=== PATIENT | female | born 1940 | race Caucasian/White ===

== ENCOUNTER 2017-12-14 14:03 | Inpatient (IN) | payer MEDICARE, BC ==
[2017-12-14] MEDS ORDERED: IPRATROPIUM-ALBUTEROL 3 ML NEB INHALATION STA (14:05)
[2017-12-14] MEDS ORDERED: SODIUM CHLORIDE 0.9% 500 ML IV STA (14:05)
[2017-12-14] MEDS ORDERED: SODIUM CHLORIDE 0.9% 1,000 ML IV STA (14:05)
[2017-12-14] MEDS ORDERED: MAGNESIUM SULFATE-D5W PMX 1 GM in DEXTROSE/WATER 1 100ML.BAG IVPB STA (14:05)
[2017-12-14] MEDS ORDERED: methylPREDNISolone SOD SUCCI 125 MG/2 ML VIAL IV STA (14:05)
[2017-12-14 14:56] LABS: Basophils % (A) 0 %; Eosinophils % (A) 0 %; HCT 44.4 % (34.0-46.0); HGB 14.6 gm/dL (11.4-16.0); Lymphocytes # (A) 1.3 k/uL (1.0-4.8); Lymphocytes % (A) 11 %; MCHC 32.9 g/dL (31.0-37.0); Mean Platelet Volume 6.9; Monocytes # (A) 0.7 k/uL (0-1.0); Monocytes % (A) 6 %; Neutrophils # (A) 9.8 k/uL (1.3-7.7); Neutrophils % (A) 82 %; Platelet Count 204 k/uL (150-450); RBC 4.88 m/uL (3.80-5.40); RDW 13.7 % (11.5-15.5)
[2017-12-14 14:57] LABS: Partial Thromboplastin Time 22.7 sec (22.0-30.0); Prothrombin Time 9.9 sec (9.0-12.0)
--- NOTE | 2017-12-14 15:02 | XR ---
EXAMINATION TYPE: XR chest 2V DATE OF EXAM: 12/14/2017 COMPARISON: 12/14/2017 HISTORY: Shortness of breath and productive cough TECHNIQUE: Frontal and lateral views of the chest are obtained. FINDINGS: Increased anterior posterior diameter chest, pulmonary hyperinflation and biapical lucency are seen representing above underlying COPD appearing radiographically severe. Mild multilevel degen erative changes of the thoracic spine are also noted. Cardiomediastinal silhouette is nonenlarged and elongated. No focal consolidation, pleural effusion or pneumothorax is seen. IMPRESSION: No acute cardiopulmonary process. Findings suggestive of severe COPD.
[2017-12-14 15:34] LABS: Creatine Kinase 43 U/L (30-135)
[2017-12-14 15:40] LABS: ALT 20 U/L (9-52); AST 25 U/L (14-36); Albumin 3.8 g/dL (3.5-5.0); Alkaline Phosphatase 59 U/L (38-126); Anion Gap 11 mmol/L; Blood Urea Nitrogen 21 mg/dL (7-17); Calcium 9.4 mg/dL (8.4-10.2); Carbon Dioxide 27 mmol/L (22-30); Chloride 105 mmol/L (98-107); Glucose 106 mg/dL (74-99); Magnesium 1.7 mg/dL (1.6-2.3); Potassium 3.9 mmol/L (3.5-5.1); Sodium 143 mmol/L (137-145); Total Bilirubin 0.9 mg/dL (0.2-1.3)
[2017-12-14 15:46] LABS: Creatine Kinase MB 1.1 ng/mL (0.0-2.4); Troponin I <0.012 ng/mL (0.000-0.034)
--- NOTE | 2017-12-14 16:27 | ED ---
SOB HPI - General Chief Complaint: Shortness of Breath Stated Complaint: Diff Breathing Time Seen by Provider: 12/14/17 14:05 Source: patient, RN notes reviewed Mode of arrival: EMS Limitations: no limitations - History of Present Illness Initial Comments: This is a 77-year-old female with a long history of smoking 1 pack cigarettes per day but no diagnosis of COPD or asthma states she had the onset 5 days ago shortness of breath is got progressively worse throughout the week. No fevers chills nausea vomiting sweats or chest pain she did take her 's antibiotics earlier and awake without relief she says a doctor many years. No other modifying factors at this time. She did start getting relief after EMS arrived and she was given updraft and oxygen. MD Complaint: shortness of breath - Related Data Home Medications Medication Instructions Recorded Confirmed Amoxic-Pot Clav 875-125Mg 1 tab PO Q12HR 12/14/17 12/14/17 [Augmentin 875-125] Budesonide/Formoterol Fumarate 1 puff PO RT-DAILY 12/14/17 12/14/17 [Symbicort 160-4.5 Mcg Inhaler] Dayquill 5 ml PO DAILY 12/14/17 12/14/17 Allergies Allergy/AdvReac Type Severity Reaction Status Date / Time No Known Allergies Allergy Verified 12/14/17 15:16 Review of Systems ROS Statement: Those systems with pertinent positive or pertinent negative responses have been documented in the HPI. ROS Other: All systems not noted in ROS Statement are negative. Past Medical History Past Medical History: No Reported History Past Surgical History: Appendectomy, Tonsillectomy Past Psychological History: No Psychological Hx Reported Smoking Status: Current every day smoker Past Alcohol Use History: Rare Past Drug Use History: None Reported General Exam - General Exam Comments Initial Comments: This a well-developed well-nourished awake alert oriented 3 female who is dyspneic Limitations: no limitations General appearance: alert, anxious, in distress Head exam: Present: atraumatic, normocephalic, normal inspection Eye exam: Present: normal appearance, PERRL, EOMI. Absent: scleral icterus, conjunctival injection, periorbital swelling ENT exam: Present: mucous membranes dry Neck exam: Present: normal inspection. Absent: tenderness, meningismus, lymphadenopathy Respiratory exam: Present: wheezes, accessory muscle use, decreased breath sounds. Absent: respiratory distress, rales, rhonchi, stridor Cardiovascular Exam: Present: regular rate, normal rhythm, normal heart sounds. Absent: systolic murmur, diastolic murmur, rubs, gallop, clicks GI/Abdominal exam: Present: soft, normal bowel sounds. Absent: distended, tenderness, guarding, rebound, rigid Extremities exam: Present: normal inspection, full ROM, normal capillary refill. Absent: tenderness, pedal edema, joint swelling, calf tenderness Back exam: Present: normal inspection Neurological exam: Present: alert, oriented X3, CN II-XII intact Psychiatric exam: Present: normal affect, normal mood Skin exam: Present: warm, dry, intact, normal color. Absent: rash Course Vital Signs 12/14/17 12/14/17 12/14/17 14:09 14:24 14:30 Temperature 97.7 F Pulse Rate 100 93 Respiratory 16 30 H Rate Blood Pressure 201/111 O2 Sat by Pulse 95 Oximetry 12/14/17 12/14/17 14:33 15:24 Temperature Pulse Rate 85 89 Respiratory 16 Rate Blood Pressure 156/98 O2 Sat by Pulse 95 Oximetry - Reevaluation(s) Reevaluation #1: 12/14/17 16:26 Reevaluation reveals some improvement in her oxygenation is improved still wheezing still dyspneic and working to breathe but much improved Reevaluation #2: 12/14/17 16:28 We did discuss smoking and cessation and the benefits thereof. The time lasted 3.1 minutes Medical Decision Making - Medical Decision Making Patient will require inpatient treatment I did discuss case with patient family also with Dr. Ritchie who did come the emergency department see the patient. - Lab Data Result diagrams: 12/14/17 14:20 12/14/17 14:20 Lab Results 12/14/17 12/14/17 12/14/17 Range/Units 14:20 14:20 14:20 WBC 12.0 H (3.8-10.6) k/uL RBC 4.88 (3.80-5.40) m/uL Hgb 14.6 (11.4-16.0) gm/dL Hct 44.4 (34.0-46.0) % MCV 91.0 (80.0-100.0) fL MCH 30.0 (25.0-35.0) pg MCHC 32.9 (31.0-37.0) g/dL RDW 13.7 (11.5-15.5) % Plt Count 204 (150-450) k/uL Neutrophils % 82 % Lymphocytes % 11 % Monocytes % 6 % Eosinophils % 0 % Basophils % 0 % Neutrophils # 9.8 H (1.3-7.7) k/uL Lymphocytes # 1.3 (1.0-4.8) k/uL Monocytes # 0.7 (0-1.0) k/uL Eosinophils # 0.0 (0-0.7) k/uL Basophils # 0.0 (0-0.2) k/uL PT (9.0-12.0) sec INR (<1.2) APTT (22.0-30.0) sec Sodium 143 (137-145) mmol/L Potassium 3.9 (3.5-5.1) mmol/L Chloride 105 (98-107) mmol/L Carbon Dioxide 27 (22-30) mmol/L Anion Gap 11 mmol/L BUN 21 H (7-17) mg/dL Creatinine 0.57 (0.52-1.04) mg/dL Est GFR (CKD-EPI)AfAm >90 (>60 ml/min/1.73 sqM) Est GFR (CKD-EPI)NonAf >90 (>60 ml/min/1.73 sqM) Glucose 106 H (74-99) mg/dL Calcium 9.4 (8.4-10.2) mg/dL Magnesium 1.7 (1.6-2.3) mg/dL Total Bilirubin 0.9 (0.2-1.3) mg/dL AST 25 (14-36) U/L ALT 20 (9-52) U/L Alkaline Phosphatase 59 (38-126) U/L Total Creatine Kinase 43 (30-135) U/L CK-MB (CK-2) 1.1 (0.0-2.4) ng/mL CK-MB (CK-2) Rel Index 2.6 Troponin I <0.012 (0.000-0.034) ng/mL NT-Pro-B Natriuret Pep pg/mL Total Protein 7.0 (6.3-8.2) g/dL Albumin 3.8 (3.5-5.0) g/dL 10/05/18 10/05/18 Range/Units 14:20 14:20 WBC (3.8-10.6) k/uL RBC (3.80-5.40) m/uL Hgb (11.4-16.0) gm/dL Hct (34.0-46.0) % MCV (80.0-100.0) fL MCH (25.0-35.0) pg MCHC (31.0-37.0) g/dL RDW (11.5-15.5) % Plt Count (150-450) k/uL Neutrophils % % Lymphocytes % % Monocytes % % Eosinophils % % Basophils % % Neutrophils # (1.3-7.7) k/uL Lymphocytes # (1.0-4.8) k/uL Monocytes # (0-1.0) k/uL Eosinophils # (0-0.7) k/uL Basophils # (0-0.2) k/uL PT 9.9 (9.0-12.0) sec INR 1.0 (<1.2) APTT 22.7 (22.0-30.0) sec Sodium (137-145) mmol/L Potassium (3.5-5.1) mmol/L Chloride (98-107) mmol/L Carbon Dioxide (22-30) mmol/L Anion Gap mmol/L BUN (7-17) mg/dL Creatinine (0.52-1.04) mg/dL Est GFR (CKD-EPI)AfAm (>60 ml/min/1.73 sqM) Est GFR (CKD-EPI)NonAf (>60 ml/min/1.73 sqM) Glucose (74-99) mg/dL Calcium (8.4-10.2) mg/dL Magnesium (1.6-2.3) mg/dL Total Bilirubin (0.2-1.3) mg/dL AST (14-36) U/L ALT (9-52) U/L Alkaline Phosphatase (38-126) U/L Total Creatine Kinase (30-135) U/L CK-MB (CK-2) (0.0-2.4) ng/mL CK-MB (CK-2) Rel Index Troponin I (0.000-0.034) ng/mL NT-Pro-B Natriuret Pep 260 pg/mL Total Protein (6.3-8.2) g/dL Albumin (3.5-5.0) g/dL - EKG Data -: EKG Interpreted by Me (Sinus rhythm rate of 86. Interval 126 respirations 92 QT since QTC 376/449) - Radiology Data Radiology results: image reviewed (I did review the imaging no definite infiltrates consistent with COPD) Critical Care Time Critical Care Time: Yes Critical Care Time: 39 minutes of critical care time which includes monitoring EMS run and discussed with paramedics, his tree physical labs x-rays of the patient multiple reevaluation patient responsive therapy discuss with the patient family regarding findings discussion with the beta physician admission orders and documentation of the above Disposition Clinical Impression: Acute exacerbation of chronic obstructive airways disease, Adult respiratory distress syndrome, Hypoxemia, Smoking Disposition: ADMITTED IP TO THIS HOSP Condition: Stable Referrals: None,Stated [Primary Care Provider] - 1-2 days
[2017-12-14] MEDS ORDERED: ONDANSETRON 4 MG/2 ML VIAL IVP PRN (18:20)
[2017-12-14] MEDS ORDERED: MELATONIN 3 MG TABLET PO PRN (18:20)
[2017-12-14] MEDS ORDERED: NALOXONE 0.4 MG/ML 1 ML VIAL IV PRN (18:20)
[2017-12-14] MEDS ORDERED: HYDROcodone/APAP 5-325MG 1 EACH TAB PO PRN (18:20)
[2017-12-14] MEDS ORDERED: ACETAMINOPHEN TAB 325 MG TAB PO PRN (18:20)
[2017-12-14] MEDS ORDERED: ALBUTEROL NEBULIZED 2.5 MG/3 ML INHALATION PRN (18:23)
--- NOTE | 2017-12-14 18:38 | P.HPIM ---
History of Present Illness H&P Date: 12/14/17 Chief Complaint: shortness of breath Patient is a 77-year-old female with no known past medical history who presented to the emergency department. EMS for shortness of breath. In the ER she underwent an extensive evaluation. On her initial vital signs she was tachycardic and had an elevated blood pressure of 201/111. She was having shortness of breath and tachypneic with accessory muscle use. Initial laboratory analysis demonstrated an elevated white blood cell count and elevated BUN. She was given a dose of bronchodilators, steroids, and magnesium. She continued to be dyspneic and their request was made for admission. Patient seen and examined at bedside in the ER. She states that she started getting sick approximately 6 days ago. She initial bleed thought she had a cold due to a nonproductive cough, runny nose, and congestion. She then started developing shortness of breath which has progressively worsened. She reports that she often wheezes but this is worse than her baseline. Her cough has become productive of white sputum. Her breathing is worse with exertion or with lying flat. She's been unable to lie flat for 1 year secondary to difficulty breathing. She is feeling overall weak and fatigued. She did try taking several amoxicillin which they had at home which did not help. She denies any fevers or chills. She had decreased appetite for over a year and has lost approximately 20 pounds. She has not seen a PCP in years. She has smoked one pack per day since age 16. She denies any chest pain, lightheadedness, dizziness, nausea, vomiting, diarrhea, constipation, and dysuria. Review of Systems Pertinent positives and negatives as discussed in HPI, a complete review of systems was performed and all other systems are negative. Past Medical History Past Medical History: No Reported History Past Surgical History: Appendectomy, Tonsillectomy Additional Past Surgical History / Comment(s): Bilateral cataracts Past Psychological History: No Psychological Hx Reported Smoking Status: Current every day smoker Past Alcohol Use History: Rare Past Drug Use History: None Reported Additional History: Lives with her , no assistive devices - Past Family History Mother Additional Family Medical History / Comment(s): Mother from a ruptured brain aneurysm, history of a heart attack Father Additional Family Medical History / Comment(s): Father from bladder cancer Medications and Allergies Home Medications Medication Instructions Recorded Confirmed Type Amoxic-Pot Clav 875-125Mg 1 tab PO Q12HR 12/14/17 12/14/17 History [Augmentin 875-125] Budesonide/Formoterol Fumarate 1 puff PO RT-DAILY 12/14/17 12/14/17 History [Symbicort 160-4.5 Mcg Inhaler] Dayquill 5 ml PO DAILY 12/14/17 12/14/17 History Allergies Allergy/AdvReac Type Severity Reaction Status Date / Time No Known Allergies Allergy Verified 12/14/17 15:16 Physical Exam Osteopathic Statement: *. No significant issues noted on an osteopathic structural exam other than those noted in the History and Physical/Consult. Vitals: Vital Signs Temp Pulse Resp BP Pulse Ox 12/14/17 15:24 89 16 156/98 95 12/14/17 14:33 85 12/14/17 14:30 30 H 12/14/17 14:24 93 12/14/17 14:09 97.7 F 100 16 201/111 95 Intake and Output 12/14/17 12/14/17 12/14/17 06:59 14:59 22:59 Other: Weight 40.823 kg General: Ill appearing, moderate distress, appears older than stated age, cachectic with temporal wasting Derm: no unusual rashes/lesions no unusual ecchymoses, warm, dry Head: atraumatic, normocephalic, symmetric Eyes: EOMI, no lid lag, anicteric sclera, pupils equal round reactive to light ENT: Nose and ears atraumatic, no thrush, no pharyngeal erythema Neck: No thyromegaly, no cervical lymphadenopathy, trachea midline, supple Mouth: no lip lesion, mucus membranes moist Cardiovascular: S1S2 reg, no murmur, positive posterior tibial pulse bilateral, no edema, capillary refill less than 2 seconds Lungs: Wheezes bilaterally, and accessory muscle use, +3 word conversational dyspnea Abdominal: soft, nontender to palpation, no guarding, no appreciable organomegaly, normal bowel sounds Ext: no gross muscle atrophy, muscle strength 5 out of 5 in all 4 extremities grossly, no contractures, Neuro: CN II-XI grossly intact, light touch intact all 4 extremities, finger to nose within normal limits, Psych: Alert, oriented, appropriate affect Results CBC & Chem 7: 12/14/17 14:20 12/14/17 14:20 Labs: Abnormal Lab Results - Last 24 Hours (Table) 12/14/17 12/14/17 Range/Units 14:20 14:20 WBC 12.0 H (3.8-10.6) k/uL Neutrophils # 9.8 H (1.3-7.7) k/uL BUN 21 H (7-17) mg/dL Glucose 106 H (74-99) mg/dL Comments: EKG reviewed and reveals normal sinus rhythm at a rate of 86, no significant ST- T wave changes Chest x-ray: report reviewed Thrombosis Risk Factor Assmnt - DVT/VTE Prophylaxis DVT/VTE Prophylaxis: Pharmacologic Prophylaxis ordered Assessment and Plan Assessment: Acute exacerbation of newly discovered COPD -Steroid burst and taper -DuoNeb scheduled with when necessary albuterol -Pulmonary hygiene -Mucinex -Zithromax -Patient does not have rapid improvement in her breathing by tomorrow morning she may need to be inpatient. -We will need outpatient referral to pulmonary. May also need pulmonary consultation if she does not respond to aggressive therapy overnight. Acute bronchitis -Zithromax -Pulmonary hygiene -Sputum culture Tobacco abuse -Cessation -Nicotine replacement Severe cachexia -Consult dietitian -Nutritional supplementation The patient is placed in observation with an anticipated less than 2 per night stay for evaluation of acute exacerbation of COPD. Surrogate decision-maker: -Cory CODE STATUS: Full code but would not want to be on a long-term vent DVT prophylaxis: Heparin subcutaneous Discussed with: Patient, Family, ED physician Anticipated discharge date: [address]: home, will need nebulizer A total of 35 minutes was spent on the care of this complex patient more than 50 % of the time was spent in counseling and care coordination.
[2017-12-14] MEDS: SODIUM CHLORIDE 0.9% 1,000 ML IV SCH (18:48)
[2017-12-14] MEDS: methylPREDNISolone SOD SUCCI 125 MG/2 ML VIAL IV SCH ×2 (18:57→23:47)
[2017-12-14] MEDS: FAMOTIDINE 20 MG TAB PO SCH (20:18)
[2017-12-14] MEDS: guaiFENesin 600 MG TABLET.ER PO SCH (20:19)
[2017-12-14] MEDS: HEPARIN SODIUM,PORCINE 5,000 UNIT/ML 1 ML VIAL SQ SCH (20:19)
[2017-12-14] MEDS: AZITHROMYCIN 250 MG TAB PO SCH (20:19)
[2017-12-14 20:52] LABS: Glucose,Whole Blood 187 mg/dL (75-99)
[2017-12-14] MEDS: IPRATROPIUM-ALBUTEROL 3 ML NEB INHALATION SCH (20:54)
[2017-12-15] MEDS: IPRATROPIUM-ALBUTEROL 3 ML NEB INHALATION SCH ×6 (00:59→20:35)
[2017-12-15] MEDS: SODIUM CHLORIDE 0.9% 1,000 ML IV SCH ×3 (03:58→21:56)
[2017-12-15] MEDS: methylPREDNISolone SOD SUCCI 125 MG/2 ML VIAL IV SCH ×4 (06:14→23:38)
[2017-12-15 07:39] LABS: Glucose,Whole Blood 159 mg/dL (75-99)
[2017-12-15] MEDS: NICOTINE 21MG/24HR PATCH TRANSDERM SCH (08:09)
[2017-12-15] MEDS: HEPARIN SODIUM,PORCINE 5,000 UNIT/ML 1 ML VIAL SQ SCH ×2 (08:09→20:09)
[2017-12-15] MEDS: guaiFENesin 600 MG TABLET.ER PO SCH ×2 (08:09→20:09)
[2017-12-15] MEDS: AZITHROMYCIN 250 MG TAB PO SCH (08:10)
[2017-12-15] MEDS: FAMOTIDINE 20 MG TAB PO SCH ×2 (08:10→20:09)
[2017-12-15 09:07] LABS: HCT 38.9 % (34.0-46.0); HGB 13.3 gm/dL (11.4-16.0); MCH 30.3 pg (25.0-35.0); MCHC 34.1 g/dL (31.0-37.0); MCV 88.6 fL (80.0-100.0); Mean Platelet Volume 6.7; Platelet Count 189 k/uL (150-450); RBC 4.39 m/uL (3.80-5.40); RDW 13.7 % (11.5-15.5); WBC 10.1 k/uL (3.8-10.6)
[2017-12-15 09:25] LABS: Anion Gap 11 mmol/L; Blood Urea Nitrogen 20 mg/dL (7-17); Calcium 9.3 mg/dL (8.4-10.2); Carbon Dioxide 23 mmol/L (22-30); Chloride 108 mmol/L (98-107); Glucose 187 mg/dL (74-99); Potassium 3.7 mmol/L (3.5-5.1); Sodium 142 mmol/L (137-145)
--- NOTE | 2017-12-15 09:30 | P.PN ---
Subjective Progress Note Date: 12/15/17 Principal diagnosis: nathalia is seen in follow up for acute copd exacerbation patient seen and examiend today , she reports that she was feeling some improvement until she started moving when she got SOB, and wheezing she continues to have some coughing but denies any fever, or chest pain. SHe just still feels congested Objective - Vital Signs Vital signs: Vital Signs Temp 97.8 F 12/15/17 07:00 Pulse 76 12/15/17 08:47 Resp 18 12/15/17 07:00 BP 126/76 12/15/17 07:00 Pulse Ox 95 12/15/17 07:00 Intake & Output 12/14/17 12/15/17 12/15/17 18:59 06:59 18:59 Intake Total 900 Balance 900 Weight 40.823 kg 40.823 kg Intake: Oral 900 Other: # Voids 2 # Bowel Movements 1 - Exam Constitutional: vital signs stable, Not in acute distress, pleasant, conversant Lungs: decrease breath sounds throughout, end expiratory wheezing, patient using accessory muscles of respiration Cardiovascular: Regular rate and rhythm, no murmurs, no gallops, no rubs, no peripheral edema Gastrointestinal: Soft, no tenderness to palpation, no palpable hepatosplenomegally, bowel sounds positive, no abdominal wall hernias Extremities: No digital cyanosis or clubbing, peripheral pulses palpable and equal over bilateral radial arteries and dorsalis pedis artery, no calf muscle tenderness Psych: Alert, oriented to place, person and time, appropriate affect, intact judgment Neuro: Cranial nerves II-XII grossly intact, no focal sensory deficits to touch - Labs CBC & Chem 7: 12/15/17 08:34 12/15/17 08:34 Labs: Abnormal Lab Results - Last 24 Hours (Table) 12/14/17 12/14/17 12/14/17 Range/Units 14:20 14:20 20:50 WBC 12.0 H (3.8-10.6) k/uL Neutrophils # 9.8 H (1.3-7.7) k/uL Chloride (98-107) mmol/L BUN 21 H (7-17) mg/dL Creatinine (0.52-1.04) mg/dL Glucose 106 H (74-99) mg/dL POC Glucose (mg/dL) 187 H (75-99) mg/dL 12/15/17 12/15/17 Range/Units 07:36 08:34 WBC (3.8-10.6) k/uL Neutrophils # (1.3-7.7) k/uL Chloride 108 H (98-107) mmol/L BUN 20 H (7-17) mg/dL Creatinine 0.51 L (0.52-1.04) mg/dL Glucose 187 H (74-99) mg/dL POC Glucose (mg/dL) 159 H (75-99) mg/dL Assessment and Plan Assessment: Patient is a 77-year-old female with no known past medical history who presented to the emergency department. EMS for shortness of breath. In the ER she underwent an extensive evaluation. On her initial vital signs she was tachycardic and had an elevated blood pressure of 201/111. She was having shortness of breath and tachypneic with accessory muscle use. Initial laboratory analysis demonstrated an elevated white blood cell count and elevated BUN. She was given a dose of bronchodilators, steroids, and magnesium. She continued to be dyspneic and their request was made for admission. Plan: Acute hypoxic respiratory failure 2/2 Acute exacerbation of newly discovered COPD Acute bronchitis -Steroid IV, switch to PO in AM -DuoNeb scheduled with when necessary albuterol -Pulmonary hygiene -Mucinex -Zithromax -OP follow up with pulmonary -Sputum culture Tobacco abuse -Cessation -Nicotine replacement Severe cachexia significant weight loss -Consult dietitian -Nutritional supplementation counseled regarding OP follow up with PCP and performing age appropriate cancer screening Elevated blood sugar, could be secondary to Steroids no histroy of DM check A1C insulin sliding scale DVT prophylaxis: Heparin subcutaneous Anticipated discharge place: home, will need nebulizer
[2017-12-15 12:15] LABS: Glucose,Whole Blood 136 mg/dL (75-99)
[2017-12-15] MEDS: INSULIN ASPART 100 UNIT/ML 1 ML 10 ML VIAL SQ SCH ×3 (12:16→21:56)
[2017-12-15 14:44] VITALS: BMI 14.5
--- NOTE | 2017-12-15 15:11 | ECHOF ---
Referral Reason:pulmonary HTN MEASUREMENTS -------- HEIGHT: 165.1 cm WEIGHT: 40.8 kg BP: IVSd: 1.0 cm (0.6 - 1.1) LVIDd: 4.3 cm (3.9 - 5.3) LVPWd: 0.8 cm (0.6 - 1.1) IVSs: 1.1 cm LVIDs: 3.3 cm LVPWs: 1.0 cm LA Diam: 2.3 cm (2.7 - 3.8) Ao Diam: 3.3 cm (2.0 - 3.7) AV Cusp: 1.6 cm (1.5 - 2.6) LA Diam: 3.2 cm (2.7 - 3.8) MV EXCURSION: 22.169 mm (> 18.000) MV EF SLOPE: 124 mm/s (70 - 150) EPSS: 1.3 cm MV E Go: 0.52 m/s MV DecT: 182 ms MV A Go: 0.80 m/s MV E/A Ratio: 0.64 RAP: 5.00 mmHg RVSP: 9.86 mmHg FINDINGS -------- Sinus rhythm. This was a technically adequate study. LV size, wall thickness and systolic function are normal, with an EF greater than 55%. The left griselda tricular size is normal. The right ventricle is normal in size. The left atrial size is normal. The right atrial size is normal. The aortic valve is trileaflet, and appears structurally normal. No aortic stenosis or regurgitation. Mild mitral regurgitation is present. Mild tricuspid regurgitation present. There is no evidence of pulmonary hypertension. The right v entricular systolic pressure, as measured by Doppler, is 9.86mmHg. Trace/mild (physiologic) pulmonic regurgitation. The aortic root size is normal. There is no pericardial effusion. CONCLUSIONS -------- 1. LV size, wall thickness and systolic function are normal, with an EF greater than 55%. 2. The left ventricular size is normal. 3. The right ventricle is normal in size. 4. The left atrial size is normal. 5. The right atrial size is normal. 6. The aortic valve is trileaflet, and appears structurally normal. No aortic stenosis or regurgitati on. 7. Mild mitral regurgitation is present. 8. Mild tricuspid regurgitation present. 9. There is no evidence of pulmonary hypertension. 10. The right ventricular systolic pressure, as measured by Doppler, is 9.86mmHg. 11. Trace/mild (physiologic) pulmonic regurgitation. 12. The aortic root size is normal. 13. There is no pericardial effusion. LOGISTICS SUPPLY OFFICER: Negrita Fernández RDCS
[2017-12-15 17:19] LABS: Glucose,Whole Blood 151 mg/dL (75-99)
[2017-12-15 17:49] LABS: Hemoglobin A1C 5.2 % (4.0-6.0)
[2017-12-15 21:41] LABS: Glucose,Whole Blood 153 mg/dL (75-99)
[2017-12-16] MEDS: IPRATROPIUM-ALBUTEROL 3 ML NEB INHALATION SCH ×6 (00:28→20:17)
[2017-12-16] MEDS: methylPREDNISolone SOD SUCCI 125 MG/2 ML VIAL IV SCH (05:39)
[2017-12-16 07:34] LABS: Glucose,Whole Blood 139 mg/dL (75-99)
[2017-12-16] MEDS: INSULIN ASPART 100 UNIT/ML 1 ML 10 ML VIAL SQ SCH ×4 (07:49→21:05)
[2017-12-16] MEDS: predniSONE 50 MG TAB PO SCH (07:50)
[2017-12-16] MEDS: NICOTINE 21MG/24HR PATCH TRANSDERM SCH (07:50)
[2017-12-16] MEDS: AZITHROMYCIN 250 MG TAB PO SCH (07:50)
[2017-12-16] MEDS: FAMOTIDINE 20 MG TAB PO SCH ×2 (07:50→20:33)
[2017-12-16] MEDS: guaiFENesin 600 MG TABLET.ER PO SCH ×2 (07:50→20:33)
[2017-12-16] MEDS: HEPARIN SODIUM,PORCINE 5,000 UNIT/ML 1 ML VIAL SQ SCH ×2 (07:50→20:33)
[2017-12-16] MEDS: SODIUM CHLORIDE 0.9% 1,000 ML IV SCH (07:51)
[2017-12-16 09:30] LABS: Basophils % (A) 0 %; Eosinophils # (A) 0.1 k/uL (0-0.7); Eosinophils % (A) 1 %; HCT 38.2 % (34.0-46.0); HGB 12.7 gm/dL (11.4-16.0); Lymphocytes # (A) 0.6 k/uL (1.0-4.8); Lymphocytes % (A) 3 %; MCH 29.9 pg (25.0-35.0); MCHC 33.3 g/dL (31.0-37.0); MCV 89.9 fL (80.0-100.0); Mean Platelet Volume 7.4; Monocytes # (A) 0.4 k/uL (0-1.0); Monocytes % (A) 2 %; Neutrophils # (A) 18.8 k/uL (1.3-7.7); Neutrophils % (A) 94 %; Platelet Count 218 k/uL (150-450); RBC 4.26 m/uL (3.80-5.40); RDW 13.9 % (11.5-15.5); WBC 19.9 k/uL (3.8-10.6)
[2017-12-16 09:41] LABS: Anion Gap 10 mmol/L; Blood Urea Nitrogen 23 mg/dL (7-17); Calcium 9.6 mg/dL (8.4-10.2); Carbon Dioxide 22 mmol/L (22-30); Chloride 109 mmol/L (98-107); Glucose 128 mg/dL (74-99); Potassium 3.9 mmol/L (3.5-5.1); Sodium 141 mmol/L (137-145)
[2017-12-16 11:51] LABS: Glucose,Whole Blood 130 mg/dL (75-99)
--- NOTE | 2017-12-16 12:31 | P.PN ---
Subjective Progress Note Date: 12/16/17 Principal diagnosis: nathalia is seen in follow up for acute copd exacerbation patient seen and examiend today , patient continues to feel more improvement, however she reported that without oxygen she got short of breath while getting dressed. Her nurse helped her get an oxygen tank and she was able to walk the hallways. She denies any chest pain fevers or chills. Tolerating diet denies any nausea vomiting Objective - Vital Signs Vital signs: Vital Signs Temp 98.1 F 12/16/17 07:00 Pulse 92 12/16/17 12:13 Resp 20 12/16/17 07:00 BP 170/99 12/16/17 07:00 Pulse Ox 95 12/16/17 07:00 Intake & Output 12/15/17 12/16/17 12/16/17 18:59 06:59 18:59 Intake Total 700 450 Balance 700 450 Weight 40.823 kg 40.823 kg Intake: Oral 700 450 Other: # Voids 2 1 2 # Bowel Movements 1 - Exam Constitutional: vital signs stable, Not in acute distress, pleasant, conversant Lungs: decrease breath sounds throughout, but slight improvement compared to yesterday, no wheezing today, no use of accessory muscles of respiration Cardiovascular: Regular rate and rhythm, no murmurs, no gallops, no rubs, no peripheral edema Gastrointestinal: Soft, no tenderness to palpation, no palpable hepatosplenomegally, bowel sounds positive Extremities: No digital cyanosis or clubbing, peripheral pulses palpable and equal over bilateral radial arteries and dorsalis pedis artery, no calf muscle tenderness Psych: Alert, oriented to place, person and time, appropriate affect, intact judgment Neuro: Cranial nerves II-XII grossly intact, no focal sensory deficits to touch - Labs CBC & Chem 7: 12/16/17 09:09 12/16/17 09:09 Labs: Abnormal Lab Results - Last 24 Hours (Table) 12/15/17 12/15/17 12/16/17 Range/Units 17:17 21:27 07:33 WBC (3.8-10.6) k/uL Neutrophils # (1.3-7.7) k/uL Lymphocytes # (1.0-4.8) k/uL Chloride (98-107) mmol/L BUN (7-17) mg/dL Creatinine (0.52-1.04) mg/dL Glucose (74-99) mg/dL POC Glucose (mg/dL) 151 H 153 H 139 H (75-99) mg/dL 12/16/17 12/16/17 12/16/17 Range/Units 09:09 09:09 11:43 WBC 19.9 H (3.8-10.6) k/uL Neutrophils # 18.8 H (1.3-7.7) k/uL Lymphocytes # 0.6 L (1.0-4.8) k/uL Chloride 109 H (98-107) mmol/L BUN 23 H (7-17) mg/dL Creatinine 0.51 L (0.52-1.04) mg/dL Glucose 128 H (74-99) mg/dL POC Glucose (mg/dL) 130 H (75-99) mg/dL Assessment and Plan Assessment: Patient is a 77-year-old female with no known past medical history who presented to the emergency department. EMS for shortness of breath. In the ER she underwent an extensive evaluation. On her initial vital signs she was tachycardic and had an elevated blood pressure of 201/111. She was having shortness of breath and tachypneic with accessory muscle use. Initial laboratory analysis demonstrated an elevated white blood cell count and elevated BUN. She was given a dose of bronchodilators, steroids, and magnesium. She continued to be dyspneic and their request was made for admission. 12/16 Patient continues to be on systemic steroids however switched to by mouth, continue with when necessary DuoNeb's and inhalers. 2-D echocardiogram showed left ventricle ejection fraction of 55%. Patient blood pressure is stable today Patient will need evaluation for home oxygen prior to discharge Plan: Acute hypoxic respiratory failure 2/2 Acute exacerbation of newly discovered COPD Acute bronchitis -By mouth steroids -DuoNeb scheduled with when necessary albuterol -Pulmonary hygiene -Mucinex -Zithromax -OP follow up with pulmonary -Sputum culture Assessment for home oxygen needs prior to discharge Tobacco abuse -Cessation -Nicotine replacement Severe cachexia significant weight loss -Consult dietitian -Nutritional supplementation counseled regarding OP follow up with PCP and performing age appropriate cancer screening Elevated blood sugar, could be secondary to Steroids no histroy of DM Follow-up A1C insulin sliding scale DVT prophylaxis: Heparin subcutaneous Possible discharge in a.m. Anticipated discharge place: home, will need nebulizer , need assessment for home oxygen requirement
[2017-12-16 17:41] LABS: Glucose,Whole Blood 146 mg/dL (75-99)
[2017-12-16 21:05] LABS: Glucose,Whole Blood 116 mg/dL (75-99)
[2017-12-17] MEDS: IPRATROPIUM-ALBUTEROL 3 ML NEB INHALATION SCH ×6 (00:18→20:53)
[2017-12-17 07:22] LABS: Glucose,Whole Blood 86 mg/dL (75-99)
[2017-12-17] MEDS: INSULIN ASPART 100 UNIT/ML 1 ML 10 ML VIAL SQ SCH ×4 (07:22→20:57)
[2017-12-17] MEDS: FAMOTIDINE 20 MG TAB PO SCH ×2 (07:43→20:56)
[2017-12-17] MEDS: AZITHROMYCIN 250 MG TAB PO SCH (07:43)
[2017-12-17] MEDS: NICOTINE 21MG/24HR PATCH TRANSDERM SCH (07:44)
[2017-12-17] MEDS: HEPARIN SODIUM,PORCINE 5,000 UNIT/ML 1 ML VIAL SQ SCH ×2 (07:44→20:57)
[2017-12-17] MEDS: predniSONE 50 MG TAB PO SCH (07:44)
[2017-12-17] MEDS: guaiFENesin 600 MG TABLET.ER PO SCH ×2 (07:44→20:56)
[2017-12-17 12:06] LABS: Glucose,Whole Blood 122 mg/dL (75-99)
--- NOTE | 2017-12-17 14:14 | P.PN ---
Subjective Progress Note Date: 12/17/17 Principal diagnosis: shortness of breath Patient is a 77-year-old female with no known past medical history who presented to the emergency department. EMS for shortness of breath. In the ER she underwent an extensive evaluation. On her initial vital signs she was tachycardic and had an elevated blood pressure of 201/111. She was having shortness of breath and tachypneic with accessory muscle use. Initial laboratory analysis demonstrated an elevated white blood cell count and elevated BUN. She was given a dose of bronchodilators, steroids, and magnesium. She continued to be dyspneic and their request was made for admission. She was continued on bronchodilators, steroids, antibiotics. She has slow continued improvement. Patient seen and examined at bedside. She is still feeling very dyspneic. She is having shortness of breath with 2-3 words. She still has some chest tightness. No chest congestion. Her cough is improved significantly. Still feeling very very weak. He has been working with physical therapy. Has not been able to get the hallways. She would like to see the physician baking assistant Cilnt out of Dr. Perez's office. She would like home health if we are able to arrange it but she is not established with a PCP yet. Objective - Vital Signs Vital signs: Vital Signs Temp 98.0 F 12/17/17 07:00 Pulse 88 12/17/17 11:37 Resp 18 12/17/17 07:00 BP 160/85 12/17/17 07:00 Pulse Ox 93 L 12/17/17 09:22 Intake & Output 12/16/17 12/17/17 12/17/17 18:59 06:59 18:59 Intake Total 300 Balance 300 Weight 40.823 kg Intake: Oral 300 Other: Voiding Method Toilet # Voids 2 2 - Exam General: Chronically ill appearing, no distress, appears at stated age Derm: warm, dry Head: atraumatic, normocephalic, symmetric Eyes: EOMI, no lid lag, anicteric sclera Mouth: no lip lesion, mucus membranes moist Cardiovascular: S1S2 reg, no murmur, positive posterior tibial pulse bilateral, Lungs: decreased bs b/l bases, no rhonchi, no rales, no accessory muscle use Abdominal: soft, nontender to palpation, no guarding, no appreciable organomegaly Ext: no gross muscle atrophy, no edema, no contractures Neuro: CN II-XI grossly intact, no focal neuro deficits Psych: Alert, oriented, appropriate affect - Labs CBC & Chem 7: 12/16/17 09:09 12/16/17 09:09 Labs: Abnormal Lab Results - Last 24 Hours (Table) 12/16/17 12/16/17 12/17/17 Range/Units 17:28 21:03 12:05 POC Glucose (mg/dL) 146 H 116 H 122 H (75-99) mg/dL Assessment and Plan Assessment: Acute exacerbation of newly discovered COPD, Acute hypoxic respiratory failure -Steroid burst and taper, now on PO -DuoNeb scheduled with when necessary albuterol -Pulmonary hygiene -Mucinex -Zithromax -plan on discharge home on Anoro elipta or equilivant plus albuterol rescue, and nebulizer -We will need outpatient referral to pulmonary. Dr. Granados Acute bronchitis -Zithromax -Pulmonary hygiene, hasn't been able to produce sputum Tobacco abuse -Cessation -Nicotine replacement elevated blood sugar, improved - due to steroids - A1C 5.2 Severe cachexia -Dietitian recs -Nutritional supplementation Elevated BP, improving - outpatient follow-up DVT prophylaxis: Heparin subcutaneous Discussed with: Patient, Family, Anticipated discharge date: [address]: home with home health, will need nebulizer A total of 35 minutes was spent on the care of this complex patient more than 50 % of the time was spent in counseling and care coordination.
[2017-12-17 17:11] LABS: Glucose,Whole Blood 124 mg/dL (75-99)
[2017-12-17 20:44] LABS: Glucose,Whole Blood 96 mg/dL (75-99)
[2017-12-18] MEDS: IPRATROPIUM-ALBUTEROL 3 ML NEB INHALATION SCH ×3 (00:04→11:57)
[2017-12-18] MEDS ORDERED: IPRATROPIUM-ALBUTEROL 3 ML NEB INHALATION PRN (00:05)
[2017-12-18 06:15] VITALS: BP 169/92; TEMP 97.9
[2017-12-18 07:04] LABS: Glucose,Whole Blood 88 mg/dL (75-99)
[2017-12-18] MEDS: HEPARIN SODIUM,PORCINE 5,000 UNIT/ML 1 ML VIAL SQ SCH (08:15)
[2017-12-18] MEDS: NICOTINE 21MG/24HR PATCH TRANSDERM SCH (08:15)
[2017-12-18] MEDS: FAMOTIDINE 20 MG TAB PO SCH (08:15)
[2017-12-18] MEDS: predniSONE 50 MG TAB PO SCH (08:15)
[2017-12-18] MEDS: AZITHROMYCIN 250 MG TAB PO SCH (08:15)
[2017-12-18] MEDS: INSULIN ASPART 100 UNIT/ML 1 ML 10 ML VIAL SQ SCH ×2 (08:15→13:42)
[2017-12-18] MEDS: guaiFENesin 600 MG TABLET.ER PO SCH (08:15)
[2017-12-18 11:28] LABS: Glucose,Whole Blood 99 mg/dL (75-99)
--- NOTE | 2017-12-18 11:49 | P.DS ---
Providers Date of admission: 12/17/17 18:15 Expected date of discharge: 12/18/17 Attending physician: Vesta Resendiz DO Primary care physician: Stated None Hospital Course: Discharge Diagnosis: Acute exacerbation of newly discovered COPD Acute hypoxic respiratory failure, likely will be chronic hypoxic respiratory failure Acute bronchitis Hyperglycemia secondary to steroids, A1c 5.2 Severe cachexia Tobacco abuse Elevated blood pressures without formal diagnosis of hypertension Hospital Course: Patient is a 77-year-old female with no known past medical history who presented to the emergency department via EMS for shortness of breath. In the ER she underwent an extensive evaluation. On her initial vital signs she was tachycardic and had an elevated blood pressure of 201/111. She was having shortness of breath and tachypneic with accessory muscle use. Initial laboratory analysis demonstrated an elevated white blood cell count and elevated BUN. She was given a dose of bronchodilators, steroids, and magnesium. She continued to be dyspneic and a request was made for admission. She was continued on bronchodilators, steroids, antibiotics. She has slow continued improvement. Her cough greatly improved. Her shortness of breath improved. She continued to be fatigued. She met with dietary. We discussed at length the fact that she will need to establish with a clinical lab technologist. I've referred her to Dr. Granados. We have elected to start her on Anoro Ellipta inhaler as well as as needed albuterol HFA and nebulized treatments. Had a long discussion with her and the family and how to use her inhalers and nebulizer. She also was evaluated for home O2 and will be discharged on oxygen. She has not seen a primary care physician in the past like to establish with Sadie Wolfe and possibly see the PA Ms. Jarmaillo at their office. She also had some elevated blood sugars here but her A1c was found to be less than 6 and leaving it was felt that this was secondary to steroid use. Her blood pressure was labile during admission ranging from a systolic of 120s up to systolic 160s. She was not started on any medications and it was felt that this may not be accurate readings due to her hospitalization. She will need to follow-up with PCP for further evaluation for possible hypertension. She was determined stable for discharge home. She already completed 5 days of antibiotic therapy. She will complete a steroid taper as an outpatient. She was also given a prescription for inhalers and nebulizers. She would like to quit smoking and has been given a prescription for the nicotine quit kit. Patient seen and examined at bedside. Cough is almost completely resolved. Still with some fatigue. Redness of breath much improved. No nausea or vomiting. Vital signs reviewed and stable. General: non toxic, no distress, appears older than stated age, cachectic Derm: warm, dry Head: atraumatic, normocephalic, symmetric Eyes: EOMI, no lid lag, anicteric sclera Mouth: no lip lesion, mucus membranes moist Cardiovascular: S1S2 reg, no murmur, positive posterior tibial pulse bilateral, Lungs: Decreased breath sounds bilateral bases, no rhonchi, no rales , no accessory muscle use Abdominal: soft, nontender to palpation, no guarding, no appreciable organomegaly Ext: no gross muscle atrophy, no edema, no contractures Neuro: CN II-XI grossly intact, no focal neuro defcits Psych: Alert, oriented, appropriate affect A total of minutes of time were spent preparing this complex discharge summary . Pertinent Studies: Echocardiogram-ejection fraction 55%, RVSP 9.86 Chest [id number] suggestive of severe COPD Patient Condition at Discharge: Stable Plan - Discharge Summary Discharge Rx Participant: No New Discharge Prescriptions: New Albuterol Inhaler [Ventolin Hfa Inhaler] 1 - 2 puff INHALATION Q4H PRN #1 inhaler PRN Reason: Shortness Of Breath Or Wheezing Albuterol Nebulized [Ventolin Nebulized] 2.5 mg INHALATION RT-QID PRN 30 Days #1 box PRN Reason: Shortness Of Breath Or Wheezing guaiFENesin [Mucinex] 600 mg PO Q12HR #60 tablet.er predniSONE 0 mg PO DIRECTED #12 tab Umeclidinium Brm/Vilanterol Tr [Anoro Ellipta 62.5-25 Mcg INH] 1 puff INHALATION DAILY #1 device Nicotine 21Mg/24Hr Patch [Habitrol] 1 each TRANSDERM DAILY #1 kit Discontinued Dayquill 5 ml PO DAILY Amoxic-Pot Clav 875-125Mg [Augmentin 875-125] 1 tab PO Q12HR Budesonide/Formoterol Fumarate [Symbicort 160-4.5 Mcg Inhaler] 1 puff PO RT- DAILY Discharge Medication List Albuterol Inhaler [Ventolin Hfa Inhaler] 1 - 2 puff INHALATION Q4H PRN #1 inhaler 12/18/17 [Rx] Albuterol Nebulized [Ventolin Nebulized] 2.5 mg INHALATION RT-QID PRN 30 Days # 1 box 12/18/17 [Rx] Nicotine 21Mg/24Hr Patch [Habitrol] 1 each TRANSDERM DAILY #1 kit 12/18/17 [Rx] Umeclidinium Brm/Vilanterol Tr [Anoro Ellipta 62.5-25 Mcg INH] 1 puff INHALATION DAILY #1 device 12/18/17 [Rx] guaiFENesin [Mucinex] 600 mg PO Q12HR #60 tablet.er 12/18/17 [Rx] predniSONE 0 mg PO DIRECTED #12 tab 12/18/17 [Rx] Follow up Appointment(s)/Referral(s): Sadie Perez DO [REFERRING] - 12/20/17 10:30 am None,Stated [Primary Care Provider] - 1-2 days Treva Granados MD [STAFF PHYSICIAN] - 2 Weeks Activity/Diet/Wound Care/Special Instructions: regular diet activity as tolerated Discharge Disposition: HOME WITH HOME HEALTH SERVICES
[2017-12-18 11:57] VITALS: PULSE 89; RESP 18
--- NOTE | 2017-12-18 14:49 | CDI ---
Last Revision, February 2017 Documentation Clarification Form Date: 12/18/17 From: Debi Yeung RN Admit Date: 12/17/2017 6:15:00 PM Patient Name: Chelsea Bland Visit Number: [id number] ATTENTION: The Clinical Documentation Specialists (CDI) and [facility] Coding Staff appreciate your assistance in clarifying documentation. Please respond to the clarification below the line at the bottom and electronically sign. The CDI & [facility] Coding staff will review the response and follow-up if needed. Please note: Queries are made part of the Legal Health Record. If you have any questions, please contact the author of this message via ITS. Vesta Garcia, DO, Can you please render your opinion on the following documentation? Pt admitted for shortness of breath, newly discovered exacerbation of COPD. History/Risk Factors: acute exacerbation COPD, adult respiratory distress syndrome, hypoxemia, smoker Clinical Indicators: Labs: Albumin 3.8, Total Protein 7.0 Current BMI: 14.5 Insufficient energy intake: no Weight Loss: PN 10/6 states "significant weight loss" Loss of subcutaneous fat: yes per RD Loss of muscle mass: yes per RD RD states "physical appearance emaciated" "underweight" "protrusion of clavicles , squared shoulders Treatment: Dietary Consult: yes Supplements: Ensure , commercial beverage Lab monitoring In your professional opinion, can you please clarify if these findings signify one of the following conditions? Mild Protein-Calorie Malnutrition Moderate Protein-Calorie Malnutrition Severe Protein-Calorie Malnutrition Malnutrition, Unspecified Other condition, please specify Unable to determine MTDD
== END 2017-12-18 15:07 | disposition home health service (06) | DRG 190 ==
LOC: EC 14:03 → 4MS4W 16:46 → OBSVTOIN 12-17 18:15
PROVIDERS: ADMIT Internal Medicine; ATTEND Internal Medicine
DX: J44.0 Chronic obstructive pulmonary disease with (acute) lower respiratory infection (principal); J96.21 Acute and chronic respiratory failure with hypoxia; E43 Unspecified severe protein-calorie malnutrition; R64 Cachexia; Z68.1 Body mass index [BMI] 19.9 or less, adult; J44.1 Chronic obstructive pulmonary disease with (acute) exacerbation; J20.9 Acute bronchitis, unspecified; F17.210 Nicotine dependence, cigarettes, uncomplicated; T38.0X5A Adverse effect of glucocorticoids and synthetic analogues, initial encounter; Z79.51 Long term (current) use of inhaled steroids; Z80.52 Family history of malignant neoplasm of bladder; Z82.49 Family history of ischemic heart disease and other diseases of the circulatory system; Z79.899 Other long term (current) drug therapy; R03.0 Elevated blood-pressure reading, without diagnosis of hypertension
CPT/HCPCS: 36415; 71046; 80048; 80053; 82550; 82553; 83036; 83735; 83880; 84484; 85025; 85027; 85610; 85730; 93005; 93306; 94640; 96365; 96366; 96375; 99291; 99406

== ENCOUNTER 2018-07-11 15:00 | Inpatient (IN) | payer MEDICARE, BC ==
[2018-07-11] MEDS ORDERED: IPRATROPIUM 0.5 MG/2.5 ML NEBU INHALATION STA (15:01)
[2018-07-11] MEDS ORDERED: ALBUTEROL NEBULIZED 2.5 MG/3 ML INHALATION STA (15:01)
--- NOTE | 2018-07-11 15:19 | ED ---
General Adult HPI - General Stated complaint: KAMI Time Seen by Provider: 07/11/18 15:01 Source: patient, family, EMS, RN notes reviewed, old records reviewed Mode of arrival: EMS Limitations: no limitations - History of Present Illness Initial comments: 78-year-old female presents with severe respiratory distress. Patient was placed on CPAP by EMS prior to arrival. She had significant respiratory distress with hypoxia. She is normally on 2-3 L of home oxygen. She has prev ious tobacco history. Unknown if the patient has full diagnosis of COPD. History is limited secondary to severe respiratory distress. Denies chest pain. Denies fevers. States her symptoms have progressed over one week. - Related Data Home Medications Medication Instructions Recorded Confirmed Albuterol Inhaler [Ventolin Hfa 1 - 2 puff INHALATION RT-Q4H PRN 07/11/18 07/11/18 Inhaler] Loratadine [Claritin] 10 mg PO DAILY 07/11/18 07/11/18 Umeclidinium Brm/Vilanterol Tr 1 puff INHALATION RT-DAILY 07/11/18 07/11/18 [Anoro Ellipta 62.5-25 Mcg INH] Previous Rx's Medication Instructions Recorded Albuterol Nebulized [Ventolin 2.5 mg INHALATION RT-QID PRN 30 12/18/17 Nebulized] Days #1 box guaiFENesin [Mucinex] 600 mg PO Q12HR #60 tablet.er 12/18/17 Allergies Allergy/AdvReac Type Severity Reaction Status Date / Time No Known Allergies Allergy Verified 07/11/18 15:04 Review of Systems ROS Statement: Those systems with pertinent positive or pertinent negative responses have been documented in the HPI. ROS Other: All systems not noted in ROS Statement are negative. Past Medical History Past Medical History: Pneumonia Additional Past Medical History / Comment(s): cataracts(sx done), "bruises easily-thin fragile skin", lower dental bridge. History of Any Multi-Drug Resistant Organisms: None Reported Past Surgical History: Appendectomy, Tonsillectomy Additional Past Surgical History / Comment(s): Bilateral cataracts Past Anesthesia/Blood Transfusion Reactions: No Reported Reaction Past Psychological History: No Psychological Hx Reported Smoking Status: Former smoker Past Alcohol Use History: None Reported Past Drug Use History: None Reported - Past Family History Mother Family Medical History: Myocardial Infarction (CT) Additional Family Medical History / Comment(s): Mother from a ruptured brain aneurysm, history of a heart attack Father Family Medical History: Diabetes Mellitus Additional Family Medical History / Comment(s): "heart problems" Father from bladder cancer , General Exam Limitations: no limitations General appearance: alert, in distress Head exam: Present: atraumatic, normocephalic Eye exam: Present: normal appearance, PERRL ENT exam: Present: normal exam Neck exam: Present: normal inspection. Absent: tenderness, meningismus Respiratory exam: Present: respiratory distress, wheezes, accessory muscle use, decreased breath sounds (Decreased breath sounds on the left compared to the right, and expiratory wheezing, minimal air entry), prolonged expiratory Cardiovascular Exam: Present: normal rhythm, tachycardia GI/Abdominal exam: Present: soft. Absent: distended, tenderness, guarding Extremities exam: Present: normal inspection, normal capillary refill. Absent: pedal edema, calf tenderness Neurological exam: Present: alert, oriented X3. Absent: motor sensory deficit Psychiatric exam: Present: normal affect, normal mood Skin exam: Present: warm, dry, intact. Absent: diaphoretic Course Vital Signs 07/11/18 07/11/18 07/11/18 15:01 15:14 15:45 Pulse Rate 108 H 109 H 98 Respiratory 20 32 H Rate Blood Pressure 194/143 O2 Sat by Pulse 100 Oximetry EKG Findings - EKG Comments: EKG Findings:: EKG: Sinus tachycardia, right atrial enlargement, poor baseline secondary to respiratory distress and artifact. No ST segment elevation. Ventricular rate of 110, TX interval 172, QRS duration 88, QTC 484 Medical Decision Making - Medical Decision Making 78-year-old female presented with cough and dyspnea. Symptoms have been present for one week. She is in respiratory distress on CPAP by EMS. She was transitioned to BiPAP in the emergency department. X-ray negative for pneumothorax, no focal pneumonia, no pulmonary edema. She has normal CBC, normal CMP, troponin and BNP are negative. After approximately one hour on BiPAP she has significant improvement in respiratory status. She will be continued on IV steroids, nebulized albuterol and Atrovent. She will be admitted with pulmonology on consult. - Lab Data Result diagrams: 07/11/18 15:10 07/11/18 15:10 Lab Results 07/11/18 07/11/1807/11/19 Range/Units 15:10 15:10 15:10 WBC 9.2 (3.8-10.6) k/uL RBC 5.28 (3.80-5.40) m/uL Hgb 15.0 (11.4-16.0) gm/dL Hct 46.9 H (34.0-46.0) % MCV 88.8 (80.0-100.0) fL MCH 28.5 (25.0-35.0) pg MCHC 32.1 (31.0-37.0) g/dL RDW 14.0 (11.5-15.5) % Plt Count 254 (150-450) k/uL Neutrophils % 55 % Lymphocytes % 27 % Monocytes % 7 % Eosinophils % 7 % Basophils % 1 % Neutrophils # 5.0 (1.3-7.7) k/uL Lymphocytes # 2.5 (1.0-4.8) k/uL Monocytes # 0.6 (0-1.0) k/uL Eosinophils # 0.7 (0-0.7) k/uL Basophils # 0.1 (0-0.2) k/uL PT (9.0-12.0) sec INR (<1.2) APTT (22.0-30.0) sec Sodium 144 (137-145) mmol/L Potassium 3.7 (3.5-5.1) mmol/L Chloride 106 (98-107) mmol/L Carbon Dioxide 28 (22-30) mmol/L Anion Gap 10 mmol/L BUN 19 H (7-17) mg/dL Creatinine 0.56 (0.52-1.04) mg/dL Est GFR (CKD-EPI)AfAm >90 (>60 ml/min/1.73 sqM) Est GFR (CKD-EPI)NonAf >90 (>60 ml/min/1.73 sqM) Glucose 115 H (74-99) mg/dL Calcium 10.1 (8.4-10.2) mg/dL Magnesium 1.8 (1.6-2.3) mg/dL Total Bilirubin 0.9 (0.2-1.3) mg/dL AST 24 (14-36) U/L ALT 29 (9-52) U/L Alkaline Phosphatase 75 (38-126) U/L Troponin I (0.000-0.034) ng/mL NT-Pro-B Natriuret Pep 159 pg/mL Total Protein 8.0 (6.3-8.2) g/dL Albumin 4.8 (3.5-5.0) g/dL 07/11/18 07/11/18 Range/Units 15:10 15:10 WBC (3.8-10.6) k/uL RBC (3.80-5.40) m/uL Hgb (11.4-16.0) gm/dL Hct (34.0-46.0) % MCV (80.0-100.0) fL MCH (25.0-35.0) pg MCHC (31.0-37.0) g/dL RDW (11.5-15.5) % Plt Count (150-450) k/uL Neutrophils % % Lymphocytes % % Monocytes % % Eosinophils % % Basophils % % Neutrophils # (1.3-7.7) k/uL Lymphocytes # (1.0-4.8) k/uL Monocytes # (0-1.0) k/uL Eosinophils # (0-0.7) k/uL Basophils # (0-0.2) k/uL PT 10.3 (9.0-12.0) sec INR 1.0 (<1.2) APTT 22.6 (22.0-30.0) sec Sodium (137-145) mmol/L Potassium (3.5-5.1) mmol/L Chloride (98-107) mmol/L Carbon Dioxide (22-30) mmol/L Anion Gap mmol/L BUN (7-17) mg/dL Creatinine (0.52-1.04) mg/dL Est GFR (CKD-EPI)AfAm (>60 ml/min/1.73 sqM) Est GFR (CKD-EPI)NonAf (>60 ml/min/1.73 sqM) Glucose (74-99) mg/dL Calcium (8.4-10.2) mg/dL Magnesium (1.6-2.3) mg/dL Total Bilirubin (0.2-1.3) mg/dL AST (14-36) U/L ALT (9-52) U/L Alkaline Phosphatase (38-126) U/L Troponin I <0.012 (0.000-0.034) ng/mL NT-Pro-B Natriuret Pep pg/mL Total Protein (6.3-8.2) g/dL Albumin (3.5-5.0) g/dL Critical Care Time Critical Care Time: Yes Total Critical Care Time: 35 Disposition Clinical Impression: Acute exacerbation of chronic obstructive airways disease Disposition: ADMITTED IP TO THIS [facility] Condition: Stable Is patient prescribed a controlled substance at d/c from ED?: No Referrals: Nora Linda MD [Primary Care Provider] - 1-2 days Decision to Admit Reason: Admit from EC Decision Date: 07/11/18 Decision Time: 16:13
[2018-07-11 15:22] LABS: Basophils # (A) 0.1 k/uL (0-0.2); Basophils % (A) 1 %; Eosinophils # (A) 0.7 k/uL (0-0.7); Eosinophils % (A) 7 %; HCT 46.9 % (34.0-46.0); Lymphocytes # (A) 2.5 k/uL (1.0-4.8); Lymphocytes % (A) 27 %; MCH 28.5 pg (25.0-35.0); MCHC 32.1 g/dL (31.0-37.0); MCV 88.8 fL (80.0-100.0); Mean Platelet Volume 7.1; Monocytes # (A) 0.6 k/uL (0-1.0); Monocytes % (A) 7 %; Neutrophils % (A) 55 %; Platelet Count 254 k/uL (150-450); RBC 5.28 m/uL (3.80-5.40); WBC 9.2 k/uL (3.8-10.6)
--- NOTE | 2018-07-11 15:23 | XR ---
EXAMINATION TYPE: XR chest 1V portable DATE OF EXAM: 07/11/2018 COMPARISON: Prior chest x-ray 12/14/2017 HISTORY: Difficulty breathing, dyspnea TECHNIQUE: Single frontal view of the chest is obtained. FINDINGS: The heart is small. Patient is rotated. No evident pneumothorax or pleural effusion. Promi nent lung lines suggest underlying COPD. Pulmonary vascularity and feli not significantly changed. Th ere are overlying cardiac leads. No evident airspace disease. The aorta is dense. IMPRESSION: No acute process.
[2018-07-11 15:32] LABS: Partial Thromboplastin Time 22.6 sec (22.0-30.0); Prothrombin Time 10.3 sec (9.0-12.0)
[2018-07-11 15:35] LABS: ALT 29 U/L (9-52); AST 24 U/L (14-36); Albumin 4.8 g/dL (3.5-5.0); Alkaline Phosphatase 75 U/L (38-126); Anion Gap 10 mmol/L; Blood Urea Nitrogen 19 mg/dL (7-17); Calcium 10.1 mg/dL (8.4-10.2); Carbon Dioxide 28 mmol/L (22-30); Chloride 106 mmol/L (98-107); Glucose 115 mg/dL (74-99); Magnesium 1.8 mg/dL (1.6-2.3); Potassium 3.7 mmol/L (3.5-5.1); Sodium 144 mmol/L (137-145); Total Bilirubin 0.9 mg/dL (0.2-1.3)
[2018-07-11] MEDS ORDERED: LORazepam 2 MG/ML INJ IV STA (15:40)
[2018-07-11] MEDS: MAGNESIUM SULFATE-D5W PMX 1 GM in DEXTROSE/WATER 1 100ML.BAG IVPB SCH ×2 (16:00→16:58)
[2018-07-11] MEDS ORDERED: MAGNESIUM SULFATE-D5W PMX 1 GM in DEXTROSE/WATER 1 100ML.BAG IVPB SCH (16:00)
[2018-07-11] MEDS ORDERED: IPRATROPIUM-ALBUTEROL 3 ML NEB INHALATION PRN (16:10)
[2018-07-11] MEDS ORDERED: AZITHROMYCIN 500 MG in SODIUM CHLORIDE 0.9% 250 ML IVPB STA (16:11)
[2018-07-11] MEDS ORDERED: ALBUTEROL NEBULIZED 2.5 MG/3 ML INHALATION PRN (16:12)
[2018-07-11] MEDS ORDERED: MORPHINE SULFATE 4 MG/ML SYRINGE IVP STA (16:35)
[2018-07-11] MEDS ORDERED: ALPRAZolam 0.25 MG TAB PO PRN (17:48)
[2018-07-11] MEDS: methylPREDNISolone SOD SUCCI 125 MG/2 ML VIAL IV SCH ×2 (18:35→23:24)
[2018-07-11 21:07] LABS: Glucose,Whole Blood 145 mg/dL (75-99)
[2018-07-11] MEDS: BUDESONIDE 1 MG/2 ML NEBU INHALATION SCH (21:28)
[2018-07-11] MEDS: FORMOTEROL FUMARATE 20 MCG/2 ML NEBU INHALATION SCH (21:28)
[2018-07-11] MEDS: IPRATROPIUM-ALBUTEROL 3 ML NEB INHALATION SCH (21:28)
--- NOTE | 2018-07-11 22:04 | HP ---
HISTORY AND PHYSICAL DATE OF SERVICE: 07/11/2018. CHIEF COMPLAINT: Shortness of breath and COPD. HISTORY OF PRESENT ILLNESS: This 78-year-old woman with a past medical history of pneumonia, history of COPD, appendectomy, being followed by Dr. Linda in the outpatient setting, is complaining of shortness of breath. The patient apparently is on 2 to 3 liters of home oxygen. Due to lack of improvement EMS was called. Patient was found to be severely hypoxic. Patient received CPAP and subsequently patient is on BiPAP at this time. Currently on BiPAP the oxygen is improved. Oxygenation and blood pressure are being closely monitored. There is no history of fevers or rigors. No history of headache, loss of consciousness or seizures. PAST MEDICAL HISTORY: History of pneumonia, history of COPD, appendectomy, tonsillectomy. MEDICATIONS: Prior to admission include: 1. Mucinex 600 mg p.o. b.i.d. 2. Ellipta 1 puff daily. 3. Claritin 10 mg. 4. Ventolin 2.5 q.i.d. p.r.n. 5. Ventolin HFA 1 to 2 puffs q.i.d. p.r.n. ALLERGIES: None. FAMILY HISTORY: History of myocardial infarction and ruptured aneurysm. SOCIAL HISTORY: History of alcohol. Previous history of smoking. REVIEW OF SYSTEMS: ENT: Diminished hearing or vision. CARDIOVASCULAR: No angina or palpitations. RESPIRATORY: As mentioned earlier. GI: No nausea. : No dysuria. NERVOUS SYSTEM: As mentioned earlier. ALLERGY, IMMUNOLOGY: Unremarkable. MUSCULOSKELETAL: As mentioned. DERMATOLOGY: Unremarkable. ENDOCRINE: No history of diabetes or hypothyroid. CONSTITUTIONAL: As mentioned earlier. PHYSICAL EXAMINATION: Alert oriented x3. Pulse is 110, blood pressure 141/60, respiration 20, temperature is normal. Pulse ox is 100 percent on BiPAP. BiPAP settings are noted. HEENT: Conjunctivae normal. Oral mucosa moist. NECK: Jugular venous distention present. No lymph node enlargement. Axillary muscles of respiration are acting. Emaciated. Makim as stated. CARDIOVASCULAR: S1 and S2 muffled. No S3 or S4. LUNGS: Breath sounds diminished in the bases. Respiratory effort markedly increased. Bilateral scattered rhonchi and expiratory wheezing and crackles. ABDOMEN: Soft, scaphoid, nontender. No mass. EXTREMITIES: Legs no edema. NERVOUS SYSTEM: Diffusely weak. No focal deficits noted. SKIN: No ulcer seen. JOINTS: No active deformities or arthropathy. LEGS: No edema, no swelling. LAB STUDIES: WBC 10.2 , hemoglobin 15. Chest x-ray personally reviewed by me. EKG shows sinus tachycardia, no specific changes. ASSESSMENT: 1. Chronic obstructive pulmonary disease acute exacerbation with acute tracheobronchitis with acute hypoxic respiratory failure. 2. History of previous COPD. 3. History of nicotine dependence. 4. Increased random blood sugar. 5. History of tonsillectomy. 6. History of appendectomy. 7. History of cataracts. 8. History of pneumonia. 9. Severe protein calorie malnutrition with BMI of 18.8. RECOMMENDATIONS AND DISCUSSION: This 77-year-old woman who presented with multiple complex medical issues, we will monitor the patient closely, continue the current management and treatment. Will optimize the bronchodilator treatment. Otherwise DVT prophylaxis. Empiric antibiotics. Pulmonary consultation. IV steroids. Monitor blood sugars closely. Resume the home medications. Prognosis guarded because of multiple complex medical issues. Further recommendations to follow. Follow up with Dr. Linda. AMANDA / YURI: [id number] / KANIKA
[2018-07-11] MEDS: INSULIN ASPART (NovoLOG) 100 UNIT/ML VIAL SQ SCH (23:25)
[2018-07-11] MEDS: HEPARIN SODIUM,PORCINE 5,000 UNIT/ML 1 ML VIAL SQ SCH (23:25)
[2018-07-11] MEDS: guaiFENesin 600 MG TABLET.ER PO SCH (23:25)
[2018-07-12 06:11] LABS: Glucose,Whole Blood 133 mg/dL (75-99)
[2018-07-12] MEDS: methylPREDNISolone SOD SUCCI 125 MG/2 ML VIAL IV SCH ×4 (06:47→22:57)
[2018-07-12] MEDS: PANTOPRAZOLE 40 MG TABLET PO SCH (06:47)
[2018-07-12] MEDS: INSULIN ASPART (NovoLOG) 100 UNIT/ML VIAL SQ SCH ×5 (06:49→21:28)
[2018-07-12 07:32] LABS: Basophils % (A) 0 %; Eosinophils % (A) 0 %; HCT 37.1 % (34.0-46.0); HGB 12.2 gm/dL (11.4-16.0); Lymphocytes # (A) 0.7 k/uL (1.0-4.8); Lymphocytes % (A) 13 %; MCH 29.8 pg (25.0-35.0); MCHC 32.9 g/dL (31.0-37.0); MCV 90.5 fL (80.0-100.0); Mean Platelet Volume 6.6; Monocytes # (A) 0.1 k/uL (0-1.0); Monocytes % (A) 2 %; Neutrophils # (A) 4.4 k/uL (1.3-7.7); Neutrophils % (A) 84 %; Platelet Count 180 k/uL (150-450); RDW 13.7 % (11.5-15.5); WBC 5.2 k/uL (3.8-10.6)
[2018-07-12 07:53] LABS: Anion Gap 6 mmol/L; Blood Urea Nitrogen 20 mg/dL (7-17); Calcium 9.3 mg/dL (8.4-10.2); Carbon Dioxide 27 mmol/L (22-30); Chloride 110 mmol/L (98-107); Glucose 142 mg/dL (74-99); Potassium 4.2 mmol/L (3.5-5.1); Sodium 143 mmol/L (137-145)
[2018-07-12] MEDS: HEPARIN SODIUM,PORCINE 5,000 UNIT/ML 1 ML VIAL SQ SCH ×2 (08:22→21:28)
[2018-07-12] MEDS: LORATADINE 10 MG TAB PO SCH (08:22)
[2018-07-12] MEDS: guaiFENesin 600 MG TABLET.ER PO SCH ×2 (08:22→21:28)
[2018-07-12] MEDS: FORMOTEROL FUMARATE 20 MCG/2 ML NEBU INHALATION SCH ×2 (08:59→20:50)
[2018-07-12] MEDS: BUDESONIDE 1 MG/2 ML NEBU INHALATION SCH ×2 (08:59→20:49)
[2018-07-12] MEDS: IPRATROPIUM-ALBUTEROL 3 ML NEB INHALATION SCH ×4 (08:59→20:49)
[2018-07-12 11:41] LABS: Glucose,Whole Blood 142 mg/dL (75-99)
[2018-07-12] MEDS: PROMETHAZ-COD 6.25-10 MG/5 ML 5 ML CUP PO PRN ×3 (13:09→22:58)
[2018-07-12 16:44] LABS: Glucose,Whole Blood 136 mg/dL (75-99)
--- NOTE | 2018-07-12 18:10 | P.CNPUL ---
<Darlene Underwood - Last Filed: 07/12/18 17:50> History of Present Illness Consult date: 07/12/18 Requesting physician: Andrew Spring Reason for consult: dyspnea, COPD Chief complaint: Shortness of breath History of present illness: This is a very pleasant 78-year-old female patient who has a history of severe oxygen dependent chronic obstructive pulmonary disease, chronic tobacco dependence, severe protein calorie malnutrition. She follows in our office for the same. Her FEV1 value is 49% of predicted. She is on Anoro and albuterol in the outpatient setting. She was last seen in 06/28/2018. She was doing fairly well at that time. Approximately 4 days ago the patient states her had fallen outside of the house he was unable to get himself up. She tried to help him and had been without her oxygen while she was outside. She was unable to get him back up. She got quite dyspneic and had to go back in the house and relax and get her oxygen back on and she was able to call her son who came over and helped her who was not injured. Since that time however she is still having trouble with significant shortness of breath and dyspnea on exertion presented to the emergency room yesterday for the same. She was quite hypoxic and required CPAP for some time. Chest x-ray showed no acute process. She is seen today in consultation on the selective care unit. She is currently resting comfortably in bed. Awake and alert. She is dyspneic with conversation. Dyspneic with minimal activity. Maintain O2 saturations in the 90s on 3 L/m per nasal cannula. Afebrile. Blood and ultimately stable. White count 5.2. Hemoglobin 12.2. Creatinine 0.49. She has been initiated on DuoNeb inhalations, Pulmicort and Perforomist inhalations, IV Solu-Medrol. Antibiotics in the form of ceftriaxone. She continues with a dry nonproductive cough. Review of Systems REVIEW OF SYSTEMS: CONSTITUTIONAL: Positive for weight loss. EYES: Denies change in vision. EARS, NOSE, MOUTH, THROAT: Denies headaches, denies sore throat. CARDIOVASCULAR: Denies chest pain, palpitations or syncopal episodes. RESPIRATORY: Positive for shortness of breath, cough, congestion no hemoptysis. GASTROINTESTINAL: Denies change in appetite, denies abdominal pain GENITOURINARY: Denies hematuria, denies infections. MUSKULOSKELETAL: Denies pain, denies swelling. INTEGUMENTARY: Denies rash, denies eczema. NEUROLOGICAL: Denies recent memory loss, no recent seizure activity. PSYCHIATRIC: Positive for anxiety, denies depression. HEMATOLOGIC/LYMPHATIC: Denies anemia, denies enlarged lymph nodes. Past Medical History Past Medical History: COPD, Pneumonia, Respiratory Disorder Additional Past Medical History / Comment(s): cataracts(sx done), "bruises easily-thin fragile skin", lower dental bridge. History of Any Multi-Drug Resistant Organisms: None Reported Past Surgical History: Appendectomy, Tonsillectomy Additional Past Surgical History / Comment(s): Bilateral cataracts Past Anesthesia/Blood Transfusion Reactions: No Reported Reaction Past Psychological History: No Psychological Hx Reported Smoking Status: Former smoker Past Alcohol Use History: None Reported Additional Past Alcohol Use History / Comment(s): started smoking age 16 smokes 1 ppd Past Drug Use History: None Reported - Past Family History Mother Family Medical History: Myocardial Infarction (MS) Additional Family Medical History / Comment(s): Mother from a ruptured brain aneurysm, history of a heart attack Father Family Medical History: Diabetes Mellitus Additional Family Medical History / Comment(s): "heart problems" Father from bladder cancer , Medications and Allergies Home Medications Medication Instructions Recorded Confirmed Type Albuterol Nebulized [Ventolin 2.5 mg INHALATION RT-QID PRN 30 12/18/17 07/11/18 Rx Nebulized] Days #1 box guaiFENesin [Mucinex] 600 mg PO Q12HR #60 tablet.er 12/18/17 07/11/18 Rx Albuterol Inhaler [Ventolin Hfa 1 - 2 puff INHALATION RT-Q4H PRN 07/11/18 07/11/18 History Inhaler] Loratadine [Claritin] 10 mg PO DAILY 07/11/18 07/11/18 History Umeclidinium Brm/Vilanterol Tr 1 puff INHALATION RT-DAILY 07/11/18 07/11/18 History [Anoro Ellipta 62.5-25 Mcg INH] Allergies Allergy/AdvReac Type Severity Reaction Status Date / Time No Known Allergies Allergy Verified 07/11/18 15:04 Physical Exam Vitals: Vital Signs Temp Pulse Pulse Resp BP BP Pulse Ox 07/12/18 16:52 88 07/12/18 16:38 88 20 97 07/12/18 16:00 92 22 07/12/18 15:16 98.8 F 92 22 128/60 96 07/12/18 12:01 92 07/12/18 12:00 103 H 27 H 07/12/18 11:59 103 H 27 H 154/71 94 L 07/12/18 11:49 90 07/12/18 09:19 89 07/12/18 09:10 88 07/12/18 09:09 88 07/12/18 08:59 88 07/12/18 07:42 70 26 H 07/12/18 07:41 100 07/12/18 07:32 98.1 F 70 26 H 151/73 100 07/12/18 04:00 98.0 F 74 18 146/84 100 07/12/18 00:03 97.9 F 91 30 H 145/87 100 07/11/18 21:56 100 31 H 07/11/18 21:42 101 H 27 H 07/11/18 21:28 100 27 H 07/11/18 21:03 97.9 F 91 30 H 145/87 100 07/11/18 20:26 98.1 F 78 27 H 142/81 100 07/11/18 19:30 98.0 F 79 24 138/86 99 07/11/18 18:30 78 19 107/70 100 07/11/18 18:00 87 18 99/65 99 Intake and Output 07/12/18 07/12/18 07/12/18 06:59 14:59 22:59 Intake Total 200 Output Total 450 Balance -450 200 Intake: Oral 200 Output: Urine 450 Other: Voiding Method Bedpan Diaper # Voids 1 Weight 52.8 kg 52.8 kg GENERAL EXAM: Pleasant frail cachectic 78-year-old female patient. Mild respiratory distress. On 3 L nasal cannula. HEAD: Normocephalic. EYES: Normal reaction of pupils, equal size. NOSE: Clear with pink turbinates. THROAT: No erythema or exudates. NECK: No masses, no JVD. CHEST: No chest wall deformity. LUNGS: Equal air entry with bilateral end expiratory wheeze, diminished. CVS: S1 and S2 normal with no audible murmur, regular rhythm. ABDOMEN: No hepatosplenomegaly, normal bowel sounds, no guarding or rigidity. SPINE: Kyphoscoliosis SKIN: No rashes CENTRAL NERVOUS SYSTEM: No focal deficits, tone is normal in all 4 extremities. EXTREMITIES: There is no peripheral edema. No clubbing, no cyanosis. Peripheral pulses are intact. Results - Laboratory Findings CBC and BMP: 07/12/18 06:51 07/12/18 06:51 PT/INR, D-dimer PT 10.3 sec (9.0-12.0) 07/11/18 15:10 INR 1.0 (<1.2) 07/11/18 15:10 Abnormal lab findings: Abnormal Labs 07/11/18 07/11/18 07/11/18 15:10 15:10 21:02 Hct 46.9 H Lymphocytes # Chloride BUN 19 H Creatinine Glucose 115 H POC Glucose (mg/dL) 145 H 07/12/18 07/12/18 07/12/18 06:10 06:51 06:51 Hct Lymphocytes # 0.7 L Chloride 110 H BUN 20 H Creatinine 0.49 L Glucose 142 H POC Glucose (mg/dL) 133 H 07/12/18 07/12/18 11:34 16:40 Hct Lymphocytes # Chloride BUN Creatinine Glucose POC Glucose (mg/dL) 142 H 136 H - Diagnostic Findings Chest x-ray: image reviewed (COPD, no acute process) Assessment and Plan Assessment: Impression: #1 Acute on chronic hypoxemic respiratory failure secondary to an acute exacerbation of chronic obstructive pulmonary disease. #2 Oxygen dependent chronic obstructive pulmonary disease with an FEV1 value of 49% of predicted. #3 Chronic and ongoing tobacco dependence of greater than 50 years. #4 Severe anorexia/cachexia syndrome #5 Poor overall functional performance based on the above-mentioned multiple comorbidities. Plan: The patient was seen and evaluated by Dr. Granados. Chest x-ray and labs were reviewed. We will continue with the current treatment plan including bronchodilators, steroids, antibiotics, promethazine with codeine. She states she has not smoked since her previous admission. We will continue to follow and make further recommendations based on her clinical status. I, the cosigning physician, performed a history & physical examination of the patient. Lungs sounds bilateral end expiratory wheeze, diminished. Maintaining good O2 saturations in the 90s on 3 L/m. I discussed the assessment and plan of care with my nurse practitioner, Darlene Underwood. I attest to the above consultation as dictated by her. Time with Patient: Greater than 30 <Treva Granados - Last Filed: 07/12/18 18:17> Physical Exam Vitals: Vital Signs Temp Pulse Pulse Resp BP BP Pulse Ox 07/12/18 16:52 88 07/12/18 16:38 88 20 97 07/12/18 16:00 92 22 07/12/18 15:16 98.8 F 92 22 128/60 96 07/12/18 12:01 92 07/12/18 12:00 103 H 27 H 07/12/18 11:59 103 H 27 H 154/71 94 L 07/12/18 11:49 90 07/12/18 09:19 89 07/12/18 09:10 88 07/12/18 09:09 88 07/12/18 08:59 88 07/12/18 07:42 70 26 H 07/12/18 07:41 100 07/12/18 07:32 98.1 F 70 26 H 151/73 100 07/12/18 04:00 98.0 F 74 18 146/84 100 07/12/18 00:03 97.9 F 91 30 H 145/87 100 07/11/18 21:56 100 31 H 07/11/18 21:42 101 H 27 H 07/11/18 21:28 100 27 H 07/11/18 21:03 97.9 F 91 30 H 145/87 100 07/11/18 20:26 98.1 F 78 27 H 142/81 100 07/11/18 19:30 98.0 F 79 24 138/86 99 07/11/18 18:30 78 19 107/70 100 Intake and Output 07/12/18 07/12/18 07/12/18 06:59 14:59 22:59 Intake Total 200 Output Total 450 Balance -450 200 Intake: Oral 200 Output: Urine 450 Other: Voiding Method Bedpan Diaper # Voids 1 Weight 52.8 kg 52.8 kg Results - Laboratory Findings CBC and BMP: 07/12/18 06:51 07/12/18 06:51 PT/INR, D-dimer PT 10.3 sec (9.0-12.0) 07/11/18 15:10 INR 1.0 (<1.2) 07/11/18 15:10 Abnormal lab findings: Abnormal Labs 07/11/18 07/11/18 07/11/18 15:10 15:10 21:02 Hct 46.9 H Lymphocytes # Chloride BUN 19 H Creatinine Glucose 115 H POC Glucose (mg/dL) 145 H 07/12/18 07/12/18 07/12/18 06:10 06:51 06:51 Hct Lymphocytes # 0.7 L Chloride 110 H BUN 20 H Creatinine 0.49 L Glucose 142 H POC Glucose (mg/dL) 133 H 07/12/18 07/12/18 11:34 16:40 Hct Lymphocytes # Chloride BUN Creatinine Glucose POC Glucose (mg/dL) 142 H 136 H Assessment and Plan Plan: This is a joint evaluation that was done along with a nurse practitioner. The patient is an for an acute COPD exacerbation. Agree on the current treatment plan. We'll continue to follow.
[2018-07-12 20:26] LABS: Glucose,Whole Blood 158 mg/dL (75-99)
[2018-07-13] MEDS: PROMETHAZ-COD 6.25-10 MG/5 ML 5 ML CUP PO PRN ×5 (05:52→23:21)
[2018-07-13 06:10] LABS: Glucose,Whole Blood 129 mg/dL (75-99)
[2018-07-13] MEDS: INSULIN ASPART (NovoLOG) 100 UNIT/ML VIAL SQ SCH ×4 (06:11→21:26)
[2018-07-13] MEDS: methylPREDNISolone SOD SUCCI 125 MG/2 ML VIAL IV SCH ×4 (06:29→23:21)
[2018-07-13] MEDS: PANTOPRAZOLE 40 MG TABLET PO SCH (06:29)
[2018-07-13 06:41] LABS: Basophils % (A) 0 %; Eosinophils % (A) 0 %; HCT 40.5 % (34.0-46.0); Lymphocytes # (A) 0.9 k/uL (1.0-4.8); Lymphocytes % (A) 6 %; MCH 28.7 pg (25.0-35.0); MCHC 32.2 g/dL (31.0-37.0); Mean Platelet Volume 7.4; Monocytes # (A) 0.4 k/uL (0-1.0); Monocytes % (A) 3 %; Neutrophils # (A) 14.4 k/uL (1.3-7.7); Neutrophils % (A) 91 %; Platelet Count 215 k/uL (150-450); RBC 4.55 m/uL (3.80-5.40); WBC 15.8 k/uL (3.8-10.6)
[2018-07-13 06:53] LABS: Anion Gap 10 mmol/L; Blood Urea Nitrogen 27 mg/dL (7-17); Calcium 9.7 mg/dL (8.4-10.2); Carbon Dioxide 22 mmol/L (22-30); Chloride 107 mmol/L (98-107); Glucose 137 mg/dL (74-99); Potassium 4.2 mmol/L (3.5-5.1); Sodium 139 mmol/L (137-145)
[2018-07-13] MEDS: IPRATROPIUM-ALBUTEROL 3 ML NEB INHALATION SCH ×4 (07:37→20:56)
[2018-07-13] MEDS: BUDESONIDE 1 MG/2 ML NEBU INHALATION SCH (07:37)
[2018-07-13] MEDS: FORMOTEROL FUMARATE 20 MCG/2 ML NEBU INHALATION SCH (07:37)
[2018-07-13] MEDS: guaiFENesin 600 MG TABLET.ER PO SCH ×2 (09:44→19:32)
[2018-07-13] MEDS: LORATADINE 10 MG TAB PO SCH (09:44)
[2018-07-13] MEDS: HEPARIN SODIUM,PORCINE 5,000 UNIT/ML 1 ML VIAL SQ SCH ×2 (09:46→19:32)
[2018-07-13 11:49] LABS: Glucose,Whole Blood 141 mg/dL (75-99)
--- NOTE | 2018-07-13 12:57 | P.PN ---
Subjective Progress Note Date: 07/12/18 Principal diagnosis: Acute on chronic hypoxemic respiratory failure Acute exacerbation COPD 78-year-old female patient who has a history of severe oxygen dependent chronic obstructive pulmonary disease, chronic tobacco dependence, severe protein calorie malnutrition. She follows in our office for the same. Her FEV1 value is 49% of predicted. She is on Anoro and albuterol in the outpatient setting. She was last seen in 06/28/2018. She was doing fairly well at that time. Approximately 4 days ago the patient states her had fallen outside of the house he was unable to get himself up. She tried to help him and had been without her oxygen while she was outside. She was unable to get him back up. She got quite dyspneic and had to go back in the house and relax and get her oxygen back on and she was able to call her son who came over and helped her who was not injured. Since that time however she is still having trouble with significant shortness of breath and dyspnea on exertion presented to the emergency room yesterday for the same. She was quite hypoxic and required CPAP for some time. Chest x-ray showed no acute process. She is seen today in consultation on the selective care unit. She is currently resting comfortably in bed. Awake and alert. She is dyspneic with conversation. Dyspneic with minimal activity. Maintain O2 saturations in the 90s on 3 L/m per nasal cannula. Afebrile. Blood and ultimately stable. White count 5.2. Hemoglobin 12.2. Creatinine 0.49. She has been initiated on DuoNeb inhalations, Pulmicort and Perforomist inhalations, IV Solu-Medrol. Antibiotics in the form of ceftriaxone. She continues with a dry nonproductive cough. Objective - Vital Signs Vital signs: Vital Signs Temp 98.1 F 07/12/18 07:32 Pulse 92 07/12/18 12:01 Resp 27 H 07/12/18 12:00 BP 154/71 07/12/18 11:59 Pulse Ox 94 L 07/12/18 11:59 Intake & Output 07/11/18 07/12/18 07/12/18 18:59 06:59 18:59 Intake Total 100 Output Total 450 Balance -450 100 Weight 52.889 kg 52.8 kg Intake: Oral 100 Output: Urine 450 Other: Voiding Method Bedpan Diaper # Voids 1 - Exam GENERAL EXAM: Pleasant frail cachectic 78-year-old female patient. Mild respir atory distress. On 3 L nasal cannula. HEAD: Normocephalic. EYES: Normal reaction of pupils, equal size. NOSE: Clear with pink turbinates. THROAT: No erythema or exudates. NECK: No masses, no JVD. CHEST: No chest wall deformity. LUNGS: Equal air entry with bilateral end expiratory wheeze, diminished. CVS: S1 and S2 normal with no audible murmur, regular rhythm. ABDOMEN: No hepatosplenomegaly, normal bowel sounds, no guarding or rigidity. SPINE: Kyphoscoliosis SKIN: No rashes - Labs CBC & Chem 7: 07/13/18 06:19 07/13/18 06:19 Labs: Abnormal Lab Results - Last 24 Hours (Table) 07/11/18 07/11/18 07/11/18 Range/Units 15:10 15:10 21:02 Hct 46.9 H (34.0-46.0) % Lymphocytes # (1.0-4.8) k/uL Chloride (98-107) mmol/L BUN 19 H (7-17) mg/dL Creatinine (0.52-1.04) mg/dL Glucose 115 H (74-99) mg/dL POC Glucose (mg/dL) 145 H (75-99) mg/dL 07/12/18 07/12/18 07/12/18 Range/Units 06:10 06:51 06:51 Hct (34.0-46.0) % Lymphocytes # 0.7 L (1.0-4.8) k/uL Chloride 110 H (98-107) mmol/L BUN 20 H (7-17) mg/dL Creatinine 0.49 L (0.52-1.04) mg/dL Glucose 142 H (74-99) mg/dL POC Glucose (mg/dL) 133 H (75-99) mg/dL 07/12/18 Range/Units 11:34 Hct (34.0-46.0) % Lymphocytes # (1.0-4.8) k/uL Chloride (98-107) mmol/L BUN (7-17) mg/dL Creatinine (0.52-1.04) mg/dL Glucose (74-99) mg/dL POC Glucose (mg/dL) 142 H (75-99) mg/dL Assessment and Plan Assessment: 1. Acute on chronic hypoxemic respiratory failure secondary to COPD exacerbatio n - Treat underlying etiology; continue with O2 per protocol keeping SpO2 greater than 89% 2. Acute exacerbation COPD with acute tracheobronchitis - IV Solu-Medrol 60 mg every 6 hours - Bronchodilator and steroid nebulizer treatments - IV antibiotics in form of ceftriaxone 1 g daily - Symptomatic treatment with Phenergan with codeine 5 male's every 4 hours when necessary 3. Severe anorexia/cachexia/ severe protein calorie malnutrition - Dietary consult in place; recommendations are pending 4. Chronic tobacco abuse; counseling done on smoking cessation 5. DVT prophylaxis; subcu heparin CODE STATUS; full code
--- NOTE | 2018-07-13 14:32 | P.PN ---
Subjective Progress Note Date: 07/13/18 Principal diagnosis: Acute exacerbation of severe oxygen dependent chronic obstructive pulmonary disease with ongoing tobacco dependence This is a very pleasant 78-year-old female patient who has a history of severe oxygen dependent chronic obstructive pulmonary disease, chronic tobacco dependence, severe protein calorie malnutrition. She follows in our office for the same. Her FEV1 value is 49% of predicted. She is on Anoro and albuterol in the outpatient setting. She was last seen in 06/28/2018. She was doing fairly well at that time. Approximately 4 days ago the patient states her had fallen outside of the house he was unable to get himself up. She tried to help him and had been without her oxygen while she was outside. She was unable to get him back up. She got quite dyspneic and had to go back in the house and relax and get her oxygen back on and she was able to call her son who came over and helped her who was not injured. Since that time however she is still having trouble with significant shortness of breath and dyspnea on exerti on presented to the emergency room yesterday for the same. She was quite hypoxic and required CPAP for some time. Chest x-ray showed no acute process. She is seen today in consultation on the selective care unit. She is currently resting comfortably in bed. Awake and alert. She is dyspneic with conversation. Dyspneic with minimal activity. Maintain O2 saturations in the 90s on 3 L/m per nasal cannula. Afebrile. Blood and ultimately stable. White count 5.2. Hemoglobin 12.2. Creatinine 0.49. She has been initiated on DuoNeb inhalations, Pulmicort and Perforomist inhalations, IV Solu-Medrol. Antibiotics in the form of ceftriaxone. She continues with a dry nonproductive cough. The patient was seen today 07/13/2018 in follow-up on the selective care unit. She is currently sitting up in a chair at the bedside. Awake and alert. She still remains quite dyspneic on conversation and minimal exertion. Still not back to her baseline. Still somewhat bronchospastic and wheezy. She is maintaining O2 saturations in the 90s on 3 L/m per nasal cannula. She's afebrile. Hemodynamically stable. White count 15.8. Hemoglobin 13.0. Creatinine 0.58. She remains on DuoNeb inhalations, IV Solu-Medrol, ceftriaxone. She is also on Mucinex and promethazine. Objective - Vital Signs Vital signs: Vital Signs Temp 98.1 F 07/13/18 09:25 Pulse 80 07/13/18 11:56 Resp 22 07/13/18 09:25 BP 121/65 07/13/18 09:25 Pulse Ox 98 07/13/18 09:25 Intake & Output 07/12/18 07/13/18 07/13/18 18:59 06:59 18:59 Intake Total 350 1310 240 Balance 350 1310 240 Weight 52.8 kg 27.5 kg Intake: Intake, IV Titration 500 Amount cefTRIAXone 1 gm In 500 Sodium Chloride 0.9% 50 ml @ 100 mls/hr IVPB Q24HR [facility] Rx#:[id number] Oral 350 810 240 Other: Voiding Method Bedside Commode Bedside Commode Diaper Diaper # Voids 1 1 1 # Bowel Movements 0 - Exam GENERAL EXAM: Pleasant, frail, cachectic 78-year-old female patient. Mild respiratory distress. On 3 L nasal cannula. HEAD: Normocephalic. EYES: Normal reaction of pupils, equal size. NOSE: Clear with pink turbinates. THROAT: No erythema or exudates. NECK: No masses, no JVD. CHEST: No chest wall deformity. LUNGS: Equal air entry with bilateral end expiratory wheeze, diminished. CVS: S1 and S2 normal with no audible murmur, regular rhythm. ABDOMEN: No hepatosplenomegaly, normal bowel sounds, no guarding or rigidity. SPINE: Kyphoscoliosis SKIN: No rashes CENTRAL NERVOUS SYSTEM: No focal deficits, tone is normal in all 4 extremities. EXTREMITIES: There is no peripheral edema. No clubbing, no cyanosis. Peripheral pulses are intact. - Labs CBC & Chem 7: 07/13/18 06:19 07/13/18 06:19 Labs: Abnormal Lab Results - Last 24 Hours (Table) 07/12/18 07/12/18 07/13/18 Range/Units 16:40 20:24 06:09 WBC (3.8-10.6) k/uL Neutrophils # (1.3-7.7) k/uL Lymphocytes # (1.0-4.8) k/uL BUN (7-17) mg/dL Glucose (74-99) mg/dL POC Glucose (mg/dL) 136 H 158 H 129 H (75-99) mg/dL 07/13/18 07/13/18 07/13/18 Range/Units 06:19 06:19 11:47 WBC 15.8 H (3.8-10.6) k/uL Neutrophils # 14.4 H (1.3-7.7) k/uL Lymphocytes # 0.9 L (1.0-4.8) k/uL BUN 27 H (7-17) mg/dL Glucose 137 H (74-99) mg/dL POC Glucose (mg/dL) 141 H (75-99) mg/dL Assessment and Plan Assessment: Impression: #1 Acute on chronic hypoxemic respiratory failure secondary to an acute exacerbation of chronic obstructive pulmonary disease. #2 Oxygen dependent chronic obstructive pulmonary disease with an FEV1 value of 49% of predicted. #3 Chronic and ongoing tobacco dependence of greater than 50 years. #4 Severe anorexia/cachexia syndrome #5 Poor overall functional performance based on the above-mentioned multiple comorbidities. Plan: The patient was seen and evaluated by Dr. Granados. Still not back to baseline. We will continue with the current treatment plan including bronchodilators, steroids, antibiotics, promethazine with codeine. She states she has not smoked since her previous admission. We will continue to follow and make further recommendations based on her clinical status. I, the cosigning physician, performed a history & physical examination of the patient. Lungs sounds bilateral end expiratory wheeze, diminished. Maintaining good O2 saturations in the 90s on 3 L/m. I discussed the assessment and plan of care with my nurse practitioner, Darlene Underwood. I attest to the above consultation as dictated by her.
--- NOTE | 2018-07-13 16:12 | P.PN ---
Subjective Progress Note Date: 07/13/18 Principal diagnosis: Acute on chronic hypoxemic respiratory failure Acute exacerbation COPD 78-year-old female patient who has a history of severe oxygen dependent chronic obstructive pulmonary disease, chronic tobacco dependence, severe protein calorie malnutrition. She follows in our office for the same. Her FEV1 value is 49% of predicted. She is on Anoro and albuterol in the outpatient setting. She was last seen in 06/28/2018. She was doing fairly well at that time. Approximately 4 days ago the patient states her had fallen outside of the house he was unable to get himself up. She tried to help him and had been without her oxygen while she was outside. She was unable to get him back up. She got quite dyspneic and had to go back in the house and relax and get her oxygen back on and she was able to call her son who came over and helped her who was not injured. Since that time however she is still having trouble with significant shortness of breath and dyspnea on exertion presented to the emergency room yesterday for the same. She was quite hypoxic and required CPAP for some time. Chest x-ray showed no acute process. She is seen today in consultation on the selective care unit. She is currently resting comfortably in bed. Awake and alert. She is dyspneic with conversation. Dyspneic with minimal activity. Maintain O2 saturations in the 90s on 3 L/m per nasal cannula. Afebrile. Blood and ultimately stable. White count 5.2. Hemoglobin 12.2. Creatinine 0.49. She has been initiated on DuoNeb inhalations, Pulmicort and Perforomist inhalations, IV Solu-Medrol. Antibiotics in the form of ceftriaxone. She continues with a dry nonproductive cough. 07/13/2018 patient seen and evaluated in follow-up on the selective care unit. She is currently sitting up in a chair at the bedside. Awake and alert. She still remains quite dyspneic on conversation and minimal exertion. Still not back to her baseline. Still somewhat bronchospastic and wheezy. She is maintaining O2 saturations in the 90s on 3 L/m per nasal cannula. She's afebrile. Hemodynamically stable. White count 15.8. Hemoglobin 13.0. Creatinine 0.58. She remains on DuoNeb inhalations, IV Solu-Medrol, ceftriaxone. She is also on Mucinex and promethazine. Objective - Vital Signs Vital signs: Vital Signs Temp 98.1 F 07/13/18 09:25 Pulse 80 07/13/18 11:56 Resp 22 07/13/18 09:25 BP 121/65 07/13/18 09:25 Pulse Ox 98 07/13/18 09:25 Intake & Output 07/12/18 07/13/18 07/13/18 18:59 06:59 18:59 Intake Total 350 1310 120 Balance 350 1310 120 Weight 52.8 kg 27.5 kg Intake: Intake, IV Titration 500 Amount cefTRIAXone 1 gm In 500 Sodium Chloride 0.9% 50 ml @ 100 mls/hr IVPB Q24HR [facility] Rx#:[id number] Oral 350 810 120 Other: Voiding Method Bedside Commode Bedside Commode Diaper Diaper # Voids 1 1 - Exam GENERAL EXAM: Pleasant frail cachectic 78-year-old female patient. Mild respiratory distress. On 3 L nasal cannula. HEAD: Normocephalic. EYES: Normal reaction of pupils, equal size. NOSE: Clear with pink turbinates. THROAT: No erythema or exudates. NECK: No masses, no JVD. CHEST: No chest wall deformity. LUNGS: Equal air entry with bilateral end expiratory wheeze, diminished. CVS: S1 and S2 normal with no audible murmur, regular rhythm. ABDOMEN: No hepatosplenomegaly, normal bowel sounds, no guarding or rigidity. SPINE: Kyphoscoliosis SKIN: No rashes - Labs CBC & Chem 7: 07/13/18 06:19 07/13/18 06:19 Labs: Abnormal Lab Results - Last 24 Hours (Table) 07/12/18 07/12/18 07/13/18 Range/Units 16:40 20:24 06:09 WBC (3.8-10.6) k/uL Neutrophils # (1.3-7.7) k/uL Lymphocytes # (1.0-4.8) k/uL BUN (7-17) mg/dL Glucose (74-99) mg/dL POC Glucose (mg/dL) 136 H 158 H 129 H (75-99) mg/dL 07/13/18 07/13/18 07/13/18 Range/Units 06:19 06:19 11:47 WBC 15.8 H (3.8-10.6) k/uL Neutrophils # 14.4 H (1.3-7.7) k/uL Lymphocytes # 0.9 L (1.0-4.8) k/uL BUN 27 H (7-17) mg/dL Glucose 137 H (74-99) mg/dL POC Glucose (mg/dL) 141 H (75-99) mg/dL Assessment and Plan Assessment: 1. Acute on chronic hypoxemic respiratory failure secondary to COPD exacerbation - Treat underlying etiology; continue with O2 per protocol keeping SpO2 greater than 89% 2. Acute exacerbation COPD with acute tracheobronchitis - IV Solu-Medrol 60 mg every 6 hours - Bronchodilator and steroid nebulizer treatments - IV antibiotics in form of ceftriaxone 1 g daily - Symptomatic treatment with Phenergan with codeine 5 male's every 4 hours when necessary 3. Severe anorexia/cachexia/ severe protein calorie malnutrition - Dietary consult in place; recommendations are pending 4. Chronic tobacco abuse; counseling done on smoking cessation 5. DVT prophylaxis; subcu heparin CODE STATUS; full code Time with Patient: Greater than 30
[2018-07-13 16:36] LABS: Glucose,Whole Blood 139 mg/dL (75-99)
[2018-07-13 21:09] LABS: Glucose,Whole Blood 165 mg/dL (75-99)
[2018-07-14] MEDS: PROMETHAZ-COD 6.25-10 MG/5 ML 5 ML CUP PO PRN ×4 (05:45→19:35)
[2018-07-14] MEDS: INSULIN ASPART (NovoLOG) 100 UNIT/ML VIAL SQ SCH ×4 (06:17→21:09)
[2018-07-14] MEDS: PANTOPRAZOLE 40 MG TABLET PO SCH (06:17)
[2018-07-14 06:18] LABS: Glucose,Whole Blood 126 mg/dL (75-99)
[2018-07-14] MEDS: methylPREDNISolone SOD SUCCI 125 MG/2 ML VIAL IV SCH ×4 (06:19→23:40)
[2018-07-14 06:41] LABS: Basophils % (A) 0 %; Eosinophils % (A) 0 %; HCT 38.6 % (34.0-46.0); HGB 12.3 gm/dL (11.4-16.0); Lymphocytes # (A) 0.6 k/uL (1.0-4.8); Lymphocytes % (A) 5 %; MCH 28.6 pg (25.0-35.0); MCV 89.2 fL (80.0-100.0); Mean Platelet Volume 7.6; Monocytes # (A) 0.4 k/uL (0-1.0); Monocytes % (A) 3 %; Neutrophils % (A) 91 %; Platelet Count 213 k/uL (150-450); RBC 4.32 m/uL (3.80-5.40); RDW 14.1 % (11.5-15.5)
[2018-07-14 06:44] LABS: Blood Urea Nitrogen 26 mg/dL (7-17); Calcium 9.4 mg/dL (8.4-10.2); Carbon Dioxide 26 mmol/L (22-30); Glucose 125 mg/dL (74-99); Potassium 4.6 mmol/L (3.5-5.1); Sodium 140 mmol/L (137-145)
[2018-07-14 06:47] LABS: Anion Gap 7 mmol/L; Chloride 107 mmol/L (98-107)
[2018-07-14] MEDS: IPRATROPIUM-ALBUTEROL 3 ML NEB INHALATION SCH ×4 (06:53→20:41)
[2018-07-14] MEDS: HEPARIN SODIUM,PORCINE 5,000 UNIT/ML 1 ML VIAL SQ SCH ×2 (09:21→21:07)
[2018-07-14] MEDS: LORATADINE 10 MG TAB PO SCH (09:21)
[2018-07-14] MEDS: guaiFENesin 600 MG TABLET.ER PO SCH ×2 (09:21→19:34)
[2018-07-14 12:07] LABS: Glucose,Whole Blood 126 mg/dL (75-99)
--- NOTE | 2018-07-14 14:26 | P.PN ---
Subjective Progress Note Date: 07/14/18 On today's evaluation, the patient is feeling better and less short of breath is progressive spastic and wheezy and she states that she is recovered in the order of 50-70%. The Pulmicort Respules and the Perforomist nebulized tubes were discontinued and the patient is feeling better with these medications being off. She is on IV Solu-Medrol. She is on DuoNeb nebulized treatments and she is on IV Rocephin. She is also on a combination of Mucinex and promethazine for cough suppressant. She is tolerating her diet. She is ambulating. She is thinking cachectic and weak yet she is quite functional according to her. No chest pain. No altered mentation. Family is at the bedside. Objective - Vital Signs Vital signs: Vital Signs Temp 97.6 F 07/14/18 08:50 Pulse 72 07/14/18 11:23 Resp 18 07/14/18 08:50 BP 141/78 07/14/18 08:50 Pulse Ox 99 07/14/18 08:50 Intake & Output 07/13/18 07/14/18 07/14/18 18:59 06:59 18:59 Intake Total 720 400 720 Balance 720 400 720 Weight 48.4 kg 58.1 kg Intake: IV 400 0.9 400 Oral 720 720 Other: Voiding Method Bedside Commode Toilet Toilet Diaper Diaper Diaper # Voids 1 1 1 # Bowel Movements 0 0 - Exam GENERAL EXAM: Pleasant, frail, cachectic HEAD: Normocephalic. EYES: Normal reaction of pupils, equal size. NOSE: Clear with pink turbinates. THROAT: No erythema or exudates. NECK: No masses, no JVD. CHEST: No chest wall deformity. LUNGS: Equal air entry with bilateral end expiratory wheeze, diminished. CVS: S1 and S2 normal with no audible murmur, regular rhythm. ABDOMEN: No hepatosplenomegaly, normal bowel sounds, no guarding or rigidity. SPINE: Kyphoscoliosis SKIN: No rashes CENTRAL NERVOUS SYSTEM: No focal deficits, tone is normal in all 4 extremities. EXTREMITIES: There is no peripheral edema. No clubbing, no cyanosis. Peripheral pulses are intact. - Labs CBC & Chem 7: 07/14/18 05:34 07/14/18 05:34 Labs: Abnormal Lab Results - Last 24 Hours (Table) 07/13/18 07/13/18 07/14/18 Range/Units 16:30 21:07 05:34 WBC 11.0 H (3.8-10.6) k/uL Neutrophils # 10.0 H (1.3-7.7) k/uL Lymphocytes # 0.6 L (1.0-4.8) k/uL BUN (7-17) mg/dL Glucose (74-99) mg/dL POC Glucose (mg/dL) 139 H 165 H (75-99) mg/dL 07/14/18 07/14/18 07/14/18 Range/Units 05:34 06:16 11:58 WBC (3.8-10.6) k/uL Neutrophils # (1.3-7.7) k/uL Lymphocytes # (1.0-4.8) k/uL BUN 26 H (7-17) mg/dL Glucose 125 H (74-99) mg/dL POC Glucose (mg/dL) 126 H 126 H (75-99) mg/dL Microbiology - Last 24 Hours (Table) 07/13/18 08:00 Gram Stain - Preliminary Sputum Sputum Culture - Preliminary Cinthia albicans Assessment and Plan Plan: #1 Acute on chronic hypoxemic respiratory failure secondary to an acute exacerbation of chronic obstructive pulmonary disease. #2 Oxygen dependent chronic obstructive pulmonary disease with an FEV1 value of 49% of predicted. #3 Chronic and ongoing tobacco dependence of greater than 50 years. #4 Severe anorexia/cachexia syndrome #5 Poor overall functional performance based on the above-mentioned multiple comorbidities. Plan Continue treatment. Taper steroids as of tomorrow. Discharge probably within next 24-48 hours.
--- NOTE | 2018-07-14 15:08 | P.PN ---
Subjective Progress Note Date: 07/14/18 Principal diagnosis: Acute on chronic hypoxemic respiratory failure Acute exacerbation COPD 78-year-old female patient who has a history of severe oxygen dependent chronic obstructive pulmonary disease, chronic tobacco dependence, severe protein calorie malnutrition. She follows in our office for the same. Her FEV1 value is 49% of predicted. She is on Anoro and albuterol in the outpatient setting. She was last seen in 06/28/2018. She was doing fairly well at that time. Approximately 4 days ago the patient states her had fallen outside of the house he was unable to get himself up. She tried to help him and had been without her oxygen while she was outside. She was unable to get him back up. She got quite dyspneic and had to go back in the house and relax and get her oxygen back on and she was able to call her son who came over and helped her who was not injured. Since that time however she is still having trouble with significant shortness of breath and dyspnea on exertion presented to the emergency room yesterday for the same. She was quite hypoxic and required CPAP for some time. Chest x-ray showed no acute process. She is seen today in consultation on the selective care unit. She is currently resting comfortably in bed. Awake and alert. She is dyspneic with conversation. Dyspneic with minimal activity. Maintain O2 saturations in the 90s on 3 L/m per nasal cannula. Afebrile. Blood and ultimately stable. White count 5.2. Hemoglobin 12.2. Creatinine 0.49. She has been initiated on DuoNeb inhalations, Pulmicort and Perforomist inhalations, IV Solu-Medrol. Antibiotics in the form of ceftriaxone. She continues with a dry nonproductive cough. 07/13/2018 patient seen and evaluated in follow-up on the selective care unit. She is currently sitting up in a chair at the bedside. Awake and alert. She still remains quite dyspneic on conversation and minimal exertion. Still not back to her baseline. Still somewhat bronchospastic and wheezy. She is maintaining O2 saturations in the 90s on 3 L/m per nasal cannula. She's afebrile. Hemodynamically stable. White count 15.8. Hemoglobin 13.0. Creatinine 0.58. She remains on DuoNeb inhalations, IV Solu-Medrol, ceftriaxone. She is also on Mucinex and promethazine. 07/14/2018 Patient is seen and evaluated in the room with family members at bedside; On today's evaluation, the patient is feeling better and less short of breath is progressive spastic and wheezy and she states that she is recovered in the order of 50-70%. The Pulmicort Respules and the Perforomist nebulized tubes were discontinued and the patient is feeling better with these medications being off. She is on IV Solu-Medrol. She is on DuoNeb nebulized treatments and she is on IV Rocephin. She is also on a combination of Mucinex and promethazine for cough suppressant. She is tolerating her diet. She is ambulating. She is thinking cachectic and weak yet she is quite functional according to her. No chest pain. No altered mentation. Family is at the bedside. Objective - Vital Signs Vital signs: Vital Signs Temp 97.6 F 07/14/18 08:50 Pulse 72 07/14/18 11:23 Resp 18 07/14/18 08:50 BP 141/78 07/14/18 08:50 Pulse Ox 99 07/14/18 08:50 Intake & Output 07/13/18 07/14/18 07/14/18 18:59 06:59 18:59 Intake Total 720 400 480 Balance 720 400 480 Weight 48.4 kg 58.1 kg Intake: IV 400 0.9 400 Oral 720 480 Other: Voiding Method Bedside Commode Toilet Toilet Diaper Diaper Diaper # Voids 1 1 # Bowel Movements 0 - Exam GENERAL EXAM: Pleasant frail cachectic 78-year-old female patient. Mild respiratory distress. On 3 L nasal cannula. HEAD: Normocephalic. EYES: Normal reaction of pupils, equal size. NOSE: Clear with pink turbinates. THROAT: No erythema or exudates. NECK: No masses, no JVD. CHEST: No chest wall deformity. LUNGS: Equal air entry with bilateral end expiratory wheeze, diminished. CVS: S1 and S2 normal with no audible murmur, regular rhythm. ABDOMEN: No hepatosplenomegaly, normal bowel sounds, no guarding or rigidity. SPINE: Kyphoscoliosis SKIN: No rashes - Labs CBC & Chem 7: 07/14/18 05:34 05/05/19 05:34 Labs: Abnormal Lab Results - Last 24 Hours (Table) 07/13/18 07/13/18 07/13/18 Range/Units 11:47 16:30 21:07 WBC (3.8-10.6) k/uL Neutrophils # (1.3-7.7) k/uL Lymphocytes # (1.0-4.8) k/uL BUN (7-17) mg/dL Glucose (74-99) mg/dL POC Glucose (mg/dL) 141 H 139 H 165 H (75-99) mg/dL 07/14/18 07/14/18 07/14/18 Range/Units 05:34 05:34 06:16 WBC 11.0 H (3.8-10.6) k/uL Neutrophils # 10.0 H (1.3-7.7) k/uL Lymphocytes # 0.6 L (1.0-4.8) k/uL BUN 26 H (7-17) mg/dL Glucose 125 H (74-99) mg/dL POC Glucose (mg/dL) 126 H (75-99) mg/dL Microbiology - Last 24 Hours (Table) 07/13/18 08:00 Gram Stain - Preliminary Sputum Sputum Culture - Preliminary Assessment and Plan Assessment: 1. Acute on chronic hypoxemic respiratory failure secondary to COPD exacerbation - Treat underlying etiology; continue with O2 per protocol keeping SpO2 greater than 89% 2. Acute exacerbation COPD with acute tracheobronchitis - IV Solu-Medrol 60 mg every 6 hours - Bronchodilator and steroid nebulizer treatments - IV antibiotics in form of ceftriaxone 1 g daily - Symptomatic treatment with Phenergan with codeine 5 male's every 4 hours when necessary 3. Severe anorexia/cachexia/ severe protein calorie malnutrition - Dietary consult in place; recommendations are pending 4. Chronic tobacco abuse; counseling done on smoking cessation 5. DVT prophylaxis; subcu heparin CODE STATUS; full code Time with Patient: Greater than 30
[2018-07-14 16:56] LABS: Glucose,Whole Blood 152 mg/dL (75-99)
[2018-07-14 20:34] LABS: Glucose,Whole Blood 141 mg/dL (75-99)
[2018-07-15 05:58] LABS: Glucose,Whole Blood 215 mg/dL (75-99)
[2018-07-15] MEDS: PANTOPRAZOLE 40 MG TABLET PO SCH (06:15)
[2018-07-15] MEDS: methylPREDNISolone SOD SUCCI 125 MG/2 ML VIAL IV SCH ×2 (06:18→12:40)
[2018-07-15] MEDS: INSULIN ASPART (NovoLOG) 100 UNIT/ML VIAL SQ SCH ×4 (06:18→20:32)
[2018-07-15 07:27] LABS: Basophils % (A) 0 %; Eosinophils % (A) 0 %; HCT 40.1 % (34.0-46.0); HGB 12.7 gm/dL (11.4-16.0); Lymphocytes # (A) 0.5 k/uL (1.0-4.8); Lymphocytes % (A) 6 %; MCH 28.6 pg (25.0-35.0); MCHC 31.7 g/dL (31.0-37.0); MCV 90.4 fL (80.0-100.0); Monocytes # (A) 0.3 k/uL (0-1.0); Monocytes % (A) 3 %; Neutrophils # (A) 8.1 k/uL (1.3-7.7); Neutrophils % (A) 90 %; Platelet Count 191 k/uL (150-450); RBC 4.44 m/uL (3.80-5.40); RDW 13.8 % (11.5-15.5)
[2018-07-15 07:40] LABS: Anion Gap 6 mmol/L; Blood Urea Nitrogen 28 mg/dL (7-17); Calcium 9.4 mg/dL (8.4-10.2); Carbon Dioxide 25 mmol/L (22-30); Chloride 108 mmol/L (98-107); Glucose 135 mg/dL (74-99); Potassium 4.3 mmol/L (3.5-5.1); Sodium 139 mmol/L (137-145)
[2018-07-15] MEDS: guaiFENesin 600 MG TABLET.ER PO SCH ×2 (08:13→20:32)
[2018-07-15] MEDS: LORATADINE 10 MG TAB PO SCH (08:14)
[2018-07-15] MEDS: HEPARIN SODIUM,PORCINE 5,000 UNIT/ML 1 ML VIAL SQ SCH ×2 (08:14→20:32)
[2018-07-15] MEDS: PROMETHAZ-COD 6.25-10 MG/5 ML 5 ML CUP PO PRN ×2 (08:48→12:11)
[2018-07-15] MEDS: IPRATROPIUM-ALBUTEROL 3 ML NEB INHALATION SCH ×4 (08:54→20:05)
[2018-07-15 12:04] LABS: Glucose,Whole Blood 133 mg/dL (75-99)
[2018-07-15 16:50] LABS: Glucose,Whole Blood 140 mg/dL (75-99)
--- NOTE | 2018-07-15 17:00 | P.PN ---
Subjective Progress Note Date: 07/15/18 Principal diagnosis: On 07/15/2018 patient seen in follow-up on selective care unit. In the recliner, in no acute distress, currently on 3 L per nasal cannula with pulse ox of 98%, afebrile, hemodynamically stable, she states her breathing is improving, she is less dyspneic, lung sounds are diminished, no wheezing, no rhonchi. She is working on getting stronger, ambulation. Today's labs have been reviewed, no leukocytosis, with little, was 9.0, hemoglobin was 12.7, sodium was 139, potassium is 4.3, BUN was 28 and creatinine is was 0.52. Sputum culture showed Cinthia albicans only. Antibiotic coverage with the Rocephin, IV steroids 60 mg every 6 hours, nebulized bronchodilators Objective - Vital Signs Vital signs: Vital Signs Temp 98.3 F 07/15/18 15:07 Pulse 90 07/15/18 16:04 Resp 16 07/15/18 16:00 BP 157/81 07/15/18 15:07 Pulse Ox 98 07/15/18 15:50 Intake & Output 07/14/18 07/15/18 07/15/18 18:59 06:59 18:59 Intake Total 960 450 240 Output Total 100 Balance 960 450 140 Weight 50.1 kg Intake: IV 450 0.9 @50mls/hr 450 Oral 960 240 Output: Urine 100 Other: Voiding Method Toilet Toilet Diaper Diaper # Voids 0 1 # Bowel Movements 0 1 - Exam GENERAL EXAM: Alert, pleasant 78-year-old white female on 3 L of oxygen comfortable in no apparent distress. HEAD: Normocephalic/atraumatic. EYES: Normal reaction of pupils, equal size. Conjunctiva pink, sclera white. NOSE: Clear with pink turbinates. THROAT: No erythema or exudates. NECK: No masses, no JVD, no thyroid enlargement, no adenopathy. CHEST: No chest wall deformity. Symmetrical expansion. LUNGS: Equal air entry with diminished breath sounds at the bases, no wheezes, no rhonchi, no rales CVS: Regular rate and rhythm, normal S1 and S2, no gallops, no murmurs, no rubs ABDOMEN: Soft, nontender. No hepatosplenomegaly, normal bowel sounds, no guarding or rigidity. EXTREMITIES: No clubbing, no edema, no cyanosis, 2+ pulses and upper and lower extremities. MUSCULOSKELETAL: Muscle strength and tone normal. SPINE: No scoliosis or deformity SKIN: No rashes CENTRAL NERVOUS SYSTEM: Alert and oriented -3. No focal deficits, tone is normal in all 4 extremities. PSYCHIATRIC: Alert and oriented -3. Appropriate affect. Intact judgment and insight. - Labs CBC & Chem 7: 07/15/18 06:49 07/15/18 06:49 Labs: Abnormal Lab Results - Last 24 Hours (Table) 07/14/18 07/14/18 07/15/18 Range/Units 16:51 20:32 05:56 Neutrophils # (1.3-7.7) k/uL Lymphocytes # (1.0-4.8) k/uL Chloride (98-107) mmol/L BUN (7-17) mg/dL Glucose (74-99) mg/dL POC Glucose (mg/dL) 152 H 141 H 215 H (75-99) mg/dL 07/15/18 07/15/18 07/15/18 Range/Units 06:49 06:49 12:02 Neutrophils # 8.1 H (1.3-7.7) k/uL Lymphocytes # 0.5 L (1.0-4.8) k/uL Chloride 108 H (98-107) mmol/L BUN 28 H (7-17) mg/dL Glucose 135 H (74-99) mg/dL POC Glucose (mg/dL) 133 H (75-99) mg/dL Microbiology - Last 24 Hours (Table) 07/13/18 08:00 Gram Stain - Final Sputum Sputum Culture - Final Cinthia albicans Assessment and Plan Plan: Assessment: #1 Acute on chronic hypoxemic respiratory failure secondary to an acute exacerbation of chronic obstructive pulmonary disease. #2 Oxygen dependent chronic obstructive pulmonary disease with an FEV1 value of 49% of predicted. #3 Chronic and ongoing tobacco dependence of greater than 50 years. #4 Severe anorexia/cachexia syndrome #5 Poor overall functional performance based on the above-mentioned multiple comorbidities. Plan: We'll continue current medical treatment, current antibiotics, decrease the IV steroids to 40 mg every 8 hours, continue with nebulized bronchodilators, patient is improving, increase activity. From pulmonary perspective patient could be considered for discharge home in next 24 hours I performed a history & physical examination of the patient and discussed their management with my nurse practitioner, Leni Zarco. I reviewed the nurse practitioner's note and agree with the documented findings and plan of care. Lung sounds are positive for diminished breath sounds at the bases. The findings and the impression was discussed with the patient. I attest to the documentation by the nurse practitioner. Time with Patient: Less than 30
[2018-07-15 20:27] LABS: Glucose,Whole Blood 176 mg/dL (75-99)
--- NOTE | 2018-07-15 22:47 | PN ---
PROGRESS NOTE DATE OF SERVICE: 07/15/2018 This 78-year-old woman who was admitted with COPD, acute exacerbation, with acute purulent tracheobronchitis, also had acute on chronic hypoxemic respiratory failure. The patient still has significant shortness of breath. Dr. Linda is following the patient closely. The patient is on IV steroids, which are being tapered, as well as broad-spectrum IV antibiotics and bronchodilators. Past medical history reviewed. REVIEW OF SYSTEMS: CARDIOVASCULAR SYSTEM: No angina, palpitations. RESPIRATORY SYSTEM: As mentioned earlier. GI: No nausea, vomiting. : No dysuria or retention. NERVOUS SYSTEM: No numbness, weakness. CURRENT MEDICATIONS: Reviewed. They include: 1. Ventolin 2.5 q.i.d. and p.r.n. 2. DuoNeb q.i.d. p.r.n. 3. Xanax 0.25 t.i.d. 4. Rocephin 1 gram daily. 5. Mucinex. 6. Heparin 5000 units subcutaneously b.i.d. 7. NovoLog. 8. Claritin 10 mg daily. 9. Solu-Medrol 40 IV q.8. 10.Protonix 40 mg daily. 11.Phenergan with codeine. PHYSICAL EXAMINATION: Patient is alert, oriented x2. Pulse is 88, blood pressure 157/81, respirations 16, temperature 98.3, pulse ox 98% on 3 L. HEENT: Conjunctivae normal. NECK: No jugular venous distention. CARDIOVASCULAR SYSTEM: S1, S2 muffled. RESPIRATORY SYSTEM: Breath sounds diminished at the bases. Bilateral scattered rhonchi and crackles. ABDOMEN: Soft, nontender. LEGS: No edema. No swelling. NERVOUS SYSTEM: No focal deficit. LABS: WBC is 9, hemoglobin 12.7, and platelets are 90. ASSESSMENT: 1. Chronic obstructive pulmonary disease, acute exacerbation, with acute hypoxic respiratory failure, acute on chronic. 2. Chronic hypoxic respiratory failure. 3. Severe anorexia. 4. Severe protein-calorie malnutrition. 5. History of nicotine dependence. 6. Body mass index 17.8. 7. Increased random blood sugar, possibly secondary to steroids. 8. History of cataracts. 9. Appendectomy. 10.Remote history of nicotine dependence. RECOMMENDATIONS AND DISCUSSION: In this 78-year-old woman who presented with multiple complex medical issues, we will monitor the patient closely, continue the current medications, continue symptomatic treatment. Monitor blood sugars closely. Taper the steroids. Bronchodilators. Empiric antibiotics. Supplementation. Prognosis guarded because of multiple complex medical issues. Further recommendations to follow. Discussed with the family at length. AMANDA / JIMN: [id number] /
[2018-07-15] MEDS: methylPREDNISolone SOD SUCCI 40 MG/ML 1 ML VIAL IV SCH (22:59)
[2018-07-16 07:04] LABS: Glucose,Whole Blood 107 mg/dL (75-99)
[2018-07-16] MEDS: INSULIN ASPART (NovoLOG) 100 UNIT/ML VIAL SQ SCH ×4 (07:19→20:15)
[2018-07-16] MEDS: IPRATROPIUM-ALBUTEROL 3 ML NEB INHALATION SCH ×4 (07:40→19:25)
[2018-07-16] MEDS: methylPREDNISolone SOD SUCCI 40 MG/ML 1 ML VIAL IV SCH (08:43)
[2018-07-16] MEDS: HEPARIN SODIUM,PORCINE 5,000 UNIT/ML 1 ML VIAL SQ SCH ×2 (08:43→20:15)
[2018-07-16] MEDS: LORATADINE 10 MG TAB PO SCH (08:44)
[2018-07-16] MEDS: guaiFENesin 600 MG TABLET.ER PO SCH ×2 (08:44→20:15)
[2018-07-16] MEDS: PANTOPRAZOLE 40 MG TABLET PO SCH (08:44)
[2018-07-16 08:49] LABS: Anion Gap 4 mmol/L; Blood Urea Nitrogen 24 mg/dL (7-17); Calcium 9.2 mg/dL (8.4-10.2); Carbon Dioxide 30 mmol/L (22-30); Chloride 106 mmol/L (98-107); Glucose 96 mg/dL (74-99); Sodium 140 mmol/L (137-145)
[2018-07-16 09:01] LABS: Basophils % (A) 0 %; Eosinophils % (A) 0 %; HCT 42.9 % (34.0-46.0); HGB 13.7 gm/dL (11.4-16.0); Lymphocytes # (A) 0.6 k/uL (1.0-4.8); Lymphocytes % (A) 6 %; MCH 28.6 pg (25.0-35.0); MCHC 31.8 g/dL (31.0-37.0); Mean Platelet Volume 7.7; Monocytes # (A) 0.6 k/uL (0-1.0); Monocytes % (A) 6 %; Neutrophils # (A) 8.7 k/uL (1.3-7.7); Neutrophils % (A) 87 %; Platelet Count 210 k/uL (150-450); RBC 4.77 m/uL (3.80-5.40); RDW 14.5 % (11.5-15.5); WBC 9.9 k/uL (3.8-10.6)
--- NOTE | 2018-07-16 11:46 | XR ---
EXAMINATION TYPE: XR chest 1V portable DATE OF EXAM: 07/16/2018 Comparison: 07/11/2018 Clinical History: 78 year-old female shortness of breath, COPD Findings: Rightward patient rotation alters normal cardiomediastinal contours. Heart upper limits of normal in size. Right hilar prominence, increased from prior, likely due to patient rotation. Mild diffuse inte rstitial prominence. Small effusions with bibasilar densities. Hyperinflation. Impression: 1. Rotated exam. 2. COPD and possible mild CHF given new small pleural effusions. Adjacent atelectasis and/or consolid ation.
[2018-07-16] MEDS: methylPREDNISolone SOD SUCCI 125 MG/2 ML VIAL IV SCH ×3 (11:50→23:03)
[2018-07-16 11:55] LABS: Glucose,Whole Blood 99 mg/dL (75-99)
[2018-07-16] MEDS ORDERED: FUROSEMIDE 10 MG/ML 4 ML VIAL IV STA (12:38)
--- NOTE | 2018-07-16 12:44 | P.PN ---
Subjective Progress Note Date: 07/16/18 Principal diagnosis: On 07/15/2018 patient seen in follow-up on selective care unit. In the recliner, in no acute distress, currently on 3 L per nasal cannula with pulse ox of 98%, afebrile, hemodynamically stable, she states her breathing is improving, she is less dyspneic, lung sounds are diminished, no wheezing, no rhonchi. She is working on getting stronger, ambulation. Today's labs have been reviewed, no leukocytosis, with little, was 9.0, hemoglobin was 12.7, sodium was 139, potassium is 4.3, BUN was 28 and creatinine is was 0.52. Sputum culture showed Cinthia albicans only. Antibiotic coverage with the Rocephin, IV steroids 60 mg every 6 hours, nebulized bronchodilators On 07/16/2018 patient seen in follow-up on medical surgical floor. This morning patient had a episode of respiratory distress, she was having trouble expectorating secretions, she felt like the phlegm was getting stuck in her throat, she was more dyspneic, more wheezy, she defervesced sounds worse than she did yesterday, she remains on 3 L of oxygen per pulse ox is 95%, she is afebrile, lung sounds are positive for diffuse wheezing on forced expiratory maneuver, her cough was nonproductive. Follow-up chest x-ray was obtained and showed mild diffuse interstitial prominence, small bilateral pleural effusions, and patient will be given a dose of IV Lasix. His labs have been reviewed, and are unremarkable. No leukocytosis, renal profile is within normal limits, no electrolyte abnormality. Sputum culture showed Cinthia albicans only, patient is on empiric antibiotic in the form of Rocephin. Objective - Vital Signs Vital signs: Vital Signs Temp 98.4 F 07/16/18 07:00 Pulse 86 07/16/18 11:26 Resp 18 07/16/18 07:00 BP 167/84 07/16/18 07:00 Pulse Ox 95 07/16/18 07:00 Intake & Output 07/15/18 07/16/18 07/16/18 18:59 06:59 18:59 Intake Total 480 240 Output Total 100 200 Balance 380 40 Intake: Oral 480 240 Output: Urine 100 200 Other: Voiding Method Toilet Toilet Diaper Diaper # Voids 1 1 # Bowel Movements 1 - Exam GENERAL EXAM: Alert, pleasant 78-year-old white female on 3 L of oxygen comfortable in no apparent distress. HEAD: Normocephalic/atraumatic. EYES: Normal reaction of pupils, equal size. Conjunctiva pink, sclera white. NOSE: Clear with pink turbinates. THROAT: No erythema or exudates. NECK: No masses, no JVD, no thyroid enlargement, no adenopathy. CHEST: No chest wall deformity. Symmetrical expansion. LUNGS: Equal air entry with diminished breath sounds with diffuse wheezes on forced expiratory maneuver CVS: Regular rate and rhythm, normal S1 and S2, no gallops, no murmurs, no rubs ABDOMEN: Soft, nontender. No hepatosplenomegaly, normal bowel sounds, no guarding or rigidity. EXTREMITIES: No clubbing, no edema, no cyanosis, 2+ pulses and upper and lower extremities. MUSCULOSKELETAL: Muscle strength and tone normal. SPINE: No scoliosis or deformity SKIN: No rashes CENTRAL NERVOUS SYSTEM: Alert and oriented -3. No focal deficits, tone is normal in all 4 extremities. PSYCHIATRIC: Alert and oriented -3. Appropriate affect. Intact judgment and insight. - Labs CBC & Chem 7: 07/16/18 07:45 07/16/18 07:45 Labs: Abnormal Lab Results - Last 24 Hours (Table) 07/15/18 07/15/18 07/16/18 Range/Units 16:39 20:17 06:53 Neutrophils # (1.3-7.7) k/uL Lymphocytes # (1.0-4.8) k/uL BUN (7-17) mg/dL POC Glucose (mg/dL) 140 H 176 H 107 H (75-99) mg/dL 07/16/18 07/16/18 Range/Units 07:45 07:45 Neutrophils # 8.7 H (1.3-7.7) k/uL Lymphocytes # 0.6 L (1.0-4.8) k/uL BUN 24 H (7-17) mg/dL POC Glucose (mg/dL) (75-99) mg/dL Microbiology - Last 24 Hours (Table) 07/13/18 08:00 Gram Stain - Final Sputum Sputum Culture - Final Cinthia albicans Assessment and Plan Plan: Assessment: #1 Acute on chronic hypoxemic respiratory failure secondary to an acute exacerbation of chronic obstructive pulmonary disease. #2 Oxygen dependent chronic obstructive pulmonary disease with an FEV1 value of 49% of predicted. #3 Chronic and ongoing tobacco dependence of greater than 50 years. #4 Severe anorexia/cachexia syndrome #5 Poor overall functional performance based on the above-mentioned multiple comorbidities. #6 mild CHF, and bilateral pleural effusions, previously documented normal ejection fraction Plan: Today's chest x-ray has been reviewed, and shows mild interstitial prominence, bilateral pleural effusions, changes compatible with the fluid overload, and congestive heart failure. We'll give the patient a dose of IV Lasix, will ch ema to with IV steroids, we'll increase him back up to 60 mg every 6 hours, continue with nebulized bronchodilators empiric antibiotics, Pulmicort and Perforomist, obtain proBNP level. Obtain a follow-up chest x-ray tomorrow. I performed a history & physical examination of the patient and discussed their management with my nurse practitioner, Leni Zarco. I reviewed the nurse practitioner's note and agree with the documented findings and plan of care. Lung sounds are positive for diminished breath sounds at the bases. The findings and the impression was discussed with the patient. I attest to the documentation by the nurse practitioner. Time with Patient: Less than 30
[2018-07-16 16:29] LABS: Glucose,Whole Blood 162 mg/dL (75-99)
[2018-07-16] MEDS: BUDESONIDE 1 MG/2 ML NEBU INHALATION SCH (19:24)
[2018-07-16] MEDS: FORMOTEROL FUMARATE 20 MCG/2 ML NEBU INHALATION SCH (19:25)
[2018-07-16 20:25] LABS: Glucose,Whole Blood 121 mg/dL (75-99)
--- NOTE | 2018-07-16 23:10 | PN ---
PROGRESS NOTE DATE OF SERVICE: 07/16/2018 This 78-year-old woman who was admitted with COPD, acute exacerbation, was slightly improving, but today the patient has taken a turn for the worse. The patient is more short of breath and is not able to complete a sentence. Chest x-ray which was done today, which is personally reviewed by me, shows COPD and possibly mild CHF. Past medical history reviewed. REVIEW OF SYSTEMS: CARDIOVASCULAR SYSTEM: No angina, palpitations. RESPIRATORY SYSTEM: As mentioned earlier. GI: As mentioned earlier. : No dysuria or retention. NERVOUS SYSTEM: No numbness, weakness. CURRENT MEDICATIONS: Reviewed. They include: 1. Ventolin p.r.n. 2. DuoNeb q.i.d. and p.r.n. 3. Xanax 0.25 t.i.d. 4. Pulmicort. 5. Rocephin 1 gram. 6. Perforomist. 7. Heparin. 8. NovoLog. 9. Claritin. 10.Solu-Medrol 60 IV q.6. 11.Protonix. PHYSICAL EXAMINATION: Patient is alert, oriented x3. Pulse is 86, blood pressure 150/81, respiration 15, temperature 98.1, pulse ox 97% on 3 L. HEENT: Conjunctivae normal. Oral mucosa moist. NECK: No jugular venous distention. No carotid bruit. No lymph node enlargement. CARDIOVASCULAR SYSTEM: S1, S2 muffled. RESPIRATORY SYSTEM: Breath sounds diminished at the bases. Bilateral scattered rhonchi and expiratory wheezing and crackles. Accessory muscles of respiration are acting now. ABDOMEN: Soft, non-tender. No mass palpable. LEGS: No edema. No swelling. NERVOUS SYSTEM: No focal deficit. LABS: WBC 9.9, hemoglobin 13.7, sodium 140, potassium 4. ASSESSMENT: 1. Chronic obstructive pulmonary disease, acute exacerbation, with acute hypoxic respiratory failure, acute on chronic. 2. Chronic hypoxic respiratory failure. 3. Severe anorexia. 4. Severe protein-calorie malnutrition. 5. History of nicotine dependence. 6. Body mass index of 17.8. 7. Increased random blood sugar, possibly secondary to steroids. 8. History of cataracts. 9. Appendectomy. 10.Remote history of nicotine dependence. RECOMMENDATIONS AND DISCUSSION: I recommend to continue current medications, continue with the monitoring, symptomatic treatment. NT proBNP is not much elevated. Closely monitor. The steroid dose has been increased, and also Lasix has been given. Continue the rest of the medications. Closely follow with Dr. Linda. Prognosis guarded. Further recommendations to follow. Discussed with the family. MMODL / IJN: [id number] /
[2018-07-17] MEDS: methylPREDNISolone SOD SUCCI 125 MG/2 ML VIAL IV SCH ×3 (05:28→17:16)
[2018-07-17 07:16] LABS: Glucose,Whole Blood 107 mg/dL (75-99)
[2018-07-17] MEDS: IPRATROPIUM-ALBUTEROL 3 ML NEB INHALATION SCH ×4 (07:33→21:36)
[2018-07-17] MEDS: BUDESONIDE 1 MG/2 ML NEBU INHALATION SCH ×2 (07:33→21:36)
[2018-07-17] MEDS: INSULIN ASPART (NovoLOG) 100 UNIT/ML VIAL SQ SCH ×4 (07:40→22:48)
[2018-07-17] MEDS: FORMOTEROL FUMARATE 20 MCG/2 ML NEBU INHALATION SCH ×2 (07:42→21:36)
[2018-07-17] MEDS: LORATADINE 10 MG TAB PO SCH (07:47)
[2018-07-17] MEDS: guaiFENesin 600 MG TABLET.ER PO SCH ×2 (07:47→22:48)
[2018-07-17] MEDS: HEPARIN SODIUM,PORCINE 5,000 UNIT/ML 1 ML VIAL SQ SCH ×2 (07:47→22:48)
[2018-07-17] MEDS: PANTOPRAZOLE 40 MG TABLET PO SCH (07:47)
--- NOTE | 2018-07-17 08:02 | CT ---
EXAMINATION TYPE: CT chest wo con DATE OF EXAM: 07/17/2018 COMPARISON: None HISTORY: Shortness of breath CT DLP: 204.[address] of the chest was performed with lung and mediastinal window settings submitted. The la ck of contrast limits evaluation of the vascular, mediastinal and parenchymal structures including th e upper abdomen. LUNGS: Moderate hyperinflation compatible with COPD. Moderate upper lobe emphysematous change. Parenc hymal scar right upper lobe. No evidence for concerning nodule or mass. No infiltrate identified. Sma ll left-sided pleural effusion. MEDIASTINUM/KELVIN: Thoracic aorta is of normal caliber with limited evaluation given lack of contrast . The heart is not enlarged. No evidence for mediastinal mass. No lymph nodes greater than 1cm. UPPER ABDOMEN: Right-sided nephrolithiasis. OTHER: No significant other abnormality. IMPRESSION: 1. COPD with underlying emphysematous changes.
--- NOTE | 2018-07-17 08:18 | XR ---
EXAMINATION TYPE: XR chest 1V portable DATE OF EXAM: 07/17/2018 HISTORY: Shortness of breath. COMPARISON: 07/16/2018 TECHNIQUE: Single view of the chest is submitted. FINDINGS: Demonstrated are scattered senescent parenchymal change. There is no evidence for focal infiltrate. The heart is stable. There is pulmonary venous congestion with small effusions. Hilar and mediastinal structures are within normal limits. Degenerative changes are seen of the dorsal spine. IMPRESSION: 1. There is pulmonary venous congestion with small effusions.
[2018-07-17 09:48] LABS: Anion Gap 8 mmol/L; Blood Urea Nitrogen 27 mg/dL (7-17); Calcium 9.4 mg/dL (8.4-10.2); Carbon Dioxide 31 mmol/L (22-30); Chloride 103 mmol/L (98-107); Glucose 197 mg/dL (74-99); Potassium 3.4 mmol/L (3.5-5.1); Sodium 142 mmol/L (137-145)
[2018-07-17] MEDS: AZITHROMYCIN 500 MG TAB PO SCH (11:40)
[2018-07-17] MEDS ORDERED: Potassium Replacement Protocol 1 EACH MISC MISCELLANE PRN ×2 (12:14→14:16)
[2018-07-17 12:15] LABS: Glucose,Whole Blood 165 mg/dL (75-99)
[2018-07-17] MEDS: POTASSIUM CHLORIDE ER 20 MEQ TAB.ER PO SCH ×2 (12:42→17:16)
--- NOTE | 2018-07-17 12:58 | P.PN ---
Subjective Progress Note Date: 07/17/18 Principal diagnosis: On 07/15/2018 patient seen in follow-up on selective care unit. In the recliner, in no acute distress, currently on 3 L per nasal cannula with pulse ox of 98%, afebrile, hemodynamically stable, she states her breathing is improving, she is less dyspneic, lung sounds are diminished, no wheezing, no rhonchi. She is working on getting stronger, ambulation. Today's labs have been reviewed, no leukocytosis, with little, was 9.0, hemoglobin was 12.7, sodium was 139, potassium is 4.3, BUN was 28 and creatinine is was 0.52. Sputum culture showed Cinthia albicans only. Antibiotic coverage with the Rocephin, IV steroids 60 mg every 6 hours, nebulized bronchodilators On 07/16/2018 patient seen in follow-up on medical surgical floor. This morning patient had a episode of respiratory distress, she was having trouble expectorating secretions, she felt like the phlegm was getting stuck in her throat, she was more dyspneic, more wheezy, she defervesced sounds worse than she did yesterday, she remains on 3 L of oxygen per pulse ox is 95%, she is afebrile, lung sounds are positive for diffuse wheezing on forced expiratory maneuver, her cough was nonproductive. Follow-up chest x-ray was obtained and showed mild diffuse interstitial prominence, small bilateral pleural effusions, and patient will be given a dose of IV Lasix. His labs have been reviewed, and are unremarkable. No leukocytosis, renal profile is within normal limits, no electrolyte abnormality. Sputum culture showed Cinthia albicans only, patient is on empiric antibiotic in the form of Rocephin. On 07/17/2018 patient seen in follow-up on medical surgical floor. States she is breathing a bit better today, still wheezy, still dyspneic. Remains on 3 L of oxygen, off oxygen 91%, afebrile. Patient received a dose of IV Lasix yesterday, and today's chest x-ray shows improvement in the appearance of multiple pleural effusions, high-resolution CT was obtained and showed emphys ematous changes, but no evidence for concerning nodule or mass, no infiltrates, and a small left-sided pleural effusion. His lab work has been reviewed, as showed a sodium of 142, potassium is 3.4, chloride is 103, CO2 31, B1 is 27 creatinine is 0.57, this will be replaced per protocol. We'll continue with IV Solu-Medrol, Zithromax will be added, patient is coughing up some thick phlegm Objective - Vital Signs Vital signs: Vital Signs Temp 98.0 F 07/17/18 07:34 Pulse 88 07/17/18 11:30 Resp 20 07/17/18 11:18 BP 154/76 07/17/18 07:34 Pulse Ox 91 L 07/17/18 07:34 Intake & Output 07/16/18 07/17/18 07/17/18 18:59 06:59 18:59 Intake Total 1290 350 180 Output Total 200 Balance 1090 350 180 Weight 50.1 kg 50 kg Intake: Intake, IV Titration 50 Amount cefTRIAXone 1 gm In 50 Sodium Chloride 0.9% 50 ml @ 100 mls/hr IVPB Q24HR RUBIN Rx#:[id number] Oral 1240 350 180 Output: Urine 200 Other: Voiding Method Toilet Toilet Diaper # Voids 1 2 - Exam GENERAL EXAM: Alert, pleasant 78-year-old white female on 3 L of oxygen comfortable in no apparent distress. HEAD: Normocephalic/atraumatic. EYES: Normal reaction of pupils, equal size. Conjunctiva pink, sclera white. NOSE: Clear with pink turbinates. THROAT: No erythema or exudates. NECK: No masses, no JVD, no thyroid enlargement, no adenopathy. CHEST: No chest wall deformity. Symmetrical expansion. LUNGS: Equal air entry with diminished breath sounds with diffuse wheezes on forced expiratory maneuver CVS: Regular rate and rhythm, normal S1 and S2, no gallops, no murmurs, no rubs ABDOMEN: Soft, nontender. No hepatosplenomegaly, normal bowel sounds, no guarding or rigidity. EXTREMITIES: No clubbing, no edema, no cyanosis, 2+ pulses and upper and lower extremities. MUSCULOSKELETAL: Muscle strength and tone normal. SPINE: No scoliosis or deformity SKIN: No rashes CENTRAL NERVOUS SYSTEM: Alert and oriented -3. No focal deficits, tone is normal in all 4 extremities. PSYCHIATRIC: Alert and oriented -3. Appropriate affect. Intact judgment and insight. - Labs CBC & Chem 7: 07/16/18 07:45 07/17/18 09:17 Labs: Abnormal Lab Results - Last 24 Hours (Table) 07/16/18 07/16/18 07/17/18 Range/Units 16:18 20:12 07:03 Potassium (3.5-5.1) mmol/L Carbon Dioxide (22-30) mmol/L BUN (7-17) mg/dL Glucose (74-99) mg/dL POC Glucose (mg/dL) 162 H 121 H 107 H (75-99) mg/dL 07/17/18 07/17/18 Range/Units 09:17 12:03 Potassium 3.4 L (3.5-5.1) mmol/L Carbon Dioxide 31 H (22-30) mmol/L BUN 27 H (7-17) mg/dL Glucose 197 H (74-99) mg/dL POC Glucose (mg/dL) 165 H (75-99) mg/dL Assessment and Plan Plan: Assessment: #1 Acute on chronic hypoxemic respiratory failure secondary to an acute exacerbation of chronic obstructive pulmonary disease. #2 Oxygen dependent chronic obstructive pulmonary disease with an FEV1 value of 49% of predicted. #3 Chronic and ongoing tobacco dependence of greater than 50 years. #4 Severe anorexia/cachexia syndrome #5 Poor overall functional performance based on the above-mentioned multiple comorbidities. #6 mild CHF, and bilateral pleural effusions, previously documented normal ejection fraction Plan: Continue current treatment, follow-up chest x-ray and a high resolution CT scan has been reviewed with Dr. Lundberg, and shows a small left pleural effusion, emphysematous changes, no concerning infiltrates, masses or nodules. Patient is still dyspneic, and bronchospastic, may be slightly better compared to yesterday's exam. We'll continue the IV steroids, we'll add Zithromax, continue with Rocephin, patient is starting to bring up some phlegm. We will reevaluate in the next 24 hours. I performed a history & physical examination of the patient and discussed their management with my nurse practitioner, Leni Zarco. I reviewed the nurse practitioner's note and agree with the documented findings and plan of care. Lung sounds are positive for diminished breath sounds at the bases. The findings and the impression was discussed with the patient. I attest to the documentation by the nurse practitioner. Time with Patient: Less than 30
--- NOTE | 2018-07-17 14:27 | CDI ---
Documentation Clarification Form Date: 07/17/2018 2:13:49 PM From: Izabela Chaparro RN CCDS Admit Date: 07/11/2018 4:10:00 PM Patient Name: Chelsea Bland Visit Number: [id number] Discharge Date: ATTENTION: The Clinical Documentation Specialists (CDI) and [facility] Coding Staff appreciate your assistance in clarifying documentation. Please respond to the clarification below the line at the bottom and electronically sign. The CDI & [facility] Coding staff will review the response and follow-up if needed. Please note: Queries are made part of the Legal Health Record. If you have any questions, please contact the author of this message via ITS. Dr. Andrew Spring CHF is documented in the your progress note 07/16 and Pulmonology progress notes 07/16/2018 and 07/17/18 History/Risk Factors: 78 year old female presents to the ED with via EMS with Severe Respiratory Distress. Patient was on CPAP with EMS. Med history 2-3L home oxygen. Clinical Indicators: VS 149/86 81 97.9 14 3L high flow BNP: 704 Chest X Ray: possibly mild CHF Treatment: Lasix ivp x1 In your professional opinion, can you please clarify the acuity and type of CHF if known? Systolic Heart Failure: * Acute * Chronic * Acute on Chronic Diastolic Heart Failure: * Acute * Chronic * Acute on Chronic Systolic & Diastolic Heart Failure: * Acute * Chronic * Acute on Chronic Heart Failure * Unable to Determine * Other, please specify (Last Revision: June 2017) Unable to Determine MTDD
--- NOTE | 2018-07-17 16:04 | PN ---
PROGRESS NOTE DATE OF SERVICE: 07/17/2018 This 78-year-old woman who was admitted with COPD, acute exacerbation, also had acute on chronic hypoxic respiratory failure. The patient had worsening a couple of days ago and had very slow improvement. CT scan of the chest showed no other acute abnormality. Dr. Linda is following the patient. The patient is on high-dose IV steroids. On exam, alert and oriented x3. The pulse is 94, blood pressure 154/76, respiration 16, temperature 98 degrees, pulse ox 91% on 3 L. HEENT: Conjunctivae normal. NECK: No jugular venous distention. CARDIOVASCULAR SYSTEM: S1, S2 muffled. RESPIRATORY SYSTEM: Breath sounds diminished at the bases. Bilateral scattered rhonchi and crackles. ABDOMEN: Soft, non-tender. LEGS: No edema. No swelling. NERVOUS SYSTEM: No focal deficit. LABS: WBC 9.9, hemoglobin 13.7, sodium 142, potassium 3.4. ASSESSMENT: 1. Chronic obstructive pulmonary disease, acute exacerbation, with acute on chronic hypoxic respiratory failure with slow improvement. 2. Chronic hypoxic respiratory failure, on home oxygen. 3. Severe anorexia. 4. Severe protein-calorie malnutrition. 5. History of nicotine dependence. 6. Body mass index of 17.8. 7. Increased random blood sugar, possibly secondary to steroids. 8. History of cataracts. 9. History of appendectomy. 10.Remote history of nicotine dependence. RECOMMENDATIONS AND DISCUSSION: I recommend to continue current medications, continue with the monitoring, symptomatic treatment. Otherwise at this time I will continue bronchodilators, IV steroids, continue with the empiric antibiotics. Closely follow with Dr. Linda in the outpatient setting. Further recommendations to follow. MMODL / IJN: [id number] /
[2018-07-17 17:43] LABS: Glucose,Whole Blood 105 mg/dL (75-99)
[2018-07-17 21:03] LABS: Glucose,Whole Blood 149 mg/dL (75-99)
[2018-07-18] MEDS: methylPREDNISolone SOD SUCCI 125 MG/2 ML VIAL IV SCH ×2 (01:35→06:15)
[2018-07-18 07:20] LABS: Glucose,Whole Blood 132 mg/dL (75-99)
[2018-07-18 08:24] LABS: ALT 38 U/L (9-52); AST 21 U/L (14-36); Albumin 3.4 g/dL (3.5-5.0); Alkaline Phosphatase 39 U/L (38-126); Anion Gap 4 mmol/L; Blood Urea Nitrogen 29 mg/dL (7-17); Calcium 9.2 mg/dL (8.4-10.2); Carbon Dioxide 32 mmol/L (22-30); Chloride 105 mmol/L (98-107); Glucose 126 mg/dL (74-99); Potassium 4.1 mmol/L (3.5-5.1); Sodium 141 mmol/L (137-145); Total Bilirubin 0.7 mg/dL (0.2-1.3); Total Protein 5.9 g/dL (6.3-8.2)
[2018-07-18] MEDS: BUDESONIDE 1 MG/2 ML NEBU INHALATION SCH ×2 (08:47→19:27)
[2018-07-18] MEDS: IPRATROPIUM-ALBUTEROL 3 ML NEB INHALATION SCH ×4 (08:47→19:27)
[2018-07-18] MEDS: FORMOTEROL FUMARATE 20 MCG/2 ML NEBU INHALATION SCH ×2 (08:47→19:27)
[2018-07-18] MEDS: guaiFENesin 600 MG TABLET.ER PO SCH ×2 (09:39→20:42)
[2018-07-18] MEDS: AZITHROMYCIN 500 MG TAB PO SCH (09:39)
[2018-07-18] MEDS: PANTOPRAZOLE 40 MG TABLET PO SCH (09:39)
[2018-07-18] MEDS: HEPARIN SODIUM,PORCINE 5,000 UNIT/ML 1 ML VIAL SQ SCH ×2 (09:39→20:42)
[2018-07-18] MEDS: LORATADINE 10 MG TAB PO SCH (09:39)
[2018-07-18] MEDS: INSULIN ASPART (NovoLOG) 100 UNIT/ML VIAL SQ SCH ×4 (09:52→21:31)
--- NOTE | 2018-07-18 11:24 | P.PN ---
Subjective 78-year-old female was admitted for COPD exacerbation patient appears to have advanced COPD uses 3 L of oxygen still wheezing still gets easily short of breath with minimal exertion. Still complaining of shortness of breath and cough. There is no evidence of pneumonia Rocephin will be discontinued and we'll cut down the systemic steroids to 40 twice a day. Constitutional: Denied any fatigue denied any fever. Cardio vascular: denied any chest pain, palpitations Gastrointestinal denied any nausea vomiting Pulmonary: As mentioned in HPI Neurologic denied any new focal deficits All inpatient medications were reviewed and appropriate changes in these medications as dictated in the interval history and assessment and plan. Objective - Vital Signs Vital signs: Vital Signs Temp 98.1 F 07/18/18 09:51 Pulse 87 07/18/18 09:51 Resp 16 07/18/18 09:51 BP 174/83 07/18/18 09:51 Pulse Ox 93 L 07/18/18 09:51 Intake & Output 07/17/18 07/18/18 07/18/18 18:59 06:59 18:59 Intake Total 360 180 Balance 360 180 Weight 51.2 kg Intake: Oral 360 180 Other: # Voids 3 1 - Exam PHYSICAL EXAMINATION: GENERAL: The patient is alert and oriented x3, not in any acute distress. Thin built female HEENT: Pupils are round and equally reacting to light. EOMI. No scleral icterus. No conjunctival pallor. Normocephalic, atraumatic. No pharyngeal erythema. No thyromegaly. CARDIOVASCULAR: S1 and S2 present. No murmurs, rubs, or gallops. PULMONARY: Expiratory wheezing on exam significantly limited air entry into bilateral lung atkins ABDOMEN: Soft, nontender, nondistended, normoactive bowel sounds. No palpable organomegaly. MUSCULOSKELETAL: No joint swelling or deformity. EXTREMITIES: No cyanosis, clubbing, or pedal edema. NEUROLOGICAL: Gross neurological examination did not reveal any focal deficits. SKIN: No rashes. - Labs CBC & Chem 7: 07/16/18 07:45 07/18/18 06:34 Labs: Abnormal Lab Results - Last 24 Hours (Table) 07/17/18 07/17/18 07/17/18 Range/Units 12:03 17:13 20:50 Carbon Dioxide (22-30) mmol/L BUN (7-17) mg/dL Glucose (74-99) mg/dL POC Glucose (mg/dL) 165 H 105 H 149 H (75-99) mg/dL Total Protein (6.3-8.2) g/dL Albumin (3.5-5.0) g/dL 07/18/18 07/18/18 Range/Units 06:34 07:09 Carbon Dioxide 32 H (22-30) mmol/L BUN 29 H (7-17) mg/dL Glucose 126 H (74-99) mg/dL POC Glucose (mg/dL) 132 H (75-99) mg/dL Total Protein 5.9 L (6.3-8.2) g/dL Albumin 3.4 L (3.5-5.0) g/dL Assessment and Plan Plan: -Acute on chronic hypercapnic respiratory failure secondary to COPD exacerbation continue with systemic steroids antibiotics inhalational treatments -COPD with acute exacerbation -Cachexia: Secondary to chronic smoking mild protein calorie malnutrition -Possibly of congestive heart failure chronic diastolic dysfunction with mild acute exacerbation received Lasix. DVT prophylaxis with the subcutaneous heparin twice a day
--- NOTE | 2018-07-18 11:37 | P.PN ---
Subjective Progress Note Date: 07/18/18 Principal diagnosis: On 07/15/2018 patient seen in follow-up on selective care unit. In the recliner, in no acute distress, currently on 3 L per nasal cannula with pulse ox of 98%, afebrile, hemodynamically stable, she states her breathing is improving, she is less dyspneic, lung sounds are diminished, no wheezing, no rhonchi. She is working on getting stronger, ambulation. Today's labs have been reviewed, no leukocytosis, with little, was 9.0, hemoglobin was 12.7, sodium was 139, potassium is 4.3, BUN was 28 and creatinine is was 0.52. Sputum culture showed Cinthia albicans only. Antibiotic coverage with the Rocephin, IV steroids 60 mg every 6 hours, nebulized bronchodilators On 07/16/2018 patient seen in follow-up on medical surgical floor. This morning patient had a episode of respiratory distress, she was having trouble expectorating secretions, she felt like the phlegm was getting stuck in her throat, she was more dyspneic, more wheezy, she defervesced sounds worse than she did yesterday, she remains on 3 L of oxygen per pulse ox is 95%, she is afebrile, lung sounds are positive for diffuse wheezing on forced expiratory maneuver, her cough was nonproductive. Follow-up chest x-ray was obtained and showed mild diffuse interstitial prominence, small bilateral pleural effusions, and patient will be given a dose of IV Lasix. His labs have been reviewed, and are unremarkable. No leukocytosis, renal profile is within normal limits, no electrolyte abnormality. Sputum culture showed Cinthia albicans only, patient is on empiric antibiotic in the form of Rocephin. On 07/17/2018 patient seen in follow-up on medical surgical floor. States she is breathing a bit better today, still wheezy, still dyspneic. Remains on 3 L of oxygen, off oxygen 91%, afebrile. Patient received a dose of IV Lasix yesterday, and today's chest x-ray shows improvement in the appearance of multiple pleural effusions, high-resolution CT was obtained and showed emphys ematous changes, but no evidence for concerning nodule or mass, no infiltrates, and a small left-sided pleural effusion. His lab work has been reviewed, as showed a sodium of 142, potassium is 3.4, chloride is 103, CO2 31, B1 is 27 creatinine is 0.57, this will be replaced per protocol. We'll continue with IV Solu-Medrol, Zithromax will be added, patient is coughing up some thick phlegm On 07/18/2018 patient seen again in follow-up in medical surgical floor. She remains quite dyspneic with any exertion, and even with conversation, it takes her a while to recover from any activity. She remains on 3 L of oxygen, still having difficulty breathing, bringing up a small amount of yellow-colored mucus, lung sounds are diminished, and there is expiratory wheeze on forced exhale maneuver. It is lab work has been reviewed, BNP was done, sodium was 141, potassium is 4.1, chloride was 105, CO2 was 32, B1 is 29, creatinine was 0.56. Urine culture showed Cinthia albicans only. No other growth. No fever, no chills, patient is a combination of Zithromax and Rocephin, she is on IV steroids, she is maximized on medical treatment, but she is made very little improvement Objective - Vital Signs Vital signs: Vital Signs Temp 98.1 F 07/18/18 09:51 Pulse 87 07/18/18 09:51 Resp 16 07/18/18 09:51 BP 174/83 07/18/18 09:51 Pulse Ox 93 L 07/18/18 09:51 Intake & Output 07/17/18 07/18/18 07/18/18 18:59 06:59 18:59 Intake Total 360 180 Balance 360 180 Weight 51.2 kg Intake: Oral 360 180 Other: # Voids 3 1 - Exam GENERAL EXAM: Alert, pleasant 78-year-old white female on 3 L of oxygen dyspneic with conversation HEAD: Normocephalic/atraumatic. EYES: Normal reaction of pupils, equal size. Conjunctiva pink, sclera white. NOSE: Clear with pink turbinates. THROAT: No erythema or exudates. NECK: No masses, no JVD, no thyroid enlargement, no adenopathy. CHEST: No chest wall deformity. Symmetrical expansion. LUNGS: Equal air entry with diminished breath sounds with diffuse wheezes on forced expiratory maneuver CVS: Regular rate and rhythm, normal S1 and S2, no gallops, no murmurs, no rubs ABDOMEN: Soft, nontender. No hepatosplenomegaly, normal bowel sounds, no guarding or rigidity. EXTREMITIES: No clubbing, no edema, no cyanosis, 2+ pulses and upper and lower extremities. MUSCULOSKELETAL: Muscle strength and tone normal. SPINE: No scoliosis or deformity SKIN: No rashes CENTRAL NERVOUS SYSTEM: Alert and oriented -3. No focal deficits, tone is normal in all 4 extremities. PSYCHIATRIC: Alert and oriented -3. Appropriate affect. Intact judgment and insight. - Labs CBC & Chem 7: 07/16/18 07:45 07/18/18 06:34 Labs: Abnormal Lab Results - Last 24 Hours (Table) 07/17/18 07/17/18 07/17/18 Range/Units 12:03 17:13 20:50 Carbon Dioxide (22-30) mmol/L BUN (7-17) mg/dL Glucose (74-99) mg/dL POC Glucose (mg/dL) 165 H 105 H 149 H (75-99) mg/dL Total Protein (6.3-8.2) g/dL Albumin (3.5-5.0) g/dL 07/18/18 07/18/18 Range/Units 06:34 07:09 Carbon Dioxide 32 H (22-30) mmol/L BUN 29 H (7-17) mg/dL Glucose 126 H (74-99) mg/dL POC Glucose (mg/dL) 132 H (75-99) mg/dL Total Protein 5.9 L (6.3-8.2) g/dL Albumin 3.4 L (3.5-5.0) g/dL Assessment and Plan Plan: Assessment: #1 Acute on chronic hypoxemic respiratory failure secondary to an acute exacerbation of chronic obstructive pulmonary disease. #2 Oxygen dependent chronic obstructive pulmonary disease with an FEV1 value of 49% of predicted. #3 Chronic and ongoing tobacco dependence of greater than 50 years. #4 Severe anorexia/cachexia syndrome #5 Poor overall functional performance based on the above-mentioned multiple comorbidities. #6 mild CHF, and bilateral pleural effusions, previously documented normal ejection fraction Plan: Continue with the current medical treatment, sputum culture revealed no growth other than Cinthia, patient is afebrile, but she remains bronchospastic, and very dyspneic. Not back to baseline, not ready for discharge. Continue same medical treatment. I performed a history & physical examination of the patient and discussed their management with my nurse practitioner, Leni Zarco. I reviewed the nurse pr actitioner's note and agree with the documented findings and plan of care. Lung sounds are positive for diminished breath sounds at the bases. The findings and the impression was discussed with the patient. I attest to the documentation by the nurse practitioner. Time with Patient: Less than 30
[2018-07-18 12:16] LABS: Glucose,Whole Blood 140 mg/dL (75-99)
[2018-07-18 15:33] VITALS: BMI 18.2
[2018-07-18 17:11] LABS: Glucose,Whole Blood 110 mg/dL (75-99)
[2018-07-18] MEDS: methylPREDNISolone SOD SUCCI 40 MG/ML 1 ML VIAL IV SCH (20:43)
[2018-07-18 20:50] LABS: Glucose,Whole Blood 102 mg/dL (75-99)
[2018-07-19] MEDS: PANTOPRAZOLE 40 MG TABLET PO SCH (07:22)
[2018-07-19 07:37] LABS: Glucose,Whole Blood 88 mg/dL (75-99)
[2018-07-19] MEDS: INSULIN ASPART (NovoLOG) 100 UNIT/ML VIAL SQ SCH ×4 (07:38→20:56)
[2018-07-19] MEDS: guaiFENesin 600 MG TABLET.ER PO SCH ×2 (08:28→22:18)
[2018-07-19] MEDS: methylPREDNISolone SOD SUCCI 40 MG/ML 1 ML VIAL IV SCH ×4 (08:28→23:55)
[2018-07-19] MEDS: AZITHROMYCIN 500 MG TAB PO SCH (08:28)
[2018-07-19] MEDS: HEPARIN SODIUM,PORCINE 5,000 UNIT/ML 1 ML VIAL SQ SCH ×2 (08:28→22:21)
[2018-07-19] MEDS: LORATADINE 10 MG TAB PO SCH (08:28)
[2018-07-19] MEDS: BUDESONIDE 1 MG/2 ML NEBU INHALATION SCH ×2 (09:10→20:19)
[2018-07-19] MEDS: FORMOTEROL FUMARATE 20 MCG/2 ML NEBU INHALATION SCH ×2 (09:11→20:19)
[2018-07-19] MEDS: IPRATROPIUM-ALBUTEROL 3 ML NEB INHALATION SCH ×4 (09:11→20:19)
--- NOTE | 2018-07-19 11:33 | P.PN ---
Subjective 78-year-old female was admitted for COPD exacerbation patient appears to have advanced COPD uses 3 L of oxygen still wheezing still gets easily short of breath with minimal exertion. Still complaining of shortness of breath and cough. There is no evidence of pneumonia Rocephin will be discontinued and we'll cut down the systemic steroids to 40 twice a day. 07/19/2018 No significant improvement in her respiratory status continue with present t reatment. Because of her advanced isn't COPD patient has very slow improvement Constitutional: Denied any fatigue denied any fever. Cardio vascular: denied any chest pain, palpitations Gastrointestinal denied any nausea vomiting Pulmonary: As mentioned in HPI Neurologic denied any new focal deficits All inpatient medications were reviewed and appropriate changes in these medications as dictated in the interval history and assessment and plan. Objective - Vital Signs Vital signs: Vital Signs Temp 97.6 F 07/19/18 07:00 Pulse 84 07/19/18 09:30 Resp 16 07/19/18 07:00 BP 174/90 07/19/18 07:00 Pulse Ox 93 L 07/19/18 07:00 Intake & Output 07/18/18 07/19/18 07/19/18 18:59 06:59 18:59 Intake Total 660 180 Balance 660 180 Weight 51.2 kg 51.4 kg Intake: Oral 660 180 Other: Voiding Method Toilet Toilet # Voids 2 2 # Bowel Movements 2 - Exam PHYSICAL EXAMINATION: GENERAL: The patient is alert and oriented x3, not in any acute distress. Thin built female HEENT: Pupils are round and equally reacting to light. EOMI. No scleral icterus. No conjunctival pallor. Normocephalic, atraumatic. No pharyngeal erythema. No thyromegaly. CARDIOVASCULAR: S1 and S2 present. No murmurs, rubs, or gallops. PULMONARY: Expiratory wheezing on exam significantly limited air entry into bilateral lung atkins ABDOMEN: Soft, nontender, nondistended, normoactive bowel sounds. No palpable organomegaly. MUSCULOSKELETAL: No joint swelling or deformity. EXTREMITIES: No cyanosis, clubbing, or pedal edema. NEUROLOGICAL: Gross neurological examination did not reveal any focal deficits. SKIN: No rashes. - Labs CBC & Chem 7: 07/16/18 07:45 07/18/18 06:34 Labs: Abnormal Lab Results - Last 24 Hours (Table) 07/18/18 07/18/18 07/18/18 Range/Units 12:04 16:58 20:38 POC Glucose (mg/dL) 140 H 110 H 102 H (75-99) mg/dL Assessment and Plan Plan: -Acute on chronic hypercapnic respiratory failure secondary to COPD exacerbation continue with systemic steroids antibiotics inhalational treatments -COPD with acute exacerbation -Cachexia: Secondary to chronic smoking mild protein calorie malnutrition -Possibly of congestive heart failure chronic diastolic dysfunction with mild acute exacerbation received Lasix. DVT prophylaxis with the subcutaneous heparin twice a day
[2018-07-19 12:10] LABS: Glucose,Whole Blood 95 mg/dL (75-99)
--- NOTE | 2018-07-19 12:53 | P.PN ---
Subjective Progress Note Date: 07/19/18 Principal diagnosis: On 07/15/2018 patient seen in follow-up on selective care unit. In the recliner, in no acute distress, currently on 3 L per nasal cannula with pulse ox of 98%, afebrile, hemodynamically stable, she states her breathing is improving, she is less dyspneic, lung sounds are diminished, no wheezing, no rhonchi. She is working on getting stronger, ambulation. Today's labs have been reviewed, no leukocytosis, with little, was 9.0, hemoglobin was 12.7, sodium was 139, potassium is 4.3, BUN was 28 and creatinine is was 0.52. Sputum culture showed Cinthia albicans only. Antibiotic coverage with the Rocephin, IV steroids 60 mg every 6 hours, nebulized bronchodilators On 07/16/2018 patient seen in follow-up on medical surgical floor. This morning patient had a episode of respiratory distress, she was having trouble expectorating secretions, she felt like the phlegm was getting stuck in her throat, she was more dyspneic, more wheezy, she defervesced sounds worse than she did yesterday, she remains on 3 L of oxygen per pulse ox is 95%, she is afebrile, lung sounds are positive for diffuse wheezing on forced expiratory maneuver, her cough was nonproductive. Follow-up chest x-ray was obtained and showed mild diffuse interstitial prominence, small bilateral pleural effusions, and patient will be given a dose of IV Lasix. His labs have been reviewed, and are unremarkable. No leukocytosis, renal profile is within normal limits, no electrolyte abnormality. Sputum culture showed Cinthia albicans only, patient is on empiric antibiotic in the form of Rocephin. On 07/17/2018 patient seen in follow-up on medical surgical floor. States she is breathing a bit better today, still wheezy, still dyspneic. Remains on 3 L of oxygen, off oxygen 91%, afebrile. Patient received a dose of IV Lasix yesterday, and today's chest x-ray shows improvement in the appearance of multiple pleural effusions, high-resolution CT was obtained and showed emphys ematous changes, but no evidence for concerning nodule or mass, no infiltrates, and a small left-sided pleural effusion. His lab work has been reviewed, as showed a sodium of 142, potassium is 3.4, chloride is 103, CO2 31, B1 is 27 creatinine is 0.57, this will be replaced per protocol. We'll continue with IV Solu-Medrol, Zithromax will be added, patient is coughing up some thick phlegm On 07/18/2018 patient seen again in follow-up in medical surgical floor. She remains quite dyspneic with any exertion, and even with conversation, it takes her a while to recover from any activity. She remains on 3 L of oxygen, still having difficulty breathing, bringing up a small amount of yellow-colored mucus, lung sounds are diminished, and there is expiratory wheeze on forced exhale maneuver. It is lab work has been reviewed, BNP was done, sodium was 141, potassium is 4.1, chloride was 105, CO2 was 32, B1 is 29, creatinine was 0.56. Urine culture showed Cinthia albicans only. No other growth. No fever, no chills, patient is a combination of Zithromax and Rocephin, she is on IV steroids, she is maximized on medical treatment, but she is made very little improvement On 07/19/2018 patient seen in follow-up on medical surgical floor. She is still very wheezy, and dyspneic, is difficult for her to clear any phlegm. Her dose of steroids was attempted to be dropped, but the patient seems to be getting worse. Is a 3 L of oxygen, he is afebrile, hemodynamically she stable. No new labs, lung sounds are positive for diffuse wheezes, she is concerned that she may be sent home prematurely and will have to turnaround come back. Objective - Vital Signs Vital signs: Vital Signs Temp 97.6 F 07/19/18 07:00 Pulse 80 07/19/18 12:30 Resp 16 07/19/18 07:00 BP 174/90 07/19/18 07:00 Pulse Ox 93 L 07/19/18 07:00 Intake & Output 07/18/18 07/19/18 07/19/18 18:59 06:59 18:59 Intake Total 660 180 Balance 660 180 Weight 51.2 kg 51.4 kg Intake: Oral 660 180 Other: Voiding Method Toilet Toilet # Voids 2 2 # Bowel Movements 2 - Exam GENERAL EXAM: Alert, pleasant 78-year-old white female on 3 L of oxygen dyspneic with conversation HEAD: Normocephalic/atraumatic. EYES: Normal reaction of pupils, equal size. Conjunctiva pink, sclera white. NOSE: Clear with pink turbinates. THROAT: No erythema or exudates. NECK: No masses, no JVD, no thyroid enlargement, no adenopathy. CHEST: No chest wall deformity. Symmetrical expansion. LUNGS: Equal air entry with diminished breath sounds with diffuse wheezes CVS: Regular rate and rhythm, normal S1 and S2, no gallops, no murmurs, no rubs ABDOMEN: Soft, nontender. No hepatosplenomegaly, normal bowel sounds, no guarding or rigidity. EXTREMITIES: No clubbing, no edema, no cyanosis, 2+ pulses and upper and lower extremities. MUSCULOSKELETAL: Muscle strength and tone normal. SPINE: No scoliosis or deformity SKIN: No rashes CENTRAL NERVOUS SYSTEM: Alert and oriented -3. No focal deficits, tone is normal in all 4 extremities. PSYCHIATRIC: Alert and oriented -3. Appropriate affect. Intact judgment and insight. - Labs CBC & Chem 7: 07/16/18 07:45 07/18/18 06:34 Labs: Abnormal Lab Results - Last 24 Hours (Table) 07/18/18 07/18/18 Range/Units 16:58 20:38 POC Glucose (mg/dL) 110 H 102 H (75-99) mg/dL Assessment and Plan Plan: Assessment: #1 Acute on chronic hypoxemic respiratory failure secondary to an acute exacerbation of chronic obstructive pulmonary disease. #2 Oxygen dependent chronic obstructive pulmonary disease with an FEV1 value of 49% of predicted. #3 Chronic and ongoing tobacco dependence of greater than 50 years. #4 Severe anorexia/cachexia syndrome #5 Poor overall functional performance based on the above-mentioned multiple comorbidities. #6 mild CHF, and bilateral pleural effusions, previously documented normal ejection fraction Plan: We'll continue current medical treatment, will increase the steroids to 60 mg every 6 hours, patient seems to be sound worse, still very dyspneic, bronchospastic, she is concerned that she may be sent home prematurely and will have to turnaround come back. Continue current medical treatment. I performed a history & physical examination of the patient and discussed their management with my nurse practitioner, Leni Zarco. I reviewed the nurse practitioner's note and agree with the documented findings and plan of care. Lung sounds are positive for diminished breath sounds at the bases. The findings and the impression was discussed with the patient. I attest to the documentation by the nurse practitioner. Time with Patient: Less than 30
[2018-07-19 16:13] LABS: Glucose,Whole Blood 118 mg/dL (75-99)
[2018-07-19 21:10] LABS: Glucose,Whole Blood 123 mg/dL (75-99)
[2018-07-20] MEDS: methylPREDNISolone SOD SUCCI 40 MG/ML 1 ML VIAL IV SCH ×3 (05:55→17:18)
[2018-07-20 07:23] LABS: Glucose,Whole Blood 123 mg/dL (75-99)
[2018-07-20] MEDS: IPRATROPIUM-ALBUTEROL 3 ML NEB INHALATION SCH ×4 (07:42→19:02)
[2018-07-20] MEDS: BUDESONIDE 1 MG/2 ML NEBU INHALATION SCH ×2 (07:42→19:02)
[2018-07-20] MEDS: FORMOTEROL FUMARATE 20 MCG/2 ML NEBU INHALATION SCH ×2 (07:42→19:03)
[2018-07-20] MEDS: INSULIN ASPART (NovoLOG) 100 UNIT/ML VIAL SQ SCH ×4 (09:30→21:46)
[2018-07-20] MEDS: guaiFENesin 600 MG TABLET.ER PO SCH ×2 (09:31→21:47)
[2018-07-20] MEDS: HEPARIN SODIUM,PORCINE 5,000 UNIT/ML 1 ML VIAL SQ SCH ×2 (09:31→21:46)
[2018-07-20] MEDS: PANTOPRAZOLE 40 MG TABLET PO SCH (09:31)
[2018-07-20] MEDS: AZITHROMYCIN 500 MG TAB PO SCH (09:31)
[2018-07-20] MEDS: LORATADINE 10 MG TAB PO SCH (09:31)
--- NOTE | 2018-07-20 11:40 | P.PN ---
Subjective Progress Note Date: 07/20/18 Principal diagnosis: Acute exacerbation of severe oxygen dependent chronic obstructive pulmonary disease with ongoing tobacco dependence This is a very pleasant 78-year-old female patient who has a history of severe oxygen dependent chronic obstructive pulmonary disease, chronic tobacco dependence, severe protein calorie malnutrition. She follows in our office for the same. Her FEV1 value is 49% of predicted. She is on Anoro and albuterol in the outpatient setting. She was last seen in 06/28/2018. She was doing fairly well at that time. Approximately 4 days ago the patient states her had fallen outside of the house he was unable to get himself up. She tried to help him and had been without her oxygen while she was outside. She was unable to get him back up. She got quite dyspneic and had to go back in the house and relax and get her oxygen back on and she was able to call her son who came over and helped her who was not injured. Since that time however she is still having trouble with significant shortness of breath and dyspnea on exerti on presented to the emergency room yesterday for the same. She was quite hypoxic and required CPAP for some time. Chest x-ray showed no acute process. She is seen today in consultation on the selective care unit. She is currently resting comfortably in bed. Awake and alert. She is dyspneic with conversation. Dyspneic with minimal activity. Maintain O2 saturations in the 90s on 3 L/m per nasal cannula. Afebrile. Blood and ultimately stable. White count 5.2. Hemoglobin 12.2. Creatinine 0.49. She has been initiated on DuoNeb inhalations, Pulmicort and Perforomist inhalations, IV Solu-Medrol. Antibiotics in the form of ceftriaxone. She continues with a dry nonproductive cough. The patient is seen today 07/20/2017 in follow-up on the regular medical floor. She is awake and alert in no acute distress. Sitting up at the bedside. Her breathing has improved. Maintaining O2 saturations in the 90s on 3 L/m per nasal cannula. She remains on DuoNeb inhalations, Pulmicort and Perforomist inhalations, IV Solu-Medrol and azithromycin. Objective - Vital Signs Vital signs: Vital Signs Temp 99.3 F 07/20/18 07:26 Pulse 80 07/20/18 11:17 Resp 24 07/20/18 07:26 BP 173/79 07/20/18 07:26 Pulse Ox 94 L 07/20/18 07:26 Intake & Output 07/19/18 07/20/18 07/20/18 18:59 06:59 18:59 Intake Total 800 Balance 800 Weight 51.738 kg Intake: Oral 800 Other: Voiding Method Toilet Toilet # Voids 2 - Exam GENERAL EXAM: Pleasant, frail, cachectic 78-year-old female patient. Mild respiratory distress. On 3 L nasal cannula. HEAD: Normocephalic. EYES: Normal reaction of pupils, equal size. NOSE: Clear with pink turbinates. THROAT: No erythema or exudates. NECK: No masses, no JVD. CHEST: No chest wall deformity. LUNGS: Equal air entry with bilateral end expiratory wheeze, diminished. CVS: S1 and S2 normal with no audible murmur, regular rhythm. ABDOMEN: No hepatosplenomegaly, normal bowel sounds, no guarding or rigidity. SPINE: Kyphoscoliosis SKIN: No rashes CENTRAL NERVOUS SYSTEM: No focal deficits, tone is normal in all 4 extremities. EXTREMITIES: There is no peripheral edema. No clubbing, no cyanosis. Periph eral pulses are intact. - Labs CBC & Chem 7: 07/16/18 07:45 07/18/18 06:34 Labs: Abnormal Lab Results - Last 24 Hours (Table) 07/19/18 07/19/18 07/20/18 Range/Units 16:01 20:54 06:57 POC Glucose (mg/dL) 118 H 123 H 123 H (75-99) mg/dL Assessment and Plan Assessment: Impression: #1 Acute on chronic hypoxemic respiratory failure secondary to an acute exacerbation of chronic obstructive pulmonary disease. #2 Oxygen dependent chronic obstructive pulmonary disease with an FEV1 value of 49% of predicted. #3 Chronic and ongoing tobacco dependence of greater than 50 years. #4 Severe anorexia/cachexia syndrome #5 Poor overall functional performance based on the above-mentioned multiple comorbidities. Plan: The patient was seen and evaluated by Dr. Linda. We will continue with the current treatment plan including bronchodilators, steroids, antibiotics, prom ethazine with codeine. She states she has not smoked since her previous admission. We will continue to follow and make further recommendations based on her clinical status. I, the cosigning physician, performed a history & physical examination of the patient. Lungs sounds bilateral end expiratory wheeze, diminished. Maintaining good O2 saturations in the 90s on 3 L/m. I discussed the assessment and plan of care with my nurse practitioner, Darlene Underwood. I attest to the above consultation as dictated by her.
--- NOTE | 2018-07-20 12:19 | P.PN ---
Subjective 78-year-old female was admitted for COPD exacerbation patient appears to have advanced COPD uses 3 L of oxygen still wheezing still gets easily short of breath with minimal exertion. Still complaining of shortness of breath and cough. There is no evidence of pneumonia Rocephin will be discontinued and we'll cut down the systemic steroids to 40 twice a day. 07/19/2018 No significant improvement in her respiratory status continue with present t reatment. Because of her advanced isn't COPD patient has very slow improvement 07/20/2018 Minimal improvement the in her shortness of breath. Constitutional: Denied any fatigue denied any fever. Cardio vascular: denied any chest pain, palpitations Gastrointestinal denied any nausea vomiting Pulmonary: As mentioned in HPI Neurologic denied any new focal deficits All inpatient medications were reviewed and appropriate changes in these medications as dictated in the interval history and assessment and plan. Objective - Vital Signs Vital signs: Vital Signs Temp 99.3 F 07/20/18 07:26 Pulse 80 07/20/18 11:17 Resp 24 07/20/18 07:26 BP 173/79 07/20/18 07:26 Pulse Ox 94 L 07/20/18 07:26 Intake & Output 07/19/18 07/20/18 07/20/18 18:59 06:59 18:59 Intake Total 800 Balance 800 Weight 51.738 kg Intake: Oral 800 Other: Voiding Method Toilet Toilet # Voids 2 - Exam PHYSICAL EXAMINATION: GENERAL: The patient is alert and oriented x3, not in any acute distress. Thin built female HEENT: Pupils are round and equally reacting to light. EOMI. No scleral icterus. No conjunctival pallor. Normocephalic, atraumatic. No pharyngeal erythema. No thyromegaly. CARDIOVASCULAR: S1 and S2 present. No murmurs, rubs, or gallops. PULMONARY: Wheezing did improve fairly good air entry into bilateral lung atkins. ABDOMEN: Soft, nontender, nondistended, normoactive bowel sounds. No palpable organomegaly. MUSCULOSKELETAL: No joint swelling or deformity. EXTREMITIES: No cyanosis, clubbing, or pedal edema. NEUROLOGICAL: Gross neurological examination did not reveal any focal deficits. SKIN: No rashes. - Labs CBC & Chem 7: 07/16/18 07:45 07/18/18 06:34 Labs: Abnormal Lab Results - Last 24 Hours (Table) 07/19/18 07/19/18 07/20/18 Range/Units 16:01 20:54 06:57 POC Glucose (mg/dL) 118 H 123 H 123 H (75-99) mg/dL Assessment and Plan Plan: -Acute on chronic hypercapnic respiratory failure secondary to COPD exacerbation continue with systemic steroids antibiotics inhalational treatments -COPD with acute exacerbation -Cachexia: Secondary to chronic smoking mild protein calorie malnutrition -Possibly of congestive heart failure chronic diastolic dysfunction with mild acute exacerbation received Lasix. Not on scheduled Lasix. DVT prophylaxis with the subcutaneous heparin twice a day
[2018-07-20 17:08] LABS: Glucose,Whole Blood 105 mg/dL (75-99)
[2018-07-20 21:09] LABS: Glucose,Whole Blood 220 mg/dL (75-99)
[2018-07-21] MEDS: methylPREDNISolone SOD SUCCI 40 MG/ML 1 ML VIAL IV SCH ×2 (00:15→06:17)
[2018-07-21 03:06] VITALS: RESP 16; TEMP 97.5
[2018-07-21 07:32] LABS: Glucose,Whole Blood 121 mg/dL (75-99)
[2018-07-21] MEDS: LORATADINE 10 MG TAB PO SCH (07:45)
[2018-07-21] MEDS: PANTOPRAZOLE 40 MG TABLET PO SCH (07:45)
[2018-07-21] MEDS: guaiFENesin 600 MG TABLET.ER PO SCH (07:45)
[2018-07-21] MEDS: INSULIN ASPART (NovoLOG) 100 UNIT/ML VIAL SQ SCH (07:46)
[2018-07-21] MEDS: HEPARIN SODIUM,PORCINE 5,000 UNIT/ML 1 ML VIAL SQ SCH (07:46)
[2018-07-21] MEDS: AZITHROMYCIN 500 MG TAB PO SCH (07:48)
[2018-07-21] MEDS: BUDESONIDE 1 MG/2 ML NEBU INHALATION SCH (08:41)
[2018-07-21] MEDS: FORMOTEROL FUMARATE 20 MCG/2 ML NEBU INHALATION SCH (08:41)
[2018-07-21] MEDS: IPRATROPIUM-ALBUTEROL 3 ML NEB INHALATION SCH ×2 (08:41→13:08)
--- NOTE | 2018-07-21 09:23 | P.PN ---
Subjective Progress Note Date: 07/21/18 Principal diagnosis: On 07/15/2018 patient seen in follow-up on selective care unit. In the recliner, in no acute distress, currently on 3 L per nasal cannula with pulse ox of 98%, afebrile, hemodynamically stable, she states her breathing is improving, she is less dyspneic, lung sounds are diminished, no wheezing, no rhonchi. She is working on getting stronger, ambulation. Today's labs have been reviewed, no leukocytosis, with little, was 9.0, hemoglobin was 12.7, sodium was 139, potassium is 4.3, BUN was 28 and creatinine is was 0.52. Sputum culture showed Cinthia albicans only. Antibiotic coverage with the Rocephin, IV steroids 60 mg every 6 hours, nebulized bronchodilators On 07/16/2018 patient seen in follow-up on medical surgical floor. This morning patient had a episode of respiratory distress, she was having trouble expectorating secretions, she felt like the phlegm was getting stuck in her throat, she was more dyspneic, more wheezy, she defervesced sounds worse than she did yesterday, she remains on 3 L of oxygen per pulse ox is 95%, she is afebrile, lung sounds are positive for diffuse wheezing on forced expiratory maneuver, her cough was nonproductive. Follow-up chest x-ray was obtained and showed mild diffuse interstitial prominence, small bilateral pleural effusions, and patient will be given a dose of IV Lasix. His labs have been reviewed, and are unremarkable. No leukocytosis, renal profile is within normal limits, no electrolyte abnormality. Sputum culture showed Cinthia albicans only, patient is on empiric antibiotic in the form of Rocephin. On 07/17/2018 patient seen in follow-up on medical surgical floor. States she is breathing a bit better today, still wheezy, still dyspneic. Remains on 3 L of oxygen, off oxygen 91%, afebrile. Patient received a dose of IV Lasix yesterday, and today's chest x-ray shows improvement in the appearance of multiple pleural effusions, high-resolution CT was obtained and showed emphys ematous changes, but no evidence for concerning nodule or mass, no infiltrates, and a small left-sided pleural effusion. His lab work has been reviewed, as showed a sodium of 142, potassium is 3.4, chloride is 103, CO2 31, B1 is 27 creatinine is 0.57, this will be replaced per protocol. We'll continue with IV Solu-Medrol, Zithromax will be added, patient is coughing up some thick phlegm On 07/18/2018 patient seen again in follow-up in medical surgical floor. She remains quite dyspneic with any exertion, and even with conversation, it takes her a while to recover from any activity. She remains on 3 L of oxygen, still having difficulty breathing, bringing up a small amount of yellow-colored mucus, lung sounds are diminished, and there is expiratory wheeze on forced exhale maneuver. It is lab work has been reviewed, BNP was done, sodium was 141, potassium is 4.1, chloride was 105, CO2 was 32, B1 is 29, creatinine was 0.56. Urine culture showed Cinthia albicans only. No other growth. No fever, no chills, patient is a combination of Zithromax and Rocephin, she is on IV steroids, she is maximized on medical treatment, but she is made very little improvement On 07/19/2018 patient seen in follow-up on medical surgical floor. She is still very wheezy, and dyspneic, is difficult for her to clear any phlegm. Her dose of steroids was attempted to be dropped, but the patient seems to be getting worse. Is a 3 L of oxygen, he is afebrile, hemodynamically she stable. No new labs, lung sounds are positive for diffuse wheezes, she is concerned that she may be sent home prematurely and will have to turnaround come back. On 07/21/2018 patient seen in follow-up on medical surgical floor. She is awake and alert, in no acute distress, she states her breathing is finally improving, lung sounds are diminished, with very minimal end expiratory faint wheezing, much improved. Still quite dyspneic with any exertion, she remains on high dose of IV steroids, empiric antibiotics, breathing treatments. No new labs today, no new chest x-rays, no acute events overnight. Objective - Vital Signs Vital signs: Vital Signs Temp 97.5 F L 07/21/18 01:10 Pulse 92 07/21/18 08:59 Resp 16 07/21/18 01:10 BP 142/70 07/21/18 01:10 Pulse Ox 98 05/12/19 01:10 Intake & Output 07/20/18 07/21/18 07/21/18 18:59 06:59 18:59 Weight 51.738 kg Other: Voiding Method Toilet Toilet # Voids 3 1 # Bowel Movements 1 - Exam GENERAL EXAM: Alert, pleasant 78-year-old white female on 3 L of oxygen in no acute distress HEAD: Normocephalic/atraumatic. EYES: Normal reaction of pupils, equal size. Conjunctiva pink, sclera white. NOSE: Clear with pink turbinates. THROAT: No erythema or exudates. NECK: No masses, no JVD, no thyroid enlargement, no adenopathy. CHEST: No chest wall deformity. Symmetrical expansion. LUNGS: Equal air entry with diminished breath sounds with faint end expiratory wheezes, a lot less bronchospastic compared to previous exams CVS: Regular rate and rhythm, normal S1 and S2, no gallops, no murmurs, no rubs ABDOMEN: Soft, nontender. No hepatosplenomegaly, normal bowel sounds, no guarding or rigidity. EXTREMITIES: No clubbing, no edema, no cyanosis, 2+ pulses and upper and lower extremities. MUSCULOSKELETAL: Muscle strength and tone normal. SPINE: No scoliosis or deformity SKIN: No rashes CENTRAL NERVOUS SYSTEM: Alert and oriented -3. No focal deficits, tone is normal in all 4 extremities. PSYCHIATRIC: Alert and oriented -3. Appropriate affect. Intact judgment and insight. - Labs CBC & Chem 7: 07/16/18 07:45 07/18/18 06:34 Labs: Abnormal Lab Results - Last 24 Hours (Table) 07/20/18 07/20/18 07/21/18 Range/Units 16:56 20:56 07:20 POC Glucose (mg/dL) 105 H 220 H 121 H (75-99) mg/dL Assessment and Plan Plan: Assessment: #1 Acute on chronic hypoxemic respiratory failure secondary to an acute exacerbation of chronic obstructive pulmonary disease. #2 Oxygen dependent chronic obstructive pulmonary disease with an FEV1 value of 49% of predicted. #3 Chronic and ongoing tobacco dependence of greater than 50 years. #4 Severe anorexia/cachexia syndrome #5 Poor overall functional performance based on the above-mentioned multiple comorbidities. #6 mild CHF, and bilateral pleural effusions, previously documented normal ejection fraction Plan: We'll cut back the dose of steroids to 40 mg every 8 hours, will continue with the rest of the medical treatment, patient is finally starting to improve, less bronchospastic, still dyspneic with any exertion, she is maintaining good oxygenation on 3 L of oxygen, she has a nebulizer machine at home, oxygen set up. We will see how she tolerates that reduction of steroids today, increase activity. She may possibly be be considered for discharge home later on today or possibly tomorrow if she remains stable. Will need outpatient follow-up with Dr. Linda in the office in 7-10 days. I performed a history & physical examination of the patient and discussed their management with my nurse practitioner, Leni Zarco. I reviewed the nurse practitioner's note and agree with the documented findings and plan of care. Lung sounds are positive for diminished breath sounds at the bases. The findings and the impression was discussed with the patient. I attest to the documentation by the nurse practitioner. Time with Patient: Less than 30
[2018-07-21 09:41] VITALS: BP 162/77
--- NOTE | 2018-07-21 12:08 | P.DS ---
Providers Date of admission: 07/11/18 16:10 Attending physician: Andrew Spring Consults: 07/11/18 16:10 Consult Physician Routine Consulting Provider: Nora Linda Consult Reason/Comments: COPD Do you want consulting provider notified?: Yes Primary care physician: Nora Linda Hospital Course: 78-year-old female was admitted for COPD exacerbation patient appears to have advanced COPD uses 3 L of oxygen still wheezing still gets easily short of breath with minimal exertion. Still complaining of shortness of breath and cough. There is no evidence of pneumonia Rocephin will be discontinued and we'll cut down the systemic steroids to 40 twice a day. 07/19/2018 No significant improvement in her respiratory status continue with present treatment. Because of her advanced isn't COPD patient has very slow improvement 07/20/2018 Minimal improvement the in her shortness of breath. 07/21/2018 Significant improvement shortness of breath wheezing significantly improved. Patient will be discharged today. PHYSICAL EXAMINATION: GENERAL: The patient is alert and oriented x3, not in any acute distress. Thin built female HEENT: Pupils are round and equally reacting to light. EOMI. No scleral icterus. No conjunctival pallor. Normocephalic, atraumatic. No pharyngeal erythema. No thyromegaly. CARDIOVASCULAR: S1 and S2 present. No murmurs, rubs, or gallops. PULMONARY: Wheezing did improve fairly good air entry into bilateral lung atkins. ABDOMEN: Soft, nontender, nondistended, normoactive bowel sounds. No palpable organomegaly. MUSCULOSKELETAL: No joint swelling or deformity. EXTREMITIES: No cyanosis, clubbing, or pedal edema. NEUROLOGICAL: Gross neurological examination did not reveal any focal deficits. SKIN: No rashes. Assessment and Plan Plan: -Acute on chronic hypercapnic respiratory failure secondary to COPD exacerbation -COPD with acute exacerbation -Cachexia: Secondary to chronic smoking mild protein calorie malnutrition from COPD -Possibly of congestive heart failure chronic diastolic dysfunction with mild acute exacerbation received Lasix. Not on scheduled Lasix. Will not require Lasix upon discharge Patient Condition at Discharge: Stable Plan - Discharge Summary Discharge Rx Participant: No New Discharge Prescriptions: New Ipratropium-Albuterol Nebulize [Duoneb 0.5 mg-3 mg/3 ml Soln] 3 ml INHALATION RT-QID #30 ampul.neb Fluticasone Nasal [place] [Flonase Nasal [place]] 2 spr EA NOSTRIL DAILY #1 bottle predniSONE 10 mg PO DAILY #30 tab Budesonide-Formot 160-4.5 Mcg [Symbicort 160-4.5 Mcg Inhaler] 2 puff INHALATION BID #1 inhaler Ranitidine HCl [Zantac] 150 mg PO BID #30 tab Continue guaiFENesin [Mucinex] 600 mg PO Q12HR #60 tablet.er Umeclidinium Brm/Vilanterol Tr [Anoro Ellipta 62.5-25 Mcg INH] 1 puff INHALATION RT-DAILY Loratadine [Claritin] 10 mg PO DAILY Albuterol Inhaler [Ventolin Hfa Inhaler] 1 - 2 puff INHALATION RT-Q4H PRN PRN Reason: Shortness Of Breath Or Wheezing Discontinued Albuterol Nebulized [Ventolin Nebulized] 2.5 mg INHALATION RT-QID PRN 30 Days #1 box PRN Reason: Shortness Of Breath Or Wheezing Discharge Medication List guaiFENesin [Mucinex] 600 mg PO Q12HR #60 tablet.er 12/18/17 [Rx] Albuterol Inhaler [Ventolin Hfa Inhaler] 1 - 2 puff INHALATION RT-Q4H PRN 07/11/18 [History] Loratadine [Claritin] 10 mg PO DAILY 07/11/18 [History] Umeclidinium Brm/Vilanterol Tr [Anoro Ellipta 62.5-25 Mcg INH] 1 puff INHALATION RT-DAILY 07/11/18 [History] Budesonide-Formot 160-4.5 Mcg [Symbicort 160-4.5 Mcg Inhaler] 2 puff INHALATION BID #1 inhaler 07/21/18 [Rx] Fluticasone Nasal [place] [Flonase Nasal [place]] 2 spr EA NOSTRIL DAILY #1 bottle 07/21/18 [Rx] Ipratropium-Albuterol Nebulize [Duoneb 0.5 mg-3 mg/3 ml Soln] 3 ml INHALATION RT-QID #30 ampul.neb 07/21/18 [Rx] Ranitidine HCl [Zantac] 150 mg PO BID #30 tab 07/21/18 [Rx] predniSONE 10 mg PO DAILY #30 tab 07/21/18 [Rx] Follow up Appointment(s)/Referral(s): Nora Linda MD [Primary Care Provider] - 3 Days [facility], [NON-STAFF] - Patient Instructions/Handouts: COPD (Chronic Obstructive Pulmonary Disease) (DC) Discharge Disposition: HOME WITH HOME HEALTH SERVICES
[2018-07-21 12:23] LABS: Glucose,Whole Blood 98 mg/dL (75-99)
[2018-07-21 13:15] VITALS: PULSE 96
[2018-07-21] MEDS ORDERED: methylPREDNISolone SOD SUCCI 40 MG/ML 1 ML VIAL IV SCH (16:00)
--- NOTE | 2018-07-22 13:01 | CDI ---
Documentation Clarification Form Date: 07/22/2018 12:51:38 PM From: Natty Gage Phone: If you have a question about this query, please contact Albertina Crook Thread Milling Machine Set Up Operator at [phone] between 8am and 5pm. Admit Date: 07/11/2018 4:10:00 PM Patient Name: Chelsea Bland Visit Number: [id number] Discharge Date: 07/21/2018 1:39:00 PM ATTENTION: The Clinical Documentation Specialists (CDI) and [facility] Coding Staff appreciate your assistance in clarifying documentation. Please respond to the clarification below the line at the bottom and electronically sign. The CDI & [facility] Coding staff will review the response and follow-up if needed. Please note: Queries are made part of the Legal Health Record. If you have any questions, please contact the author of this message via ITS. Dr. Misael Booth Conflicting documentation has been found in the medical record: H and P, pulmonary consult both document severe PCM. DCS documents mild PCM. Please clarify. History/Risk Factors: COPD, oxygen dependent, BMI 18.4 Clinical Indicators: documentation of severe anorexia, cachexia In your opinion, what is the most clinically appropriate diagnosis for this patient? Other explanation of clinical findings mild protein calorie malnutrition severe protein calorie malnutrition. Unable to determine (no explanation for clinical findings) no malnutrition MTDD
== END 2018-07-21 13:39 | disposition home health service (06) | DRG 190 ==
LOC: EC 15:00 → 3SCARD 16:10 → 4SSUR 07-15 14:52
PROVIDERS: ADMIT Hospitalist; ATTEND Hospitalist
PROC: 5A09357 Assistance with Respiratory Ventilation, Less than 24 Consecutive Hours, Continuous Positive Airway Pressure (ICD-10-PCS; principal; 2018-07-11)
DX: J44.1 Chronic obstructive pulmonary disease with (acute) exacerbation (principal); J96.21 Acute and chronic respiratory failure with hypoxia; J96.22 Acute and chronic respiratory failure with hypercapnia; I50.31 Acute diastolic (congestive) heart failure; R64 Cachexia; Z68.1 Body mass index [BMI] 19.9 or less, adult; J44.0 Chronic obstructive pulmonary disease with (acute) lower respiratory infection; J20.9 Acute bronchitis, unspecified; Z71.6 Tobacco abuse counseling; F17.210 Nicotine dependence, cigarettes, uncomplicated; Z80.52 Family history of malignant neoplasm of bladder; Z82.49 Family history of ischemic heart disease and other diseases of the circulatory system; Z83.3 Family history of diabetes mellitus; Z87.01 Personal history of pneumonia (recurrent); H26.9 Unspecified cataract; Z90.49 Acquired absence of other specified parts of digestive tract; Z99.81 Dependence on supplemental oxygen; R73.9 Hyperglycemia, unspecified
CPT/HCPCS: 36415; 71045; 71250; 80048; 80053; 83735; 83880; 84484; 85025; 85610; 85730; 87070; 87205; 93005; 94640; 94660; 94760; 96365; 96367; 96375; 99291

== ENCOUNTER 2019-06-27 23:10 | Inpatient (IN) | payer MEDICARE, BC ==
[2019-06-27] MEDS ORDERED: IPRATROPIUM-ALBUTEROL 3 ML NEB INHALATION STA (23:20)
[2019-06-27] MEDS ORDERED: methylPREDNISolone SOD SUCCI 125 MG/2 ML VIAL IV STA (23:21)
--- NOTE | 2019-06-27 23:49 | ED ---
SOB HPI - General Chief Complaint: Shortness of Breath Stated Complaint: Diff Breathing Time Seen by Provider: 06/27/19 23:20 Source: EMS, RN notes reviewed, old records reviewed Mode of arrival: EMS - History of Present Illness Initial Comments: This is a 79-year-old female DF for evaluation presents today for evaluation regards to cough congestion and shortness of breath severe shortness of breath, patient is COPD on home O2. Denying fevers or travel history. Patient has significantly increasing shortness of breath especially when off her oxygen and stress with activity, per EMS patient did desat when moving from [facility] exchanging oxygen supply. Patient herself denying pain but having chronic cough for the plantar she can't catch her breath MD Complaint: shortness of breath, anxiety -: hour(s) Severity: severe Severity scale (1-10): 8 Quality: aching Consistency: intermittent Improves With: oxygen, bronchodilators, upright position Worsens With: exertion Known History Of: COPD, recurrent pneumonia Context: recent URI Associated Symptoms: pain with inspiration, cough, sputum production Treatments Prior to Arrival: oxygen, bronchodilator - Related Data Home Medications Medication Instructions Recorded Confirmed Albuterol Inhaler (Bulk) [Ventolin 1 - 2 puff INHALATION RT-Q4H PRN 07/11/18 07/11/18 Hfa Inhaler (Bulk)] Loratadine [Claritin] 10 mg PO DAILY 07/11/18 07/11/18 Umeclidinium Brm/Vilanterol Tr 1 puff INHALATION RT-DAILY 07/11/18 07/11/18 [Anoro Ellipta 62.5-25 Mcg INH] Previous Rx's Medication Instructions Recorded guaiFENesin [Mucinex] 600 mg PO Q12HR #60 tablet.er 12/18/17 Budesonide-Formot 160-4.5 Mcg 2 puff INHALATION BID #1 inhaler 07/21/18 [Symbicort 160-4.5 Mcg Inhaler] Fluticasone Nasal [place] [Flonase 2 spr EA NOSTRIL DAILY #1 bottle 07/21/18 Nasal [place]] Ipratropium-Albuterol Nebulize 3 ml INHALATION RT-QID #30 07/21/18 [Duoneb 0.5 mg-3 mg/3 ml Soln] ampul.neb Ranitidine HCl [Zantac] 150 mg PO BID #30 tab 07/21/18 predniSONE 10 mg PO DAILY #30 tab 07/21/18 Allergies Allergy/AdvReac Type Severity Reaction Status Date / Time No Known Allergies Allergy Verified 07/11/18 15:04 Review of Systems ROS Statement: Those systems with pertinent positive or pertinent negative responses have been documented in the HPI. ROS Other: All systems not noted in ROS Statement are negative. Past Medical History Past Medical History: COPD, Pneumonia, Respiratory Disorder Additional Past Medical History / Comment(s): cataracts(sx done), "bruises easily-thin fragile skin", lower dental bridge. History of Any Multi-Drug Resistant Organisms: None Reported Past Surgical History: Appendectomy, Tonsillectomy Additional Past Surgical History / Comment(s): Bilateral cataracts Past Anesthesia/Blood Transfusion Reactions: No Reported Reaction Past Psychological History: No Psychological Hx Reported Smoking Status: Former smoker Past Alcohol Use History: None Reported Past Drug Use History: None Reported - Past Family History Mother Family Medical History: Myocardial Infarction ([place]) Additional Family Medical History / Comment(s): Mother from a ruptured brain aneurysm, history of a heart attack Father Family Medical History: Diabetes Mellitus Additional Family Medical History / Comment(s): "heart problems" Father from bladder cancer , General Exam General appearance: alert, anxious, in distress Head exam: Present: atraumatic, normocephalic, normal inspection Eye exam: Present: normal appearance, PERRL, EOMI. Absent: scleral icterus, conjunctival injection, periorbital swelling ENT exam: Present: normal exam, mucous membranes dry Neck exam: Present: normal inspection. Absent: tenderness, meningismus, lymphadenopathy Respiratory exam: Present: respiratory distress, wheezes, accessory muscle use, decreased breath sounds, prolonged expiratory. Absent: rales, rhonchi, stridor Cardiovascular Exam: Present: normal rhythm, tachycardia, normal heart sounds. Absent: systolic murmur, diastolic murmur, rubs, gallop, clicks GI/Abdominal exam: Present: soft, normal bowel sounds. Absent: distended, tenderness, guarding, rebound, rigid Extremities exam: Present: normal inspection, full ROM, normal capillary refill. Absent: tenderness, pedal edema, joint swelling, calf tenderness Back exam: Present: normal inspection Neurological exam: Present: alert, oriented X3, CN II-XII intact Psychiatric exam: Present: normal affect, normal mood Skin exam: Present: warm, dry, intact, normal color. Absent: rash Course Vital Signs 06/27/19 06/27/19 06/27/19 23:13 23:19 23:28 Temperature 97.9 F Pulse Rate 114 H 103 H Respiratory 34 H 34 H 24 Rate Blood Pressure 169/110 O2 Sat by Pulse 100 Oximetry 06/27/19 06/28/19 06/28/19 23:40 00:00 00:12 Temperature Pulse Rate 104 H 103 H Respiratory 24 26 H 28 H Rate Blood Pressure 139/91 O2 Sat by Pulse 100 99 Oximetry - Reevaluation(s) Reevaluation #1: 06/28/19 00:23 Medical records reviewed Reevaluation #2: 06/28/19 00:23 Patient is significantly improved here in the ER - Consultations Consultation #1: Dr. Laura paez patient admission Medical Decision Making - Medical Decision Making 71 female in [facility] for a stress secondary to COPD and significant hypoxia patient to be admitted for breathing treatments, continued hydration symptom management. Chest x-ray is negative for no acute disease - Lab Data Result diagrams: 06/27/19 23:35 06/27/19 23:35 Lab Results 06/27/19 06/27/19 06/27/19 Range/Units 23:35 23:35 23:35 WBC 7.2 (3.8-10.6) k/uL RBC 4.88 (3.80-5.40) m/uL Hgb 14.1 (11.4-16.0) gm/dL Hct 43.6 (34.0-46.0) % MCV 89.3 (80.0-100.0) fL MCH 28.9 (25.0-35.0) pg MCHC 32.4 (31.0-37.0) g/dL RDW 13.4 (11.5-15.5) % Plt Count 206 (150-450) k/uL Neutrophils % 64 % Lymphocytes % 20 % Monocytes % 7 % Eosinophils % 5 % Basophils % 1 % Neutrophils # 4.6 (1.3-7.7) k/uL Lymphocytes # 1.4 (1.0-4.8) k/uL Monocytes # 0.5 (0-1.0) k/uL Eosinophils # 0.4 (0-0.7) k/uL Basophils # 0.1 (0-0.2) k/uL PT 10.5 (9.0-12.0) sec INR 1.0 (<1.2) APTT 22.7 (22.0-30.0) sec Sodium 140 (137-145) mmol/L Potassium 3.9 (3.5-5.1) mmol/L Chloride 104 (98-107) mmol/L Carbon Dioxide 26 (22-30) mmol/L Anion Gap 10 mmol/L BUN 20 H (7-17) mg/dL Creatinine 0.69 (0.52-1.04) mg/dL Est GFR (CKD-EPI)AfAm >90 (>60 ml/min/1.73 sqM) Est GFR (CKD-EPI)NonAf 84 (>60 ml/min/1.73 sqM) Glucose 115 H (74-99) mg/dL Plasma Lactic Acid Andres (0.7-2.0) mmol/L Calcium 9.8 (8.4-10.2) mg/dL Magnesium 1.8 (1.6-2.3) mg/dL Total Bilirubin 0.7 (0.2-1.3) mg/dL AST 26 (14-36) U/L ALT 15 (4-34) U/L Alkaline Phosphatase 61 (38-126) U/L Total Protein 7.5 (6.3-8.2) g/dL Albumin 4.6 (3.5-5.0) g/dL 06/27/19 Range/Units 23:35 WBC (3.8-10.6) k/uL RBC (3.80-5.40) m/uL Hgb (11.4-16.0) gm/dL Hct (34.0-46.0) % MCV (80.0-100.0) fL MCH (25.0-35.0) pg MCHC (31.0-37.0) g/dL RDW (11.5-15.5) % Plt Count (150-450) k/uL Neutrophils % % Lymphocytes % % Monocytes % % Eosinophils % % Basophils % % Neutrophils # (1.3-7.7) k/uL Lymphocytes # (1.0-4.8) k/uL Monocytes # (0-1.0) k/uL Eosinophils # (0-0.7) k/uL Basophils # (0-0.2) k/uL PT (9.0-12.0) sec INR (<1.2) APTT (22.0-30.0) sec Sodium (137-145) mmol/L Potassium (3.5-5.1) mmol/L Chloride (98-107) mmol/L Carbon Dioxide (22-30) mmol/L Anion Gap mmol/L BUN (7-17) mg/dL Creatinine (0.52-1.04) mg/dL Est GFR (CKD-EPI)AfAm (>60 ml/min/1.73 sqM) Est GFR (CKD-EPI)NonAf (>60 ml/min/1.73 sqM) Glucose (74-99) mg/dL Plasma Lactic Acid Anders 1.3 (0.7-2.0) mmol/L Calcium (8.4-10.2) mg/dL Magnesium (1.6-2.3) mg/dL Total Bilirubin (0.2-1.3) mg/dL AST (14-36) U/L ALT (4-34) U/L Alkaline Phosphatase (38-126) U/L Total Protein (6.3-8.2) g/dL Albumin (3.5-5.0) g/dL - EKG Data -: EKG Interpreted by Me (EKG shows sinus tachycardia rate of 106,OK 158, QRS 82, QTC 475) - Radiology Data Radiology results: report reviewed (Chest x-ray is negative, old COPD no changes), image reviewed Critical Care Time Critical Care Time: Yes Total Critical Care Time: 31 Disposition Clinical Impression: Acute exacerbation of chronic obstructive airways disease, Hypoxemia, Smoking Disposition: ADMITTED IP TO THIS HOSP Condition: Serious Is patient prescribed a controlled substance at d/c from ED?: No Referrals: Sadie Perez DO [Primary Care Provider] - 1-2 days
[2019-06-27 23:58] LABS: Basophils # (A) 0.1 k/uL (0-0.2); Basophils % (A) 1 %; Eosinophils # (A) 0.4 k/uL (0-0.7); Eosinophils % (A) 5 %; HCT 43.6 % (34.0-46.0); HGB 14.1 gm/dL (11.4-16.0); Lymphocytes # (A) 1.4 k/uL (1.0-4.8); Lymphocytes % (A) 20 %; MCH 28.9 pg (25.0-35.0); MCHC 32.4 g/dL (31.0-37.0); MCV 89.3 fL (80.0-100.0); Mean Platelet Volume 7.4; Monocytes # (A) 0.5 k/uL (0-1.0); Monocytes % (A) 7 %; Neutrophils # (A) 4.6 k/uL (1.3-7.7); Neutrophils % (A) 64 %; Platelet Count 206 k/uL (150-450); RBC 4.88 m/uL (3.80-5.40); RDW 13.4 % (11.5-15.5); WBC 7.2 k/uL (3.8-10.6)
[2019-06-28 00:03] LABS: Partial Thromboplastin Time 22.7 sec (22.0-30.0); Prothrombin Time 10.5 sec (9.0-12.0)
--- NOTE | 2019-06-28 00:04 | XR ---
EXAMINATION TYPE: XR chest 1V portable DATE OF EXAM: 06/27/2019 COMPARISON: 07/17/2018 HISTORY: Short of breath TECHNIQUE: Single view FINDINGS: There is pulmonary hyperinflation with flattening of the diaphragm. Thoracic aorta is ather omatous. There is mild coarsening of interstitial markings. Heart size is normal. Bony thorax is inta ct. IMPRESSION: COPD. No acute lung disease. Mild fibrotic changes. There is clearing of the pleural reac tion and fluid at the lung bases compared to old exam. No heart failure.
[2019-06-28] MEDS ORDERED: MORPHINE SULFATE 2 MG/ML SYRINGE IVP STA (00:06)
[2019-06-28 00:14] LABS: ALT 15 U/L (4-34); AST 26 U/L (14-36); African American GFR (CKD) >90 (>60 ml/min/1.73 sqM); Albumin 4.6 g/dL (3.5-5.0); Alkaline Phosphatase 61 U/L (38-126); Anion Gap 10 mmol/L; Blood Urea Nitrogen 20 mg/dL (7-17); Calcium 9.8 mg/dL (8.4-10.2); Carbon Dioxide 26 mmol/L (22-30); Chloride 104 mmol/L (98-107); Glucose 115 mg/dL (74-99); Magnesium 1.8 mg/dL (1.6-2.3); Non-African American GFR(CKD) 84 (>60 ml/min/1.73 sqM); Potassium 3.9 mmol/L (3.5-5.1); Sodium 140 mmol/L (137-145); Total Bilirubin 0.7 mg/dL (0.2-1.3); Total Protein 7.5 g/dL (6.3-8.2)
[2019-06-28] MEDS ORDERED: SODIUM CHLORIDE 0.9% 500 ML 500 ML IV STA (00:21)
[2019-06-28] MEDS ORDERED: MORPHINE SULFATE 2 MG/ML SYRINGE IVP PRN (00:21)
[2019-06-28] MEDS ORDERED: SODIUM CHLORIDE 0.9% 1,000 ML IV STA (00:21)
[2019-06-28] MEDS ORDERED: AZITHROMYCIN 500 MG in SODIUM CHLORIDE 0.9% 250 ML IVPB ONE (00:30)
[2019-06-28] MEDS: SODIUM CHLORIDE 0.9% 1,000 ML IV SCH ×3 (02:17→20:40)
[2019-06-28] MEDS: IPRATROPIUM-ALBUTEROL 3 ML NEB INHALATION SCH ×4 (08:00→19:45)
[2019-06-28] MEDS ORDERED: ALBUTEROL NEBULIZED 2.5 MG/3 ML INHALATION SCH (08:00)
[2019-06-28] MEDS: ENOXAPARIN 40 MG/0.4 ML SYRINGE SQ SCH (09:32)
[2019-06-28] MEDS: LORATADINE 10 MG TAB PO SCH (09:34)
[2019-06-28] MEDS: methylPREDNISolone SOD SUCCI 40 MG/ML 1 ML VIAL IV SCH ×3 (12:02→22:34)
--- NOTE | 2019-06-28 15:23 | CONS ---
CONSULTATION PULMONARY/CRITICAL CARE CONSULTATION: DATE OF SERVICE: 06/28/2019 REASON FOR CONSULTATION: COPD exacerbation. A 79-year-old female who sees a primary Care physician out in [place]. She sees one of our nurse practitioners in the office for her severe oxygen-dependent COPD. She apparently presented to the emergency department with complaints of increasing shortness of breath for a couple of days prior to admission. In addition, she had some cough and chest congestion. No fever. No chills. No recent exposure to anybody with COVID-19 infection. Because she was not improving, she came into the emergency room to be evaluated. Her saturations were dropping. She denied any chest pain or chest discomfort. She really was not coughing up much or any phlegm. Again, there was no fever or chills. She denies any nausea, vomiting, diarrhea, or abdominal pain. She denied any genitourinary complaints. She felt like it was her COPD that was acting up. Chest x-ray showed just significant COPD. There is nothing acute on chest x-ray. She received steroids and bronchodilators in the emergency room and she was admitted to the hospital. She is already starting to feel better. HOME MEDICATIONS: Include Ventolin inhaler, Claritin, Anoro which is a combination of long-acting beta agonist/long-acting muscarinic antagonist, Mucinex, Symbicort, Flonase, DuoNeb, ranitidine, and prednisone 10 mg daily. ALLERGIES: Denied. PAST MEDICAL HISTORY: Positive for primarily COPD, pneumonia, chronic hypoxemic respiratory failure. She also has a history of cataracts. She has thin skin and bruises easily, probably from chronic steroid use. SURGICAL HISTORY: Includes appendectomy and tonsillectomy. She has also had bilateral cataract surgery. SOCIAL HISTORY: Positive for previous tobacco use. She is a heavy smoker. Smoked for probably 50+ years. Denies any alcohol or illicit drug use. FAMILY HISTORY: Positive for a mother with previous myocardial infarction, a brain aneurysm and a father with a history of diabetes mellitus and bladder cancer. REVIEW OF SYSTEMS: CONSTITUTIONAL: Negative. NEUROLOGIC: Negative. HEENT: Negative. CARDIOVASCULAR: Negative. PULMONARY: Shortness of breath, chest tightness, nonproductive cough, wheezing. GI: Negative. : Negative. RHEUMATOLOGIC: Negative. IMMUNOLOGIC: negative. ENDOCRINOLOGIC: Negative. DERMATOLOGIC: Negative. Current vital signs are reviewed, they include a temperature of 98.1, heart rate 98, respiratory rate 20, blood pressure 133/71 mean 91, saturations on 7 L of oxygen 100%. Appears in no acute distress but she is mildly tachypneic. Mild conversational dyspnea. No audible wheezing or use of accessory muscles. HEENT: Examination is grossly unremarkable. Nasal O2 in place. NECK: Supple. She does have some hypertrophied sternocleidomastoid muscles. No adenopathy or thyromegaly. Neck veins are flat. CARDIOVASCULAR: Examination reveals regular rhythm and rate. Heart rate about mid 90s. S1, S2 normal. She is in sinus rhythm in my opinion. No murmur. LUNGS: Reveal severely diminished breath sounds. She does have some mild expiratory wheezes and rhonchi. There is prolongation on expiratory phase. No crackles. ABDOMEN: Scaphoid. Bowel sounds are heard. EXTREMITIES: Intact. No edema. SKIN: Reveals multiple areas of ecchymoses. NEUROLOGIC: Examination is brief but nonfocal. Chest x-ray is consistent with COPD. No acute abnormality noted. LABS: Reviewed. CBC is completely normal. PT, INR normal, PTT normal. Sodium 140, potassium 3.9, chloride 104, CO2 is 26, anion gap is 10, BUN and creatinine were 20 and 0.69. The rest of the comprehensive metabolic profile including troponin and N terminal proBNP levels are normal. Medications are reviewed. She is currently on Zithromax, Pulmicort 1 mg, enoxaparin, formoterol, DuoNeb, loratadine, Solu-Medrol, morphine, and a basic IV. ASSESSMENT: 1. Chronic obstructive pulmonary disease exacerbation. 2. History of long-standing severe chronic obstructive pulmonary disease. 3. Chronic hypoxemic respiratory failure. 4. Previous history of pneumonia. 5. History of cataracts. PLAN: The patient was placed on DuoNeb q.i.d. and p.r.n. I also gave her Solu-Medrol 40 mg q.6 and Pulmicort 1 mg mixed with formoterol 20 mcg twice a day. She is already on an oral antibiotic. She can just take that for a couple of days. No additional recommendations are made. Prognosis is guarded. She should hopefully only be in the hospital for a couple days. She is already starting to feel better. Prognosis again is guarded. MMODL / IJN: [id number] /
--- NOTE | 2019-06-28 17:14 | HP ---
HISTORY AND PHYSICAL 79-year-old female, evaluation of cough, congestion and shortness of breath. The patient has COPD on home O2, increasing shortness of breath. For the past few days, she has not been around sick people or Covid. She gets frequently admitted for COPD exacerbation. She cannot catch her breath at rest, 8 out of 10 in severity despite oxygen and bronchodilators. She has history of COPD and recurrent pneumonia. Pulmonology has been ordered. HOME MEDICATIONS: Include Claritin, Anora Ellipta, Ventolin HFA. ALLERGIES: Negative. REVIEW OF SYSTEMS: Fourteen-point review of systems negative except for in HPI. PAST MEDICAL HISTORY: COPD, recurrent pneumonia, history of cataracts. SURGERIES: Appendectomy, tonsillectomy, former smoker. PAST FAMILY HISTORY: Mother myocardial infarction. Father, diabetes mellitus, heart problems. PHYSICAL EXAMINATION: CONSTITUTIONAL: She is thin, cachectic, clearly out of breath at rest. HEENT: Pupils equal, round, reactive. She looks her stated age. LUNGS are very poor breath sounds x4 lung atkins. Wheezes x4. Accessory muscle use. HEART: S1, S2. Tachycardic. Possibly a 1 to 2/6 systolic ejection murmur. ABDOMEN is soft. No mass. EXTREMITIES: No pedal edema, swelling in the calves is negative. NEUROLOGIC: Cranial nerves are intact. PSYCH: Fair mood and affect. SKIN: A lot of wrinkling for stated age. VITAL SIGNS: Temperature 97.9, heart rate 103 to 114, blood pressure is 169/100, O2 saturation 99-100 on oxygen. ASSESSMENT AND PLAN: 1. Chronic obstructive pulmonary disease exacerbation. 2. Significant hypoxemia. 3. Admitted for hydration and breathing treatments. 4. Possibly some IV steroids, IV antibiotics. 5. Prognosis extremely guarded. 6. Pulmonology will re-evaluate the patient too. 7. Please see further orders. MMODL / IJN: [id number] /
[2019-06-28] MEDS ORDERED: BUDESONIDE 1 MG/2 ML NEBU INHALATION SCH (20:00)
[2019-06-28] MEDS ORDERED: FORMOTEROL FUMARATE 20 MCG/2 ML NEBU INHALATION SCH (20:00)
[2019-06-28] MEDS ORDERED: AZITHROMYCIN 500 MG in SODIUM CHLORIDE 0.9% 250 ML IVPB SCH (22:00)
[2019-06-29] MEDS: methylPREDNISolone SOD SUCCI 40 MG/ML 1 ML VIAL IV SCH ×3 (05:47→16:49)
[2019-06-29] MEDS: SODIUM CHLORIDE 0.9% 1,000 ML IV SCH (05:50)
[2019-06-29] MEDS ORDERED: TIOTROPIUM 18 MCG/PUFF INHALER INHALATION SCH (08:00)
[2019-06-29] MEDS: ALBUTEROL HFA INHALER INHALATION SCH ×4 (08:09→19:47)
[2019-06-29] MEDS: SYMBICORT 160-4.5 MCG INHALER INHALATION SCH ×2 (08:09→19:47)
[2019-06-29] MEDS: guaiFENesin 600 MG TABLET.ER PO SCH ×2 (10:01→20:36)
[2019-06-29] MEDS: BENZONATATE 100 MG CAP PO SCH ×3 (10:01→20:36)
[2019-06-29] MEDS: LORATADINE 10 MG TAB PO SCH (10:01)
[2019-06-29] MEDS: ALPRAZolam 0.5 MG TAB PO PRN (10:01)
[2019-06-29] MEDS: ENOXAPARIN 40 MG/0.4 ML SYRINGE SQ SCH (10:01)
--- NOTE | 2019-06-29 12:06 | P.PN ---
Subjective Progress Note Date: 06/29/19 Principal diagnosis: This is a 79-year-old female who a primary care physician in [place] on an outpatient basis. She also follows with Darlene Underwood DNP from pulmonary medicine for her severe oxygen dependent COPD. She presented to the emergency department with complaints of increasing shortness of breath for a couple of days prior to her admission. In addition, she had some cough and chest congestion. She denies any fever, chills, nausea, vomiting, diarrhea, abdominal pain or recent exposure to anybody with COVID 19 infection. Because she was not improving, she came into the emergency room to be evaluated. Her oxygen saturations were dropping and she denied any chest pain or chest discomfort. She reports she was not coughing up much or any phlegm. She felt like it was her COPD that was acting up. A chest x-ray was completed and showed significant COPD. There is nothing acute on her chest x-ray. She receives steroids and bronchodilators in the emergency department and she was admitted to the hospital for further evaluation and workup. She reports she is already starting to feel better. She was seen today on 06/29/2019 in follow-up on the cardiac stepdown unit. She is resting comfortably on the bedside edge, and is in no acute distress. She is hemodynamically stable. She has been afebrile the last 24 hours and her oxygen saturations are 96% on 4 L nasal cannula. Denies any complaints of pain and reports that her shortness of breath seems improved today. She did not have her repeat chest x-ray completed today and there are no new lab results today. Her blood culture show no growth after 24 hours. She remains on azithromycin for her Antibiotic coverage and she is on Solu-Medrol 40 mg IV every 6 hours. Remote telemetry showing normal sinus rhythm heart rate 65. Objective - Vital Signs Vital signs: Vital Signs Temp 98.2 F 06/29/19 04:05 Pulse 90 06/29/19 04:05 Resp 20 06/29/19 04:05 BP 139/76 06/29/19 04:05 Pulse Ox 96 06/29/19 04:05 Intake & Output 06/28/19 06/29/19 06/29/19 18:59 06:59 18:59 Intake Total 1720 Output Total 800 1 Balance 920 -1 Weight 44.1 kg 43.5 kg Intake: Intake, IV Titration 1400 Amount Sodium Chloride 0.9% 1, 1400 000 ml @ 100 mls/hr IV . Q10H RUBIN Rx#:[id number] Blood Product 320 Output: Urine 800 Stool 1 Other: # Voids 1 - Exam This is a 79-year-old female patient who is resting comfortably on the bedside edge. She is in no acute distress. Oxygen saturations are 96% on 4 L nasal cannula. - Constitutional General appearance: Present: cooperative, no acute distress, thin - EENT Eyes: Present: PERRLA, normal appearance. Absent: scleral icterus ENT: Present: hearing grossly normal - Neck Details: Neck is supple, no lymphadenopathy. No JVD. - Respiratory Details: Lung sounds are severely diminished throughout. Some scattered expiratory wheezes. Respirations are symmetrical and nonlabored. - Cardiovascular Details: Regular rhythm and rate. S1 and S2 present, negative for S3, gallop or murmur. - Gastrointestinal Gastrointestinal Comment(s): Abdomen is soft, nontender and nondistended. Active bowel sounds present in all 4 abdominal quadrants. No guarding or rigidity. No organomegaly appreciated. - Integumentary Integumentary Comment(s): Skin is warm and dry. Multiple scattered areas of ecchymosis. - Neurologic Neurologic: Present: CNII-XII intact - Musculoskeletal Musculoskeletal: Present: gait normal, generalized weakness, strength equal bilaterally - Psychiatric Psychiatric: Present: A&O x's 3, appropriate affect, intact judgment & insight - Allied health notes Allied health notes reviewed: nursing - Labs CBC & Chem 7: 06/27/19 23:35 06/27/19 23:35 Labs: Microbiology - Last 24 Hours (Table) 06/27/19 23:34 Blood Culture - Preliminary Blood No Growth after 24 hours Assessment and Plan Assessment: 1. Chronic obstructive pulmonary disease exacerbation 2. History of long-standing severe chronic obstructive pulmonary disease 3. Previous history of pneumonia 4. History of cataracts Plan: 1. The patient was seen and examined at her bedside with Dr. Hauser. 2. Wean oxygen as tolerated to keep her oxygen saturations greater than or equal to 92%. She is currently on 4 L nasal cannula in her home oxygen dose is 3 L nasal cannula. 3. Continue Solu-Medrol 40 mg IV every 6 hours and Pulmicort 1 mg mixed with formoterol 20 g twice a day. 4. Discontinue 0.9% normal saline, saline lock IV. 5. Encourage use of her incentive spirometry every hour while awake. 6. More recommendations to follow based on patient's clinical course. I, the cosigning physician, performed a history and physical examination on the patient. Lungs diminished with some scattered expiratory wheezes and maintaining O2 saturation in the 90s on 4 L nasal cannula. I discussed the plan and assessment of care with Faheem Vásquez CODING MACHINE OPERATOR. I attest that the above note is dictated by him. Time with Patient: Less than 30
[2019-06-29] MEDS: guaiFENesin SYRUP 100MG/5ML 200 MG/10 ML CUP PO PRN (16:53)
[2019-06-29] MEDS: AZITHROMYCIN 500 MG TAB PO SCH (20:36)
--- NOTE | 2019-06-29 23:45 | PN ---
PROGRESS NOTE The patient had severe hypertension acceleration, nonstop cough today. Tessalon Perles and blood pressure medicines have been ordered. IV Solu-Medrol still intact as well as Tessalon Perles, Xanax for anxiety, updraft treatments. CARDIOVASCULAR: S1, S2. LUNGS: Show scattered rhonchi and wheeze. HEMATOLOGY: Negative Homans. PSYCH: Fair mood and affect. ASSESSMENT: 1. Acute hypoxemic respiratory distress. 2. Tracheobronchitis. Tessalon Perles for cough have been ordered. Anxiety medicines is helping her calm down and affecting her cough. Continue with current treatment. Await for Pulmonary recommendations. Follow up in next 24 to 48 hours. Prognosis guarded. MMODL / IJN: [id number] /
[2019-06-30] MEDS: methylPREDNISolone SOD SUCCI 40 MG/ML 1 ML VIAL IV SCH ×5 (00:02→23:03)
[2019-06-30] MEDS: TIOTROPIUM 18 MCG/PUFF INHALER INHALATION SCH (07:43)
[2019-06-30] MEDS: SYMBICORT 160-4.5 MCG INHALER INHALATION SCH ×2 (07:43→19:54)
[2019-06-30] MEDS: ALBUTEROL HFA INHALER INHALATION SCH ×4 (07:43→19:54)
[2019-06-30] MEDS: BENZONATATE 100 MG CAP PO SCH ×3 (09:23→20:56)
[2019-06-30] MEDS: LORATADINE 10 MG TAB PO SCH (09:23)
[2019-06-30] MEDS: guaiFENesin 600 MG TABLET.ER PO SCH ×2 (09:23→20:56)
[2019-06-30] MEDS: ENOXAPARIN 40 MG/0.4 ML SYRINGE SQ SCH (09:23)
--- NOTE | 2019-06-30 11:20 | P.PN ---
Subjective Progress Note Date: 06/30/19 Principal diagnosis: Acute exacerbation of chronic obstructive pulmonary, Covid 19 infection has been ruled out On 06/30/2019 patient seen in follow-up selective care unit, she is awake and alert, in no acute distress, she is currently on 5 L of oxygen with a pulse ox of 96% which can probably be further weaned. She is afebrile, vital signs are stable. Patient is on IV steroids, updraft treatments, Tessalon Perles. Her Covid 19 test was negative. Her chest x-ray on admission showed no acute lung disease. Mild tachypnea, but no acute distress. Lung sounds are diminished physical exam. Objective - Vital Signs Vital signs: Vital Signs Temp 98 F 06/30/19 09:15 Pulse 84 06/30/19 09:15 Resp 22 06/30/19 09:15 BP 177/88 06/30/19 09:15 Pulse Ox 96 06/30/19 09:15 Intake & Output 06/29/19 06/30/19 06/30/19 18:59 06:59 18:59 Intake Total 900 240 Output Total 1 400 100 Balance -1 500 140 Intake: Oral 900 240 Output: Urine 400 100 Stool 1 Other: # Voids 1 1 - Exam GENERAL EXAM: Alert, very pleasant, cachectic 79-year-old white female, on 5 L of oxygen with a pulse ox of 96%, comfortable in no apparent distress. HEAD: Normocephalic/atraumatic. EYES: Normal reaction of pupils, equal size. Conjunctiva pink, sclera white. NOSE: Clear with pink turbinates. THROAT: No erythema or exudates. NECK: No masses, no JVD, no thyroid enlargement, no adenopathy. CHEST: No chest wall deformity. Symmetrical expansion. LUNGS: Diminished air entry with no crackles, wheeze, rhonchi or dullness. CVS: Regular rate and rhythm, normal S1 and S2, no gallops, no murmurs, no rubs ABDOMEN: Soft, nontender. No hepatosplenomegaly, normal bowel sounds, no guarding or rigidity. EXTREMITIES: No clubbing, no edema, no cyanosis, 2+ pulses and upper and lower extremities. MUSCULOSKELETAL: Muscle strength and tone normal. SPINE: No scoliosis or deformity SKIN: No rashes CENTRAL NERVOUS SYSTEM: Alert and oriented -3. No focal deficits, tone is normal in all 4 extremities. PSYCHIATRIC: Alert and oriented -3. Appropriate affect. Intact judgment and insight. - Labs CBC & Chem 7: 06/27/19 23:35 06/27/19 23:35 Labs: Microbiology - Last 24 Hours (Table) 06/27/19 23:34 Blood Culture - Preliminary Blood No Growth after 48 hours Assessment and Plan Plan: Assessment: #1. Acute exacerbation of chronic obstructive pulmonary disease, COVID 19 was negative, chest x-ray showed no acute pulmonary process #2. Previous episodes of pneumonia #3. Advanced COPD, on home oxygen, baseline FEV1 of 49% of predicted, maintained on Anoro and albuterol #4. Nicotine dependence, currently in remission, carries greater than 50 years of smoking history #5. Bilateral cataracts #6. 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 Poor overall functional performance based on the above-mentioned multiple comorbidities Plan: Continue current medical treatment, continue IV steroids, Covid 19 has been ruled out, continue with albuterol, Symbicort, continue with cough syrup. Still dyspneic and coughing. We'll continue current medical treatment. I performed a history & physical examination of the patient and discussed their management with my nurse practitioner, Leni Zarco. I reviewed the nurse practitioner's note and agree with the documented findings and plan of care. Lung sounds are positive for diminished breath sounds. The findings and the impression was discussed with the patient. I attest to the documentation by the nurse practitioner. Time with Patient: Less than 30
[2019-06-30 11:45] LABS: Glucose,Whole Blood 138 mg/dL (75-99)
[2019-06-30 16:51] LABS: Glucose,Whole Blood 133 mg/dL (75-99)
[2019-06-30] MEDS: INSULIN ASPART (NovoLOG) 100 UNIT/ML VIAL SQ SCH ×2 (17:01→20:51)
[2019-06-30 20:51] LABS: Glucose,Whole Blood 118 mg/dL (75-99)
[2019-06-30] MEDS: CHOLESTYRAMINE (WITH SUGAR) 4 GM PACKET PO SCH (20:56)
[2019-06-30] MEDS: AZITHROMYCIN 500 MG TAB PO SCH (20:56)
--- NOTE | 2019-06-30 23:13 | PN ---
PROGRESS NOTE This is a 79-year-old white female with COPD and hypoxemia who still has respiratory distress, congestive cough, hypertension acceleration. She has been treated with medications. LUNGS: Wheezes x4. Decreased breath sounds x4. Congested cough. CARDIOVASCULAR: S1, S2. ASSESSMENT: Chronic obstructive pulmonary disease exacerbation and tracheobronchitis. Remains on azithromycin, Ventolin, Symbicort, Questran, Solu-Medrol, Spiriva. Prognosis guarded. Follow up in next 24-48 hours. Recheck labs in the morning. MMODL / IJN: [id number] /
[2019-07-01 06:04] LABS: Glucose,Whole Blood 123 mg/dL (75-99)
[2019-07-01 06:30] LABS: Basophils % (A) 0 %; Eosinophils % (A) 0 %; HCT 38.9 % (34.0-46.0); HGB 12.7 gm/dL (11.4-16.0); Lymphocytes # (A) 0.5 k/uL (1.0-4.8); Lymphocytes % (A) 6 %; MCH 29.8 pg (25.0-35.0); MCHC 32.7 g/dL (31.0-37.0); MCV 91.2 fL (80.0-100.0); Mean Platelet Volume 7.9; Monocytes # (A) 0.5 k/uL (0-1.0); Monocytes % (A) 5 %; Neutrophils # (A) 7.9 k/uL (1.3-7.7); Neutrophils % (A) 89 %; Platelet Count 198 k/uL (150-450); RBC 4.27 m/uL (3.80-5.40); RDW 13.8 % (11.5-15.5); WBC 8.9 k/uL (3.8-10.6)
[2019-07-01] MEDS: INSULIN ASPART (NovoLOG) 100 UNIT/ML VIAL SQ SCH ×4 (06:34→20:57)
[2019-07-01] MEDS: methylPREDNISolone SOD SUCCI 40 MG/ML 1 ML VIAL IV SCH ×4 (06:35→23:28)
[2019-07-01 06:44] LABS: ALT 19 U/L (4-34); AST 23 U/L (14-36); African American GFR (CKD) >90 (>60 ml/min/1.73 sqM); Albumin 3.5 g/dL (3.5-5.0); Alkaline Phosphatase 36 U/L (38-126); Anion Gap 4 mmol/L; Blood Urea Nitrogen 27 mg/dL (7-17); Calcium 9.4 mg/dL (8.4-10.2); Carbon Dioxide 29 mmol/L (22-30); Chloride 104 mmol/L (98-107); Glucose 119 mg/dL (74-99); Non-African American GFR(CKD) 86 (>60 ml/min/1.73 sqM); Potassium 4.1 mmol/L (3.5-5.1); Sodium 137 mmol/L (137-145); Total Bilirubin 0.5 mg/dL (0.2-1.3)
[2019-07-01] MEDS: TIOTROPIUM 18 MCG/PUFF INHALER INHALATION SCH (07:58)
[2019-07-01] MEDS: ALBUTEROL HFA INHALER INHALATION SCH ×4 (07:58→19:59)
[2019-07-01] MEDS: SYMBICORT 160-4.5 MCG INHALER INHALATION SCH ×2 (07:58→19:59)
[2019-07-01] MEDS: guaiFENesin 600 MG TABLET.ER PO SCH ×2 (09:19→21:02)
[2019-07-01] MEDS: BENZONATATE 100 MG CAP PO SCH ×3 (09:20→21:02)
[2019-07-01] MEDS: ENOXAPARIN 40 MG/0.4 ML SYRINGE SQ SCH (09:20)
[2019-07-01] MEDS: LORATADINE 10 MG TAB PO SCH (09:22)
[2019-07-01] MEDS: CHOLESTYRAMINE (WITH SUGAR) 4 GM PACKET PO SCH ×3 (11:00→17:40)
--- NOTE | 2019-07-01 11:25 | P.PN ---
Subjective Progress Note Date: 07/01/19 Principal diagnosis: This is a 79-year-old female who a primary care physician in [place] on an outpatient basis. She also follows with Darlene Underwood DNP from pulmonary medicine for her severe oxygen dependent COPD. She presented to the emergency department with complaints of increasing shortness of breath for a couple of days prior to her admission. In addition, she had some cough and chest congestion. She denies any fever, chills, nausea, vomiting, diarrhea, abdominal pain or recent exposure to anybody with COVID 19 infection. Because she was not improving, she came into the emergency room to be evaluated. Her oxygen saturations were dropping and she denied any chest pain or chest discomfort. She reports she was not coughing up much or any phlegm. She felt like it was her COPD that was acting up. A chest x-ray was completed and showed significant COPD. There is nothing acute on her chest x-ray. She receives steroids and bronchodilators in the emergency department and she was admitted to the hospital for further evaluation and workup. She reports she is already starting to feel better. She was seen today on 06/29/2019 in follow-up on the cardiac stepdown unit. She is resting comfortably on the bedside edge, and is in no acute distress. She is hemodynamically stable. She has been afebrile the last 24 hours and her oxygen saturations are 96% on 4 L nasal cannula. Denies any complaints of pain and reports that her shortness of breath seems improved today. She did not have her repeat chest x-ray completed today and there are no new lab results today. Her blood culture show no growth after 24 hours. She remains on azithromycin for her Antibiotic coverage and she is on Solu-Medrol 40 mg IV every 6 hours. Remote telemetry showing normal sinus rhythm heart rate 65. The patient was seen today on 07/01/2019 in follow-up on the cardiac stepdown unit. She is awake, alert and oriented 3. She is in no acute distress. She reports that she is feeling fatigued and tired today. Denies any complaints of shortness of breath or pain. Oxygen saturations are 97% on 4 L nasal cannula. She did not have a chest x-ray completed today. Laboratory results show WBC count 8.9, hemoglobin 12.7, BUN 27 and creatinine 0.64. Blood culture showed no growth after 72 hours. She remains on Zithromax for antibiotic coverage, she continues on updrafts and Solu-Medrol 40 mg IV every 6 hours. A COVID 19 test was completed yesterday which was negative. Objective - Vital Signs Vital signs: Vital Signs Temp 97.9 F 07/01/19 04:00 Pulse 60 07/01/19 04:00 Resp 18 07/01/19 04:00 BP 164/84 07/01/19 04:00 Pulse Ox 97 07/01/19 04:00 Intake & Output 06/30/19 07/01/19 07/01/19 18:59 06:59 18:59 Intake Total 480 20 240 Output Total 351 240 150 Balance 129 -220 90 Weight 42.5 kg Intake: IV 20 0.9 20 Oral 480 240 Output: Urine 350 240 150 Stool 1 Other: Voiding Method Bedside Commode # Voids 1 1 - Exam This is a 79-year-old female cachectic patient who is resting comfortably in bedside. She is in no acute distress. Oxygen saturations are 97% on 4 L nasal cannula. - Constitutional General appearance: Present: cooperative, no acute distress, thin - EENT Eyes: Present: PERRLA, normal appearance. Absent: scleral icterus ENT: Present: hearing grossly normal. Absent: thrush - Neck Details: Neck is supple, no JVD, no lymphadenopathy. No thyroidomegaly. - Respiratory Details: Lung sounds with few scattered expiratory wheezes throughout, diminished bilateral bases. Few scattered crackles to her bilateral bases. Respirations are symmetrical and nonlabored. - Cardiovascular Details: Regular rhythm and rate. S1 and S2 present, negative for S3, gallop or murmur. - Gastrointestinal Gastrointestinal Comment(s): Abdomen is soft, nontender and nondistended. Normal bowel sounds all 4 abdominal quadrants. No guarding or rigidity. No organomegaly. - Integumentary Integumentary Comment(s): Skin is warm and dry. No clubbing or cyanosis present. No rash or abnormal pigmentation is present. - Neurologic Neurologic: Present: CNII-XII intact - Musculoskeletal Musculoskeletal: Present: generalized weakness, strength equal bilaterally - Psychiatric Psychiatric: Present: A&O x's 3, appropriate affect, intact judgment & insight - Allied health notes Allied health notes reviewed: nursing - Labs CBC & Chem 7: 07/01/19 06:12 07/01/19 06:12 Labs: Abnormal Lab Results - Last 24 Hours (Table) 06/30/19 06/30/19 06/30/19 Range/Units 11:43 16:50 20:50 Neutrophils # (1.3-7.7) k/uL Lymphocytes # (1.0-4.8) k/uL BUN (7-17) mg/dL Glucose (74-99) mg/dL POC Glucose (mg/dL) 138 H 133 H 118 H (75-99) mg/dL Alkaline Phosphatase (38-126) U/L Total Protein (6.3-8.2) g/dL 07/01/19 07/01/19 07/01/19 Range/Units 06:02 06:12 06:12 Neutrophils # 7.9 H (1.3-7.7) k/uL Lymphocytes # 0.5 L (1.0-4.8) k/uL BUN 27 H (7-17) mg/dL Glucose 119 H (74-99) mg/dL POC Glucose (mg/dL) 123 H (75-99) mg/dL Alkaline Phosphatase 36 L (38-126) U/L Total Protein 6.0 L (6.3-8.2) g/dL Microbiology - Last 24 Hours (Table) 06/27/19 23:34 Blood Culture - Preliminary Blood No Growth after 72 hours Assessment and Plan Assessment: 1. Acute exacerbation of chronic obstructive pulmonary disease, COVID 19 was negative 2. Previous episodes of pneumonia 3. Advanced COPD, home oxygen use, baseline FEV1 49% of predicted value 4. History of cataracts 5. Nicotine dependence, currently in remission, caries greater than 50 years of smoking history 6. 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 Poor overall functional performance based on the above mentioned multiple comorbidities Plan: 1. The patient was seen and examined at her bedside with Dr. Granados. 2. Wean oxygen as tolerated to keep her oxygen saturations greater than or equal to 92%. She is currently on 4 L nasal cannula and her home oxygen dose is 3 L nasal cannula. 3. Continue Solu-Medrol 40 mg IV every 6 hours and Pulmicort 1 mg mixed with formoterol 20 g twice a day. 4. Increase activity as tolerated. Out of bed for all meals. 5. Encourage use of her incentive spirometry every hour while awake. 6. Continue current medical therapy. 7. More recommendations to follow based on patient's clinical course. I, the cosigning physician, performed a history and physical examination on the patient. Lungs diminished with some scattered expiratory wheezes and maintaining O2 saturation in the 90s on 4 L nasal cannula. I discussed the plan and assessment of care with Faheem Vásquez MACHINE STONE POLISHER APPRENTICE. I attest that the above note is dictated by him. Time with Patient: Less than 30
[2019-07-01 11:31] LABS: Glucose,Whole Blood 120 mg/dL (75-99)
--- NOTE | 2019-07-01 15:14 | CDI ---
Documentation Clarification Form Date: 07/01/2019 02:56:37 PM From: Izabela Chaparro RN CCDS Admit Date: 06/28/2019 12:18:00 AM Patient Name: Chelsea Bland Visit Number: [id number] Discharge Date: ATTENTION: The Clinical Documentation Specialists (CDI) and [facility] Coding Staff appreciate your assistance in clarifying documentation. Please respond to the clarification below the line at the bottom and electronically sign. The CDI & [facility] Coding staff will review the response and follow-up if needed. Please note: Queries are made part of the Legal Health Record. If you have any questions, please contact the author of this message via ITS. Dr. John Sanchez The patient presented with the cough, congestion and severe shortness of breath. History/Risk Factors: 79-year-old female with a medical history of severe oxygen dependent COPD, 3L home oxygen, chronic respiratory failure, Tobacco use: 50 years of smoking home Home oxygen: 3L Clinical Indicators: 06/26 VSS 169/110, 114, 97.9, 34 100% Non-Rebreather. 06/27 VSS 133/71, 92, 98.4, 26, 100% 7L High Flow oxygen 06/27 Lung/Breathing assessment: Pulmonary Consult - Severely diminished breath sounds. Mild expiratory wheezes and rhonchi. Prolongation on expiratory phase. Treatment: Breathing tx Ventolin HFA Inhaler QID RUBIN, Oxygen via Non-Rebreather, High Flow Nasal Cannula, In your professional opinion, can you please clarify if these findings signify one of the following conditions? Acute on Chronic Respiratory Failure Other Diagnosis, please specify Unable to determine Specificity: If known, further specify (if known): With hypercapnia? (pCO2 >50 and pH <7.35) With hypoxia? (pO2 <60 mm Hg or SpO2 <91% on room air) (Last Query Form Revision: November 2018) MTDD
[2019-07-01 16:15] LABS: Glucose,Whole Blood 141 mg/dL (75-99)
--- NOTE | 2019-07-01 17:19 | P.PN ---
Subjective Progress Note Date: 07/01/19 This is a 79-year-old female in with acute COPD exacerbation with purulent tracheobronchitis and multiple other medical issues. Maintained on IV antibiotics, nebulized bronchodilators, IV steroids with significant clinical improvement, less wheezing. Blood sugars controlled. Tested negative for coronavirus. Currently maintaining O2 sats in the 90s on 4 L nasal cannula O2 in a patient who normally wears 3 L at home. Denies chest pain, palpitations or shortness of breath. Afebrile, normal WBC. Objective - Vital Signs Vital signs: Vital Signs Temp 98.6 F 07/01/19 08:00 Pulse 66 07/01/19 08:00 Resp 20 07/01/19 08:00 BP 165/82 07/01/19 08:00 Pulse Ox 98 07/01/19 08:00 Intake & Output 06/30/19 07/01/19 07/01/19 18:59 06:59 18:59 Intake Total 480 20 720 Output Total 351 240 151 Balance 129 -220 569 Weight 42.5 kg Intake: IV 20 0.9 20 Oral 480 720 Output: Urine 350 240 150 Stool 1 1 Other: Voiding Method Bedside Commode Bedside Commode # Voids 1 1 - Exam PHYSICAL EXAM: VITAL SIGNS: As above GENERAL: Cachectic, Sitting up in bed, no acute distress HEENT: Conjunctivae normal. eyes normal. NECK: No JVD. No thyroid enlargement. No LNs CARDIOVASCULAR: S1, S2 regular.. No murmur RESPIRATION: Breath sounds diminished in the bases. No rhonchi , no crackles. Less scattered expiratory wheezing. ABDOMEN: Soft, nontender . No guarding. no masses palpable. Bowel sounds heard. LEGS: No edema. no swelling PSYCHIATRY: Alert and oriented X3, mood and affect normal. NERVOUS SYSTEM: Cranial N 2-12 grossly normal. Moves all 4 limbs. No focal deficits. Strength and sensation grossly intact.. Skin: no rash Microbiology 06/27/19 23:34 Blood Blood Culture - Preliminary No Growth after 72 hours - Labs CBC & Chem 7: 07/01/19 06:12 07/01/19 06:12 Labs: Abnormal Lab Results - Last 24 Hours (Table) 06/30/19 07/01/19 07/01/19 Range/Units 20:50 06:02 06:12 Neutrophils # 7.9 H (1.3-7.7) k/uL Lymphocytes # 0.5 L (1.0-4.8) k/uL BUN (7-17) mg/dL Glucose (74-99) mg/dL POC Glucose (mg/dL) 118 H 123 H (75-99) mg/dL Alkaline Phosphatase (38-126) U/L Total Protein (6.3-8.2) g/dL 07/01/19 07/01/19 07/01/19 Range/Units 06:12 11:30 16:13 Neutrophils # (1.3-7.7) k/uL Lymphocytes # (1.0-4.8) k/uL BUN 27 H (7-17) mg/dL Glucose 119 H (74-99) mg/dL POC Glucose (mg/dL) 120 H 141 H (75-99) mg/dL Alkaline Phosphatase 36 L (38-126) U/L Total Protein 6.0 L (6.3-8.2) g/dL Microbiology - Last 24 Hours (Table) 06/27/19 23:34 Blood Culture - Preliminary Blood No Growth after 72 hours Assessment and Plan Assessment: Acute COPD exacerbation with purulent tracheobronchitis Acute on chronic hypoxic and hypercapnic respiratory failure, wears 3 L nasal cannula O2 at home Accelerated hypertension secondary to the above History of pneumonia, tested negative for coronavirus Former extensive nicotine dependence Moderate protein malnutrition, BMI 15.6 secondary to advanced COPD Plan: Continue on current medication regime ,monitoring and symptomatic treatment. Maintain IV antibiotics, nebulized bronchodilators, IV steroids. Aggressive pulmonary toileting with incentive spirometer reinforced. Increase activity as tolerated. Discharge planning in the next 24-48 hrs. pending pulmonary clearance. The impression and plan of care has been dictated as directed. : I performed a history and examination of this patient, discussed the same with the dictator. I agree with the dictator's note ,documented as a scribe. Any additional findings or plans will be noted.
[2019-07-01 20:50] LABS: Glucose,Whole Blood 114 mg/dL (75-99)
[2019-07-01] MEDS: AZITHROMYCIN 500 MG TAB PO SCH (21:02)
[2019-07-02 06:01] LABS: Glucose,Whole Blood 118 mg/dL (75-99)
[2019-07-02] MEDS: INSULIN ASPART (NovoLOG) 100 UNIT/ML VIAL SQ SCH ×4 (06:48→21:47)
[2019-07-02] MEDS: methylPREDNISolone SOD SUCCI 40 MG/ML 1 ML VIAL IV SCH ×4 (06:48→23:36)
[2019-07-02] MEDS: ALBUTEROL HFA INHALER INHALATION SCH ×4 (08:15→19:56)
[2019-07-02] MEDS: SYMBICORT 160-4.5 MCG INHALER INHALATION SCH ×2 (08:16→19:56)
[2019-07-02] MEDS: TIOTROPIUM 18 MCG/PUFF INHALER INHALATION SCH (08:16)
[2019-07-02] MEDS: ENOXAPARIN 40 MG/0.4 ML SYRINGE SQ SCH (08:34)
[2019-07-02] MEDS: LORATADINE 10 MG TAB PO SCH (08:34)
[2019-07-02] MEDS: guaiFENesin 600 MG TABLET.ER PO SCH ×2 (08:34→21:47)
[2019-07-02] MEDS: BENZONATATE 100 MG CAP PO SCH ×3 (08:34→21:47)
[2019-07-02] MEDS: CHOLESTYRAMINE (WITH SUGAR) 4 GM PACKET PO SCH ×3 (08:35→17:57)
[2019-07-02 11:58] LABS: Glucose,Whole Blood 136 mg/dL (75-99)
[2019-07-02 13:45] VITALS: BMI 14.6
--- NOTE | 2019-07-02 14:53 | P.PN ---
Subjective Progress Note Date: 07/02/19 Principal diagnosis: This is a 79-year-old female who a primary care physician in [place] on an outpatient basis. She also follows with Darlene Underwood DNP from pulmonary medicine for her severe oxygen dependent COPD. She presented to the emergency department with complaints of increasing shortness of breath for a couple of days prior to her admission. In addition, she had some cough and chest congestion. She denies any fever, chills, nausea, vomiting, diarrhea, abdominal pain or recent exposure to anybody with COVID 19 infection. Because she was not improving, she came into the emergency room to be evaluated. Her oxygen saturations were dropping and she denied any chest pain or chest discomfort. She reports she was not coughing up much or any phlegm. She felt like it was her COPD that was acting up. A chest x-ray was completed and showed significant COPD. There is nothing acute on her chest x-ray. She receives steroids and bronchodilators in the emergency department and she was admitted to the hospital for further evaluation and workup. She reports she is already starting to feel better. She was seen today on 06/29/2019 in follow-up on the cardiac stepdown unit. She is resting comfortably on the bedside edge, and is in no acute distress. She is hemodynamically stable. She has been afebrile the last 24 hours and her oxygen saturations are 96% on 4 L nasal cannula. Denies any complaints of pain and reports that her shortness of breath seems improved today. She did not have her repeat chest x-ray completed today and there are no new lab results today. Her blood culture show no growth after 24 hours. She remains on azithromycin for her Antibiotic coverage and she is on Solu-Medrol 40 mg IV every 6 hours. Remote telemetry showing normal sinus rhythm heart rate 65. The patient was seen today on 07/01/2019 in follow-up on the cardiac stepdown unit. She is awake, alert and oriented 3. She is in no acute distress. She reports that she is feeling fatigued and tired today. Denies any complaints of shortness of breath or pain. Oxygen saturations are 97% on 4 L nasal cannula. She did not have a chest x-ray completed today. Laboratory results show WBC count 8.9, hemoglobin 12.7, BUN 27 and creatinine 0.64. Blood culture showed no growth after 72 hours. She remains on Zithromax for antibiotic coverage, she continues on updrafts and Solu-Medrol 40 mg IV every 6 hours. A COVID 19 test was completed yesterday which was negative. On 07/02/2019 the patient was seen in follow-up on the cardiac stepdown unit. She is awake, alert and oriented 3. She is in no acute distress. She remains hemodynamically stable and is currently on 3 L nasal cannula with oxygen saturations 99%. She has been afebrile the last 24 hours. She reports she is continuing to fill better each day. Denies any complaints of pain or shortness of breath and is clinically improving. She continues on Solu-Medrol 40 mg IV every 12 hours and bronchodilators. Blood cultures after 96 hours show no growth. She remains on Zithromax for antibiotic coverage. She did not have a chest x-ray or labs completed today. Remote telemetry showing sinus bradycardia heart rate 59. Objective - Vital Signs Vital signs: Vital Signs Temp 97.9 F 07/02/19 08:00 Pulse 88 07/02/19 11:56 Resp 22 07/02/19 11:56 BP 158/74 07/02/19 08:00 Pulse Ox 99 07/02/19 08:00 Intake & Output 07/01/19 07/02/19 07/02/19 18:59 06:59 18:59 Intake Total 957 280 480 Output Total 152 700 2 Balance 805 -420 478 Weight 40 kg 40 kg Intake: IV 30 0.9 10 Invasive Line 2 20 Oral 957 250 480 Output: Urine 150 700 Stool 2 2 Other: Voiding Method Bedside Commode Bedside Commode Bedside Commode # Voids 1 - Exam This is a 79-year-old female cachectic patient who is resting comfortably in bedside. She is in no acute distress. Oxygen saturations are 99% on 3 L nasal cannula. - Constitutional Constitutional Comment(s): Cachectic/anorexic General appearance: Present: cooperative, no acute distress - EENT Eyes: Present: PERRLA, normal appearance. Absent: scleral icterus ENT: Present: hard of hearing, normal oropharynx. Absent: thrush - Neck Details: Neck supple, no JVD. Neck: Absent: lymphadenopathy, stridor, thyromegaly - Respiratory Details: Lung sounds with few scattered expiratory wheezes throughout, diminished bilateral bases. Few scattered crackles to her bilateral bases. Respirations are symmetrical and nonlabored. - Cardiovascular Details: Regular rhythm and bradycardic rate. S1 and S2 present, negative for S3, gallop or murmur. - Gastrointestinal Gastrointestinal Comment(s): Abdomen is soft, nontender and nondistended. Normal bowel sounds all 4 abdominal quadrants. No guarding or rigidity. No organomegaly. - Integumentary Integumentary Comment(s): Skin is warm and dry. No clubbing or cyanosis present. No rash or abnormal pigmentation is present. - Neurologic Neurologic: Present: CNII-XII intact - Musculoskeletal Musculoskeletal: Present: generalized weakness, strength equal bilaterally - Psychiatric Psychiatric: Present: A&O x's 3, appropriate affect, intact judgment & insight - Allied health notes Allied health notes reviewed: nursing - Labs CBC & Chem 7: 07/01/19 06:12 07/01/19 06:12 Labs: Abnormal Lab Results - Last 24 Hours (Table) 07/01/19 07/01/19 07/02/19 Range/Units 16:13 20:48 05:59 POC Glucose (mg/dL) 141 H 114 H 118 H (75-99) mg/dL 07/02/19 Range/Units 11:56 POC Glucose (mg/dL) 136 H (75-99) mg/dL Microbiology - Last 24 Hours (Table) 06/27/19 23:34 Blood Culture - Preliminary Blood No Growth after 96 hours Assessment and Plan Assessment: 1. Acute exacerbation of chronic obstructive pulmonary disease, COVID 19 was negative 2. Previous episodes of pneumonia 3. Advanced COPD, home oxygen use, baseline FEV1 49% of predicted value 4. History of cataracts 5. Nicotine dependence, currently in remission, caries greater than 50 years of smoking history 6. 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 Poor overall functional performance based on the above mentioned multiple comorbidities Plan: 1. The patient was seen and examined at her bedside with Dr. Granados. 2. Wean oxygen as tolerated to keep her oxygen saturations greater than or equal to 92%. She is currently on 3 L nasal cannula and her home oxygen dose is 3 L nasal cannula. 3. Continue Solu-Medrol 40 mg IV every 6 hours for another 24 hours, we will discontinue the Solu-Medrol tomorrow and start her on a prednisone taper in anticipation for discharge home. Continue Pulmicort 1 mg mixed with formoterol 20 g twice a day. 4. Increase activity as tolerated. Out of bed for all meals. 5. Encourage use of her incentive spirometry every hour while awake. 6. Continue current medical therapy. 7. More recommendations to follow based on patient's clinical course. I, the cosigning physician, performed a history and physical examination on the patient. Lungs diminished with some scattered expiratory wheezes and maintaining O2 saturation in the 90s on 3 L nasal cannula. I discussed the plan and assessment of care with Faheem Vásquez ETL TESTER. I attest that the above note is dictat ed by him. Time with Patient: Less than 30
[2019-07-02 17:01] LABS: Glucose,Whole Blood 121 mg/dL (75-99)
--- NOTE | 2019-07-02 18:04 | P.PN ---
Subjective Progress Note Date: 07/02/19 This is a 79-year-old female in with acute COPD exacerbation with purulent tracheobronchitis and multiple other medical issues. Maintained on IV antibiotics, nebulized bronchodilators, IV steroids with significant clinical improvement, less wheezing. Blood sugars controlled. Tested negative for coronavirus. Currently maintaining O2 sats in the 90s on 4 L nasal cannula O2 in a patient who normally wears 3 L at home. Denies chest pain, palpitations or shortness of breath. Afebrile, normal WBC. 07/02/2019 maintained on nebulized bronchodilators, IV steroids, Zithromax ,breathing continues to improve. Maintaining O2 sats in the high 90s on 3lnc O2. Afebrile. States chest pain, palpitations or increased shortness of breath. Objective - Vital Signs Vital signs: Vital Signs Temp 97.9 F 07/02/19 08:00 Pulse 88 07/02/19 16:00 Resp 22 07/02/19 16:00 BP 158/74 07/02/19 08:00 Pulse Ox 99 07/02/19 08:00 Intake & Output 07/01/19 07/02/19 07/02/19 18:59 06:59 18:59 Intake Total 957 280 480 Output Total 152 700 3 Balance 805 -420 477 Weight 40 kg 40 kg Intake: IV 30 0.9 10 Invasive Line 2 20 Oral 957 250 480 Output: Urine 150 700 Stool 2 3 Other: Voiding Method Bedside Commode Bedside Commode Bedside Commode # Voids 1 - Exam PHYSICAL EXAM: VITAL SIGNS: As above GENERAL: Cachectic, Sitting up in bed, no acute distress HEENT: Conjunctivae normal. eyes normal. NECK: No JVD. No thyroid enlargement. No LNs CARDIOVASCULAR: S1, S2 regular.. No murmur RESPIRATION: Unlabored. Breath sounds diminished in the bases. No rhonchi , occasional fine bibasilar crackles. Less scattered expiratory wheezing. ABDOMEN: Soft, nontender . No guarding. no masses palpable. Bowel sounds heard. LEGS: No edema. no swelling PSYCHIATRY: Alert and oriented X3, mood and affect normal. NERVOUS SYSTEM: Cranial N 2-12 grossly normal. Moves all 4 limbs. No focal deficits. Strength and sensation grossly intact.. Skin: no rash Microbiology 06/27/19 23:34 Blood Blood Culture - Preliminary No Growth after 96 hours - Labs CBC & Chem 7: 07/01/19 06:12 07/01/19 06:12 Labs: Abnormal Lab Results - Last 24 Hours (Table) 07/01/19 07/02/19 07/02/19 Range/Units 20:48 05:59 11:56 POC Glucose (mg/dL) 114 H 118 H 136 H (75-99) mg/dL 07/02/19 Range/Units 17:00 POC Glucose (mg/dL) 121 H (75-99) mg/dL Microbiology - Last 24 Hours (Table) 06/27/19 23:34 Blood Culture - Preliminary Blood No Growth after 96 hours Assessment and Plan Assessment: Acute COPD exacerbation with purulent tracheobronchitis Acute on chronic hypoxic and hypercapnic respiratory failure, wears 3 L nasal cannula O2 at home Accelerated hypertension secondary to the above History of pneumonia, tested negative for coronavirus Former extensive nicotine dependence Moderate protein malnutrition, BMI 15.6 secondary to advanced COPD Plan: Continue on current medication regime ,monitoring and symptomatic treatment. Continue with IV antibiotics, nebulized bronchodilators, IV steroids. Steroid tapering in progress as per pulmonary. Maintain aggressive pulmonary toileting with incentive spirometer reinforced. Increase activity as tolerated. Discharge planning in progress for tomorrow pending pulmonary clearance. The impression and plan of care has been dictated as directed. : I performed a history and examination of this patient, discussed the same with the dictator. I agree with the dictator's note ,documented as a scribe. Any additional findings or plans will be noted.
[2019-07-02 21:22] LABS: Glucose,Whole Blood 127 mg/dL (75-99)
[2019-07-02] MEDS: AZITHROMYCIN 500 MG TAB PO SCH (21:47)
--- NOTE | 2019-07-02 23:36 | PN ---
PROGRESS NOTE A 79-year-old white female. COPD exacerbation tracheobronchitis slow improvement. She still has tightness and wheezing in her chest. Remains on Mucinex, Claritin, Solu- Medrol, Spiriva, Symbicort, Tessalon Perles, azithromycin, Xanax, Ventolin HFA. She is 94% on 3 L. Blood pressure 160s to 170s over 80s to 90s. Respiratory rate 16 to 18. Temp 97 to 98.3. HEMATOLOGY: Negative Homans. LUNGS: Show scattered rhonchi and wheeze. PLAN: Continue current treatments. Please see further orders. MMODL / IJN: [id number] /
[2019-07-03] MEDS: methylPREDNISolone SOD SUCCI 40 MG/ML 1 ML VIAL IV SCH ×3 (06:16→16:45)
[2019-07-03 07:20] LABS: Glucose,Whole Blood 112 mg/dL (75-99)
[2019-07-03] MEDS: INSULIN ASPART (NovoLOG) 100 UNIT/ML VIAL SQ SCH ×4 (07:21→20:27)
[2019-07-03] MEDS: guaiFENesin 600 MG TABLET.ER PO SCH ×2 (07:22→21:09)
[2019-07-03] MEDS: BENZONATATE 100 MG CAP PO SCH ×3 (07:22→21:09)
[2019-07-03] MEDS: ENOXAPARIN 40 MG/0.4 ML SYRINGE SQ SCH (07:22)
[2019-07-03] MEDS: LORATADINE 10 MG TAB PO SCH (07:22)
[2019-07-03 07:50] LABS: Basophils % (A) 0 %; Eosinophils # (A) 0.1 k/uL (0-0.7); Eosinophils % (A) 1 %; HGB 13.9 gm/dL (11.4-16.0); Lymphocytes # (A) 0.6 k/uL (1.0-4.8); Lymphocytes % (A) 6 %; MCH 29.2 pg (25.0-35.0); MCHC 32.2 g/dL (31.0-37.0); MCV 90.5 fL (80.0-100.0); Mean Platelet Volume 7.8; Monocytes # (A) 0.6 k/uL (0-1.0); Monocytes % (A) 7 %; Neutrophils # (A) 8.4 k/uL (1.3-7.7); Neutrophils % (A) 86 %; Platelet Count 240 k/uL (150-450); RBC 4.76 m/uL (3.80-5.40); RDW 13.3 % (11.5-15.5); WBC 9.8 k/uL (3.8-10.6)
[2019-07-03 07:53] LABS: African American GFR (CKD) >90 (>60 ml/min/1.73 sqM); Anion Gap 8 mmol/L; Blood Urea Nitrogen 24 mg/dL (7-17); Calcium 9.2 mg/dL (8.4-10.2); Carbon Dioxide 27 mmol/L (22-30); Chloride 101 mmol/L (98-107); Glucose 100 mg/dL (74-99); Non-African American GFR(CKD) 88 (>60 ml/min/1.73 sqM); Potassium 3.9 mmol/L (3.5-5.1); Sodium 136 mmol/L (137-145)
[2019-07-03] MEDS: SYMBICORT 160-4.5 MCG INHALER INHALATION SCH ×2 (08:10→19:40)
[2019-07-03] MEDS: ALBUTEROL HFA INHALER INHALATION SCH ×4 (08:10→19:40)
[2019-07-03] MEDS: TIOTROPIUM 18 MCG/PUFF INHALER INHALATION SCH (08:30)
[2019-07-03 08:59] LABS: Glucose,Whole Blood 166 mg/dL (75-99)
[2019-07-03] MEDS: CHOLESTYRAMINE (WITH SUGAR) 4 GM PACKET PO SCH ×3 (10:44→16:44)
[2019-07-03 11:16] LABS: Glucose,Whole Blood 113 mg/dL (75-99)
--- NOTE | 2019-07-03 13:53 | P.PN ---
Subjective Progress Note Date: 07/03/19 Principal diagnosis: This is a 79-year-old female who a primary care physician in [place] on an outpatient basis. She also follows with Darlene Underwood DNP from pulmonary medicine for her severe oxygen dependent COPD. She presented to the emergency department with complaints of increasing shortness of breath for a couple of days prior to her admission. In addition, she had some cough and chest congestion. She denies any fever, chills, nausea, vomiting, diarrhea, abdominal pain or recent exposure to anybody with COVID 19 infection. Because she was not improving, she came into the emergency room to be evaluated. Her oxygen saturations were dropping and she denied any chest pain or chest discomfort. She reports she was not coughing up much or any phlegm. She felt like it was her COPD that was acting up. A chest x-ray was completed and showed significant COPD. There is nothing acute on her chest x-ray. She receives steroids and bronchodilators in the emergency department and she was admitted to the hospital for further evaluation and workup. She reports she is already starting to feel better. She was seen today on 06/29/2019 in follow-up on the cardiac stepdown unit. She is resting comfortably on the bedside edge, and is in no acute distress. She is hemodynamically stable. She has been afebrile the last 24 hours and her oxygen saturations are 96% on 4 L nasal cannula. Denies any complaints of pain and reports that her shortness of breath seems improved today. She did not have her repeat chest x-ray completed today and there are no new lab results today. Her blood culture show no growth after 24 hours. She remains on azithromycin for her Antibiotic coverage and she is on Solu-Medrol 40 mg IV every 6 hours. Remote telemetry showing normal sinus rhythm heart rate 65. The patient was seen today on 07/01/2019 in follow-up on the cardiac stepdown unit. She is awake, alert and oriented 3. She is in no acute distress. She reports that she is feeling fatigued and tired today. Denies any complaints of shortness of breath or pain. Oxygen saturations are 97% on 4 L nasal cannula. She did not have a chest x-ray completed today. Laboratory results show WBC count 8.9, hemoglobin 12.7, BUN 27 and creatinine 0.64. Blood culture showed no growth after 72 hours. She remains on Zithromax for antibiotic coverage, she continues on updrafts and Solu-Medrol 40 mg IV every 6 hours. A COVID 19 test was completed yesterday which was negative. On 07/02/2019 the patient was seen in follow-up on the cardiac stepdown unit. She is awake, alert and oriented 3. She is in no acute distress. She remains hemodynamically stable and is currently on 3 L nasal cannula with oxygen saturations 99%. She has been afebrile the last 24 hours. She reports she is continuing to fill better each day. Denies any complaints of pain or shortness of breath and is clinically improving. She continues on Solu-Medrol 40 mg IV every 12 hours and bronchodilators. Blood cultures after 96 hours show no growth. She remains on Zithromax for antibiotic coverage. She did not have a chest x-ray or labs completed today. Remote telemetry showing sinus bradycardia heart rate 59. On 07/03/2019 the patient was seen in follow-up on the fourth floor medical surgical unit. She is currently laying in bed, in no acute distress. She is awake, alert and oriented 3. She reports that she is still feeling fatigued and having some episodes of shortness of breath with activity. Denies any complaints of pain. She is also complaining of a productive cough with thin clear sputum. Oxygen saturations are 94% on 2 L nasal cannula. Lab results today show a WBC count 9.8, hemoglobin 13.9, reported platelets 240, BUN 24, and creatinine 0.59. No follow-up chest x-ray was completed today. Blood culture remained showing no growth after 120 hours. Antibiotics are in place Zithromax for her coverage, continues on Solu-Medrol 40 mg IV every 6 hours, Mucinex and bronchodilators. Objective - Vital Signs Vital signs: Vital Signs Temp 97.8 F 07/03/19 07:00 Pulse 60 07/03/19 07:00 Resp 15 07/03/19 08:00 BP 169/91 07/03/19 07:00 Pulse Ox 94 L 07/03/19 07:00 Intake & Output 07/02/19 07/03/19 07/03/19 18:59 06:59 18:59 Intake Total 480 250 520 Output Total 3 1 Balance 477 249 520 Weight 40 kg 40.2 kg Intake: Oral 480 250 520 Output: Stool 3 1 Other: Voiding Method Bedside Commode Bedside Commode Bedside Commode # Voids 1 1 - Exam This is a 79-year-old female cachectic patient who is resting comfortably in bed. She is in no acute distress. Oxygen saturations are 94% on 2 L nasal cannula. - Constitutional Constitutional Comment(s): Cachectic/anorexic General appearance: Present: cooperative, no acute distress - EENT Eyes: Present: PERRLA, normal appearance. Absent: scleral icterus ENT: Present: hard of hearing, normal oropharynx - Neck Details: Neck is supple, no JVD. Neck: Absent: lymphadenopathy, stridor - Respiratory Details: Lung sounds with scattered expiratory wheezes throughout, diminished bilateral bases. Respirations are symmetrical and nonlabored. - Cardiovascular Details: Regular rhythm and bradycardic rate. S1 and S2 present, negative for S3, gallop or murmur. - Gastrointestinal Gastrointestinal Comment(s): Abdomen is soft, nontender and nondistended. Normal bowel sounds all 4 abdominal quadrants. No guarding or rigidity. No organomegaly. - Integumentary Integumentary Comment(s): Skin is warm and dry. No clubbing or cyanosis present. No rash or abnormal pigmentation is present. - Neurologic Neurologic: Present: CNII-XII intact - Musculoskeletal Musculoskeletal: Present: generalized weakness, strength equal bilaterally - Psychiatric Psychiatric: Present: A&O x's 3, appropriate affect, intact judgment & insight - Allied health notes Allied health notes reviewed: nursing - Labs CBC & Chem 7: 07/03/19 07:06 07/03/19 07:06 Labs: Abnormal Lab Results - Last 24 Hours (Table) 07/02/19 07/02/19 07/03/19 Range/Units 17:00 21:20 07:06 Neutrophils # 8.4 H (1.3-7.7) k/uL Lymphocytes # 0.6 L (1.0-4.8) k/uL Sodium (137-145) mmol/L BUN (7-17) mg/dL Glucose (74-99) mg/dL POC Glucose (mg/dL) 121 H 127 H (75-99) mg/dL 07/03/19 07/03/19 07/03/19 Range/Units 07:06 07:19 08:57 Neutrophils # (1.3-7.7) k/uL Lymphocytes # (1.0-4.8) k/uL Sodium 136 L (137-145) mmol/L BUN 24 H (7-17) mg/dL Glucose 100 H (74-99) mg/dL POC Glucose (mg/dL) 112 H 166 H (75-99) mg/dL 07/03/19 Range/Units 11:15 Neutrophils # (1.3-7.7) k/uL Lymphocytes # (1.0-4.8) k/uL Sodium (137-145) mmol/L BUN (7-17) mg/dL Glucose (74-99) mg/dL POC Glucose (mg/dL) 113 H (75-99) mg/dL Microbiology - Last 24 Hours (Table) 06/27/19 23:34 Blood Culture - Preliminary Blood No Growth after 120 hours Assessment and Plan Assessment: 1. Acute exacerbation of chronic obstructive pulmonary disease, COVID 19 was negative 2. Previous episodes of pneumonia 3. Advanced COPD, home oxygen use, baseline FEV1 49% of predicted value 4. History of cataracts 5. Nicotine dependence, currently in remission, caries greater than 50 years of smoking history 6. 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 Poor overall functional performance based on the above mentioned multiple comorbidities Plan: 1. The patient was seen and examined at her bedside with Dr. Granados. 2. Wean oxygen as tolerated to keep her oxygen saturations greater than or equal to 92%. She is currently on 2 L nasal cannula. 3. Continue Solu-Medrol 40 mg IV every 6 hours for another 24 hours, Continue Pulmicort 1 mg mixed with formoterol 20 g twice a day. 4. Increase activity as tolerated. Out of bed for all meals. 5. Encourage use of her incentive spirometry every hour while awake. 6. Continue Mucinex. 7. Continue current medical therapy. 8. More recommendations to follow based on patient's clinical course. I, the cosigning physician, performed a history and physical examination on the patient. Lungs diminished with some scattered expiratory wheezes and maintaining O2 saturation in the 90s on 2 L nasal cannula. I discussed the plan and assessment of care with Faheem Vásquez [employer]. I attest that the above note is dictated by him. Time with Patient: Less than 30
[2019-07-03 16:24] LABS: Glucose,Whole Blood 135 mg/dL (75-99)
[2019-07-03 20:18] LABS: Glucose,Whole Blood 124 mg/dL (75-99)
[2019-07-03] MEDS: AZITHROMYCIN 500 MG TAB PO SCH (21:09)
[2019-07-04] MEDS: methylPREDNISolone SOD SUCCI 40 MG/ML 1 ML VIAL IV SCH ×4 (00:46→18:35)
[2019-07-04 07:16] LABS: Glucose,Whole Blood 109 mg/dL (75-99)
[2019-07-04] MEDS: INSULIN ASPART (NovoLOG) 100 UNIT/ML VIAL SQ SCH ×4 (07:26→21:44)
[2019-07-04] MEDS: CHOLESTYRAMINE (WITH SUGAR) 4 GM PACKET PO SCH ×3 (08:06→18:29)
[2019-07-04] MEDS: LORATADINE 10 MG TAB PO SCH (08:11)
[2019-07-04] MEDS: guaiFENesin 600 MG TABLET.ER PO SCH ×2 (08:11→21:44)
[2019-07-04] MEDS: ENOXAPARIN 40 MG/0.4 ML SYRINGE SQ SCH (08:11)
[2019-07-04] MEDS: BENZONATATE 100 MG CAP PO SCH ×3 (08:11→21:44)
[2019-07-04] MEDS: ALBUTEROL HFA INHALER INHALATION SCH ×4 (08:38→19:50)
--- NOTE | 2019-07-04 10:52 | ECHOF ---
Referral Reason:LV fx MEASUREMENTS -------- HEIGHT: 165.1 cm WEIGHT: 49.0 kg BP: 154/71 IVSd: 1.0 cm (0.6 - 1.1) LVIDd: 3.7 cm (3.9 - 5.3) LVPWd: 1.0 cm (0.6 - 1.1) IVSs: 1.3 cm LVIDs: 2.4 cm LVPWs: 1.4 cm LAESV Index (A-L): 24.73 ml/m Ao Diam: 3.1 cm (2.0 - 3.7) AV Cusp: 1.6 cm (1.5 - 2.6) LA Diam: 1.5 cm (2.7 - 3.8) MV EXCURSION: 13.666 mm (> 18.000) MV EF SLOPE: 92 mm/s (70 - 150) EPSS: 0.5 cm MV E Go: 0.63 m/s MV DecT: 214 ms MV A Go: 0.85 m/s MV E/A Ratio: 0.73 AR PHT: 822 ms RAP: 5.00 mmHg RVSP: 14.79 mmHg TAPSE: 29.46 mm FINDINGS -------- Sinus rhythm. This was a technically good study. The left ventricular size is normal. Left ventricular wall thickness is normal. Overall left vent ricular systolic function is normal with, an EF between 55 - 60 %. The diastolic filling pattern is normal for the age of the patient 9.48. The right ventricle is normal in size. The left atrial size is normal. Normal LA size by volume 22+/-6 ml/m2. The right atrial size is normal. Eustachian valve seen in the right atrium (normal finding). The aortic valve is trileaflet and appears structurally normal. Trace amount of aortic regurgitatio n. The mitral valve is normal. The mitral valve leaflets are mildly thickened. Mild mitral regurgita tion is present. The tricuspid valve appears structurally normal. Mild tricuspid regurgitation present. Right vent ricular systolic pressure is normal at < 35 mmHg. There is no pulmonic regurgitation present. The aortic root size is normal. Normal inferior vena cava with normal inspiratory collapse consistent with estimated right atrial pre ssure of 5 mmHg. There is a trivial pericardial effusion present. CONCLUSIONS -------- 1. Sinus rhythm. 2. This was a technically good study. 3. The left ventricular size is normal. 4. Left ventricular wall thickness is normal. 5. Overall left ventricular systolic function is normal with, an EF between 55 - 60 %. 6. The diastolic filling pattern is normal for the age of the patient 9.48 7. The right ventricle is normal in size. 8. The left atrial size is normal. 9. Normal LA size by volume 22+/-6 ml/m2. 10. The right atrial size is normal. 11. Eustachian valve seen in the right atrium (normal finding). 12. The aortic valve is trileaflet and appears structurally normal. 13. Trace amount of aortic regurgitation. 14. The mitral valve is normal. 15. The mitral valve leaflets are mildly thickened. 16. Mild mitral regurgitation is present. 17. The tricuspid valve appears structurally normal. 18. Mild tricuspid regurgitation present. 19. Right ventricular systolic pressure is normal at < 35 mmHg. 20. There is no pulmonic regurgitation present. 21. The aortic root size is normal. 22. Normal inferior vena cava with normal inspiratory collapse consistent with estimated right atrial pressure of 5 mmHg. 23. There is a trivial pericardial effusion present. PROCESS PUMPER: Charline Alford RDCS
--- NOTE | 2019-07-04 11:10 | P.CRDCN ---
History of Present Illness History of present illness: HISTORY OF PRESENTING ILLNESS This is a pleasant 79-year-old female past medical history significant for COPD on home oxygen and former nicotine dependence. 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 We have been asked to see in consultation for hypertension. She is seen and examined sitting at the edge of the bed after walking back from the bathroom. She is quite dyspneic. She presented to the hospital with symptoms of worsening shortness of breath. She has been diagnosed with acute tracheobronchitis and is currently receiving IV steroids, oral antibiotics and updraft treatments. She states whenever she gets up to do any minimal activity her breathing becomes labored and she can feel her heart racings rapidly. She denies chest pain, dizziness, nausea or vomiting. Blood pressures have been consistently elevated above 140 sometimes as high as 170. She denies any prior diagnosis of hypertension and is not currently prescribed an anti-hypertensive. EKG on arrival reveals sinus tachycardia heart rate 106, left anterior fasicular block and non-specific ST abnormalities. Chest xray on arrival reveals COPD, mild fibrotic changes and improvement in fluid at lung bases compared to previously. No acute heart failure. Laboratory data reviewed, WBC 9.8, hgb 13.9, plt 240, sodium 136, potassium 3.9, creatinine 0.59 and COVID 19 negative. Most recent echocardiogram obtained 12/2017 revealed preserved LV systolic function with EF greater than 55%, mild TR and no evidence of pulmonary hypertension. REVIEW OF SYSTEMS At the time of my exam: CONSTITUTIONAL: Denies fever or chills. CARDIOVASCULAR: Denies chest pain,orthopnea, PND or palpitations. RESPIRATORY: Complains of cough and shortness of breath both at rest and with exertion. GASTROINTESTINAL: Denies abdominal pain, diarrhea, constipation, nausea or vomiting. MUSCULOSKELETAL: Denies myalgias. NEUROLOGIC: Denies numbness, tingling or weakness. ENDOCRINE: Denies fatigue, weight change, polydipsia or polyurina. GENITOURINARY: Denies burning, hematuria or urgency with micturation. HEMATOLOGIC: Denies history of anemia or bleeding. PHYSICAL EXAMINATION Blood pressure 163/79 heart rate 62 afebrile and maintaining oxygen saturation on nasal cannula. CONSTITUTIONAL: No apparent distress. Frail. HEENT: Head is normocephalic. Pupils are equal, round. Sclerae anicteric. Mucous membranes of the mouth are moist. No JVD. No carotid bruit. CHEST EXAMINATION: Expiratory wheezes, no rales or rhonchi. Diminished bilaterally. No chest wall tenderness is noted on palpation or with deep breathing. HEART EXAMINATION: Regular rate and rhythm. S1, S2 heard. No murmurs, gallops or rub. Distant heart sounds. ABDOMEN: Soft, nontender. Positive bowel sounds. EXTREMITIES: 2+ peripheral pulses, no lower extremity edema and no calf tenderness. NEUROLOGIC EXAMINATION: Patient is awake, alert and oriented x3. ASSESSMENT Acute exacerbation of chronic COPD Tracheobronchitis Hypertension PLAN Clinically she is euvolemic. Initiate losartan 25 mg daily for optimal blood pressure control. This can be increase as needed to control her blood pressures. Echocardiogram has been ordered and will be reviewed. We will follow as needed. Thank you kindly for this consultation. Nurse Practitioner note has been reviewed, I agree with a documented findings and plan of care. Patient was seen and examined. Past Medical History Past Medical History: COPD, Pneumonia, Respiratory Disorder Additional Past Medical History / Comment(s): cataracts(sx done), "bruises easily-thin fragile skin", lower dental bridge. History of Any Multi-Drug Resistant Organisms: None Reported Past Surgical History: Appendectomy, Tonsillectomy Additional Past Surgical History / Comment(s): Bilateral cataracts Past Anesthesia/Blood Transfusion Reactions: No Reported Reaction Past Psychological History: No Psychological Hx Reported Smoking Status: Former smoker Past Alcohol Use History: None Reported Additional Past Alcohol Use History / Comment(s): started smoking age 16 smokes 1 ppd Past Drug Use History: None Reported - Past Family History Mother Family Medical History: Myocardial Infarction (OK) Additional Family Medical History / Comment(s): Mother from a ruptured brain aneurysm, history of a heart attack Father Family Medical History: Diabetes Mellitus Additional Family Medical History / Comment(s): "heart problems" Father from bladder cancer , Medications and Allergies Home Medications Medication Instructions Recorded Confirmed Type Albuterol Inhaler (Bulk) [Ventolin 1 - 2 puff INHALATION RT-Q4H PRN 07/11/18 06/28/19 History Hfa Inhaler (Bulk)] Loratadine [Claritin] 10 mg PO DAILY 07/11/18 06/28/19 History Umeclidinium Brm/Vilanterol Tr 1 puff INHALATION RT-DAILY 07/11/18 06/28/19 History [Anoro Ellipta 62.5-25 Mcg INH] Ipratropium-Albuterol Nebulize 3 ml INHALATION RT-QID #30 07/21/18 06/28/19 Rx [Duoneb 0.5 mg-3 mg/3 ml Soln] ampul.neb Budesonide-Formot 160-4.5 Mcg 2 puff INHALATION RT-BID 06/28/19 06/28/19 History [Symbicort 160-4.5 Mcg Inhaler] Fluticasone Nasal [place] [Flonase 2 spr EA NOSTRIL BID 06/28/19 06/28/19 History Nasal [place]] Multivitamins, Thera [Multivitamin 1 tab PO Q48H 06/28/19 06/28/19 History (formulary)] guaiFENesin [Mucinex] 600 mg PO Q12HR PRN 06/28/19 06/28/19 History Allergies Allergy/AdvReac Type Severity Reaction Status Date / Time aspirin AdvReac excessive Verified 06/28/19 08:36 brusing Physical Exam Vitals: Vital Signs Temp Pulse Pulse Resp BP Pulse Ox 07/04/19 07:13 98.2 F 62 15 163/79 97 07/04/19 04:00 20 07/04/19 01:30 97.8 F 64 22 154/71 95 07/04/19 00:00 22 07/03/19 20:00 22 07/03/19 19:30 97.6 F 73 24 161/82 98 07/03/19 14:19 98.8 F 76 16 148/75 96 Intake and Output 07/03/19 07/04/19 07/04/19 22:59 06:59 14:59 Intake Total 700 100 240 Output Total 1 Balance 699 100 240 Intake: Oral 700 100 240 Output: Stool 1 Other: Voiding Method Bedside Commode # Voids 3 Weight 49.1 kg Results 07/03/19 07:06 07/03/19 07:06 Current Medications Generic Name Dose Route Start Last Admin Trade Name Freq PRN Reason Stop Dose Admin Albuterol Sulfate 2 puff 06/29/19 08:00 07/04/19 08:38 Ventolin Hfa Inhaler INHALATION 2 puff RT-QID RUBIN Administration Alprazolam 0.5 mg 06/29/19 09:41 06/29/19 10:01 Xanax PO 0.5 mg QID PRN Administration Anxiety Azithromycin 500 mg 06/29/19 21:00 07/03/19 21:09 Zithromax PO 500 mg Q24H RUBIN Administration Benzonatate 100 mg 06/29/19 09:45 07/04/19 08:11 Tessalon Perles PO 100 mg TID RUBIN Administration Budesonide/Formoterol Fumarate 2 puff 06/29/19 08:00 07/03/19 19:40 Symbicort 160-4.5 Mcg Inhaler INHALATION 2 puff RT-BID RUBIN Administration Cholestyramine Resin 4 gm 06/30/19 18:00 07/04/19 08:06 Questran PO Not Given TID BETWEEN MEALS [facility] Enoxaparin Sodium 40 mg 06/28/19 09:00 07/04/19 08:11 Lovenox SQ 40 mg DAILY RUBIN Administration Guaifenesin 200 mg 06/29/19 09:42 06/29/19 16:53 Robitussin PO 200 mg Q6H PRN Administration Cough Guaifenesin 600 mg 06/29/19 09:45 07/04/19 08:11 Mucinex PO 600 mg Q12HR RUBIN Administration Insulin Aspart 0 unit 06/30/19 17:30 07/04/19 07:26 Novolog SQ Not Given ACHS [facility] Protocol Loratadine 10 mg 06/28/19 09:30 07/04/19 08:11 Claritin PO 10 mg DAILY RUBIN Administration Methylprednisolone Sodium Succinate 40 mg 06/28/19 12:00 07/04/19 05:41 Solu-Medrol IV 40 mg Q6HR RUBIN Administration Tiotropium [place] 1 puff 06/29/19 11:28 07/03/19 08:30 Spiriva INHALATION 1 puff RT-DAILY RUBIN Administration Intake and Output 07/03/19 07/04/19 07/04/19 22:59 06:59 14:59 Intake Total 700 100 240 Output Total 1 Balance 699 100 240 Intake: Oral 700 100 240 Output: Stool 1 Other: Voiding Method Bedside Commode # Voids 3 Weight 49.1 kg 07/03/19 07:06 07/03/19 07:06
[2019-07-04] MEDS: TIOTROPIUM 18 MCG/PUFF INHALER INHALATION SCH (11:45)
[2019-07-04] MEDS: SYMBICORT 160-4.5 MCG INHALER INHALATION SCH ×2 (11:46→19:50)
[2019-07-04 11:58] LABS: Glucose,Whole Blood 104 mg/dL (75-99)
[2019-07-04] MEDS: LOSARTAN 25 MG TAB PO SCH (12:22)
--- NOTE | 2019-07-04 14:01 | P.PN ---
Subjective Progress Note Date: 07/04/19 Principal diagnosis: Acute exacerbation of chronic obstructive pulmonary, Covid 19 infection has been ruled out On 06/30/2019 patient seen in follow-up selective care unit, she is awake and alert, in no acute distress, she is currently on 5 L of oxygen with a pulse ox of 96% which can probably be further weaned. She is afebrile, vital signs are stable. Patient is on IV steroids, updraft treatments, Tessalon Perles. Her Covid 19 test was negative. Her chest x-ray on admission showed no acute lung disease. Mild tachypnea, but no acute distress. Lung sounds are diminished physical exam. On 07/04/2019 patient seen in follow-up on general medical floor, she sounded better today, she is improving, breathing easier, she remains on 3 L of oxygen with a pulse ox of 95-97%, no acute events overnight, his been afebrile. He remains on combination of IV Solu-Medrol, azithromycin, Spiriva, and albuterol, she is improving. No acute events overnight Objective - Vital Signs Vital signs: Vital Signs Temp 98.2 F 07/04/19 07:13 Pulse 62 07/04/19 07:13 Resp 15 07/04/19 08:00 BP 163/79 07/04/19 07:13 Pulse Ox 97 07/04/19 07:13 Intake & Output 07/03/19 07/04/19 07/04/19 18:59 06:59 18:59 Intake Total 980 340 240 Output Total 1 Balance 980 339 240 Weight 49.1 kg Intake: Oral 980 340 240 Output: Stool 1 Other: Voiding Method Bedside Commode Bedside Commode # Voids 2 3 - Exam GENERAL EXAM: Alert, very pleasant, cachectic 79-year-old white female, on 5 L of oxygen with a pulse ox of 96%, comfortable in no apparent distress. HEAD: Normocephalic/atraumatic. EYES: Normal reaction of pupils, equal size. Conjunctiva pink, sclera white. NOSE: Clear with pink turbinates. THROAT: No erythema or exudates. NECK: No masses, no JVD, no thyroid enlargement, no adenopathy. CHEST: No chest wall deformity. Symmetrical expansion. LUNGS: Diminished air entry with no crackles, wheeze, rhonchi or dullness. CVS: Regular rate and rhythm, normal S1 and S2, no gallops, no murmurs, no rubs ABDOMEN: Soft, nontender. No hepatosplenomegaly, normal bowel sounds, no guarding or rigidity. EXTREMITIES: No clubbing, no edema, no cyanosis, 2+ pulses and upper and lower extremities. MUSCULOSKELETAL: Muscle strength and tone normal. SPINE: No scoliosis or deformity SKIN: No rashes CENTRAL NERVOUS SYSTEM: Alert and oriented -3. No focal deficits, tone is normal in all 4 extremities. PSYCHIATRIC: Alert and oriented -3. Appropriate affect. Intact judgment and insight. - Labs CBC & Chem 7: 07/03/19 07:06 07/03/19 07:06 Labs: Abnormal Lab Results - Last 24 Hours (Table) 07/03/19 07/03/19 07/04/19 Range/Units 16:23 20:14 07:15 POC Glucose (mg/dL) 135 H 124 H 109 H (75-99) mg/dL 07/04/19 Range/Units 11:56 POC Glucose (mg/dL) 104 H (75-99) mg/dL Microbiology - Last 24 Hours (Table) 06/27/19 23:34 Blood Culture - Final Blood No Growth after 144 hours Assessment and Plan Plan: Assessment: #1. Acute exacerbation of chronic obstructive pulmonary disease, COVID 19 was negative, chest x-ray showed no acute pulmonary process #2. Previous episodes of pneumonia #3. Advanced COPD, on home oxygen, baseline FEV1 of 49% of predicted, maintained on Anoro and albuterol #4. Nicotine dependence, currently in remission, carries greater than 50 years of smoking history #5. Bilateral cataracts #6. 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 Poor overall functional performance based on the above-mentioned multiple comorbidities Plan: Continue current medical treatment, patient is breathing easier today, and sounding less bronchospastic, would continue with IV steroids, inhalers, and az ithromycin, patient is improving, may consider discharge in next 24 hours. I performed a history & physical examination of the patient and discussed their management with my nurse practitioner, Leni Zarco. I reviewed the nurse practitioner's note and agree with the documented findings and plan of care. Lung sounds are positive for diminished breath sounds. The findings and the impression was discussed with the patient. I attest to the documentation by the nurse practitioner. Time with Patient: Less than 30
--- NOTE | 2019-07-04 14:42 | P.PN ---
Subjective Progress Note Date: 07/04/19 This is a 79-year-old female in with acute COPD exacerbation with purulent tracheobronchitis and multiple other medical issues. Maintained on IV antibiotics, nebulized bronchodilators, IV steroids with significant clinical improvement, less wheezing. Blood sugars controlled. Tested negative for coronavirus. Currently maintaining O2 sats in the 90s on 4 L nasal cannula O2 in a patient who normally wears 3 L at home. Denies chest pain, palpitations or shortness of breath. Afebrile, normal WBC. 07/02/2019 maintained on nebulized bronchodilators, IV steroids, Zithromax ,breathing continues to improve. Maintaining O2 sats in the high 90s on 3lnc O2. Afebrile. States chest pain, palpitations or increased shortness of breath. 07/04/2019 maintaining O2 sats in the 90s on 3 L nasal cannula, continues to complain of significant exertional dyspnea which is new for her. Occasional productive cough. Denies chest pain, palpitations or shortness of breath. Afebrile. Objective - Vital Signs Vital signs: Vital Signs Temp 98.2 F 07/04/19 07:13 Pulse 62 07/04/19 07:13 Resp 15 07/04/19 08:00 BP 163/79 07/04/19 07:13 Pulse Ox 97 07/04/19 07:13 Intake & Output 07/03/19 07/04/19 07/04/19 18:59 06:59 18:59 Intake Total 980 340 240 Output Total 1 Balance 980 339 240 Weight 49.1 kg Intake: Oral 980 340 240 Output: Stool 1 Other: Voiding Method Bedside Commode Bedside Commode # Voids 2 3 - Exam PHYSICAL EXAM: VITAL SIGNS: As above GENERAL: Cachectic, Sitting up in bed, no acute distress HEENT: Conjunctivae normal. eyes normal. NECK: No JVD. No thyroid enlargement. No LNs CARDIOVASCULAR: S1, S2 regular.. No murmur RESPIRATION: Unlabored. Breath sounds diminished in the bases. No rhonchi , occasional fine bibasilar crackles. Less scattered expiratory wheezing. ABDOMEN: Soft, nontender . No guarding. no masses palpable. Bowel sounds heard. LEGS: No edema. no swelling PSYCHIATRY: Alert and oriented X3, mood and affect normal. NERVOUS SYSTEM: Cranial N 2-12 grossly normal. Moves all 4 limbs. No focal deficits. Strength and sensation grossly intact.. Skin: no rash Microbiology 06/27/19 23:34 Blood Blood Culture - Final No Growth after 144 hours - Labs CBC & Chem 7: 07/03/19 07:06 07/03/19 07:06 Labs: Abnormal Lab Results - Last 24 Hours (Table) 07/03/19 07/03/19 07/03/19 Range/Units 11:15 16:23 20:14 POC Glucose (mg/dL) 113 H 135 H 124 H (75-99) mg/dL 07/04/19 Range/Units 07:15 POC Glucose (mg/dL) 109 H (75-99) mg/dL Microbiology - Last 24 Hours (Table) 06/27/19 23:34 Blood Culture - Final Blood No Growth after 144 hours Assessment and Plan Assessment: Acute COPD exacerbation with purulent tracheobronchitis Acute on chronic hypoxic and hypercapnic respiratory failure, wears 3 L nasal cannula O2 at home Accelerated hypertension secondary to the above History of pneumonia, tested negative for coronavirus Former extensive nicotine dependence Moderate protein malnutrition, BMI 15.6 secondary to advanced COPD Plan: Continue on current medication regime ,monitoring and symptomatic treatment. Slowly improving , still with significant exertional dyspnea . Maintain IV antibiotics, nebulized bronchodilators, IV steroids. Maintain aggressive pulmonary toileting with incentive spirometer reinforced. Increase activity as tolerated. Discharge planning in progress soon. The impression and plan of care has been dictated as directed. : I performed a history and examination of this patient, discussed the same with the dictator. I agree with the dictator's note ,documented as a scribe. Any additional findings or plans will be noted.
[2019-07-04 16:53] LABS: Glucose,Whole Blood 116 mg/dL (75-99)
[2019-07-04 20:41] LABS: Glucose,Whole Blood 137 mg/dL (75-99)
[2019-07-04] MEDS: AZITHROMYCIN 500 MG TAB PO SCH (21:44)
[2019-07-05] MEDS: methylPREDNISolone SOD SUCCI 40 MG/ML 1 ML VIAL IV SCH ×4 (00:03→17:38)
[2019-07-05] MEDS: guaiFENesin SYRUP 100MG/5ML 200 MG/10 ML CUP PO PRN ×3 (00:04→16:23)
[2019-07-05] MEDS: ALPRAZolam 0.5 MG TAB PO PRN ×3 (00:04→16:23)
[2019-07-05 06:58] LABS: Glucose,Whole Blood 118 mg/dL (75-99)
[2019-07-05] MEDS: ALBUTEROL HFA INHALER INHALATION SCH ×4 (07:22→19:57)
[2019-07-05] MEDS: SYMBICORT 160-4.5 MCG INHALER INHALATION SCH ×2 (07:22→19:57)
[2019-07-05] MEDS: INSULIN ASPART (NovoLOG) 100 UNIT/ML VIAL SQ SCH ×4 (07:30→21:35)
[2019-07-05] MEDS: LORATADINE 10 MG TAB PO SCH (07:36)
[2019-07-05] MEDS: ENOXAPARIN 40 MG/0.4 ML SYRINGE SQ SCH (07:36)
[2019-07-05] MEDS: LOSARTAN 25 MG TAB PO SCH (07:36)
[2019-07-05] MEDS: guaiFENesin 600 MG TABLET.ER PO SCH ×2 (07:37→21:35)
[2019-07-05] MEDS: BENZONATATE 100 MG CAP PO SCH ×3 (07:37→21:35)
[2019-07-05] MEDS: CHOLESTYRAMINE (WITH SUGAR) 4 GM PACKET PO SCH ×3 (07:37→11:35)
[2019-07-05] MEDS ORDERED: methylPREDNISolone SOD SUCCI 125 MG/2 ML VIAL IV ONE (09:52)
[2019-07-05] MEDS: TIOTROPIUM 18 MCG/PUFF INHALER INHALATION SCH (11:08)
[2019-07-05 12:01] LABS: Glucose,Whole Blood 135 mg/dL (75-99)
--- NOTE | 2019-07-05 12:54 | P.PN ---
Subjective Progress Note Date: 07/05/19 Principal diagnosis: Acute exacerbation of chronic obstructive pulmonary disease, CoVID 19 screening negative The patient is seen today on 07/05/2019 in follow-up in the regular medical floor. She is currently sitting up in bed. Awake and alert in no acute distress. She had an episode of difficulty breathing earlier this morning. She was given IV Solu-Medrol. She is currently nearly back to her baseline. She remains dyspneic with minimal exertion. Maintaining good O2 saturations on 3 L/m per nasal cannula. Afebrile. Hemodynamically stable. Blood cultures reveal no growth. Glucose 135. She is continued on Symbicort, Spiriva, albuterol, IV Solu-Medrol. Antibiotics in the form of ceftriaxone. She is on Mucinex and Robitussin. Lovenox for DVT prophylaxis. Objective - Vital Signs Vital signs: Vital Signs Temp 97.9 F 07/05/19 07:55 Pulse 78 07/05/19 07:55 Resp 16 07/05/19 07:55 BP 146/67 07/05/19 07:55 Pulse Ox 98 07/05/19 07:55 Intake & Output 07/04/19 07/05/19 07/05/19 18:59 06:59 18:59 Intake Total 600 Balance 600 Weight 53 kg Intake: Oral 600 Other: Voiding Method Bedside Commode # Voids 1 2 - Exam GENERAL EXAM: Alert, very pleasant frail, cachectic 79-year-old female patient, on 3 L nasal cannula, comfortable in no apparent distress. HEAD: Normocephalic. EYES: Normal reaction of pupils, equal size. NOSE: Clear with pink turbinates. THROAT: No erythema or exudates. NECK: No masses, no JVD. CHEST: No chest wall deformity. LUNGS: Equal air entry with end expiratory wheeze, diminished CVS: S1 and S2 normal with no audible murmur, regular rhythm. ABDOMEN: No hepatosplenomegaly, normal bowel sounds, no guarding or rigidity. SPINE: No scoliosis or deformity SKIN: No rashes CENTRAL NERVOUS SYSTEM: No focal deficits, tone is normal in all 4 extremities. EXTREMITIES: There is no peripheral edema. No clubbing, no cyanosis. Peripheral pulses are intact. - Labs CBC & Chem 7: 07/03/19 07:06 07/03/19 07:06 Labs: Abnormal Lab Results - Last 24 Hours (Table) 07/04/19 07/04/19 07/05/19 Range/Units 16:51 20:37 06:57 POC Glucose (mg/dL) 116 H 137 H 118 H (75-99) mg/dL 07/05/19 Range/Units 11:59 POC Glucose (mg/dL) 135 H (75-99) mg/dL Assessment and Plan Assessment: #1. Acute exacerbation of chronic obstructive pulmonary disease, COVID 19 was negative, chest x-ray showed no acute pulmonary process #2. Previous episodes of pneumonia #3. Advanced COPD, on home oxygen, baseline FEV1 of 49% of predicted, maintained on Anoro and albuterol #4. Nicotine dependence, currently in remission, carries greater than 50 years of smoking history #5. Bilateral cataracts #6. 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 Poor overall functional performance based on the above-mentioned multiple comorbidities Plan: The patient was seen and evaluated by Dr. Granados Still not quite back to her baseline Continue the current treatment plan We'll continue to follow I, the cosigning physician, performed a history & physical examination of the patient. Lungs sounds end expiratory wheeze, diminished Maintaining good O2 saturations in the 90s on 3 L/m per nasal cannula. I discussed the assessment and plan of care with my nurse practitioner, Darlene Underwood. I attest to the above note as dictated by her.
[2019-07-05 17:07] LABS: Glucose,Whole Blood 137 mg/dL (75-99)
[2019-07-05 21:10] LABS: Glucose,Whole Blood 150 mg/dL (75-99)
[2019-07-05] MEDS: AZITHROMYCIN 500 MG TAB PO SCH (21:35)
[2019-07-06] MEDS: methylPREDNISolone SOD SUCCI 40 MG/ML 1 ML VIAL IV SCH ×4 (00:31→17:48)
[2019-07-06 06:54] LABS: Glucose,Whole Blood 107 mg/dL (75-99)
[2019-07-06] MEDS: INSULIN ASPART (NovoLOG) 100 UNIT/ML VIAL SQ SCH ×4 (07:00→21:04)
[2019-07-06] MEDS: TIOTROPIUM 18 MCG/PUFF INHALER INHALATION SCH (07:42)
[2019-07-06] MEDS: SYMBICORT 160-4.5 MCG INHALER INHALATION SCH ×2 (07:42→20:34)
[2019-07-06] MEDS: ALBUTEROL HFA INHALER INHALATION SCH ×4 (07:42→20:33)
[2019-07-06] MEDS: CHOLESTYRAMINE (WITH SUGAR) 4 GM PACKET PO SCH ×3 (07:57→17:45)
[2019-07-06] MEDS: BENZONATATE 100 MG CAP PO SCH ×3 (07:59→21:04)
[2019-07-06] MEDS: LOSARTAN 25 MG TAB PO SCH (07:59)
[2019-07-06] MEDS: ENOXAPARIN 40 MG/0.4 ML SYRINGE SQ SCH (07:59)
[2019-07-06] MEDS: guaiFENesin 600 MG TABLET.ER PO SCH ×2 (07:59→21:04)
[2019-07-06] MEDS: LORATADINE 10 MG TAB PO SCH (07:59)
[2019-07-06 09:11] VITALS: RESP 18
--- NOTE | 2019-07-06 11:49 | PN ---
PROGRESS NOTE 79-year-old white female, worsening shortness of breath, phlegm production, started on Solu-Medrol, Rocephin and azithromycin for worsening breathing. Cardiovascular: S1-S2. Lungs scattered wheeze x4. HEMATOLOGY: Negative Homans. ASSESSMENT: Hypertension acceleration. Blood pressure medications will be continued. Continue on current medications including antibiotics and Solu-Medrol, etc. Follow up next 24 to 48 hours. MMODL / IJN: [id number] /
[2019-07-06 11:56] LABS: Glucose,Whole Blood 103 mg/dL (75-99)
--- NOTE | 2019-07-06 11:59 | P.PN ---
Subjective Progress Note Date: 07/06/19 Principal diagnosis: Acute exacerbation of chronic obstructive pulmonary disease, CoVID 19 screening negative The patient is seen today on 07/05/2019 in follow-up in the regular medical floor. She is currently sitting up in bed. Awake and alert in no acute distress. She had an episode of difficulty breathing earlier this morning. She was given IV Solu-Medrol. She is currently nearly back to her baseline. She remains dyspneic with minimal exertion. Maintaining good O2 saturations on 3 L/m per nasal cannula. Afebrile. Hemodynamically stable. Blood cultures reveal no growth. Glucose 135. She is continued on Symbicort, Spiriva, albuterol, IV Solu-Medrol. Antibiotics in the form of ceftriaxone. She is on Mucinex and Robitussin. Lovenox for DVT prophylaxis. The patient is seen today July 06 2019 in follow-up on the regular medical floor. She is awake and alert in no acute distress. She is still having ongoing issues with dyspnea on minimal exertion. Still some loose nonproductive cough. She is maintaining good O2 saturations in the mid 90s on 3 L/m per nasal cannula. She's been afebrile. She remains on Symbicort, Spiriva, albuterol. Antibiotics in the form of ceftriaxone and azithromycin. She remains on Tessalon Perles, Mucinex, Claritin. Lovenox for DVT prophylaxis. Objective - Vital Signs Vital signs: Vital Signs Temp 98.6 F 07/06/19 07:00 Pulse 68 07/06/19 07:00 Resp 18 07/06/19 07:00 BP 142/84 07/06/19 07:00 Pulse Ox 95 07/06/19 07:00 Intake & Output 07/05/19 07/06/19 07/06/19 18:59 06:59 18:59 Intake Total 100 100 Balance 100 100 Weight 53.3 kg Intake: Oral 100 100 Other: # Voids 1 1 - Exam GENERAL EXAM: Alert, very pleasant frail, cachectic 79-year-old female patient, on 3 L nasal cannula, comfortable in no apparent distress. HEAD: Normocephalic. EYES: Normal reaction of pupils, equal size. NOSE: Clear with pink turbinates. THROAT: No erythema or exudates. NECK: No masses, no JVD. CHEST: No chest wall deformity. LUNGS: Equal air entry with few scattered rhonchi, end expiratory wheeze, diminished CVS: S1 and S2 normal with no audible murmur, regular rhythm. ABDOMEN: No hepatosplenomegaly, normal bowel sounds, no guarding or rigidity. SPINE: No scoliosis or deformity SKIN: No rashes CENTRAL NERVOUS SYSTEM: No focal deficits, tone is normal in all 4 extremities. EXTREMITIES: There is no peripheral edema. No clubbing, no cyanosis. Peripheral pulses are intact. - Labs CBC & Chem 7: 07/03/19 07:06 07/03/19 07:06 Labs: Abnormal Lab Results - Last 24 Hours (Table) 07/05/19 07/05/19 07/05/19 Range/Units 11:59 17:05 21:08 POC Glucose (mg/dL) 135 H 137 H 150 H (75-99) mg/dL 07/06/19 Range/Units 06:52 POC Glucose (mg/dL) 107 H (75-99) mg/dL Assessment and Plan Assessment: #1. Acute exacerbation of chronic obstructive pulmonary disease, COVID 19 was negative, chest x-ray showed no acute pulmonary process #2. Previous episodes of pneumonia #3. Advanced COPD, on home oxygen, baseline FEV1 of 49% of predicted, maintained on Anoro and albuterol #4. Nicotine dependence, currently in remission, carries greater than 50 years of smoking history #5. Bilateral cataracts #6. 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 Poor overall functional performance based on the above-mentioned multiple comorbidities Plan: The patient was seen and evaluated by Dr. Granados Still not quite back to her baseline Continue IV Solu-Medrol, Symbicort, Spiriva, albuterol Antibiotics in the form of ceftriaxone and azithromycin She remains on Tessalon Perles, Mucinex, Claritin Discharge planning We'll continue to follow I, the cosigning physician, performed a history & physical examination of the patient. Lungs sounds with few scattered rhonchi, end expiratory wheeze, diminished Maintaining good O2 saturations in the 90s on 3 L/m per nasal cannula. I discussed the assessment and plan of care with my nurse practitioner, Darlene Underwood. I attest to the above note as dictated by her.
[2019-07-06 17:02] LABS: Glucose,Whole Blood 117 mg/dL (75-99)
[2019-07-06 20:56] LABS: Glucose,Whole Blood 144 mg/dL (75-99)
[2019-07-06] MEDS: AZITHROMYCIN 500 MG TAB PO SCH (21:15)
[2019-07-07] MEDS: methylPREDNISolone SOD SUCCI 40 MG/ML 1 ML VIAL IV SCH ×3 (00:10→13:17)
--- NOTE | 2019-07-07 01:27 | PN ---
PROGRESS NOTE This 79-year-old white female with COPD, hypoxemia, tracheobronchitis. She is ambulating better with a walker on 2 L oxygen. Possible discharge home tomorrow. CARDIOVASCULAR: S1,S2. LUNGS: Decreased breath sounds x4, scattered wheeze x4. ASSESSMENT: 1. Chronic obstructive pulmonary disease exacerbation. 2. Tracheobronchitis. 3. Acute hypoxemic respiratory failure. Continue with steroid tapering, antibiotics, updraft treatments. Possible discharge home tomorrow. MMODL / IJN: [id number] /
[2019-07-07 04:18] VITALS: PULSE 66
[2019-07-07 06:48] LABS: Glucose,Whole Blood 112 mg/dL (75-99)
[2019-07-07] MEDS: INSULIN ASPART (NovoLOG) 100 UNIT/ML VIAL SQ SCH ×2 (07:16→13:16)
[2019-07-07] MEDS: ALBUTEROL HFA INHALER INHALATION SCH ×2 (07:32→11:09)
[2019-07-07] MEDS: SYMBICORT 160-4.5 MCG INHALER INHALATION SCH (07:32)
[2019-07-07] MEDS: TIOTROPIUM 18 MCG/PUFF INHALER INHALATION SCH (07:33)
[2019-07-07] MEDS: LORATADINE 10 MG TAB PO SCH (07:45)
[2019-07-07] MEDS: LOSARTAN 25 MG TAB PO SCH (07:45)
[2019-07-07] MEDS: ENOXAPARIN 40 MG/0.4 ML SYRINGE SQ SCH (07:45)
[2019-07-07] MEDS: BENZONATATE 100 MG CAP PO SCH (07:45)
[2019-07-07] MEDS: CHOLESTYRAMINE (WITH SUGAR) 4 GM PACKET PO SCH (07:46)
[2019-07-07] MEDS: guaiFENesin 600 MG TABLET.ER PO SCH (07:46)
[2019-07-07 08:27] VITALS: BP 170/89; TEMP 98.9
[2019-07-07 11:23] LABS: Glucose,Whole Blood 129 mg/dL (75-99)
--- NOTE | 2019-07-07 12:42 | P.PN ---
Subjective Progress Note Date: 07/07/19 Principal diagnosis: Acute exacerbation of chronic obstructive pulmonary disease, CoVID 19 screening negative The patient is seen today on 07/05/2019 in follow-up in the regular medical floor. She is currently sitting up in bed. Awake and alert in no acute distress. She had an episode of difficulty breathing earlier this morning. She was given IV Solu-Medrol. She is currently nearly back to her baseline. She remains dyspneic with minimal exertion. Maintaining good O2 saturations on 3 L/m per nasal cannula. Afebrile. Hemodynamically stable. Blood cultures reveal no growth. Glucose 135. She is continued on Symbicort, Spiriva, albuterol, IV Solu-Medrol. Antibiotics in the form of ceftriaxone. She is on Mucinex and Robitussin. Lovenox for DVT prophylaxis. The patient is seen today July 06 2019 in follow-up on the regular medical floor. She is awake and alert in no acute distress. She is still having ongoing issues with dyspnea on minimal exertion. Still some loose nonproductive cough. She is maintaining good O2 saturations in the mid 90s on 3 L/m per nasal cannula. She's been afebrile. She remains on Symbicort, Spiriva, albuterol. Antibiotics in the form of ceftriaxone and azithromycin. She remains on Tessalon Perles, Mucinex, Claritin. Lovenox for DVT prophylaxis. The patient is seen today 07/07/2019 in follow-up on the regular medical floor. She is awake and alert in no acute distress. Currently sitting up at the bedside. No worsening shortness of breath cough or congestion. Still with some dyspnea on exertion. Maintaining good O2 saturations in the mid 90s on 3 L/m per nasal cannula. She's afebrile. No tachycardia. No tachypnea. Blood glucose 129. She is continued on Symbicort, Spiriva, albuterol. Lovenox for DVT prophylaxis. Continued on Solu-Medrol. Continued on Tessalon Perles, Mucinex. Objective - Vital Signs Vital signs: Vital Signs Temp 98.9 F 07/07/19 07:00 Pulse 66 07/07/19 08:00 Resp 18 07/07/19 08:00 BP 170/89 07/07/19 07:00 Pulse Ox 95 04/27/20 07:00 Intake & Output 07/06/19 07/07/19 07/07/19 18:59 06:59 18:59 Intake Total 300 100 Output Total 700 701 Balance -400 100 -701 Weight 56 kg Intake: Oral 300 100 Output: Urine 700 700 Stool 1 Other: Voiding Method Bedside Commode # Voids 3 1 1 - Exam GENERAL EXAM: Alert, very pleasant frail, cachectic 79-year-old female patient, on 3 L nasal cannula, comfortable in no apparent distress. HEAD: Normocephalic. EYES: Normal reaction of pupils, equal size. NOSE: Clear with pink turbinates. THROAT: No erythema or exudates. NECK: No masses, no JVD. CHEST: No chest wall deformity. LUNGS: Equal air entry with few scattered rhonchi, end expiratory wheeze, dimini shed CVS: S1 and S2 normal with no audible murmur, regular rhythm. ABDOMEN: No hepatosplenomegaly, normal bowel sounds, no guarding or rigidity. SPINE: No scoliosis or deformity SKIN: No rashes CENTRAL NERVOUS SYSTEM: No focal deficits, tone is normal in all 4 extremities. EXTREMITIES: There is no peripheral edema. No clubbing, no cyanosis. Peripheral pulses are intact. - Labs CBC & Chem 7: 07/03/19 07:06 07/03/19 07:06 Labs: Abnormal Lab Results - Last 24 Hours (Table) 07/06/19 07/06/19 07/07/19 Range/Units 17:00 20:55 06:47 POC Glucose (mg/dL) 117 H 144 H 112 H (75-99) mg/dL 07/07/19 Range/Units 11:22 POC Glucose (mg/dL) 129 H (75-99) mg/dL Assessment and Plan Assessment: #1. Acute exacerbation of chronic obstructive pulmonary disease, COVID 19 was negative, chest x-ray showed no acute pulmonary process #2. Previous episodes of pneumonia #3. Advanced COPD, on home oxygen, baseline FEV1 of 49% of predicted, maintained on Anoro and albuterol #4. Nicotine dependence, currently in remission, carries greater than 50 years of smoking history #5. Bilateral cataracts #6. 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 Poor overall functional performance based on the above-mentioned multiple comorbidities Plan: The patient was seen and evaluated by Dr. Maddi She is cleared for discharge from the pulmonary standpoint Convert to oral prednisone taper starting at 40 mg for 4 days Continue Symbicort, Spiriva, albuterol She remains on Tessalon Perles, Mucinex, Claritin Follow-up in our office in 2-3 weeks' time She is encouraged to call sooner if any recurrence of symptoms or other questions or concerns I, the cosigning physician, performed a history & physical examination of the patient. Lungs sounds with few scattered rhonchi, end expiratory wheeze, diminished Maintaining good O2 saturations in the 90s on 3 L/m per nasal cannula. I discussed the assessment and plan of care with my nurse practitioner, Darlene Underwood. I attest to the above note as dictated by her.
--- NOTE | 2019-07-07 13:00 | P.DS ---
Providers Date of admission: 06/28/19 00:18 Expected date of discharge: 07/07/19 Attending physician: John Sanchez Consults: 06/28/19 00:24 Consult Physician Routine Consulting Provider: Catracho Hauser Consult Reason/Comments: copd Do you want consulting provider notified?: Yes 07/03/19 17:39 Consult Physician Routine Consulting Provider: Kar Carr Consult Reason/Comments: HTN Do you want consulting provider notified?: Yes Primary care physician: Sadie Perez Hospital Course: Final Diagnoses: Acute COPD exacerbation with purulent tracheobronchitis Acute on chronic hypoxic and hypercapnic respiratory failure, wears 3 L nasal cannula O2 at home Accelerated hypertension secondary to the above History of pneumonia, tested negative for coronavirus Former extensive nicotine dependence Moderate protein malnutrition, BMI 15.6 secondary to advanced COPD Hospital course:This is a 79-year-old female in with acute COPD exacerbation with purulent tracheobronchitis and multiple other medical issues. Maintained on IV antibiotics, nebulized bronchodilators, IV steroids with significant clinical improvement, less wheezing. Blood sugars controlled. Tested negative for coronavirus. Currently maintaining O2 sats in the 90s on 4 L nasal cannula O2 in a patient who normally wears 3 L at home. Denies chest pain, palpitations or shortness of breath. Afebrile, normal WBC. 07/02/2019 maintained on nebulized bronchodilators, IV steroids, Zithromax ,breathing continues to improve. Maintaining O2 sats in the high 90s on 3lnc O2. Afebrile. States chest pain, palpitations or increased shortness of breath. 07/04/2019 maintaining O2 sats in the 90s on 3 L nasal cannula, continues to complain of significant exertional dyspnea which is new for her. Occasional productive cough. Denies chest pain, palpitations or shortness of breath. Afebrile. Significant clinical improvement. Cleared by pulmonary. Patient is being discharged home in a stable condition with guarded prognosis. The impression and plan of care has been dictated as directed. : I performed a history and examination of this patient, discussed the same with the dictator. I agree with the dictator's note ,documented as a scribe. Any additional findings or plans will be noted. Patient Condition at Discharge: Stable Plan - Discharge Summary Discharge Rx Participant: No New Discharge Prescriptions: New Losartan [Cozaar] 25 mg PO DAILY #30 tab predniSONE 10 mg PO DIRECTED #30 tab Cholestyramine (with Sugar) [Questran Packet] 4 gm PO TID BETWEEN MEALS #15 packet guaiFENesin SYRUP 100MG/5ML [Robitussin] 200 mg PO Q6H PRN ml PRN Reason: Cough Benzonatate [Tessalon Perles] 100 mg PO TID #12 cap Cefuroxime Axetil [Ceftin] 500 mg PO BID 5 Days #10 tab Continue Umeclidinium Brm/Vilanterol Tr [Anoro Ellipta 62.5-25 Mcg INH] 1 puff INHALATION RT-DAILY Loratadine [Claritin] 10 mg PO DAILY Albuterol Inhaler (Bulk) [Ventolin Hfa Inhaler (Bulk)] 1 - 2 puff INHALATION RT-Q4H PRN PRN Reason: Shortness Of Breath Or Wheezing Ipratropium-Albuterol Nebulize [Duoneb 0.5 mg-3 mg/3 ml Soln] 3 ml INHALATION RT-QID #30 ampul.neb Multivitamins, Thera [Multivitamin (formulary)] 1 tab PO Q48H guaiFENesin [Mucinex] 600 mg PO Q12HR PRN PRN Reason: congestion Fluticasone Nasal [place] [Flonase Nasal [place]] 2 spr EA NOSTRIL BID Budesonide-Formot 160-4.5 Mcg [Symbicort 160-4.5 Mcg Inhaler] 2 puff INHALATION RT-BID Discharge Medication List Albuterol Inhaler (Bulk) [Ventolin Hfa Inhaler (Bulk)] 1 - 2 puff INHALATION RT- Q4H PRN 07/11/18 [History] Loratadine [Claritin] 10 mg PO DAILY 07/11/18 [History] Umeclidinium Brm/Vilanterol Tr [Anoro Ellipta 62.5-25 Mcg INH] 1 puff INHALATION RT-DAILY 07/11/18 [History] Ipratropium-Albuterol Nebulize [Duoneb 0.5 mg-3 mg/3 ml Soln] 3 ml INHALATION RT-QID #30 ampul.neb 07/21/18 [Rx] Budesonide-Formot 160-4.5 Mcg [Symbicort 160-4.5 Mcg Inhaler] 2 puff INHALATION RT-BID 06/28/19 [History] Fluticasone Nasal [place] [Flonase Nasal [place]] 2 spr EA NOSTRIL BID 06/28/19 [History] Multivitamins, Thera [Multivitamin (formulary)] 1 tab PO Q48H 06/28/19 [History] guaiFENesin [Mucinex] 600 mg PO Q12HR PRN 06/28/19 [History] Benzonatate [Tessalon Perles] 100 mg PO TID #12 cap 07/07/19 [Rx] Cefuroxime Axetil [Ceftin] 500 mg PO BID 5 Days #10 tab 07/07/19 [Rx] Cholestyramine (with Sugar) [Questran Packet] 4 gm PO TID BETWEEN MEALS #15 packet 07/07/19 [Rx] Losartan [Cozaar] 25 mg PO DAILY #30 tab 07/07/19 [Rx] guaiFENesin SYRUP 100MG/5ML [Robitussin] 200 mg PO Q6H PRN ml 07/07/19 [Rx] predniSONE 10 mg PO DIRECTED #30 tab 07/07/19 [Rx] Follow up Appointment(s)/Referral(s): Darlene Underwood NPC [Nurse Practitioner] - 10 Days Kar Carr MD [STAFF PHYSICIAN] - 2 Weeks Sadie Perez DO [Primary Care Provider] - 3 Days Ambulatory/Diagnostic Orders: Complete Blood Count w/diff [LAB.AMB] Time Frame: 3 Days, Location: None Selected
[2019-07-08] MEDS ORDERED: predniSONE 20 MG TAB PO SCH (09:00)
== END 2019-07-07 14:42 | disposition home or self-care (01) | DRG 190 ==
LOC: EC 23:10 → 3SCARD 06-28 00:18 → 4SSUR 07-02 18:13
PROVIDERS: ADMIT Family Medicine; ATTEND Family Medicine
DX: J44.1 Chronic obstructive pulmonary disease with (acute) exacerbation (principal); J96.22 Acute and chronic respiratory failure with hypercapnia; J96.21 Acute and chronic respiratory failure with hypoxia; R64 Cachexia; Z68.1 Body mass index [BMI] 19.9 or less, adult; E44.0 Moderate protein-calorie malnutrition; J44.0 Chronic obstructive pulmonary disease with (acute) lower respiratory infection; F17.200 Nicotine dependence, unspecified, uncomplicated; F41.9 Anxiety disorder, unspecified; J20.9 Acute bronchitis, unspecified; I10 Essential (primary) hypertension; Z20.828 Contact with and (suspected) exposure to other viral communicable diseases; Z87.01 Personal history of pneumonia (recurrent); Z82.49 Family history of ischemic heart disease and other diseases of the circulatory system; Z83.3 Family history of diabetes mellitus; Z80.52 Family history of malignant neoplasm of bladder; Z90.49 Acquired absence of other specified parts of digestive tract; Z90.89 Acquired absence of other organs; Z98.42 Cataract extraction status, left eye; Z98.41 Cataract extraction status, right eye; Z99.81 Dependence on supplemental oxygen; Z79.51 Long term (current) use of inhaled steroids; Z79.52 Long term (current) use of systemic steroids
CPT/HCPCS: 36415; 71045; 80048; 80053; 83605; 83735; 83880; 84484; 85025; 85610; 85730; 87040; 87635; 93005; 93306; 94640; 94760; 96374; 96375; 99291

== ENCOUNTER 2019-07-22 18:28 | Inpatient (IN) | payer MEDICARE, BC ==
[2019-07-22] MEDS ORDERED: IPRATROPIUM-ALBUTEROL 3 ML NEB INHALATION STA (18:43)
[2019-07-22] MEDS ORDERED: methylPREDNISolone SOD SUCCI 125 MG/2 ML VIAL IV STA (18:49)
--- NOTE | 2019-07-22 19:05 | ED ---
SOB HPI - General Chief Complaint: Shortness of Breath Stated Complaint: SOB Time Seen by Provider: 07/22/19 18:33 Source: patient, RN notes reviewed Mode of arrival: wheelchair Limitations: no limitations - History of Present Illness Initial Comments: 79-year-old female presents emergency Department chief complaint of shortness of breath. Patient states Demarco worsened since Sunday. Patient states that she had admission approximate one month ago for similar reasons. Patient has severe COPD she's dirty bruits. Patient states that she has been doing her breathing treatments with minimal improvement. Patient had no fevers chills she does have productive cough with green and orangey sputum. Patient has no chest pain she does complain of some chest tightness related to her shortness of breath. Patient is on 3 L of oxygen chronically. Patient denies any headache or dizziness no nausea vomiting diarrhea constipation. - Related Data Home Medications Medication Instructions Recorded Confirmed Loratadine [Claritin] 10 mg PO DAILY 07/11/18 07/22/19 Umeclidinium Brm/Vilanterol Tr 1 puff INHALATION RT-DAILY 07/11/18 07/22/19 [Anoro Ellipta 62.5-25 Mcg INH] Budesonide-Formot 160-4.5 Mcg 2 puff INHALATION RT-BID 06/28/19 07/22/19 [Symbicort 160-4.5 Mcg Inhaler] Fluticasone Nasal [place] [Flonase 2 spr EA NOSTRIL BID 06/28/19 07/22/19 Nasal [place]] Multivitamins, Thera [Multivitamin 1 tab PO Q48H 06/28/19 07/22/19 (formulary)] guaiFENesin [Mucinex] 600 mg PO Q12HR PRN 06/28/19 07/22/19 Albuterol Sulfate [Ventolin HFA] 1 - 2 puff INHALATION RT-Q4H PRN 07/22/19 07/22/19 Furosemide [Lasix] 40 mg PO DAILY 07/22/19 07/22/19 Potassium Chloride ER [K-Dur 20] 20 meq PO DAILY 07/22/19 07/22/19 Previous Rx's Medication Instructions Recorded Ipratropium-Albuterol Nebulize 3 ml INHALATION RT-QID #30 07/21/18 [Duoneb 0.5 mg-3 mg/3 ml Soln] ampul.neb Losartan [Cozaar] 25 mg PO DAILY #30 tab 07/07/19 guaiFENesin SYRUP 100MG/5ML 200 mg PO Q6H PRN ml 07/07/19 [Robitussin] Allergies Allergy/AdvReac Type Severity Reaction Status Date / Time aspirin AdvReac excessive Verified 07/22/19 20:55 brusing Review of Systems ROS Statement: Those systems with pertinent positive or pertinent negative responses have been documented in the HPI. ROS Other: All systems not noted in ROS Statement are negative. Past Medical History Past Medical History: COPD, Pneumonia, Respiratory Disorder Additional Past Medical History / Comment(s): cataracts(sx done), "bruises ea sily-thin fragile skin", lower dental bridge. History of Any Multi-Drug Resistant Organisms: None Reported Past Surgical History: Appendectomy, Tonsillectomy Additional Past Surgical History / Comment(s): Bilateral cataracts Past Anesthesia/Blood Transfusion Reactions: No Reported Reaction Past Psychological History: No Psychological Hx Reported Smoking Status: Former smoker Past Alcohol Use History: None Reported Past Drug Use History: None Reported - Past Family History Mother Family Medical History: Myocardial Infarction (MD) Additional Family Medical History / Comment(s): Mother from a ruptured brain aneurysm, history of a heart attack Father Family Medical History: Diabetes Mellitus Additional Family Medical History / Comment(s): "heart problems" Father from bladder cancer , General Exam Limitations: no limitations General appearance: alert, in distress (Mild) Head exam: Present: atraumatic, normocephalic, normal inspection Eye exam: Present: normal appearance, PERRL, EOMI. Absent: scleral icterus, c onjunctival injection, periorbital swelling ENT exam: Present: normal exam, normal oropharynx, mucous membranes moist Neck exam: Present: normal inspection. Absent: tenderness, meningismus, lymphadenopathy Respiratory exam: Present: respiratory distress (Mild/moderate), wheezes, decreased breath sounds. Absent: normal lung sounds bilaterally, rales, rhonchi, stridor Cardiovascular Exam: Present: regular rate, normal rhythm, normal heart sounds. Absent: systolic murmur, diastolic murmur, rubs, gallop, clicks GI/Abdominal exam: Present: soft, normal bowel sounds. Absent: distended, tenderness, guarding, rebound, rigid Neurological exam: Present: alert, oriented X3, CN II-XII intact Skin exam: Present: warm, dry, intact, normal color. Absent: rash Course Vital Signs 07/22/19 07/22/19 07/22/19 18:28 19:39 19:53 Temperature 98.9 F Pulse Rate 99 99 100 Respiratory 18 Rate Blood Pressure 121/78 O2 Sat by Pulse 88 L Oximetry 07/22/19 07/22/19 07/22/19 20:00 20:30 20:50 Temperature 98.6 F Pulse Rate 98 95 94 Respiratory 20 22 20 Rate Blood Pressure 103/68 119/71 113/73 O2 Sat by Pulse 98 97 96 Oximetry Medical Decision Making - Medical Decision Making 71-year-old female presents emergency from for shortness breath. Patient's found large right-sided pneumonia. Patient does have leukocytosis, meets sepsis criteria. Patient's or gastrectomy antibiotics, blood culture. There are still some concern for possible COVID based on x-ray and symptoms. - Lab Data Result diagrams: 07/22/19 18:57 07/22/19 18:57 Lab Results 07/22/19 07/22/19 07/22/19 Range/Units 18:57 18:57 18:57 WBC 20.6 H (3.8-10.6) k/uL RBC 4.47 (3.80-5.40) m/uL Hgb 13.1 (11.4-16.0) gm/dL Hct 41.0 (34.0-46.0) % MCV 91.7 (80.0-100.0) fL MCH 29.2 (25.0-35.0) pg MCHC 31.9 (31.0-37.0) g/dL RDW 13.6 (11.5-15.5) % Plt Count 173 (150-450) k/uL Neutrophils % 92 % Lymphocytes % 1 % Monocytes % 4 % Eosinophils % 0 % Basophils % 0 % Neutrophils # 19.1 H (1.3-7.7) k/uL Lymphocytes # 0.3 L (1.0-4.8) k/uL Monocytes # 0.9 (0-1.0) k/uL Eosinophils # 0.1 (0-0.7) k/uL Basophils # 0.0 (0-0.2) k/uL PT 9.7 (9.0-12.0) sec INR 0.9 (<1.2) APTT 23.5 (22.0-30.0) sec Sodium 135 L (137-145) mmol/L Potassium 4.0 (3.5-5.1) mmol/L Chloride 97 L (98-107) mmol/L Carbon Dioxide 28 (22-30) mmol/L Anion Gap 10 mmol/L BUN 37 H (7-17) mg/dL Creatinine 0.55 (0.52-1.04) mg/dL Est GFR (CKD-EPI)AfAm >90 (>60 ml/min/1.73 sqM) Est GFR (CKD-EPI)NonAf >90 (>60 ml/min/1.73 sqM) Glucose 146 H (74-99) mg/dL Plasma Lactic Acid Andres (0.7-2.0) mmol/L Calcium 9.4 (8.4-10.2) mg/dL Magnesium 2.1 (1.6-2.3) mg/dL Total Bilirubin 2.4 H (0.2-1.3) mg/dL AST 23 (14-36) U/L ALT 17 (4-34) U/L Alkaline Phosphatase 63 (38-126) U/L Lactate Dehydrogenase (313-618) U/L Troponin I (0.000-0.034) ng/mL C-Reactive Protein (<10.0) mg/L NT-Pro-B Natriuret Pep pg/mL Total Protein 6.3 (6.3-8.2) g/dL Albumin 3.4 L (3.5-5.0) g/dL 07/22/19 07/22/19 07/22/19 Range/Units 18:57 18:57 18:57 WBC (3.8-10.6) k/uL RBC (3.80-5.40) m/uL Hgb (11.4-16.0) gm/dL Hct (34.0-46.0) % MCV (80.0-100.0) fL MCH (25.0-35.0) pg MCHC (31.0-37.0) g/dL RDW (11.5-15.5) % Plt Count (150-450) k/uL Neutrophils % % Lymphocytes % % Monocytes % % Eosinophils % % Basophils % % Neutrophils # (1.3-7.7) k/uL Lymphocytes # (1.0-4.8) k/uL Monocytes # (0-1.0) k/uL Eosinophils # (0-0.7) k/uL Basophils # (0-0.2) k/uL PT (9.0-12.0) sec INR (<1.2) APTT (22.0-30.0) sec Sodium (137-145) mmol/L Potassium (3.5-5.1) mmol/L Chloride (98-107) mmol/L Carbon Dioxide (22-30) mmol/L Anion Gap mmol/L BUN (7-17) mg/dL Creatinine (0.52-1.04) mg/dL Est GFR (CKD-EPI)AfAm (>60 ml/min/1.73 sqM) Est GFR (CKD-EPI)NonAf (>60 ml/min/1.73 sqM) Glucose (74-99) mg/dL Plasma Lactic Acid Andres 1.8 (0.7-2.0) mmol/L Calcium (8.4-10.2) mg/dL Magnesium (1.6-2.3) mg/dL Total Bilirubin (0.2-1.3) mg/dL AST (14-36) U/L ALT (4-34) U/L Alkaline Phosphatase (38-126) U/L Lactate Dehydrogenase (313-618) U/L Troponin I <0.012 (0.000-0.034) ng/mL C-Reactive Protein (<10.0) mg/L NT-Pro-B Natriuret Pep 317 pg/mL Total Protein (6.3-8.2) g/dL Albumin (3.5-5.0) g/dL 07/22/19 Range/Units 18:57 WBC (3.8-10.6) k/uL RBC (3.80-5.40) m/uL Hgb (11.4-16.0) gm/dL Hct (34.0-46.0) % MCV (80.0-100.0) fL MCH (25.0-35.0) pg MCHC (31.0-37.0) g/dL RDW (11.5-15.5) % Plt Count (150-450) k/uL Neutrophils % % Lymphocytes % % Monocytes % % Eosinophils % % Basophils % % Neutrophils # (1.3-7.7) k/uL Lymphocytes # (1.0-4.8) k/uL Monocytes # (0-1.0) k/uL Eosinophils # (0-0.7) k/uL Basophils # (0-0.2) k/uL PT (9.0-12.0) sec INR (<1.2) APTT (22.0-30.0) sec Sodium (137-145) mmol/L Potassium (3.5-5.1) mmol/L Chloride (98-107) mmol/L Carbon Dioxide (22-30) mmol/L Anion Gap mmol/L BUN (7-17) mg/dL Creatinine (0.52-1.04) mg/dL Est GFR (CKD-EPI)AfAm (>60 ml/min/1.73 sqM) Est GFR (CKD-EPI)NonAf (>60 ml/min/1.73 sqM) Glucose (74-99) mg/dL Plasma Lactic Acid Andres (0.7-2.0) mmol/L Calcium (8.4-10.2) mg/dL Magnesium (1.6-2.3) mg/dL Total Bilirubin (0.2-1.3) mg/dL AST (14-36) U/L ALT (4-34) U/L Alkaline Phosphatase (38-126) U/L Lactate Dehydrogenase 768 H (313-618) U/L Troponin I (0.000-0.034) ng/mL C-Reactive Protein 238.1 H (<10.0) mg/L NT-Pro-B Natriuret Pep pg/mL Total Protein (6.3-8.2) g/dL Albumin (3.5-5.0) g/dL Critical Care Time Critical Care Time: Yes Total Critical Care Time: 35 Critical Care Time: 35 minutes of critical care time used initial evaluate the patient though review past medical history, ordering labs EKG and chest x-ray. Patient's found to have large right lower lobe pneumonia, leukocytosis, hypoxic. Patient does have moderate amount of wrist her distress was given 2 breathing treatments, steroids, etc. antibiotics for pneumonia with sepsis. Case discussed with admitting physician. Consult to pulmonology. Disposition Clinical Impression: Acute exacerbation of chronic obstructive airways disease, Hypoxemia, Adult respiratory distress syndrome, Pneumonia, Sepsis Disposition: ADMITTED IP TO THIS HOSP Condition: Serious
[2019-07-22 19:17] LABS: Basophils % (A) 0 %; Eosinophils # (A) 0.1 k/uL (0-0.7); Eosinophils % (A) 0 %; HGB 13.1 gm/dL (11.4-16.0); Lymphocytes # (A) 0.3 k/uL (1.0-4.8); Lymphocytes % (A) 1 %; MCH 29.2 pg (25.0-35.0); MCHC 31.9 g/dL (31.0-37.0); MCV 91.7 fL (80.0-100.0); Mean Platelet Volume 8.1; Monocytes # (A) 0.9 k/uL (0-1.0); Monocytes % (A) 4 %; Neutrophils # (A) 19.1 k/uL (1.3-7.7); Neutrophils % (A) 92 %; Platelet Count 173 k/uL (150-450); RBC 4.47 m/uL (3.80-5.40); RDW 13.6 % (11.5-15.5); WBC 20.6 k/uL (3.8-10.6)
[2019-07-22 19:25] LABS: INR 0.9 (<1.2); Partial Thromboplastin Time 23.5 sec (22.0-30.0); Prothrombin Time 9.7 sec (9.0-12.0)
[2019-07-22 19:28] LABS: ALT 17 U/L (4-34); AST 23 U/L (14-36); African American GFR (CKD) >90 (>60 ml/min/1.73 sqM); Albumin 3.4 g/dL (3.5-5.0); Alkaline Phosphatase 63 U/L (38-126); Anion Gap 10 mmol/L; Blood Urea Nitrogen 37 mg/dL (7-17); Calcium 9.4 mg/dL (8.4-10.2); Carbon Dioxide 28 mmol/L (22-30); Chloride 97 mmol/L (98-107); Glucose 146 mg/dL (74-99); Magnesium 2.1 mg/dL (1.6-2.3); Non-African American GFR(CKD) >90 (>60 ml/min/1.73 sqM); Sodium 135 mmol/L (137-145); Total Bilirubin 2.4 mg/dL (0.2-1.3); Total Protein 6.3 g/dL (6.3-8.2)
[2019-07-22] MEDS ORDERED: AZITHROMYCIN 500 MG in SODIUM CHLORIDE 0.9% 250 ML IVPB STA (20:27)
[2019-07-22] MEDS ORDERED: ALBUTEROL HFA INHALER INHALATION PRN (20:30)
[2019-07-22] MEDS ORDERED: PNEUMONIA PROTOCOL UTILIZED 1 EACH MISC PO PRN (20:30)
--- NOTE | 2019-07-22 20:32 | XR ---
EXAMINATION TYPE: XR chest 2V DATE OF EXAM: 07/22/2019 COMPARISON: 06/27/2019 HISTORY: Short of breath TECHNIQUE: 2 views FINDINGS: There is extensive airspace infiltrate and consolidation in the right lung. This is mostly in the right lower lobe. There is coarse interstitial density in the lungs. There is pulmonary emphys lori. There is no heart failure. Heart size is normal. IMPRESSION: There is extensive right lower lobe pneumonia that is a change compared to old exam. COPD and pulmonary fibrosis unchanged. No heart failure seen.
[2019-07-22] MEDS ORDERED: AZITHROMYCIN 500 MG in SODIUM CHLORIDE 0.9% 250 ML IVPB ONE (22:00)
[2019-07-22] MEDS: CEFEPIME 2 GM in SODIUM CHLORIDE 0.9% 100 ML IVPB SCH (23:39)
[2019-07-22 23:42] LABS: C Reactive Protein 238.1 mg/L (<10.0)
--- NOTE | 2019-07-23 07:13 | XR ---
EXAMINATION TYPE: XR chest 1V DATE OF EXAM: 07/23/2019 HISTORY: Shortness of breath. COMPARISON: 07/22/2019 TECHNIQUE: Single view of the chest is submitted. FINDINGS: Demonstrated are scattered senescent parenchymal change. Masslike area of consolidation right midlung zone. Airspace disease right lower lobe. Overall no sign ificant change appreciated. Hyperinflation compatible with COPD. Remote granulomatous disease. The heart is stable. Hilar and mediastinal structures are within normal limits. Degenerative changes are seen of the dorsal spine. IMPRESSION: 1. Masslike area of consolidation right midlung zone. Airspace disease right lower lobe. Overall no significant change appreciated.
[2019-07-23] MEDS ORDERED: TIOTROPIUM 18 MCG/PUFF INHALER INHALATION SCH (08:00)
[2019-07-23] MEDS: ALBUTEROL HFA INHALER INHALATION SCH ×2 (08:45→11:48)
[2019-07-23] MEDS ORDERED: VANCOMYCIN IV PER PHARMACY 1 EACH MISC MISCELLANE PRN (09:52)
[2019-07-23] MEDS ORDERED: guaiFENesin 600 MG TABLET.ER PO PRN (09:54)
[2019-07-23] MEDS ORDERED: HYDROcodone/APAP 5-325MG 1 EACH TAB PO PRN (10:08)
--- NOTE | 2019-07-23 10:14 | P.HPIM ---
History of Present Illness this is a pleasant 79 years old female with past medical history of COPD, pneumonia.she follows up with Dr. Wolfe.patient presents with progressive dyspnea associated with productive cough with green yellow phlegm. No chest pain. No fever. She is on home oxygen 3 nuclear via nasal cannula. No abdominal pain, no nausea vomiting, no change in urine or bowel habits. patient showing saturation of oxygen at 97% on 4 L oxygen via nasal cannula, patient is afebrile. on admission she has leukocytosis of 20.6 K, INR and results of CBC is unremarkable. Liver enzymes not elevated, LDH is 768, C-reactive protein is 238 and ferritin is pending chest x-ray showing large masslike area of consolidation in the right mid lung zone EKG showing sinus tachycardia at 1 or [address]-T changes in the emergency room she was started on Rocephin and Zithromax, steroids and breathing treatment. Vancomycin is also added Review of Systems CONSTITUTIONAL: No fever, no malaise, no fatigue. HEENT: No recent visual problems or hearing problems. Denied any sore throat. CARDIOVASCULAR: No orthopnea, PND, no palpitations, no syncope. PULMONARY: no hemoptysis. GASTROINTESTINAL: No diarrhea, no nausea, no vomiting, no abdominal pain. Normoactive bowel sounds. NEUROLOGICAL: No headaches, no weakness, no numbness. HEMATOLOGICAL: Denies any bleeding or petechiae. GENITOURINARY: Denies any burning micturition, frequency, or urgency. MUSCULOSKELETAL/RHEUMATOLOGICAL: Denies any joint pain, swelling, or any muscle pain. ENDOCRINE: Denies any polyuria or polydipsia. Past Medical History Past Medical History: COPD, Pneumonia, Respiratory Disorder Additional Past Medical History / Comment(s): cataracts(sx done), "bruises easily-thin fragile skin", lower dental bridge. History of Any Multi-Drug Resistant Organisms: None Reported Past Surgical History: Appendectomy, Tonsillectomy Additional Past Surgical History / Comment(s): Bilateral cataracts Past Anesthesia/Blood Transfusion Reactions: No Reported Reaction Past Psychological History: No Psychological Hx Reported Smoking Status: Former smoker Past Alcohol Use History: None Reported Past Drug Use History: None Reported - Past Family History Mother Family Medical History: Myocardial Infarction (NH) Additional Family Medical History / Comment(s): Mother from a ruptured brain aneurysm, history of a heart attack Father Family Medical History: Diabetes Mellitus Additional Family Medical History / Comment(s): "heart problems" Father from bladder cancer , Medications and Allergies Home Medications Medication Instructions Recorded Confirmed Type Loratadine [Claritin] 10 mg PO DAILY 07/11/18 07/22/19 History Umeclidinium Brm/Vilanterol Tr 1 puff INHALATION RT-DAILY 07/11/18 07/22/19 History [Anoro Ellipta 62.5-25 Mcg INH] Ipratropium-Albuterol Nebulize 3 ml INHALATION RT-QID #30 07/21/18 07/22/19 Rx [Duoneb 0.5 mg-3 mg/3 ml Soln] ampul.neb Budesonide-Formot 160-4.5 Mcg 2 puff INHALATION RT-BID 06/28/19 07/22/19 History [Symbicort 160-4.5 Mcg Inhaler] Fluticasone Nasal [place] [Flonase 2 spr EA NOSTRIL BID 06/28/19 07/22/19 History Nasal [place]] Multivitamins, Thera [Multivitamin 1 tab PO Q48H 06/28/19 07/22/19 History (formulary)] guaiFENesin [Mucinex] 600 mg PO Q12HR PRN 06/28/19 07/22/19 History Losartan [Cozaar] 25 mg PO DAILY #30 tab 07/07/19 07/22/19 Rx guaiFENesin SYRUP 100MG/5ML 200 mg PO Q6H PRN ml 07/07/19 07/22/19 Rx [Robitussin] Albuterol Sulfate [Ventolin HFA] 1 - 2 puff INHALATION RT-Q4H PRN 07/22/19 07/22/19 History Furosemide [Lasix] 40 mg PO DAILY 07/22/19 07/22/19 History Potassium Chloride ER [K-Dur 20] 20 meq PO DAILY 07/22/19 07/22/19 History Allergies Allergy/AdvReac Type Severity Reaction Status Date / Time aspirin AdvReac excessive Verified 07/22/19 20:55 brusing Physical Exam Vitals: Vital Signs Temp Pulse Pulse Resp BP BP BP 07/23/19 08:10 83 15 07/23/19 07:00 97.9 F 83 15 105/70 07/23/19 02:45 97.3 F L 79 24 110/68 07/23/19 01:56 97.4 F L 76 18 104/67 07/22/19 20:50 98.6 F 94 20 113/73 07/22/19 20:30 95 22 119/71 07/22/19 20:00 98 20 103/68 07/22/19 19:53 100 07/22/19 19:39 99 07/22/19 18:28 98.9 F 99 18 121/78 Pulse Ox 07/23/19 08:10 07/23/19 07:00 97 07/23/19 02:45 95 07/23/19 01:56 97 07/22/19 20:50 96 07/22/19 20:30 97 07/22/19 20:00 98 07/22/19 19:53 07/22/19 19:39 07/22/19 18:28 88 L Intake and Output 07/22/19 07/23/19 07/23/19 22:59 06:59 14:59 Intake Total 400 400 140 Balance 400 400 140 Intake: IV 400 400 Azithromycin 500 mg In 250 250 Sodium Chloride 0.9% 250 ml @ 250 mls/hr IVPB ONCE ONE Rx#:[id number] Cefepime 2 gm In Sodium 100 100 Chloride 0.9% 100 ml @ 200 mls/hr IVPB Q12H [facility] Rx#:[id number] cefTRIAXone 1 gm In 50 50 Sodium Chloride 0.9% 50 ml @ 100 mls/hr IVPB ONCE STA Rx#:[id number] Oral 140 Other: # Voids 3 Weight 46.72 kg GENERAL: The patient is alert and oriented x3, not in any acute distress. Well developed, well nourished. HEENT: Pupils are round and equally reacting to light. EOMI. No scleral icterus. No conjunctival pallor. Normocephalic, atraumatic. No pharyngeal erythema. No thyromegaly. CARDIOVASCULAR: S1 and S2 present. No murmurs, rubs, or gallops. -PULMONARY: Chest is clear to auscultation, decreased breath sounds on the right lung with scattered wheezing ABDOMEN: Soft, nontender, nondistended, normoactive bowel sounds. No palpable organomegaly. MUSCULOSKELETAL: No joint swelling or deformity. EXTREMITIES: No cyanosis, clubbing, or pedal edema. NEUROLOGICAL: Gross neurological examination did not reveal any focal deficits. SKIN: No rashes. No petechiae Results CBC & Chem 7: 07/22/19 18:57 07/22/19 18:57 Labs: Abnormal Lab Results - Last 24 Hours (Table) 07/22/19 07/22/19 07/22/19 Range/Units 18:57 18:57 18:57 WBC 20.6 H (3.8-10.6) k/uL Neutrophils # 19.1 H (1.3-7.7) k/uL Lymphocytes # 0.3 L (1.0-4.8) k/uL Sodium 135 L (137-145) mmol/L Chloride 97 L (98-107) mmol/L BUN 37 H (7-17) mg/dL Glucose 146 H (74-99) mg/dL Total Bilirubin 2.4 H (0.2-1.3) mg/dL Lactate Dehydrogenase 768 H (313-618) U/L C-Reactive Protein 238.1 H (<10.0) mg/L Albumin 3.4 L (3.5-5.0) g/dL Thrombosis Risk Factor Assmnt - Choose All That Apply Each Factor Represents 1 point: Abnormal pulmonary function (COPD) Each Risk Factor Represents 3 Points: Age 75 years or older Thrombosis Risk Factor Assessment Total Risk Factor Score: 4 Thrombosis Risk Factor Assessment Level: Moderate Risk Assessment and Plan Assessment: masslike area of consolidation in the right mid lung zone, suspicious for right pneumonia. Cannot exclude cancer Acute COPD exacerbation hypertension Sinusitis Plan: this is a pleasant 79 years old female who presents with pneumonia and right lung mass like consolidation. COPD. Continue with antibiotic, follow-up sputum culture, continuewith steroids.pulmonary consult Labs and medication were reviewed.. Continue same treatment. Continue with symptomatic treatment. Resume home medication. Monitor lytes and vitals. DVT and GI prophylaxis. Further recommendations of the clinical course of the patient DVT prophylaxis: Subcutaneous heparin GI Prophylaxis: Pepcid PT/OT: Pending Prognosis is guarded
[2019-07-23] MEDS: HEPARIN SODIUM,PORCINE 5,000 UNIT/ML 1 ML VIAL SQ SCH ×3 (10:44→23:53)
[2019-07-23] MEDS: methylPREDNISolone SOD SUCCI 40 MG/ML 1 ML VIAL IV SCH ×2 (10:44→20:01)
[2019-07-23] MEDS: CEFEPIME 2 GM in SODIUM CHLORIDE 0.9% 100 ML IVPB SCH ×2 (10:44→23:50)
[2019-07-23] MEDS: VANCOMYCIN 750 MG in SODIUM CHLORIDE 0.9% 250 ML IVPB SCH ×2 (11:55→20:01)
[2019-07-23 12:40] LABS: Ferritin 832.5 ng/mL (10.0-291.0)
--- NOTE | 2019-07-23 13:34 | P.CNPUL ---
History of Present Illness Consult date: 07/22/19 Reason for consult: dyspnea, COPD, pneumonia History of present illness: This is a 79-year-old male patient with known history of severe oxygen-dependent COPD who presented to the emergency department last month and the patient was seen in consult by our service. The patient at that time she was having shortness of breath and she was diagnosed having COPD exacerbation and she was treated on outpatient basis with a combination of antibiotics and steroids and she was discharged home. She was having tracheal bronchitis. She was given IV antibiotics. She was given about treatments per she was given IV steroids. She did improve. She tested negative for the rao virus. At the time of discharge she was on 4 L of oxygen by nasal cannula and pulse ox is above 90% pH she typically uses 3 L of oxygen at home. At a time of discharge, she was asked to continue Anoro Ellipta in addition Symbicort maintenance in addition to to Ventolin rescue inhaler and DuoNeb nebulized treatments around the clock. The patient was also asked to take guaifenesin 600 mg every 12 hours on a when necessary basis. A CAT scan of the chest from 2018 showed moderate hyperinflation compatible with COPD with moderate upper lobe emphysematous change and parenchymal scarring in the right upper lobe. No evidence of any lung masses or tumors. The patient came in back to the emergency department on 07/22/2019 complaining of worsening shortness of breath. She was doing her breathing treatments frequently without much help. No fever. No chills. She did have a congested cough. The chest x-ray during the current admission showed an extensive right lower lobe pneumonia compared to the previous chest x-ray this was a new finding. The patient also has underlying COPD. No evidence of any heart failure. The patient was given Zithromax and admitted to the floor. The white cell count is 20.6. Troponin is less than 0.01. ProBNP level is 317. Lactic acid level is at 1.8. Covid 19 analysis still pending for now. Review of Systems Constitutional: Reports fatigue, Reports weakness Eyes: denies as per HPI, denies blurred vision, denies bulging eye, denies decreased vision, denies diplopia, denies discharge, denies dry eye, denies irritation, denies itching, denies pain, denies photophobia, denies loss of peripheral vision, denies loss of vision, denies tunnel vision/blind spots Ears: deny: decreased hearing, ear discharge, earache, tinnitus Ears, nose, mouth and throat: Denies headache, Denies sore throat Breasts: absent: as per HPI, change in shape, gynecomastia, masses, nipple discharge, pain, skin changes, swelling Cardiovascular: Reports decreased exercise tolerance, Reports dyspnea on exertion Respiratory: Reports cough, Reports dyspnea, Reports excessive sputum, Reports home oxygen, Reports respiratory infections, Reports wheezing Gastrointestinal: Reports as per HPI Genitourinary: Reports as per HPI Menstruation: Reports as per HPI Musculoskeletal: Reports as per HPI Musculoskeletal: absent: ankle pain, ankle stiffness, ankle swelling Integumentary: Reports as per HPI Neurological: Reports as per HPI Psychiatric: Reports as per HPI Endocrine: Reports as per HPI, Reports fatigue Hematologic/Lymphatic: Reports as per HPI Allergic/Immunologic: Reports as per HPI Past Medical History Past Medical History: COPD, Pneumonia, Respiratory Disorder Additional Past Medical History / Comment(s): cataracts(sx done), "bruises easily-thin fragile skin", lower dental bridge. History of Any Multi-Drug Resistant Organisms: None Reported Past Surgical History: Appendectomy, Tonsillectomy Additional Past Surgical History / Comment(s): Bilateral cataracts Past Anesthesia/Blood Transfusion Reactions: No Reported Reaction Past Psychological History: No Psychological Hx Reported Smoking Status: Former smoker Past Alcohol Use History: None Reported Additional Past Alcohol Use History / Comment(s): started smoking age 16 smoked 1 ppd Past Drug Use History: None Reported - Past Family History Mother Family Medical History: Myocardial Infarction ([place]) Additional Family Medical History / Comment(s): Mother from a ruptured brain aneurysm, history of a heart attack Father Family Medical History: Diabetes Mellitus Additional Family Medical History / Comment(s): "heart problems" Father from bladder cancer , Medications and Allergies Home Medications Medication Instructions Recorded Confirmed Type Loratadine [Claritin] 10 mg PO DAILY 07/11/18 07/22/19 History Umeclidinium Brm/Vilanterol Tr 1 puff INHALATION RT-DAILY 07/11/18 07/22/19 History [Anoro Ellipta 62.5-25 Mcg INH] Ipratropium-Albuterol Nebulize 3 ml INHALATION RT-QID #30 07/21/18 07/22/19 Rx [Duoneb 0.5 mg-3 mg/3 ml Soln] ampul.neb Budesonide-Formot 160-4.5 Mcg 2 puff INHALATION RT-BID 06/28/19 07/22/19 History [Symbicort 160-4.5 Mcg Inhaler] Fluticasone Nasal [place] [Flonase 2 spr EA NOSTRIL BID 06/28/19 07/22/19 History Nasal [place]] Multivitamins, Thera [Multivitamin 1 tab PO Q48H 06/28/19 07/22/19 History (formulary)] guaiFENesin [Mucinex] 600 mg PO Q12HR PRN 06/28/19 07/22/19 History Losartan [Cozaar] 25 mg PO DAILY #30 tab 07/07/19 07/22/19 Rx guaiFENesin SYRUP 100MG/5ML 200 mg PO Q6H PRN ml 07/07/19 07/22/19 Rx [Robitussin] Albuterol Sulfate [Ventolin HFA] 1 - 2 puff INHALATION RT-Q4H PRN 07/22/19 07/22/19 History Furosemide [Lasix] 40 mg PO DAILY 07/22/19 07/22/19 History Potassium Chloride ER [K-Dur 20] 20 meq PO DAILY 07/22/19 07/22/19 History Allergies Allergy/AdvReac Type Severity Reaction Status Date / Time aspirin AdvReac excessive Verified 07/22/19 20:55 brusing Physical Exam Vitals: Vital Signs Temp Pulse Resp BP Pulse Ox 07/22/19 20:50 98.6 F 94 20 113/73 96 07/22/19 20:30 95 22 119/71 97 07/22/19 20:00 98 20 103/68 98 07/22/19 19:53 100 07/22/19 19:39 99 07/22/19 18:28 98.9 F 99 18 121/78 88 L Intake and Output 07/22/19 07/22/19 07/22/19 06:59 14:59 22:59 Other: Weight 46.72 kg GENERAL EXAM: Alert, very pleasant frail, cachectic 79-year-old female patient, on 3 L nasal cannula, comfortable in no apparent distress. HEAD: Normocephalic. EYES: Normal reaction of pupils, equal size. NOSE: Clear with pink turbinates. THROAT: No erythema or exudates. NECK: No masses, no JVD. CHEST: No chest wall deformity. LUNGS: Equal air entry with few scattered rhonchi, end expiratory wheeze, diminished CVS: S1 and S2 normal with no audible murmur, regular rhythm. ABDOMEN: No hepatosplenomegaly, normal bowel sounds, no guarding or rigidity. SPINE: No scoliosis or deformity SKIN: No rashes CENTRAL NERVOUS SYSTEM: No focal deficits, tone is normal in all 4 extremities. EXTREMITIES: There is no peripheral edema. No clubbing, no cyano Results - Laboratory Findings CBC and BMP: 07/22/19 18:57 07/22/19 18:57 PT/INR, D-dimer PT 9.7 sec (9.0-12.0) 07/22/19 18:57 INR 0.9 (<1.2) 07/22/19 18:57 Abnormal lab findings: Abnormal Labs 07/22/19 07/22/19 18:57 18:57 WBC 20.6 H Neutrophils # 19.1 H Lymphocytes # 0.3 L Sodium 135 L Chloride 97 L BUN 37 H Glucose 146 H Total Bilirubin 2.4 H Albumin 3.4 L Assessment and Plan Plan: 1 right lower lobe pneumonia, consider hospital acquired pathogens including gram negatives as the patient was hospitalized recently in June 2019 for COPD exacerbation 2 COPD exacerbation 3 shortness of breath secondary to above 4 advanced COPD with chronic hypoxic respiratory failure admitted on oxygen at 3 L and the patient has an FEV1 of 49% of predicted at baseline and the patient has been maintained on a combination of Symbicort and Anoro in addition to albuterol and Ventolin rescue inhaler on as needed basis [id number] smoking history currently in remission 6 Severe anorexia/cachexia syndrome 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
--- NOTE | 2019-07-23 13:38 | P.PN ---
Subjective Progress Note Date: 07/23/19 This is a 79-year-old male patient with known history of severe oxygen-dependent COPD who presented to the emergency department last month and the patient was seen in consult by our service. The patient at that time she was having shortness of breath and she was diagnosed having COPD exacerbation and she was treated on outpatient basis with a combination of antibiotics and steroids and she was discharged home. She was having tracheal bronchitis. She was given IV antibiotics. She was given about treatments per she was given IV steroids. She did improve. She tested negative for the rao virus. At the time of discharge she was on 4 L of oxygen by nasal cannula and pulse ox is above 90% pH she typically uses 3 L of oxygen at home. At a time of discharge, she was asked to continue Anoro Ellipta in addition Symbicort maintenance in addition to to Ventolin rescue inhaler and DuoNeb nebulized treatments around the clock. The patient was also asked to take guaifenesin 600 mg every 12 hours on a when necessary basis. A CAT scan of the chest from 2018 showed moderate hyperinflation compatible with COPD with moderate upper lobe emphysematous change and parenchymal scarring in the right upper lobe. No evidence of any lung masses or tumors. The patient came in back to the emergency department on 07/22/2019 complaining of worsening shortness of breath. She was doing her breathing treatments frequently without much help. No fever. No chills. She did have a congested cough. The chest x-ray during the current admission showed an extensive right lower lobe pneumonia compared to the previous chest x-ray this was a new finding. The patient also has underlying COPD. No evidence of any heart failure. The patient was given Zithromax and admitted to the floor. The white cell count is 20.6. Troponin is less than 0.01. ProBNP level is 317. Lactic a nhi level is at 1.8. Covid 19 analysis still pending for now. On today's evaluation of 07/25/2019, I'm seeing this patient for a follow-up. She still is having difficulty breathing. She has a congested cough. Unable to bring up the sputum. A repeat chest x-ray was done and showed a involving the right midlung area. There is as bases also in the right lower lobe without any significant change compared to the previous chest x-ray from yesterday. This is obviously new onset consolidation and hospital-acquired pathogens need to be expected. I added cefepime. I'm going to add vancomycin also. The white cell count of 20.6. The patient is afebrile. The patient on 4 L about 2 by nasal c annula with a pulse ox of 97%. Objective - Vital Signs Vital signs: Vital Signs Temp 97.9 F 07/23/19 07:00 Pulse 83 07/23/19 08:10 Resp 15 07/23/19 08:10 BP 105/70 07/23/19 07:00 Pulse Ox 97 07/23/19 07:00 Intake & Output 07/22/19 07/23/19 07/23/19 18:59 06:59 18:59 Intake Total 800 140 Balance 800 140 Weight 46.72 kg 46.72 kg Intake: IV 800 Azithromycin 500 mg In 500 Sodium Chloride 0.9% 250 ml @ 250 mls/hr IVPB ONCE ONE Rx#:[id number] Cefepime 2 gm In Sodium 200 Chloride 0.9% 100 ml @ 200 mls/hr IVPB Q12H RUBIN Rx#:[id number] cefTRIAXone 1 gm In 100 Sodium Chloride 0.9% 50 ml @ 100 mls/hr IVPB ONCE STA Rx#:[id number] Oral 140 Other: # Voids 3 - Exam GENERAL EXAM: Alert, very pleasant frail, cachectic 79-year-old female patient, on 4 L nasal cannula, comfortable in no apparent distress. HEAD: Normocephalic. EYES: Normal reaction of pupils, equal size. NOSE: Clear with pink turbinates. THROAT: No erythema or exudates. NECK: No masses, no JVD. CHEST: No chest wall deformity. LUNGS: Equal air entry with few scattered rhonchi, end expiratory wheeze, diminished CVS: S1 and S2 normal with no audible murmur, regular rhythm. ABDOMEN: No hepatosplenomegaly, normal bowel sounds, no guarding or rigidity. SPINE: No scoliosis or deformity SKIN: No rashes CENTRAL NERVOUS SYSTEM: No focal deficits, tone is normal in all 4 extremities. EXTREMITIES: There is no peripheral edema. No clubbing, no cyanosis - Labs CBC & Chem 7: 07/22/19 18:57 07/22/19 18:57 Labs: Abnormal Lab Results - Last 24 Hours (Table) 07/22/19 07/22/19 07/22/19 Range/Units 18:57 18:57 18:57 WBC 20.6 H (3.8-10.6) k/uL Neutrophils # 19.1 H (1.3-7.7) k/uL Lymphocytes # 0.3 L (1.0-4.8) k/uL Sodium 135 L (137-145) mmol/L Chloride 97 L (98-107) mmol/L BUN 37 H (7-17) mg/dL Glucose 146 H (74-99) mg/dL Ferritin 832.5 H (10.0-291.0) ng/mL Total Bilirubin 2.4 H (0.2-1.3) mg/dL Lactate Dehydrogenase 768 H (313-618) U/L C-Reactive Protein 238.1 H (<10.0) mg/L Albumin 3.4 L (3.5-5.0) g/dL Assessment and Plan Plan: 1 right lower lobe pneumonia, consider hospital acquired pathogens including gram negatives as the patient was hospitalized recently in June 2019 for COPD exacerbation 2 COPD exacerbation 3 shortness of breath secondary to above 4 advanced COPD with chronic hypoxic respiratory failure admitted on oxygen at 3 L and the patient has an FEV1 of 49% of predicted at baseline and the patient has been maintained on a combination of Symbicort and Anoro in addition to albuterol and Ventolin rescue inhaler on as needed basis [id number] smoking history currently in remission 6 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
[2019-07-23 14:32] VITALS: BMI 16.6
[2019-07-23] MEDS: IPRATROPIUM-ALBUTEROL 3 ML NEB INHALATION SCH ×2 (15:46→20:46)
[2019-07-23] MEDS: FAMOTIDINE 20 MG/2 ML VIAL IV SCH (20:01)
[2019-07-24] MEDS: IPRATROPIUM-ALBUTEROL 3 ML NEB INHALATION SCH ×4 (07:41→18:50)
[2019-07-24 08:01] LABS: Basophils % (A) 0 %; Eosinophils % (A) 0 %; HCT 35.6 % (34.0-46.0); HGB 11.2 gm/dL (11.4-16.0); Lymphocytes # (A) 0.4 k/uL (1.0-4.8); Lymphocytes % (A) 2 %; MCH 29.2 pg (25.0-35.0); MCHC 31.4 g/dL (31.0-37.0); MCV 92.8 fL (80.0-100.0); Mean Platelet Volume 8.3; Monocytes # (A) 0.6 k/uL (0-1.0); Monocytes % (A) 4 %; Neutrophils # (A) 14.9 k/uL (1.3-7.7); Neutrophils % (A) 93 %; Platelet Count 215 k/uL (150-450); RBC 3.84 m/uL (3.80-5.40); RDW 13.6 % (11.5-15.5)
[2019-07-24 08:10] LABS: African American GFR (CKD) >90 (>60 ml/min/1.73 sqM); Anion Gap 5 mmol/L; Blood Urea Nitrogen 37 mg/dL (7-17); Calcium 8.9 mg/dL (8.4-10.2); Carbon Dioxide 27 mmol/L (22-30); Chloride 105 mmol/L (98-107); Glucose 132 mg/dL (74-99); Non-African American GFR(CKD) 89 (>60 ml/min/1.73 sqM); Potassium 3.8 mmol/L (3.5-5.1); Sodium 137 mmol/L (137-145)
[2019-07-24] MEDS: HEPARIN SODIUM,PORCINE 5,000 UNIT/ML 1 ML VIAL SQ SCH ×3 (08:15→23:12)
[2019-07-24] MEDS: LOSARTAN 25 MG TAB PO SCH (08:15)
[2019-07-24] MEDS: FAMOTIDINE 20 MG/2 ML VIAL IV SCH ×2 (08:15→21:32)
[2019-07-24] MEDS: methylPREDNISolone SOD SUCCI 40 MG/ML 1 ML VIAL IV SCH ×2 (08:15→21:34)
[2019-07-24] MEDS: VANCOMYCIN 750 MG in SODIUM CHLORIDE 0.9% 250 ML IVPB SCH ×2 (08:21→21:38)
[2019-07-24] MEDS: CEFEPIME 2 GM in SODIUM CHLORIDE 0.9% 100 ML IVPB SCH ×2 (11:42→22:40)
--- NOTE | 2019-07-24 13:13 | P.PN ---
Subjective Progress Note Date: 07/24/19 Principal diagnosis: Right lower lobe pneumonia, likely hospital acquired pathogen related This is a 79-year-old male patient with known history of severe oxygen-dependent COPD who presented to the emergency department last month and the patient was seen in consult by our service. The patient at that time she was having shortness of breath and she was diagnosed having COPD exacerbation and she was treated on outpatient basis with a combination of antibiotics and steroids and she was discharged home. She was having tracheal bronchitis. She was given IV antibiotics. She was given about treatments per she was given IV steroids. She did improve. She tested negative for the rao virus. At the time of discharge she was on 4 L of oxygen by nasal cannula and pulse ox is above 90% pH she typically uses 3 L of oxygen at home. At a time of discharge, she was asked to continue Anoro Ellipta in addition Symbicort maintenance in addition to to Ventolin rescue inhaler and DuoNeb nebulized treatments around the clock. The patient was also asked to take guaifenesin 600 mg every 12 hours on a when necessary basis. A CAT scan of the chest from 2019 showed moderate hyp erinflation compatible with COPD with moderate upper lobe emphysematous change and parenchymal scarring in the right upper lobe. No evidence of any lung masses or tumors. The patient came in back to the emergency department on 07/22/2019 complaining of worsening shortness of breath. She was doing her breathing treatments frequently without much help. No fever. No chills. She did have a congested cough. The chest x-ray during the current admission showed an extensive right lower lobe pneumonia compared to the previous chest x-ray this was a new finding. The patient also has underlying COPD. No evidence of any heart failure. The patient was given Zithromax and admitted to the floor. The white cell count is 20.6. Troponin is less than 0.01. ProBNP level is 317. Lactic acid level is at 1.8. Covid 19 analysis still pending for now. On today's evaluation of 07/25/2019, I'm seeing this patient for a follow-up. She still is having difficulty breathing. She has a congested cough. Unable to bring up the sputum. A repeat chest x-ray was done and showed a involving the right midlung area. There is as bases also in the right lower lobe without any significant change compared to the previous chest x-ray from yesterday. This is obviously new onset consolidation and hospital-acquired pathogens need to be expected. I added cefepime. I'm going to add vancomycin also. The white cell count of 20.6. The patient is afebrile. The patient on 4 L about 2 by nasal cannula with a pulse ox of 97%. On 07/24/2019 patient seen in follow-up on the general medical floor, she is dyspneic with conversation, and with any exertion, but no acute distress, she remains on 4 L of oxygen the pulse ox of 96%, she is afebrile, hemodynamically patient is stable. Lung sounds reveal coarse inspiratory crackles at the right base, diminished breath sounds overall, she is on combination of cefepime and vancomycin, she states. Sample has been sent, and is pending at this time, today's labs have been reviewed leukocytosis is improving, white blood cell count is 16.0, hemoglobin of 11.2,, electrolytes are within normal limits, B1 is 37 creatinine 0.57, rao virus PCR test was negative. Pro-calcitonin level was elevated at 3.55 consistent with possibility of bacterial pneumonia Objective - Vital Signs Vital signs: Vital Signs Temp 97.9 F 07/24/19 07:19 Pulse 96 07/24/19 11:42 Resp 16 07/24/19 07:19 BP 137/77 07/24/19 07:19 Pulse Ox 96 07/24/19 07:19 Intake & Output 07/23/19 07/24/19 07/24/19 18:59 06:59 18:59 Intake Total 880 350 Balance 880 350 Weight 46.72 kg Intake: IV 100 100 Cefepime 2 gm In Sodium 100 100 Chloride 0.9% 100 ml @ 200 mls/hr IVPB Q12H RUBIN Rx#:[id number] Intake, IV Titration 250 250 Amount Vancomycin 750 mg In 250 250 Sodium Chloride 0.9% 250 ml @ 125 mls/hr IVPB Q12HR RUBIN Rx#:[id number] Oral 530 Other: # Voids 2 # Bowel Movements 1 - Exam GENERAL EXAM: Alert, very pleasant, cachectic 79-year-old white female, on 5 L of oxygen with a pulse ox of 96%, comfortable in no apparent distress. HEAD: Normocephalic/atraumatic. EYES: Normal reaction of pupils, equal size. Conjunctiva pink, sclera white. NOSE: Clear with pink turbinates. THROAT: No erythema or exudates. NECK: No masses, no JVD, no thyroid enlargement, no adenopathy. CHEST: No chest wall deformity. Symmetrical expansion. LUNGS: Diminished air entry with inspiratory crackles at the right base, but no wheeze, rhonchi or dullness. CVS: Regular rate and rhythm, normal S1 and S2, no gallops, no murmurs, no rubs ABDOMEN: Soft, nontender. No hepatosplenomegaly, normal bowel sounds, no guarding or rigidity. EXTREMITIES: No clubbing, no edema, no cyanosis, 2+ pulses and upper and lower extremities. MUSCULOSKELETAL: Muscle strength and tone normal. SPINE: No scoliosis or deformity SKIN: No rashes CENTRAL NERVOUS SYSTEM: Alert and oriented -3. No focal deficits, tone is normal in all 4 extremities. PSYCHIATRIC: Alert and oriented -3. Appropriate affect. Intact judgment and insight. - Labs CBC & Chem 7: 07/24/19 07:47 07/24/19 07:47 Labs: Abnormal Lab Results - Last 24 Hours (Table) 07/22/19 07/24/19 07/24/19 Range/Units 18:57 07:47 07:47 WBC 16.0 H (3.8-10.6) k/uL Hgb 11.2 L (11.4-16.0) gm/dL Neutrophils # 14.9 H (1.3-7.7) k/uL Lymphocytes # 0.4 L (1.0-4.8) k/uL BUN 37 H (7-17) mg/dL Glucose 132 H (74-99) mg/dL Procalcitonin 3.55 H (0.02-0.09) ng/mL Microbiology - Last 24 Hours (Table) 07/22/19 20:50 Blood Culture - Preliminary Blood No Growth after 24 hours Assessment and Plan Plan: Assessment: 1 right lower lobe pneumonia, consider hospital acquired pathogens including gram negatives as the patient was hospitalized recently in June 2019 for COPD exacerbation 2 COPD exacerbation 3 shortness of breath secondary to above 4 advanced COPD with chronic hypoxic respiratory failure admitted on oxygen at 3 L and the patient has an FEV1 of 49% of predicted at baseline and the patient has been maintained on a combination of Symbicort and Anoro in addition to albuterol and Ventolin rescue inhaler on as needed basis [id number] smoking history currently in remission 6 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 Follow-up chest x-ray in the morning, continue trending pro-calcitonin I performed a history & physical examination of the patient and discussed their management with my nurse practitioner, Leni Zarco. I reviewed the nurse practitioner's note and agree with the documented findings and plan of care. Lung sounds are positive for right basilar crackles. The findings and the impression was discussed with the patient. I attest to the documentation by the nurse practitioner. Time with Patient: Less than 30
--- NOTE | 2019-07-24 13:16 | P.PN ---
Subjective this is a pleasant 79 years old female with past medical history of COPD, pneumonia.she follows up with Dr. Wolfe.patient presents with progressive dyspnea associated with productive cough with green yellow phlegm. No chest pain. No fever. She is on home oxygen 3 nuclear via nasal cannula. No abdominal pain, no nausea vomiting, no change in urine or bowel habits. patient showing saturation of oxygen at 97% on 4 L oxygen via nasal cannula, p atient is afebrile. on admission she has leukocytosis of 20.6 K, INR and results of CBC is unremarka ble. Liver enzymes not elevated, LDH is 768, C-reactive protein is 238 and ferritin is pending chest x-ray showing large masslike area of consolidation in the right mid lung zone EKG showing sinus tachycardia at 1 or [address]-T changes in the emergency room she was started on Rocephin and Zithromax, steroids and breathing treatment. Vancomycin is also added 07/24/2019 Patient still complaining of from dyspnea and coughing same as she came in. She is fully awake and oriented. No chest pain she saturating 96% on 4 L oxygen of the nasal cannula WBCs 16, rest of CBC and BMP is unremarkable. Patient is followed closely by pulmonary team. she remains on cefepime and vancomycin. Also she is on Solu-Medrol 40 mg twice daily. Review of Systems CONSTITUTIONAL: No fever, no malaise, no fatigue. HEENT: No recent visual problems or hearing problems. Denied any sore throat. CARDIOVASCULAR: No orthopnea, PND, no palpitations, no syncope. PULMONARY: no hemoptysis. GASTROINTESTINAL: No diarrhea, no nausea, no vomiting, no abdominal pain. Normoactive bowel sounds. NEUROLOGICAL: No headaches, no weakness, no numbness. HEMATOLOGICAL: Denies any bleeding or petechiae. GENITOURINARY: Denies any burning micturition, frequency, or urgency. MUSCULOSKELETAL/RHEUMATOLOGICAL: Denies any joint pain, swelling, or any muscle pain. ENDOCRINE: Denies any polyuria or polydipsia. Objective - Vital Signs Vital signs: Vital Signs Temp 97.9 F 07/24/19 07:19 Pulse 96 07/24/19 11:42 Resp 16 07/24/19 07:19 BP 137/77 07/24/19 07:19 Pulse Ox 96 07/24/19 07:19 Intake & Output 07/23/19 07/24/19 07/24/19 18:59 06:59 18:59 Intake Total 880 350 Balance 880 350 Weight 46.72 kg Intake: IV 100 100 Cefepime 2 gm In Sodium 100 100 Chloride 0.9% 100 ml @ 200 mls/hr IVPB Q12H RUBIN Rx#:[id number] Intake, IV Titration 250 250 Amount Vancomycin 750 mg In 250 250 Sodium Chloride 0.9% 250 ml @ 125 mls/hr IVPB Q12HR RUBIN Rx#:[id number] Oral 530 Other: # Voids 2 # Bowel Movements 1 - Exam GENERAL: The patient is alert and oriented x3, not in any acute distress. Well developed, well nourished. HEENT: Pupils are round and equally reacting to light. EOMI. No scleral icterus. No conjunctival pallor. Normocephalic, atraumatic. No pharyngeal erythema. No thyromegaly. CARDIOVASCULAR: S1 and S2 present. No murmurs, rubs, or gallops. -PULMONARY: Chest is clear to auscultation, decreased breath sounds on the right lung with scattered wheezing ABDOMEN: Soft, nontender, nondistended, normoactive bowel sounds. No palpable organomegaly. MUSCULOSKELETAL: No joint swelling or deformity. EXTREMITIES: No cyanosis, clubbing, or pedal edema. NEUROLOGICAL: Gross neurological examination did not reveal any focal deficits. SKIN: No rashes. No petechiae - Labs CBC & Chem 7: 07/24/19 07:47 07/24/19 07:47 Labs: Abnormal Lab Results - Last 24 Hours (Table) 07/22/19 07/24/19 07/24/19 Range/Units 18:57 07:47 07:47 WBC 16.0 H (3.8-10.6) k/uL Hgb 11.2 L (11.4-16.0) gm/dL Neutrophils # 14.9 H (1.3-7.7) k/uL Lymphocytes # 0.4 L (1.0-4.8) k/uL BUN 37 H (7-17) mg/dL Glucose 132 H (74-99) mg/dL Procalcitonin 3.55 H (0.02-0.09) ng/mL Microbiology - Last 24 Hours (Table) 07/22/19 20:50 Blood Culture - Preliminary Blood No Growth after 24 hours Assessment and Plan Assessment: masslike area of consolidation in the right mid lung zone, suspicious for right pneumonia. Cannot exclude cancer Acute COPD exacerbation hypertension Sinusitis Plan: this is a pleasant 79 years old female who presents with pneumonia and right lung mass like consolidation. COPD. Continue with antibiotic, follow-up sputum culture, continuewith steroids.pulmonary consult Labs and medication were reviewed.. Continue same treatment. Continue with symptomatic treatment. Resume home medication. Monitor lytes and vitals. DVT and GI prophylaxis. Further recommendations of the clinical course of the patient DVT prophylaxis: Subcutaneous heparin GI Prophylaxis: Pepcid PT/OT: Pending Prognosis is guarded
--- NOTE | 2019-07-25 07:03 | XR ---
EXAMINATION TYPE: XR chest 1V DATE OF EXAM: 07/25/2019 COMPARISON: 07/23/2019 HISTORY: Cough TECHNIQUE: Single frontal view of the chest is obtained. FINDINGS: Demonstrated are scattered senescent parenchymal change. Masslike area of consolidation ri ght midlung zone. Airspace disease right lower lobe. Overall no significant change appreciated. Hyper inflation compatible with COPD. Remote granulomatous disease. The heart is stable. Hilar and mediasti nal structures are within normal limits. Degenerative changes are seen of the dorsal spine. IMPRESSION: 1. Stable changes of COPD and chronic interstitial lung disease with basilar infiltrate and small eff usion. Associated interstitial pneumonitis or venous congestion in the differential diagnosis 2. Large area of mass or round pneumonia right upper lobe. Correlate clinically findings are stable
[2019-07-25] MEDS: IPRATROPIUM-ALBUTEROL 3 ML NEB INHALATION SCH ×5 (07:37→19:57)
[2019-07-25] MEDS ORDERED: VANCOMYCIN TROUGH DUE 1 EACH MISC MISCELLANE ONE (08:00)
[2019-07-25] MEDS: FAMOTIDINE 20 MG/2 ML VIAL IV SCH ×2 (08:45→20:32)
[2019-07-25] MEDS: HEPARIN SODIUM,PORCINE 5,000 UNIT/ML 1 ML VIAL SQ SCH ×2 (08:45→16:04)
[2019-07-25] MEDS: VANCOMYCIN 750 MG in SODIUM CHLORIDE 0.9% 250 ML IVPB SCH ×2 (08:46→16:04)
[2019-07-25] MEDS: methylPREDNISolone SOD SUCCI 40 MG/ML 1 ML VIAL IV SCH ×2 (08:46→20:33)
[2019-07-25] MEDS: LOSARTAN 25 MG TAB PO SCH (08:46)
[2019-07-25 08:48] LABS: Basophils % (A) 0 %; Eosinophils % (A) 0 %; HCT 38.5 % (34.0-46.0); HGB 11.8 gm/dL (11.4-16.0); Lymphocytes # (A) 0.4 k/uL (1.0-4.8); Lymphocytes % (A) 2 %; MCH 28.6 pg (25.0-35.0); MCHC 30.6 g/dL (31.0-37.0); MCV 93.5 fL (80.0-100.0); Monocytes # (A) 0.7 k/uL (0-1.0); Monocytes % (A) 4 %; Neutrophils # (A) 14.5 k/uL (1.3-7.7); Neutrophils % (A) 92 %; Platelet Count 271 k/uL (150-450); RBC 4.11 m/uL (3.80-5.40); RDW 13.7 % (11.5-15.5); WBC 15.8 k/uL (3.8-10.6)
[2019-07-25 09:03] LABS: African American GFR (CKD) >90 (>60 ml/min/1.73 sqM); Anion Gap 6 mmol/L; Blood Urea Nitrogen 43 mg/dL (7-17); Calcium 9.2 mg/dL (8.4-10.2); Carbon Dioxide 28 mmol/L (22-30); Chloride 104 mmol/L (98-107); Glucose 111 mg/dL (74-99); Non-African American GFR(CKD) 85 (>60 ml/min/1.73 sqM); Potassium 4.5 mmol/L (3.5-5.1); Sodium 138 mmol/L (137-145)
--- NOTE | 2019-07-25 10:24 | P.PN ---
Subjective this is a pleasant 79 years old female with past medical history of COPD, pneumonia.she follows up with Dr. Wolfe.patient presents with progressive dyspnea associated with productive cough with green yellow phlegm. No chest pain. No fever. She is on home oxygen 3 nuclear via nasal cannula. No abdominal pain, no nausea vomiting, no change in urine or bowel habits. patient showing saturation of oxygen at 97% on 4 L oxygen via nasal cannula, p atient is afebrile. on admission she has leukocytosis of 20.6 K, INR and results of CBC is unremarka ble. Liver enzymes not elevated, LDH is 768, C-reactive protein is 238 and ferritin is pending chest x-ray showing large masslike area of consolidation in the right mid lung zone EKG showing sinus tachycardia at 1 or [address]-T changes in the emergency room she was started on Rocephin and Zithromax, steroids and breathing treatment. Vancomycin is also added 07/24/2019 Patient still complaining of from dyspnea and coughing same as she came in. She is fully awake and oriented. No chest pain she saturating 96% on 4 L oxygen of the nasal cannula WBCs 16, rest of CBC and BMP is unremarkable. Patient is followed closely by pulmonary team. she remains on cefepime and vancomycin. Also she is on Solu-Medrol 40 mg twice daily. 07/25/2019 Patient is still significantly dyspneic and she could not finish talking to her sentences She is saturating 91-97% and 4 L oxygen of the nasal cannula. WBC 15.8 K, BMP is unremarkable. Gram stain showing few gram-positive cocci and rare gram- positive bacilli. Chest x-ray showing better orientation may be small right pleural effusion and reviewed by me. She remains on cefepime and vancomycin. Review of Systems CONSTITUTIONAL: No fever, no malaise, no fatigue. HEENT: No recent visual problems or hearing problems. Denied any sore throat. CARDIOVASCULAR: No orthopnea, PND, no palpitations, no syncope. PULMONARY: no hemoptysis. GASTROINTESTINAL: No diarrhea, no nausea, no vomiting, no abdominal pain. Normoactive bowel sounds. NEUROLOGICAL: No headaches, no weakness, no numbness. HEMATOLOGICAL: Denies any bleeding or petechiae. GENITOURINARY: Denies any burning micturition, frequency, or urgency. MUSCULOSKELETAL/RHEUMATOLOGICAL: Denies any joint pain, swelling, or any muscle pain. ENDOCRINE: Denies any polyuria or polydipsia. Active Medications Generic Name Dose Route Start Last Admin Trade Name Freq PRN Reason Stop Dose Admin Hydrocodone Bitart/Acetaminophen 1 each 07/23/19 10:08 [place] 5-325 PO Q6HR PRN Pain Albuterol/Ipratropium 3 ml 07/23/19 16:00 07/25/19 07:37 Duoneb 0.5 Mg-3 Mg/3 Ml Soln INHALATION 3 ml RT-QID RUBIN Administration Famotidine 20 mg 07/23/19 21:00 07/25/19 08:45 Pepcid IV 20 mg Q12HR RUBIN Administration Guaifenesin 600 mg 07/23/19 09:54 Mucinex PO Q12HR PRN congestion Heparin Sodium (Porcine) 5,000 unit 07/23/19 10:00 07/25/19 08:45 Heparin SQ 5,000 unit Q8HR RUBIN Administration Cefepime HCl 2 gm/ Sodium 100 mls @ 200 mls/hr 07/22/19 23:00 07/24/19 22:40 Chloride IVPB 200 mls/hr Q12H RUBIN Administration Vancomycin HCl 750 mg/ Sodium 250 mls @ 125 mls/hr 07/23/19 11:00 07/25/19 08:46 Chloride IVPB 125 mls/hr Q12HR RUBIN Administration Losartan Potassium 25 mg 07/24/19 09:00 07/25/19 08:46 Cozaar PO 25 mg DAILY RUBIN Administration Methylprednisolone Sodium Succinate 40 mg 07/23/19 10:00 07/25/19 08:46 Solu-Medrol IV 40 mg Q12HR RUBIN Administration Miscellaneous Information 1 each 07/22/19 20:30 Pneumonia Protocol Utilized PO ONCE PRN Per Protocol Objective - Vital Signs Vital signs: Vital Signs Temp 98.9 F 07/25/19 07:00 Pulse 92 07/25/19 07:34 Resp 20 07/25/19 07:00 BP 157/79 07/25/19 07:00 Pulse Ox 91 L 07/25/19 07:00 Intake & Output 07/24/19 07/25/19 07/25/19 18:59 06:59 18:59 Other: Voiding Method Bedside Commode # Voids 2 1 # Bowel Movements 1 1 - Exam GENERAL: The patient is alert and oriented x3, not in any acute distress. Well developed, well nourished. HEENT: Pupils are round and equally reacting to light. EOMI. No scleral icterus. No conjunctival pallor. Normocephalic, atraumatic. No pharyngeal erythema. No thyromegaly. CARDIOVASCULAR: S1 and S2 present. No murmurs, rubs, or gallops. -PULMONARY: Chest is clear to auscultation, decreased breath sounds on the right lung with scattered wheezing ABDOMEN: Soft, nontender, nondistended, normoactive bowel sounds. No palpable organomegaly. MUSCULOSKELETAL: No joint swelling or deformity. EXTREMITIES: No cyanosis, clubbing, or pedal edema. NEUROLOGICAL: Gross neurological examination did not reveal any focal deficits. SKIN: No rashes. No petechiae - Labs CBC & Chem 7: 07/25/19 07:27 07/25/19 07:27 Labs: Abnormal Lab Results - Last 24 Hours (Table) 07/25/19 07/25/19 Range/Units 07:27 07:27 WBC 15.8 H (3.8-10.6) k/uL MCHC 30.6 L (31.0-37.0) g/dL Neutrophils # 14.5 H (1.3-7.7) k/uL Lymphocytes # 0.4 L (1.0-4.8) k/uL BUN 43 H (7-17) mg/dL Glucose 111 H (74-99) mg/dL Microbiology - Last 24 Hours (Table) 07/24/19 07:40 Gram Stain - Preliminary Sputum 07/22/19 20:50 Blood Culture - Preliminary Blood No Growth after 48 hours Assessment and Plan Assessment: masslike area of consolidation in the right mid lung zone, suspicious for right pneumonia. Cannot exclude cancer Acute COPD exacerbation hypertension Sinusitis Plan: this is a pleasant 79 years old female who presents with pneumonia and right lung mass like consolidation. COPD. Continue with antibiotic, follow-up sputum culture, continuewith steroids.pulmonary consult Labs and medication were reviewed.. Continue same treatment. Continue with symptomatic treatment. Resume home medication. Monitor lytes and vitals. DVT and GI prophylaxis. Further recommendations of the clinical course of the patient DVT prophylaxis: Subcutaneous heparin GI Prophylaxis: Pepcid PT/OT: Pending Prognosis is guarded
--- NOTE | 2019-07-25 11:23 | CDI ---
Documentation Clarification Form Date: 07/25/2019 10:33:06 AM From: Izabela Chaparro RN CCDS Admit Date: 07/22/2019 08:29:00 PM Patient Name: Chelsea Bland Visit Number: [id number] Discharge Date: ATTENTION: The Clinical Documentation Specialists (CDI) and [facility] Coding Staff appreciate your assistance in clarifying documentation. Please respond to the clarification below the line at the bottom and electronically sign. The CDI & [facility] Coding staff will review the response and follow-up if needed. Please note: Queries are made part of the Legal Health Record. If you have any questions, please contact the author of this message via ITS. Dr. Pierce E Sheet The patient presented with the following shortness of breath that has worsened since Sunday. History/Risk Factors: 79-year-old female with Severe COPD, 3L home oxygen, chronic respiratory failure. Clinical Indicators: LABS 07/21: Wbc 20.6, Neutrophils 19.1, CRP 238.1, Procalcitonin 3.55 Sputum Preliminary Gram Stain 07/24 Few budding yeast, few gram positive cocci, rare gram positive bacilli Vitals signs on admission 07/21: 121/78, 99, 98.9, 18 88% 3L nasal cannula CXR 07/21: Extensive right lower lobe pneumonia that is a change compared to old exam. COPD and pulmonary fibrosis unchanged. ED Impression 07/21: AECOPD, Hypoxemia, Adult respiratory distress syndrome, Pneumonia, Sepsis. Treatment: Pulmonary Consult 07/21: Right lower pneumonia, consider hospital acquired pathogens. Hospitalized June 2019 for AECOPD Antibiotics: 07/21 Azithromycin IV x 1, Cefepime IV Q 12H, 07/22 Vancomycin IV Q12H In your professional opinion, please clarify if these findings signify one of the following conditions, whether the condition is POA, and cause, if known: Sepsis POA Sepsis Ruled Out Other, please specify Unable to determine SIRS Criteria (2 or more of the following may indicate SIRS): -Temperature < 96.8F (36C) or > 101.0F (38.3C) -Heart Rate > 90 bpm -Respiratory Rate > 20 breaths/min or PaCO2 < 32 mmHg -White Blood Cell Count > 12,000 or < 4,000 cells/mm3 or > 10% bands -Lactate >2.0 mmol/L (>4.0 is equivalent to septic shock) (Last Revision: June 2017) diagnosis: Sepsis, with positive SIRS criteria with leukocytosis, tachycardia and tachypnea, POA MTDD
--- NOTE | 2019-07-25 11:25 | P.PN ---
Subjective Progress Note Date: 07/25/19 Principal diagnosis: Right lower lobe pneumonia, hospital-acquired This is a 79-year-old female patient with known history of severe oxygen- dependent COPD who presented to the emergency department last month and the patient was seen in consult by our service. The patient at that time she was having shortness of breath and she was diagnosed having COPD exacerbation and she was treated on outpatient basis with a combination of antibiotics and steroids and she was discharged home. She was having tracheal bronchitis. She was given IV antibiotics. She was given about treatments per she was given IV steroids. She did improve. She tested negative for the rao virus. At the time of discharge she was on 4 L of oxygen by nasal cannula and pulse ox is above 90% pH she typically uses 3 L of oxygen at home. At a time of discharge, she was asked to continue Anoro Ellipta in addition Symbicort maintenance in addition to to Ventolin rescue inhaler and DuoNeb nebulized treatments around the clock. The patient was also asked to take guaifenesin 600 mg every 12 hours on a when necessary basis. A CAT scan of the chest from 2018 showed moderate hyperinflation compatible with COPD with moderate upper lobe emphysematous change and parenchymal scarring in the right upper lobe. No evidence of any lung masses or tumors. The patient came in back to the emergency department on 07/22/2019 complaining of worsening shortness of breath. She was doing her breathing treatments frequently without much help. No fever. No chills. She did have a congested cough. The chest x-ray during the current admission showed an extensive right lower lobe pneumonia compared to the previous chest x-ray this was a new finding. The patient also has underlying COPD. No evidence of any heart failure. The patient was given Zithromax and admitted to the floor. The white cell count is 20.6. Troponin is less than 0.01. ProBNP level is 317. Lactic acid level is at 1.8. Covid 19 analysis still pending for now. On today's evaluation of 07/25/2019, I'm seeing this patient for a follow-up. She still is having difficulty breathing. She has a congested cough. Unable to bring up the sputum. A repeat chest x-ray was done and showed a involving the right midlung area. There is as bases also in the right lower lobe without any significant change compared to the previous chest x-ray from yesterday. This is obviously new onset consolidation and hospital-acquired pathogens need to be expected. I added cefepime. I'm going to add vancomycin also. The white cell count of 20.6. The patient is afebrile. The patient on 4 L about 2 by nasal cannula with a pulse ox of 97%. On 07/24/2019 patient seen in follow-up on the general medical floor, she is dyspneic with conversation, and with any exertion, but no acute distress, she remains on 4 L of oxygen the pulse ox of 96%, she is afebrile, hemodynamically patient is stable. Lung sounds reveal coarse inspiratory crackles at the right base, diminished breath sounds overall, she is on combination of cefepime and vancomycin, she states. Sample has been sent, and is pending at this time, today's labs have been reviewed leukocytosis is improving, white blood cell count is 16.0, hemoglobin of 11.2,, electrolytes are within normal limits, B1 is 37 creatinine 0.57, rao virus PCR test was negative. Pro-calcitonin level was elevated at 3.55 consistent with possibility of bacterial pneumonia. The patient is seen today 07/25/2019 in follow-up on the regular medical floor. She is currently resting fairly comfortably in bed. Still dyspneic with minimal conversation and minimal exertion. She is maintaining O2 saturations in the 90s on 4 L/m per nasal cannula. Sputum culture pending. Blood cultures revealing no growth to date. White count 15.8. Hemoglobin 11.8. Sodium 138. Potassium 4.5. Creatinine 0.66. She is currently on vancomycin and cefepime. Remains on bronchodilators, IV Solu-Medrol, Mucinex. Objective - Vital Signs Vital signs: Vital Signs Temp 98.9 F 07/25/19 07:00 Pulse 96 07/25/19 11:10 Resp 20 07/25/19 07:00 BP 157/79 07/25/19 07:00 Pulse Ox 91 L 07/25/19 07:00 Intake & Output 07/24/19 07/25/19 07/25/19 18:59 06:59 18:59 Other: Voiding Method Bedside Commode Bedside Commode # Voids 2 1 # Bowel Movements 1 1 - Exam GENERAL EXAM: Alert, very pleasant, cachectic 79-year-old female patient, on 4 L of oxygen with a pulse ox of 91%, comfortable in no apparent distress. HEAD: Normocephalic/atraumatic. EYES: Normal reaction of pupils, equal size. Conjunctiva pink, sclera white. NOSE: Clear with pink turbinates. THROAT: No erythema or exudates. NECK: No masses, no JVD, no thyroid enlargement, no adenopathy. CHEST: No chest wall deformity. Symmetrical expansion. LUNGS: Diminished air entry with inspiratory crackles at the right base, but no wheeze, rhonchi or dullness. CVS: Regular rate and rhythm, normal S1 and S2, no gallops, no murmurs, no rubs ABDOMEN: Soft, nontender. No hepatosplenomegaly, normal bowel sounds, no guarding or rigidity. EXTREMITIES: No clubbing, no edema, no cyanosis, 2+ pulses and upper and lower extremities. MUSCULOSKELETAL: Muscle strength and tone normal. SPINE: No scoliosis or deformity SKIN: No rashes CENTRAL NERVOUS SYSTEM: No focal deficits, tone is normal in all 4 extremities. PSYCHIATRIC: Alert and oriented -3. Appropriate affect. Intact judgment and insight. - Labs CBC & Chem 7: 07/25/19 07:27 07/25/19 07:27 Labs: Abnormal Lab Results - Last 24 Hours (Table) 07/25/19 07/25/19 Range/Units 07:27 07:27 WBC 15.8 H (3.8-10.6) k/uL MCHC 30.6 L (31.0-37.0) g/dL Neutrophils # 14.5 H (1.3-7.7) k/uL Lymphocytes # 0.4 L (1.0-4.8) k/uL BUN 43 H (7-17) mg/dL Glucose 111 H (74-99) mg/dL Microbiology - Last 24 Hours (Table) 07/24/19 07:40 Gram Stain - Preliminary Sputum 07/22/19 20:50 Blood Culture - Preliminary Blood No Growth after 48 hours Assessment and Plan Assessment: 1 right lower lobe pneumonia, consider hospital acquired pathogens including gram negatives as the patient was hospitalized recently in June 2019 for COPD exacerbation, sputum culture pending 2 COPD exacerbation 3 shortness of breath secondary to above 4 advanced COPD with chronic hypoxic respiratory failure admitted on oxygen at 3 L and the patient has an FEV1 of 49% of predicted at baseline and the patient has been maintained on a combination of Symbicort and Anoro in addition to albuterol and Ventolin rescue inhaler on as needed basis 5 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 Granados Chest x-ray and labs reviewed Continue vancomycin and cefepime Continue bronchodilators and IV Solu-Medrol Titrate down the FiO2 as tolerated Increase her activity as tolerated We'll continue to follow I, the cosigning physician, performed a history & physical examination of the patient. Lungs sounds with inspiratory crackles of the right lung, diminished. Maintaining good O2 saturations in the 90s on 4 L/m per nasal cannula. I discussed the assessment and plan of care with my nurse practitioner, Darlene Underwood. I attest to the above note as dictated by her.
--- NOTE | 2019-07-25 11:56 | CDI ---
Documentation Clarification Form Date: 07/25/2019 11:25:59 AM From: Izabela Chaparro RN CCDS Admit Date: 07/22/2019 08:29:00 PM Patient Name: Chelsea Bland Visit Number: [id number] Discharge Date: ATTENTION: The Clinical Documentation Specialists (CDI) and [facility] Coding Staff appreciate your assistance in clarifying documentation. Please respond to the clarification below the line at the bottom and electronically sign. The CDI & [facility] Coding staff will review the response and follow-up if needed. Please note: Queries are made part of the Legal Health Record. If you have any questions, please contact the author of this message via ITS. Dr. Pierce E Tyrese Severe anorexia /cachexia syndrome related to advanced COPD is documented in Pulmonary consult 07/21 The patient History/Risk Factors: 79-year-old female presented with the following shortness of breath that has worsened since Sunday. Med History of Severe COPD, 3L home oxygen and chronic respiratory failure Clinical Indicators: LABS 07/21: Wbc 20.6, Neutrophils 19.1, CRP 238.1, Procalcitonin 3.55, Albumin 3.4, Protein 6.3 Current BMI: 16.6kg/m Treatment: Dietary Consult: Underweight due to increased energy needs, decreased oral intake. Evidenced by BMI 16.6kg/m2, Hgt 5.5. Nutrition Goals weight gain meeting 75% of nutritional needs. General / healthful diet. Enlive for additional kcal and protein. Regular Diet Oral Supplement 07/22: Ensure Enlive TID WM In your professional opinion, can you please clarify if these findings signify one of the following conditions? Moderate Protein-Calorie Malnutrition with BMI of (specify) Severe Protein-Calorie Malnutrition with BMI of (specify) Other condition, please specify Unable to determine (Last Revision: September 2018) Moderate Protein-Calorie Malnutrition with BMI of 16.6 MTDD
[2019-07-25] MEDS: CEFEPIME 2 GM in SODIUM CHLORIDE 0.9% 100 ML IVPB SCH ×2 (12:13→23:26)
[2019-07-26] MEDS: VANCOMYCIN 750 MG in SODIUM CHLORIDE 0.9% 250 ML IVPB SCH ×3 (00:50→16:28)
[2019-07-26] MEDS: HEPARIN SODIUM,PORCINE 5,000 UNIT/ML 1 ML VIAL SQ SCH ×3 (00:50→16:28)
[2019-07-26] MEDS: IPRATROPIUM-ALBUTEROL 3 ML NEB INHALATION SCH ×4 (07:49→19:37)
[2019-07-26 08:14] LABS: African American GFR (CKD) >90 (>60 ml/min/1.73 sqM); Anion Gap 4 mmol/L; Blood Urea Nitrogen 40 mg/dL (7-17); Calcium 9.3 mg/dL (8.4-10.2); Carbon Dioxide 27 mmol/L (22-30); Chloride 108 mmol/L (98-107); Glucose 127 mg/dL (74-99); Non-African American GFR(CKD) 87 (>60 ml/min/1.73 sqM); Potassium 4.7 mmol/L (3.5-5.1); Sodium 139 mmol/L (137-145)
[2019-07-26] MEDS: methylPREDNISolone SOD SUCCI 40 MG/ML 1 ML VIAL IV SCH ×2 (08:24→22:22)
[2019-07-26] MEDS: FAMOTIDINE 20 MG/2 ML VIAL IV SCH (08:24)
[2019-07-26] MEDS: LOSARTAN 25 MG TAB PO SCH (08:24)
[2019-07-26 08:31] LABS: HCT 36.9 % (34.0-46.0); HGB 11.9 gm/dL (11.4-16.0); MCH 29.8 pg (25.0-35.0); MCHC 32.2 g/dL (31.0-37.0); MCV 92.6 fL (80.0-100.0); Mean Platelet Volume 8.5; Platelet Count 246 k/uL (150-450); RBC 3.99 m/uL (3.80-5.40); RDW 13.8 % (11.5-15.5); WBC 15.8 k/uL (3.8-10.6)
[2019-07-26 09:44] LABS: Band Neutrophils % 3 %; Lymphocytes # (M) 0.79 k/uL (1.0-4.8); Metamyelocytes # (M) 0.63 k/uL (0); Metamyelocytes % 4 %; Monocytes # (M) 0.79 k/uL (0-1.0); Myelocytes # (M) 0.63 k/uL (0); Myelocytes % 4 %; Neutrophils % (M) 80 %; Nucleated Red Blood Cells 0 /100 WBC (0-0); Total Cells Counted 200
--- NOTE | 2019-07-26 10:42 | P.PN ---
Subjective Progress Note Date: 07/26/19 Principal diagnosis: Right lower lobe pneumonia, hospital-acquired This is a 79-year-old female patient with known history of severe oxygen- dependent COPD who presented to the emergency department last month and the patient was seen in consult by our service. The patient at that time she was having shortness of breath and she was diagnosed having COPD exacerbation and she was treated on outpatient basis with a combination of antibiotics and steroids and she was discharged home. She was having tracheal bronchitis. She was given IV antibiotics. She was given about treatments per she was given IV steroids. She did improve. She tested negative for the rao virus. At the time of discharge she was on 4 L of oxygen by nasal cannula and pulse ox is above 90% pH she typically uses 3 L of oxygen at home. At a time of discharge, she was asked to continue Anoro Ellipta in addition Symbicort maintenance in addition to to Ventolin rescue inhaler and DuoNeb nebulized treatments around the clock. The patient was also asked to take guaifenesin 600 mg every 12 hours on a when necessary basis. A CAT scan of the chest from 2018 showed moderate hyperinflation compatible with COPD with moderate upper lobe emphysematous change and parenchymal scarring in the right upper lobe. No evidence of any lung masses or tumors. The patient came in back to the emergency department on 07/22/2019 complaining of worsening shortness of breath. She was doing her breathing treatments frequently without much help. No fever. No chills. She did have a congested cough. The chest x-ray during the current admission showed an extensive right lower lobe pneumonia compared to the previous chest x-ray this was a new finding. The patient also has underlying COPD. No evidence of any heart failure. The patient was given Zithromax and admitted to the floor. The white cell count is 20.6. Troponin is less than 0.01. ProBNP level is 317. Lactic acid level is at 1.8. Covid 19 analysis still pending for now. On today's evaluation of 07/25/2019, I'm seeing this patient for a follow-up. She still is having difficulty breathing. She has a congested cough. Unable to bring up the sputum. A repeat chest x-ray was done and showed a involving the right midlung area. There is as bases also in the right lower lobe without any significant change compared to the previous chest x-ray from yesterday. This is obviously new onset consolidation and hospital-acquired pathogens need to be expected. I added cefepime. I'm going to add vancomycin also. The white cell count of 20.6. The patient is afebrile. The patient on 4 L about 2 by nasal cannula with a pulse ox of 97%. On 07/24/2019 patient seen in follow-up on the general medical floor, she is dyspneic with conversation, and with any exertion, but no acute distress, she remains on 4 L of oxygen the pulse ox of 96%, she is afebrile, hemodynamically patient is stable. Lung sounds reveal coarse inspiratory crackles at the right base, diminished breath sounds overall, she is on combination of cefepime and vancomycin, she states. Sample has been sent, and is pending at this time, today's labs have been reviewed leukocytosis is improving, white blood cell count is 16.0, hemoglobin of 11.2,, electrolytes are within normal limits, B1 is 37 creatinine 0.57, rao virus PCR test was negative. Pro-calcitonin level was elevated at 3.55 consistent with possibility of bacterial pneumonia. The patient is seen today 07/25/2019 in follow-up on the regular medical floor. She is currently resting fairly comfortably in bed. Still dyspneic with minimal conversation and minimal exertion. She is maintaining O2 saturations in the 90s on 4 L/m per nasal cannula. Sputum culture pending. Blood cultures revealing no growth to date. White count 15.8. Hemoglobin 11.8. Sodium 138. Potassium 4.5. Creatinine 0.66. She is currently on vancomycin and cefepime. Remains on bronchodilators, IV Solu-Medrol, Mucinex. The patient is seen today 07/26/2019 in follow-up on the regular medical floor. She is awake and alert in no acute distress. She remains quite dyspneic on minimal conversation and minimal exertion. She is still producing thick greenish yellow sputum. Sputum culture positive for MRSA and Cinthia blood culture shows no growth. White count 15.8. Hemoglobin 11.9. Sodium 139. Potassium 4.7. Creatinine 0.61. She is currently on vancomycin and cefepime along with IV Solu-Medrol, bronchodilators and Mucinex. Objective - Vital Signs Vital signs: Vital Signs Temp 98.0 F 07/26/19 07:00 Pulse 68 07/26/19 07:59 Resp 17 07/26/19 07:00 BP 149/88 07/26/19 07:00 Pulse Ox 98 07/26/19 07:00 Intake & Output 07/25/19 07/26/19 07/26/19 18:59 06:59 18:59 Intake Total 250 50 Balance 250 50 Weight 46.72 kg Intake: Oral 250 50 Other: Voiding Method Bedside Commode Bedside Commode # Voids 1 - Exam GENERAL EXAM: Alert, very pleasant, cachectic 79-year-old female patient, on 4 L of oxygen with a pulse ox of 98%, comfortable in no apparent distress. HEAD: Normocephalic/atraumatic. EYES: Normal reaction of pupils, equal size. Conjunctiva pink, sclera white. NOSE: Clear with pink turbinates. THROAT: No erythema or exudates. NECK: No masses, no JVD, no thyroid enlargement, no adenopathy. CHEST: No chest wall deformity. Symmetrical expansion. LUNGS: Diminished air entry with inspiratory crackles at the right base, but no wheeze, rhonchi or dullness. CVS: Regular rate and rhythm, normal S1 and S2, no gallops, no murmurs, no rubs ABDOMEN: Soft, nontender. No hepatosplenomegaly, normal bowel sounds, no guarding or rigidity. EXTREMITIES: No clubbing, no edema, no cyanosis, 2+ pulses and upper and lower extremities. MUSCULOSKELETAL: Muscle strength and tone normal. SPINE: No scoliosis or deformity SKIN: No rashes CENTRAL NERVOUS SYSTEM: No focal deficits, tone is normal in all 4 extremities. PSYCHIATRIC: Alert and oriented -3. Appropriate affect. Intact judgment and insight. - Labs CBC & Chem 7: 07/26/19 07:42 07/26/19 07:42 Labs: Abnormal Lab Results - Last 24 Hours (Table) 07/25/19 07/26/19 07/26/19 Range/Units 07:27 07:42 07:42 WBC 15.8 H (3.8-10.6) k/uL Neutrophils # (Manual) 13.10 H (1.3-7.7) k/uL Lymphocytes # (Manual) 0.79 L (1.0-4.8) k/uL Metamyelocytes # (Man) 0.63 H (0) k/uL Myelocytes # (Manual) 0.63 H (0) k/uL Chloride 108 H (98-107) mmol/L BUN 40 H (7-17) mg/dL Glucose 127 H (74-99) mg/dL Procalcitonin 0.88 H (0.02-0.09) ng/mL Microbiology - Last 24 Hours (Table) 07/24/19 07:40 Gram Stain - Final Sputum Sputum Culture - Final Methicillin resist S. aureus Cinthia albicans 07/22/19 20:50 Blood Culture - Preliminary Blood No Growth after 72 hours Assessment and Plan Assessment: 1 right lower lobe pneumonia, secondary to MRSA and Cinthia and the patient was hospitalized recently in June 2019 for COPD exacerbation 2 COPD exacerbation 3 shortness of breath secondary to above 4 advanced COPD with chronic hypoxic respiratory failure admitted on oxygen at 3 L and the patient has an FEV1 of 49% of predicted at baseline and the patient has been maintained on a combination of Symbicort and Anoro in addition to albuterol and Ventolin rescue inhaler on as needed basis 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 Granados Sputum culture positive for MRSA Continue vancomycin and cefepime Continue bronchodilators, Mucinex and IV Solu-Medrol Titrate down the FiO2 as tolerated Increase her activity as tolerated We'll continue to follow I, the cosigning physician, performed a history & physical examination of the patient. Lungs sounds with inspiratory crackles of the right lung, diminished. Maintaining good O2 saturations in the 90s on 4 L/m per nasal cannula. I discussed the assessment and plan of care with my nurse practitioner, Darlene Underwood. I attest to the above note as dictated by her.
[2019-07-26] MEDS: CEFEPIME 2 GM in SODIUM CHLORIDE 0.9% 100 ML IVPB SCH ×2 (11:40→22:22)
[2019-07-26] MEDS ORDERED: guaiFENesin-DM 100-10MG/5ML 10 ML CUP PO PRN (11:42)
--- NOTE | 2019-07-26 12:07 | P.PN ---
Subjective this is a pleasant 79 years old female with past medical history of COPD, pneumonia.she follows up with Dr. Wolfe.patient presents with progressive dyspnea associated with productive cough with green yellow phlegm. No chest pain. No fever. She is on home oxygen 3 nuclear via nasal cannula. No abdominal pain, no nausea vomiting, no change in urine or bowel habits. patient showing saturation of oxygen at 97% on 4 L oxygen via nasal cannula, p atient is afebrile. on admission she has leukocytosis of 20.6 K, INR and results of CBC is unremarka ble. Liver enzymes not elevated, LDH is 768, C-reactive protein is 238 and ferritin is pending chest x-ray showing large masslike area of consolidation in the right mid lung zone EKG showing sinus tachycardia at 1 or [address]-T changes in the emergency room she was started on Rocephin and Zithromax, steroids and breathing treatment. Vancomycin is also added 07/24/2019 Patient still complaining of from dyspnea and coughing same as she came in. She is fully awake and oriented. No chest pain she saturating 96% on 4 L oxygen of the nasal cannula WBCs 16, rest of CBC and BMP is unremarkable. Patient is followed closely by pulmonary team. she remains on cefepime and vancomycin. Also she is on Solu-Medrol 40 mg twice daily. 07/25/2019 Patient is still significantly dyspneic and she could not finish talking to her sentences She is saturating 91-97% and 4 L oxygen of the nasal cannula. WBC 15.8 K, BMP is unremarkable. Gram stain showing few gram-positive cocci and rare gram- positive bacilli. Chest x-ray showing better orientation may be small right pleural effusion and reviewed by me. She remains on cefepime and vancomycin. 07/26/2019 Patient remains dyspneic and short of breath. Especially when she tries to talk. She remains on oxygen saturation of 4 L/m via nasal cannula and saturating at 90, rest of vitals are stable. WBC 15.8 K. BMP and glucose is unremarkable. Sputum culture is growing MRSA and cinthia. Patient is already on vancomycin and cefepime, we'll add Diflucan for a few days Objective - Vital Signs Vital signs: Vital Signs Temp 98.0 F 07/26/19 07:00 Pulse 72 05/16/20 11:44 Resp 17 07/26/19 07:00 BP 149/88 07/26/19 07:00 Pulse Ox 98 07/26/19 07:00 Intake & Output 07/25/19 07/26/19 07/26/19 18:59 06:59 18:59 Intake Total 250 50 Balance 250 50 Weight 46.72 kg Intake: Oral 250 50 Other: Voiding Method Bedside Commode Bedside Commode Bedside Commode # Voids 1 - Exam GENERAL: The patient is alert and oriented x3, not in any acute distress. Well developed, well nourished. HEENT: Pupils are round and equally reacting to light. EOMI. No scleral icterus. No conjunctival pallor. Normocephalic, atraumatic. No pharyngeal erythema. No thyromegaly. CARDIOVASCULAR: S1 and S2 present. No murmurs, rubs, or gallops. -PULMONARY: Chest is clear to auscultation, decreased breath sounds on the right lung with scattered wheezing ABDOMEN: Soft, nontender, nondistended, normoactive bowel sounds. No palpable organomegaly. MUSCULOSKELETAL: No joint swelling or deformity. EXTREMITIES: No cyanosis, clubbing, or pedal edema. NEUROLOGICAL: Gross neurological examination did not reveal any focal deficits. SKIN: No rashes. No petechiae - Labs CBC & Chem 7: 07/26/19 07:42 07/26/19 07:42 Labs: Abnormal Lab Results - Last 24 Hours (Table) 07/25/19 07/26/19 07/26/19 Range/Units 07:27 07:42 07:42 WBC 15.8 H (3.8-10.6) k/uL Neutrophils # (Manual) 13.10 H (1.3-7.7) k/uL Lymphocytes # (Manual) 0.79 L (1.0-4.8) k/uL Metamyelocytes # (Man) 0.63 H (0) k/uL Myelocytes # (Manual) 0.63 H (0) k/uL Chloride 108 H (98-107) mmol/L BUN 40 H (7-17) mg/dL Glucose 127 H (74-99) mg/dL Procalcitonin 0.88 H (0.02-0.09) ng/mL Microbiology - Last 24 Hours (Table) 07/24/19 07:40 Gram Stain - Final Sputum Sputum Culture - Final Methicillin resist S. aureus Cinthia albicans 07/22/19 20:50 Blood Culture - Preliminary Blood No Growth after 72 hours Assessment and Plan Assessment: masslike area of consolidation in the right mid lung zone, suspicious for right pneumonia. Cannot exclude cancer Acute COPD exacerbation hypertension Sinusitis Plan: this is a pleasant 79 years old female who presents with pneumonia and right lung mass like consolidation. COPD. Continue with antibiotic, follow-up sputum culture, continuewith steroids.pulmonary consult Labs and medication were reviewed.. Continue same treatment. Continue with symptomatic treatment. Resume home medication. Monitor lytes and vitals. DVT and GI prophylaxis. Further recommendations of the clinical course of the patient DVT prophylaxis: Subcutaneous heparin GI Prophylaxis: Pepcid PT/OT: Pending Prognosis is guarded
[2019-07-26] MEDS: guaiFENesin-DM 100-10MG/5ML 10 ML CUP PO SCH ×2 (16:27→22:23)
[2019-07-26] MEDS: FLUCONAZOLE 100 MG TAB PO SCH (16:27)
[2019-07-26] MEDS: FAMOTIDINE 20 MG TAB PO SCH (22:28)
[2019-07-27] MEDS: VANCOMYCIN 750 MG in SODIUM CHLORIDE 0.9% 250 ML IVPB SCH ×3 (00:44→17:21)
[2019-07-27] MEDS: HEPARIN SODIUM,PORCINE 5,000 UNIT/ML 1 ML VIAL SQ SCH ×3 (00:44→17:21)
[2019-07-27] MEDS: guaiFENesin-DM 100-10MG/5ML 10 ML CUP PO SCH ×4 (05:00→20:39)
[2019-07-27] MEDS ORDERED: VANCOMYCIN TROUGH DUE 1 EACH MISC MISCELLANE ONE (07:00)
[2019-07-27 07:30] LABS: Glucose,Whole Blood 124 mg/dL (75-99)
[2019-07-27] MEDS: IPRATROPIUM-ALBUTEROL 3 ML NEB INHALATION SCH ×4 (08:06→20:20)
[2019-07-27] MEDS: LOSARTAN 25 MG TAB PO SCH (08:09)
[2019-07-27] MEDS: methylPREDNISolone SOD SUCCI 40 MG/ML 1 ML VIAL IV SCH ×2 (08:09→20:39)
[2019-07-27] MEDS: FAMOTIDINE 20 MG TAB PO SCH ×2 (08:09→20:39)
[2019-07-27] MEDS: FLUCONAZOLE 100 MG TAB PO SCH (08:09)
--- NOTE | 2019-07-27 11:06 | P.PN ---
Subjective Progress Note Date: 07/27/19 Principal diagnosis: Right lower lobe pneumonia, hospital-acquired This is a 79-year-old female patient with known history of severe oxygen- dependent COPD who presented to the emergency department last month and the patient was seen in consult by our service. The patient at that time she was having shortness of breath and she was diagnosed having COPD exacerbation and she was treated on outpatient basis with a combination of antibiotics and steroids and she was discharged home. She was having tracheal bronchitis. She was given IV antibiotics. She was given about treatments per she was given IV steroids. She did improve. She tested negative for the rao virus. At the time of discharge she was on 4 L of oxygen by nasal cannula and pulse ox is above 90% pH she typically uses 3 L of oxygen at home. At a time of discharge, she was asked to continue Anoro Ellipta in addition Symbicort maintenance in addition to to Ventolin rescue inhaler and DuoNeb nebulized treatments around the clock. The patient was also asked to take guaifenesin 600 mg every 12 hours on a when necessary basis. A CAT scan of the chest from 2018 showed moderate hyperinflation compatible with COPD with moderate upper lobe emphysematous change and parenchymal scarring in the right upper lobe. No evidence of any lung masses or tumors. The patient came in back to the emergency department on 07/22/2019 complaining of worsening shortness of breath. She was doing her breathing treatments frequently without much help. No fever. No chills. She did have a congested cough. The chest x-ray during the current admission showed an extensive right lower lobe pneumonia compared to the previous chest x-ray this was a new finding. The patient also has underlying COPD. No evidence of any heart failure. The patient was given Zithromax and admitted to the floor. The white cell count is 20.6. Troponin is less than 0.01. ProBNP level is 317. Lactic acid level is at 1.8. Covid 19 analysis still pending for now. On today's evaluation of 07/25/2019, I'm seeing this patient for a follow-up. She still is having difficulty breathing. She has a congested cough. Unable to bring up the sputum. A repeat chest x-ray was done and showed a involving the right midlung area. There is as bases also in the right lower lobe without any significant change compared to the previous chest x-ray from yesterday. This is obviously new onset consolidation and hospital-acquired pathogens need to be expected. I added cefepime. I'm going to add vancomycin also. The white cell count of 20.6. The patient is afebrile. The patient on 4 L about 2 by nasal cannula with a pulse ox of 97%. On 07/24/2019 patient seen in follow-up on the general medical floor, she is dyspneic with conversation, and with any exertion, but no acute distress, she remains on 4 L of oxygen the pulse ox of 96%, she is afebrile, hemodynamically patient is stable. Lung sounds reveal coarse inspiratory crackles at the right base, diminished breath sounds overall, she is on combination of cefepime and vancomycin, she states. Sample has been sent, and is pending at this time, today's labs have been reviewed leukocytosis is improving, white blood cell count is 16.0, hemoglobin of 11.2,, electrolytes are within normal limits, B1 is 37 creatinine 0.57, rao virus PCR test was negative. Pro-calcitonin level was elevated at 3.55 consistent with possibility of bacterial pneumonia. The patient is seen today 07/25/2019 in follow-up on the regular medical floor. She is currently resting fairly comfortably in bed. Still dyspneic with minimal conversation and minimal exertion. She is maintaining O2 saturations in the 90s on 4 L/m per nasal cannula. Sputum culture pending. Blood cultures revealing no growth to date. White count 15.8. Hemoglobin 11.8. Sodium 138. Potassium 4.5. Creatinine 0.66. She is currently on vancomycin and cefepime. Remains on bronchodilators, IV Solu-Medrol, Mucinex. The patient is seen today 07/26/2019 in follow-up on the regular medical floor. She is awake and alert in no acute distress. She remains quite dyspneic on minimal conversation and minimal exertion. She is still producing thick greenish yellow sputum. Sputum culture positive for MRSA and Cinthia blood culture shows no growth. White count 15.8. Hemoglobin 11.9. Sodium 139. Potassium 4.7. Creatinine 0.61. She is currently on vancomycin and cefepime along with IV Solu-Medrol, bronchodilators and Mucinex. The patient is seen today 07/27/2019 in follow-up on the regular medical floor. She is currently resting comfortably in bed. A bit less short of breath today compared to yesterday. Still with a loose productive cough. No fever chills. She is maintaining O2 saturations in the 90s on 4 L/m per nasal cannula. She's been afebrile. Sputum is causative for MRSA. Continued on vancomycin. Trough 24.0. Remains on bronchodilators and IV Solu-Medrol. On oral Diflucan. Objective - Vital Signs Vital signs: Vital Signs Temp 97.7 F 07/27/19 07:00 Pulse 76 07/27/19 08:17 Resp 19 07/27/19 07:00 BP 156/90 07/27/19 07:00 Pulse Ox 91 L 07/27/19 07:00 Intake & Output 07/26/19 07/27/19 07/27/19 18:59 06:59 18:59 Intake Total 50 20 Balance 50 20 Intake: Oral 50 20 Other: Voiding Method Bedside Commode Bedside Commode # Voids 2 # Bowel Movements 2 - Exam GENERAL EXAM: Alert, very pleasant, cachectic 79-year-old female patient, on 4 L of oxygen with a pulse ox of 91%, comfortable in no apparent distress. HEAD: Normocephalic/atraumatic. EYES: Normal reaction of pupils, equal size. Conjunctiva pink, sclera white. NOSE: Clear with pink turbinates. THROAT: No erythema or exudates. NECK: No masses, no JVD, no thyroid enlargement, no adenopathy. CHEST: No chest wall deformity. Symmetrical expansion. LUNGS: Diminished air entry with inspiratory crackles at the right base, but no wheeze, rhonchi or dullness. CVS: Regular rate and rhythm, normal S1 and S2, no gallops, no murmurs, no rubs ABDOMEN: Soft, nontender. No hepatosplenomegaly, normal bowel sounds, no guarding or rigidity. EXTREMITIES: No clubbing, no edema, no cyanosis, 2+ pulses and upper and lower extremities. MUSCULOSKELETAL: Muscle strength and tone normal. SPINE: No scoliosis or deformity SKIN: No rashes CENTRAL NERVOUS SYSTEM: No focal deficits, tone is normal in all 4 extremities. PSYCHIATRIC: Alert and oriented -3. Appropriate affect. Intact judgment and insight. - Labs CBC & Chem 7: 07/26/19 07:42 07/26/19 07:42 Labs: Abnormal Lab Results - Last 24 Hours (Table) 07/26/19 07/27/19 Range/Units 07:42 07:28 POC Glucose (mg/dL) 124 H (75-99) mg/dL Procalcitonin 0.49 H (0.02-0.09) ng/mL Microbiology - Last 24 Hours (Table) 07/22/19 20:50 Blood Culture - Preliminary Blood No Growth after 96 hours 07/24/19 07:40 Gram Stain - Final Sputum Sputum Culture - Final Methicillin resist S. aureus Cinthia albicans Assessment and Plan Assessment: 1 right lower lobe pneumonia, secondary to MRSA and Cinthia and the patient was hospitalized recently in June 2019 for COPD exacerbation 2 acute COPD exacerbation secondary to above 3 shortness of breath secondary to above 4 advanced COPD with chronic hypoxic respiratory failure admitted on oxygen at 3 L and the patient has an FEV1 of 49% of predicted at baseline and the patient has been maintained on a combination of Symbicort and Anoro in addition to albuterol and Ventolin rescue inhaler on as needed basis 5 [id number] smoking history currently in remission 6 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 Granados Improved today from the pulmonary standpoint Continue vancomycin and cefepime Remains on Diflucan Continue bronchodilators, Mucinex and IV Solu-Medrol Titrate down the FiO2 as tolerated Increase her activity as tolerated We'll continue to follow I, the cosigning physician, performed a history & physical examination of the patient. Lungs sounds with inspiratory crackles of the right lung, diminished. Maintaining good O2 saturations in the 90s on 4 L/m per nasal cannula. I discussed the assessment and plan of care with my nurse practitioner, Darlene Underwood. I attest to the above note as dictated by her.
--- NOTE | 2019-07-27 11:19 | P.PN ---
Subjective this is a pleasant 79 years old female with past medical history of COPD, pneumonia.she follows up with Dr. Wolfe.patient presents with progressive dyspnea associated with productive cough with green yellow phlegm. No chest pain. No fever. She is on home oxygen 3 nuclear via nasal cannula. No abdominal pain, no nausea vomiting, no change in urine or bowel habits. patient showing saturation of oxygen at 97% on 4 L oxygen via nasal cannula, patient is afebrile. on admission she has leukocytosis of 20.6 K, INR and results of CBC is unremark able. Liver enzymes not elevated, LDH is 768, C-reactive protein is 238 and ferritin is pending chest x-ray showing large masslike area of consolidation in the right mid lung zone EKG showing sinus tachycardia at 1 or [address]-T changes in the emergency room she was started on Rocephin and Zithromax, steroids and breathing treatment. Vancomycin is also added 07/24/2019 Patient still complaining of from dyspnea and coughing same as she came in. She is fully awake and oriented. No chest pain she saturating 96% on 4 L oxygen of the nasal cannula WBCs 16, rest of CBC and BMP is unremarkable. Patient is followed closely by pulmonary team. she remains on cefepime and vancomycin. Also she is on Solu-Medrol 40 mg twice daily. 07/25/2019 Patient is still significantly dyspneic and she could not finish talking to her sentences She is saturating 91-97% and 4 L oxygen of the nasal cannula. WBC 15.8 K, BMP is unremarkable. Gram stain showing few gram-positive cocci and rare gram- positive bacilli. Chest x-ray showing better orientation may be small right pleural effusion and reviewed by me. She remains on cefepime and vancomycin. 07/26/2019 Patient remains dyspneic and short of breath. Especially when she tries to talk. She remains on oxygen saturation of 4 L/m via nasal cannula and saturating at 90, rest of vitals are stable. WBC 15.8 K. BMP and glucose is un remarkable. Sputum culture is growing MRSA and cinthia. Patient is already on vancomycin and cefepime, we'll add Diflucan for a few days 07/27/2019 patient is awake and alert, she is improving slowly, she still dyspneic with coughing however she said that she is breathing more easily. She saturating 91% on 4 L oxygen. However she reports loose stool today, check for C. diff. No Abdominal pain or nausea vomiting. She is still on vancomycin for MRSA by pulmonary team who following the patient closely Objective - Vital Signs Vital signs: Vital Signs Temp 97.7 F 07/27/19 07:00 Pulse 76 07/27/19 08:17 Resp 19 07/27/19 07:00 BP 156/90 07/27/19 07:00 Pulse Ox 91 L 07/27/19 07:00 Intake & Output 07/26/19 07/27/19 07/27/19 18:59 06:59 18:59 Intake Total 50 20 Balance 50 20 Intake: Oral 50 20 Other: Voiding Method Bedside Commode Bedside Commode # Voids 2 # Bowel Movements 2 - Exam GENERAL: The patient is alert and oriented x3, not in any acute distress. Well developed, well nourished. HEENT: Pupils are round and equally reacting to light. EOMI. No scleral icterus. No conjunctival pallor. Normocephalic, atraumatic. No pharyngeal erythema. No thyromegaly. CARDIOVASCULAR: S1 and S2 present. No murmurs, rubs, or gallops. -PULMONARY: Chest is clear to auscultation, decreased breath sounds on the right lung with scattered wheezing ABDOMEN: Soft, nontender, nondistended, normoactive bowel sounds. No palpable organomegaly. MUSCULOSKELETAL: No joint swelling or deformity. EXTREMITIES: No cyanosis, clubbing, or pedal edema. NEUROLOGICAL: Gross neurological examination did not reveal any focal deficits. SKIN: No rashes. No petechiae - Labs CBC & Chem 7: 07/26/19 07:42 07/26/19 07:42 Labs: Abnormal Lab Results - Last 24 Hours (Table) 07/26/19 07/27/19 Range/Units 07:42 07:28 POC Glucose (mg/dL) 124 H (75-99) mg/dL Procalcitonin 0.49 H (0.02-0.09) ng/mL Microbiology - Last 24 Hours (Table) 07/22/19 20:50 Blood Culture - Preliminary Blood No Growth after 96 hours 07/24/19 07:40 Gram Stain - Final Sputum Sputum Culture - Final Methicillin resist S. aureus Cinthia albicans Assessment and Plan Assessment: masslike area of consolidation in the right mid lung zone, suspicious for right pneumonia. Cannot exclude cancer Acute COPD exacerbation hypertension Sinusitis Plan: this is a pleasant 79 years old female who presents with pneumonia and right lung mass like consolidation. COPD. Continue with antibiotic, follow-up sputum culture, continuewith steroids.pulmonary consult Labs and medication were reviewed.. Continue same treatment. Continue with symptomatic treatment. Resume home medication. Monitor lytes and vitals. DVT and GI prophylaxis. Further recommendations of the clinical course of the patient DVT prophylaxis: Subcutaneous heparin GI Prophylaxis: Pepcid PT/OT: Pending Prognosis is guarded
[2019-07-27] MEDS: CEFEPIME 2 GM in SODIUM CHLORIDE 0.9% 100 ML IVPB SCH (12:13)
[2019-07-27 12:19] LABS: Glucose,Whole Blood 118 mg/dL (75-99)
--- NOTE | 2019-07-27 12:30 | XR ---
EXAMINATION TYPE: XR chest 1V DATE OF EXAM: 07/27/2019 HISTORY: FU pneumonia. REFERENCE: Previous study dated 07/25/2019. FINDINGS: The lungs are overinflated. The heart is not enlarged. There is persistent right-sided pneu monia. This may have resolved slightly. There is blunting of both CP angles but I believe this is chr onic. There are rib deformities on the left. These are chronic. IMPRESSION: CONTINUING RIGHT-SIDED PNEUMONIA SUPERIMPOSED UPON COPD. THE OVERALL APPEARANCE MAY BE SLIGHTLY IMPRO LEXIS.
[2019-07-27 17:14] LABS: Glucose,Whole Blood 157 mg/dL (75-99)
[2019-07-27 20:43] LABS: Glucose,Whole Blood 189 mg/dL (75-99)
[2019-07-28] MEDS: HEPARIN SODIUM,PORCINE 5,000 UNIT/ML 1 ML VIAL SQ SCH ×3 (00:01→15:53)
[2019-07-28] MEDS: CEFEPIME 2 GM in SODIUM CHLORIDE 0.9% 100 ML IVPB SCH ×2 (00:01→11:14)
[2019-07-28] MEDS: guaiFENesin-DM 100-10MG/5ML 10 ML CUP PO SCH ×4 (03:54→20:53)
[2019-07-28] MEDS: VANCOMYCIN 750 MG in SODIUM CHLORIDE 0.9% 250 ML IVPB SCH ×2 (03:54→15:11)
[2019-07-28 06:54] LABS: Glucose,Whole Blood 150 mg/dL (75-99)
[2019-07-28] MEDS: IPRATROPIUM-ALBUTEROL 3 ML NEB INHALATION SCH ×4 (07:55→19:41)
[2019-07-28 08:28] LABS: African American GFR (CKD) >90 (>60 ml/min/1.73 sqM); Non-African American GFR(CKD) 87 (>60 ml/min/1.73 sqM)
[2019-07-28] MEDS: methylPREDNISolone SOD SUCCI 40 MG/ML 1 ML VIAL IV SCH ×2 (08:34→20:53)
[2019-07-28] MEDS: FAMOTIDINE 20 MG TAB PO SCH ×2 (08:34→20:53)
[2019-07-28] MEDS: FLUCONAZOLE 100 MG TAB PO SCH (08:35)
[2019-07-28] MEDS: LOSARTAN 25 MG TAB PO SCH (08:35)
[2019-07-28] MEDS: INSULIN ASPART (NovoLOG) 100 UNIT/ML VIAL SQ SCH ×4 (08:35→20:53)
[2019-07-28 11:27] LABS: Glucose,Whole Blood 165 mg/dL (75-99)
--- NOTE | 2019-07-28 13:42 | P.PN ---
Subjective Progress Note Date: 07/28/19 Principal diagnosis: Right lower lobe pneumonia, hospital-acquired This is a 79-year-old female patient with known history of severe oxygen- dependent COPD who presented to the emergency department last month and the patient was seen in consult by our service. The patient at that time she was having shortness of breath and she was diagnosed having COPD exacerbation and she was treated on outpatient basis with a combination of antibiotics and steroids and she was discharged home. She was having tracheal bronchitis. She was given IV antibiotics. She was given about treatments per she was given IV steroids. She did improve. She tested negative for the rao virus. At the time of discharge she was on 4 L of oxygen by nasal cannula and pulse ox is above 90% pH she typically uses 3 L of oxygen at home. At a time of discharge, she was asked to continue Anoro Ellipta in addition Symbicort maintenance in addition to to Ventolin rescue inhaler and DuoNeb nebulized treatments around the clock. The patient was also asked to take guaifenesin 600 mg every 12 hours on a when necessary basis. A CAT scan of the chest from 2018 showed moderate hyperinflation compatible with COPD with moderate upper lobe emphysematous change and parenchymal scarring in the right upper lobe. No evidence of any lung masses or tumors. The patient came in back to the emergency department on 07/22/2019 complaining of worsening shortness of breath. She was doing her breathing treatments frequently without much help. No fever. No chills. She did have a congested cough. The chest x-ray during the current admission showed an extensive right lower lobe pneumonia compared to the previous chest x-ray this was a new finding. The patient also has underlying COPD. No evidence of any heart failure. The patient was given Zithromax and admitted to the floor. The white cell count is 20.6. Troponin is less than 0.01. ProBNP level is 317. Lactic acid level is at 1.8. Covid 19 analysis still pending for now. On today's evaluation of 07/25/2019, I'm seeing this patient for a follow-up. She still is having difficulty breathing. She has a congested cough. Unable to bring up the sputum. A repeat chest x-ray was done and showed a involving the right midlung area. There is as bases also in the right lower lobe without any significant change compared to the previous chest x-ray from yesterday. This is obviously new onset consolidation and hospital-acquired pathogens need to be expected. I added cefepime. I'm going to add vancomycin also. The white cell count of 20.6. The patient is afebrile. The patient on 4 L about 2 by nasal cannula with a pulse ox of 97%. On 07/24/2019 patient seen in follow-up on the general medical floor, she is dyspneic with conversation, and with any exertion, but no acute distress, she remains on 4 L of oxygen the pulse ox of 96%, she is afebrile, hemodynamically patient is stable. Lung sounds reveal coarse inspiratory crackles at the right base, diminished breath sounds overall, she is on combination of cefepime and vancomycin, she states. Sample has been sent, and is pending at this time, today's labs have been reviewed leukocytosis is improving, white blood cell count is 16.0, hemoglobin of 11.2,, electrolytes are within normal limits, B1 is 37 creatinine 0.57, rao virus PCR test was negative. Pro-calcitonin level was elevated at 3.55 consistent with possibility of bacterial pneumonia. The patient is seen today 07/25/2019 in follow-up on the regular medical floor. She is currently resting fairly comfortably in bed. Still dyspneic with minimal conversation and minimal exertion. She is maintaining O2 saturations in the 90s on 4 L/m per nasal cannula. Sputum culture pending. Blood cultures revealing no growth to date. White count 15.8. Hemoglobin 11.8. Sodium 138. Potassium 4.5. Creatinine 0.66. She is currently on vancomycin and cefepime. Remains on bronchodilators, IV Solu-Medrol, Mucinex. The patient is seen today 07/26/2019 in follow-up on the regular medical floor. She is awake and alert in no acute distress. She remains quite dyspneic on minimal conversation and minimal exertion. She is still producing thick greenish yellow sputum. Sputum culture positive for MRSA and Cinthia blood culture shows no growth. White count 15.8. Hemoglobin 11.9. Sodium 139. Potassium 4.7. Creatinine 0.61. She is currently on vancomycin and cefepime along with IV Solu-Medrol, bronchodilators and Mucinex. The patient is seen today 07/27/2019 in follow-up on the regular medical floor. She is currently resting comfortably in bed. A bit less short of breath today compared to yesterday. Still with a loose productive cough. No fever chills. She is maintaining O2 saturations in the 90s on 4 L/m per nasal cannula. She's been afebrile. Sputum is causative for MRSA. Continued on vancomycin. Trough 24.0. Remains on bronchodilators and IV Solu-Medrol. On oral Diflucan. The patient is seen today 07/28/2019 in follow-up on the regular medical floor. She is awake and alert in no acute distress. Resting comfortably in bed. Continues to improve from the pulmonary standpoint. Maintaining O2 saturations in the 90s on 3 L/m per nasal cannula. She is afebrile. Chest x-ray continues to show right-sided pneumonia superimposed upon COPD. Slightly improved compared to admitting chest x-ray. Sputum was positive for MRSA and Cinthia. Blood cultures reveal no growth. Creatinine 0.61. Glucose 165. She is maintained on cefepime and vancomycin. Remains on bronchodilators, IV Solu- Medrol, Mucinex. Objective - Vital Signs Vital signs: Vital Signs Temp 97.9 F 07/28/19 07:00 Pulse 68 07/28/19 11:25 Resp 19 07/28/19 07:00 BP 149/82 07/28/19 07:00 Pulse Ox 93 L 07/28/19 07:00 Intake & Output 07/27/19 07/28/19 07/28/19 18:59 06:59 18:59 Intake Total 580 Balance 580 Weight 46.72 kg Intake: Intake, IV Titration 100 Amount Cefepime 2 gm In Sodium 100 Chloride 0.9% 100 ml @ 200 mls/hr IVPB Q12H [facility] Rx#:[id number] Oral 480 Other: # Voids 3 3 # Bowel Movements 1 - Exam GENERAL EXAM: Alert, very pleasant, cachectic 79-year-old female patient, on 3 L of oxygen with a pulse ox of 93%, comfortable in no apparent distress. HEAD: Normocephalic/atraumatic. EYES: Normal reaction of pupils, equal size. Conjunctiva pink, sclera white. NOSE: Clear with pink turbinates. THROAT: No erythema or exudates. NECK: No masses, no JVD, no thyroid enlargement, no adenopathy. CHEST: No chest wall deformity. Symmetrical expansion. LUNGS: Diminished air entry with inspiratory crackles at the right base, but no wheeze, rhonchi or dullness. CVS: Regular rate and rhythm, normal S1 and S2, no gallops, no murmurs, no rubs ABDOMEN: Soft, nontender. No hepatosplenomegaly, normal bowel sounds, no guarding or rigidity. EXTREMITIES: No clubbing, no edema, no cyanosis, 2+ pulses and upper and lower extremities. MUSCULOSKELETAL: Muscle strength and tone normal. SPINE: No scoliosis or deformity SKIN: No rashes CENTRAL NERVOUS SYSTEM: No focal deficits, tone is normal in all 4 extremities. PSYCHIATRIC: Alert and oriented -3. Appropriate affect. Intact judgment and insight. - Labs CBC & Chem 7: 07/26/19 07:42 07/28/19 07:09 Labs: Abnormal Lab Results - Last 24 Hours (Table) 07/27/19 07/27/19 07/28/19 Range/Units 17:12 20:42 06:53 POC Glucose (mg/dL) 157 H 189 H 150 H (75-99) mg/dL 07/28/19 Range/Units 11:25 POC Glucose (mg/dL) 165 H (75-99) mg/dL Microbiology - Last 24 Hours (Table) 07/22/19 20:50 Blood Culture - Preliminary Blood No Growth after 120 hours Assessment and Plan Assessment: 1 right lower lobe pneumonia, secondary to MRSA and Cinthia and the patient was hospitalized recently in June 2019 for COPD exacerbation 2 acute COPD exacerbation secondary to above 3 shortness of breath secondary to above 4 advanced COPD with chronic hypoxic respiratory failure admitted on oxygen at 3 L and the patient has an FEV1 of 49% of predicted at baseline and the patient has been maintained on a combination of Symbicort and Anoro in addition to albuterol and Ventolin rescue inhaler on as needed basis 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 Linda Chest x-ray reviewed Continue vancomycin and cefepime Remains on Diflucan Continue bronchodilators, Mucinex and IV Solu-Medrol Titrate down the FiO2 as tolerated Increase her activity as tolerated We'll continue to follow I, the cosigning physician, performed a history & physical examination of the patient. Lungs sounds with inspiratory crackles of the right lung, diminished. Maintaining good O2 saturations in the 90s on 3 L/m per nasal cannula. I discussed the assessment and plan of care with my nurse practitioner, Darlene Underwood. I attest to the above note as dictated by her.
--- NOTE | 2019-07-28 15:23 | P.PN ---
Subjective this is a pleasant 79 years old female with past medical history of COPD, pneumonia.she follows up with Dr. Wolfe.patient presents with progressive dyspnea associated with productive cough with green yellow phlegm. No chest pain. No fever. She is on home oxygen 3 nuclear via nasal cannula. No abdominal pain, no nausea vomiting, no change in urine or bowel habits. patient showing saturation of oxygen at 97% on 4 L oxygen via nasal cannula, patient is afebrile. on admission she has leukocytosis of 20.6 K, INR and results of CBC is unremark able. Liver enzymes not elevated, LDH is 768, C-reactive protein is 238 and ferritin is pending chest x-ray showing large masslike area of consolidation in the right mid lung zone EKG showing sinus tachycardia at 1 or [address]-T changes in the emergency room she was started on Rocephin and Zithromax, steroids and breathing treatment. Vancomycin is also added 07/24/2019 Patient still complaining of from dyspnea and coughing same as she came in. She is fully awake and oriented. No chest pain she saturating 96% on 4 L oxygen of the nasal cannula WBCs 16, rest of CBC and BMP is unremarkable. Patient is followed closely by pulmonary team. she remains on cefepime and vancomycin. Also she is on Solu-Medrol 40 mg twice daily. 07/25/2019 Patient is still significantly dyspneic and she could not finish talking to her sentences She is saturating 91-97% and 4 L oxygen of the nasal cannula. WBC 15.8 K, BMP is unremarkable. Gram stain showing few gram-positive cocci and rare gram- positive bacilli. Chest x-ray showing better orientation may be small right pleural effusion and reviewed by me. She remains on cefepime and vancomycin. 07/26/2019 Patient remains dyspneic and short of breath. Especially when she tries to talk. She remains on oxygen saturation of 4 L/m via nasal cannula and saturating at 90, rest of vitals are stable. WBC 15.8 K. BMP and glucose is un remarkable. Sputum culture is growing MRSA and cody. Patient is already on vancomycin and cefepime, we'll add Diflucan for a few days 07/27/2019 patient is awake and alert, she is improving slowly, she still dyspneic with coughing however she said that she is breathing more easily. She saturating 91% on 4 L oxygen. However she reports loose stool today, check for C. diff. No Abdominal pain or nausea vomiting. She is still on vancomycin for MRSA by pulmonary team who following the patient closely 07/28/2019 Patient is improving slowly however she still have some difficulty when talking. The scope is slightly better. She still has diarrhea but o'clock yesterday when it was running throughout the whole day compared today she has only 3 bowel movements since morning. Vitals are stable and remains unsedated to oxygen via nasal cannula. However she is less to keep it Creatinine 0.6 while she remains on IV vancomycin and cefepime Repeat chest x-ray looks improved when reviewed by me Objective - Vital Signs Vital signs: Vital Signs Temp 98.5 F 07/28/19 15:00 Pulse 73 07/28/19 15:00 Resp 16 07/28/19 15:00 BP 147/80 07/28/19 15:00 Pulse Ox 98 07/28/19 15:00 Intake & Output 07/27/19 07/28/19 07/28/19 18:59 06:59 18:59 Intake Total 580 Balance 580 Weight 46.72 kg Intake: Intake, IV Titration 100 Amount Cefepime 2 gm In Sodium 100 Chloride 0.9% 100 ml @ 200 mls/hr IVPB Q12H [facility] Rx#:[id number] Oral 480 Other: # Voids 3 3 # Bowel Movements 1 - Exam GENERAL: The patient is alert and oriented x3, not in any acute distress. Well developed, well nourished. HEENT: Pupils are round and equally reacting to light. EOMI. No scleral icterus. No conjunctival pallor. Normocephalic, atraumatic. No pharyngeal erythema. No thyromegaly. CARDIOVASCULAR: S1 and S2 present. No murmurs, rubs, or gallops. -PULMONARY: Chest is clear to auscultation, decreased breath sounds on the right lung with scattered wheezing ABDOMEN: Soft, nontender, nondistended, normoactive bowel sounds. No palpable organomegaly. MUSCULOSKELETAL: No joint swelling or deformity. EXTREMITIES: No cyanosis, clubbing, or pedal edema. NEUROLOGICAL: Gross neurological examination did not reveal any focal deficits. SKIN: No rashes. No petechiae - Labs CBC & Chem 7: 07/26/19 07:42 07/28/19 07:09 Labs: Abnormal Lab Results - Last 24 Hours (Table) 07/27/19 07/27/19 07/28/19 Range/Units 17:12 20:42 06:53 POC Glucose (mg/dL) 157 H 189 H 150 H (75-99) mg/dL 07/28/19 Range/Units 11:25 POC Glucose (mg/dL) 165 H (75-99) mg/dL Microbiology - Last 24 Hours (Table) 07/22/19 20:50 Blood Culture - Preliminary Blood No Growth after 120 hours Assessment and Plan Assessment: masslike area of consolidation in the right mid lung zone, suspicious for right pneumonia. Cannot exclude cancer Acute COPD exacerbation hypertension Sinusitis Plan: this is a pleasant 79 years old female who presents with pneumonia and right lung mass like consolidation. COPD. Continue with antibiotic, follow-up sputum culture, continuewith steroids.pulmonary consult Labs and medication were reviewed.. Continue same treatment. Continue with symptomatic treatment. Resume home medication. Monitor lytes and vitals. DVT and GI prophylaxis. Further recommendations of the clinical course of the patient DVT prophylaxis: Subcutaneous heparin GI Prophylaxis: Pepcid PT/OT: Pending Prognosis is guarded
[2019-07-28 16:34] LABS: Glucose,Whole Blood 134 mg/dL (75-99)
[2019-07-28 20:25] LABS: Glucose,Whole Blood 175 mg/dL (75-99)
[2019-07-29] MEDS: CEFEPIME 2 GM in SODIUM CHLORIDE 0.9% 100 ML IVPB SCH ×3 (00:04→22:58)
[2019-07-29] MEDS: VANCOMYCIN 750 MG in SODIUM CHLORIDE 0.9% 250 ML IVPB SCH ×3 (00:46→19:49)
[2019-07-29] MEDS: HEPARIN SODIUM,PORCINE 5,000 UNIT/ML 1 ML VIAL SQ SCH ×4 (00:46→23:27)
[2019-07-29] MEDS: guaiFENesin-DM 100-10MG/5ML 10 ML CUP PO SCH ×4 (06:30→20:23)
[2019-07-29 06:55] LABS: Glucose,Whole Blood 125 mg/dL (75-99)
[2019-07-29] MEDS: INSULIN ASPART (NovoLOG) 100 UNIT/ML VIAL SQ SCH ×4 (07:16→20:18)
[2019-07-29 07:48] LABS: African American GFR (CKD) >90 (>60 ml/min/1.73 sqM); Non-African American GFR(CKD) >90 (>60 ml/min/1.73 sqM)
[2019-07-29] MEDS: methylPREDNISolone SOD SUCCI 40 MG/ML 1 ML VIAL IV SCH ×2 (08:05→20:23)
[2019-07-29] MEDS: LOSARTAN 25 MG TAB PO SCH (08:05)
[2019-07-29] MEDS: FLUCONAZOLE 100 MG TAB PO SCH (08:05)
[2019-07-29] MEDS: FAMOTIDINE 20 MG TAB PO SCH ×2 (08:05→20:23)
[2019-07-29] MEDS: IPRATROPIUM-ALBUTEROL 3 ML NEB INHALATION SCH ×4 (08:35→19:29)
--- NOTE | 2019-07-29 10:17 | XR ---
EXAMINATION TYPE: XR chest 1V portable DATE OF EXAM: 07/29/2019 COMPARISON: 07/27/2019 INDICATION: Right lung pneumonia TECHNIQUE: Single frontal view of the chest is obtained. FINDINGS: The heart size is normal. The pulmonary vasculature is normal. Minimal pleural effusions are not excluded. There is blunting of bilateral costophrenic angles. There is persistence of the new irregular consolidation within the right midlung. Pneumonia remains w ithin the differential. This should be followed to clearing. There is improvement of the right lower lobe infiltrate. IMPRESSION: 1. Improving right midlung consolidation. 2. Improving right lower lobe infiltrate. 3. Small bilateral pleural effusions likely remain present.
--- NOTE | 2019-07-29 10:54 | P.PN ---
Subjective this is a pleasant 79 years old female with past medical history of COPD, pneumonia.she follows up with Dr. Wolfe.patient presents with progressive dyspnea associated with productive cough with green yellow phlegm. No chest pain. No fever. She is on home oxygen 3 nuclear via nasal cannula. No abdominal pain, no nausea vomiting, no change in urine or bowel habits. patient showing saturation of oxygen at 97% on 4 L oxygen via nasal cannula, patient is afebrile. on admission she has leukocytosis of 20.6 K, INR and results of CBC is unremark able. Liver enzymes not elevated, LDH is 768, C-reactive protein is 238 and ferritin is pending chest x-ray showing large masslike area of consolidation in the right mid lung zone EKG showing sinus tachycardia at 1 or [address]-T changes in the emergency room she was started on Rocephin and Zithromax, steroids and breathing treatment. Vancomycin is also added 07/24/2019 Patient still complaining of from dyspnea and coughing same as she came in. She is fully awake and oriented. No chest pain she saturating 96% on 4 L oxygen of the nasal cannula WBCs 16, rest of CBC and BMP is unremarkable. Patient is followed closely by pulmonary team. she remains on cefepime and vancomycin. Also she is on Solu-Medrol 40 mg twice daily. 07/25/2019 Patient is still significantly dyspneic and she could not finish talking to her sentences She is saturating 91-97% and 4 L oxygen of the nasal cannula. WBC 15.8 K, BMP is unremarkable. Gram stain showing few gram-positive cocci and rare gram- positive bacilli. Chest x-ray showing better orientation may be small right pleural effusion and reviewed by me. She remains on cefepime and vancomycin. 07/26/2019 Patient remains dyspneic and short of breath. Especially when she tries to talk. She remains on oxygen saturation of 4 L/m via nasal cannula and saturating at 90, rest of vitals are stable. WBC 15.8 K. BMP and glucose is un remarkable. Sputum culture is growing MRSA and cody. Patient is already on vancomycin and cefepime, we'll add Diflucan for a few days 07/27/2019 patient is awake and alert, she is improving slowly, she still dyspneic with coughing however she said that she is breathing more easily. She saturating 91% on 4 L oxygen. However she reports loose stool today, check for C. diff. No Abdominal pain or nausea vomiting. She is still on vancomycin for MRSA by pulmonary team who following the patient closely 07/28/2019 Patient is improving slowly however she still have some difficulty when talking. The scope is slightly better. She still has diarrhea but o'clock yesterday when it was running throughout the whole day compared today she has only 3 bowel movements since morning. Vitals are stable and remains unsedated to oxygen via nasal cannula. However she is less to keep it Creatinine 0.6 while she remains on IV vancomycin and cefepime Repeat chest x-ray looks improved when reviewed by me 07/29/2019 She's awake, breathing easier. She still can easier. Vitals stable, she still saturating high 90s on 3 L and then went down her oxygen level. Creatinine 0.4, sugar controlled She still needs to be on cefepime, vancomycin and some Medrol 40 mg Objective - Vital Signs Vital signs: Vital Signs Temp 98.2 F 07/29/19 07:00 Pulse 68 07/29/19 08:35 Resp 18 07/29/19 08:00 BP 164/81 07/29/19 07:00 Pulse Ox 98 07/29/19 07:00 Intake & Output 07/28/19 07/29/19 07/29/19 18:59 06:59 18:59 Weight 46.72 kg Other: Voiding Method Bedside Commode Bedside Commode # Voids 1 1 - Exam GENERAL: The patient is alert and oriented x3, not in any acute distress. Well developed, well nourished. HEENT: Pupils are round and equally reacting to light. EOMI. No scleral icterus. No conjunctival pallor. Normocephalic, atraumatic. No pharyngeal erythema. No thyromegaly. CARDIOVASCULAR: S1 and S2 present. No murmurs, rubs, or gallops. -PULMONARY: Chest is clear to auscultation, decreased breath sounds on the right lung with scattered wheezing ABDOMEN: Soft, nontender, nondistended, normoactive bowel sounds. No palpable organomegaly. MUSCULOSKELETAL: No joint swelling or deformity. EXTREMITIES: No cyanosis, clubbing, or pedal edema. NEUROLOGICAL: Gross neurological examination did not reveal any focal deficits. SKIN: No rashes. No petechiae - Labs CBC & Chem 7: 07/26/19 07:42 07/29/19 06:34 Labs: Abnormal Lab Results - Last 24 Hours (Table) 07/27/19 07/28/19 07/28/19 Range/Units 07:33 11:25 16:33 Creatinine (0.52-1.04) mg/dL POC Glucose (mg/dL) 165 H 134 H (75-99) mg/dL Procalcitonin 0.29 H (0.02-0.09) ng/mL 07/28/19 07/29/19 07/29/19 Range/Units 20:23 06:34 06:54 Creatinine 0.47 L (0.52-1.04) mg/dL POC Glucose (mg/dL) 175 H 125 H (75-99) mg/dL Procalcitonin (0.02-0.09) ng/mL Microbiology - Last 24 Hours (Table) 07/22/19 20:50 Blood Culture - Final Blood No Growth after 144 hours Assessment and Plan Assessment: masslike area of consolidation in the right mid lung zone, suspicious for right pneumonia. Cannot exclude cancer Acute COPD exacerbation hypertension Sinusitis Plan: this is a pleasant 79 years old female who presents with pneumonia and right lung mass like consolidation. COPD. Continue with antibiotic, follow-up sputum culture, continuewith steroids.pulmonary consult Labs and medication were reviewed.. Continue same treatment. Continue with symptomatic treatment. Resume home medication. Monitor lytes and vitals. DVT and GI prophylaxis. Further recommendations of the clinical course of the patient DVT prophylaxis: Subcutaneous heparin GI Prophylaxis: Pepcid PT/OT: Pending Prognosis is guarded
[2019-07-29 11:25] LABS: Glucose,Whole Blood 103 mg/dL (75-99)
--- NOTE | 2019-07-29 12:04 | P.PN ---
Subjective Progress Note Date: 07/29/19 Principal diagnosis: Right lower lobe pneumonia, hospital-acquired This is a 79-year-old female patient with known history of severe oxygen- dependent COPD who presented to the emergency department last month and the patient was seen in consult by our service. The patient at that time she was having shortness of breath and she was diagnosed having COPD exacerbation and she was treated on outpatient basis with a combination of antibiotics and steroids and she was discharged home. She was having tracheal bronchitis. She was given IV antibiotics. She was given about treatments per she was given IV steroids. She did improve. She tested negative for the rao virus. At the time of discharge she was on 4 L of oxygen by nasal cannula and pulse ox is above 90% pH she typically uses 3 L of oxygen at home. At a time of discharge, she was asked to continue Anoro Ellipta in addition Symbicort maintenance in addition to to Ventolin rescue inhaler and DuoNeb nebulized treatments around the clock. The patient was also asked to take guaifenesin 600 mg every 12 hours on a when necessary basis. A CAT scan of the chest from 2018 showed moderate hyperinflation compatible with COPD with moderate upper lobe emphysematous change and parenchymal scarring in the right upper lobe. No evidence of any lung masses or tumors. The patient came in back to the emergency department on 07/22/2019 complaining of worsening shortness of breath. She was doing her breathing treatments frequently without much help. No fever. No chills. She did have a congested cough. The chest x-ray during the current admission showed an extensive right lower lobe pneumonia compared to the previous chest x-ray this was a new finding. The patient also has underlying COPD. No evidence of any heart failure. The patient was given Zithromax and admitted to the floor. The white cell count is 20.6. Troponin is less than 0.01. ProBNP level is 317. Lactic acid level is at 1.8. Covid 19 analysis still pending for now. On today's evaluation of 07/25/2019, I'm seeing this patient for a follow-up. She still is having difficulty breathing. She has a congested cough. Unable to bring up the sputum. A repeat chest x-ray was done and showed a involving the right midlung area. There is as bases also in the right lower lobe without any significant change compared to the previous chest x-ray from yesterday. This is obviously new onset consolidation and hospital-acquired pathogens need to be expected. I added cefepime. I'm going to add vancomycin also. The white cell count of 20.6. The patient is afebrile. The patient on 4 L about 2 by nasal cannula with a pulse ox of 97%. On 07/24/2019 patient seen in follow-up on the general medical floor, she is dyspneic with conversation, and with any exertion, but no acute distress, she remains on 4 L of oxygen the pulse ox of 96%, she is afebrile, hemodynamically patient is stable. Lung sounds reveal coarse inspiratory crackles at the right base, diminished breath sounds overall, she is on combination of cefepime and vancomycin, she states. Sample has been sent, and is pending at this time, today's labs have been reviewed leukocytosis is improving, white blood cell count is 16.0, hemoglobin of 11.2,, electrolytes are within normal limits, B1 is 37 creatinine 0.57, rao virus PCR test was negative. Pro-calcitonin level was elevated at 3.55 consistent with possibility of bacterial pneumonia. The patient is seen today 07/25/2019 in follow-up on the regular medical floor. She is currently resting fairly comfortably in bed. Still dyspneic with minimal conversation and minimal exertion. She is maintaining O2 saturations in the 90s on 4 L/m per nasal cannula. Sputum culture pending. Blood cultures revealing no growth to date. White count 15.8. Hemoglobin 11.8. Sodium 138. Potassium 4.5. Creatinine 0.66. She is currently on vancomycin and cefepime. Remains on bronchodilators, IV Solu-Medrol, Mucinex. The patient is seen today 07/26/2019 in follow-up on the regular medical floor. She is awake and alert in no acute distress. She remains quite dyspneic on minimal conversation and minimal exertion. She is still producing thick greenish yellow sputum. Sputum culture positive for MRSA and Cinthia blood culture shows no growth. White count 15.8. Hemoglobin 11.9. Sodium 139. Potassium 4.7. Creatinine 0.61. She is currently on vancomycin and cefepime along with IV Solu-Medrol, bronchodilators and Mucinex. The patient is seen today 07/27/2019 in follow-up on the regular medical floor. She is currently resting comfortably in bed. A bit less short of breath today compared to yesterday. Still with a loose productive cough. No fever chills. She is maintaining O2 saturations in the 90s on 4 L/m per nasal cannula. She's been afebrile. Sputum is causative for MRSA. Continued on vancomycin. Trough 24.0. Remains on bronchodilators and IV Solu-Medrol. On oral Diflucan. The patient is seen today 07/28/2019 in follow-up on the regular medical floor. She is awake and alert in no acute distress. Resting comfortably in bed. Continues to improve from the pulmonary standpoint. Maintaining O2 saturations in the 90s on 3 L/m per nasal cannula. She is afebrile. Chest x-ray continues to show right-sided pneumonia superimposed upon COPD. Slightly improved compared to admitting chest x-ray. Sputum was positive for MRSA and Cinthia. Blood cultures reveal no growth. Creatinine 0.61. Glucose 165. She is maintained on cefepime and vancomycin. Remains on bronchodilators, IV Solu- Medrol, Mucinex. The patient is seen today 07/29/2019 in follow-up on the regular medical floor. She is currently resting comfortably in bed. Awake and alert in no acute distress. Breathing a bit easier today compared to yesterday. She is maintaining O2 saturations in the 90s on 3 L/m per nasal cannula. She's been afebrile. Hemodynamically stable. Sputum culture was positive for MRSA and Cinthia. Creatinine 0.47. She is continued on vancomycin and cefepime. Follow-up chest x-ray reveals improving right mid lung consolidation, improved right lower lobe infiltrate. Small bilateral effusions remain. Objective - Vital Signs Vital signs: Vital Signs Temp 98.2 F 07/29/19 07:00 Pulse 72 07/29/19 11:50 Resp 18 07/29/19 08:00 BP 164/81 07/29/19 07:00 Pulse Ox 98 07/29/19 07:00 Intake & Output 07/28/19 07/29/19 07/29/19 18:59 06:59 18:59 Weight 46.72 kg Other: Voiding Method Bedside Commode Bedside Commode # Voids 1 1 - Exam GENERAL EXAM: Alert, very pleasant, cachectic 79-year-old female patient, on 3 L of oxygen with a pulse ox of 98%, comfortable in no apparent distress. HEAD: Normocephalic/atraumatic. EYES: Normal reaction of pupils, equal size. Conjunctiva pink, sclera white. NOSE: Clear with pink turbinates. THROAT: No erythema or exudates. NECK: No masses, no JVD, no thyroid enlargement, no adenopathy. CHEST: No chest wall deformity. Symmetrical expansion. LUNGS: Diminished air entry with inspiratory crackles at the right base, but no wheeze, rhonchi or dullness. CVS: Regular rate and rhythm, normal S1 and S2, no gallops, no murmurs, no rubs ABDOMEN: Soft, nontender. No hepatosplenomegaly, normal bowel sounds, no guarding or rigidity. EXTREMITIES: No clubbing, no edema, no cyanosis, 2+ pulses and upper and lower extremities. MUSCULOSKELETAL: Muscle strength and tone normal. SPINE: No scoliosis or deformity SKIN: No rashes CENTRAL NERVOUS SYSTEM: No focal deficits, tone is normal in all 4 extremities. PSYCHIATRIC: Alert and oriented -3. Appropriate affect. Intact judgment and insight. - Labs CBC & Chem 7: 07/26/19 07:42 07/29/19 06:34 Labs: Abnormal Lab Results - Last 24 Hours (Table) 07/27/19 07/28/19 07/28/19 Range/Units 07:33 16:33 20:23 Creatinine (0.52-1.04) mg/dL POC Glucose (mg/dL) 134 H 175 H (75-99) mg/dL Procalcitonin 0.29 H (0.02-0.09) ng/mL 07/29/19 07/29/19 07/29/19 Range/Units 06:34 06:54 11:24 Creatinine 0.47 L (0.52-1.04) mg/dL POC Glucose (mg/dL) 125 H 103 H (75-99) mg/dL Procalcitonin (0.02-0.09) ng/mL Microbiology - Last 24 Hours (Table) 07/22/19 20:50 Blood Culture - Final Blood No Growth after 144 hours Assessment and Plan Assessment: 1 right lower lobe pneumonia, secondary to MRSA and Cinthia and the patient was hospitalized recently in June 2019 for COPD exacerbation 2 acute COPD exacerbation secondary to above 3 shortness of breath secondary to above 4 advanced COPD with chronic hypoxic respiratory failure admitted on oxygen at 3 L and the patient has an FEV1 of 49% of predicted at baseline and the patient has been maintained on a combination of Symbicort and Anoro in addition to albuterol and Ventolin rescue inhaler on as needed basis 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 Linda Chest x-ray reviewed and showing improvement Continue vancomycin and cefepime Remains on Diflucan Continue bronchodilators, Mucinex and IV Solu-Medrol Titrate down the FiO2 as tolerated Increase her activity as tolerated He did discuss with her regarding CODE STATUS. She states she would not want any long-term life support. She'll be discussing this with her family. We'll continue to follow I, the cosigning physician, performed a history & physical examination of the p atient. Lungs sounds with inspiratory crackles of the right lung, diminished. Maintaining good O2 saturations in the 90s on 3 L/m per nasal cannula. I discussed the assessment and plan of care with my nurse practitioner, Darlene Underwood. I attest to the above note as dictated by her.
[2019-07-29 16:51] LABS: Glucose,Whole Blood 216 mg/dL (75-99)
[2019-07-29 19:59] LABS: Glucose,Whole Blood 108 mg/dL (75-99)
[2019-07-30] MEDS: guaiFENesin-DM 100-10MG/5ML 10 ML CUP PO SCH ×3 (04:50→15:28)
[2019-07-30] MEDS: VANCOMYCIN 750 MG in SODIUM CHLORIDE 0.9% 250 ML IVPB SCH ×2 (04:50→15:28)
[2019-07-30 07:07] LABS: African American GFR (CKD) >90 (>60 ml/min/1.73 sqM); Non-African American GFR(CKD) 89 (>60 ml/min/1.73 sqM)
[2019-07-30] MEDS: IPRATROPIUM-ALBUTEROL 3 ML NEB INHALATION SCH ×5 (07:15→19:43)
[2019-07-30 07:40] LABS: Glucose,Whole Blood 114 mg/dL (75-99)
[2019-07-30] MEDS: INSULIN ASPART (NovoLOG) 100 UNIT/ML VIAL SQ SCH ×4 (07:53→21:14)
[2019-07-30] MEDS: HEPARIN SODIUM,PORCINE 5,000 UNIT/ML 1 ML VIAL SQ SCH ×2 (08:00→15:28)
[2019-07-30] MEDS: FAMOTIDINE 20 MG TAB PO SCH ×2 (08:01→21:09)
[2019-07-30] MEDS: LOSARTAN 25 MG TAB PO SCH (08:01)
[2019-07-30] MEDS: methylPREDNISolone SOD SUCCI 40 MG/ML 1 ML VIAL IV SCH ×2 (08:01→21:09)
[2019-07-30] MEDS: FLUCONAZOLE 100 MG TAB PO SCH (08:01)
[2019-07-30 11:40] LABS: Glucose,Whole Blood 106 mg/dL (75-99)
--- NOTE | 2019-07-30 12:13 | P.PN ---
Subjective this is a pleasant 79 years old female with past medical history of COPD, pneumonia.she follows up with Dr. Wolfe.patient presents with progressive dyspnea associated with productive cough with green yellow phlegm. No chest pain. No fever. She is on home oxygen 3 nuclear via nasal cannula. No abdominal pain, no nausea vomiting, no change in urine or bowel habits. patient showing saturation of oxygen at 97% on 4 L oxygen via nasal cannula, patient is afebrile. on admission she has leukocytosis of 20.6 K, INR and results of CBC is unremark able. Liver enzymes not elevated, LDH is 768, C-reactive protein is 238 and ferritin is pending chest x-ray showing large masslike area of consolidation in the right mid lung zone EKG showing sinus tachycardia at 1 or [address]-T changes in the emergency room she was started on Rocephin and Zithromax, steroids and breathing treatment. Vancomycin is also added 07/24/2019 Patient still complaining of from dyspnea and coughing same as she came in. She is fully awake and oriented. No chest pain she saturating 96% on 4 L oxygen of the nasal cannula WBCs 16, rest of CBC and BMP is unremarkable. Patient is followed closely by pulmonary team. she remains on cefepime and vancomycin. Also she is on Solu-Medrol 40 mg twice daily. 07/25/2019 Patient is still significantly dyspneic and she could not finish talking to her sentences She is saturating 91-97% and 4 L oxygen of the nasal cannula. WBC 15.8 K, BMP is unremarkable. Gram stain showing few gram-positive cocci and rare gram- positive bacilli. Chest x-ray showing better orientation may be small right pleural effusion and reviewed by me. She remains on cefepime and vancomycin. 07/26/2019 Patient remains dyspneic and short of breath. Especially when she tries to talk. She remains on oxygen saturation of 4 L/m via nasal cannula and saturating at 90, rest of vitals are stable. WBC 15.8 K. BMP and glucose is un remarkable. Sputum culture is growing MRSA and cody. Patient is already on vancomycin and cefepime, we'll add Diflucan for a few days 07/27/2019 patient is awake and alert, she is improving slowly, she still dyspneic with coughing however she said that she is breathing more easily. She saturating 91% on 4 L oxygen. However she reports loose stool today, check for C. diff. No Abdominal pain or nausea vomiting. She is still on vancomycin for MRSA by pulmonary team who following the patient closely 07/28/2019 Patient is improving slowly however she still have some difficulty when talking. The scope is slightly better. She still has diarrhea but o'clock yesterday when it was running throughout the whole day compared today she has only 3 bowel movements since morning. Vitals are stable and remains unsedated to oxygen via nasal cannula. However she is less to keep it Creatinine 0.6 while she remains on IV vancomycin and cefepime Repeat chest x-ray looks improved when reviewed by me 07/29/2019 She's awake, breathing easier. She still can easier. Vitals stable, she still saturating high 90s on 3 L and then went down her oxygen level. Creatinine 0.4, sugar controlled She still needs to be on cefepime, vancomycin and some Medrol 40 mg 07/30/2019 Patient today for the first time states that she feels better and she is pleasant. She was able to walk around the room. However she still gets tired when she talks a little bit more. Oxygen saturation 97% on 3 L. Sugar controlled and creatinine 0.5 She remains on cefepime, vancomycin and Solu-Medrol 40 mg twice a day. Objective - Vital Signs Vital signs: Vital Signs Temp 97.7 F 07/30/19 07:00 Pulse 84 07/30/19 11:15 Resp 18 07/30/19 08:00 BP 163/83 07/30/19 07:00 Pulse Ox 97 07/30/19 09:05 Intake & Output 07/29/19 07/30/19 07/30/19 18:59 06:59 18:59 Intake Total 350 Balance 350 Intake: Intake, IV Titration 350 Amount Cefepime 2 gm In Sodium 100 Chloride 0.9% 100 ml @ 200 mls/hr IVPB Q12H RUBIN Rx#:[id number] Vancomycin 750 mg In 250 Sodium Chloride 0.9% 250 ml @ 125 mls/hr IVPB Q10H RUBIN Rx#:[id number] Other: Voiding Method Bedside Commode Bedside Commode Bedside Commode # Voids 2 1 1 - Exam GENERAL: The patient is alert and oriented x3, not in any acute distress. Well developed, well nourished. HEENT: Pupils are round and equally reacting to light. EOMI. No scleral icterus. No conjunctival pallor. Normocephalic, atraumatic. No pharyngeal erythema. No thyromegaly. CARDIOVASCULAR: S1 and S2 present. No murmurs, rubs, or gallops. -PULMONARY: Chest is clear to auscultation, decreased breath sounds on the right lung with scattered wheezing ABDOMEN: Soft, nontender, nondistended, normoactive bowel sounds. No palpable organomegaly. MUSCULOSKELETAL: No joint swelling or deformity. EXTREMITIES: No cyanosis, clubbing, or pedal edema. NEUROLOGICAL: Gross neurological examination did not reveal any focal deficits. SKIN: No rashes. No petechiae - Labs CBC & Chem 7: 07/26/19 07:42 07/30/19 05:18 Labs: Abnormal Lab Results - Last 24 Hours (Table) 07/29/19 07/29/19 07/29/19 Range/Units 06:34 16:50 19:57 POC Glucose (mg/dL) 216 H 108 H (75-99) mg/dL Procalcitonin 0.12 H (0.02-0.09) ng/mL 07/30/19 07/30/19 Range/Units 07:39 11:39 POC Glucose (mg/dL) 114 H 106 H (75-99) mg/dL Procalcitonin (0.02-0.09) ng/mL Assessment and Plan Assessment: masslike area of consolidation in the right mid lung zone, suspicious for right pneumonia. Cannot exclude cancer Acute COPD exacerbation hypertension Sinusitis Plan: this is a pleasant 79 years old female who presents with pneumonia and right lung mass like consolidation. COPD. Continue with antibiotic, follow-up sputum culture, continuewith steroids.pulmonary consult Labs and medication were reviewed.. Continue same treatment. Continue with symptomatic treatment. Resume home medication. Monitor lytes and vitals. DVT and GI prophylaxis. Further recommendations of the clinical course of the patient DVT prophylaxis: Subcutaneous heparin GI Prophylaxis: Pepcid PT/OT: Pending Prognosis is guarded
[2019-07-30] MEDS ORDERED: IPRATROPIUM-ALBUTEROL 3 ML NEB INHALATION PRN (13:47)
--- NOTE | 2019-07-30 13:48 | P.PN ---
Subjective Progress Note Date: 07/30/19 Principal diagnosis: Right lower lobe pneumonia, likely hospital acquired pathogen related This is a 79-year-old male patient with known history of severe oxygen-dependent COPD who presented to the emergency department last month and the patient was seen in consult by our service. The patient at that time she was having shortness of breath and she was diagnosed having COPD exacerbation and she was treated on outpatient basis with a combination of antibiotics and steroids and she was discharged home. She was having tracheal bronchitis. She was given IV antibiotics. She was given about treatments per she was given IV steroids. She did improve. She tested negative for the rao virus. At the time of discharge she was on 4 L of oxygen by nasal cannula and pulse ox is above 90% pH she typically uses 3 L of oxygen at home. At a time of discharge, she was asked to continue Anoro Ellipta in addition Symbicort maintenance in addition to to Ventolin rescue inhaler and DuoNeb nebulized treatments around the clock. The patient was also asked to take guaifenesin 600 mg every 12 hours on a when necessary basis. A CAT scan of the chest from 2019 showed moderate hyp erinflation compatible with COPD with moderate upper lobe emphysematous change and parenchymal scarring in the right upper lobe. No evidence of any lung masses or tumors. The patient came in back to the emergency department on 07/22/2019 complaining of worsening shortness of breath. She was doing her breathing treatments frequently without much help. No fever. No chills. She did have a congested cough. The chest x-ray during the current admission showed an extensive right lower lobe pneumonia compared to the previous chest x-ray this was a new finding. The patient also has underlying COPD. No evidence of any heart failure. The patient was given Zithromax and admitted to the floor. The white cell count is 20.6. Troponin is less than 0.01. ProBNP level is 317. Lactic acid level is at 1.8. Covid 19 analysis still pending for now. On today's evaluation of 07/25/2019, I'm seeing this patient for a follow-up. She still is having difficulty breathing. She has a congested cough. Unable to bring up the sputum. A repeat chest x-ray was done and showed a involving the right midlung area. There is as bases also in the right lower lobe without any significant change compared to the previous chest x-ray from yesterday. This is obviously new onset consolidation and hospital-acquired pathogens need to be expected. I added cefepime. I'm going to add vancomycin also. The white cell count of 20.6. The patient is afebrile. The patient on 4 L about 2 by nasal cannula with a pulse ox of 97%. On 07/24/2019 patient seen in follow-up on the general medical floor, she is dyspneic with conversation, and with any exertion, but no acute distress, she remains on 4 L of oxygen the pulse ox of 96%, she is afebrile, hemodynamically patient is stable. Lung sounds reveal coarse inspiratory crackles at the right base, diminished breath sounds overall, she is on combination of cefepime and vancomycin, she states. Sample has been sent, and is pending at this time, today's labs have been reviewed leukocytosis is improving, white blood cell count is 16.0, hemoglobin of 11.2,, electrolytes are within normal limits, B1 is 37 creatinine 0.57, rao virus PCR test was negative. Pro-calcitonin level was elevated at 3.55 consistent with possibility of bacterial pneumonia On 07/30/2019 patient is seen in follow-up on general medical floor. Still quiets significantly dyspneic with any conversation or any exertion, but appears to be in no acute distress, she is on 3 L of oxygen a pulse ox of 97%, patient is afebrile, her sputum culture revealed MRSA and Cinthia albicans, and patient is currently on combination of vancomycin and Diflucan, she is on IV steroids and Mucinex. No new chest x-ray today, yesterday's chest x-ray showed persistence of right lung pneumonia though showing some limited improvement. Her pro-calcitonin continues to trend down, and is down to 0.12 on yesterday's labs. Patient has had no fever or chills. Objective - Vital Signs Vital signs: Vital Signs Temp 97.7 F 07/30/19 07:00 Pulse 84 07/30/19 11:15 Resp 18 07/30/19 08:00 BP 163/83 07/30/19 07:00 Pulse Ox 97 07/30/19 09:05 Intake & Output 07/29/19 07/30/19 07/30/19 18:59 06:59 18:59 Intake Total 350 Balance 350 Intake: Intake, IV Titration 350 Amount Cefepime 2 gm In Sodium 100 Chloride 0.9% 100 ml @ 200 mls/hr IVPB Q12H RUBIN Rx#:[id number] Vancomycin 750 mg In 250 Sodium Chloride 0.9% 250 ml @ 125 mls/hr IVPB Q10H RUBIN Rx#:[id number] Other: Voiding Method Bedside Commode Bedside Commode Bedside Commode # Voids 2 1 1 - Exam GENERAL EXAM: Alert, very pleasant, cachectic 79-year-old white female, on 3 L of oxygen with a pulse ox of 94%, comfortable in no apparent distress. HEAD: Normocephalic/atraumatic. EYES: Normal reaction of pupils, equal size. Conjunctiva pink, sclera white. NOSE: Clear with pink turbinates. THROAT: No erythema or exudates. NECK: No masses, no JVD, no thyroid enlargement, no adenopathy. CHEST: No chest wall deformity. Symmetrical expansion. LUNGS: Diminished air entry with inspiratory crackles at the right base, but no wheeze, rhonchi or dullness. CVS: Regular rate and rhythm, normal S1 and S2, no gallops, no murmurs, no rubs ABDOMEN: Soft, nontender. No hepatosplenomegaly, normal bowel sounds, no guarding or rigidity. EXTREMITIES: No clubbing, no edema, no cyanosis, 2+ pulses and upper and lower extremities. MUSCULOSKELETAL: Muscle strength and tone normal. SPINE: No scoliosis or deformity SKIN: No rashes CENTRAL NERVOUS SYSTEM: Alert and oriented -3. No focal deficits, tone is normal in all 4 extremities. PSYCHIATRIC: Alert and oriented -3. Appropriate affect. Intact judgment and insight. - Labs CBC & Chem 7: 07/26/19 07:42 07/30/19 05:18 Labs: Abnormal Lab Results - Last 24 Hours (Table) 07/29/19 07/29/19 07/30/19 Range/Units 16:50 19:57 07:39 POC Glucose (mg/dL) 216 H 108 H 114 H (75-99) mg/dL 07/30/19 Range/Units 11:39 POC Glucose (mg/dL) 106 H (75-99) mg/dL Assessment and Plan Plan: Assessment: 1 right lower lobe pneumonia, related to MRSA. Sputum culture showed MRSA and Cinthia albicans, and patient is currently on vancomycin and Diflucan. 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 We'll obtain follow-up chest x-ray in the morning, continue with IV steroids, continue cough syrup, we'll order breathing treatments. We'll continue to follow. I performed a history & physical examination of the patient and discussed their management with my nurse practitioner, Leni Zarco. I reviewed the nurse practitioner's note and agree with the documented findings and plan of care. Lung sounds are positive for right basilar crackles. The findings and the impression was discussed with the patient. I attest to the documentation by the nurse practitioner. Time with Patient: Less than 30
[2019-07-30] MEDS ORDERED: VANCOMYCIN TROUGH DUE 1 EACH MISC MISCELLANE ONE (15:00)
[2019-07-30 16:53] LABS: Glucose,Whole Blood 153 mg/dL (75-99)
[2019-07-30] MEDS ORDERED: guaiFENesin-DM 100-10MG/5ML 10 ML CUP PO PRN (19:33)
[2019-07-30] MEDS: SYMBICORT 160-4.5 MCG INHALER INHALATION SCH (19:35)
[2019-07-30 20:54] LABS: Glucose,Whole Blood 181 mg/dL (75-99)
[2019-07-31] MEDS: VANCOMYCIN 750 MG in SODIUM CHLORIDE 0.9% 250 ML IVPB SCH ×2 (05:31→17:51)
[2019-07-31 07:11] LABS: Glucose,Whole Blood 127 mg/dL (75-99)
[2019-07-31] MEDS: INSULIN ASPART (NovoLOG) 100 UNIT/ML VIAL SQ SCH ×4 (07:19→21:15)
[2019-07-31 08:03] LABS: HCT 38.9 % (34.0-46.0); HGB 12.5 gm/dL (11.4-16.0); MCH 29.9 pg (25.0-35.0); MCHC 32.1 g/dL (31.0-37.0); MCV 93.3 fL (80.0-100.0); Mean Platelet Volume 8.5; Platelet Count 388 k/uL (150-450); RBC 4.17 m/uL (3.80-5.40); RDW 14.4 % (11.5-15.5); WBC 31.6 k/uL (3.8-10.6)
[2019-07-31 08:17] LABS: African American GFR (CKD) >90 (>60 ml/min/1.73 sqM); Anion Gap 3 mmol/L; Blood Urea Nitrogen 30 mg/dL (7-17); Calcium 9.1 mg/dL (8.4-10.2); Carbon Dioxide 29 mmol/L (22-30); Chloride 103 mmol/L (98-107); Glucose 117 mg/dL (74-99); Non-African American GFR(CKD) 90 (>60 ml/min/1.73 sqM); Potassium 4.8 mmol/L (3.5-5.1); Sodium 135 mmol/L (137-145)
--- NOTE | 2019-07-31 08:22 | XR ---
EXAMINATION TYPE: XR chest 1V portable DATE OF EXAM: 07/31/2019 COMPARISON: 07/29/2019 INDICATION: Pneumonia TECHNIQUE: Single frontal view of the chest is obtained. FINDINGS: The heart size is normal. The pulmonary vasculature is normal. There is a consolidation within the right midlung. This is improving from comparison. Minimal bilater al pleural effusions are present. IMPRESSION: 1. Mild improvement of a right midlung consolidation. Follow-up to clearing is recommended. 2. Minimal bilateral pleural effusions.
[2019-07-31] MEDS: FLUCONAZOLE 100 MG TAB PO SCH (08:48)
[2019-07-31] MEDS: LOSARTAN 25 MG TAB PO SCH (08:48)
[2019-07-31] MEDS: methylPREDNISolone SOD SUCCI 40 MG/ML 1 ML VIAL IV SCH ×2 (08:48→21:14)
[2019-07-31] MEDS: HEPARIN SODIUM,PORCINE 5,000 UNIT/ML 1 ML VIAL SQ SCH ×4 (08:48→23:45)
[2019-07-31] MEDS: FAMOTIDINE 20 MG TAB PO SCH ×2 (08:48→21:14)
[2019-07-31] MEDS: IPRATROPIUM-ALBUTEROL 3 ML NEB INHALATION SCH ×4 (08:55→20:04)
[2019-07-31] MEDS: SYMBICORT 160-4.5 MCG INHALER INHALATION SCH ×2 (09:09→20:04)
--- NOTE | 2019-07-31 09:23 | P.PN ---
Subjective this is a pleasant 79 years old female with past medical history of COPD, pneumonia.she follows up with Dr. Wolfe.patient presents with progressive dyspnea associated with productive cough with green yellow phlegm. No chest pain. No fever. She is on home oxygen 3 nuclear via nasal cannula. No abdominal pain, no nausea vomiting, no change in urine or bowel habits. patient showing saturation of oxygen at 97% on 4 L oxygen via nasal cannula, patient is afebrile. on admission she has leukocytosis of 20.6 K, INR and results of CBC is unremark able. Liver enzymes not elevated, LDH is 768, C-reactive protein is 238 and ferritin is pending chest x-ray showing large masslike area of consolidation in the right mid lung zone EKG showing sinus tachycardia at 1 or [address]-T changes in the emergency room she was started on Rocephin and Zithromax, steroids and breathing treatment. Vancomycin is also added 07/24/2019 Patient still complaining of from dyspnea and coughing same as she came in. She is fully awake and oriented. No chest pain she saturating 96% on 4 L oxygen of the nasal cannula WBCs 16, rest of CBC and BMP is unremarkable. Patient is followed closely by pulmonary team. she remains on cefepime and vancomycin. Also she is on Solu-Medrol 40 mg twice daily. 07/25/2019 Patient is still significantly dyspneic and she could not finish talking to her sentences She is saturating 91-97% and 4 L oxygen of the nasal cannula. WBC 15.8 K, BMP is unremarkable. Gram stain showing few gram-positive cocci and rare gram- positive bacilli. Chest x-ray showing better orientation may be small right pleural effusion and reviewed by me. She remains on cefepime and vancomycin. 07/26/2019 Patient remains dyspneic and short of breath. Especially when she tries to talk. She remains on oxygen saturation of 4 L/m via nasal cannula and saturating at 90, rest of vitals are stable. WBC 15.8 K. BMP and glucose is un remarkable. Sputum culture is growing MRSA and cody. Patient is already on vancomycin and cefepime, we'll add Diflucan for a few days 07/27/2019 patient is awake and alert, she is improving slowly, she still dyspneic with coughing however she said that she is breathing more easily. She saturating 91% on 4 L oxygen. However she reports loose stool today, check for C. diff. No Abdominal pain or nausea vomiting. She is still on vancomycin for MRSA by pulmonary team who following the patient closely 07/28/2019 Patient is improving slowly however she still have some difficulty when talking. The scope is slightly better. She still has diarrhea but o'clock yesterday when it was running throughout the whole day compared today she has only 3 bowel movements since morning. Vitals are stable and remains unsedated to oxygen via nasal cannula. However she is less to keep it Creatinine 0.6 while she remains on IV vancomycin and cefepime Repeat chest x-ray looks improved when reviewed by me 07/29/2019 She's awake, breathing easier. She still can easier. Vitals stable, she still saturating high 90s on 3 L and then went down her oxygen level. Creatinine 0.4, sugar controlled She still needs to be on cefepime, vancomycin and some Medrol 40 mg 07/30/2019 Patient today for the first time states that she feels better and she is pleasant. She was able to walk around the room. However she still gets tired when she talks a little bit more. Oxygen saturation 97% on 3 L. Sugar controlled and creatinine 0.5 She remains on cefepime, vancomycin and Solu-Medrol 40 mg twice a day. 07/31/2019 Patient is less dyspneic. She still needs breathing treatments. Oxygen saturation is 97% on 32 after oxygenated via nasal cannula. She is hemodynamically stable. WBC is up today to 30 1.6K however she is on steroids. Creatinine is normal at 0.5. She remains on vancomycin for MRSA in sputum culture secondary to right mid lung pneumonia chest x-ray this morning showing only mild improvement of right lung consolidation We will keep following with the patient Objective - Vital Signs Vital signs: Vital Signs Temp 98.1 F 07/31/19 07:00 Pulse 74 07/31/19 08:55 Resp 18 07/31/19 07:00 BP 164/81 07/31/19 07:00 Pulse Ox 97 07/31/19 07:00 Intake & Output 07/30/19 07/31/19 07/31/19 18:59 06:59 18:59 Other: Voiding Method Bedside Commode Bedside Commode # Voids 3 0 1 # Bowel Movements 2 0 1 - Exam GENERAL: The patient is alert and oriented x3, not in any acute distress. Well developed, well nourished. HEENT: Pupils are round and equally reacting to light. EOMI. No scleral icterus. No conjunctival pallor. Normocephalic, atraumatic. No pharyngeal erythema. No thyromegaly. CARDIOVASCULAR: S1 and S2 present. No murmurs, rubs, or gallops. -PULMONARY: Chest is clear to auscultation, decreased breath sounds on the right lung with scattered wheezing ABDOMEN: Soft, nontender, nondistended, normoactive bowel sounds. No palpable organomegaly. MUSCULOSKELETAL: No joint swelling or deformity. EXTREMITIES: No cyanosis, clubbing, or pedal edema. NEUROLOGICAL: Gross neurological examination did not reveal any focal deficits. SKIN: No rashes. No petechiae - Labs CBC & Chem 7: 07/31/19 07:40 07/31/19 07:40 Labs: Abnormal Lab Results - Last 24 Hours (Table) 07/30/19 07/30/19 07/30/19 Range/Units 11:39 16:51 20:52 WBC (3.8-10.6) k/uL Sodium (137-145) mmol/L BUN (7-17) mg/dL Glucose (74-99) mg/dL POC Glucose (mg/dL) 106 H 153 H 181 H (75-99) mg/dL 07/31/19 07/31/19 07/31/19 Range/Units 07:10 07:40 07:40 WBC 31.6 H (3.8-10.6) k/uL Sodium 135 L (137-145) mmol/L BUN 30 H (7-17) mg/dL Glucose 117 H (74-99) mg/dL POC Glucose (mg/dL) 127 H (75-99) mg/dL Assessment and Plan Assessment: masslike area of consolidation in the right mid lung zone, suspicious for right pneumonia. Cannot exclude cancer Acute COPD exacerbation hypertension Sinusitis Plan: this is a pleasant 79 years old female who presents with pneumonia and right lung mass like consolidation. COPD. Continue with antibiotic, follow-up sputum culture, continuewith steroids.pulmonary consult Labs and medication were reviewed.. Continue same treatment. Continue with symptomatic treatment. Resume home medication. Monitor lytes and vitals. DVT and GI prophylaxis. Further recommendations of the clinical course of the patient DVT prophylaxis: Subcutaneous heparin GI Prophylaxis: Pepcid PT/OT: Pending Prognosis is guarded
[2019-07-31 11:29] LABS: Glucose,Whole Blood 106 mg/dL (75-99)
--- NOTE | 2019-07-31 12:38 | P.PN ---
Subjective Progress Note Date: 07/31/19 Principal diagnosis: Right lower lobe pneumonia, likely hospital acquired pathogen related This is a 79-year-old male patient with known history of severe oxygen-dependent COPD who presented to the emergency department last month and the patient was seen in consult by our service. The patient at that time she was having shortness of breath and she was diagnosed having COPD exacerbation and she was treated on outpatient basis with a combination of antibiotics and steroids and she was discharged home. She was having tracheal bronchitis. She was given IV antibiotics. She was given about treatments per she was given IV steroids. She did improve. She tested negative for the rao virus. At the time of discharge she was on 4 L of oxygen by nasal cannula and pulse ox is above 90% pH she typically uses 3 L of oxygen at home. At a time of discharge, she was asked to continue Anoro Ellipta in addition Symbicort maintenance in addition to to Ventolin rescue inhaler and DuoNeb nebulized treatments around the clock. The patient was also asked to take guaifenesin 600 mg every 12 hours on a when necessary basis. A CAT scan of the chest from 2019 showed moderate hyp erinflation compatible with COPD with moderate upper lobe emphysematous change and parenchymal scarring in the right upper lobe. No evidence of any lung masses or tumors. The patient came in back to the emergency department on 07/22/2019 complaining of worsening shortness of breath. She was doing her breathing treatments frequently without much help. No fever. No chills. She did have a congested cough. The chest x-ray during the current admission showed an extensive right lower lobe pneumonia compared to the previous chest x-ray this was a new finding. The patient also has underlying COPD. No evidence of any heart failure. The patient was given Zithromax and admitted to the floor. The white cell count is 20.6. Troponin is less than 0.01. ProBNP level is 317. Lactic acid level is at 1.8. Covid 19 analysis still pending for now. On today's evaluation of 07/25/2019, I'm seeing this patient for a follow-up. She still is having difficulty breathing. She has a congested cough. Unable to bring up the sputum. A repeat chest x-ray was done and showed a involving the right midlung area. There is as bases also in the right lower lobe without any significant change compared to the previous chest x-ray from yesterday. This is obviously new onset consolidation and hospital-acquired pathogens need to be expected. I added cefepime. I'm going to add vancomycin also. The white cell count of 20.6. The patient is afebrile. The patient on 4 L about 2 by nasal cannula with a pulse ox of 97%. On 07/24/2019 patient seen in follow-up on the general medical floor, she is dyspneic with conversation, and with any exertion, but no acute distress, she remains on 4 L of oxygen the pulse ox of 96%, she is afebrile, hemodynamically patient is stable. Lung sounds reveal coarse inspiratory crackles at the right base, diminished breath sounds overall, she is on combination of cefepime and vancomycin, she states. Sample has been sent, and is pending at this time, today's labs have been reviewed leukocytosis is improving, white blood cell count is 16.0, hemoglobin of 11.2,, electrolytes are within normal limits, B1 is 37 creatinine 0.57, rao virus PCR test was negative. Pro-calcitonin level was elevated at 3.55 consistent with possibility of bacterial pneumonia On 07/30/2019 patient is seen in follow-up on general medical floor. Still quiets significantly dyspneic with any conversation or any exertion, but appears to be in no acute distress, she is on 3 L of oxygen a pulse ox of 97%, patient is afebrile, her sputum culture revealed MRSA and Cinthia albicans, and patient is currently on combination of vancomycin and Diflucan, she is on IV steroids and Mucinex. No new chest x-ray today, yesterday's chest x-ray showed persistence of right lung pneumonia though showing some limited improvement. Her pro-calcitonin continues to trend down, and is down to 0.12 on yesterday's labs. Patient has had no fever or chills. On 07/31/2019 patient seen in follow-up on the general medical floor, she is awake and alert, in no acute distress, she is on 3 L of oxygen per pulse ox is 99%, hemodynamically stable, she is afebrile, she is on vancomycin and Diflucan for MRSA and Cinthia albicans in her sputum. Today's chest x-ray has been reviewed showing improvement in the appearance of the right lung pneumonia. And patient has minimal bilateral pleural effusions. No altered mentation, no fever or chills. Today's labs have been reviewed showing white blood cell, 31.6, hemoglobin of 12.5, serum sodium of 135, potassium is 4.8, chloride is 103, CO2 is 29, B1 is 30 creatinine 0.56. Pro-calcitonin is improving, and is down to 0.12 on 07/29/2019 Objective - Vital Signs Vital signs: Vital Signs Temp 98.6 F 07/31/19 11:00 Pulse 68 07/31/19 11:40 Resp 22 07/31/19 11:00 BP 156/77 07/31/19 11:00 Pulse Ox 99 07/31/19 11:00 Intake & Output 07/30/19 07/31/19 07/31/19 18:59 06:59 18:59 Other: Voiding Method Bedside Commode Bedside Commode Bedside Commode # Voids 3 0 1 # Bowel Movements 2 0 1 - Exam GENERAL EXAM: Alert, very pleasant, cachectic 79-year-old white female, on 3 L of oxygen with a pulse ox of 99%, comfortable in no apparent distress. HEAD: Normocephalic/atraumatic. EYES: Normal reaction of pupils, equal size. Conjunctiva pink, sclera white. NOSE: Clear with pink turbinates. THROAT: No erythema or exudates. NECK: No masses, no JVD, no thyroid enlargement, no adenopathy. CHEST: No chest wall deformity. Symmetrical expansion. LUNGS: Diminished air entry with inspiratory crackles at the right base, but no wheeze, rhonchi or dullness. CVS: Regular rate and rhythm, normal S1 and S2, no gallops, no murmurs, no rubs ABDOMEN: Soft, nontender. No hepatosplenomegaly, normal bowel sounds, no guarding or rigidity. EXTREMITIES: No clubbing, no edema, no cyanosis, 2+ pulses and upper and lower extremities. MUSCULOSKELETAL: Muscle strength and tone normal. SPINE: No scoliosis or deformity SKIN: No rashes CENTRAL NERVOUS SYSTEM: Alert and oriented -3. No focal deficits, tone is normal in all 4 extremities. PSYCHIATRIC: Alert and oriented -3. Appropriate affect. Intact judgment and insight. - Labs CBC & Chem 7: 07/31/19 07:40 07/31/19 07:40 Labs: Abnormal Lab Results - Last 24 Hours (Table) 07/30/19 07/30/19 07/31/19 Range/Units 16:51 20:52 07:10 WBC (3.8-10.6) k/uL Sodium (137-145) mmol/L BUN (7-17) mg/dL Glucose (74-99) mg/dL POC Glucose (mg/dL) 153 H 181 H 127 H (75-99) mg/dL 07/31/19 07/31/19 07/31/19 Range/Units 07:40 07:40 11:28 WBC 31.6 H (3.8-10.6) k/uL Sodium 135 L (137-145) mmol/L BUN 30 H (7-17) mg/dL Glucose 117 H (74-99) mg/dL POC Glucose (mg/dL) 106 H (75-99) mg/dL Assessment and Plan Plan: Assessment: 1 right lower lobe pneumonia, related to MRSA. Sputum culture showed MRSA and Cinthia albicans, and patient is currently on vancomycin and Diflucan. 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 We'll continue with steroids, breathing treatments, follow-up chest x-ray in the morning I performed a history & physical examination of the patient and discussed their management with my nurse practitioner, Leni Zarco. I reviewed the nurse practitioner's note and agree with the documented findings and plan of care. Lung sounds are positive for right basilar crackles. The findings and the impression was discussed with the patient. I attest to the documentation by the nurse practitioner. Time with Patient: Less than 30
[2019-07-31 13:36] LABS: Band Neutrophils % 2 %; Lymphocytes # (M) 0.95 k/uL (1.0-4.8); Metamyelocytes # (M) 1.26 k/uL (0); Metamyelocytes % 4 %; Monocytes # (M) 0.95 k/uL (0-1.0); Myelocytes # (M) 1.58 k/uL (0); Myelocytes % 5 %; Neutrophils % (M) 85 %; Nucleated Red Blood Cells 0 /100 WBC (0-0); Total Cells Counted 200
[2019-07-31 17:18] LABS: Glucose,Whole Blood 172 mg/dL (75-99)
[2019-07-31 20:39] LABS: Glucose,Whole Blood 175 mg/dL (75-99)
[2019-08-01] MEDS ORDERED: VANCOMYCIN TROUGH DUE 1 EACH MISC MISCELLANE ONE (05:00)
[2019-08-01] MEDS: VANCOMYCIN 750 MG in SODIUM CHLORIDE 0.9% 250 ML IVPB SCH ×2 (06:04→18:11)
[2019-08-01 07:21] LABS: Glucose,Whole Blood 118 mg/dL (75-99)
[2019-08-01] MEDS: INSULIN ASPART (NovoLOG) 100 UNIT/ML VIAL SQ SCH ×4 (07:33→20:52)
--- NOTE | 2019-08-01 07:34 | XR ---
EXAMINATION TYPE: XR chest 1V portable DATE OF EXAM: 08/01/2019 COMPARISON: 07/31/2019 HISTORY: Shortness of breath. MRSA pneumonia. TECHNIQUE: Single frontal view of the chest is obtained. FINDINGS: Pulmonary hyperinflation of underlying COPD with diffuse chronic interstitial prominence. Right midlung consolidation compatible with the known pneumonia does have a cavitary component with a ir-fluid level. Diffuse osseous demineralization is seen. Cardiomediastinal silhouette is stable. Jnuito nting of the costophrenic angles likely relates to COPD and chronic scarring rather than pleural effu sions. No sizable pneumothorax. IMPRESSION: Similar right midlung cavitary pneumonia. Background COPD and chronic interstitial martinez e.
[2019-08-01 07:46] LABS: African American GFR (CKD) >90 (>60 ml/min/1.73 sqM); Anion Gap 3 mmol/L; Blood Urea Nitrogen 28 mg/dL (7-17); Calcium 8.7 mg/dL (8.4-10.2); Carbon Dioxide 28 mmol/L (22-30); Chloride 102 mmol/L (98-107); Glucose 115 mg/dL (74-99); Non-African American GFR(CKD) >90 (>60 ml/min/1.73 sqM); Potassium 4.6 mmol/L (3.5-5.1); Sodium 133 mmol/L (137-145)
[2019-08-01] MEDS: methylPREDNISolone SOD SUCCI 40 MG/ML 1 ML VIAL IV SCH ×2 (08:46→20:53)
[2019-08-01] MEDS: FAMOTIDINE 20 MG TAB PO SCH ×2 (08:46→20:53)
[2019-08-01] MEDS: LOSARTAN 25 MG TAB PO SCH (08:46)
[2019-08-01] MEDS: HEPARIN SODIUM,PORCINE 5,000 UNIT/ML 1 ML VIAL SQ SCH ×2 (08:46→18:12)
[2019-08-01] MEDS: IPRATROPIUM-ALBUTEROL 3 ML NEB INHALATION SCH ×3 (08:49→20:36)
[2019-08-01] MEDS: SYMBICORT 160-4.5 MCG INHALER INHALATION SCH ×2 (08:50→20:35)
[2019-08-01 11:31] LABS: Basophils # (A) 0.4 k/uL (0-0.2); Basophils % (A) 1 %; Eosinophils # (A) 0.1 k/uL (0-0.7); Eosinophils % (A) 0 %; HCT 40.6 % (34.0-46.0); Hypochromasia Marked; Lymphocytes # (A) 0.3 k/uL (1.0-4.8); Lymphocytes % (A) 1 %; MCH 29.2 pg (25.0-35.0); MCHC 29.5 g/dL (31.0-37.0); Macrocytosis Slight; Monocytes % (A) 3 %; Neutrophils # (A) 27.8 k/uL (1.3-7.7); Neutrophils % (A) 94 %; Platelet Count 401 k/uL (150-450); RBC 4.09 m/uL (3.80-5.40); RDW 14.5 % (11.5-15.5); WBC 29.6 k/uL (3.8-10.6)
[2019-08-01 11:32] LABS: MCV 99.1 fL (80.0-100.0)
[2019-08-01 12:13] LABS: Glucose,Whole Blood 115 mg/dL (75-99)
--- NOTE | 2019-08-01 12:19 | P.PN ---
Subjective Progress Note Date: 08/01/19 Principal diagnosis: Right lower lobe pneumonia, hospital-acquired This is a 79-year-old female patient with known history of severe oxygen- dependent COPD who presented to the emergency department last month and the patient was seen in consult by our service. The patient at that time she was having shortness of breath and she was diagnosed having COPD exacerbation and she was treated on outpatient basis with a combination of antibiotics and steroids and she was discharged home. She was having tracheal bronchitis. She was given IV antibiotics. She was given about treatments per she was given IV steroids. She did improve. She tested negative for the rao virus. At the time of discharge she was on 4 L of oxygen by nasal cannula and pulse ox is above 90% pH she typically uses 3 L of oxygen at home. At a time of discharge, she was asked to continue Anoro Ellipta in addition Symbicort maintenance in addition to to Ventolin rescue inhaler and DuoNeb nebulized treatments around the clock. The patient was also asked to take guaifenesin 600 mg every 12 hours on a when necessary basis. A CAT scan of the chest from 2018 showed moderate hyperinflation compatible with COPD with moderate upper lobe emphysematous change and parenchymal scarring in the right upper lobe. No evidence of any lung masses or tumors. The patient came in back to the emergency department on 07/22/2019 complaining of worsening shortness of breath. She was doing her breathing treatments frequently without much help. No fever. No chills. She did have a congested cough. The chest x-ray during the current admission showed an extensive right lower lobe pneumonia compared to the previous chest x-ray this was a new finding. The patient also has underlying COPD. No evidence of any heart failure. The patient was given Zithromax and admitted to the floor. The white cell count is 20.6. Troponin is less than 0.01. ProBNP level is 317. Lactic acid level is at 1.8. Covid 19 analysis still pending for now. On today's evaluation of 07/25/2019, I'm seeing this patient for a follow-up. She still is having difficulty breathing. She has a congested cough. Unable to bring up the sputum. A repeat chest x-ray was done and showed a involving the right midlung area. There is as bases also in the right lower lobe without any significant change compared to the previous chest x-ray from yesterday. This is obviously new onset consolidation and hospital-acquired pathogens need to be expected. I added cefepime. I'm going to add vancomycin also. The white cell count of 20.6. The patient is afebrile. The patient on 4 L about 2 by nasal cannula with a pulse ox of 97%. On 07/24/2019 patient seen in follow-up on the general medical floor, she is dyspneic with conversation, and with any exertion, but no acute distress, she remains on 4 L of oxygen the pulse ox of 96%, she is afebrile, hemodynamically patient is stable. Lung sounds reveal coarse inspiratory crackles at the right base, diminished breath sounds overall, she is on combination of cefepime and vancomycin, she states. Sample has been sent, and is pending at this time, today's labs have been reviewed leukocytosis is improving, white blood cell count is 16.0, hemoglobin of 11.2,, electrolytes are within normal limits, B1 is 37 creatinine 0.57, rao virus PCR test was negative. Pro-calcitonin level was elevated at 3.55 consistent with possibility of bacterial pneumonia. The patient is seen today 07/25/2019 in follow-up on the regular medical floor. She is currently resting fairly comfortably in bed. Still dyspneic with minimal conversation and minimal exertion. She is maintaining O2 saturations in the 90s on 4 L/m per nasal cannula. Sputum culture pending. Blood cultures revealing no growth to date. White count 15.8. Hemoglobin 11.8. Sodium 138. Potassium 4.5. Creatinine 0.66. She is currently on vancomycin and cefepime. Remains on bronchodilators, IV Solu-Medrol, Mucinex. The patient is seen today 07/26/2019 in follow-up on the regular medical floor. She is awake and alert in no acute distress. She remains quite dyspneic on minimal conversation and minimal exertion. She is still producing thick greenish yellow sputum. Sputum culture positive for MRSA and Cinthia blood culture shows no growth. White count 15.8. Hemoglobin 11.9. Sodium 139. Potassium 4.7. Creatinine 0.61. She is currently on vancomycin and cefepime along with IV Solu-Medrol, bronchodilators and Mucinex. The patient is seen today 07/27/2019 in follow-up on the regular medical floor. She is currently resting comfortably in bed. A bit less short of breath today compared to yesterday. Still with a loose productive cough. No fever chills. She is maintaining O2 saturations in the 90s on 4 L/m per nasal cannula. She's been afebrile. Sputum is causative for MRSA. Continued on vancomycin. Trough 24.0. Remains on bronchodilators and IV Solu-Medrol. On oral Diflucan. The patient is seen today 07/28/2019 in follow-up on the regular medical floor. She is awake and alert in no acute distress. Resting comfortably in bed. Continues to improve from the pulmonary standpoint. Maintaining O2 saturations in the 90s on 3 L/m per nasal cannula. She is afebrile. Chest x-ray continues to show right-sided pneumonia superimposed upon COPD. Slightly improved compared to admitting chest x-ray. Sputum was positive for MRSA and Cinthia. Blood cultures reveal no growth. Creatinine 0.61. Glucose 165. She is maintained on cefepime and vancomycin. Remains on bronchodilators, IV Solu- Medrol, Mucinex. The patient is seen today 07/29/2019 in follow-up on the regular medical floor. She is currently resting comfortably in bed. Awake and alert in no acute distress. Breathing a bit easier today compared to yesterday. She is maintaining O2 saturations in the 90s on 3 L/m per nasal cannula. She's been afebrile. Hemodynamically stable. Sputum culture was positive for MRSA and Cinthia. Creatinine 0.47. She is continued on vancomycin and cefepime. Follow-up chest x-ray reveals improving right mid lung consolidation, improved right lower lobe infiltrate. Small bilateral effusions remain. On 07/30/2019 patient is seen in follow-up on general medical floor. Still quiets significantly dyspneic with any conversation or any exertion, but appears to be in no acute distress, she is on 3 L of oxygen a pulse ox of 97%, patient is afebrile, her sputum culture revealed MRSA and Cintiha albicans, and patient is currently on combination of vancomycin and Diflucan, she is on IV steroids and Mucinex. No new chest x-ray today, yesterday's chest x-ray showed pers istence of right lung pneumonia though showing some limited improvement. Her pro-calcitonin continues to trend down, and is down to 0.12 on yesterday's labs. Patient has had no fever or chills. On 07/31/2019 patient seen in follow-up on the general medical floor, she is awake and alert, in no acute distress, she is on 3 L of oxygen per pulse ox is 99%, hemodynamically stable, she is afebrile, she is on vancomycin and Diflucan for MRSA and Cinthia albicans in her sputum. Today's chest x-ray has been reviewed showing improvement in the appearance of the right lung pneumonia. And patient has minimal bilateral pleural effusions. No altered mentation, no fever or chills. Today's labs have been reviewed showing white blood cell, 31.6, hemoglobin of 12.5, serum sodium of 135, potassium is 4.8, chloride is 103, CO2 is 29, B1 is 30 creatinine 0.56. Pro-calcitonin is improving, and is down to 0.12 on 07/29/2019. The patient is seen today 08/01/2019 in follow-up on the regular medical floor. She is awake and alert in no acute distress. She is currently sitting up at the bedside. Denies any worsening shortness of breath, cough or congestion. Her pulmonary status is improved. Continued on oxygen at 3 L/m per nasal cannula. Afebrile. Sputum culture was positive for MRSA and Cinthia. White count 29.6. Hemoglobin 12.0. Sodium 133. Potassium 4.6. Creatinine 0.49. She is co ntinued on DuoNeb inhalations, Symbicort, IV Solu-Medrol. Antibiotics in the form of vancomycin. Objective - Vital Signs Vital signs: Vital Signs Temp 98.3 F 08/01/19 07:00 Pulse 58 L 08/01/19 09:03 Resp 18 08/01/19 07:34 BP 156/79 08/01/19 07:00 Pulse Ox 98 08/01/19 07:00 Intake & Output 07/31/19 08/01/19 08/01/19 18:59 06:59 18:59 Intake Total 650 Balance 650 Weight 46.72 kg Intake: Intake, IV Titration 250 Amount Vancomycin 750 mg In 250 Sodium Chloride 0.9% 250 ml @ 125 mls/hr IVPB Q10H [facility] Rx#:[id number] Oral 400 Other: Voiding Method Bedside Commode Bedside Commode Bedside Commode # Voids 1 1 1 # Bowel Movements 1 - Exam GENERAL EXAM: Alert, very pleasant, cachectic 79-year-old female patient, on 3 L of oxygen with a pulse ox of 98%, comfortable in no apparent distress. HEAD: Normocephalic/atraumatic. EYES: Normal reaction of pupils, equal size. Conjunctiva pink, sclera white. NOSE: Clear with pink turbinates. THROAT: No erythema or exudates. NECK: No masses, no JVD, no thyroid enlargement, no adenopathy. CHEST: No chest wall deformity. Symmetrical expansion. LUNGS: Diminished air entry with inspiratory crackles at the right base, but no wheeze, rhonchi or dullness. CVS: Regular rate and rhythm, normal S1 and S2, no gallops, no murmurs, no rubs ABDOMEN: Soft, nontender. No hepatosplenomegaly, normal bowel sounds, no guarding or rigidity. EXTREMITIES: No clubbing, no edema, no cyanosis, 2+ pulses and upper and lower extremities. MUSCULOSKELETAL: Muscle strength and tone normal. SPINE: No scoliosis or deformity SKIN: No rashes CENTRAL NERVOUS SYSTEM: No focal deficits, tone is normal in all 4 extremities. PSYCHIATRIC: Alert and oriented -3. Appropriate affect. Intact judgment and insight. - Labs CBC & Chem 7: 08/01/19 07:16 08/01/19 07:16 Labs: Abnormal Lab Results - Last 24 Hours (Table) 07/31/19 07/31/19 07/31/19 Range/Units 07:40 17:15 20:37 WBC (3.8-10.6) k/uL MCHC (31.0-37.0) g/dL Neutrophils # (1.3-7.7) k/uL Neutrophils # (Manual) 27.40 H (1.3-7.7) k/uL Lymphocytes # (1.0-4.8) k/uL Lymphocytes # (Manual) 0.95 L (1.0-4.8) k/uL Basophils # (0-0.2) k/uL Metamyelocytes # (Man) 1.26 H (0) k/uL Myelocytes # (Manual) 1.58 H (0) k/uL Sodium (137-145) mmol/L BUN (7-17) mg/dL Creatinine (0.52-1.04) mg/dL Glucose (74-99) mg/dL POC Glucose (mg/dL) 172 H 175 H (75-99) mg/dL 08/01/19 08/01/19 08/01/19 Range/Units 07:14 07:16 07:16 WBC 29.6 H (3.8-10.6) k/uL MCHC 29.5 L (31.0-37.0) g/dL Neutrophils # 27.8 H (1.3-7.7) k/uL Neutrophils # (Manual) (1.3-7.7) k/uL Lymphocytes # 0.3 L (1.0-4.8) k/uL Lymphocytes # (Manual) (1.0-4.8) k/uL Basophils # 0.4 H (0-0.2) k/uL Metamyelocytes # (Man) (0) k/uL Myelocytes # (Manual) (0) k/uL Sodium 133 L (137-145) mmol/L BUN 28 H (7-17) mg/dL Creatinine 0.49 L (0.52-1.04) mg/dL Glucose 115 H (74-99) mg/dL POC Glucose (mg/dL) 118 H (75-99) mg/dL 08/01/19 Range/Units 12:11 WBC (3.8-10.6) k/uL MCHC (31.0-37.0) g/dL Neutrophils # (1.3-7.7) k/uL Neutrophils # (Manual) (1.3-7.7) k/uL Lymphocytes # (1.0-4.8) k/uL Lymphocytes # (Manual) (1.0-4.8) k/uL Basophils # (0-0.2) k/uL Metamyelocytes # (Man) (0) k/uL Myelocytes # (Manual) (0) k/uL Sodium (137-145) mmol/L BUN (7-17) mg/dL Creatinine (0.52-1.04) mg/dL Glucose (74-99) mg/dL POC Glucose (mg/dL) 115 H (75-99) mg/dL Assessment and Plan Assessment: 1 right lower lobe pneumonia, secondary to MRSA and Cinthia and the patient was hospitalized recently in June 2019 for COPD exacerbation 2 acute COPD exacerbation secondary to above 3 shortness of breath secondary to above 4 advanced COPD with chronic hypoxic respiratory failure admitted on oxygen at 3 L and the patient has an FEV1 of 49% of predicted at baseline and the patient h as been maintained on a combination of Symbicort and Anoro in addition to albuterol and Ventolin rescue inhaler on as needed basis 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 Linda She is cleared for discharge from the pulmonary standpoint Complete course of antibiotics, possibly in the form of Bactrim Complete prednisone taper starting at 40 mg for 4 days Follow-up in our office in 1 week I, the cosigning physician, performed a history & physical examination of the patient. Lungs sounds with inspiratory crackles of the right lung, diminished. Maintaining good O2 saturations in the 90s on 3 L/m per nasal cannula. I discussed the assessment and plan of care with my nurse practitioner, Darlene Underwood. I attest to the above note as dictated by her.
[2019-08-01 17:29] LABS: Glucose,Whole Blood 146 mg/dL (75-99)
--- NOTE | 2019-08-01 19:41 | CT ---
EXAMINATION TYPE: CT chest wo con DATE OF EXAM: 08/01/2019 COMPARISON: CT chest dated 07/17/2018 and chest x-ray dated 08/01/2019 HISTORY: SOB, MRSA pneumonia CT DLP: 162.7 mGycm. Automated Exposure Control for Dose Reduction was Utilized. TECHNIQUE: CT scan of the thorax is performed without IV contrast. FINDINGS: LUNGS: There is a confluent opacity in the right lower lobe with cavitary component as seen on rao l image 70. The cavitary component is inseparable from the surrounding consolidation and therefore ev aluation for thin or thick wall is limited. Cystic spaces are seen at the cranial margin such as on i mage 25. Finding is new from the prior 2019. Extensive emphysematous changes of the lungs are present . There is biapical pleural parenchymal scarring, right greater than left. Chronic scarring is seen o f the right upper lobe on image 15 with possible hyperdense surgical sutures versus calcifications wi thin the peripheral right lung apex on image 11. There are trace bilateral pleural effusions. No pneumothorax seen. MEDIASTINUM: Lack of IV contrast is noted to limit evaluation for mediastinal and especially hilar ad enopathy. There are no definitive greater than 1 cm hilar or mediastinal lymph nodes. No cardiomega ly or pericardial effusion is seen. Moderate to severe coronary artery calcifications. There is tortu osity of the descending thoracic aorta. OTHER: Dense breast tissue is seen limiting evaluation of the breasts. Partial visualization of right -sided hydronephrosis. There is an exaggerated thoracic kyphosis and moderate degenerative change of the spine with diffuse osseous demineralization. IMPRESSION: 1. Right upper lobe consolidation with cavitary component anteriorly that has ill-defined borders in keeping with this patient's history of MRSA pneumonia. Follow-up to resolution is recommended to excl ude underlying mass. 2. Partial visualization of right-sided hydronephrosis. Renal ultrasound is recommended. 3. Extensive emphysematous changes of the lungs.
[2019-08-01 20:31] LABS: Glucose,Whole Blood 132 mg/dL (75-99)
[2019-08-02] MEDS: HEPARIN SODIUM,PORCINE 5,000 UNIT/ML 1 ML VIAL SQ SCH ×3 (00:45→15:59)
[2019-08-02] MEDS ORDERED: VANCOMYCIN TROUGH DUE 1 EACH MISC MISCELLANE ONE (05:00)
[2019-08-02 06:17] LABS: African American GFR (CKD) >90 (>60 ml/min/1.73 sqM); Anion Gap 5 mmol/L; Blood Urea Nitrogen 30 mg/dL (7-17); Calcium 8.8 mg/dL (8.4-10.2); Carbon Dioxide 28 mmol/L (22-30); Chloride 99 mmol/L (98-107); Glucose 132 mg/dL (74-99); Non-African American GFR(CKD) >90 (>60 ml/min/1.73 sqM); Potassium 4.6 mmol/L (3.5-5.1); Sodium 132 mmol/L (137-145)
[2019-08-02] MEDS: VANCOMYCIN 750 MG in SODIUM CHLORIDE 0.9% 250 ML IVPB SCH (06:26)
[2019-08-02 07:04] LABS: Glucose,Whole Blood 127 mg/dL (75-99)
--- NOTE | 2019-08-02 07:16 | P.PN ---
Subjective this is a pleasant 79 years old female with past medical history of COPD, pneumonia.she follows up with Dr. Wolfe.patient presents with progressive dyspnea associated with productive cough with green yellow phlegm. No chest pain. No fever. She is on home oxygen 3 nuclear via nasal cannula. No abdominal pain, no nausea vomiting, no change in urine or bowel habits. patient showing saturation of oxygen at 97% on 4 L oxygen via nasal cannula, patient is afebrile. on admission she has leukocytosis of 20.6 K, INR and results of CBC is unremark able. Liver enzymes not elevated, LDH is 768, C-reactive protein is 238 and ferritin is pending chest x-ray showing large masslike area of consolidation in the right mid lung zone EKG showing sinus tachycardia at 1 or [address]-T changes in the emergency room she was started on Rocephin and Zithromax, steroids and breathing treatment. Vancomycin is also added 07/24/2019 Patient still complaining of from dyspnea and coughing same as she came in. She is fully awake and oriented. No chest pain she saturating 96% on 4 L oxygen of the nasal cannula WBCs 16, rest of CBC and BMP is unremarkable. Patient is followed closely by pulmonary team. she remains on cefepime and vancomycin. Also she is on Solu-Medrol 40 mg twice daily. 07/25/2019 Patient is still significantly dyspneic and she could not finish talking to her sentences She is saturating 91-97% and 4 L oxygen of the nasal cannula. WBC 15.8 K, BMP is unremarkable. Gram stain showing few gram-positive cocci and rare gram- positive bacilli. Chest x-ray showing better orientation may be small right pleural effusion and reviewed by me. She remains on cefepime and vancomycin. 07/26/2019 Patient remains dyspneic and short of breath. Especially when she tries to talk. She remains on oxygen saturation of 4 L/m via nasal cannula and saturating at 90, rest of vitals are stable. WBC 15.8 K. BMP and glucose is un remarkable. Sputum culture is growing MRSA and cody. Patient is already on vancomycin and cefepime, we'll add Diflucan for a few days 07/27/2019 patient is awake and alert, she is improving slowly, she still dyspneic with coughing however she said that she is breathing more easily. She saturating 91% on 4 L oxygen. However she reports loose stool today, check for C. diff. No Abdominal pain or nausea vomiting. She is still on vancomycin for MRSA by pulmonary team who following the patient closely 07/28/2019 Patient is improving slowly however she still have some difficulty when talking. The scope is slightly better. She still has diarrhea but o'clock yesterday when it was running throughout the whole day compared today she has only 3 bowel movements since morning. Vitals are stable and remains unsedated to oxygen via nasal cannula. However she is less to keep it Creatinine 0.6 while she remains on IV vancomycin and cefepime Repeat chest x-ray looks improved when reviewed by me 07/29/2019 She's awake, breathing easier. She still can easier. Vitals stable, she still saturating high 90s on 3 L and then went down her oxygen level. Creatinine 0.4, sugar controlled She still needs to be on cefepime, vancomycin and some Medrol 40 mg 07/30/2019 Patient today for the first time states that she feels better and she is pleasant. She was able to walk around the room. However she still gets tired when she talks a little bit more. Oxygen saturation 97% on 3 L. Sugar controlled and creatinine 0.5 She remains on cefepime, vancomycin and Solu-Medrol 40 mg twice a day. 07/31/2019 Patient is less dyspneic. She still needs breathing treatments. Oxygen saturation is 97% on 32 after oxygenated via nasal cannula. She is hemodynamically stable. WBC is up today to 30 1.6K however she is on steroids. Creatinine is normal at 0.5. She remains on vancomycin for MRSA in sputum culture secondary to right mid lung pneumonia chest x-ray this morning showing only mild improvement of right lung consolidation We will keep following with the patient 08/01/2019 Patient is breathing better, she is saturating 90s percent on 3 L oxygen via nasal cannula. Respiratory vitals are stable She has increasing WBC 29.6K although pt is on steroids effect also, her chest x-ray showing right mid lung consolidation compatible with pneumonia with a component of air-fluid level, we will do a CT of the chest rule out abscess otherwise she is clear for discharge from pulmonary team with follow-up appointments is set on 08/12 Objective - Vital Signs Vital signs: Vital Signs Temp 98.1 F 08/01/19 15:00 Pulse 70 08/01/19 16:00 Resp 18 08/01/19 16:00 BP 128/67 08/01/19 15:00 Pulse Ox 94 L 08/01/19 15:00 Intake & Output 07/31/19 08/01/19 08/01/19 18:59 06:59 18:59 Intake Total 650 Balance 650 Weight 46.72 kg Intake: Intake, IV Titration 250 Amount Vancomycin 750 mg In 250 Sodium Chloride 0.9% 250 ml @ 125 mls/hr IVPB Q10H [facility] Rx#:[id number] Oral 400 Other: Voiding Method Bedside Commode Bedside Commode Bedside Commode # Voids 1 1 1 # Bowel Movements 1 - Exam GENERAL: The patient is alert and oriented x3, not in any acute distress. Well developed, well nourished. HEENT: Pupils are round and equally reacting to light. EOMI. No scleral icterus. No conjunctival pallor. Normocephalic, atraumatic. No pharyngeal erythema. No thyromegaly. CARDIOVASCULAR: S1 and S2 present. No murmurs, rubs, or gallops. -PULMONARY: Chest is clear to auscultation, decreased breath sounds on the right lung with scattered wheezing ABDOMEN: Soft, nontender, nondistended, normoactive bowel sounds. No palpable organomegaly. MUSCULOSKELETAL: No joint swelling or deformity. EXTREMITIES: No cyanosis, clubbing, or pedal edema. NEUROLOGICAL: Gross neurological examination did not reveal any focal deficits. SKIN: No rashes. No petechiae - Labs CBC & Chem 7: 08/01/19 07:16 08/01/19 07:16 Labs: Abnormal Lab Results - Last 24 Hours (Table) 07/31/19 08/01/19 08/01/19 Range/Units 20:37 07:14 07:16 WBC (3.8-10.6) k/uL MCHC (31.0-37.0) g/dL Neutrophils # (1.3-7.7) k/uL Lymphocytes # (1.0-4.8) k/uL Basophils # (0-0.2) k/uL Sodium 133 L (137-145) mmol/L BUN 28 H (7-17) mg/dL Creatinine 0.49 L (0.52-1.04) mg/dL Glucose 115 H (74-99) mg/dL POC Glucose (mg/dL) 175 H 118 H (75-99) mg/dL 08/01/19 08/01/19 08/01/19 Range/Units 07:16 12:11 17:27 WBC 29.6 H (3.8-10.6) k/uL MCHC 29.5 L (31.0-37.0) g/dL Neutrophils # 27.8 H (1.3-7.7) k/uL Lymphocytes # 0.3 L (1.0-4.8) k/uL Basophils # 0.4 H (0-0.2) k/uL Sodium (137-145) mmol/L BUN (7-17) mg/dL Creatinine (0.52-1.04) mg/dL Glucose (74-99) mg/dL POC Glucose (mg/dL) 115 H 146 H (75-99) mg/dL Assessment and Plan Assessment: masslike area of consolidation in the right mid lung zone, suspicious for right pneumonia. Cannot exclude cancer, cavitary lesion with air-fluid level, rule out abscess Acute COPD exacerbation hypertension Sinusitis Plan: this is a pleasant 79 years old female who presents with pneumonia and right lung mass like consolidation. COPD. Continue with antibiotic, continue with steroids.pulmonary consult . Follow-up CT of the chest Labs and medication were reviewed.. Continue same treatment. Continue with symptomatic treatment. Resume home medication. Monitor lytes and vitals. DVT and GI prophylaxis. Further recommendations of the clinical course of the patient DVT prophylaxis: Subcutaneous heparin GI Prophylaxis: Pepcid PT/OT: Pending Prognosis is guarded
--- NOTE | 2019-08-02 07:23 | XR ---
EXAMINATION TYPE: XR chest 1V portable DATE OF EXAM: 08/02/2019 COMPARISON: Prior chest x-ray 08/01/2019 HISTORY: Shortness of breath, MRSA pneumonia TECHNIQUE: Single frontal view of the chest is obtained. FINDINGS: Findings are essentially stable. IMPRESSION: Findings consistent with patient's history of pneumonia, follow-up to resolution to excl ude underlying mass. Emphysema.
[2019-08-02] MEDS: INSULIN ASPART (NovoLOG) 100 UNIT/ML VIAL SQ SCH ×2 (07:31→12:39)
[2019-08-02] MEDS: SYMBICORT 160-4.5 MCG INHALER INHALATION SCH (07:38)
[2019-08-02] MEDS: IPRATROPIUM-ALBUTEROL 3 ML NEB INHALATION SCH ×2 (07:38→11:14)
[2019-08-02 07:46] VITALS: RESP 19
[2019-08-02] MEDS: methylPREDNISolone SOD SUCCI 40 MG/ML 1 ML VIAL IV SCH (07:49)
[2019-08-02] MEDS: FAMOTIDINE 20 MG TAB PO SCH (07:49)
[2019-08-02] MEDS: LOSARTAN 25 MG TAB PO SCH (07:49)
[2019-08-02 11:30] LABS: Glucose,Whole Blood 215 mg/dL (75-99)
--- NOTE | 2019-08-02 12:27 | P.PN ---
Subjective Progress Note Date: 08/02/19 Principal diagnosis: Right lower lobe pneumonia, hospital-acquired This is a 79-year-old female patient with known history of severe oxygen- dependent COPD who presented to the emergency department last month and the patient was seen in consult by our service. The patient at that time she was having shortness of breath and she was diagnosed having COPD exacerbation and she was treated on outpatient basis with a combination of antibiotics and steroids and she was discharged home. She was having tracheal bronchitis. She was given IV antibiotics. She was given about treatments per she was given IV steroids. She did improve. She tested negative for the rao virus. At the time of discharge she was on 4 L of oxygen by nasal cannula and pulse ox is above 90% pH she typically uses 3 L of oxygen at home. At a time of discharge, she was asked to continue Anoro Ellipta in addition Symbicort maintenance in addition to to Ventolin rescue inhaler and DuoNeb nebulized treatments around the clock. The patient was also asked to take guaifenesin 600 mg every 12 hours on a when necessary basis. A CAT scan of the chest from 2018 showed moderate hyperinflation compatible with COPD with moderate upper lobe emphysematous change and parenchymal scarring in the right upper lobe. No evidence of any lung masses or tumors. The patient came in back to the emergency department on 07/22/2019 complaining of worsening shortness of breath. She was doing her breathing treatments frequently without much help. No fever. No chills. She did have a congested cough. The chest x-ray during the current admission showed an extensive right lower lobe pneumonia compared to the previous chest x-ray this was a new finding. The patient also has underlying COPD. No evidence of any heart failure. The patient was given Zithromax and admitted to the floor. The white cell count is 20.6. Troponin is less than 0.01. ProBNP level is 317. Lactic acid level is at 1.8. Covid 19 analysis still pending for now. On today's evaluation of 07/25/2019, I'm seeing this patient for a follow-up. She still is having difficulty breathing. She has a congested cough. Unable to bring up the sputum. A repeat chest x-ray was done and showed a involving the right midlung area. There is as bases also in the right lower lobe without any significant change compared to the previous chest x-ray from yesterday. This is obviously new onset consolidation and hospital-acquired pathogens need to be expected. I added cefepime. I'm going to add vancomycin also. The white cell count of 20.6. The patient is afebrile. The patient on 4 L about 2 by nasal cannula with a pulse ox of 97%. On 07/24/2019 patient seen in follow-up on the general medical floor, she is dyspneic with conversation, and with any exertion, but no acute distress, she remains on 4 L of oxygen the pulse ox of 96%, she is afebrile, hemodynamically patient is stable. Lung sounds reveal coarse inspiratory crackles at the right base, diminished breath sounds overall, she is on combination of cefepime and vancomycin, she states. Sample has been sent, and is pending at this time, today's labs have been reviewed leukocytosis is improving, white blood cell count is 16.0, hemoglobin of 11.2,, electrolytes are within normal limits, B1 is 37 creatinine 0.57, rao virus PCR test was negative. Pro-calcitonin level was elevated at 3.55 consistent with possibility of bacterial pneumonia. The patient is seen today 07/25/2019 in follow-up on the regular medical floor. She is currently resting fairly comfortably in bed. Still dyspneic with minimal conversation and minimal exertion. She is maintaining O2 saturations in the 90s on 4 L/m per nasal cannula. Sputum culture pending. Blood cultures revealing no growth to date. White count 15.8. Hemoglobin 11.8. Sodium 138. Potassium 4.5. Creatinine 0.66. She is currently on vancomycin and cefepime. Remains on bronchodilators, IV Solu-Medrol, Mucinex. The patient is seen today 07/26/2019 in follow-up on the regular medical floor. She is awake and alert in no acute distress. She remains quite dyspneic on minimal conversation and minimal exertion. She is still producing thick greenish yellow sputum. Sputum culture positive for MRSA and Cinthia blood culture shows no growth. White count 15.8. Hemoglobin 11.9. Sodium 139. Potassium 4.7. Creatinine 0.61. She is currently on vancomycin and cefepime along with IV Solu-Medrol, bronchodilators and Mucinex. The patient is seen today 07/27/2019 in follow-up on the regular medical floor. She is currently resting comfortably in bed. A bit less short of breath today compared to yesterday. Still with a loose productive cough. No fever chills. She is maintaining O2 saturations in the 90s on 4 L/m per nasal cannula. She's been afebrile. Sputum is causative for MRSA. Continued on vancomycin. Trough 24.0. Remains on bronchodilators and IV Solu-Medrol. On oral Diflucan. The patient is seen today 07/28/2019 in follow-up on the regular medical floor. She is awake and alert in no acute distress. Resting comfortably in bed. Continues to improve from the pulmonary standpoint. Maintaining O2 saturations in the 90s on 3 L/m per nasal cannula. She is afebrile. Chest x-ray continues to show right-sided pneumonia superimposed upon COPD. Slightly improved compared to admitting chest x-ray. Sputum was positive for MRSA and Cinthia. Blood cultures reveal no growth. Creatinine 0.61. Glucose 165. She is maintained on cefepime and vancomycin. Remains on bronchodilators, IV Solu- Medrol, Mucinex. The patient is seen today 07/29/2019 in follow-up on the regular medical floor. She is currently resting comfortably in bed. Awake and alert in no acute distress. Breathing a bit easier today compared to yesterday. She is maintaining O2 saturations in the 90s on 3 L/m per nasal cannula. She's been afebrile. Hemodynamically stable. Sputum culture was positive for MRSA and Cinthia. Creatinine 0.47. She is continued on vancomycin and cefepime. Follow-up chest x-ray reveals improving right mid lung consolidation, improved right lower lobe infiltrate. Small bilateral effusions remain. On 07/30/2019 patient is seen in follow-up on general medical floor. Still quiets significantly dyspneic with any conversation or any exertion, but appears to be in no acute distress, she is on 3 L of oxygen a pulse ox of 97%, patient is afebrile, her sputum culture revealed MRSA and Cinthia albicans, and patient is currently on combination of vancomycin and Diflucan, she is on IV steroids and Mucinex. No new chest x-ray today, yesterday's chest x-ray showed pers istence of right lung pneumonia though showing some limited improvement. Her pro-calcitonin continues to trend down, and is down to 0.12 on yesterday's labs. Patient has had no fever or chills. On 07/31/2019 patient seen in follow-up on the general medical floor, she is awake and alert, in no acute distress, she is on 3 L of oxygen per pulse ox is 99%, hemodynamically stable, she is afebrile, she is on vancomycin and Diflucan for MRSA and Cinthia albicans in her sputum. Today's chest x-ray has been reviewed showing improvement in the appearance of the right lung pneumonia. And patient has minimal bilateral pleural effusions. No altered mentation, no fever or chills. Today's labs have been reviewed showing white blood cell, 31.6, hemoglobin of 12.5, serum sodium of 135, potassium is 4.8, chloride is 103, CO2 is 29, B1 is 30 creatinine 0.56. Pro-calcitonin is improving, and is down to 0.12 on 07/29/2019. The patient is seen today 08/01/2019 in follow-up on the regular medical floor. She is awake and alert in no acute distress. She is currently sitting up at the bedside. Denies any worsening shortness of breath, cough or congestion. Her pulmonary status is improved. Continued on oxygen at 3 L/m per nasal cannula. Afebrile. Sputum culture was positive for MRSA and Cinthia. White count 29.6. Hemoglobin 12.0. Sodium 133. Potassium 4.6. Creatinine 0.49. She is co ntinued on DuoNeb inhalations, Symbicort, IV Solu-Medrol. Antibiotics in the form of vancomycin. The patient is seen today 08/02/2019 in follow-up on the regular medical floor. She is currently resting fairly comfortably in bed. Awake and alert in no acute distress. She remains dyspneic on minimal exertion. She is maintaining O2 saturations in the 90s on 3 L/m per nasal cannula. Computed tomography scan of the chest last evening revealed a right upper lobe consolidation with cavitary component ill-defined borders knowing her history of MRSA pneumonia. Extensive emphysematous changes of the lungs. Today's chest x-ray shows stable appearance of the right lung pneumonia. She remains on vancomycin. Vancomycin trough 16.5. Sodium 132. Potassium 4.6. Creatinine 0.41. Objective - Vital Signs Vital signs: Vital Signs Temp 98.2 F 08/02/19 07:00 Pulse 60 08/02/19 11:21 Resp 19 08/02/19 08:00 BP 161/82 08/02/19 07:00 Pulse Ox 99 08/02/19 07:00 Intake & Output 08/01/19 08/02/19 08/02/19 18:59 06:59 18:59 Other: Voiding Method Bedside Commode Bedside Commode Bedside Commode # Voids 1 2 - Exam GENERAL EXAM: Alert, very pleasant, cachectic 79-year-old female patient, on 3 L of oxygen with a pulse ox of 99%, comfortable in no apparent distress. HEAD: Normocephalic/atraumatic. EYES: Normal reaction of pupils, equal size. Conjunctiva pink, sclera white. NOSE: Clear with pink turbinates. THROAT: No erythema or exudates. NECK: No masses, no JVD, no thyroid enlargement, no adenopathy. CHEST: No chest wall deformity. Symmetrical expansion. LUNGS: Diminished air entry with inspiratory crackles at the right base, but no wheeze, rhonchi or dullness. CVS: Regular rate and rhythm, normal S1 and S2, no gallops, no murmurs, no rubs ABDOMEN: Soft, nontender. No hepatosplenomegaly, normal bowel sounds, no guarding or rigidity. EXTREMITIES: No clubbing, no edema, no cyanosis, 2+ pulses and upper and lower extremities. MUSCULOSKELETAL: Muscle strength and tone normal. SPINE: No scoliosis or deformity SKIN: No rashes CENTRAL NERVOUS SYSTEM: No focal deficits, tone is normal in all 4 extremities. PSYCHIATRIC: Alert and oriented -3. Appropriate affect. Intact judgment and insight. - Labs CBC & Chem 7: 08/01/19 07:16 08/02/19 05:32 Labs: Abnormal Lab Results - Last 24 Hours (Table) 08/01/19 08/01/19 08/02/19 Range/Units 17:27 20:30 05:32 Sodium 132 L (137-145) mmol/L BUN 30 H (7-17) mg/dL Creatinine 0.41 L (0.52-1.04) mg/dL Glucose 132 H (74-99) mg/dL POC Glucose (mg/dL) 146 H 132 H (75-99) mg/dL 08/02/19 08/02/19 Range/Units 06:59 11:28 Sodium (137-145) mmol/L BUN (7-17) mg/dL Creatinine (0.52-1.04) mg/dL Glucose (74-99) mg/dL POC Glucose (mg/dL) 127 H 215 H (75-99) mg/dL Assessment and Plan Assessment: 1 right lower lobe pneumonia, secondary to MRSA and the patient was hospitalized recently in June 2019 for COPD exacerbation. Computed tomography scan of the chest shows right upper lobe consolidation with cavitary component anteriorly and ill-defined borders in keeping with the patient's history of MRSA. She also has extensive emphysematous changes of the lungs. 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 Linda CAT scan and chest x-ray reviewed She is cleared for discharge from the pulmonary standpoint Complete course of antibiotics, possibly in the form of Bactrim Complete prednisone taper starting at 40 mg for 4 days Follow-up in our office in 1 week Her overall prognosis is quite guarded due to the severity of her COPD I, the cosigning physician, performed a history & physical examination of the patient. Lungs sounds with inspiratory crackles of the right lung, diminished. Maintaining good O2 saturations in the 90s on 3 L/m per nasal cannula. I discussed the assessment and plan of care with my nurse practitioner, Darlene Underwood. I attest to the above note as dictated by her.
[2019-08-02 15:24] VITALS: BP 135/70; TEMP 97.9
--- NOTE | 2019-08-02 15:50 | P.DS ---
Providers Date of admission: 07/22/19 20:29 Attending physician: Diana Escalante Consults: 07/22/19 20:30 Consult Physician Routine Consulting Provider: Treva Granados Consult Reason/Comments: Pneumonia, COPD, hypoxia Do you want consulting provider notified?: Yes Primary care physician: Sadie Perez [place] Hospital Course: this is a pleasant 79 years old female with past medical history of COPD, pne umonia.she follows up with Dr. Wolfe.patient presents with progressive dyspnea associated with productive cough with green yellow phlegm. No chest pain. No fever. She is on home oxygen 3 nuclear via nasal cannula. No abdominal pain, no nausea vomiting, no change in urine or bowel habits. patient showing saturation of oxygen at 97% on 4 L oxygen via nasal cannula, patient is afebrile. on admission she has leukocytosis of 20.6 K, INR and results of CBC is unremarkable. Liver enzymes not elevated, LDH is 768, C-reactive protein is 238 and ferritin is pending chest x-ray showing large masslike area of consolidation in the right mid lung zone EKG showing sinus tachycardia at 1 or [address]-T changes in the emergency room she was started on Rocephin and Zithromax, steroids and breathing treatment. Vancomycin is also added 07/24/2019 Patient still complaining of from dyspnea and coughing same as she came in. She is fully awake and oriented. No chest pain she saturating 96% on 4 L oxygen of the nasal cannula WBCs 16, rest of CBC and BMP is unremarkable. Patient is followed closely by pulmonary team. she remains on cefepime and vancomycin. Also she is on Solu-Medrol 40 mg twice daily. 07/25/2019 Patient is still significantly dyspneic and she could not finish talking to her sentences She is saturating 91-97% and 4 L oxygen of the nasal cannula. WBC 15.8 K, BMP is unremarkable. Gram stain showing few gram-positive cocci and rare gram- positive bacilli. Chest x-ray showing better orientation may be small right pleural effusion and reviewed by me. She remains on cefepime and vancomycin. 07/26/2019 Patient remains dyspneic and short of breath. Especially when she tries to talk. She remains on oxygen saturation of 4 L/m via nasal cannula and saturating at 90, rest of vitals are stable. WBC 15.8 K. BMP and glucose is unremarkable. Sputum culture is growing MRSA and cody. Patient is already on vancomycin and cefepime, we'll add Diflucan for a few days 07/27/2019 patient is awake and alert, she is improving slowly, she still dyspneic with coughing however she said that she is breathing more easily. She saturating 91% on 4 L oxygen. However she reports loose stool today, check for C. diff. No Abdominal pain or nausea vomiting. She is still on vancomycin for MRSA by pulmonary team who following the patient closely 07/28/2019 Patient is improving slowly however she still have some difficulty when talking. The scope is slightly better. She still has diarrhea but o'clock yesterday when it was running throughout the whole day compared today she has only 3 bowel movements since morning. Vitals are stable and remains unsedated to oxygen via nasal cannula. However she is less to keep it Creatinine 0.6 while she remains on IV vancomycin and cefepime Repeat chest x-ray looks improved when reviewed by me 07/29/2019 She's awake, breathing easier. She still can easier. Vitals stable, she still saturating high 90s on 3 L and then went down her oxygen level. Creatinine 0.4, sugar controlled She still needs to be on cefepime, vancomycin and some Medrol 40 mg 07/30/2019 Patient today for the first time states that she feels better and she is pleasant. She was able to walk around the room. However she still gets tired when she talks a little bit more. Oxygen saturation 97% on 3 L. Sugar controlled and creatinine 0.5 She remains on cefepime, vancomycin and Solu-Medrol 40 mg twice a day. 07/31/2019 Patient is less dyspneic. She still needs breathing treatments. Oxygen saturation is 97% on 32 after oxygenated via nasal cannula. She is hemodynamically stable. WBC is up today to 30 1.6K however she is on steroids. Creatinine is normal at 0.5. She remains on vancomycin for MRSA in sputum culture secondary to right mid lung pneumonia chest x-ray this morning showing only mild improvement of right lung consolidation We will keep following with the patient 08/01/2019 Patient is breathing better, she is saturating 90s percent on 3 L oxygen via nasal cannula. Respiratory vitals are stable She has increasing WBC 29.6K although pt is on steroids effect also, her chest x-ray showing right mid lung consolidation compatible with pneumonia with a component of air-fluid level, we will do a CT of the chest rule out abscess otherwise she is clear for discharge from pulmonary team with follow-up appointments is set on 08/1208/02/2019 Patient has advanced COPD uses 3 L of onset at home patient is feeling better is cleared from pulmonary perspective. Patient has a cavitary lesion secondary to MRSA pneumonia and the pulmonary's recommending 10 more days of Bactrim. PHYSICAL EXAMINATION: GENERAL: The patient is alert and oriented x3, not in any acute distress. Well developed, well nourished. HEENT: Pupils are round and equally reacting to light. EOMI. No scleral icterus. No conjunctival pallor. Normocephalic, atraumatic. No pharyngeal erythema. No thyromegaly. CARDIOVASCULAR: S1 and S2 present. No murmurs, rubs, or gallops. PULMONARY: Bilateral rhonchi without any significant wheeze decreased air entry into bilateral lung atkins ABDOMEN: Soft, nontender, nondistended, normoactive bowel sounds. No palpable organomegaly. MUSCULOSKELETAL: No joint swelling or deformity. EXTREMITIES: No cyanosis, clubbing, or pedal edema. NEUROLOGICAL: Gross neurological examination did not reveal any focal deficits. SKIN: No rashes. Assessment and plan: -Cavitary lesion and MRSA pneumonia and sepsis secondary to that -Acute on chronic hypercapnic respiratory failure secondary to sober exacerbation -Hypertension -Hyponatremia: Secondary to pulmonary cavitary lesion and SIADH from that patient is being discharged on Bactrim which can also cause hyponatremia since I believe this hyponatremia secondary to SIDH which should actually get better with diuretics and Bactrim has a diuretic effect. I'll repeat a basic metabolic profile in 3 days to assess her lites patient will need a CBC and BMP in about a week as patient is on Bactrim patient will follow-up with her PCP and pulmonary as an outpatient Patient Condition at Discharge: Serious Plan - Discharge Summary Discharge Rx Participant: No New Discharge Prescriptions: New Sulfamethoxazole/Trimethoprim [Bactrim DS 800-160 mg] 1 each PO 20 #10 tablet Famotidine [Pepcid] 20 mg PO Q12HR #60 tab predniSONE 10 mg PO DIRECTED #40 tab Continue Umeclidinium Brm/Vilanterol Tr [Anoro Ellipta 62.5-25 Mcg INH] 1 puff INHALATION RT-DAILY Loratadine [Claritin] 10 mg PO DAILY Ipratropium-Albuterol Nebulize [Duoneb 0.5 mg-3 mg/3 ml Soln] 3 ml INHALATION RT-QID #30 ampul.neb Multivitamins, Thera [Multivitamin (formulary)] 1 tab PO Q48H guaiFENesin [Mucinex] 600 mg PO Q12HR PRN PRN Reason: congestion Fluticasone Nasal [place] [Flonase Nasal [place]] 2 spr EA NOSTRIL BID Budesonide-Formot 160-4.5 Mcg [Symbicort 160-4.5 Mcg Inhaler] 2 puff INHALATION RT-BID Losartan [Cozaar] 25 mg PO DAILY #30 tab guaiFENesin SYRUP 100MG/5ML [Robitussin] 200 mg PO Q6H PRN ml PRN Reason: Cough Albuterol Sulfate [Ventolin HFA] 1 - 2 puff INHALATION RT-Q4H PRN PRN Reason: Shortness Of Breath Discontinued Furosemide [Lasix] 40 mg PO DAILY Potassium Chloride ER [K-Dur 20] 20 meq PO DAILY Discharge Medication List Loratadine [Claritin] 10 mg PO DAILY 07/11/18 [History] Umeclidinium Brm/Vilanterol Tr [Anoro Ellipta 62.5-25 Mcg INH] 1 puff INHALATION RT-DAILY 07/11/18 [History] Ipratropium-Albuterol Nebulize [Duoneb 0.5 mg-3 mg/3 ml Soln] 3 ml INHALATION RT-QID #30 ampul.neb 07/21/18 [Rx] Budesonide-Formot 160-4.5 Mcg [Symbicort 160-4.5 Mcg Inhaler] 2 puff INHALATION RT-BID 06/28/19 [History] Fluticasone Nasal [place] [Flonase Nasal [place]] 2 spr EA NOSTRIL BID 06/28/19 [History] Multivitamins, Thera [Multivitamin (formulary)] 1 tab PO Q48H 06/28/19 [History] guaiFENesin [Mucinex] 600 mg PO Q12HR PRN 06/28/19 [History] Losartan [Cozaar] 25 mg PO DAILY #30 tab 07/07/19 [Rx] guaiFENesin SYRUP 100MG/5ML [Robitussin] 200 mg PO Q6H PRN ml 07/07/19 [Rx] Albuterol Sulfate [Ventolin HFA] 1 - 2 puff INHALATION RT-Q4H PRN 07/22/19 [History] Famotidine [Pepcid] 20 mg PO Q12HR #60 tab 08/01/19 [Rx] Sulfamethoxazole/Trimethoprim [Bactrim DS 800-160 mg] 1 each PO 20 #10 tablet 08/01/19 [Rx] predniSONE 10 mg PO DIRECTED #40 tab 08/01/19 [Rx] Follow up Appointment(s)/Referral(s): Nora Linda MD [STAFF PHYSICIAN] - 08/13/19 3:15 pm (With Sadie Hassan DO [Primary Care Provider] - 3 Days (Virtual appointment through skype or [employer]. Please call to set up appointment) [facility], [NON-STAFF] - As Needed Ambulatory/Diagnostic Orders: Basic Metabolic Panel [LAB.AMB] Time Frame: 3 Days, Location: None Selected Discharge Disposition: HOME WITH HOME HEALTH SERVICES
[2019-08-02 16:27] VITALS: PULSE 71
[2019-08-02 16:33] LABS: Glucose,Whole Blood 110 mg/dL (75-99)
== END 2019-08-02 17:30 | disposition home health service (06) | DRG 871 ==
LOC: EC 18:28 → 4SSUR 20:29
PROVIDERS: ADMIT Internal Medicine; ATTEND Internal Medicine
DX: A41.02 Sepsis due to Methicillin resistant Staphylococcus aureus (principal); J15.212 Pneumonia due to Methicillin resistant Staphylococcus aureus; J96.22 Acute and chronic respiratory failure with hypercapnia; J96.21 Acute and chronic respiratory failure with hypoxia; E44.0 Moderate protein-calorie malnutrition; Z68.1 Body mass index [BMI] 19.9 or less, adult; R64 Cachexia; J44.0 Chronic obstructive pulmonary disease with (acute) lower respiratory infection; J44.1 Chronic obstructive pulmonary disease with (acute) exacerbation; E22.2 Syndrome of inappropriate secretion of antidiuretic hormone; J96.11 Chronic respiratory failure with hypoxia; Z20.828 Contact with and (suspected) exposure to other viral communicable diseases; Z99.81 Dependence on supplemental oxygen; Y95 Nosocomial condition; I10 Essential (primary) hypertension; J32.9 Chronic sinusitis, unspecified; R91.1 Solitary pulmonary nodule; R19.7 Diarrhea, unspecified; Z79.51 Long term (current) use of inhaled steroids; Z79.899 Other long term (current) drug therapy; Z87.891 Personal history of nicotine dependence; Z87.01 Personal history of pneumonia (recurrent); Z98.42 Cataract extraction status, left eye; Z98.41 Cataract extraction status, right eye; Z90.49 Acquired absence of other specified parts of digestive tract; Z98.890 Other specified postprocedural states; Z88.6 Allergy status to analgesic agent; Z82.49 Family history of ischemic heart disease and other diseases of the circulatory system; Z83.3 Family history of diabetes mellitus; Z80.52 Family history of malignant neoplasm of bladder
CPT/HCPCS: 36415; 71045; 71046; 71250; 80048; 80053; 80202; 82565; 82728; 83605; 83615; 83735; 83880; 84145; 84484; 85025; 85610; 85730; 86140; 87040; 87070; 87077; 87186; 87205; 87635; 93005; 94640; 96374; 99291

== ENCOUNTER → 2019-09-03 | Outpatient (CLI) | payer MEDICARE, BC ==
--- NOTE | 2019-09-03 12:48 | CT ---
EXAMINATION TYPE: CT chest wo con DATE OF EXAM: 09/03/2019 COMPARISON: 08/01/2019 and 07/17/2018 HISTORY: 79-year-old female Shortness of breath. TECHNIQUE: Contiguous axial scanning of the chest without IV contrast. Coronal and sagittal reconstru ctions performed. CT DLP: 212 mGycm Automated exposure control for dose reduction was used. FINDINGS: Heart normal size without pericardial effusion. LAD calcifications are present. Conventional branching anatomy. Ectatic lower descending thoracic aorta at 2.8 cm. Large caliber to the main right and left pulmonary arteries are 2.9 and 2.7 cm, respectively, suggest ing underlying pulmonary hypertension. Allowing for noncontrast technique, no thoracic lymphadenopathy is identified. Patchy opacity in the superior segment right lower lobe remains but shows improvement as compared to 08/01/2019. Underlying cystic change could represent emphysematous cysts or areas of cavitation relati ng to the inflammatory process. Some linear thickening extending superiorly within the lateral right upper lobe was present back on as well suggesting a benign etiology, axial image 20. Biapical pleural parenchymal scarring. Moderate centrilobular emphysema. The previous partially visualized possible right-sided hydronephrosis is not included on the present exam. Bones: Accentuated midthoracic kyphosis with mild degenerative disc disease. IMPRESSION: 1. PARTIAL RESOLUTION OF THE PATIENT'S SUPERIOR SEGMENT RIGHT LOWER LOBE CONSOLIDATION. RESIDUAL PATC HY DENSITY REMAINS HERE. RESOLVING PNEUMONIA IS FAVORED. SOME UNDERLYING CYSTIC CHANGE COULD REFLECT EMPHYSEMATOUS CYSTS OR CAVITARY CHANGE FROM THE INFLAMMATORY PROCESS. FOLLOW-UP IN 3 MONTHS TO REASSE SS. 2. COPD WITH BACKGROUND MODERATE EMPHYSEMA AND PULMONARY ARTERIAL HYPERTENSION.
== END | disposition home or self-care (01) ==
LOC: RADCTMAIN 11:37
PROVIDERS: ATTEND Nurse Practitioner Adult Health
DX: J43.9 Emphysema, unspecified (principal); I27.21 Secondary pulmonary arterial hypertension; J15.212 Pneumonia due to Methicillin resistant Staphylococcus aureus
CPT/HCPCS: 71250

== ENCOUNTER → 2020-02-26 | Outpatient (CLI) | payer MEDICARE, BC ==
[2020-02-26 22:41] LABS: Chol/HDL Ratio 2.16
== END | disposition home or self-care (01) ==
LOC: LABWHC1 11:54
PROVIDERS: ATTEND Internal Medicine Cardiovascular Disease
DX: E78.2 Mixed hyperlipidemia (principal)
CPT/HCPCS: 36415; 80061; 84450; 84460

== ENCOUNTER 2020-09-11 21:50 | Emergency (ER) | payer MEDICARE, BC ==
--- NOTE | 2020-09-11 22:11 | ED ---
General Adult HPI - General Chief complaint: Weakness Stated complaint: SOB Time Seen by Provider: 09/11/20 21:52 Source: patient, EMS Mode of arrival: EMS Limitations: no limitations - History of Present Illness Initial comments: Patient presents to the ED by ambulance for evaluation. Patient states that she has had difficulty breathing for the past 5 hours or so, and she states that just prior to calling for an ambulance this evening, she developed trouble using her left arm. Patient states that she had spasming of her left arm and left leg, but this has currently resolved. Patient denies having any left arm weakness or spasming currently. Patient states that she has been using her albuterol inhaler without much relief. Patient denies having any pain, fever or chills, headache, focal numbness, visual changes, speech difficulty, neck/anson k/extremity pain, chest pain, cough or cold symptoms, palpitations, dizziness, abdominal pain, nausea/vomiting/diarrhea, dysuria or urinary symptoms, decreased urine output, leg or calf swelling or pain, or any other symptoms or complaints. Patient states that she is chronically on 3 L of home O2. Patient also states that she was bitten by a tick along her right abdominal wall last week, and she states that she removed the tick herself. - Related Data Home Medications Medication Instructions Recorded Confirmed Loratadine [Claritin] 10 mg PO DAILY 07/11/18 07/22/19 Umeclidinium Brm/Vilanterol Tr 1 puff INHALATION RT-DAILY 07/11/18 07/22/19 [Anoro Ellipta 62.5-25 Mcg INH] Budesonide-Formot 160-4.5 Mcg 2 puff INHALATION RT-BID 06/28/19 07/22/19 [Symbicort 160-4.5 Mcg Inhaler] Fluticasone Nasal [place] [Flonase 2 spr EA NOSTRIL BID 06/28/19 07/22/19 Nasal [place]] Multivitamins, Thera [Multivitamin 1 tab PO Q48H 06/28/19 07/22/19 (formulary)] guaiFENesin [Mucinex] 600 mg PO Q12HR PRN 06/28/19 07/22/19 Albuterol Sulfate [Ventolin HFA] 1 - 2 puff INHALATION RT-Q4H PRN 07/22/19 07/22/19 Previous Rx's Medication Instructions Recorded Ipratropium-Albuterol Nebulize 3 ml INHALATION RT-QID #30 07/21/18 [Duoneb 0.5 mg-3 mg/3 ml Soln] ampul.neb Losartan [Cozaar] 25 mg PO DAILY #30 tab 07/07/19 guaiFENesin SYRUP 100MG/5ML 200 mg PO Q6H PRN ml 07/07/19 [Robitussin] Famotidine [Pepcid] 20 mg PO Q12HR #60 tab 08/01/19 Sulfamethoxazole/Trimethoprim 1 each PO 20 #10 tablet 08/01/19 [Bactrim DS 800-160 mg] predniSONE 10 mg PO DIRECTED #40 tab 08/01/19 Allergies Allergy/AdvReac Type Severity Reaction Status Date / Time aspirin AdvReac excessive Verified 07/22/19 20:55 brusing Review of Systems ROS Statement: Those systems with pertinent positive or pertinent negative responses have been documented in the HPI. ROS Other: All systems not noted in ROS Statement are negative. Past Medical History Past Medical History: COPD, Pneumonia, Respiratory Disorder Additional Past Medical History / Comment(s): cataracts(sx done), "bruises easily-thin fragile skin", lower dental bridge. History of Any Multi-Drug Resistant Organisms: MRSA Date of last positivie culture/infection: 07/24/19 MDRO Source:: MRSA SPUTUM Past Surgical History: Appendectomy, Tonsillectomy Additional Past Surgical History / Comment(s): Bilateral cataracts Past Anesthesia/Blood Transfusion Reactions: No Reported Reaction Past Psychological History: No Psychological Hx Reported Smoking Status: Former smoker Past Alcohol Use History: None Reported Past Drug Use History: None Reported - Past Family History Mother Family Medical History: Myocardial Infarction ([place]) Additional Family Medical History / Comment(s): Mother from a ruptured brain aneurysm, history of a heart attack Father Family Medical History: Diabetes Mellitus Additional Family Medical History / Comment(s): "heart problems" Father from bladder cancer , General Exam Limitations: no limitations General appearance: alert Head exam: Present: atraumatic, normocephalic Eye exam: Present: normal appearance, PERRL, EOMI ENT exam: Present: mucous membranes moist Neck exam: Present: other (Trachea is in midline). Absent: tenderness Respiratory exam: Present: respiratory distress, wheezes, other (Equal breath sounds bilaterally; tachypnea; patient is able to speak in short sentences only). Absent: rales, rhonchi, stridor Cardiovascular Exam: Present: regular rate, normal rhythm, normal heart sounds, other (Normal radial pulses bilaterally) GI/Abdominal exam: Present: soft, other (A dime-sized area of ecchymosis is noted to the patient's right abdominal wall in the area that she reports she was bitten by a tick; no tick is seen). Absent: distended, tenderness, guarding Extremities exam: Present: full ROM, other (Negative Homans sign bilaterally). Absent: tenderness, pedal edema, calf tenderness Neurological exam: Present: alert, oriented X3, CN II-XII intact. Absent: motor sensory deficit Psychiatric exam: Present: anxious Skin exam: Present: warm, dry, intact, normal color Course Vital Signs 09/11/20 09/11/20 09/11/20 21:56 22:40 22:57 Temperature 98.7 F Pulse Rate 107 H 110 H 112 H Respiratory 22 Rate Blood Pressure 180/105 O2 Sat by Pulse 97 Oximetry - Reevaluation(s) Reevaluation #1: 09/11/20 23:41 Patient's blood pressure has now improved to 135/87. Patient remains alert, and she continues to deny having a headache. Patient's breathing has improved on Bi PAP ventilation. Patient and daughters are aware the patient's test results, and they all agree with transfer to [facility] given her intracranial hemorrhage and need for neurosurgical evaluation. 09/11/20 23:46 Case, H&P, test results and ED management were discussed with Dr. Lakhani (ED physician at [facility]). He accepts ambulance transfer to the [facility] ED. He has no further recommendations at this time. EKG Findings - EKG Comments: EKG Findings:: Normal sinus rhythm, ventricular rate of 100 bpm, no ectopy, normal MD and QRS intervals, normal QT interval, normal axis, left anterior fascicular block, no ST or T-wave abnormality Medical Decision Making - Medical Decision Making Patient was treated with IV Solu-Medrol, a DuoNeb treatment and BiPAP ventilation for her COPD, and her breathing has now improved. Patient was also treated with oral doxycycline for her reported tick bite. Patient's blood pressure has improved without any medical management. Given the patient's intracranial hemorrhage noted on head CT, will transfer the patient to a facility with neurosurgical services. Patient has been alert and responsive while in the ED. Patient denies taking any anticoagulant medication. Patient has been accepted for ambulance transfer to [facility] ED. - Lab Data Result diagrams: 09/11/20 22:01 09/11/20 22:01 Lab Results 09/11/20 09/11/20 09/11/20 Range/Units 22:01 22: 22: WBC 14.1 H (3.8-10.6) k/uL RBC 4.96 (3.80-5.40) m/uL Hgb 14.2 (11.4-16.0) gm/dL Hct 44.0 (34.0-46.0) % MCV 88.7 (80.0-100.0) fL MCH 28.7 (25.0-35.0) pg MCHC 32.4 (31.0-37.0) g/dL RDW 14.1 (11.5-15.5) % Plt Count 190 (150-450) k/uL MPV 7.0 Neutrophils % 78 % Lymphocytes % 13 % Monocytes % 6 % Eosinophils % 1 % Basophils % 0 % Neutrophils # 11.0 H (1.3-7.7) k/uL Lymphocytes # 1.9 (1.0-4.8) k/uL Monocytes # 0.9 (0-1.0) k/uL Eosinophils # 0.1 (0-0.7) k/uL Basophils # 0.0 (0-0.2) k/uL PT 9.9 (9.0-12.0) sec INR 0.9 (<1.2) APTT 20.7 L (22.0-30.0) sec Sodium 142 (137-145) mmol/L Potassium 4.8 (3.5-5.1) mmol/L Chloride 103 (98-107) mmol/L Carbon Dioxide 30 (22-30) mmol/L Anion Gap 9 mmol/L BUN 28 H (7-17) mg/dL Creatinine 0.62 (0.52-1.04) mg/dL Est GFR (CKD-EPI)AfAm >90 (>60 ml/min/1.73 sqM) Est GFR (CKD-EPI)NonAf 86 (>60 ml/min/1.73 sqM) Glucose 100 H (74-99) mg/dL Plasma Lactic Acid Andres (0.7-2.0) mmol/L Calcium 10.3 H (8.4-10.2) mg/dL Total Bilirubin 0.5 (0.2-1.3) mg/dL AST 28 (14-36) U/L ALT 25 (4-34) U/L Alkaline Phosphatase 60 (38-126) U/L Troponin I (0.000-0.034) ng/mL NT-Pro-B Natriuret Pep pg/mL Total Protein 7.0 (6.3-8.2) g/dL Albumin 4.4 (3.5-5.0) g/dL 09/11/20 09/11/20 09/11/20 Range/Units 22:01 22:01 22:01 WBC (3.8-10.6) k/uL RBC (3.80-5.40) m/uL Hgb (11.4-16.0) gm/dL Hct (34.0-46.0) % MCV (80.0-100.0) fL MCH (25.0-35.0) pg MCHC (31.0-37.0) g/dL RDW (11.5-15.5) % Plt Count (150-450) k/uL MPV Neutrophils % % Lymphocytes % % Monocytes % % Eosinophils % % Basophils % % Neutrophils # (1.3-7.7) k/uL Lymphocytes # (1.0-4.8) k/uL Monocytes # (0-1.0) k/uL Eosinophils # (0-0.7) k/uL Basophils # (0-0.2) k/uL PT (9.0-12.0) sec INR (<1.2) APTT (22.0-30.0) sec Sodium (137-145) mmol/L Potassium (3.5-5.1) mmol/L Chloride (98-107) mmol/L Carbon Dioxide (22-30) mmol/L Anion Gap mmol/L BUN (7-17) mg/dL Creatinine (0.52-1.04) mg/dL Est GFR (CKD-EPI)AfAm (>60 ml/min/1.73 sqM) Est GFR (CKD-EPI)NonAf (>60 ml/min/1.73 sqM) Glucose (74-99) mg/dL Plasma Lactic Acid Andres 2.4 H* (0.7-2.0) mmol/L Calcium (8.4-10.2) mg/dL Total Bilirubin (0.2-1.3) mg/dL AST (14-36) U/L ALT (4-34) U/L Alkaline Phosphatase (38-126) U/L Troponin I <0.012 (0.000-0.034) ng/mL NT-Pro-B Natriuret Pep 287 pg/mL Total Protein (6.3-8.2) g/dL Albumin (3.5-5.0) g/dL - Radiology Data Radiology results: report reviewed (Chest x-ray: No active cardiopulmonary disease, COPD) Noncontrast head CT: Mixed density in the right temporal and occipital lobe consistent with acute hemorrhagic infarct. There is also subarachnoid hemorrhage in the sylvian fissure. Critical Care Time Critical Care Time: Yes Total Critical Care Time: 60 Disposition Clinical Impression: COPD (chronic obstructive pulmonary disease), Tick bite, Left-sided weakness, Intracranial hemorrhage Disposition: OTHER INSTITUTION NOT DEFINED Condition: Stable Is patient prescribed a controlled substance at d/c from ED?: No Referrals: Sadie Perez DO [Primary Care Provider] - 1-2 days Time of Disposition: 23:54 - Out of Hospital Transfer - Req. Specs Out of Hospital Transfer - Requested Specifics: Other Emergency Center ([facility])
[2020-09-11] MEDS ORDERED: IPRATROPIUM-ALBUTEROL 3 ML NEB INHALATION STA (22:15)
[2020-09-11] MEDS ORDERED: LORazepam 2 MG/ML INJ IV STA (22:16)
[2020-09-11 22:18] LABS: Basophils % (A) 0 %; Eosinophils # (A) 0.1 k/uL (0-0.7); Eosinophils % (A) 1 %; HGB 14.2 gm/dL (11.4-16.0); Lymphocytes # (A) 1.9 k/uL (1.0-4.8); Lymphocytes % (A) 13 %; MCH 28.7 pg (25.0-35.0); MCHC 32.4 g/dL (31.0-37.0); MCV 88.7 fL (80.0-100.0); Monocytes # (A) 0.9 k/uL (0-1.0); Monocytes % (A) 6 %; Neutrophils % (A) 78 %; Platelet Count 190 k/uL (150-450); RBC 4.96 m/uL (3.80-5.40); RDW 14.1 % (11.5-15.5); WBC 14.1 k/uL (3.8-10.6)
[2020-09-11 22:28] LABS: ALT 25 U/L (4-34); AST 28 U/L (14-36); African American GFR (CKD) >90 (>60 ml/min/1.73 sqM); Albumin 4.4 g/dL (3.5-5.0); Alkaline Phosphatase 60 U/L (38-126); Anion Gap 9 mmol/L; Blood Urea Nitrogen 28 mg/dL (7-17); Calcium 10.3 mg/dL (8.4-10.2); Carbon Dioxide 30 mmol/L (22-30); Chloride 103 mmol/L (98-107); Glucose 100 mg/dL (74-99); Non-African American GFR(CKD) 86 (>60 ml/min/1.73 sqM); Potassium 4.8 mmol/L (3.5-5.1); Sodium 142 mmol/L (137-145); Total Bilirubin 0.5 mg/dL (0.2-1.3)
[2020-09-11 22:37] LABS: INR 0.9 (<1.2); Prothrombin Time 9.9 sec (9.0-12.0)
--- NOTE | 2020-09-11 22:40 | XR ---
EXAMINATION TYPE: XR chest 1V portable DATE OF EXAM: 09/11/2020 COMPARISON: 08/02/2019 HISTORY: Short of breath TECHNIQUE: FINDINGS: Heart size is normal. There is no heart failure. There are no hilar masses. There is mild f lattening of the diaphragm. There are chest leads. Thoracic aorta is atheromatous. IMPRESSION: No active cardiopulmonary disease. COPD. There is clearing of the infiltrate in the right midlung field compared to old exam. There is clearing of the pleural reaction left lung base compare d to old exam.
[2020-09-11 22:50] LABS: Partial Thromboplastin Time 20.7 sec (22.0-30.0)
[2020-09-11] MEDS ORDERED: DOXYCYCLINE 100 MG CAP PO STA (22:59)
[2020-09-11] MEDS ORDERED: SODIUM CHLORIDE 0.9% 1,000 ML IV ONE (23:03)
--- NOTE | 2020-09-11 23:44 | CT ---
EXAMINATION TYPE: CT brain wo con DATE OF EXAM: 09/11/2020 COMPARISON: None HISTORY: ams CT DLP: 1202.4 mGycm Automated exposure control for dose reduction was used. There is irregular high attenuation in the right cerebral hemisphere involving the temporal lobe cons istent with acute parenchymal hemorrhage. There are multiple areas of hemorrhage and the largest area measures 2.5 cm. There is hemorrhage in the right sylvian fissure. The calvarium is intact. There is hypodensity in the right occipital and right posterior temporal lobe thomas and white matter. This cou ld be an acute infarct. IMPRESSION: Mixed density in the right temporal and occipital lobe consistent with acute hemorrhagic infarct. The re is also subarachnoid hemorrhage in the sylvian fissure. This exam was discussed with ER physician at 11:45 PM.
[2020-09-12 01:49] VITALS: RESP 18; TEMP 98.4
[2020-09-12 01:50] VITALS: BP 142/94; PULSE 95
== END 2020-09-12 00:50 | disposition other institution (70) ==
LOC: EC 21:50
DX: J44.9 Chronic obstructive pulmonary disease, unspecified (principal); I62.9 Nontraumatic intracranial hemorrhage, unspecified; S30.861A Insect bite (nonvenomous) of abdominal wall, initial encounter; W57.XXXA Bitten or stung by nonvenomous insect and other nonvenomous arthropods, initial encounter; Z79.51 Long term (current) use of inhaled steroids; Z79.52 Long term (current) use of systemic steroids; Z79.899 Other long term (current) drug therapy; Z87.891 Personal history of nicotine dependence; Z88.6 Allergy status to analgesic agent; Z83.3 Family history of diabetes mellitus; Z82.49 Family history of ischemic heart disease and other diseases of the circulatory system
CPT/HCPCS: 36415; 94660; 94640; 36600 ×2; 93005; 83880; 80053; 83605; 84484; 85025; 85610; 85730; 87040; 87635; 71045; 70450; 96365; 96375; 96361; 99285; J2060; J2930

== ENCOUNTER 2020-10-16 18:56 | Inpatient (IN) | payer MEDICARE, BC ==
--- NOTE | 2020-10-16 19:10 | ED ---
SOB HPI - General Chief Complaint: Shortness of Breath Stated Complaint: KAMI Time Seen by Provider: 10/16/20 18:56 Source: patient, EMS, RN notes reviewed, old records reviewed Mode of arrival: EMS - History of Present Illness Initial Comments: This is a 79-year-old female with a history of traumatic subdural hemorrhage COPD malnutrition generalized weakness hypertension who was sent in from [place] today because of shortness of breath. He's also had have her oxygen inc reased from her normal 3 L to 5 L. She had low pulse ox. She really had a negative recent cold and did swab but was positive by PCR. Additionally she does have a history of chronic pneumonias. MD Complaint: shortness of breath - Related Data Home Medications Medication Instructions Recorded Confirmed Loratadine [Claritin] 10 mg PO DAILY@0800 07/11/18 10/16/20 Budesonide-Formot 160-4.5 Mcg 2 puff INHALATION RT-BID@0800,1700 06/28/19 10/16/20 [Symbicort 160-4.5 Mcg Inhaler] ALPRAZolam [Xanax] 0.25 mg PO BID PRN 10/16/20 10/16/20 Acetaminophen Suppository 1 dose RECTAL Q6H PRN 10/16/20 10/16/20 HYDROcodone/APAP 5-325MG [Theresa 1 tab PO Q6H PRN 10/16/20 10/16/20 5-325] Ipratropium-Albuterol Nebulize 3 ml INHALATION RT-Q6H PRN 10/16/20 10/16/20 [Duoneb 0.5 mg-3 mg/3 ml Soln] Ipratropium-Albuterol Nebulize 3 ml INHALATION RT-QID 10/16/20 10/16/20 [Duoneb 0.5 mg-3 mg/3 ml Soln] Lactose-Reduced Food [Ensure Plus] 1 can PO TID@0800,1200,1700 10/16/20 10/16/20 Lidocaine 5% Patch [Lidoderm] 1 patch TOPICAL DAILY 10/16/20 10/16/20 Losartan [Cozaar] 25 mg PO DAILY@0800 10/16/20 10/16/20 Magnesium Hydroxide [Milk of 7,200 mg PO DAILY PRN 10/16/20 10/16/20 Magnesia Concentrate] Na Phos,M-B/Na Phos,Di-Ba [Fleet 133 ml RECTAL DAILY PRN 10/16/20 10/16/20 Adult] Pantoprazole [Protonix] 40 mg PO DAILY@0800 10/16/20 10/16/20 Sodium Chloride [Saline Nasal 1 spray EA NOSTRIL Q2H PRN 10/16/20 10/16/20 [place]] bisacodyL [Dulcolax] 10 mg RECTAL DAILY PRN 10/16/20 10/16/20 fentaNYL 25MCG/HR PATCH [Duragesic 1 patch TRANSDERM Q72H 10/16/20 10/16/20 25MCG/HR] levETIRAcetam ORAL SOLN [Keppra 500 mg PO BID@0800,2100 10/16/20 10/16/20 Oral Soln] predniSONE 10 mg PO DAILY@0800 10/16/20 10/16/20 Allergies Allergy/AdvReac Type Severity Reaction Status Date / Time aspirin AdvReac excessive Verified 10/16/20 20:14 brusing Review of Systems ROS Statement: Those systems with pertinent positive or pertinent negative responses have been documented in the HPI. ROS Other: All systems not noted in ROS Statement are negative. Past Medical History Past Medical History: COPD, Pneumonia, Respiratory Disorder Additional Past Medical History / Comment(s): cataracts(sx done), "bruises easily-thin fragile skin", lower dental bridge. History of Any Multi-Drug Resistant Organisms: MRSA Date of last positivie culture/infection: 07/24/19 MDRO Source:: MRSA SPUTUM Past Surgical History: Appendectomy, Tonsillectomy Additional Past Surgical History / Comment(s): Bilateral cataracts Past Anesthesia/Blood Transfusion Reactions: No Reported Reaction Past Psychological History: No Psychological Hx Reported Smoking Status: Former smoker Past Alcohol Use History: None Reported Past Drug Use History: None Reported - Past Family History Mother Family Medical History: Myocardial Infarction ([place]) Additional Family Medical History / Comment(s): Mother from a ruptured brain aneurysm, history of a heart attack Father Family Medical History: Diabetes Mellitus Additional Family Medical History / Comment(s): "heart problems" Father from bladder cancer , General Exam - General Exam Comments Initial Comments: This is a well-developed asthenic appearing female who is awake alert but slow to respond General appearance: lethargic Head exam: Present: atraumatic, normocephalic, normal inspection Eye exam: Present: normal appearance, PERRL, EOMI. Absent: scleral icterus, conjunctival injection, periorbital swelling ENT exam: Present: mucous membranes dry Neck exam: Present: normal inspection. Absent: tenderness, meningismus, lymphadenopathy Respiratory exam: Present: decreased breath sounds Cardiovascular Exam: Present: regular rate, normal rhythm, normal heart sounds. Absent: systolic murmur, diastolic murmur, rubs, gallop, clicks GI/Abdominal exam: Present: soft, normal bowel sounds. Absent: distended, tenderness, guarding, rebound, rigid Extremities exam: Present: normal inspection, full ROM, normal capillary refill. Absent: tenderness, pedal edema, joint swelling, calf tenderness Back exam: Present: normal inspection Neurological exam: Present: alert, oriented X3, CN II-XII intact Psychiatric exam: Present: normal affect, normal mood Skin exam: Present: warm, dry, intact, normal color. Absent: rash Course Vital Signs 10/16/20 10/16/20 19:00 19:47 Temperature 98.5 F Pulse Rate 98 Respiratory 18 Rate Blood Pressure 115/82 123/80 O2 Sat by Pulse 97 Oximetry Medical Decision Making - Medical Decision Making I did discuss Pfizer the patient and with Dr. Rodriguez patient does demonstrate evidence of upper lobe infiltrate as well as leukocytosis with left shift also dehydration patient be admitted with IV fluids IV antibiotics she is known: Positive - Lab Data Result diagrams: 10/16/20 19:39 10/16/20 19:39 Lab Results 10/16/20 10/16/20 10/16/20 Range/Units 19:39 19:39 19:39 WBC 19.5 H (3.8-10.6) k/uL RBC 4.38 (3.80-5.40) m/uL Hgb 13.3 (11.4-16.0) gm/dL Hct 39.2 (34.0-46.0) % MCV 89.7 (80.0-100.0) fL MCH 30.3 (25.0-35.0) pg MCHC 33.8 (31.0-37.0) g/dL RDW 14.2 (11.5-15.5) % Plt Count 218 (150-450) k/uL MPV 7.8 Neutrophils % 90 % Lymphocytes % 4 % Monocytes % 5 % Eosinophils % 0 % Basophils % 0 % Neutrophils # 17.4 H (1.3-7.7) k/uL Lymphocytes # 0.8 L (1.0-4.8) k/uL Monocytes # 1.0 (0-1.0) k/uL Eosinophils # 0.0 (0-0.7) k/uL Basophils # 0.1 (0-0.2) k/uL PT 10.6 (9.0-12.0) sec INR 1.0 (<1.2) APTT 21.9 L (22.0-30.0) sec Sodium 137 (137-145) mmol/L Potassium 4.6 (3.5-5.1) mmol/L Chloride 104 (98-107) mmol/L Carbon Dioxide 22 (22-30) mmol/L Anion Gap 11 mmol/L BUN 23 H (7-17) mg/dL Creatinine 0.40 L (0.52-1.04) mg/dL Est GFR (CKD-EPI)AfAm >90 (>60 ml/min/1.73 sqM) Est GFR (CKD-EPI)NonAf >90 (>60 ml/min/1.73 sqM) Glucose 115 H (74-99) mg/dL Plasma Lactic Acid Andres (0.7-2.0) mmol/L Calcium 9.9 (8.4-10.2) mg/dL Magnesium 1.7 (1.6-2.3) mg/dL Total Bilirubin 1.0 (0.2-1.3) mg/dL AST 25 (14-36) U/L ALT 11 (4-34) U/L Alkaline Phosphatase 71 (38-126) U/L Creatine Kinase <20 L (30-135) U/L Troponin I (0.000-0.034) ng/mL NT-Pro-B Natriuret Pep pg/mL Total Protein 6.4 (6.3-8.2) g/dL Albumin 3.2 L (3.5-5.0) g/dL 10/16/20 10/16/20 10/16/20 Range/Units 19:39 19:39 19:39 WBC (3.8-10.6) k/uL RBC (3.80-5.40) m/uL Hgb (11.4-16.0) gm/dL Hct (34.0-46.0) % MCV (80.0-100.0) fL MCH (25.0-35.0) pg MCHC (31.0-37.0) g/dL RDW (11.5-15.5) % Plt Count (150-450) k/uL MPV Neutrophils % % Lymphocytes % % Monocytes % % Eosinophils % % Basophils % % Neutrophils # (1.3-7.7) k/uL Lymphocytes # (1.0-4.8) k/uL Monocytes # (0-1.0) k/uL Eosinophils # (0-0.7) k/uL Basophils # (0-0.2) k/uL PT (9.0-12.0) sec INR (<1.2) APTT (22.0-30.0) sec Sodium (137-145) mmol/L Potassium (3.5-5.1) mmol/L Chloride (98-107) mmol/L Carbon Dioxide (22-30) mmol/L Anion Gap mmol/L BUN (7-17) mg/dL Creatinine (0.52-1.04) mg/dL Est GFR (CKD-EPI)AfAm (>60 ml/min/1.73 sqM) Est GFR (CKD-EPI)NonAf (>60 ml/min/1.73 sqM) Glucose (74-99) mg/dL Plasma Lactic Acid Andres 0.8 (0.7-2.0) mmol/L Calcium (8.4-10.2) mg/dL Magnesium (1.6-2.3) mg/dL Total Bilirubin (0.2-1.3) mg/dL AST (14-36) U/L ALT (4-34) U/L Alkaline Phosphatase (38-126) U/L Creatine Kinase (30-135) U/L Troponin I 0.023 (0.000-0.034) ng/mL NT-Pro-B Natriuret Pep 1840 pg/mL Total Protein (6.3-8.2) g/dL Albumin (3.5-5.0) g/dL - EKG Data -: EKG Interpreted by Ct EKG shows normal: sinus rhythm EKG Comments: Sinus tachycardia rate of 103. Interval 116 QRS duration 82 QT since QTC 360/471 left anterior fascicular block nonspecific ST-T wave configuration - Radiology Data Radiology results: report reviewed (Imaging reviewed evidence of increased markings in the upper lobes of the lungs. Finding of the diaphragms. Patient had complete report), image reviewed Disposition Clinical Impression: Bilateral upper lobe pneumonia due to Escherichia coli, COPD exacerbation, COVID-19, Dehydration, Failure to thrive Disposition: ADMITTED IP TO THIS HOSP Condition: Fair Referrals: Jabari Granado DO [Primary Care Provider] - 1-2 days
[2020-10-16] MEDS ORDERED: methylPREDNISolone SOD SUCCI 125 MG/2 ML VIAL IV STA (19:11)
[2020-10-16] MEDS ORDERED: ALBUTEROL HFA INHALER INHALATION STA (19:11)
[2020-10-16] MEDS: SODIUM CHLORIDE 0.9% 1,000 ML IV STA ×2 (19:43→22:49)
[2020-10-16 19:55] LABS: Basophils # (A) 0.1 k/uL (0-0.2); Basophils % (A) 0 %; Eosinophils % (A) 0 %; HCT 39.2 % (34.0-46.0); HGB 13.3 gm/dL (11.4-16.0); Lymphocytes # (A) 0.8 k/uL (1.0-4.8); Lymphocytes % (A) 4 %; MCH 30.3 pg (25.0-35.0); MCHC 33.8 g/dL (31.0-37.0); MCV 89.7 fL (80.0-100.0); Mean Platelet Volume 7.8; Monocytes % (A) 5 %; Neutrophils # (A) 17.4 k/uL (1.3-7.7); Neutrophils % (A) 90 %; Platelet Count 218 k/uL (150-450); RBC 4.38 m/uL (3.80-5.40); RDW 14.2 % (11.5-15.5); WBC 19.5 k/uL (3.8-10.6)
[2020-10-16 20:07] LABS: ALT 11 U/L (4-34); AST 25 U/L (14-36); African American GFR (CKD) >90 (>60 ml/min/1.73 sqM); Albumin 3.2 g/dL (3.5-5.0); Alkaline Phosphatase 71 U/L (38-126); Anion Gap 11 mmol/L; Blood Urea Nitrogen 23 mg/dL (7-17); Calcium 9.9 mg/dL (8.4-10.2); Carbon Dioxide 22 mmol/L (22-30); Chloride 104 mmol/L (98-107); Creatine Kinase <20 U/L (30-135); Glucose 115 mg/dL (74-99); Magnesium 1.7 mg/dL (1.6-2.3); Non-African American GFR(CKD) >90 (>60 ml/min/1.73 sqM); Sodium 137 mmol/L (137-145); Total Protein 6.4 g/dL (6.3-8.2)
--- NOTE | 2020-10-16 20:09 | XR ---
EXAMINATION TYPE: XR chest 2V DATE OF EXAM: 10/16/2020 COMPARISON: 09/11/2020 HISTORY: Short of breath TECHNIQUE: FINDINGS: Heart is normal. Lungs are clear of consolidation. There is coarsening of interstitial yves ings. There is flattening the diaphragm. There are no hilar masses. Thoracic aorta is atheromatous. T he bones are osteopenic. There is some anterior wedging of T12. There is 30% loss of height. IMPRESSION: COPD and pulmonary fibrosis. There is increased pulmonary interstitial density in the upp er lobes compared to old exam.
[2020-10-16] MEDS ORDERED: cefTRIAXone IN SWFI 1,000 MG/10 ML SYRINGE IVP STA (20:14)
[2020-10-16 20:19] LABS: Partial Thromboplastin Time 21.9 sec (22.0-30.0); Prothrombin Time 10.6 sec (9.0-12.0)
[2020-10-16 20:25] LABS: Potassium 4.6 mmol/L (3.5-5.1)
[2020-10-16] MEDS ORDERED: PNEUMONIA PROTOCOL UTILIZED 1 EACH MISC PO PRN (20:34)
[2020-10-16] MEDS ORDERED: AZITHROMYCIN 500 MG in SODIUM CHLORIDE 0.9% 250 ML IVPB STA (20:34)
[2020-10-16] MEDS ORDERED: ACETAMINOPHEN SUPPOSITORY 650 MG SUPP RECTAL PRN (20:36)
[2020-10-16] MEDS ORDERED: bisacodyL 10 MG SUPP RECTAL PRN (20:36)
[2020-10-16] MEDS ORDERED: SODIUM CHLORIDE 0.65% NASAL SPRAY 44 ML BTL INTRANASAL PRN (20:36)
[2020-10-16] MEDS ORDERED: MAGNESIUM HYDROXIDE 2,400 MG/10 ML CUP PO PRN (20:36)
[2020-10-16] MEDS: levETIRAcetam ORAL SOLN 500 MG/5 ML CUP PO SCH (22:50)
[2020-10-16] MEDS: SODIUM CHLORIDE 0.9% 1,000 ML IV SCH (23:02)
[2020-10-17] MEDS ORDERED: ALBUTEROL HFA INHALER INHALATION PRN (00:19)
[2020-10-17] MEDS: ALPRAZolam 0.25 MG TAB PO PRN ×2 (01:20→16:28)
[2020-10-17] MEDS: HYDROcodone/APAP 5-325MG 1 EACH TAB PO PRN ×2 (01:20→13:51)
[2020-10-17] MEDS ORDERED: ALBUTEROL NEBULIZED 2.5 MG/3 ML INHALATION SCH (02:00)
[2020-10-17] MEDS: SODIUM CHLORIDE 0.9% 1,000 ML IV SCH ×2 (05:34→16:29)
[2020-10-17] MEDS: LOSARTAN 25 MG TAB PO SCH (07:28)
[2020-10-17] MEDS: levETIRAcetam ORAL SOLN 500 MG/5 ML CUP PO SCH ×2 (07:28→20:23)
[2020-10-17] MEDS: AZITHROMYCIN 500 MG TAB PO SCH (07:28)
[2020-10-17] MEDS: LORATADINE 10 MG TAB PO SCH (07:28)
[2020-10-17] MEDS: PANTOPRAZOLE 40 MG TABLET PO SCH (07:29)
[2020-10-17] MEDS ORDERED: NON FORMULARY DRUG (Lactose-Reduced Food [Ensure Plus] 237 ML Liquid) PO SCH (08:00)
[2020-10-17] MEDS ORDERED: predniSONE 10 MG TAB PO SCH (08:00)
[2020-10-17] MEDS: ALBUTEROL HFA INHALER INHALATION SCH ×4 (08:47→21:01)
[2020-10-17] MEDS: SYMBICORT 160-4.5 MCG INHALER INHALATION SCH ×2 (08:47→21:01)
--- NOTE | 2020-10-17 09:15 | XR ---
EXAMINATION TYPE: XR chest 1V portable DATE OF EXAM: 10/17/2020 COMPARISON: 10/16/2020 INDICATION: Short of breath: TECHNIQUE: Single frontal view of the chest is obtained. FINDINGS: The heart size is normal. The pulmonary vasculature is somewhat prominent. There is peripheral infiltrate noted through the right upper lung field. Findings can be compatible w ith atypical pneumonia. There may be some improvement over the interval. IMPRESSION: 1. Peripheral scattered infiltrates can be compatible with atypical pneumonia. Slight improvement may be present.
[2020-10-17 12:58] LABS: Basophils % (A) 0 %; Eosinophils % (A) 0 %; HCT 38.9 % (34.0-46.0); HGB 12.5 gm/dL (11.4-16.0); Lymphocytes # (A) 0.5 k/uL (1.0-4.8); Lymphocytes % (A) 3 %; MCH 29.5 pg (25.0-35.0); MCHC 32.1 g/dL (31.0-37.0); MCV 91.9 fL (80.0-100.0); Mean Platelet Volume 8.1; Monocytes # (A) 0.8 k/uL (0-1.0); Monocytes % (A) 5 %; Neutrophils # (A) 14.5 k/uL (1.3-7.7); Neutrophils % (A) 90 %; Platelet Count 213 k/uL (150-450); RBC 4.24 m/uL (3.80-5.40); RDW 14.1 % (11.5-15.5); WBC 16.1 k/uL (3.8-10.6)
[2020-10-17] MEDS: dexAMETHasone 2 MG TAB PO SCH (13:51)
[2020-10-17] MEDS: ASCORBIC ACID 500 MG TAB PO SCH (13:51)
[2020-10-17] MEDS: CHOLECALCIFEROL 25 MCG (1000 IU) TABLET PO SCH (13:52)
[2020-10-17] MEDS: ZINC SULFATE 220 MG CAP PO SCH (13:52)
[2020-10-17 15:40] LABS: C Reactive Protein 15.9 mg/dL (<1.0)
--- NOTE | 2020-10-17 15:40 | P.HPIM ---
History of Present Illness H&P Date: 10/17/20 Chief Complaint: Shortness of breath History of presenting complaint: This is a 80-year-old patient, who was brought in from [facility]. Being followed by Dr. Granado. By the EMS report patient had been noticed to be increasingly short of breath for the day. Patient's pulse ox intra-abdominal 83%. At her baseline she uses 3 L of oxygen that was increased to 4 L. Pulse ox was 96% when the EMS arrived. Staff informed the patient tested positive for COVID on a PCR test. Patient is able to answer simple questions. Patient has not been walking as she feels rather tight. At baseline. She does eat some. Patient has a slight dry chronic cough. Denies any fever and chills. He stopped smoking 2 years ago. Review of systems: GEN.: Tired EYES: None HEENT: None NECK: None RESPIRATORY: As above CARDIOVASCULAR: None GASTROINTESTINAL: None GENITOURINARY: None MUSCULOSKELETAL: Joint pains, muscle weakness LYMPHATICS: None HEMATOLOGICAL: None PSYCHIATRY: Bit forgetful NEUROLOGICAL: None Past medical history to include: COPD, stroke, home oxygen 3 L, Social history: Patient smoking from the age of 16 up to 2 years ago. One pack a day. No alcohol. Currently at [facility]. Family history: Mother from a ruptured brain aneurysm. Coronary artery disease Physical examination: VITAL SIGNS: 98.5, 98, 18, 150/82, 97% on 3 L upon presentation GENERAL: BMI 17.3, very thin built with muscle wasting reclining in bed. EYES: Pupils equal. Conjunctiva normal. HEENT: External appearance of nose and ears normal, oral cavity grossly normal. NECK: JVD not raised; masses not palpable. HEART: First and second heart sounds are normal; no edema. LUNGS: Respiratory rate increased; diminished breath sounds occasional crackle. ABDOMEN: Soft, nontender, liver spleen not palpable, no masses palpable. PSYCH: Patient is able to answer simple questionsl. MUSCULAR skeletal: Diffuse wasting of muscles, muscle muscle mass, prominent bones, osteoarthritis NEUROLOGICAL: Cranial nerves grossly intact; no facial asymmetry, power and sensation grossly intact. LYMPHATICS: No lymph nodes palpable in the axilla and neck INVESTIGATIONS, reviewed in the clinical context: WBC 16.1, hemoglobin 12.5 platelets 213 potassium 4.6 BUN 23 creatinine 0.4 Troponin I 0.023 proBNP 1840 albumin 3.2 EKG tracing personally reviewed by me-normal sinus rhythm, 103 Chest x-ray film personally reviewed by me-hyperinflation. Tubular heart. Some infiltrates COVID PCR test reported positive from the [facility] Assessment and plan: -Bilateral COVID 19 pneumonia Dexamethasone 6 mg daily., Zinc, vitamin C, vitamin D. Consultation to ID. -Acute hypoxic respiratory failure from COVID 19 pneumonia. Pulse ox was reported to drop in the 80s at the [facility]. Supplement oxygen. -Acute exacerbation of advanced prednisone dependent COPD in a previous smoker Dexamethasone. Symbicort with spacer. Albuterol -Moderate protein calorie malnutrition from decreased oral intake Dietitian consult. Had ensure. -Chronic medical debility -Essential hypertension Cozaar 25 mg daily -GERD Protonix 40 mg daily Consult ID. Resume home medications. Dexamethasone, vitamin C, vitamin D. COVID-19 precautions. Oxygen supplementation Given the complexity and severity of patient's condition expect the patient to be in the hospital at least for 2 overnights Past Medical History Past Medical History: COPD, CVA/TIA, Pneumonia, Respiratory Disorder Additional Past Medical History / Comment(s): cataracts(sx done), "bruises easily-thin fragile skin", lower dental bridge, CVA September. History of Any Multi-Drug Resistant Organisms: MRSA Date of last positivie culture/infection: 07/24/19 MDRO Source:: MRSA SPUTUM Past Surgical History: Appendectomy, Tonsillectomy Additional Past Surgical History / Comment(s): Bilateral cataracts Past Anesthesia/Blood Transfusion Reactions: No Reported Reaction Past Psychological History: Anxiety Smoking Status: Former smoker Past Alcohol Use History: None Reported Additional Past Alcohol Use History / Comment(s): started smoking age 16 smoked 1 ppd Past Drug Use History: None Reported - Past Family History Mother Family Medical History: Myocardial Infarction ([place]) Additional Family Medical History / Comment(s): Mother from a ruptured brain aneurysm, history of a heart attack Father Family Medical History: Diabetes Mellitus Additional Family Medical History / Comment(s): "heart problems" Father from bladder cancer , Medications and Allergies Home Medications Medication Instructions Recorded Confirmed Type Loratadine [Claritin] 10 mg PO DAILY@0800 07/11/18 10/16/20 History Budesonide-Formot 160-4.5 Mcg 2 puff INHALATION RT-BID@0800,1700 06/28/19 10/16/20 History [Symbicort 160-4.5 Mcg Inhaler] ALPRAZolam [Xanax] 0.25 mg PO BID PRN 10/16/20 10/16/20 History Acetaminophen Suppository 1 dose RECTAL Q6H PRN 10/16/20 10/16/20 History HYDROcodone/APAP 5-325MG [[place] 1 tab PO Q6H PRN 10/16/20 10/16/20 History 5-325] Ipratropium-Albuterol Nebulize 3 ml INHALATION RT-Q6H PRN 10/16/20 10/16/20 History [Duoneb 0.5 mg-3 mg/3 ml Soln] Ipratropium-Albuterol Nebulize 3 ml INHALATION RT-QID 10/16/20 10/16/20 History [Duoneb 0.5 mg-3 mg/3 ml Soln] Lactose-Reduced Food [Ensure Plus] 1 can PO TID@0800,1200,1700 10/16/20 10/16/20 History Lidocaine 5% Patch [Lidoderm] 1 patch TOPICAL DAILY 10/16/20 10/16/20 History Losartan [Cozaar] 25 mg PO DAILY@0810/16/20 10/16/20 History Magnesium Hydroxide [Milk of 7,200 mg PO DAILY PRN 10/16/20 10/16/20 History Magnesia Concentrate] Na Phos,M-B/Na Phos,Di-Ba [Fleet 133 ml RECTAL DAILY PRN 10/16/20 10/16/20 History Adult] Pantoprazole [Protonix] 40 mg PO DAILY@0800 10/16/20 10/16/20 History Sodium Chloride [Saline Nasal 1 spray EA NOSTRIL Q2H PRN 10/16/20 10/16/20 History [place]] bisacodyL [Dulcolax] 10 mg RECTAL DAILY PRN 10/16/20 10/16/20 History fentaNYL 25MCG/HR PATCH [Duragesic 1 patch TRANSDERM Q72H 10/16/20 10/16/20 History 25MCG/HR] levETIRAcetam ORAL SOLN [Keppra 500 mg PO BID@0800,2100 10/16/20 10/16/20 History Oral Soln] predniSONE 10 mg PO DAILY@0800 10/16/20 10/16/20 History Allergies Allergy/AdvReac Type Severity Reaction Status Date / Time aspirin AdvReac excessive Verified 10/16/20 20:14 brusing Physical Exam Vitals: Vital Signs Temp Pulse Pulse Resp BP BP Pulse Ox 10/17/20 09:56 97.5 F L 92 18 122/82 98 10/17/20 07:24 97.9 F 73 119/75 100 10/17/20 01:07 97.7 F 85 16 135/86 99 10/16/20 22:30 18 10/16/20 21:52 98.2 F 89 16 122/76 99 10/16/20 21:27 98.9 F 87 17 128/82 97 10/16/20 19:47 123/80 10/16/20 19:07 98.3 F 97 20 123/78 97 10/16/20 19:00 98.5 F 98 18 115/82 97 Intake and Output 10/16/20 10/17/20 10/17/20 22:59 06:59 14:59 Other: Voiding Method Diaper # Voids 1 Weight 48.534 kg Results CBC & Chem 7: 10/17/20 12:40 10/16/20 19:39 Labs: Abnormal Lab Results - Last 24 Hours (Table) 10/16/20 10/16/20 10/16/20 Range/Units 19:39 19:39 19:39 WBC 19.5 H (3.8-10.6) k/uL Neutrophils # 17.4 H (1.3-7.7) k/uL Lymphocytes # 0.8 L (1.0-4.8) k/uL APTT 21.9 L (22.0-30.0) sec BUN 23 H (7-17) mg/dL Creatinine 0.40 L (0.52-1.04) mg/dL Glucose 115 H (74-99) mg/dL Creatine Kinase <20 L (30-135) U/L Albumin 3.2 L (3.5-5.0) g/dL Thrombosis Risk Factor Assmnt - Choose All That Apply Each Factor Represents 1 point: Sepsis (< 1month) Each Risk Factor Represents 2 Points: Patient confined to bed Each Risk Factor Represents 3 Points: Age 75 years or older Thrombosis Risk Factor Assessment Total Risk Factor Score: 6 Thrombosis Risk Factor Assessment Level: High Risk
[2020-10-17] MEDS: LIDOCAINE 5% PATCH TOPICAL SCH (16:23)
[2020-10-18] MEDS: SODIUM CHLORIDE 0.9% 1,000 ML IV SCH ×3 (02:26→23:23)
--- NOTE | 2020-10-18 07:21 | P.CONS ---
History of Present Illness - Reason for Consult Consult date: 10/17/20 covid pneumonia Requesting physician: Abdulkadir Rodriguez - Chief Complaint shortness of breath x few days - History of Present Illness Patient is a 80-[facility] female [facility] history of subdural hemorrhage and COPD and from the [facility] because of shortness of breath patient is on 3 L nasal cannula at the [facility] it has to be increased to 5 L and the patient was noticed to have a low pulse ox patient did have recent positive Covid test with the symptoms the patient was brought into the ER on arrival to the ER the patient was afebrile and no fever has been recorded subsequently documented O2 sat has been 97 200% currently on 3 L nasal cannula patient did have white count of 19.5 with a left shift creatinine was normal liver enzymes are normal inflammatory markers were not checked Covid testing was not done patient did have a chest x-ray COPD and pulmonary fibrosis this is increased pulmonary station density in the upper lobes compared with old exam patient was admitted to the hospital patient was started on Rocephin and Zithromax dexamethasone infectious disease was consulted for further management, patient overall is very poor historian and very hard of hearing patient is breathing comfortably however it is very hard to get any meaningful history from this patient. Review of Systems Positive point has been mentioned in HPI complete review could not be obtained because of underlying mental status Past Medical History Past Medical History: COPD, CVA/TIA, Pneumonia, Respiratory Disorder Additional Past Medical History / Comment(s): cataracts(sx done), "bruises easily-thin fragile skin", lower dental bridge, CVA September. History of Any Multi-Drug Resistant Organisms: MRSA Year Discovered:: 07/24/19 MDRO Source:: MRSA SPUTUM Past Surgical History: Appendectomy, Tonsillectomy Additional Past Surgical History / Comment(s): Bilateral cataracts Past Anesthesia/Blood Transfusion Reactions: No Reported Reaction Past Psychological History: Anxiety Smoking Status: Former smoker Past Alcohol Use History: None Reported Additional Past Alcohol Use History / Comment(s): started smoking age 16 smoked 1 ppd Past Drug Use History: None Reported - Past Family History Mother Family Medical History: Myocardial Infarction ([place]) Additional Family Medical History / Comment(s): Mother from a ruptured brain aneurysm, history of a heart attack Father Family Medical History: Diabetes Mellitus Additional Family Medical History / Comment(s): "heart problems" Father from bladder cancer , Medications and Allergies Home Medications Medication Instructions Recorded Confirmed Type Loratadine [Claritin] 10 mg PO DAILY@0800 07/11/18 10/16/20 History Budesonide-Formot 160-4.5 Mcg 2 puff INHALATION RT-BID@0800,1700 06/28/19 10/16/20 History [Symbicort 160-4.5 Mcg Inhaler] ALPRAZolam [Xanax] 0.25 mg PO BID PRN 10/16/20 10/16/20 History Acetaminophen Suppository 1 dose RECTAL Q6H PRN 10/16/20 10/16/20 History HYDROcodone/APAP 5-325MG [[place] 1 tab PO Q6H PRN 10/16/20 10/16/20 History 5-325] Ipratropium-Albuterol Nebulize 3 ml INHALATION RT-Q6H PRN 10/16/20 10/16/20 History [Duoneb 0.5 mg-3 mg/3 ml Soln] Ipratropium-Albuterol Nebulize 3 ml INHALATION RT-QID 10/16/20 10/16/20 History [Duoneb 0.5 mg-3 mg/3 ml Soln] Lactose-Reduced Food [Ensure Plus] 1 can PO TID@0800,1200,1700 10/16/20 10/16/20 History Lidocaine 5% Patch [Lidoderm] 1 patch TOPICAL DAILY 10/16/20 10/16/20 History Losartan [Cozaar] 25 mg PO DAILY@0810/16/20 10/16/20 History Magnesium Hydroxide [Milk of 7,200 mg PO DAILY PRN 10/16/20 10/16/20 History Magnesia Concentrate] Na Phos,M-B/Na Phos,Di-Ba [Fleet 133 ml RECTAL DAILY PRN 10/16/20 10/16/20 History Adult] Pantoprazole [Protonix] 40 mg PO DAILY@0800 10/16/20 10/16/20 History Sodium Chloride [Saline Nasal 1 spray EA NOSTRIL Q2H PRN 10/16/20 10/16/20 History [place]] bisacodyL [Dulcolax] 10 mg RECTAL DAILY PRN 10/16/20 10/16/20 History fentaNYL 25MCG/HR PATCH [Duragesic 1 patch TRANSDERM Q72H 10/16/20 10/16/20 History 25MCG/HR] levETIRAcetam ORAL SOLN [Keppra 500 mg PO BID@0800,2100 10/16/20 10/16/20 History Oral Soln] predniSONE 10 mg PO DAILY@0800 10/16/20 10/16/20 History Allergies Allergy/AdvReac Type Severity Reaction Status Date / Time aspirin AdvReac excessive Verified 10/16/20 20:14 brusing Physical Exam Vitals: Vital Signs Temp Pulse Resp BP BP Pulse Ox 10/17/20 23:00 97.6 F 74 14 130/68 99 10/17/20 21:02 96 10/17/20 20:00 77 16 10/17/20 19:47 97.6 F 77 16 100/52 100 10/17/20 14:00 97.6 F 87 18 108/61 94 L 10/17/20 09:56 97.5 F L 92 18 122/82 98 10/17/20 07:24 97.9 F 73 119/75 100 10/17/20 01:07 97.7 F 85 16 135/86 99 Intake and Output 10/17/20 10/17/20 10/18/20 14:59 22:59 06:59 Other: Voiding Method Diaper Diaper Incontinent Incontinent # Voids 1 # Bowel Movements 1 GENERAL DESCRIPTION: Elderly female lying in bed, no distress. No tachypnea or accessory muscle of respiration use. HEENT: Shows Pallor , no scleral icterus. Oral mucous membrane is dry. NECK: Trachea central, no thyromegaly. LUNGS: Unlabored breathing. Decrease intensity of breath sounds. No wheeze or crackle. HEART: S1, S2, regular rate and rhythm. ABDOMEN: Soft, no tenderness , guarding or rigidity EXTREMITIES: No edema of feet. SKIN: No rash, no masses palpable. NEUROLOGICAL: The patient is awake, alert, very hard of hearing orientation could not be determined Results CBC & Chem 7: 10/17/20 12:40 10/16/20 19:39 Labs: Abnormal Lab Results - Last 24 Hours (Table) 10/17/20 10/17/20 Range/Units 12:40 14:47 WBC 16.1 H (3.8-10.6) k/uL Neutrophils # 14.5 H (1.3-7.7) k/uL Lymphocytes # 0.5 L (1.0-4.8) k/uL C-Reactive Protein 15.9 H (<1.0) mg/dL Microbiology - Last 24 Hours (Table) 10/16/20 19:44 Blood Culture - Preliminary Blood No Growth after 24 hours 10/16/20 19:28 Blood Culture - Preliminary Blood No Growth after 24 hours Assessment and Plan Assessment: 1-patient presented to hospital with increasing shortness of breath and increased requirement of O2 sats at the [facility] however patient is currently down to her baseline 3 L and is satting 9700% patient did not have any fever inflammatory markers has not been checked did have elevated white count and some increasing infiltrate with a question of viral versus bacterial pneumonia (1) COVID-19 Current Visit: Yes Status: Acute Code(s): U07.1 - COVID-19 SNOMED Code(s): 345356220 Plan: 1-we will check SARS-CoV-2 nasopharyngeal swab and antibodies 2-check a CRP procalcitonin LDH and D-dimer 3-continue with the dexamethasone ascorbic acid zinc antibiotic antibiotics We will follow on clinical condition and cultures to further adjust medication if needed Thank you for this consultation we will follow the patient along with you Time with Patient: Greater than 30
[2020-10-18] MEDS: ALBUTEROL HFA INHALER INHALATION SCH ×4 (08:01→21:44)
[2020-10-18] MEDS: SYMBICORT 160-4.5 MCG INHALER INHALATION SCH ×2 (08:02→16:10)
[2020-10-18] MEDS: LOSARTAN 25 MG TAB PO SCH (09:10)
[2020-10-18] MEDS: dexAMETHasone 2 MG TAB PO SCH (09:10)
[2020-10-18] MEDS: ASCORBIC ACID 500 MG TAB PO SCH (09:11)
[2020-10-18] MEDS: LORATADINE 10 MG TAB PO SCH (09:11)
[2020-10-18] MEDS: levETIRAcetam ORAL SOLN 500 MG/5 ML CUP PO SCH ×2 (09:11→22:54)
[2020-10-18] MEDS: PANTOPRAZOLE 40 MG TABLET PO SCH (09:11)
[2020-10-18] MEDS: ZINC SULFATE 220 MG CAP PO SCH (09:11)
[2020-10-18] MEDS: CHOLECALCIFEROL 25 MCG (1000 IU) TABLET PO SCH (09:11)
[2020-10-18] MEDS: AZITHROMYCIN 500 MG TAB PO SCH (09:11)
[2020-10-18 11:06] LABS: Basophils # (A) 0.05 X 10*3/uL (0.00-0.10); Basophils % (A) 0.3 %; Eosinophils # (A) 0 X 10*3/uL (0.04-0.35); Eosinophils % (A) 0 %; HCT 36.8 % (37.2-46.3); HGB 11.3 g/dL (12.0-15.0); Lymphocytes # (A) 1.12 X 10*3/uL (0.90-5.00); Lymphocytes % (A) 5.7 %; MCH 28.6 pg (27.0-32.0); MCHC 30.7 g/dL (32.0-37.0); MCV 93.2 fL (80.0-97.0); Monocytes # (A) 1.09 X 10*3/uL (0.20-1.00); Monocytes % (A) 5.5 %; Neutrophils # (A) 17.11 X 10*3/uL (1.80-7.70); Neutrophils % (A) 86.3 %; Platelet Count 162 X 10*3/uL (140-440); RBC 3.95 X 10*6/uL (4.10-5.20)
[2020-10-18 12:25] LABS: African American GFR (CKD) 114.8 (60.0-200.0); Albumin 3.2 g/dL (3.80-4.90); Albumin/Globulin Ratio 1.23 (1.60-3.17); Anion Gap 9.7 mmol/L (4.00-12.00); C Reactive Protein 6.7 mg/dL (0.0-0.8); Calcium 9.2 mg/dL (8.7-10.3); Carbon Dioxide 22.3 mmol/L (21.6-31.8); Globulin 2.6 g/dL (1.6-3.3); Non-African American GFR(CKD) 99.1 (60.0-200.0); Potassium 4.2 mmol/L (3.5-5.5); Total Bilirubin 0.2 mg/dL (0.3-1.2); Total Protein 5.8 g/dL (6.2-8.2)
--- NOTE | 2020-10-18 13:06 | CT ---
EXAMINATION TYPE: CT chest angio for PE DATE OF EXAM: 10/18/2020 COMPARISON: CT chest 09/03/2019 HISTORY: 80-year-old female SOB. Elevated D-dimer TECHNIQUE: Contiguous axial scanning of the chest performed with IV Contrast, patient injected with 1 00 ml mL of Isovue 370. Coronal/sagittal MIP reconstructions performed. CT DLP: 145.5 mGycm Automated exposure control for dose reduction was used. FINDINGS: Heart upper limits of normal in size without pericardial effusion. No flattening of the interventricu lar septum or reflux of contrast into the hepatic veins. Borderline ectatic 3.5 cm aortic root. Conventional arch was a branching anatomy. Scattered mild athe rosclerotic change. Satisfactory opacification of the pulmonary arterial system. Enlarged right and left main pulmonary a rteries at 3.0 and 2.8 cm, respectively, compatible with pulmonary hypertension. On the right, there is right upper lobe segmental, subsegmental branch emboli. Additional segmental o r subsegmental right lower lobe branch emboli. On the left, superior and inferior lingular segmental and subsegmental branch emboli. No thoracic lymphadenopathy by CT size criteria. Layering secretions/debris within the lower trachea. Trace to small effusions, left greater than right. Moderate to advanced emphysema. No bulla or pneuma tocele anterior right upper lobe measuring 7.3 cm. Surrounding patchy opacity. Slightly more focal ir regular opacity along the posterior margin measuring 1.5 x 0.9 cm, axial image 42. Distortion in the right midlung level at the site of previous cavitary change and infiltrate, probabl e scarring. Limited assessment of the upper abdomen. Bones: Mild superior and inferior endplate compression deformities of T12 of indeterminate age, new f rom 09/03/2019. No significant surrounding soft tissue swelling is seen. Accentuated thoracic kyphosis . IMPRESSION: 1. EXAM POSITIVE FOR BILATERAL ACUTE PULMONARY EMBOLI WITH MILD TO MODERATE BURDEN. THERE IS INVOLVEM ENT OF RUL LOBAR AND SEGMENTAL BRANCHES, RLL SEGMENTAL AND SUBSEGMENTAL BRANCHES, AND LINGULAR SEGMEN LUCRECIA AND SUBSEGMENTAL BRANCHES. NO CT EVIDENCE FOR RIGHT HEART STRAIN. 2. HOWEVER, THERE IS PULMONARY ARTERIAL HYPERTENSION. GIVEN SMALL EFFUSIONS, CORRELATE TO EXCLUDE MIL D PULMONARY VASCULAR CONGESTION. 3. NEW PNEUMATOCELE VERSUS BULLA IN THE RIGHT UPPER LOBE. SOME SURROUNDING PATCHY OPACITY IS PRESENT AND UNDERLYING PNEUMONIA IS NOT EXCLUDED. 4. A MORE IRREGULAR OPACITY ALONG THE POSTERIOR MARGIN MEASURES 1.5 X 0.[address] CM. FOLLOW-UP CT IN 3 MONTH S TO ENSURE RESOLUTION AND TO EXCLUDE EARLY NEOPLASM. 5. AGE INDETERMINATE BUT SUSPECTED CHRONIC T12 COMPRESSION DEFORMITY, (THOUGH NOTED TO BE NEW FROM ). CLINICALLY CORRELATE.
[2020-10-18] MEDS: RIVAROXABAN 15 MG TAB PO SCH ×2 (14:00→17:51)
[2020-10-18] MEDS: LIDOCAINE 5% PATCH TOPICAL SCH (14:01)
[2020-10-18 14:33] VITALS: BMI 17.2
--- NOTE | 2020-10-18 19:07 | P.PN ---
Progress Note - Text Progress Note Date: 10/18/20 Chief Complaint: Shortness of breath History of presenting complaint: This is a 80-year-old patient, who was brought in from [facility]. Being followed by Dr. Granado. By the EMS report patient had been noticed to be increasingly short of breath for the day. Patient's pulse ox intra-abdominal 83%. At her baseline she uses 3 L of oxygen that was increased to 4 L. Pulse ox was 96% when the EMS arrived. Staff informed the patient tested positive for COVID on a PCR test. Patient is able to answer simple questions. Patient has not been walking as she feels rather tight. At baseline. She does eat some. Patient has a slight dry chronic cough. Denies any fever and chills. He stopped smoking 2 years ago. October 18: Computed tomography scan of the chest today showed bilateral pulmonary embolism. Patient sitting up in bed. Comfortable. Pulse ox 99% on 3 L. Started on xarelto. Eating 25-50% Review of systems: Was done for constitutional, cardiovascular, GI, pulmonary. relevant finding as above Active Medications Acetaminophen (Acetaminophen Suppository 650 Mg Supp) 650 mg RECTAL Q6H PRN PRN Reason: Pain or Fever > 100.5 Hydrocodone Bitart/Acetaminophen (Hydrocodone/Apap 5-325mg 1 Each Tab) 1 each PO Q6H PRN PRN Reason: Pain Last Admin: 10/17/20 13:51 Dose: 1 each Documented by: Albuterol Sulfate (Albuterol Hfa Inhaler) 2 puff INHALATION RT-QID [facility] Last Admin: 10/18/20 16:10 Dose: 2 puff Documented by: Albuterol Sulfate (Albuterol Hfa Inhaler) 2 puff INHALATION RT-QID PRN PRN Reason: Shortness Of Breath Or Wheezing Alprazolam (Alprazolam 0.25 Mg Tab) 0.25 mg PO BID PRN PRN Reason: ANXIETY, UNTIL 10/26/20 Last Admin: 10/17/20 16:28 Dose: 0.25 mg Documented by: Ascorbic Acid (Ascorbic Acid 500 Mg Tab) 1,000 mg PO DAILY [facility] Last Admin: 10/18/20 09:11 Dose: 1,000 mg Documented by: Azithromycin (Azithromycin 500 Mg Tab) 500 mg PO DAILY [facility] Stop: 10/19/20 09:01 Last Admin: 10/18/20 09:11 Dose: 500 mg Documented by: Bisacodyl (Bisacodyl 10 Mg Supp) 10 mg RECTAL DAILY PRN PRN Reason: Constipation Budesonide/Formoterol Fumarate (Symbicort 160-4.5 Mcg Inhaler) 2 puff INHALATION RT-BID@0800,1700 [facility] Last Admin: 10/18/20 16:10 Dose: 2 puff Documented by: Cholecalciferol (Cholecalciferol 25 Mcg (1000 Iu) Tablet) 100 mcg PO DAILY [facility] Last Admin: 10/18/20 09:11 Dose: 100 mcg Documented by: Dexamethasone (Dexamethasone 2 Mg Tab) 6 mg PO DAILY [facility] Last Admin: 10/18/20 09:10 Dose: 6 mg Documented by: Fentanyl (Fentanyl 25mcg/Hr Patch) 1 patch TRANSDERM Q72H [facility]; Protocol Last Admin: 10/17/20 07:40 Dose: Not Given Documented by: Sodium Chloride (Saline 0.9%) 1,000 mls @ 100 mls/hr IV .Q10H [facility] Last Admin: 10/18/20 02:26 Dose: 100 mls/hr Documented by: Ceftriaxone Sodium 2 gm/ (Sodium Chloride) 50 mls @ 100 mls/hr IVPB Q24H [facility] Last Admin: 10/17/20 20:23 Dose: 100 mls/hr Documented by: Levetiracetam (Levetiracetam Oral Soln 500 Mg/5 Ml Cup) 500 mg PO BID@0800,2100 [facility] Last Admin: 10/18/20 09:11 Dose: 500 mg Documented by: Lidocaine (Lidocaine 5% Patch) 1 patch TOPICAL DAILY@1600 [facility]; Protocol Last Admin: 10/18/20 14:01 Dose: 1 patch Documented by: Loratadine (Loratadine 10 Mg Tab) 10 mg PO DAILY@0800 [facility] Last Admin: 10/18/20 09:11 Dose: 10 mg Documented by: Losartan Potassium (Losartan 25 Mg Tab) 25 mg PO DAILY@0800 [facility] Last Admin: 10/18/20 09:10 Dose: 25 mg Documented by: Magnesium Hydroxide (Magnesium Hydroxide 2,400 Mg/10 Ml Cup) 2,400 mg PO DAILY PRN PRN Reason: Constipation Miscellaneous Information (Pneumonia Protocol Utilized 1 Each Misc) 1 each PO ONCE PRN PRN Reason: Per Protocol Pantoprazole Sodium (Pantoprazole 40 Mg Tablet) 40 mg PO DAILY@0800 [facility] Last Admin: 10/18/20 09:11 Dose: 40 mg Documented by: Rivaroxaban (Rivaroxaban 15 Mg Tab) 15 mg PO BID-W/MEALS [facility]; Protocol Last Admin: 10/18/20 17:51 Dose: 15 mg Documented by: Sodium Chloride (Sodium Chloride 0.65% Nasal Mobile 44 Ml Btl) 1 spray INTRANASAL Q2H PRN PRN Reason: Congestion Zinc Sulfate (Zinc Sulfate 220 Mg Cap) 220 mg PO DAILY [facility] Last Admin: 10/18/20 09:11 Dose: 220 mg Documented by: Past medical history to include: COPD, stroke, home oxygen 3 L, Social history: Patient smoking from the age of 16 up to 2 years ago. One pack a day. No alcohol. Currently at [facility]. Family history: Mother from a ruptured brain aneurysm. Coronary artery disease Physical examination: VITAL SIGNS: 98.2, 77, 19, 138/80, 96% on 3 L GENERAL: Reclining in bed, comfortable very thin built with muscle wasting EYES: Pupils equal. Conjunctiva normal. HEENT: External appearance of nose and ears normal, oral cavity grossly normal. NECK: JVD not raised; masses not palpable. HEART: First and second heart sounds are normal; no edema. LUNGS: Respiratory rate increased; diminished breath sounds occasional crackle. ABDOMEN: Soft, nontender, liver spleen not palpable, no masses palpable. PSYCH: Patient is able to answer simple questions MUSCULAR skeletal: Diffuse wasting of muscles, muscle muscle mass, prominent bones, osteoarthritis INVESTIGATIONS, reviewed in the clinical context: October 18: WBC 19.8 hemoglobin 11.3 platelets 162 potassium 4.2 creatinine 0.4 d- dimer 6.69. Pro-calcitonin 0.09 Coronavirus [PCR]: Detected CT chest: Bilateral pulmonary embolism. Pulmonary arterial hypertension. New pneumatocele. More irregular opacity lump posterior margin 1.5 x 0.9 cm. T12 compression deformity. WBC 16.1, hemoglobin 12.5 platelets 213 potassium 4.6 BUN 23 creatinine 0.4 Troponin I 0.023 proBNP 1840 albumin 3.2 EKG tracing personally reviewed by me-normal sinus rhythm, 103 Chest x-ray film personally reviewed by me-hyperinflation. Tubular heart. Some infiltrates COVID PCR test reported positive from the [facility] Assessment and plan: -Bilateral COVID 19 pneumonia Dexamethasone 6 mg daily., Zinc, vitamin C, vitamin D. Follow with ID. -Acute bilateral pulmonary embolism *Xarelto -Questionable lung mass and new pneumatocele Consult pulmonary -Acute hypoxic respiratory failure from COVID 19 pneumonia.: Better Pulse ox was reported to drop in the 80s at the ECF. Supplement oxygen. -Acute exacerbation of advanced prednisone dependent COPD in a previous smoker Dexamethasone. Symbicort with spacer. Albuterol -Moderate protein calorie malnutrition from decreased oral intake Dietitian consult. Had ensure. -Chronic medical debility -Essential hypertension Cozaar 25 mg daily -GERD Protonix 40 mg daily Patient started on Xarelto today. Consult pulmonary. Other medications to continue. Prognosis guarded. Supplement oxygen.
[2020-10-18] MEDS ORDERED: REMDESIVIR 200 MG in SODIUM CHLORIDE 0.9% 250 ML IVPB ONE (22:00)
[2020-10-18] MEDS: ALPRAZolam 0.25 MG TAB PO PRN (22:53)
[2020-10-19 06:41] LABS: C Reactive Protein 7.2 mg/dL (<1.0)
--- NOTE | 2020-10-19 07:44 | PN ---
PROGRESS NOTE DATE OF SERVICE: 10/18/2020 REASON FOR FOLLOWUP: COVID-19 pneumonia. INTERVAL HISTORY: Patient is afebrile. The patient is breathing slightly comfortably. The patient denies having any chest pain, cough, but not bringing up any sputum. No nausea, vomiting, abdominal pain or diarrhea. PHYSICAL EXAMINATION: Blood pressure 147/68 with a pulse of 106, temperature 98.4. She is 93% on 3 L nasal cannula. General description is an elderly female lying in bed in no distress. Respiratory system: Unlabored breathing, decreased intensity in the breath sounds. No wheeze. Heart S1, S2. Regular rate and rhythm. Abdomen soft, no tenderness. LABS: Hemoglobin 11.1, white count 19.0. 6.69, creatinine 0.4. Scott PCR came back positive. DIAGNOSTIC IMPRESSION AND PLAN: Patient admitted to the hospital with hypoxemia, shortness of breath, which is multifactorial in this patient who did have acute COVID-19 pneumonia with of a pulmonary embolism bilateral. Xarelto has been started with symptom onset of 2 days. She has been admitted for the started in addition to the dexamethasone, zinc, ascorbic acid. We will repeat tomorrow. If remains to be normal, we will antibiotics and monitor clinical course closely. MANNIEL / JIMN: [id number] /
[2020-10-19] MEDS: ALBUTEROL HFA INHALER INHALATION SCH ×4 (08:29→21:07)
[2020-10-19] MEDS: SYMBICORT 160-4.5 MCG INHALER INHALATION SCH ×2 (08:29→21:07)
[2020-10-19] MEDS: levETIRAcetam ORAL SOLN 500 MG/5 ML CUP PO SCH ×2 (09:29→21:47)
[2020-10-19] MEDS: CHOLECALCIFEROL 25 MCG (1000 IU) TABLET PO SCH (09:29)
[2020-10-19] MEDS: PANTOPRAZOLE 40 MG TABLET PO SCH (09:30)
[2020-10-19] MEDS: LOSARTAN 25 MG TAB PO SCH (09:30)
[2020-10-19] MEDS: ASCORBIC ACID 500 MG TAB PO SCH (09:30)
[2020-10-19] MEDS: dexAMETHasone 2 MG TAB PO SCH (09:30)
[2020-10-19] MEDS: LORATADINE 10 MG TAB PO SCH (09:30)
[2020-10-19] MEDS: AZITHROMYCIN 500 MG TAB PO SCH (09:30)
[2020-10-19] MEDS: RIVAROXABAN 15 MG TAB PO SCH ×2 (09:30→16:38)
[2020-10-19] MEDS: ZINC SULFATE 220 MG CAP PO SCH (09:30)
--- NOTE | 2020-10-19 10:48 | P.CNPUL ---
History of Present Illness Consult date: 10/19/20 Requesting physician: Abdulkadir Rodriguez Reason for consult: dyspnea, hypoxemia, pneumonia, pulmonary embolism, abnormal CXR/CT Chief complaint: Shortness of breath. History of present illness: Pulmonary/critical care consultation, dated 10/19/2020. 80-year-old female, seen in the emergency department on 10/16/2020. She was apparently brought there by EMS. She came in with complaints of shortness of breath. She is not a particularly good historian. She does have a history of severe stage III COPD with an FEV1 that is 49% of predicted. The patient is chronically on oxygen therapy. In addition, the patient was found to be positive for coronavirus infection, and COVID 19 pneumonia. We'll only received the consultation on this patient today. The patient is extremely hard of hearing. The evaluation was difficult because of her deafness. It's unclear to me how long she has been feeling poorly. She was not able to articulate when she first felt sick. She was started on REM, by the infectious disease doctor, so I am assuming, that her symptoms have been present for 7 days or less. Laboratory data recently includes a white count of 19.8, hemoglobin 11.3, hematocrit 36.8, and a platelet count of 162,000. Her d-dimer was initially 6.69, and is now 3.99. Sodium 142, potassium 4.2, chlorides 110, CO2 22, anion gap 9.7, BUN 20, and creatinine 0.4. C-reactive protein was 15.9, and is now down to 7.2. Pro-calcitonin level is low at 0.09. CT angiogram showed bilateral acute pulmonary emboli with mild to moderate burden. There was no evidence of right heart strain. There is evidence of pulmonary arterial hypertension, pneumatic serial, versus bulla, and the right upper lobe, and irregular opacity along the posterior margins measuring 1.5 x 0.9 cm, and age indeterminate but suspected chronic T12 compression deformity. The patient has already been started on Xarelto. Review of Systems REVIEW OF SYSTEMS: CONSTITUTIONAL: [Negative.] NEUROLOGIC: [ Negative.] HEENT: [ Negative.] CARDIAC: [Negative.] PULMONARY: Shortness of breath. GI: [Negative.] : [Negative.] RHEUMATOLOGIC: [ Negative.] IMMUNOLOGIC: [ Negative.] ENDOCRINE: [Negative. ] DERMATOLOGIC: [Negative.] Past Medical History Past Medical History: COPD, CVA/TIA, Pneumonia, Respiratory Disorder Additional Past Medical History / Comment(s): cataracts(sx done), "bruises easily-thin fragile skin", lower dental bridge, CVA September. History of Any Multi-Drug Resistant Organisms: MRSA Date of last positivie culture/infection: 07/24/19 MDRO Source:: MRSA SPUTUM Past Surgical History: Appendectomy, Tonsillectomy Additional Past Surgical History / Comment(s): Bilateral cataracts Past Anesthesia/Blood Transfusion Reactions: No Reported Reaction Past Psychological History: Anxiety Smoking Status: Former smoker Past Alcohol Use History: None Reported Additional Past Alcohol Use History / Comment(s): started smoking age 16 smoked 1 ppd Past Drug Use History: None Reported - Past Family History Mother Family Medical History: Myocardial Infarction ([place]) Additional Family Medical History / Comment(s): Mother from a ruptured brain aneurysm, history of a heart attack Father Family Medical History: Diabetes Mellitus Additional Family Medical History / Comment(s): "heart problems" Father from bladder cancer , Medications and Allergies Home Medications Medication Instructions Recorded Confirmed Type Loratadine [Claritin] 10 mg PO DAILY@0800 07/11/18 10/16/20 History Budesonide-Formot 160-4.5 Mcg 2 puff INHALATION RT-BID@0800,1700 06/28/19 10/16/20 History [Symbicort 160-4.5 Mcg Inhaler] ALPRAZolam [Xanax] 0.25 mg PO BID PRN 10/16/20 10/16/20 History Acetaminophen Suppository 1 dose RECTAL Q6H PRN 10/16/20 10/16/20 History HYDROcodone/APAP 5-325MG [[place] 1 tab PO Q6H PRN 10/16/20 10/16/20 History 5-325] Ipratropium-Albuterol Nebulize 3 ml INHALATION RT-Q6H PRN 10/16/20 10/16/20 History [Duoneb 0.5 mg-3 mg/3 ml Soln] Ipratropium-Albuterol Nebulize 3 ml INHALATION RT-QID 10/16/20 10/16/20 History [Duoneb 0.5 mg-3 mg/3 ml Soln] Lactose-Reduced Food [Ensure Plus] 1 can PO TID@0800,1200,1700 10/16/20 10/16/20 History Lidocaine 5% Patch [Lidoderm] 1 patch TOPICAL DAILY 10/16/20 10/16/20 History Losartan [Cozaar] 25 mg PO DAILY@0800 10/16/20 10/16/20 History Magnesium Hydroxide [Milk of 7,200 mg PO DAILY PRN 10/16/20 10/16/20 History Magnesia Concentrate] Na Phos,M-B/Na Phos,Di-Ba [Fleet 133 ml RECTAL DAILY PRN 10/16/20 10/16/20 History Adult] Pantoprazole [Protonix] 40 mg PO DAILY@0800 10/16/20 10/16/20 History Sodium Chloride [Saline Nasal 1 spray EA NOSTRIL Q2H PRN 10/16/20 10/16/20 History [place]] bisacodyL [Dulcolax] 10 mg RECTAL DAILY PRN 10/16/20 10/16/20 History fentaNYL 25MCG/HR PATCH [Duragesic 1 patch TRANSDERM Q72H 10/16/20 10/16/20 History 25MCG/HR] levETIRAcetam ORAL SOLN [Keppra 500 mg PO BID@0800,2100 10/16/20 10/16/20 History Oral Soln] predniSONE 10 mg PO DAILY@0800 10/16/20 10/16/20 History Allergies Allergy/AdvReac Type Severity Reaction Status Date / Time aspirin AdvReac excessive Verified 10/16/20 20:14 brusing Physical Exam Osteopathic Statement: *. No significant issues noted on an osteopathic structural exam other than those noted in the History and Physical/Consult. Vitals: Vital Signs Temp Pulse Resp BP Pulse Ox 10/19/20 09:39 99.2 F 103 H 23 157/87 94 L 10/19/20 07:00 86 17 10/19/20 05:58 98.2 F 86 17 167/87 93 L 10/19/20 01:55 98.6 F 66 16 136/83 10/18/20 22:00 97.7 F 87 18 175/79 96 10/18/20 20:00 107 H 23 10/18/20 19:00 97 10/18/20 18:00 98.4 F 107 H 23 147/68 93 L 10/18/20 14:02 98.2 F 77 19 138/80 96 Intake and Output 10/18/20 10/19/20 10/19/20 22:59 06:59 14:59 Intake Total 240 Balance 240 Intake: Oral 240 Other: Voiding Method Diaper Diaper Incontinent Incontinent # Voids 2 2 # Bowel Movements 1 2 No acute distress, extremely hard of hearing, on 3 L nasal cannula with saturations of 94%, without evidence of use of accessory muscles, or conversational dyspnea. HEENT examination is grossly unremarkable. Neck supple. Full range of motion. No adenopathy thyromegaly or neck vein distention. Cardiovascular examination reveals regular rhythm rate. S1-S2 normal. No S3 or S4. No discernible murmur noted. Heart sounds are distant. Heart rate 97 bpm. Lungs reveal bilateral rhonchi. No wheezes or crackles. The patient does not take deep breaths. Breath sounds are equal bilaterally. Abdomen soft bowel sounds are heard. No masses or tenderness. Extremities are intact. No cyanosis clubbing or edema. Skin is without rash or lesion. Neurologic examination is brief but nonfocal. Results - Laboratory Findings CBC and BMP: 10/18/20 07:44 10/18/20 07:44 PT/INR, D-dimer PT 10.6 sec (9.0-12.0) 10/16/20 19:39 INR 1.0 (<1.2) 10/16/20 19:39 D-Dimer 3.99 mg/L FEU (<0.60) H 10/19/20 05:43 Abnormal lab findings: Abnormal Labs 10/16/20 10/16/20 10/16/20 19:39 19:39 19:39 WBC 19.5 H RBC Hgb Hct MCHC RDW Immature Gran # Neutrophils # 17.4 H Lymphocytes # 0.8 L Monocytes # Eosinophils # APTT 21.9 L D-Dimer Chloride BUN 23 H Creatinine 0.40 L BUN/Creatinine Ratio Glucose 115 H Total Bilirubin Creatine Kinase <20 L C-Reactive Protein Total Protein Albumin 3.2 L Albumin/Globulin Ratio Coronavirus (PCR) 10/17/20 10/17/20 10/17/20 12:40 14:47 16:50 WBC 16.1 H RBC Hgb Hct MCHC RDW Immature Gran # Neutrophils # 14.5 H Lymphocytes # 0.5 L Monocytes # Eosinophils # APTT D-Dimer Chloride BUN Creatinine BUN/Creatinine Ratio Glucose Total Bilirubin Creatine Kinase C-Reactive Protein 15.9 H Total Protein Albumin Albumin/Globulin Ratio Coronavirus (PCR) Detected A 10/18/20 10/18/20 10/18/20 07:44 07:44 07:44 WBC 19.80 H RBC 3.95 L Hgb 11.3 L Hct 36.8 L MCHC 30.7 L RDW 15.0 H Immature Gran # 0.43 H Neutrophils # 17.11 H Lymphocytes # Monocytes # 1.09 H Eosinophils # 0 L APTT D-Dimer 6.69 H Chloride 110 H BUN Creatinine 0.4 L BUN/Creatinine Ratio 50.00 H Glucose 129 H Total Bilirubin 0.2 L Creatine Kinase C-Reactive Protein 6.7 H Total Protein 5.8 L Albumin 3.20 L Albumin/Globulin Ratio 1.23 L Coronavirus (PCR) 10/19/20 10/19/20 05:43 05:43 WBC RBC Hgb Hct MCHC RDW Immature Gran # Neutrophils # Lymphocytes # Monocytes # Eosinophils # APTT D-Dimer 3.99 H Chloride BUN Creatinine BUN/Creatinine Ratio Glucose Total Bilirubin Creatine Kinase C-Reactive Protein 7.2 H Total Protein Albumin Albumin/Globulin Ratio Coronavirus (PCR) - Diagnostic Findings Chest x-ray: image reviewed CT scan - chest: image reviewed Assessment and Plan Assessment: Acute coronavirus infection, without much in the way of COVID 19 pneumonia. Chronic obstructive pulmonary disease, severe, with an FEV1 that is 49% of predicted. Her COPD may be active at this time. Bilateral pulmonary emboli, as result of the hypercoagulability induced by coronavirus infection. History of chronic anxiety. Radiographic evidence of pulmonary arterial hypertension. Pneumatocele versus bulla, right upper lobe. Prior history of seizure disorder. History of gastroesophageal reflux disease. History of hypertension. Prior history of MRSA pulmonary infection. History of cataracts. Prior history of heavy tobacco use. Plan: Plan dated 10/19/2020. The patient was already started on a factor X a inhibitor by the primary service. The patient was also given REM, by the infectious disease doctor. In addition, the patient is on an albuterol inhaler, and Symbicort, as well as Rocephin, Decadron, and vitamins. Overall prognosis is guarded. I did try to have a conversation about CODE STATUS with the patient. Her deafness, made it very difficult to know exactly what she would want for herself. We will try to make an effort to contact the family members. Additional recommendations and suggestions are forthcoming. We will continue to follow and make recom mendations where appropriate. Time with Patient: Greater than 30
[2020-10-19] MEDS: LIDOCAINE 5% PATCH TOPICAL SCH (18:16)
--- NOTE | 2020-10-19 19:53 | P.PN ---
Progress Note - Text Progress Note Date: 10/19/20 Chief Complaint: Shortness of breath History of presenting complaint: This is a 80-year-old patient, who was brought in from [facility]. Being followed by Dr. Granado. By the EMS report patient had been noticed to be increasingly short of breath for the day. Patient's pulse ox intra-abdominal 83%. At her baseline she uses 3 L of oxygen that was increased to 4 L. Pulse ox was 96% when the EMS arrived. Staff informed the patient tested positive for COVID on a PCR test. Patient is able to answer simple questions. Patient has not been walking as she feels rather tight. At baseline. She does eat some. Patient has a slight dry chronic cough. Denies any fever and chills. He stopped smoking 2 years ago. October 18: Computed tomography scan of the chest today showed bilateral pulmonary embolism. Patient sitting up in bed. Comfortable. Pulse ox 99% on 3 L. Started on xarelto. Eating 25-50% October 19: Resting in bed. Tired. On xarelto. Eating okay. On nasal cannula. Started IV Remdesivir today. Review of systems: Was done for constitutional, cardiovascular, GI, pulmonary. relevant finding as above Active Medications Acetaminophen (Acetaminophen Suppository 650 Mg Supp) 650 mg RECTAL Q6H PRN PRN Reason: Pain or Fever > 100.5 Hydrocodone Bitart/Acetaminophen (Hydrocodone/Apap 5-325mg 1 Each Tab) 1 each PO Q6H PRN PRN Reason: Pain Last Admin: 10/17/20 13:51 Dose: 1 each Documented by: Albuterol Sulfate (Albuterol Hfa Inhaler) 2 puff INHALATION RT-QID [facility] Last Admin: 10/19/20 15:52 Dose: 2 puff Documented by: Albuterol Sulfate (Albuterol Hfa Inhaler) 2 puff INHALATION RT-QID PRN PRN Reason: Shortness Of Breath Or Wheezing Alprazolam (Alprazolam 0.25 Mg Tab) 0.25 mg PO BID PRN PRN Reason: ANXIETY, UNTIL 10/26/20 Last Admin: 10/18/20 22:53 Dose: 0.25 mg Documented by: Ascorbic Acid (Ascorbic Acid 500 Mg Tab) 1,000 mg PO DAILY [facility] Last Admin: 10/19/20 09:30 Dose: 1,000 mg Documented by: Bisacodyl (Bisacodyl 10 Mg Supp) 10 mg RECTAL DAILY PRN PRN Reason: Constipation Budesonide/Formoterol Fumarate (Symbicort 160-4.5 Mcg Inhaler) 2 puff INHALATION RT-BID@0800,1700 [facility] Last Admin: 10/19/20 08:29 Dose: 2 puff Documented by: Cholecalciferol (Cholecalciferol 25 Mcg (1000 Iu) Tablet) 100 mcg PO DAILY [facility] Last Admin: 10/19/20 09:29 Dose: 100 mcg Documented by: Dexamethasone (Dexamethasone 2 Mg Tab) 6 mg PO DAILY [facility] Last Admin: 10/19/20 09:30 Dose: 6 mg Documented by: Fentanyl (Fentanyl 25mcg/Hr Patch) 1 patch TRANSDERM Q72H [facility]; Protocol Last Admin: 10/17/20 07:40 Dose: Not Given Documented by: Sodium Chloride (Saline 0.9%) 1,000 mls @ 100 mls/hr IV .Q10H [facility] Last Admin: 10/18/20 23:23 Dose: 100 mls/hr Documented by: Ceftriaxone Sodium 2 gm/ (Sodium Chloride) 50 mls @ 100 mls/hr IVPB Q24H [facility] Last Admin: 10/18/20 22:53 Dose: 100 mls/hr Documented by: Remdesivir 100 mg/ Sodium (Chloride) 250 mls @ 250 mls/hr IVPB DAILY@2200 [facility] Stop: 10/22/20 22:59 Levetiracetam (Levetiracetam Oral Soln 500 Mg/5 Ml Cup) 500 mg PO BID@0800,2100 [facility] Last Admin: 10/19/20 09:29 Dose: 500 mg Documented by: Lidocaine (Lidocaine 5% Patch) 1 patch TOPICAL DAILY@1600 [facility]; Protocol Last Admin: 10/19/20 18:16 Dose: Not Given Documented by: Loratadine (Loratadine 10 Mg Tab) 10 mg PO DAILY@0800 [facility] Last Admin: 10/19/20 09:30 Dose: 10 mg Documented by: Losartan Potassium (Losartan 25 Mg Tab) 25 mg PO DAILY@0800 [facility] Last Admin: 10/19/20 09:30 Dose: 25 mg Documented by: Magnesium Hydroxide (Magnesium Hydroxide 2,400 Mg/10 Ml Cup) 2,400 mg PO DAILY PRN PRN Reason: Constipation Miscellaneous Information (Pneumonia Protocol Utilized 1 Each Misc) 1 each PO ONCE PRN PRN Reason: Per Protocol Pantoprazole Sodium (Pantoprazole 40 Mg Tablet) 40 mg PO DAILY@0800 [facility] Last Admin: 10/19/20 09:30 Dose: 40 mg Documented by: Rivaroxaban (Rivaroxaban 15 Mg Tab) 15 mg PO BID-W/MEALS [facility]; Protocol Last Admin: 10/19/20 16:38 Dose: 15 mg Documented by: Sodium Chloride (Sodium Chloride 0.65% Nasal [place] 44 Ml Btl) 1 spray INTRANASA L Q2H PRN PRN Reason: Congestion Zinc Sulfate (Zinc Sulfate 220 Mg Cap) 220 mg PO DAILY [facility] Last Admin: 10/19/20 09:30 Dose: 220 mg Documented by: Past medical history to include: COPD, stroke, home oxygen 3 L, Social history: Patient smoking from the age of 16 up to 2 years ago. One pack a day. No alcohol. Currently at [facility]. Family history: Mother from a ruptured brain aneurysm. Coronary artery disease Physical examination: VITAL SIGNS: 98.2, 92, 19, 142/87, 95% 4 L GENERAL: Reclining in bed,, tired, very thin built with muscle wasting EYES: Pupils equal. Conjunctiva normal. HEENT: External appearance of nose and ears normal, oral cavity grossly normal. NECK: JVD not raised; masses not palpable. HEART: First and second heart sounds are normal; no edema. LUNGS: Respiratory rate increased; diminished breath sounds occasional crackle. ABDOMEN: Soft, nontender, liver spleen not palpable, no masses palpable. PSYCH: Patient is able to answer simple questions MUSCULAR skeletal: Diffuse wasting of muscles, muscle muscle mass, prominent bones, osteoarthritis INVESTIGATIONS, reviewed in the clinical context: October 19: D-dimer 3.99 procalcitonin 0.11 October 18: WBC 19.8 hemoglobin 11.3 platelets 162 potassium 4.2 creatinine 0.4 d- dimer 6.69. Pro-calcitonin 0.09 Coronavirus [PCR]: Detected CT chest: Bilateral pulmonary embolism. Pulmonary arterial hypertension. New pneumatocele. More irregular opacity lump posterior margin 1.5 x 0.9 cm. T12 compression deformity. WBC 16.1, hemoglobin 12.5 platelets 213 potassium 4.6 BUN 23 creatinine 0.4 Troponin I 0.023 proBNP 1840 albumin 3.2 EKG tracing personally reviewed by me-normal sinus rhythm, 103 Chest x-ray film personally reviewed by me-hyperinflation. Tubular heart. Some infiltrates COVID PCR test reported positive from the ECF Assessment and plan: -Bilateral COVID 19 pneumonia Dexamethasone 6 mg daily., Zinc, vitamin C, vitamin D. IV Remdesivir started by ID -Acute bilateral pulmonary embolism *Xarelto -Questionable lung mass and new pneumatocele Consult pulmonary -Acute hypoxic respiratory failure from COVID 19 pneumonia.: Better Pulse ox was reported to drop in the 80s at the ECF. 4 L nasal cannula -Acute exacerbation of advanced prednisone dependent COPD in a previous smoker Dexamethasone. Symbicort with spacer. Albuterol -Moderate protein calorie malnutrition from decreased oral intake Dietitian consult. Had ensure. -Chronic medical debility -Essential hypertension Cozaar 25 mg daily -GERD Protonix 40 mg daily Started on IV Remdesivir. Continue dexamethasone. Loading with xarelto. prognosis guarded
[2020-10-19] MEDS: SODIUM CHLORIDE 0.9% 1,000 ML IV SCH (21:36)
[2020-10-19] MEDS: ALPRAZolam 0.25 MG TAB PO PRN (21:48)
--- NOTE | 2020-10-19 23:05 | PN ---
PROGRESS NOTE DATE OF SERVICE: 10/19/2020 REASON FOR FOLLOWUP: COVID-19 pneumonia. INTERVAL HISTORY: Patient is afebrile. The patient is breathing slightly comfortably. Still requiring supplemental oxygen almost 4 L. It is very hard to get a history from this patient. However, denies any chest pain. Did have a cough, not bringing up any sputum. No abdominal pain or diarrhea. PHYSICAL EXAMINATION: Blood pressure 122/66, pulse of 88, temp 97.6. She is 93% on 2 L nasal cannula. General description is an elderly female lying in bed in no distress. Respiratory system: Unlabored breathing, decreased intensity of breath sounds. No wheeze. Heart: S1, S2. Regular rate and rhythm. Abdomen: Soft no tenderness. LABS: D-dimer is 3.99. LDH is 447. CRP 7.2. Procalcitonin 0.11. DIAGNOSTIC IMPRESSION/PLAN: 1. Patient with acute COVID-19 infection concerning for pneumonia and hypercoagulable state with secondary bilateral pulmonary emboli. Patient to continue with Remdesivir to finish a 5 day course of therapy along with dexamethasone, zinc, ascorbic acid and Xarelto for her pulmonary embolism. 2. Clinically doubt secondary bacterial pneumonia. Antibiotic discontinued and we will monitor closely off antibiotic therapy. MMODL / IJN: [id number] /
[2020-10-20] MEDS: REMDESIVIR 100 MG in SODIUM CHLORIDE 0.9% 250 ML IVPB SCH ×2 (00:36→16:36)
[2020-10-20] MEDS: SODIUM CHLORIDE 0.9% 1,000 ML IV SCH ×2 (04:26→13:34)
[2020-10-20] MEDS: ALBUTEROL HFA INHALER INHALATION SCH ×4 (07:37→20:56)
[2020-10-20] MEDS: SYMBICORT 160-4.5 MCG INHALER INHALATION SCH ×2 (07:37→20:56)
[2020-10-20] MEDS: ZINC SULFATE 220 MG CAP PO SCH (08:37)
[2020-10-20] MEDS: ASCORBIC ACID 500 MG TAB PO SCH (08:37)
[2020-10-20] MEDS: LOSARTAN 25 MG TAB PO SCH (08:37)
[2020-10-20] MEDS: CHOLECALCIFEROL 25 MCG (1000 IU) TABLET PO SCH (08:37)
[2020-10-20] MEDS: dexAMETHasone 2 MG TAB PO SCH (08:37)
[2020-10-20] MEDS: PANTOPRAZOLE 40 MG TABLET PO SCH (08:37)
[2020-10-20] MEDS: RIVAROXABAN 15 MG TAB PO SCH ×2 (08:38→16:37)
[2020-10-20] MEDS: levETIRAcetam ORAL SOLN 500 MG/5 ML CUP PO SCH ×2 (08:38→21:15)
[2020-10-20] MEDS: LORATADINE 10 MG TAB PO SCH (08:40)
[2020-10-20] MEDS: HYDROcodone/APAP 5-325MG 1 EACH TAB PO PRN (13:44)
--- NOTE | 2020-10-20 14:06 | P.PN ---
Subjective Progress Note Date: 10/20/20 Principal diagnosis: CoVID pneumonia 80-year-old female, seen in the emergency department on 10/16/2020. She was apparently brought there by EMS. She came in with complaints of shortness of breath. She is not a particularly good historian. She does have a history of severe stage III COPD with an FEV1 that is 49% of predicted. The patient is chronically on oxygen therapy. In addition, the patient was found to be positive for coronavirus infection, and COVID 19 pneumonia. We'll only received the consultation on this patient today. The patient is extremely hard of hea ring. The evaluation was difficult because of her deafness. It's unclear to me how long she has been feeling poorly. She was not able to articulate when she first felt sick. She was started on REM, by the infectious disease doctor, so I am assuming, that her symptoms have been present for 7 days or less. Laboratory data recently includes a white count of 19.8, hemoglobin 11.3, hematocrit 36.8, and a platelet count of 162,000. Her d-dimer was initially 6.69, and is now 3.99. Sodium 142, potassium 4.2, chlorides 110, CO2 22, anion gap 9.7, BUN 20, and creatinine 0.4. C-reactive protein was 15.9, and is now down to 7.2. Pro- calcitonin level is low at 0.09. CT angiogram showed bilateral acute pulmonary emboli with mild to moderate burden. There was no evidence of right heart strain. There is evidence of pulmonary arterial hypertension, pneumatic serial, versus bulla, and the right upper lobe, and irregular opacity along the posterior margins measuring 1.5 x 0.9 cm, and age indeterminate but suspected chronic T12 compression deformity. The patient has already been started on Xarelto. The patient is seen today 10/20/2020 and follow-up on the regular medical floor. She is currently sitting up in bed. Awake and alert in no acute distress. Currently maintaining O2 saturations in the mid 90s on 3 L/m per nasal cannula. Blood culture reveals no growth to date. She remains on bronchodilators, Decadron, Xarelto. She is on vitamin supplements and completing a course of Remdesivir. Objective - Vital Signs Vital signs: Vital Signs Temp 98.9 F 10/20/20 10:00 Pulse 96 10/20/20 10:00 Resp 18 10/20/20 12:30 BP 134/69 10/20/20 10:00 Pulse Ox 95 10/20/20 12:30 Intake & Output 10/19/20 10/20/20 10/20/20 18:59 06:59 18:59 Intake Total 240 Balance 240 Intake: Oral 240 Other: Voiding Method Diaper Diaper Diaper Incontinent Incontinent Incontinent # Voids 1 3 # Bowel Movements 1 2 - Exam GENERAL EXAM: Alert, frail, cachectic 80-year-old female patient, on 3 L nasal cannula, comfortable in no apparent distress. HEAD: Normocephalic. EYES: Normal reaction of pupils, equal size. NOSE: Clear with pink turbinates. THROAT: No erythema or exudates. NECK: No masses, no JVD. CHEST: No chest wall deformity. LUNGS: Equal air entry crackles in the bilateral bases. CVS: S1 and S2 normal with no audible murmur, regular rhythm. ABDOMEN: No hepatosplenomegaly, normal bowel sounds, no guarding or rigidity. SPINE: No scoliosis or deformity SKIN: No rashes CENTRAL NERVOUS SYSTEM: No focal deficits, tone is normal in all 4 extremities. EXTREMITIES: There is no peripheral edema. No clubbing, no cyanosis. Pe ripheral pulses are intact. - Labs CBC & Chem 7: 10/18/20 07:44 10/18/20 07:44 Labs: Microbiology - Last 24 Hours (Table) 10/16/20 19:44 Blood Culture - Preliminary Blood No Growth after 72 hours 10/16/20 19:28 Blood Culture - Preliminary Blood No Growth after 72 hours Assessment and Plan Assessment: 1 Acute coronavirus infection, without much in the way of COVID 19 pneumonia. 2 Chronic obstructive pulmonary disease, severe, with an FEV1 that is 49% of predicted. Her COPD may be active at this time. 3 Bilateral pulmonary emboli, as result of the hypercoagulability induced by coronavirus infection. Currently on Xarelto. 4 History of chronic anxiety. 5 Radiographic evidence of pulmonary arterial hypertension. 6 Pneumatocele versus bulla, right upper lobe. 7 Prior history of seizure disorder. 8 History of gastroesophageal reflux disease. 9 History of hypertension. 10 Prior history of MRSA pulmonary infection. 11 History of cataracts. 12 Prior history of heavy tobacco use. Plan: The patient was seen and evaluated by Dr. Hauser Currently stable from the pulmonary standpoint Continue the current treatment plan including Remdesivir Follow-up inflammatory markers and chest x-ray in the a.m. Titrate the FiO2 as tolerated CODE STATUS to be addressed by primary services We will continue to follow I, the cosigning physician, performed a history & physical examination of the patient. Lungs sounds with crackles in the bilateral bases. Maintaining good O2 saturations in the 90s on 3 L/m per nasal cannula. I discussed the assessment and plan of care with my nurse practitioner, Darlene Underwood. I attest to the above note as dictated by her.
[2020-10-20] MEDS: LIDOCAINE 5% PATCH TOPICAL SCH (16:36)
--- NOTE | 2020-10-20 16:48 | PN ---
PROGRESS NOTE DATE OF SERVICE: 10/20/2020 REASON FOR FOLLOWUP: COVID-19 pneumonia. INTERVAL HISTORY: The patient is afebrile. The patient mentioned she is feeling better. She is breathing comfortably. Denies any chest pain. No worsening cough. No abdominal pain or diarrhea. PHYSICAL EXAMINATION: Blood pressure 104/69, pulse of 92. Temp is 97.9. She is 95% on 3 L nasal cannula. General description is an elderly female up in the chair in no distress. Respiratory system: Unlabored breathing. Crackles at the bases. Heart: S1, S2. Regular rate and rhythm. Abdomen soft, no tenderness. LABS: No new labs have been obtained today. DIAGNOSTIC IMPRESSION/PLAN: Patient with acute COVID-19 infection. Patient does have underlying COPD, now with evidence of pulmonary embolism, possibly related to her Covid infection. Patient to continue with Xarelto, dexamethasone, Remdesivir, and respiratory support. Monitor clinical course closely. MMODL / IJN: [id number] /
--- NOTE | 2020-10-20 20:16 | P.PN ---
Progress Note - Text Progress Note Date: 10/20/20 Chief Complaint: Shortness of breath History of presenting complaint: This is a 80-year-old patient, who was brought in from [facility]. Being followed by Dr. Granado. By the EMS report patient had been noticed to be increasingly short of breath for the day. Patient's pulse ox intra-abdominal 83%. At her baseline she uses 3 L of oxygen that was increased to 4 L. Pulse ox was 96% when the EMS arrived. Staff informed the patient tested positive for COVID on a PCR test. Patient is able to answer simple questions. Patient has not been walking as she feels rather tight. At baseline. She does eat some. Patient has a slight dry chronic cough. Denies any fever and chills. He stopped smoking 2 years ago. October 18: Computed tomography scan of the chest today showed bilateral pulmonary embolism. Patient sitting up in bed. Comfortable. Pulse ox 99% on 3 L. Started on xarelto. Eating 25-50% October 19: Resting in bed. Tired. On xarelto. Eating okay. On nasal cannula. Started IV Remdesivir today. October 20: Sitting up/reclining in a chair. Tired. Some shortness of breath. Getting IV Remdesivir. Eating about 25%. Antibiotics discontinued not felt to be pneumonia. Review of systems: Was done for constitutional, cardiovascular, GI, pulmonary. relevant finding as above Active Medications Acetaminophen (Acetaminophen Suppository 650 Mg Supp) 650 mg RECTAL Q6H PRN PRN Reason: Pain or Fever > 100.5 Hydrocodone Bitart/Acetaminophen (Hydrocodone/Apap 5-325mg 1 Each Tab) 1 each PO Q6H PRN PRN Reason: Pain Last Admin: 10/20/20 13:44 Dose: 1 each Documented by: Albuterol Sulfate (Albuterol Hfa Inhaler) 2 puff INHALATION RT-QID [facility] Last Admin: 10/20/20 16:01 Dose: 2 puff Documented by: Albuterol Sulfate (Albuterol Hfa Inhaler) 2 puff INHALATION RT-QID PRN PRN Reason: Shortness Of Breath Or Wheezing Alprazolam (Alprazolam 0.25 Mg Tab) 0.25 mg PO BID PRN PRN Reason: ANXIETY, UNTIL 10/26/20 Last Admin: 10/19/20 21:48 Dose: 0.25 mg Documented by: Ascorbic Acid (Ascorbic Acid 500 Mg Tab) 1,000 mg PO DAILY [facility] Last Admin: 10/20/20 08:37 Dose: 1,000 mg Documented by: Bisacodyl (Bisacodyl 10 Mg Supp) 10 mg RECTAL DAILY PRN PRN Reason: Constipation Budesonide/Formoterol Fumarate (Symbicort 160-4.5 Mcg Inhaler) 2 puff INHALATION RT-BID@0800,1700 [facility] Last Admin: 10/20/20 07:37 Dose: 2 puff Documented by: Cholecalciferol (Cholecalciferol 25 Mcg (1000 Iu) Tablet) 100 mcg PO DAILY [facility] Last Admin: 10/20/20 08:37 Dose: 100 mcg Documented by: Dexamethasone (Dexamethasone 2 Mg Tab) 6 mg PO DAILY [facility] Last Admin: 10/20/20 08:37 Dose: 6 mg Documented by: Fentanyl (Fentanyl 25mcg/Hr Patch) 1 patch TRANSDERM Q72H [facility]; Protocol Last Admin: 10/20/20 08:38 Dose: 1 patch Documented by: Sodium Chloride (Saline 0.9%) 1,000 mls @ 100 mls/hr IV .Q10H [facility] Last Admin: 10/20/20 13:34 Dose: Not Given Documented by: Remdesivir 100 mg/ Sodium (Chloride) 250 mls @ 250 mls/hr IVPB DAILY@2200 [facility] Stop: 10/22/20 22:59 Last Admin: 10/20/20 16:36 Dose: 250 mls/hr Documented by: Levetiracetam (Levetiracetam Oral Soln 500 Mg/5 Ml Cup) 500 mg PO BID@0800,2100 [facility] Last Admin: 10/20/20 08:38 Dose: 500 mg Documented by: Lidocaine (Lidocaine 5% Patch) 1 patch TOPICAL DAILY@1600 [facility]; Protocol Last Admin: 10/20/20 16:36 Dose: 1 patch Documented by: Loratadine (Loratadine 10 Mg Tab) 10 mg PO DAILY@0800 [facility] Last Admin: 10/20/20 08:40 Dose: 10 mg Documented by: Losartan Potassium (Losartan 25 Mg Tab) 25 mg PO DAILY@0800 [facility] Last Admin: 10/20/20 08:37 Dose: 25 mg Documented by: Magnesium Hydroxide (Magnesium Hydroxide 2,400 Mg/10 Ml Cup) 2,400 mg PO DAILY PRN PRN Reason: Constipation Miscellaneous Information (Pneumonia Protocol Utilized 1 Each Misc) 1 each PO ONCE PRN PRN Reason: Per Protocol Pantoprazole Sodium (Pantoprazole 40 Mg Tablet) 40 mg PO DAILY@0800 [facility] Last Admin: 10/20/20 08:37 Dose: 40 mg Documented by: Rivaroxaban (Rivaroxaban 15 Mg Tab) 15 mg PO BID-W/MEALS [facility]; Protocol Last Admin: 10/20/20 16:37 Dose: 15 mg Documented by: Sodium Chloride (Sodium Chloride 0.65% Nasal [place] 44 Ml Btl) 1 spray INTRANASAL Q2H PRN PRN Reason: Congestion Zinc Sulfate (Zinc Sulfate 220 Mg Cap) 220 mg PO DAILY [facility] Last Admin: 10/20/20 08:37 Dose: 220 mg Documented by: Past medical history to include: COPD, stroke, home oxygen 3 L, Social history: Patient smoking from the age of 16 up to 2 years ago. One pack a day. No alcohol. Currently at [facility]. Family history: Mother from a ruptured brain aneurysm. Coronary artery disease Physical examination: VITAL SIGNS: 97.9, 92, 18, 130/69, 95% on 3 L GENERAL: Reclining in chair,, tired, very thin built with muscle wasting EYES: Pupils equal. Conjunctiva normal. HEENT: External appearance of nose and ears normal, oral cavity grossly normal. NECK: JVD not raised; masses not palpable. HEART: First and second heart sounds are normal; no edema. LUNGS: Respiratory rate increased; diminished breath sounds occasional crackle. ABDOMEN: Soft, nontender, liver spleen not palpable, no masses palpable. PSYCH: Patient is able to answer simple questions MUSCULAR skeletal: Diffuse wasting of muscles, muscle muscle mass, prominent bones, osteoarthritis INVESTIGATIONS, reviewed in the clinical context: October 19: D-dimer 3.99 procalcitonin 0.11 October 18: WBC 19.8 hemoglobin 11.3 platelets 162 potassium 4.2 creatinine 0.4 d- dimer 6.69. Pro-calcitonin 0.09 Coronavirus [PCR]: Detected CT chest: Bilateral pulmonary embolism. Pulmonary arterial hypertension. New pneumatocele. More irregular opacity lump posterior margin 1.5 x 0.9 cm. T12 compression deformity. WBC 16.1, hemoglobin 12.5 platelets 213 potassium 4.6 BUN 23 creatinine 0.4 Troponin I 0.023 proBNP 1840 albumin 3.2 EKG tracing personally reviewed by me-normal sinus rhythm, 103 Chest x-ray film personally reviewed by me-hyperinflation. Tubular heart. Some infiltrates COVID PCR test reported positive from the ECF Assessment and plan: -Bilateral COVID 19 pneumonia Dexamethasone 6 mg daily., Zinc, vitamin C, vitamin D. IV Remdesivir started- date 2 of 5 -Acute bilateral pulmonary embolism *Xarelto -Questionable lung mass and new pneumatocele Follow pulmonary -Acute hypoxic respiratory failure from COVID 19 pneumonia.: Better Pulse ox was reported to drop in the 80s at the ECF. 3 L nasal cannula -Acute exacerbation of advanced prednisone dependent COPD in a previous smoker Dexamethasone. Symbicort with spacer. Albuterol -Moderate protein calorie malnutrition from decreased oral intake Dietitian consult. Had ensure. -Chronic medical debility -Essential hypertension Cozaar 25 mg daily -GERD Protonix 40 mg daily IV Remdesivir. , dexamethasone., xarelto. prognosis guarded
[2020-10-21] MEDS: SODIUM CHLORIDE 0.9% 1,000 ML IV SCH ×3 (03:24→19:27)
--- NOTE | 2020-10-21 06:40 | XR ---
EXAMINATION TYPE: XR chest 1V portable DATE OF EXAM: 10/21/2020 CLINICAL HISTORY: Difficulty breathing and covid progress study. TECHNIQUE: Single AP portable upright view of the chest is obtained. COMPARISON: Chest x-ray from 4 days earlier and older studies. CT chest 3 days ago. FINDINGS: Background chronic emphysematous and pulmonary fibrotic changes greatest in the right uppe r lung is redemonstrated. Slightly more prominent small to tiny left greater than right pleural effus ions. Cardiac silhouette size is stable and within normal limits. No new focal airspace opacity. Osse ous structures remain demineralized with underlying scoliosis. IMPRESSION: Chronic emphysematous and pulmonary fibrotic changes. Slightly more prominent small to ti ny bilateral pleural effusions.
[2020-10-21] MEDS: SYMBICORT 160-4.5 MCG INHALER INHALATION SCH ×2 (07:38→19:14)
[2020-10-21] MEDS: ALBUTEROL HFA INHALER INHALATION SCH ×4 (07:38→19:14)
[2020-10-21] MEDS: RIVAROXABAN 15 MG TAB PO SCH ×2 (08:59→17:24)
[2020-10-21] MEDS: dexAMETHasone 2 MG TAB PO SCH (08:59)
[2020-10-21] MEDS: PANTOPRAZOLE 40 MG TABLET PO SCH (09:00)
[2020-10-21] MEDS: levETIRAcetam ORAL SOLN 500 MG/5 ML CUP PO SCH ×2 (09:00→20:28)
[2020-10-21] MEDS: CHOLECALCIFEROL 25 MCG (1000 IU) TABLET PO SCH (09:00)
[2020-10-21] MEDS: LORATADINE 10 MG TAB PO SCH (09:00)
[2020-10-21] MEDS: ZINC SULFATE 220 MG CAP PO SCH (09:00)
[2020-10-21] MEDS: ASCORBIC ACID 500 MG TAB PO SCH (09:01)
[2020-10-21] MEDS: LOSARTAN 25 MG TAB PO SCH (09:01)
[2020-10-21] MEDS: HYDROcodone/APAP 5-325MG 1 EACH TAB PO PRN ×2 (09:26→22:38)
--- NOTE | 2020-10-21 10:54 | P.PN ---
Subjective Progress Note Date: 10/21/20 Principal diagnosis: Respiratory failure. 80-year-old female, seen in the emergency department on 10/16/2020. She was apparently brought there by EMS. She came in with complaints of shortness of breath. She is not a particularly good historian. She does have a history of severe stage III COPD with an FEV1 that is 49% of predicted. The patient is chronically on oxygen therapy. In addition, the patient was found to be positive for coronavirus infection, and COVID 19 pneumonia. We'll only received the consultation on this patient today. The patient is extremely hard of hearing. The evaluation was difficult because of her deafness. It's unclear to me how long she has been feeling poorly. She was not able to articulate when she first felt sick. She was started on REM, by the infectious disease doctor, so I am assuming, that her symptoms have been present for 7 days or less. Laboratory data recently includes a white count of 19.8, hemoglobin 11.3, hematocrit 36.8, and a platelet count of 162,000. Her d-dimer was initially 6.69, and is now 3.99. Sodium 142, potassium 4.2, chlorides 110, CO2 22, anion gap 9.7, BUN 20, and creatinine 0.4. C-reactive protein was 15.9, and is now down to 7.2. Pro-calcitonin level is low at 0.09. CT angiogram showed inge ateral acute pulmonary emboli with mild to moderate burden. There was no evidence of right heart strain. There is evidence of pulmonary arterial hypertension, pneumatic serial, versus bulla, and the right upper lobe, and irregular opacity along the posterior margins measuring 1.5 x 0.9 cm, and age indeterminate but suspected chronic T12 compression deformity. The patient has already been started on Xarelto. The patient is seen today 10/20/2020 and follow-up on the regular medical floor. She is currently sitting up in bed. Awake and alert in no acute distress. Currently maintaining O2 saturations in the mid 90s on 3 L/m per nasal cannula. Blood culture reveals no growth to date. She remains on bronchodilators, Decadron, Xarelto. She is on vitamin supplements and completing a course of Remdesivir. Progress note dated 10/21/2020. 80-year-old female seen today in room 475. The patient has a history of chronic shortness of breath, in part related to severe COPD, with an FEV1 that is 49% predicted. She was also found to be positive for coronavirus infection, and COVID 19 pneumonia. The patient was started on appropriate medications. This included a course of REM. Currently, the patient's doing well clinically. She does feel better. She likely will be discharged back to the care home when she is ready for discharge from the hospital. Current vitals are stable in cluding a temperature 98.1, heart rate 93, respiratory rate 17, blood pressure 165/84, and 3 L saturation 96%. Blood cultures are currently negative. Objective - Vital Signs Vital signs: Vital Signs Temp 98.1 F 10/21/20 09:15 Pulse 93 10/21/20 09:15 Resp 17 10/21/20 09:15 BP 165/84 10/21/20 09:15 Pulse Ox 96 10/21/20 09:15 Intake & Output 10/20/20 10/21/20 10/21/20 18:59 06:59 18:59 Intake Total 1850 Output Total 300 Balance 1550 Intake: Intake, IV Titration 1250 Amount Remdesivir 100 mg In 250 Sodium Chloride 0.9% 250 ml @ 250 mls/hr IVPB DAILY@2200 [facility] Rx#: [id number] Sodium Chloride 0.9% 1, 1000 000 ml @ 100 mls/hr IV . Q10H [facility] Rx#:[id number] Oral 600 Output: Urine 300 Other: Voiding Method Diaper Diaper Diaper Incontinent Incontinent Incontinent # Voids 3 3 - Exam No acute distress, oriented 3. The patient is very frail appearing. Currently on 3 L. Saturations are 96%. HEENT examination is grossly unremarkable. Neck supple. Full range of motion. No adenopathy thyromegaly or neck vein distention. Cardiovascular examination reveals regular rhythm rate. S1-S2 normal. No S3 or S4. No discernible murmur noted. Heart sounds are distant. Heart rate 93 bpm. Lungs diffuse coarse rhonchi. Minimal crackles. No wheezes. Breath sounds equal bilaterally. She does not take deep breaths. Abdomen soft bowel sounds are heard. No masses or tenderness. Extremities are intact. No cyanosis clubbing or edema. Skin is without rash or lesion. Neurologic examination is brief but nonfocal. - Labs CBC & Chem 7: 10/18/20 07:44 10/18/20 07:44 Labs: Microbiology - Last 24 Hours (Table) 10/16/20 19:44 Blood Culture - Preliminary Blood No Growth after 96 hours 10/16/20 19:28 Blood Culture - Preliminary Blood No Growth after 96 hours Assessment and Plan Assessment: Acute coronavirus infection, without much in the way of COVID 19 pneumonia. Chronic obstructive pulmonary disease, severe, with an FEV1 that is 49% of predicted. Her COPD may be active at this time. Bilateral pulmonary emboli, as result of the hypercoagulability induced by coronavirus infection. History of chronic anxiety. Radiographic evidence of pulmonary arterial hypertension. Pneumatocele versus bulla, right upper lobe. Prior history of seizure disorder. History of gastroesophageal reflux disease. History of hypertension. Prior history of MRSA pulmonary infection. History of cataracts. Prior history of heavy tobacco use. Plan: Plan dated 10/19/2020. The patient was already started on a factor X a inhibitor by the primary service. The patient was also given REM, by the infectious disease doctor. In addition, the patient is on an albuterol inhaler, and Symbicort, as well as Rocephin, Decadron, and vitamins. Overall prognosis is guarded. I did try to have a conversation about CODE STATUS with the patient. Her deafness, made it very difficult to know exactly what she would want for herself. We will try to make an effort to contact the family members. Additional recommendations and suggestions are forthcoming. We will continue to follow and make recommendations where appropriate. Plan dated 10/21/2020. The patient is ready on a factor X a inhibitor. The patient also was given REM by the infectious disease doctor. I believe most of her shortness of breath relates to her underlying COPD, rather than coronavirus pneumonia. The patient is also on albuterol inhaler, Symbicort, Rocephin, Decadron, and vitamins. Clinically, she's feeling better today. She's down to 3 L. Saturations are 96%. CODE STATUS should be addressed. We will continue to follow make recommendations where appropriate. Overall prognosis, in my opinion, remains poor. Time with Patient: Less than 30
--- NOTE | 2020-10-21 12:02 | P.PN ---
Progress Note - Text Progress Note Date: 10/21/20 Chief Complaint: Shortness of breath History of presenting complaint: This is a 80-year-old patient, who was brought in from [facility]. Being followed by Dr. Granado. By the EMS report patient had been noticed to be increasingly short of breath for the day. Patient's pulse ox intra-abdominal 83%. At her baseline she uses 3 L of oxygen that was increased to 4 L. Pulse ox was 96% when the EMS arrived. Staff informed the patient tested positive for COVID on a PCR test. Patient is able to answer simple questions. Patient has not been walking as she feels rather tight. At baseline. She does eat some. Patient has a slight dry chronic cough. Denies any fever and chills. He stopped smoking 2 years ago. October 18: Computed tomography scan of the chest today showed bilateral pulmonary embolism. Patient sitting up in bed. Comfortable. Pulse ox 99% on 3 L. Started on xarelto. Eating 25-50% October 19: Resting in bed. Tired. On xarelto. Eating okay. On nasal cannula. Started IV Remdesivir today. October 20: Sitting up/reclining in a chair. Tired. Some shortness of breath. Getting IV Remdesivir. Eating about 25%. Antibiotics discontinued not felt to be pneumonia. October 21: Sitting up on a chair. Oral intake fair. Some shortness of breath. She had questions about her condition explained. On IV Remdesivir Review of systems: Was done for constitutional, cardiovascular, GI, pulmonary. relevant finding as above Active Medications Acetaminophen (Acetaminophen Suppository 650 Mg Supp) 650 mg RECTAL Q6H PRN PRN Reason: Pain or Fever > 100.5 Hydrocodone Bitart/Acetaminophen (Hydrocodone/Apap 5-325mg 1 Each Tab) 1 each PO Q6H PRN PRN Reason: Pain Last Admin: 10/21/20 09:26 Dose: 1 each Documented by: Albuterol Sulfate (Albuterol Hfa Inhaler) 2 puff INHALATION RT-QID [facility] Last Admin: 10/21/20 11:26 Dose: 2 puff Documented by: Albuterol Sulfate (Albuterol Hfa Inhaler) 2 puff INHALATION RT-QID PRN PRN Reason: Shortness Of Breath Or Wheezing Alprazolam (Alprazolam 0.25 Mg Tab) 0.25 mg PO BID PRN PRN Reason: ANXIETY, UNTIL 10/26/20 Last Admin: 10/19/20 21:48 Dose: 0.25 mg Documented by: Ascorbic Acid (Ascorbic Acid 500 Mg Tab) 1,000 mg PO DAILY [facility] Last Admin: 10/21/20 09:01 Dose: 1,000 mg Documented by: Bisacodyl (Bisacodyl 10 Mg Supp) 10 mg RECTAL DAILY PRN PRN Reason: Constipation Budesonide/Formoterol Fumarate (Symbicort 160-4.5 Mcg Inhaler) 2 puff INHALATION RT-BID@0800,1700 [facility] Last Admin: 10/21/20 07:38 Dose: 2 puff Documented by: Cholecalciferol (Cholecalciferol 25 Mcg (1000 Iu) Tablet) 100 mcg PO DAILY [facility] Last Admin: 10/21/20 09:00 Dose: 100 mcg Documented by: Dexamethasone (Dexamethasone 2 Mg Tab) 6 mg PO DAILY [facility] Last Admin: 10/21/20 08:59 Dose: 6 mg Documented by: Fentanyl (Fentanyl 25mcg/Hr Patch) 1 patch TRANSDERM Q72H [facility]; Protocol Last Admin: 10/20/20 08:38 Dose: 1 patch Documented by: Sodium Chloride (Saline 0.9%) 1,000 mls @ 100 mls/hr IV .Q10H [facility] Last Admin: 10/21/20 03:24 Dose: Not Given Documented by: Remdesivir 100 mg/ Sodium (Chloride) 250 mls @ 250 mls/hr IVPB DAILY@2200 [facility] Stop: 10/22/20 22:59 Last Admin: 10/20/20 16:36 Dose: 250 mls/hr Documented by: Levetiracetam (Levetiracetam Oral Soln 500 Mg/5 Ml Cup) 500 mg PO BID@0800,2100 [facility] Last Admin: 10/21/20 09:00 Dose: 500 mg Documented by: Lidocaine (Lidocaine 5% Patch) 1 patch TOPICAL DAILY@1600 [facility]; Protocol Last Admin: 10/20/20 16:36 Dose: 1 patch Documented by: Loratadine (Loratadine 10 Mg Tab) 10 mg PO DAILY@0800 [facility] Last Admin: 10/21/20 09:00 Dose: 10 mg Documented by: Losartan Potassium (Losartan 25 Mg Tab) 25 mg PO DAILY@0800 [facility] Last Admin: 10/21/20 09:01 Dose: 25 mg Documented by: Magnesium Hydroxide (Magnesium Hydroxide 2,400 Mg/10 Ml Cup) 2,400 mg PO DAILY PRN PRN Reason: Constipation Miscellaneous Information (Pneumonia Protocol Utilized 1 Each Misc) 1 each PO ONCE PRN PRN Reason: Per Protocol Pantoprazole Sodium (Pantoprazole 40 Mg Tablet) 40 mg PO DAILY@0800 [facility] Last Admin: 10/21/20 09:00 Dose: 40 mg Documented by: Rivaroxaban (Rivaroxaban 15 Mg Tab) 15 mg PO BID-W/MEALS [facility]; Protocol Last Admin: 10/21/20 08:59 Dose: 15 mg Documented by: Sodium Chloride (Sodium Chloride 0.65% Nasal [place] 44 Ml Btl) 1 spray INTRANASAL Q2H PRN PRN Reason: Congestion Zinc Sulfate (Zinc Sulfate 220 Mg Cap) 220 mg PO DAILY [facility] Last Admin: 10/21/20 09:00 Dose: 220 mg Documented by: Past medical history to include: COPD, stroke, home oxygen 3 L, Social history: Patient smoking from the age of 16 up to 2 years ago. One pack a day. No alcohol. Currently at [facility]. Family history: Mother from a ruptured brain aneurysm. Coronary artery disease Physical examination: VITAL SIGNS: 98.1, 93, 17, 1 6584, 96% on 3 L GENERAL: Reclining in chair,, tired, very thin built with muscle wasting EYES: Pupils equal. Conjunctiva normal. HEENT: External appearance of nose and ears normal, oral cavity grossly normal. NECK: JVD not raised; masses not palpable. HEART: First and second heart sounds are normal; no edema. LUNGS: Respiratory rate increased; diminished breath sounds occasional crackle. ABDOMEN: Soft, nontender, liver spleen not palpable, no masses palpable. PSYCH: Patient is able to answer simple questions MUSCULAR skeletal: Diffuse wasting of muscles, muscle muscle mass, prominent bones, osteoarthritis INVESTIGATIONS, reviewed in the clinical context: October 19: D-dimer 3.99 procalcitonin 0.11 October 18: WBC 19.8 hemoglobin 11.3 platelets 162 potassium 4.2 creatinine 0.4 d- dimer 6.69. Pro-calcitonin 0.09 Coronavirus [PCR]: Detected CT chest: Bilateral pulmonary embolism. Pulmonary arterial hypertension. New pneumatocele. More irregular opacity lump posterior margin 1.5 x 0.9 cm. T12 compression deformity. WBC 16.1, hemoglobin 12.5 platelets 213 potassium 4.6 BUN 23 creatinine 0.4 Troponin I 0.023 proBNP 1840 albumin 3.2 EKG tracing personally reviewed by me-normal sinus rhythm, 103 Chest x-ray film personally reviewed by me-hyperinflation. Tubular heart. Some infiltrates COVID PCR test reported positive from the [facility] Assessment and plan: -Bilateral COVID 19 pneumonia Dexamethasone 6 mg daily., Zinc, vitamin C, vitamin D. IV Remdesivir started- date 3 of 5 -Acute bilateral pulmonary embolism *Xarelto -Questionable lung mass and new pneumatocele Follow pulmonary -Acute hypoxic respiratory failure from COVID 19 pneumonia.: Better Pulse ox was reported to drop in the 80s at the ECF. 3 L nasal cannula -Acute exacerbation of advanced prednisone dependent COPD in a previous smoker Dexamethasone. Symbicort with spacer. Albuterol -Moderate protein calorie malnutrition from decreased oral intake Dietitian . ensure. -Chronic medical debility -Essential hypertension Cozaar 25 mg daily -GERD Protonix 40 mg daily IV Remdesivir. , dexamethasone., xarelto. prognosis guarded. Care was discussed with the patient.
[2020-10-21] MEDS: LIDOCAINE 5% PATCH TOPICAL SCH (17:24)
[2020-10-21] MEDS: REMDESIVIR 100 MG in SODIUM CHLORIDE 0.9% 250 ML IVPB SCH (20:28)
--- NOTE | 2020-10-21 21:41 | PN ---
PROGRESS NOTE DATE OF SERVICE: 10/21/2020 REASON FOR FOLLOWUP: COVID-19 pneumonia. INTERVAL HISTORY: Patient is afebrile. The patient is breathing comfortably. Currently on 3 L nasal cannula O2. Denies having any chest pain or worsening cough. No abdominal pain or diarrhea. PHYSICAL EXAMINATION: Blood pressure 174/84 with a pulse of 72, temperature 97.5. She is 96% on 3 L nasal cannula. General description is an elderly female up in the chair in no distress. Respiratory system: Unlabored breathing, decreased breath sounds in the base, with no wheeze. Heart S1, S2. Regular rate and rhythm. Abdomen soft, no tenderness. LABS: No new labs have been obtained today. DIAGNOSTIC IMPRESSION AND PLAN: Patient with acute COVID-19 pneumonia in this patient who did complicated factor of PE. The patient is currently on Xarelto and Remdesivir, zinc and ascorbic acid to continue along with respiratory support and monitor clinical course closely. MMODL / IJN: [id number] /
[2020-10-22] MEDS: SODIUM CHLORIDE 0.9% 1,000 ML IV SCH ×2 (03:46→18:19)
[2020-10-22] MEDS: PANTOPRAZOLE 40 MG TABLET PO SCH (08:52)
[2020-10-22] MEDS: LOSARTAN 25 MG TAB PO SCH (08:52)
[2020-10-22] MEDS: dexAMETHasone 2 MG TAB PO SCH (08:53)
[2020-10-22] MEDS: RIVAROXABAN 15 MG TAB PO SCH ×2 (08:53→16:54)
[2020-10-22] MEDS: ZINC SULFATE 220 MG CAP PO SCH (08:53)
[2020-10-22] MEDS: ASCORBIC ACID 500 MG TAB PO SCH (08:53)
[2020-10-22] MEDS: LORATADINE 10 MG TAB PO SCH (08:53)
[2020-10-22] MEDS: CHOLECALCIFEROL 25 MCG (1000 IU) TABLET PO SCH (08:53)
[2020-10-22] MEDS: ALBUTEROL HFA INHALER INHALATION SCH ×3 (09:07→16:02)
[2020-10-22] MEDS: SYMBICORT 160-4.5 MCG INHALER INHALATION SCH (09:07)
[2020-10-22] MEDS: levETIRAcetam ORAL SOLN 500 MG/5 ML CUP PO SCH (09:41)
--- NOTE | 2020-10-22 11:18 | P.PN ---
Subjective Progress Note Date: 10/22/20 Principal diagnosis: Respiratory failure. 80-year-old female, seen in the emergency department on 10/16/2020. She was apparently brought there by EMS. She came in with complaints of shortness of breath. She is not a particularly good historian. She does have a history of severe stage III COPD with an FEV1 that is 49% of predicted. The patient is chronically on oxygen therapy. In addition, the patient was found to be positive for coronavirus infection, and COVID 19 pneumonia. We'll only received the consultation on this patient today. The patient is extremely hard of hearing. The evaluation was difficult because of her deafness. It's unclear to me how long she has been feeling poorly. She was not able to articulate when she first felt sick. She was started on REM, by the infectious disease doctor, so I am assuming, that her symptoms have been present for 7 days or less. Laboratory data recently includes a white count of 19.8, hemoglobin 11.3, hematocrit 36.8, and a platelet count of 162,000. Her d-dimer was initially 6.69, and is now 3.99. Sodium 142, potassium 4.2, chlorides 110, CO2 22, anion gap 9.7, BUN 20, and creatinine 0.4. C-reactive protein was 15.9, and is now down to 7.2. Pro-calcitonin level is low at 0.09. CT angiogram showed ineg ateral acute pulmonary emboli with mild to moderate burden. There was no evidence of right heart strain. There is evidence of pulmonary arterial hypertension, pneumatic serial, versus bulla, and the right upper lobe, and irregular opacity along the posterior margins measuring 1.5 x 0.9 cm, and age indeterminate but suspected chronic T12 compression deformity. The patient has already been started on Xarelto. The patient is seen today 10/20/2020 and follow-up on the regular medical floor. She is currently sitting up in bed. Awake and alert in no acute distress. Currently maintaining O2 saturations in the mid 90s on 3 L/m per nasal cannula. Blood culture reveals no growth to date. She remains on bronchodilators, Decadron, Xarelto. She is on vitamin supplements and completing a course of Remdesivir. Progress note dated 10/21/2020. 80-year-old female seen today in room 475. The patient has a history of chronic shortness of breath, in part related to severe COPD, with an FEV1 that is 49% predicted. She was also found to be positive for coronavirus infection, and COVID 19 pneumonia. The patient was started on appropriate medications. This included a course of REM. Currently, the patient's doing well clinically. She does feel better. She likely will be discharged back to the senior living when she is ready for discharge from the hospital. Current vitals are stable in cluding a temperature 98.1, heart rate 93, respiratory rate 17, blood pressure 165/84, and 3 L saturation 96%. Blood cultures are currently negative. Progress note dated 10/22/2020. 80-year-old female, again seen today in room 475. The patient has a history of being admitted for shortness of breath, in part related to underlying severe COPD, with an FEV1 that is 99% predicted, but also coronavirus infection, and possible mild COVID 19 pneumonia. The patient was started on appropriate medica tions, including REM, she started by the infectious disease doctor. Currently, she's been weaned down to 3 L. She is feeling much better. She likely will be discharged to a senior living. She's not receiving any IV fluids. I believe she has completed her REM. D-dimer today is 3.45. No additional labs are noted. Chest x-ray from October 21, has been reviewed. Objective - Vital Signs Vital signs: Vital Signs Temp 98.3 F 10/22/20 06:00 Pulse 64 10/22/20 06:00 Resp 18 10/22/20 06:00 BP 155/76 10/22/20 06:00 Pulse Ox 95 10/22/20 09:07 Intake & Output 10/21/20 10/22/20 10/22/20 18:59 06:59 18:59 Intake Total 360 1750 Balance 360 1750 Intake: Intake, IV Titration 1450 Amount Remdesivir 100 mg In 250 Sodium Chloride 0.9% 250 ml @ 250 mls/hr IVPB DAILY@2200 [facility] Rx#: [id number] Sodium Chloride 0.9% 1, 1200 000 ml @ 100 mls/hr IV . Q10H [facility] Rx#:[id number] Oral 360 300 Other: Voiding Method Diaper Diaper Incontinent Incontinent # Voids 2 - Exam No acute distress, oriented 3. The patient is very frail appearing. Currently on 3 L. Saturations are 95%. HEENT examination is grossly unremarkable. Neck supple. Full range of motion. No adenopathy thyromegaly or neck vein distention. Cardiovascular examination reveals regular rhythm rate. S1-S2 normal. No S3 or S4. No discernible murmur noted. Heart sounds are distant. Heart rate 64 bpm. Lungs diffuse coarse rhonchi. Minimal crackles. No wheezes. Breath sounds equal bilaterally. She does not take deep breaths. Abdomen soft bowel sounds are heard. No masses or tenderness. Extremities are intact. No cyanosis clubbing or edema. Skin is without rash or lesion. Neurologic examination is brief but nonfocal. - Labs CBC & Chem 7: 10/18/20 07:44 10/18/20 07:44 Labs: Abnormal Lab Results - Last 24 Hours (Table) 10/22/20 Range/Units 06:21 D-Dimer 3.45 H (<0.60) mg/L FEU Microbiology - Last 24 Hours (Table) 10/16/20 19:28 Blood Culture - Preliminary Blood No Growth after 120 hours 10/16/20 19:44 Blood Culture - Preliminary Blood No Growth after 120 hours Assessment and Plan Assessment: Acute coronavirus infection, without much in the way of COVID 19 pneumonia. Chronic obstructive pulmonary disease, severe, with an FEV1 that is 49% of predicted. Her COPD may be active at this time. Bilateral pulmonary emboli, as result of the hypercoagulability induced by coronavirus infection. History of chronic anxiety. Radiographic evidence of pulmonary arterial hypertension. Pneumatocele versus bulla, right upper lobe. Prior history of seizure disorder. History of gastroesophageal reflux disease. History of hypertension. Prior history of MRSA pulmonary infection. History of cataracts. Prior history of heavy tobacco use. Plan: Plan dated 10/19/2020. The patient was already started on a factor X a inhibitor by the primary servic e. The patient was also given REM, by the infectious disease doctor. In addition, the patient is on an albuterol inhaler, and Symbicort, as well as Rocephin, Decadron, and vitamins. Overall prognosis is guarded. I did try to have a conversation about CODE STATUS with the patient. Her deafness, made it very difficult to know exactly what she would want for herself. We will try to make an effort to contact the family members. Additional recommendations and suggestions are forthcoming. We will continue to follow and make recommendations where appropriate. Plan dated 10/21/2020. The patient is ready on a factor X a inhibitor. The patient also was given REM by the infectious disease doctor. I believe most of her shortness of breath relates to her underlying COPD, rather than coronavirus pneumonia. The patient is also on albuterol inhaler, Symbicort, Rocephin, Decadron, and vitamins. Clinically, she's feeling better today. She's down to 3 L. Saturations are 96%. CODE STATUS should be addressed. We will continue to follow make recommendations where appropriate. Overall prognosis, in my opinion, remains poor. Plan dated 10/22/2020. Currently, the patient appears to be doing better. She has been weaned down to 3 L nasal cannula. Saturations are excellent. Her other medications are reviewed. She has completed her REM. She remains on a factor X a inhibitor. Additional recommendations and suggestions are forthcoming. Her other medications are appropriate. We will continue to follow and make recommendations where appropriate. The patient remains on vitamins, including vitamin C, vitamin D3, and zinc. She also remains on Decadron, as well as Xarelto. Time with Patient: Less than 30
[2020-10-22] MEDS ORDERED: ACETAMINOPHEN TAB 500 MG TAB PO PRN (13:34)
[2020-10-22 15:10] VITALS: BP 139/64; PULSE 92; RESP 17; TEMP 98.3
--- NOTE | 2020-10-22 16:01 | P.DS ---
Providers Date of admission: 10/16/20 20:34 Expected date of discharge: 10/22/20 Attending physician: Abdulkadir Rodriguez Consults: 10/17/20 12:25 Consult Physician Routine Consulting Provider: Driss Cornelius Consult Reason/Comments: covid 19 Do you want consulting provider notified?: Yes 10/18/20 19:05 Consult Physician Routine Consulting Provider: Nora Linda Consult Reason/Comments: Abnormal CT chest Do you want consulting provider notified?: Yes Primary care physician: [facility] Course: Chief Complaint: Shortness of breath History of presenting complaint: This is a 80-year-old patient, who was brought in from [facility]. Being followed by Dr. Granado. By the EMS report patient had been noticed to be increasingly short of breath for the day. Patient's pulse ox intra-abdominal 83%. At her baseline she uses 3 L of oxygen that was increased to 4 L. Pulse ox was 96% when the EMS arrived. Staff informed the patient tested positive for COVID on a PCR test. Patient is able to answer simple questions. Patient has not been walking as she feels rather tight. At baseline. She does eat some. Patient has a slight dry chronic cough. Denies any fever and chills. He stopped smoking 2 years ago. Diagnosed with bilateral pulmonary embolism started on xarelto. Bilateral: COVID pneumonia. Not felt to have bacterial pneumonia. COPD exacerbation. Protein calorie malnutrition. October 18: Computed tomography scan of the chest today showed bilateral pulmonary embolism. Patient sitting up in bed. Comfortable. Pulse ox 99% on 3 L. Started on xarelto. Eating 25-50% October 19: Resting in bed. Tired. On xarelto. Eating okay. On nasal cannula. Started IV Remdesivir today. October 20: Sitting up/reclining in a chair. Tired. Some shortness of breath. Getting IV Remdesivir. Eating about 25%. Antibiotics discontinued not felt to be pneumonia. October 21: Sitting up on a chair. Oral intake fair. Some shortness of breath. She had questions about her condition explained. On IV Remdesivir October 22: Up in a chair. Eating some. Baseline shortness of breath. Discussed with the patient. Cleared by ID and pulmonary to be discharged. Oral prognosis guarded. Discussion and discharge planning more than 35 minutes Consultation: Dr. Cornelius from ID Dr. Hauser from pulmonary Past medical history to include: COPD, stroke, home oxygen 3 L, Social history: Patient smoking from the age of 16 up to 2 years ago. One pack a day. No alcohol. Currently at [facility]. Family history: Mother from a ruptured brain aneurysm. Coronary artery disease Physical examination: VITAL SIGNS: 98.3, 92, 17, 139/64, 98% 3 L GENERAL: Reclining in chair,, awake, very thin built with muscle wasting EYES: Pupils equal. Conjunctiva normal. HEENT: External appearance of nose and ears normal, oral cavity grossly normal. NECK: JVD not raised; masses not palpable. HEART: First and second heart sounds are normal; no edema. LUNGS: Respiratory rate increased; diminished breath sounds ABDOMEN: Soft, nontender, liver spleen not palpable, no masses palpable. PSYCH: Patient is able to answer simple questions MUSCULAR skeletal: Diffuse wasting of muscles, muscle muscle mass, prominent bones, osteoarthritis INVESTIGATIONS, reviewed in the clinical context: October 19: D-dimer 3.99 procalcitonin 0.11 October 18: WBC 19.8 hemoglobin 11.3 platelets 162 potassium 4.2 creatinine 0.4 d- dimer 6.69. Pro-calcitonin 0.09 Coronavirus [PCR]: Detected CT chest: Bilateral pulmonary embolism. Pulmonary arterial hypertension. New pneumatocele. More irregular opacity lump posterior margin 1.5 x 0.9 cm. T12 compression deformity. WBC 16.1, hemoglobin 12.5 platelets 213 potassium 4.6 BUN 23 creatinine 0.4 Troponin I 0.023 proBNP 1840 albumin 3.2 EKG tracing personally reviewed by me-normal sinus rhythm, 103 Chest x-ray film personally reviewed by me-hyperinflation. Tubular heart. Some infiltrates COVID PCR test reported positive from the [facility] Assessment and plan: -Bilateral COVID 19 pneumonia Dexamethasone 6 mg daily., Zinc, vitamin C, vitamin D. IV Remdesivir given. Changed to by mouth prednisone. -Acute bilateral pulmonary embolism *Xarelto -Questionable lung mass and new pneumatocele Follow pulmonary -Acute hypoxic respiratory failure from COVID 19 pneumonia.: Better Pulse ox was reported to drop in the 80s at the [facility]. 3 L nasal cannula -Acute exacerbation of advanced prednisone dependent COPD in a previous smoker Dexamethasone. Symbicort with spacer. Albuterol -Moderate protein calorie malnutrition from decreased oral intake Dietitian . ensure. -Chronic medical debility -Essential hypertension Cozaar 25 mg daily -GERD Protonix 40 mg daily Disposition: [facility]/[place] Plan - Discharge Summary Discharge Rx Participant: No New Discharge Prescriptions: New Acetaminophen Tab [Tylenol] 500 mg PO Q6HR PRN tab PRN Reason: Fever And/ Or Pain Cholecalciferol [Vitamin D3 (25 Mcg = 1000 Iu)] 100 mcg PO DAILY tablet Rivaroxaban [Xarelto] 15 mg PO BID-W/MEALS tab Zinc Sulfate [Orazinc] 220 mg PO DAILY cap Ascorbic Acid [Vitamin C] 1,000 mg PO DAILY tab Continue Budesonide-Formot 160-4.5 Mcg [Symbicort 160-4.5 Mcg Inhaler] 2 puff INHALATION RT-BID@0800,1700 Sodium Chloride [Saline Nasal [place]] 1 spray EA NOSTRIL Q2H PRN PRN Reason: Congestion Magnesium Hydroxide [Milk of Magnesia Concentrate] 7,200 mg PO DAILY PRN PRN Reason: Constipation Ipratropium-Albuterol Nebulize [Duoneb 0.5 mg-3 mg/3 ml Soln] 3 ml INHALATION RT-Q6H PRN PRN Reason: Shortness Of Breath Na Phos,M-B/Na Phos,Di-Ba [Fleet Adult] 133 ml RECTAL DAILY PRN PRN Reason: Constipation bisacodyL [Dulcolax] 10 mg RECTAL DAILY PRN PRN Reason: Constipation predniSONE 10 mg PO DAILY@0800 HYDROcodone/APAP 5-325MG [Egan 5-325] 1 tab PO Q6H PRN #12 tab PRN Reason: Pain Lactose-Reduced Food [Ensure Plus] 1 can PO TID@0800,1200,1700 Ipratropium-Albuterol Nebulize [Duoneb 0.5 mg-3 mg/3 ml Soln] 3 ml INHALATION RT-QID levETIRAcetam ORAL SOLN [Keppra Oral Soln] 500 mg PO BID@0800,2100 Pantoprazole [Protonix] 40 mg PO DAILY@0800 Losartan [Cozaar] 25 mg PO DAILY@0800 fentaNYL 25MCG/HR PATCH [Duragesic 25MCG/HR] 1 patch TRANSDERM Q72H #1 patch Lidocaine 5% Patch [Lidoderm 5% Patch] 1 patch TOPICAL DAILY #3 patch ALPRAZolam [Xanax] 0.25 mg PO BID PRN #6 tab PRN Reason: ANXIETY, UNTIL 10/26/20 Changed Loratadine [Claritin] 5 mg PO BID #0 Discontinued Acetaminophen Suppository 1 dose RECTAL Q6H PRN PRN Reason: Pain Or Fever > 100.5 Discharge Medication List Budesonide-Formot 160-4.5 Mcg [Symbicort 160-4.5 Mcg Inhaler] 2 puff INHALATION RT-BID@0800,1700 06/28/19 [History] Ipratropium-Albuterol Nebulize [Duoneb 0.5 mg-3 mg/3 ml Soln] 3 ml INHALATION RT-Q6H PRN 10/16/20 [History] Ipratropium-Albuterol Nebulize [Duoneb 0.5 mg-3 mg/3 ml Soln] 3 ml INHALATION RT-QID 10/16/20 [History] Lactose-Reduced Food [Ensure Plus] 1 can PO TID@0800,1200,1700 10/16/20 [History] Losartan [Cozaar] 25 mg PO DAILY@0800 10/16/20 [History] Magnesium Hydroxide [Milk of Magnesia Concentrate] 7,200 mg PO DAILY PRN 10/16/20 [History] Na Phos,M-B/Na Phos,Di-Ba [Fleet Adult] 133 ml RECTAL DAILY PRN 10/16/20 [History] Pantoprazole [Protonix] 40 mg PO DAILY@0800 10/16/20 [History] Sodium Chloride [Saline Nasal [place]] 1 spray EA NOSTRIL Q2H PRN 10/16/20 [History] bisacodyL [Dulcolax] 10 mg RECTAL DAILY PRN 10/16/20 [History] levETIRAcetam ORAL SOLN [Keppra Oral Soln] 500 mg PO BID@0800,2100 10/16/20 [History] predniSONE 10 mg PO DAILY@0800 10/16/20 [History] ALPRAZolam [Xanax] 0.25 mg PO BID PRN #6 tab 10/22/20 [Rx] Acetaminophen Tab [Tylenol] 500 mg PO Q6HR PRN tab 10/22/20 [Rx] Ascorbic Acid [Vitamin C] 1,000 mg PO DAILY tab 10/22/20 [Rx] Cholecalciferol [Vitamin D3 (25 Mcg = 1000 Iu)] 100 mcg PO DAILY tablet 10/22/20 [Rx] HYDROcodone/APAP 5-325MG [Egan 5-325] 1 tab PO Q6H PRN #12 tab 10/22/20 [Rx] Lidocaine 5% Patch [Lidoderm 5% Patch] 1 patch TOPICAL DAILY #3 patch 10/22/20 [Rx] Loratadine [Claritin] 5 mg PO BID #0 10/22/20 [Rx] Rivaroxaban [Xarelto] 15 mg PO BID-W/MEALS tab 10/22/20 [Rx] Zinc Sulfate [Orazinc] 220 mg PO DAILY cap 10/22/20 [Rx] fentaNYL 25MCG/HR PATCH [Duragesic 25MCG/HR] 1 patch TRANSDERM Q72H #1 patch 10/22/20 [Rx] Follow up Appointment(s)/Referral(s): Jabari Granado DO [Primary Care Provider] - 1-2 days
[2020-10-22] MEDS: LIDOCAINE 5% PATCH TOPICAL SCH (16:51)
--- NOTE | 2020-10-22 18:19 | PN ---
PROGRESS NOTE DATE OF SERVICE: 10/22/2020 REASON FOR FOLLOW UP: Covid 19 pneumonia. INTERVAL HISTORY: The patient is afebrile. The patient is breathing comfortably. Denies having any chest pain. Did have a cough, not bringing up any sputum. No vomiting. No abdominal pain. No diarrhea. PHYSICAL EXAMINATION: Blood pressure 131/68 with a pulse of 80, temperature 98.2. She is 96% on 3 L nasal cannula. General description is an elderly female up in the bed in no distress. Respiratory system: Unlabored breathing, decreased intensity of breath sounds. No wheeze. Heart: S1, S2. Regular rate and rhythm. Abdomen soft, no tenderness. LABS: Hemoglobin 11.4, white count 9.8, BUN of 20, creatinine 0.4. DIAGNOSTIC IMPRESSION AND PLAN: Patient admitted to the hospital with acute COVID-19 pneumonia with PE. The patient is currently covered with Xarelto, Remdesivir, zinc, ascorbic acid, respiratory support to continue while monitoring clinical course closely. Continue supportive care. MMODL / IJN: [id number] /
== END 2020-10-22 18:32 | DRG 177 ==
LOC: EC 18:56 → 4SSUR 20:34
PROVIDERS: ADMIT Hospitalist; ATTEND Hospitalist
PROC: XW033E5 Introduction of Remdesivir Anti-infective into Peripheral Vein, Percutaneous Approach, New Technology Group 5 (ICD-10-PCS; principal; 2020-10-19)
DX: U07.1 COVID-19 (principal); J12.82 Pneumonia due to coronavirus disease 2019; I26.99 Other pulmonary embolism without acute cor pulmonale; J15.5 Pneumonia due to Escherichia coli; J96.01 Acute respiratory failure with hypoxia; D68.59 Other primary thrombophilia; J44.0 Chronic obstructive pulmonary disease with (acute) lower respiratory infection; J44.1 Chronic obstructive pulmonary disease with (acute) exacerbation; E44.0 Moderate protein-calorie malnutrition; F41.9 Anxiety disorder, unspecified; G40.909 Epilepsy, unspecified, not intractable, without status epilepticus; H91.90 Unspecified hearing loss, unspecified ear; I10 Essential (primary) hypertension; I27.21 Secondary pulmonary arterial hypertension; K21.9 Gastro-esophageal reflux disease without esophagitis; R62.7 Adult failure to thrive; Z80.52 Family history of malignant neoplasm of bladder; Z82.49 Family history of ischemic heart disease and other diseases of the circulatory system; Z83.3 Family history of diabetes mellitus; Z86.14 Personal history of Methicillin resistant Staphylococcus aureus infection; Z86.73 Personal history of transient ischemic attack (TIA), and cerebral infarction without residual deficits; Z79.899 Other long term (current) drug therapy; Z87.891 Personal history of nicotine dependence; Z79.52 Long term (current) use of systemic steroids; Z79.51 Long term (current) use of inhaled steroids; E86.0 Dehydration
CPT/HCPCS: 36415; 71045; 71046; 71275; 80053; 82550; 83605; 83615; 83735; 83880; 84145; 84484; 85025; 85379; 85610; 85730; 86140; 86769; 87040; 87449; 93005; 94640; 94760

== ENCOUNTER 2020-11-03 04:12 | Inpatient (IN) | payer MEDICARE, BC ==
[2020-11-03] MEDS ORDERED: SODIUM CHLORIDE 0.9% 500 ML 500 ML IV STA (04:26)
[2020-11-03] MEDS ORDERED: SODIUM CHLORIDE 0.9% 1,000 ML IV STA ×2 (04:26)
[2020-11-03] MEDS ORDERED: IPRATROPIUM-ALBUTEROL 3 ML NEB INHALATION STA (04:26)
[2020-11-03] MEDS ORDERED: methylPREDNISolone SOD SUCCI 125 MG/2 ML VIAL IV STA (04:26)
--- NOTE | 2020-11-03 04:29 | ED ---
SOB HPI - General Chief Complaint: Shortness of Breath Stated Complaint: KAMI Time Seen by Provider: 11/03/20 04:14 Source: patient, RN/MD, EMS, RN notes reviewed, old records reviewed Mode of arrival: EMS Limitations: no limitations - History of Present Illness MD Complaint: shortness of breath, cough, "asthma attack", anxiety -: days(s) Severity: severe Severity scale (1-10): 10 Quality: dull, throbbing Consistency: constant Improves With: nothing Worsens With: exertion, movement, coughing, inspiration Known History Of: COPD Context: recent URI, recent illness Associated Symptoms: fever, cough, sputum production Treatments Prior to Arrival: none - Related Data Home Medications Medication Instructions Recorded Confirmed Budesonide-Formot 160-4.5 Mcg 2 puff INHALATION RT-BID@0800,1700 06/28/19 11/03/20 [Symbicort 160-4.5 Mcg Inhaler] Ipratropium-Albuterol Nebulize 3 ml INHALATION RT-Q6H PRN 10/16/20 11/03/20 [Duoneb 0.5 mg-3 mg/3 ml Soln] Ipratropium-Albuterol Nebulize 3 ml INHALATION RT-QID 10/16/20 11/03/20 [Duoneb 0.5 mg-3 mg/3 ml Soln] Lactose-Reduced Food [Ensure Plus] 120 ml PO TID@0800,1200,1700 10/16/20 11/03/20 Losartan [Cozaar] 25 mg PO DAILY@0800 10/16/20 11/03/20 Magnesium Hydroxide [Milk of 7,200 mg PO DAILY PRN 10/16/20 11/03/20 Magnesia Concentrate] Na Phos,M-B/Na Phos,Di-Ba [Fleet 133 ml RECTAL DAILY PRN 10/16/20 11/03/20 Adult] Pantoprazole [Protonix] 40 mg PO DAILY@0800 10/16/20 11/03/20 Sodium Chloride [Saline Nasal 1 spray EA NOSTRIL Q2H PRN 10/16/20 11/03/20 [place]] bisacodyL [Dulcolax] 10 mg RECTAL DAILY PRN 10/16/20 11/03/20 levETIRAcetam ORAL SOLN [Keppra 500 mg PO BID@0800,2100 10/16/20 11/03/20 Oral Soln] predniSONE 10 mg PO DAILY@0800 10/16/20 11/03/20 Ascorbic Acid [Vitamin C] 1,000 mg PO DAILY@1700 11/03/20 11/03/20 Cholecalciferol [Vitamin D3 (25 100 mcg PO DAILY@1700 11/03/20 11/03/20 Mcg = 1000 Iu)] Loratadine [Claritin] 5 mg PO BID@0800,1700 11/03/20 11/03/20 Menthol/Zinc Oxide [Calmoseptine 1 applic TOPICAL BID 11/03/20 11/03/20 Ointment] Previous Rx's Medication Instructions Recorded Acetaminophen Tab [Tylenol] 500 mg PO Q6HR PRN tab 10/22/20 ALPRAZolam [Xanax] 0.25 mg PO BID PRN #6 tab 11/09/20 HYDROcodone/APAP 5-325MG [[place] 1 tab PO Q4H PRN #18 tab 11/09/20 5-325] Levofloxacin [Levaquin] 500 mg PO DAILY 1 Days #7 tab 11/09/20 Lidocaine 5% Patch [Lidoderm 5% 1 patch TOPICAL DAILY@0800 #3 patch 11/09/20 Patch] Melatonin 3 mg PO HS PRN tablet 11/09/20 Rivaroxaban [Xarelto] 20 mg PO DAILY #1 tab 11/09/20 Allergies Allergy/AdvReac Type Severity Reaction Status Date / Time aspirin AdvReac excessive Verified 11/03/20 06:25 brusing Review of Systems ROS Statement: Those systems with pertinent positive or pertinent negative responses have been documented in the HPI. ROS Other: All systems not noted in ROS Statement are negative. 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 History of Any Multi-Drug Resistant Organisms: MRSA Date of last positivie culture/infection: 07/24/19 MDRO Source:: MRSA SPUTUM Past Surgical History: Appendectomy, Tonsillectomy Additional Past Surgical History / Comment(s): Bilateral cataracts Past Anesthesia/Blood Transfusion Reactions: No Reported Reaction Past Psychological History: Anxiety Smoking Status: Former smoker Past Alcohol Use History: None Reported Past Drug Use History: None Reported - Past Family History Mother Family Medical History: Myocardial Infarction ([place]) Additional Family Medical History / Comment(s): Mother from a ruptured brain aneurysm, history of a heart attack Father Family Medical History: Diabetes Mellitus Additional Family Medical History / Comment(s): "heart problems" Father from bladder cancer , General Exam Limitations: no limitations General appearance: alert, in no apparent distress, anxious, in distress Head exam: Present: atraumatic, normocephalic, normal inspection Eye exam: Present: normal appearance, PERRL, EOMI. Absent: scleral icterus, conjunctival injection, periorbital swelling ENT exam: Present: normal exam, mucous membranes moist Neck exam: Present: normal inspection. Absent: tenderness, meningismus, lymphadenopathy Respiratory exam: Present: respiratory distress, wheezes, accessory muscle use, decreased breath sounds, prolonged expiratory. Absent: rales, rhonchi, stridor Cardiovascular Exam: Present: regular rate, normal rhythm, normal heart sounds. Absent: systolic murmur, diastolic murmur, rubs, gallop, clicks GI/Abdominal exam: Present: soft, normal bowel sounds. Absent: distended, tenderness, guarding, rebound, rigid Extremities exam: Present: normal inspection, full ROM, normal capillary refill. Absent: tenderness, pedal edema, joint swelling, calf tenderness Back exam: Present: normal inspection Neurological exam: Present: alert, oriented X3, CN II-XII intact Psychiatric exam: Present: normal affect, normal mood Skin exam: Present: warm, dry, intact, normal color. Absent: rash Course Vital Signs 11/03/20 11/03/20 11/03/20 04:15 04:27 04:54 Temperature 99.0 F Pulse Rate 100 100 Respiratory 20 24 Rate Blood Pressure 125/90 O2 Sat by Pulse 98 Oximetry 11/03/20 11/03/20 11/03/20 05:02 05:08 05:30 Temperature Pulse Rate 104 H 101 H 104 H Respiratory 22 20 Rate Blood Pressure 107/69 122/73 O2 Sat by Pulse 100 99 Oximetry 11/03/20 11/03/20 11/03/20 06:00 06:30 07:43 Temperature Pulse Rate 99 95 92 Respiratory 20 20 Rate Blood Pressure 114/76 122/64 O2 Sat by Pulse 100 98 Oximetry 11/03/20 11/03/20 11/03/20 08:06 08:14 11:25 Temperature Pulse Rate 102 H 107 H 86 Respiratory 16 16 Rate Blood Pressure 116/73 94/63 O2 Sat by Pulse 98 99 Oximetry 11/03/20 11/03/20 11/03/20 11:50 12:20 15:41 Temperature Pulse Rate 82 105 H 100 Respiratory 16 Rate Blood Pressure 102/65 O2 Sat by Pulse 99 Oximetry 11/03/20 11/03/20 11/03/20 15:54 16:28 17:28 Temperature Pulse Rate 102 H 96 87 Respiratory 16 16 Rate Blood Pressure 111/65 103/64 O2 Sat by Pulse 98 100 Oximetry - Reevaluation(s) Reevaluation #1: 11/03/20 Medical record is reviewed Symptoms are not improved here in the emergency department Patient informed results and questions answered Patient is in significant acute distress Medical Decision Making - Lab Data Result diagrams: 11/06/20 07:46 11/06/20 07:46 Lab Results 11/03/20 11/03/20 11/03/20 Range/Units 04:30 04:30 04:30 WBC 17.6 H (3.8-10.6) k/uL RBC 4.04 (3.80-5.40) m/uL Hgb 11.7 (11.4-16.0) gm/dL Hct 35.9 (34.0-46.0) % MCV 88.9 (80.0-100.0) fL MCH 28.9 (25.0-35.0) pg MCHC 32.5 (31.0-37.0) g/dL RDW 14.9 (11.5-15.5) % Plt Count 426 (150-450) k/uL MPV 7.2 Neutrophils % 86 % Lymphocytes % 5 % Monocytes % 4 % Eosinophils % 4 % Basophils % 1 % Neutrophils # 15.1 H (1.3-7.7) k/uL Lymphocytes # 0.9 L (1.0-4.8) k/uL Monocytes # 0.7 (0-1.0) k/uL Eosinophils # 0.6 (0-0.7) k/uL Basophils # 0.1 (0-0.2) k/uL PT 12.7 H (9.0-12.0) sec INR 1.2 H (<1.2) APTT 26.0 (22.0-30.0) sec Sodium (137-145) mmol/L Potassium (3.5-5.1) mmol/L Chloride (98-107) mmol/L Carbon Dioxide (22-30) mmol/L Anion Gap mmol/L BUN (7-17) mg/dL Creatinine (0.52-1.04) mg/dL Est GFR (CKD-EPI)AfAm (>60 ml/min/1.73 sqM) Est GFR (CKD-EPI)NonAf (>60 ml/min/1.73 sqM) Glucose (74-99) mg/dL Plasma Lactic Acid Andres (0.7-2.0) mmol/L Calcium (8.4-10.2) mg/dL Phosphorus (2.5-4.5) mg/dL Magnesium (1.6-2.3) mg/dL Total Bilirubin (0.2-1.3) mg/dL AST (14-36) U/L ALT (4-34) U/L Alkaline Phosphatase (38-126) U/L Lactate Dehydrogenase (313-618) U/L Creatine Kinase (30-135) U/L Troponin I (0.000-0.034) ng/mL C-Reactive Protein (<1.0) mg/dL NT-Pro-B Natriuret Pep pg/mL Total Protein (6.3-8.2) g/dL Albumin (3.5-5.0) g/dL Lipase (23-300) U/L Urine Color Yellow Urine Appearance Cloudy H (Clear) Urine pH 7.0 (5.0-8.0) Ur Specific [place] 1.018 (1.001-1.035) Urine Protein Trace H (Negative) Urine Glucose (UA) Negative (Negative) Urine Ketones Negative (Negative) Urine Blood Negative (Negative) Urine Nitrite Negative (Negative) Urine Bilirubin Negative (Negative) Urine Urobilinogen <2.0 (<2.0) mg/dL Ur Leukocyte Esterase Large H (Negative) Urine RBC 3 (0-5) /hpf Urine WBC >182 H (0-5) /hpf Urine Bacteria Few H (None) /hpf Urine Mucus Rare H (None) /hpf 11/03/20 11/03/20 11/03/20 Range/Units 04:30 04:30 04:30 WBC (3.8-10.6) k/uL RBC (3.80-5.40) m/uL Hgb (11.4-16.0) gm/dL Hct (34.0-46.0) % MCV (80.0-100.0) fL MCH (25.0-35.0) pg MCHC (31.0-37.0) g/dL RDW (11.5-15.5) % Plt Count (150-450) k/uL MPV Neutrophils % % Lymphocytes % % Monocytes % % Eosinophils % % Basophils % % Neutrophils # (1.3-7.7) k/uL Lymphocytes # (1.0-4.8) k/uL Monocytes # (0-1.0) k/uL Eosinophils # (0-0.7) k/uL Basophils # (0-0.2) k/uL PT (9.0-12.0) sec INR (<1.2) APTT (22.0-30.0) sec Sodium 134 L (137-145) mmol/L Potassium 4.5 (3.5-5.1) mmol/L Chloride 101 (98-107) mmol/L Carbon Dioxide 30 (22-30) mmol/L Anion Gap 3 mmol/L BUN 23 H (7-17) mg/dL Creatinine 0.31 L (0.52-1.04) mg/dL Est GFR (CKD-EPI)AfAm >90 (>60 ml/min/1.73 sqM) Est GFR (CKD-EPI)NonAf >90 (>60 ml/min/1.73 sqM) Glucose 94 (74-99) mg/dL Plasma Lactic Acid Andres 0.9 (0.7-2.0) mmol/L Calcium 9.3 (8.4-10.2) mg/dL Phosphorus 3.5 (2.5-4.5) mg/dL Magnesium 1.8 (1.6-2.3) mg/dL Total Bilirubin 0.9 (0.2-1.3) mg/dL AST 23 (14-36) U/L ALT 17 (4-34) U/L Alkaline Phosphatase 85 (38-126) U/L Lactate Dehydrogenase (313-618) U/L Creatine Kinase <20 L (30-135) U/L Troponin I <0.012 (0.000-0.034) ng/mL C-Reactive Protein 16.7 H (<1.0) mg/dL NT-Pro-B Natriuret Pep pg/mL Total Protein 6.1 L (6.3-8.2) g/dL Albumin 2.7 L (3.5-5.0) g/dL Lipase 15 L (23-300) U/L Urine Color Urine Appearance (Clear) Urine pH (5.0-8.0) Ur Specific [place] (1.001-1.035) Urine Protein (Negative) Urine Glucose (UA) (Negative) Urine Ketones (Negative) Urine Blood (Negative) Urine Nitrite (Negative) Urine Bilirubin (Negative) Urine Urobilinogen (<2.0) mg/dL Ur Leukocyte Esterase (Negative) Urine RBC (0-5) /hpf Urine WBC (0-5) /hpf Urine Bacteria (None) /hpf Urine Mucus (None) /hpf 11/03/20 11/03/20 Range/Units 04:30 04:30 WBC (3.8-10.6) k/uL RBC (3.80-5.40) m/uL Hgb (11.4-16.0) gm/dL Hct (34.0-46.0) % MCV (80.0-100.0) fL MCH (25.0-35.0) pg MCHC (31.0-37.0) g/dL RDW (11.5-15.5) % Plt Count (150-450) k/uL MPV Neutrophils % % Lymphocytes % % Monocytes % % Eosinophils % % Basophils % % Neutrophils # (1.3-7.7) k/uL Lymphocytes # (1.0-4.8) k/uL Monocytes # (0-1.0) k/uL Eosinophils # (0-0.7) k/uL Basophils # (0-0.2) k/uL PT (9.0-12.0) sec INR (<1.2) APTT (22.0-30.0) sec Sodium (137-145) mmol/L Potassium (3.5-5.1) mmol/L Chloride (98-107) mmol/L Carbon Dioxide (22-30) mmol/L Anion Gap mmol/L BUN (7-17) mg/dL Creatinine (0.52-1.04) mg/dL Est GFR (CKD-EPI)AfAm (>60 ml/min/1.73 sqM) Est GFR (CKD-EPI)NonAf (>60 ml/min/1.73 sqM) Glucose (74-99) mg/dL Plasma Lactic Acid Andres (0.7-2.0) mmol/L Calcium (8.4-10.2) mg/dL Phosphorus (2.5-4.5) mg/dL Magnesium (1.6-2.3) mg/dL Total Bilirubin (0.2-1.3) mg/dL AST (14-36) U/L ALT (4-34) U/L Alkaline Phosphatase (38-126) U/L Lactate Dehydrogenase 691 H (313-618) U/L Creatine Kinase (30-135) U/L Troponin I (0.000-0.034) ng/mL C-Reactive Protein (<1.0) mg/dL NT-Pro-B Natriuret Pep 441 pg/mL Total Protein (6.3-8.2) g/dL Albumin (3.5-5.0) g/dL Lipase (23-300) U/L Urine Color Urine Appearance (Clear) Urine pH (5.0-8.0) Ur Specific [place] (1.001-1.035) Urine Protein (Negative) Urine Glucose (UA) (Negative) Urine Ketones (Negative) Urine Blood (Negative) Urine Nitrite (Negative) Urine Bilirubin (Negative) Urine Urobilinogen (<2.0) mg/dL Ur Leukocyte Esterase (Negative) Urine RBC (0-5) /hpf Urine WBC (0-5) /hpf Urine Bacteria (None) /hpf Urine Mucus (None) /hpf - EKG Data -: EKG Interpreted by Me (EKG shows sinus tachycardia 107 UT 126 QRS 90 QTC 464) Critical Care Time Critical Care Time: Yes Total Critical Care Time: 31 Disposition Clinical Impression: Acute exacerbation of chronic obstructive airways disease, COPD exacerbation, COVID-19, Hypoxemia, Community acquired pneumonia, Pneumonia Disposition: ADMITTED IP TO THIS HOSP Condition: Fair Is patient prescribed a controlled substance at d/c from ED?: No
--- NOTE | 2020-11-03 04:56 | XR ---
EXAMINATION TYPE: XR chest 1V portable DATE OF EXAM: 11/03/2020 COMPARISON: 10/21/2020 HISTORY: Pneumonia. Short of breath TECHNIQUE: Single view FINDINGS: There is coarse infiltrate at the left lung base and also right upper lobe. There is some c oalescent density right upper lobe medially. Heart size is normal. Heart is deviated slightly to the left side. There is no gross heart failure. There is flattening of the diaphragm. Thoracic aorta is a theromatous. IMPRESSION: Bilateral pneumonia which is slightly worse than old exam. Emphysema. Atheromatous aorta.
[2020-11-03 05:15] LABS: Basophils # (A) 0.1 k/uL (0-0.2); Basophils % (A) 1 %; Eosinophils # (A) 0.6 k/uL (0-0.7); Eosinophils % (A) 4 %; HCT 35.9 % (34.0-46.0); HGB 11.7 gm/dL (11.4-16.0); Lymphocytes # (A) 0.9 k/uL (1.0-4.8); Lymphocytes % (A) 5 %; MCH 28.9 pg (25.0-35.0); MCHC 32.5 g/dL (31.0-37.0); MCV 88.9 fL (80.0-100.0); Mean Platelet Volume 7.2; Monocytes # (A) 0.7 k/uL (0-1.0); Monocytes % (A) 4 %; Neutrophils # (A) 15.1 k/uL (1.3-7.7); Neutrophils % (A) 86 %; Platelet Count 426 k/uL (150-450); RBC 4.04 m/uL (3.80-5.40); RDW 14.9 % (11.5-15.5); WBC 17.6 k/uL (3.8-10.6)
[2020-11-03 05:30] LABS: ALT 17 U/L (4-34); AST 23 U/L (14-36); African American GFR (CKD) >90 (>60 ml/min/1.73 sqM); Albumin 2.7 g/dL (3.5-5.0); Alkaline Phosphatase 85 U/L (38-126); Anion Gap 3 mmol/L; Blood Urea Nitrogen 23 mg/dL (7-17); Calcium 9.3 mg/dL (8.4-10.2); Carbon Dioxide 30 mmol/L (22-30); Chloride 101 mmol/L (98-107); Creatine Kinase <20 U/L (30-135); Glucose 94 mg/dL (74-99); Lipase 15 U/L (23-300); Magnesium 1.8 mg/dL (1.6-2.3); Non-African American GFR(CKD) >90 (>60 ml/min/1.73 sqM); Phosphorus 3.5 mg/dL (2.5-4.5); Potassium 4.5 mmol/L (3.5-5.1); Sodium 134 mmol/L (137-145); Total Bilirubin 0.9 mg/dL (0.2-1.3); Total Protein 6.1 g/dL (6.3-8.2)
[2020-11-03 05:41] LABS: C Reactive Protein 16.7 mg/dL (<1.0)
[2020-11-03 05:43] LABS: INR 1.2 (<1.2); Prothrombin Time 12.7 sec (9.0-12.0)
[2020-11-03] MEDS ORDERED: AZITHROMYCIN 500 MG in SODIUM CHLORIDE 0.9% 250 ML IVPB STA (05:44)
[2020-11-03] MEDS ORDERED: PIPERACILLIN-TAZOBACTAM 3.375 GM in SODIUM CHLORIDE 0.9% 100 ML IVPB STA (05:44)
[2020-11-03] MEDS ORDERED: PNEUMONIA PROTOCOL UTILIZED 1 EACH MISC PO PRN (05:44)
[2020-11-03] MEDS: SODIUM CHLORIDE 0.9% 1,000 ML IV SCH ×2 (06:05→17:33)
[2020-11-03 06:16] LABS: Appearance,Urine Cloudy (Clear); Bacteria,Urine Few /hpf; Bilirubin,Urine Negative (Negative); Blood,Urine Negative (Negative); Color,Urine Yellow; Glucose,Urine (UA) Negative (Negative); Ketones,Urine Negative (Negative); Leukocyte Esterase,Urine Large (Negative); Mucus,Urine Rare /hpf; Nitrite,Urine Negative (Negative); Protein,Urine Trace (Negative); RBC,Urine 3 /hpf (0-5); Specific Gravity,Urine 1.018 (1.001-1.035); Urobilinogen,Urine <2.0 mg/dL (<2.0); WBC,Urine >182 /hpf (0-5)
[2020-11-03] MEDS: ALBUTEROL NEBULIZED 2.5 MG/3 ML INHALATION PRN ×2 (07:38→11:43)
--- NOTE | 2020-11-03 10:53 | P.CNPUL ---
History of Present Illness Consult date: 11/03/20 Reason for consult: COPD History of present illness: This is a 80-year-old here patient is coming in for shortness of breath. The patient was in the hospital and she was seen in consultation back in 10/19/2020 and she was diagnosed having bilateral COVID-19 related pneumonia and acute pulmonary embolism and hypoxic respiratory failure. She is also known to have advanced COPD and she has moderate protein calorie malnutrition. Other medical problems of hypertension and acid reflux and she has chronic medical debility. The patient was treated on an inpatient basis with steroids, she was given multivitamin and Remdesivir and she was discharged on prednisone burst taper and Xarelto. She was also having oxygen saturation she was given O2 at a time of discharge. She was discharged to [facility]. Her CODE STATUS is full. The patient came back to the emergency department yesterday because of worsening shortness of breath. The white cell count was at 17.6 with a hemoglobin of 11.7. The chest x-ray showed emphysema and chronic fibrotic changes especially in the right upper lobe. There are also some tiny bilateral pleural effusions. Comparing to the earlier chest x-ray from 10/21/2020, the film is underpenetrated. No significant abnormalities seen in comparison. There is also thoracic kyphoscoliosis to the left. The current electrodes are normal. BUN is 23 and a creatinine of 0.3. The proBNP level is at 141. CRP is at 16.7. Troponin was less than 0.01. LDH level was 691. UA was consistent with an infection as the patient had bacteria and increased white cell counts. Coagulation profile was within normal limits. Reviewed the CAT scan of the chest from June 2020. The patient has extensive incidences emphysematous change with an upper lobe predominance. There is a large bolus also occupying the right upper lobe and adjacent scarring and fibrosis. Not appreciate any groundglass changes that could typically accompany COVID-19 related pneumonia. Nevertheless, there was extensive emphysematous changes bilaterally with centrilobular changes. There was also evidence of pulmonary artery hypertension and small effusions. As for the irregular opacity in the posterior margin of the right upper lobe, this was felt to be probably a scar although malignancy could not be excluded. Measuring 1.5 x 0.9 cm in size. This was at the posterior margin of the pneumatocele/bolus. In addition there was a chronic T12 compression fracture deformity of the thoracic spine. At this point in time the patient off IV tigecycline by nasal cannula. The patient is also on IV Zosyn, Zithromax, IV fluids with normal sed rate of 136 an hour and albuterol nebulized treatments every 4 hours only on a when necessary basis. Noted the patient was taking 10 mg of prednisone as maintenance. She was also using Symbicort at home 2 puffs twice a day and DuoNeb nebulized treatments around the clock 4 times a day. Review of Systems Constitutional: Reports fatigue, Reports weakness Eyes: denies as per HPI, denies blurred vision, denies bulging eye, denies decreased vision, denies diplopia, denies discharge, denies dry eye, denies irritation, denies itching, denies pain, denies photophobia, denies loss of peripheral vision, denies loss of vision, denies tunnel vision/blind spots Ears: deny: decreased hearing, ear discharge, earache, tinnitus Ears, nose, mouth and throat: Denies headache, Denies sore throat Breasts: absent: as per HPI, change in shape, gynecomastia, masses, nipple discharge, pain, skin changes, swelling Cardiovascular: Reports decreased exercise tolerance, Reports dyspnea on exertion Respiratory: Reports cough, Reports dyspnea, Reports excessive sputum, Reports home oxygen, Reports respiratory infections, Reports wheezing Gastrointestinal: Reports as per HPI Genitourinary: Reports as per HPI Menstruation: Reports as per HPI Musculoskeletal: Reports as per HPI Musculoskeletal: absent: ankle pain, ankle stiffness, ankle swelling Integumentary: Reports as per HPI Neurological: Reports as per HPI Psychiatric: Reports as per HPI Endocrine: Reports as per HPI, Reports fatigue Hematologic/Lymphatic: Reports as per HPI Allergic/Immunologic: Reports as per HPI Past Medical History Past Medical History: COPD, CVA/TIA, Pneumonia, Respiratory Disorder Additional Past Medical History / Comment(s): cataracts(sx done), "bruises easil y-thin fragile skin", lower dental bridge, CVA September. History of Any Multi-Drug Resistant Organisms: MRSA Date of last positivie culture/infection: 07/24/19 MDRO Source:: MRSA SPUTUM Past Surgical History: Appendectomy, Tonsillectomy Additional Past Surgical History / Comment(s): Bilateral cataracts Past Anesthesia/Blood Transfusion Reactions: No Reported Reaction Past Psychological History: Anxiety Smoking Status: Former smoker Past Alcohol Use History: None Reported Past Drug Use History: None Reported - Past Family History Mother Family Medical History: Myocardial Infarction ([place]) Additional Family Medical History / Comment(s): Mother from a ruptured brain aneurysm, history of a heart attack Father Family Medical History: Diabetes Mellitus Additional Family Medical History / Comment(s): "heart problems" Father from bladder cancer , Medications and Allergies Home Medications Medication Instructions Recorded Confirmed Type Budesonide-Formot 160-4.5 Mcg 2 puff INHALATION RT-BID@0800,1700 06/28/19 11/03/20 History [Symbicort 160-4.5 Mcg Inhaler] Ipratropium-Albuterol Nebulize 3 ml INHALATION RT-Q6H PRN 10/16/20 11/03/20 History [Duoneb 0.5 mg-3 mg/3 ml Soln] Ipratropium-Albuterol Nebulize 3 ml INHALATION RT-QID 10/16/20 11/03/20 History [Duoneb 0.5 mg-3 mg/3 ml Soln] Lactose-Reduced Food [Ensure Plus] 120 ml PO TID@0800,1200,1700 10/16/20 11/03/20 History Losartan [Cozaar] 25 mg PO DAILY@0800 10/16/20 11/03/20 History Magnesium Hydroxide [Milk of 7,200 mg PO DAILY PRN 10/16/20 11/03/20 History Magnesia Concentrate] Na Phos,M-B/Na Phos,Di-Ba [Fleet 133 ml RECTAL DAILY PRN 10/16/20 11/03/20 History Adult] Pantoprazole [Protonix] 40 mg PO DAILY@0800 10/16/20 11/03/20 History Sodium Chloride [Saline Nasal 1 spray EA NOSTRIL Q2H PRN 10/16/20 11/03/20 History [place]] bisacodyL [Dulcolax] 10 mg RECTAL DAILY PRN 10/16/20 11/03/20 History levETIRAcetam ORAL SOLN [Keppra 500 mg PO BID@0800,2100 10/16/20 11/03/20 History Oral Soln] predniSONE 10 mg PO DAILY@0800 10/16/20 11/03/20 History Acetaminophen Tab [Tylenol] 500 mg PO Q6HR PRN tab 10/22/20 11/03/20 Rx fentaNYL 25MCG/HR PATCH [Duragesic 1 patch TRANSDERM Q72H #1 patch 10/22/20 11/03/20 Rx 25MCG/HR] ALPRAZolam [Xanax] 0.25 mg PO BID PRN 11/03/20 11/03/20 History Ascorbic Acid [Vitamin C] 1,000 mg PO DAILY@1700 11/03/20 11/03/20 History Cholecalciferol [Vitamin D3 (25 100 mcg PO DAILY@1700 11/03/20 11/03/20 History Mcg = 1000 Iu)] HYDROcodone/APAP 5-325MG [[place] 1 tab PO Q4H PRN 11/03/20 11/03/20 History 5-325] Lidocaine 5% Patch [Lidoderm 5% 1 patch TOPICAL DAILY@0800 11/03/20 11/03/20 History Patch] Loratadine [Claritin] 5 mg PO BID@0800,1700 11/03/20 11/03/20 History Menthol/Zinc Oxide [Calmoseptine 1 applic TOPICAL BID 11/03/20 11/03/20 History Ointment] Rivaroxaban [Xarelto] 15 mg PO BID@0800,1700 11/03/20 11/03/20 History Zinc Sulfate [Orazinc] 220 mg PO DAILY@1700 11/03/20 11/03/20 History Allergies Allergy/AdvReac Type Severity Reaction Status Date / Time aspirin AdvReac excessive Verified 11/03/20 06:25 brusing Physical Exam Vitals: Vital Signs Temp Pulse Resp BP Pulse Ox 11/03/20 08:14 107 H 16 116/73 98 11/03/20 08:06 102 H 11/03/20 07:43 92 11/03/20 06:30 95 20 122/64 98 11/03/20 06:00 99 20 114/76 100 11/03/20 05:30 104 H 20 122/73 99 11/03/20 05:08 101 H 22 107/69 100 11/03/20 05:02 104 H 11/03/20 04:54 100 08/25/21 04:27 24 11/03/20 04:15 99.0 F 100 20 125/90 98 Intake and Output 11/02/20 11/03/20 11/03/20 22:59 06:59 14:59 Other: Weight 38.555 kg GENERAL EXAM: Alert, very pleasant, cachectic 79-year-old female patient, on 3 L of oxygen with a pulse ox of 99%, comfortable in no apparent distress., Extremely cachectic and malnourished and may associated. There is significant loss in total body protein mass. She is comfortable and her breathing is nonlabored at this point in time and she is able to speak sentences. HEAD: Normocephalic/atraumatic. EYES: Normal reaction of pupils, equal size. Conjunctiva pink, sclera white. NOSE: Clear with pink turbinates. THROAT: No erythema or exudates. NECK: No masses, no JVD, no thyroid enlargement, no adenopathy. CHEST: No chest wall deformity. Symmetrical expansion. LUNGS: Diminished air entry with inspiratory crackles at the right base, but no wheeze, rhonchi or dullness. She has significant congested cough. Unable to bring up any sputum. CVS: Regular rate and rhythm, normal S1 and S2, no gallops, no murmurs, no rubs ABDOMEN: Soft, nontender. No hepatosplenomegaly, normal bowel sounds, no guarding or rigidity. EXTREMITIES: No clubbing, no edema, no cyanosis, 2+ pulses and upper and lower extremities. MUSCULOSKELETAL: Muscle strength and tone normal. SPINE: No scoliosis or deformity SKIN: No rashes CENTRAL NERVOUS SYSTEM: No focal deficits, tone is normal in all 4 extremities. PSYCHIATRIC: Alert and oriented -3. Appropriate affect. Intact judgment and insight. Results - Laboratory Findings CBC and BMP: 11/03/20 04:30 11/03/20 04:30 ABG WBC 17.6 k/uL (3.8-10.6) H 11/03/20 04:30 RBC 4.04 m/uL (3.80-5.40) 11/03/20 04:30 Hgb 11.7 gm/dL (11.4-16.0) 11/03/20 04:30 Hct 35.9 % (34.0-46.0) 11/03/20 04:30 MCV 88.9 fL (80.0-100.0) 11/03/20 04:30 MCH 28.9 pg (25.0-35.0) 11/03/20 04:30 MCHC 32.5 g/dL (31.0-37.0) 11/03/20 04:30 RDW 14.9 % (11.5-15.5) 11/03/20 04:30 Plt Count 426 k/uL (150-450) 11/03/20 04:30 MPV 7.2 11/03/20 04:30 Neutrophils % 86 % 11/03/20 04:30 Lymphocytes % 5 % 11/03/20 04:30 Monocytes % 4 % 11/03/20 04:30 Eosinophils % 4 % 11/03/20 04:30 Basophils % 1 % 11/03/20 04:30 Neutrophils # 15.1 k/uL (1.3-7.7) H 11/03/20 04:30 Lymphocytes # 0.9 k/uL (1.0-4.8) L 11/03/20 04:30 Monocytes # 0.7 k/uL (0-1.0) 11/03/20 04:30 Eosinophils # 0.6 k/uL (0-0.7) 11/03/20 04:30 Basophils # 0.1 k/uL (0-0.2) 11/03/20 04:30 PT 12.7 sec (9.0-12.0) H 11/03/20 04:30 INR 1.2 (<1.2) H 11/03/20 04:30 APTT 26.0 sec (22.0-30.0) 11/03/20 04:30 Sodium 134 mmol/L (137-145) L 11/03/20 04:30 Potassium 4.5 mmol/L (3.5-5.1) 11/03/20 04:30 Chloride 101 mmol/L (98-107) 11/03/20 04:30 Carbon Dioxide 30 mmol/L (22-30) 11/03/20 04:30 Anion Gap 3 mmol/L 11/03/20 04:30 BUN 23 mg/dL (7-17) H 11/03/20 04:30 Creatinine 0.31 mg/dL (0.52-1.04) L 11/03/20 04:30 Est GFR (CKD-EPI)AfAm >90 (>60 ml/min/1.73 sqM) 11/03/20 04:30 Est GFR (CKD-EPI)NonAf >90 (>60 ml/min/1.73 sqM) 11/03/20 04:30 Glucose 94 mg/dL (74-99) 11/03/20 04:30 Plasma Lactic Acid [place] 0.9 mmol/L (0.7-2.0) 11/03/20 04:30 Calcium 9.3 mg/dL (8.4-10.2) 11/03/20 04:30 Phosphorus 3.5 mg/dL (2.5-4.5) 11/03/20 04:30 Magnesium 1.8 mg/dL (1.6-2.3) 11/03/20 04:30 Total Bilirubin 0.9 mg/dL (0.2-1.3) 11/03/20 04:30 AST 23 U/L (14-36) 11/03/20 04:30 ALT 17 U/L (4-34) 11/03/20 04:30 Alkaline Phosphatase 85 U/L (38-126) 11/03/20 04:30 Lactate Dehydrogenase 691 U/L (313-618) H 11/03/20 04:30 Creatine Kinase <20 U/L (30-135) L 11/03/20 04:30 Troponin I <0.012 ng/mL (0.000-0.034) 11/03/20 04:30 C-Reactive Protein 16.7 mg/dL (<1.0) H 11/03/20 04:30 NT-Pro-B Natriuret Pep 441 pg/mL 11/03/20 04:30 Total Protein 6.1 g/dL (6.3-8.2) L 11/03/20 04:30 Albumin 2.7 g/dL (3.5-5.0) L 11/03/20 04:30 Lipase 15 U/L (23-300) L 11/03/20 04:30 Urine Color Yellow 11/03/20 04:30 Urine Appearance Cloudy (Clear) H 11/03/20 04:30 Urine pH 7.0 (5.0-8.0) 11/03/20 04:30 Ur Specific [place] 1.018 (1.001-1.035) 11/03/20 04:30 Urine Protein Trace (Negative) H 11/03/20 04:30 Urine Glucose (UA) Negative (Negative) 11/03/20 04:30 Urine Ketones Negative (Negative) 11/03/20 04:30 Urine Blood Negative (Negative) 11/03/20 04:30 Urine Nitrite Negative (Negative) 11/03/20 04:30 Urine Bilirubin Negative (Negative) 11/03/20 04:30 Urine Urobilinogen <2.0 mg/dL (<2.0) 11/03/20 04:30 Ur Leukocyte Esterase Large (Negative) H 11/03/20 04:30 Urine RBC 3 /hpf (0-5) 11/03/20 04:30 Urine WBC >182 /hpf (0-5) H 11/03/20 04:30 Urine Bacteria Few /hpf (None) H 11/03/20 04:30 Urine Mucus Rare /hpf (None) H 11/03/20 04:30 PT/INR, D-dimer PT 12.7 sec (9.0-12.0) H 11/03/20 04:30 INR 1.2 (<1.2) H 11/03/20 04:30 Abnormal lab findings: Abnormal Labs 11/03/20 11/03/20 11/03/20 04:30 04:30 04:30 WBC 17.6 H Neutrophils # 15.1 H Lymphocytes # 0.9 L PT 12.7 H INR 1.2 H Sodium BUN Creatinine Lactate Dehydrogenase Creatine Kinase C-Reactive Protein Total Protein Albumin Lipase Urine Appearance Cloudy H Urine Protein Trace H Ur Leukocyte Esterase Large H Urine WBC >182 H Urine Bacteria Few H Urine Mucus Rare H 11/03/20 11/03/20 04:30 04:30 WBC Neutrophils # Lymphocytes # PT INR Sodium 134 L BUN 23 H Creatinine 0.31 L Lactate Dehydrogenase 691 H Creatine Kinase <20 L C-Reactive Protein 16.7 H Total Protein 6.1 L Albumin 2.7 L Lipase 15 L Urine Appearance Urine Protein Ur Leukocyte Esterase Urine WBC Urine Bacteria Urine Mucus - Diagnostic Findings Chest x-ray: image reviewed Assessment and Plan Plan: 1 acute COPD exacerbation. Patient has had multiple hospital admissions for the same. The patient had a recent hospitalization for COVID-19 infection. Although, the review of the CAT scan did not show typical pneumonitis related to cope with. She has been infected with MRSA based on his sputum analysis from July 2019. Her current chest x-ray showing a hematocele in the right upper lobe/bolus in addition to some chronic scarring in the right upper lobe. There is diffuse emphysematous change bilaterally. 2 COPD with chronic hypoxic respiratory failure a she has been on oxygen for many years. Based on our previous evaluation, she had an FEV1 of less than 50% of predicted and she carries more than [id number] smoking history. 3 bilateral pulmonary embolism currently on anticoagulation with Xarelto. 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 7 Poor overall functional performance based on the above-mentioned multiple comorbidities 8 history of seizure disorder 9 history of MRSA in the sputum 10 chronic anxiety 11 pulmonary hypertension probably related to chronic advanced lung disease Plan With the patient on DuoNeb nebulized treatment [id number] IV Solu Medrol 60 every 6 Obtain sputum Gram stain and culture Continue IV Zosyn for now as an empiric antibiotic coverage Continue Xarelto for anticoagulants regarding her recent pulmonary embolism Resume all medications Extremely debilitated, cachectic and malnourished. Carries a very poor prognosis. She had a [facility]. The patient will be offered oxygen and the fluid be titrated to maintain a saturation above 90%. Her COPD is end- stage. She has senile debility along with debility due to a advanced and end- stage COPD. Prognosis extremely poor as mentioned.
[2020-11-03] MEDS ORDERED: SODIUM CHLORIDE 0.65% NASAL SPRAY 44 ML BTL NASAL PRN (10:54)
[2020-11-03] MEDS ORDERED: bisacodyL 10 MG SUPP RECTAL PRN (10:54)
[2020-11-03] MEDS ORDERED: MAGNESIUM HYDROXIDE 2,400 MG/10 ML CUP PO PRN (10:54)
[2020-11-03] MEDS: IPRATROPIUM-ALBUTEROL 3 ML NEB INHALATION SCH ×3 (12:05→21:34)
[2020-11-03] MEDS: PIPERACILLIN-TAZOBACTAM 3.375 GM in SODIUM CHLORIDE 0.9% 100 ML IVPB SCH ×2 (12:18→20:40)
--- NOTE | 2020-11-03 14:11 | P.HPIM ---
History of Present Illness This is a pleasant 80 years old female with past medical history of severe COPD, bilateral pulmonary emboli related to recent infection of coronavirus, chronic anxiety, pulmonary hypertension history of seizure, GERD, hypertension. Patient is poor historian. She was sent from [facility] for dyspnea and hypoxia. Also with increased confusion. She was recently discharged from this hospital on 10/22 for Covid infection and pneumonia in both lungs and pulmonary emboli related to Covid infection, she was discharged on Xarelto Patient denies any abdominal complaints, she is cachectic, she was mildly hypotensive on admission 94/63 on admission, tachycardic with heart rate 102, afebrile. Labs reviewed. Patient has chronic leukocytosis, on discharge last time it was 19.8, today her WBC is 17.6 K. INR is 1.2. BMP is unremarkable with creatinine 0.3 and sodium 134. Lactate dehydrogenase is elevated today at 691, increased C-reactive protein at 16.7 chest x-ray: Bilateral pneumonia with slightly worse than old exam, emphysema EKG: Sinus tachycardia at [address]-T changes. In the emergency room patient was started on Solu-Medrol 1 and Zithromax. Continue with prednisone 10 mg Review of Systems CONSTITUTIONAL: No fever, no malaise, no fatigue. HEENT: No recent visual problems or hearing problems. Denied any sore throat. CARDIOVASCULAR: No orthopnea, PND, no palpitations, no syncope. PULMONARY: No chest wall tenderness, no hemoptysis. GASTROINTESTINAL: No diarrhea, no nausea, no vomiting, no abdominal pain. Normoactive bowel sounds. NEUROLOGICAL: No headaches, no weakness, no numbness. HEMATOLOGICAL: Denies any bleeding or petechiae. GENITOURINARY: Denies any burning micturition, frequency, or urgency. MUSCULOSKELETAL/RHEUMATOLOGICAL: Denies any joint pain, swelling, or any muscle pain. ENDOCRINE: Denies any polyuria or polydipsia. 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 History of Any Multi-Drug Resistant Organisms: MRSA Date of last positivie culture/infection: 07/24/19 MDRO Source:: MRSA SPUTUM Past Surgical History: Appendectomy, Tonsillectomy Additional Past Surgical History / Comment(s): Bilateral cataracts Past Anesthesia/Blood Transfusion Reactions: No Reported Reaction Past Psychological History: Anxiety Smoking Status: Former smoker Past Alcohol Use History: None Reported Past Drug Use History: None Reported - Past Family History Mother Family Medical History: Myocardial Infarction ([place]) Additional Family Medical History / Comment(s): Mother from a ruptured brain aneurysm, history of a heart attack Father Family Medical History: Diabetes Mellitus Additional Family Medical History / Comment(s): "heart problems" Father from bladder cancer , Medications and Allergies Home Medications Medication Instructions Recorded Confirmed Type Budesonide-Formot 160-4.5 Mcg 2 puff INHALATION RT-BID@0800,1700 06/28/19 History [Symbicort 160-4.5 Mcg Inhaler] Ipratropium-Albuterol Nebulize 3 ml INHALATION RT-Q6H PRN 10/16/20 11/03/20 History [Duoneb 0.5 mg-3 mg/3 ml Soln] Ipratropium-Albuterol Nebulize 3 ml INHALATION RT-QID 10/16/20 11/03/20 History [Duoneb 0.5 mg-3 mg/3 ml Soln] Lactose-Reduced Food [Ensure Plus] 120 ml PO TID@0800,1200,1700 10/16/20 11/03/20 History Losartan [Cozaar] 25 mg PO DAILY@0800 10/16/20 11/03/20 History Magnesium Hydroxide [Milk of 7,200 mg PO DAILY PRN 10/16/20 11/03/20 History Magnesia Concentrate] Na Phos,M-B/Na Phos,Di-Ba [Fleet 133 ml RECTAL DAILY PRN 10/16/20 11/03/20 History Adult] Pantoprazole [Protonix] 40 mg PO DAILY@0800 10/16/20 11/03/20 History Sodium Chloride [Saline Nasal 1 spray EA NOSTRIL Q2H PRN 10/16/20 11/03/20 History [place]] bisacodyL [Dulcolax] 10 mg RECTAL DAILY PRN 10/16/20 11/03/20 History levETIRAcetam ORAL SOLN [Keppra 500 mg PO BID@0800,2100 10/16/20 11/03/20 History Oral Soln] predniSONE 10 mg PO DAILY@0800 10/16/20 11/03/20 History Acetaminophen Tab [Tylenol] 500 mg PO Q6HR PRN tab 10/22/20 11/03/20 Rx fentaNYL 25MCG/HR PATCH [Duragesic 1 patch TRANSDERM Q72H #1 patch 10/22/20 11/03/20 Rx 25MCG/HR] ALPRAZolam [Xanax] 0.25 mg PO BID PRN 11/03/20 11/03/20 History Ascorbic Acid [Vitamin C] 1,000 mg PO DAILY@1700 11/03/20 11/03/20 History Cholecalciferol [Vitamin D3 (25 100 mcg PO DAILY@169911/03/20 11/03/20 History Mcg = 1000 Iu)] HYDROcodone/APAP 5-325MG [[place] 1 tab PO Q4H PRN 11/03/20 11/03/20 History 5-325] Lidocaine 5% Patch [Lidoderm 5% 1 patch TOPICAL DAILY@0811/03/20 11/03/20 History Patch] Loratadine [Claritin] 5 mg PO BID@0800,1700 11/03/20 11/03/20 History Menthol/Zinc Oxide [Calmoseptine 1 applic TOPICAL BID 11/03/20 11/03/20 History Ointment] Rivaroxaban [Xarelto] 15 mg PO BID@0800,1700 11/03/20 11/03/20 History Zinc Sulfate [Orazinc] 220 mg PO DAILY@17011/03/20 11/03/20 History Allergies Allergy/AdvReac Type Severity Reaction Status Date / Time aspirin AdvReac excessive Verified 11/03/20 06:25 brusing Physical Exam Vitals: Vital Signs Temp Pulse Resp BP Pulse Ox 11/03/20 08:14 107 H 16 116/73 98 11/03/20 08:06 102 H 11/03/20 07:43 92 11/03/20 06:30 95 20 122/64 98 11/03/20 06:00 99 20 114/76 100 11/03/20 05:30 104 H 20 122/73 99 11/03/20 05:08 101 H 22 107/69 100 11/03/20 05:02 104 H 11/03/20 04:54 100 11/03/20 04:27 24 11/03/20 04:15 99.0 F 100 20 125/90 98 Intake and Output 11/02/20 11/03/20 11/03/20 22:59 06:59 14:59 Other: Weight 38.555 kg GENERAL: The patient is alert and oriented x3, not in any acute distress. Well developed, well nourished. HEENT: Pupils are round and equally reacting to light. EOMI. No scleral icterus. No conjunctival pallor. Normocephalic, atraumatic. No pharyngeal erythema. No thyromegaly. CARDIOVASCULAR: S1 and S2 present. No murmurs, rubs, or gallops. -PULMONARY: Chest is clear to auscultation, bilateral crackles. Acute kidney ABDOMEN: Soft, nontender, nondistended, normoactive bowel sounds. No palpable organomegaly. MUSCULOSKELETAL: No joint swelling or deformity. EXTREMITIES: No cyanosis, clubbing, or pedal edema. NEUROLOGICAL: Gross neurological examination did not reveal any focal deficits. SKIN: No rashes. No petechiae Results CBC & Chem 7: 11/03/20 04:30 11/03/20 04:30 Labs: Abnormal Lab Results - Last 24 Hours (Table) 11/03/20 11/03/20 11/03/20 Range/Units 04:30 04:30 04:30 WBC 17.6 H (3.8-10.6) k/uL Neutrophils # 15.1 H (1.3-7.7) k/uL Lymphocytes # 0.9 L (1.0-4.8) k/uL PT 12.7 H (9.0-12.0) sec INR 1.2 H (<1.2) Sodium (137-145) mmol/L BUN (7-17) mg/dL Creatinine (0.52-1.04) mg/dL Lactate Dehydrogenase (313-618) U/L Creatine Kinase (30-135) U/L C-Reactive Protein (<1.0) mg/dL Total Protein (6.3-8.2) g/dL Albumin (3.5-5.0) g/dL Lipase (23-300) U/L Urine Appearance Cloudy H (Clear) Urine Protein Trace H (Negative) Ur Leukocyte Esterase Large H (Negative) Urine WBC >182 H (0-5) /hpf Urine Bacteria Few H (None) /hpf Urine Mucus Rare H (None) /hpf 11/03/20 11/03/20 Range/Units 04:30 04:30 WBC (3.8-10.6) k/uL Neutrophils # (1.3-7.7) k/uL Lymphocytes # (1.0-4.8) k/uL PT (9.0-12.0) sec INR (<1.2) Sodium 134 L (137-145) mmol/L BUN 23 H (7-17) mg/dL Creatinine 0.31 L (0.52-1.04) mg/dL Lactate Dehydrogenase 691 H (313-618) U/L Creatine Kinase <20 L (30-135) U/L C-Reactive Protein 16.7 H (<1.0) mg/dL Total Protein 6.1 L (6.3-8.2) g/dL Albumin 2.7 L (3.5-5.0) g/dL Lipase 15 L (23-300) U/L Urine Appearance (Clear) Urine Protein (Negative) Ur Leukocyte Esterase (Negative) Urine WBC (0-5) /hpf Urine Bacteria (None) /hpf Urine Mucus (None) /hpf Microbiology - Last 24 Hours (Table) 11/03/20 04:30 Urine Culture - Preliminary Urine,Voided Assessment and Plan Assessment: Bilateral pneumonia, related to Covid infection and possible bacterial superinfection Possible sepsis secondary to above Recent history of bilateral Covid pneumonia Chronic respiratory failure Acute COPD exacerbation Metabolic encephalopathy on the top of dementia Chronic anxiety History of pulmonary hypertension History of seizure History of GERD Hypertension Possible senile dementia Plan: This is a pleasant 80 years old female who presents with COPD, recurrent pneumonia. Zosyn Continue with Solu-Medrol Continue with Xarelto Labs and medication were reviewed.. Continue same treatment. Continue with symptomatic treatment. Resume home medication. Monitor lytes and vitals. DVT and GI prophylaxis. Further recommendations depends on the clinical course of the patient DVT prophylaxis: Xarelto GI Prophylaxis: Ppi Prognosis is guarded
[2020-11-03] MEDS ORDERED: SYMBICORT 160-4.5 MCG INHALER INHALATION SCH (17:00)
[2020-11-03] MEDS: LORATADINE 10 MG TAB PO SCH (17:35)
[2020-11-03] MEDS: CHOLECALCIFEROL 25 MCG (1000 IU) TABLET PO SCH (17:36)
[2020-11-03] MEDS: ASCORBIC ACID 500 MG TAB PO SCH (17:36)
[2020-11-03] MEDS: methylPREDNISolone SOD SUCCI 125 MG/2 ML VIAL IV SCH (17:40)
[2020-11-03] MEDS: ALPRAZolam 0.25 MG TAB PO PRN (20:40)
[2020-11-03 20:41] LABS: Glucose,Whole Blood 140 mg/dL (75-99)
[2020-11-03] MEDS: levETIRAcetam ORAL SOLN 500 MG/5 ML CUP PO SCH (20:41)
[2020-11-03] MEDS: INSULIN ASPART (NovoLOG) 100 UNIT/ML VIAL SQ SCH (20:50)
[2020-11-03] MEDS: ACETAMINOPHEN TAB 500 MG TAB PO PRN (21:22)
[2020-11-03] MEDS: RIVAROXABAN 15 MG TAB PO SCH (21:23)
[2020-11-03] MEDS ORDERED: ALBUTEROL HFA INHALER INHALATION PRN (21:37)
[2020-11-03] MEDS: ALBUTEROL HFA INHALER INHALATION SCH (22:04)
[2020-11-03] MEDS: SYMBICORT 160-4.5 MCG INHALER INHALATION SCH (22:05)
[2020-11-04] MEDS: methylPREDNISolone SOD SUCCI 125 MG/2 ML VIAL IV SCH ×5 (00:32→22:16)
[2020-11-04] MEDS: PIPERACILLIN-TAZOBACTAM 3.375 GM in SODIUM CHLORIDE 0.9% 100 ML IVPB SCH ×3 (05:12→20:41)
[2020-11-04] MEDS: SODIUM CHLORIDE 0.9% 1,000 ML IV SCH ×2 (05:17→18:36)
--- NOTE | 2020-11-04 07:36 | XR ---
EXAMINATION TYPE: XR chest 1V portable DATE OF EXAM: 11/04/2020 HISTORY: Shortness of breath. COMPARISON: 11/03/2020 TECHNIQUE: Single view of the chest is submitted. FINDINGS: Demonstrated are scattered senescent parenchymal change. Right upper lobe infiltrate persists although may be slightly improved. Continued follow-up is advise d. The heart is stable. Hilar and mediastinal structures are within normal limits. Degenerative changes are seen of the dorsal spine. IMPRESSION: 1. Right upper lobe infiltrate persists although may be slightly improved. Continued follow-up is ad vised.
[2020-11-04] MEDS ORDERED: predniSONE 10 MG TAB PO SCH (08:00)
[2020-11-04] MEDS: PANTOPRAZOLE 40 MG TABLET PO SCH (09:37)
[2020-11-04] MEDS: levETIRAcetam ORAL SOLN 500 MG/5 ML CUP PO SCH ×2 (09:37→22:16)
[2020-11-04] MEDS: LOSARTAN 25 MG TAB PO SCH (09:37)
[2020-11-04] MEDS: LORATADINE 10 MG TAB PO SCH ×2 (09:38→18:30)
[2020-11-04] MEDS: AZITHROMYCIN 500 MG in SODIUM CHLORIDE 0.9% 250 ML IVPB SCH (09:42)
[2020-11-04] MEDS: TIOTROPIUM 2.5 MCG INHALER INHALATION SCH (09:53)
[2020-11-04] MEDS: SYMBICORT 160-4.5 MCG INHALER INHALATION SCH ×2 (09:54→19:45)
[2020-11-04] MEDS: ALBUTEROL HFA INHALER INHALATION SCH ×4 (09:54→19:45)
--- NOTE | 2020-11-04 10:31 | P.PN ---
Subjective Progress Note Date: 11/04/20 This is a 80-year-old here patient is coming in for shortness of breath. The patient was in the hospital and she was seen in consultation back in 10/19/2020 and she was diagnosed having bilateral COVID-19 related pneumonia and acute pulmonary embolism and hypoxic respiratory failure. She is also known to have advanced COPD and she has moderate protein calorie malnutrition. Other medical problems of hypertension and acid reflux and she has chronic medical debility. The patient was treated on an inpatient basis with steroids, she was given multivitamin and Remdesivir and she was discharged on prednisone burst taper and Xarelto. She was also having oxygen saturation she was given O2 at a time of discharge. She was discharged to [facility]. Her CODE STATUS is full. The patient came back to the emergency department yesterday because of worsening shortness of breath. The white cell count was at 17.6 with a hemoglobin of 11.7. The chest x-ray showed emphysema and chronic fibrotic changes especially in the right upper lobe. There are also some tiny bilateral pleural effusions. Comparing to the earlier chest x-ray from 10/21/2020, the film is underpenetrated. No significant abnormalities seen in comparison. There is also thoracic kyphoscoliosis to the left. The current electrodes are normal. BUN is 23 and a creatinine of 0.3. The proBNP level is at 141. CRP is at 16.7. Troponin was less than 0.01. LDH level was 691. UA was consistent with an infection as the patient had bacteria and increased white cell counts. Coagulation profile was within normal limits. Reviewed the CAT scan of the chest from June 2020. The patient has extensive incidences emphysematous martinez e with an upper lobe predominance. There is a large bolus also occupying the right upper lobe and adjacent scarring and fibrosis. Not appreciate any groundglass changes that could typically accompany COVID-19 related pneumonia. Nevertheless, there was extensive emphysematous changes bilaterally with centrilobular changes. There was also evidence of pulmonary artery hypertension and small effusions. As for the irregular opacity in the posterior margin of the right upper lobe, this was felt to be probably a scar although malignancy could not be excluded. Measuring 1.5 x 0.9 cm in size. This was at the posterior margin of the pneumatocele/bolus. In addition there was a chronic T12 compression fracture deformity of the thoracic spine. At this point in time the patient off IV tigecycline by nasal cannula. The patient is also on IV Zosyn, Zithromax, IV fluids with normal sed rate of 136 an hour and albuterol nebulized treatments every 4 hours only on a when necessary basis. Noted the patient was taking 10 mg of prednisone as maintenance. She was also using Symbicort at home 2 puffs twice a day and DuoNeb nebulized treatments around the clock 4 times a day. On today's evaluation on 11/04/2020 patient seen in follow-up on medical surgical floor, she is awake and alert, oriented 3, she states she is feeling breathing better today, does have a congested cough, not able to bring up much phlegm. No complaints of chest discomfort, no fever or chills, she remains on 3 L of oxygen pulse ox is 95%, this is usually what the patient wears at home on a regular basis 3 L of oxygen around the clock. Vital signs have been stable, she remains on a combination of azithromycin and Zosyn for antibiotic coverage, urinalysis showed infected urine, urine culture is pending, overnight she has had no acute events, she remains on IV steroids, antibiotics and breathing treatments. Objective - Vital Signs Vital signs: Vital Signs Temp 97.6 F 11/04/20 06:55 Pulse 51 L 11/04/20 06:55 Resp 18 11/04/20 06:55 BP 144/57 11/04/20 06:55 Pulse Ox 95 11/04/20 06:55 Intake & Output 11/03/20 11/04/20 11/04/20 18:59 06:59 18:59 Weight 38.555 kg Other: Voiding Method Bedpan # Voids 1 # Bowel Movements 2 - Exam GENERAL EXAM: Alert, very pleasant, frail-looking 80-year-old white female, 3 L with a pulse ox of 97-98% comfortable in no apparent distress. HEAD: Normocephalic/atraumatic. EYES: Normal reaction of pupils, equal size. Conjunctiva pink, sclera white. NOSE: Clear with pink turbinates. THROAT: No erythema or exudates. NECK: No masses, no JVD, no thyroid enlargement, no adenopathy. CHEST: No chest wall deformity. Symmetrical expansion. LUNGS: Equal air entry with diminished breath sounds bilaterally, and scattered rhonchi patient does have congested loose nonproductive cough CVS: Regular rate and rhythm, normal S1 and S2, no gallops, no murmurs, no rubs ABDOMEN: Soft, nontender. No hepatosplenomegaly, normal bowel sounds, no guarding or rigidity. EXTREMITIES: No clubbing, no edema, no cyanosis, 2+ pulses and upper and lower extremities. MUSCULOSKELETAL: Muscle strength and tone normal. SPINE: No scoliosis or deformity SKIN: No rashes CENTRAL NERVOUS SYSTEM: Alert and oriented -3. No focal deficits, tone is normal in all 4 extremities. PSYCHIATRIC: Alert and oriented -3. Appropriate affect. Intact judgment and insight. - Labs CBC & Chem 7: 11/03/20 04:30 11/03/20 04:30 Labs: Abnormal Lab Results - Last 24 Hours (Table) 11/03/20 Range/Units 20:40 POC Glucose (mg/dL) 140 H (75-99) mg/dL Microbiology - Last 24 Hours (Table) 11/03/20 04:30 Blood Culture - Preliminary Blood No Growth after 24 hours 11/03/20 04:30 Urine Culture - Preliminary Urine,Voided Assessment and Plan Plan: Assessment: 1 acute COPD exacerbation. Patient has had multiple hospital admissions for the same. The patient had a recent hospitalization for COVID-19 infection. Although, the review of the CAT scan did not show typical pneumonitis related to cope with. She has been infected with MRSA based on his sputum analysis from July 2019. Her current chest x-ray showing a hematocele in the right upper lobe/bolus in addition to some chronic scarring in the right upper lobe. There is diffuse emphysematous change bilaterally. 2 COPD with chronic hypoxic respiratory failure a she has been on oxygen for many years. Based on our previous evaluation, she had an FEV1 of less than 50% of predicted and she carries more than [id number] smoking history. 3 bilateral pulmonary embolism currently on anticoagulation with Xarelto. 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 7 Poor overall functional performance based on the above-mentioned multiple comorbidities 8 history of seizure disorder 9 history of MRSA in the sputum 10 chronic anxiety 11 pulmonary hypertension probably related to chronic advanced lung disease 12 acute urinary tract infection urine culture is pending Plan: Continue current antibiotic coverage Will try to collect and send the sputum for culture Add Mucinex, add a flutter valve Patient is feeling better on today's exam, Still has a congested nonproductive cough, But no fever or chills, vital signs have been stable Remains on IV steroids and nebulized bronchodilators I performed a history & physical examination of the patient and discussed their management with my nurse practitioner, Leni Zarco. I reviewed the nurse practitioner's note and agree with the documented findings and plan of care. Lung sounds are positive for diffuse rhonchi throughout the lung atkins. The findings and the impression was discussed with the patient. I attest to the documentation by the nurse practitioner. Time with Patient: Less than 30
[2020-11-04] MEDS: INSULIN ASPART (NovoLOG) 100 UNIT/ML VIAL SQ SCH ×4 (10:42→22:17)
[2020-11-04 11:16] LABS: Basophils # (A) 0.01 X 10*3/uL (0.00-0.10); Basophils % (A) 0.1 %; Eosinophils # (A) 0 X 10*3/uL (0.04-0.35); Eosinophils % (A) 0 %; HCT 29.5 % (37.2-46.3); HGB 9.3 g/dL (12.0-15.0); Lymphocytes # (A) 0.81 X 10*3/uL (0.90-5.00); Lymphocytes % (A) 5.3 %; MCH 28.6 pg (27.0-32.0); MCHC 31.5 g/dL (32.0-37.0); MCV 90.8 fL (80.0-97.0); Mean Platelet Volume 10.5 fL (9.5-12.2); Monocytes # (A) 0.28 X 10*3/uL (0.20-1.00); Monocytes % (A) 1.8 %; Neutrophils # (A) 14.11 X 10*3/uL (1.80-7.70); Neutrophils % (A) 91.6 %; Platelet Count 318 X 10*3/uL (140-440); RBC 3.25 X 10*6/uL (4.10-5.20); RDW 15.1 % (11.5-14.5)
[2020-11-04] MEDS ORDERED: ALBUTEROL NEB (CONC) 2.5 MG/0.5 ML INHALATION SCH (12:00)
[2020-11-04] MEDS: LIDOCAINE 5% PATCH TOPICAL SCH (12:19)
[2020-11-04] MEDS: RIVAROXABAN 15 MG TAB PO SCH ×2 (12:19→20:39)
[2020-11-04 13:50] LABS: African American GFR (CKD) 114.8 (60.0-200.0); Anion Gap 7.8 mmol/L (4.00-12.00); Calcium 9.2 mg/dL (8.7-10.3); Carbon Dioxide 27.2 mmol/L (21.6-31.8); Non-African American GFR(CKD) 99.1 (60.0-200.0); Potassium 4.9 mmol/L (3.5-5.5)
--- NOTE | 2020-11-04 14:21 | P.PN ---
Subjective This is a pleasant 80 years old female with past medical history of severe COPD, bilateral pulmonary emboli related to recent infection of coronavirus, chronic anxiety, pulmonary hypertension history of seizure, GERD, hypertension. Patient is poor historian. She was sent from [facility] for dyspnea and hypoxia. Also with increased confusion. She was recently discharged from this hospital on 10/22 for Covid infection and pneumonia in both lungs and pulmonary emboli related to Covid infection, she was discharged on Xarelto Patient denies any abdominal complaints, she is cachectic, she was mildly hypotensive on admission 94/63 on admission, tachycardic with heart rate 102, afebrile. Labs reviewed. Patient has chronic leukocytosis, on discharge last time it was 19.8, today her WBC is 17.6 K. INR is 1.2. BMP is unremarkable with creatinine 0.3 and sodium 134. Lactate dehydrogenase is elevated today at 691, increased C-reactive protein at 16.7 chest x-ray: Bilateral pneumonia with slightly worse than old exam, emphysema EKG: Sinus tachycardia at [address]-T changes. In the emergency room patient was started on Solu-Medrol 1 and Zithromax. Continue with prednisone 10 mg 11/04/2020 Patient is more awake today but still wheezing and still with expiratory phase prolongation and she still have some dyspnea on talking. She has weak congested cough. Hemodynamically stable. Obesity trending down to 15 K. Her oxygen saturation actually improved down to 3 L/m which is her baseline at [place] she uses 3-4 L/m This x-ray showing persistent right upper lobe infiltrate which is a slightly better Distal on Zithromax, Zosyn, salmeterol and normal saline at 75 mL/h Objective - Vital Signs Vital signs: Vital Signs Temp 97.7 F 11/04/20 13:05 Pulse 96 11/04/20 13:05 Resp 17 11/04/20 13:05 BP 144/57 11/04/20 06:55 Pulse Ox 93 L 11/04/20 13:05 Intake & Output 11/03/20 11/04/20 11/04/20 18:59 06:59 18:59 Weight 38.555 kg Other: Voiding Method Bedpan Bedpan # Voids 1 # Bowel Movements 2 - Exam GENERAL: The patient is alert and oriented x3, not in any acute distress. Well developed, well nourished. HEENT: Pupils are round and equally reacting to light. EOMI. No scleral icterus. No conjunctival pallor. Normocephalic, atraumatic. No pharyngeal erythema. No thyromegaly. CARDIOVASCULAR: S1 and S2 present. No murmurs, rubs, or gallops. -PULMONARY: Chest is clear to auscultation, bilateral crackles. Acute kidney ABDOMEN: Soft, nontender, nondistended, normoactive bowel sounds. No palpable organomegaly. MUSCULOSKELETAL: No joint swelling or deformity. EXTREMITIES: No cyanosis, clubbing, or pedal edema. NEUROLOGICAL: Gross neurological examination did not reveal any focal deficits. SKIN: No rashes. No petechiae - Labs CBC & Chem 7: 11/04/20 07:39 11/04/20 07:39 Labs: Abnormal Lab Results - Last 24 Hours (Table) 11/03/20 11/04/20 11/04/20 Range/Units 20:40 07:39 07:39 WBC 15.40 H (4.50-10.00) X 10*3/uL RBC 3.25 L (4.10-5.20) X 10*6/uL Hgb 9.3 L (12.0-15.0) g/dL Hct 29.5 L (37.2-46.3) % MCHC 31.5 L (32.0-37.0) g/dL RDW 15.1 H (11.5-14.5) % Immature Gran # 0.19 H (0.00-0.04) X 10*3/uL Neutrophils # 14.11 H (1.80-7.70) X 10*3/uL Lymphocytes # 0.81 L (0.90-5.00) X 10*3/uL Eosinophils # 0 L (0.04-0.35) X 10*3/uL Chloride 110 H (96-109) mmol/L Creatinine 0.4 L (0.6-1.5) mg/dL BUN/Creatinine Ratio 55.00 H (12.00-20.00) Ratio Glucose 134 H (70-110) mg/dL POC Glucose (mg/dL) 140 H (75-99) mg/dL Microbiology - Last 24 Hours (Table) 11/03/20 04:30 Blood Culture - Preliminary Blood No Growth after 24 hours Assessment and Plan Assessment: Bilateral pneumonia, related to Covid infection and possible bacterial superinfection Possible sepsis secondary to above Recent history of bilateral Covid pneumonia Chronic respiratory failure Acute COPD exacerbation Metabolic encephalopathy on the top of dementia Chronic anxiety History of pulmonary hypertension History of seizure History of GERD Hypertension Possible senile dementia Plan: This is a pleasant 80 years old female who presents with COPD, recurrent pneumonia. Zosyn Continue with Solu-Medrol Continue with Xarelto Labs and medication were reviewed.. Continue same treatment. Continue with symptomatic treatment. Resume home medication. Monitor lytes and vitals. DVT and GI prophylaxis. Further recommendations depends on the clinical course of the patient DVT prophylaxis: Xarelto GI Prophylaxis: Ppi Prognosis is guarded
[2020-11-04 14:39] VITALS: BMI 13.7
[2020-11-04] MEDS: CHOLECALCIFEROL 25 MCG (1000 IU) TABLET PO SCH (18:30)
[2020-11-04] MEDS: ASCORBIC ACID 500 MG TAB PO SCH (18:31)
[2020-11-04] MEDS: ACETAMINOPHEN TAB 500 MG TAB PO PRN (20:39)
[2020-11-04] MEDS: ALPRAZolam 0.25 MG TAB PO PRN (20:39)
[2020-11-04 21:18] LABS: Glucose,Whole Blood 204 mg/dL (75-99)
[2020-11-05] MEDS: methylPREDNISolone SOD SUCCI 125 MG/2 ML VIAL IV SCH ×3 (05:29→17:19)
[2020-11-05] MEDS: PIPERACILLIN-TAZOBACTAM 3.375 GM in SODIUM CHLORIDE 0.9% 100 ML IVPB SCH ×3 (05:29→21:08)
[2020-11-05 07:28] LABS: Glucose,Whole Blood 135 mg/dL (75-99)
[2020-11-05] MEDS: INSULIN ASPART (NovoLOG) 100 UNIT/ML VIAL SQ SCH ×4 (08:11→21:07)
[2020-11-05] MEDS: ALBUTEROL HFA INHALER INHALATION SCH ×4 (09:08→20:59)
[2020-11-05] MEDS: SYMBICORT 160-4.5 MCG INHALER INHALATION SCH ×2 (09:08→20:59)
[2020-11-05] MEDS: AZITHROMYCIN 500 MG in SODIUM CHLORIDE 0.9% 250 ML IVPB SCH (09:22)
[2020-11-05] MEDS: LORATADINE 10 MG TAB PO SCH ×2 (09:23→17:18)
[2020-11-05] MEDS: levETIRAcetam ORAL SOLN 500 MG/5 ML CUP PO SCH ×2 (09:24→20:55)
[2020-11-05] MEDS: LOSARTAN 25 MG TAB PO SCH (09:24)
[2020-11-05] MEDS: PANTOPRAZOLE 40 MG TABLET PO SCH (09:24)
[2020-11-05] MEDS: LIDOCAINE 5% PATCH TOPICAL SCH (09:25)
[2020-11-05] MEDS: SODIUM CHLORIDE 0.9% 1,000 ML IV SCH ×2 (09:41→21:09)
[2020-11-05] MEDS: RIVAROXABAN 15 MG TAB PO SCH ×2 (09:41→17:57)
[2020-11-05 11:58] LABS: Glucose,Whole Blood 227 mg/dL (75-99)
[2020-11-05] MEDS: TIOTROPIUM 2.5 MCG INHALER INHALATION SCH (12:14)
[2020-11-05 16:53] LABS: Glucose,Whole Blood 112 mg/dL (75-99)
[2020-11-05] MEDS: CHOLECALCIFEROL 25 MCG (1000 IU) TABLET PO SCH (17:18)
--- NOTE | 2020-11-05 17:24 | P.PN ---
Subjective Progress Note Date: 11/05/20 This is a 80-year-old here patient is coming in for shortness of breath. The patient was in the hospital and she was seen in consultation back in 10/19/2020 and she was diagnosed having bilateral COVID-19 related pneumonia and acute pulmonary embolism and hypoxic respiratory failure. She is also known to have advanced COPD and she has moderate protein calorie malnutrition. Other medical problems of hypertension and acid reflux and she has chronic medical debility. The patient was treated on an inpatient basis with steroids, she was given multivitamin and Remdesivir and she was discharged on prednisone burst taper and Xarelto. She was also having oxygen saturation she was given O2 at a time of discharge. She was discharged to [facility]. Her CODE STATUS is full. The patient came back to the emergency department yesterday because of worsening shortness of breath. The white cell count was at 17.6 with a hemoglobin of 11.7. The chest x-ray showed emphysema and chronic fibrotic changes especially in the right upper lobe. There are also some tiny bilateral pleural effusions. Comparing to the earlier chest x-ray from 10/21/2020, the film is underpenetrated. No significant abnormalities seen in comparison. There is also thoracic kyphoscoliosis to the left. The current electrodes are normal. BUN is 23 and a creatinine of 0.3. The proBNP level is at 141. CRP is at 16.7. Troponin was less than 0.01. LDH level was 691. UA was consistent with an infection as the patient had bacteria and increased white cell counts. Coagulation profile was within normal limits. Reviewed the CAT scan of the chest from June 2020. The patient has extensive incidences emphysematous martinez e with an upper lobe predominance. There is a large bolus also occupying the right upper lobe and adjacent scarring and fibrosis. Not appreciate any groundglass changes that could typically accompany COVID-19 related pneumonia. Nevertheless, there was extensive emphysematous changes bilaterally with centrilobular changes. There was also evidence of pulmonary artery hypertension and small effusions. As for the irregular opacity in the posterior margin of the right upper lobe, this was felt to be probably a scar although malignancy could not be excluded. Measuring 1.5 x 0.9 cm in size. This was at the posterior margin of the pneumatocele/bolus. In addition there was a chronic T12 compression fracture deformity of the thoracic spine. At this point in time the patient off IV tigecycline by nasal cannula. The patient is also on IV Zosyn, Zithromax, IV fluids with normal sed rate of 136 an hour and albuterol nebulized treatments every 4 hours only on a when necessary basis. Noted the patient was taking 10 mg of prednisone as maintenance. She was also using Symbicort at home 2 puffs twice a day and DuoNeb nebulized treatments around the clock 4 times a day. On today's evaluation on 11/04/2020 patient seen in follow-up on medical surgical floor, she is awake and alert, oriented 3, she states she is feeling breathing better today, does have a congested cough, not able to bring up much phlegm. No complaints of chest discomfort, no fever or chills, she remains on 3 L of oxygen pulse ox is 95%, this is usually what the patient wears at home on a regular basis 3 L of oxygen around the clock. Vital signs have been stable, she remains on a combination of azithromycin and Zosyn for antibiotic coverage, urinalysis showed infected urine, urine culture is pending, overnight she has had no acute events, she remains on IV steroids, antibiotics and breathing treatments. On today's evaluation on 11/05/2020 patient seen in follow-up on general medical surgical floor. She is sitting up in the recliner, appears to be in no acute distress. Breathing comfortably, she is on 3 L of oxygen pulse ox of 99%, she's had no fever or chills, blood pressure is been stable. Follow-up chest x-ray yesterday showed a right upper lobe infiltrate with some slight improvement. Patient remains on nebulized bronchodilators, azithromycin, Zosyn, she is on oral anticoagulation in the form of Xarelto, she also remains on antibiotics with azithromycin and Zosyn. Her urine culture showed group D enterococcus Objective - Vital Signs Vital signs: Vital Signs Temp 97.6 F 11/05/20 14:00 Pulse 82 11/05/20 14:00 Resp 16 11/05/20 14:00 BP 123/67 11/05/20 14:00 Pulse Ox 99 11/05/20 14:00 Intake & Output 11/04/20 11/05/20 11/05/20 18:59 06:59 18:59 Intake Total 900 532 Balance 900 532 Weight 38.555 kg Intake: Intake, IV Titration 900 Amount Sodium Chloride 0.9% 1, 900 000 ml @ 75 mls/hr IV . [id number] [facility] Rx#:[id number] Oral 532 Other: Voiding Method Bedpan Bedpan Bedpan # Voids 2 - Exam GENERAL EXAM: Alert, very pleasant, frail-looking 80-year-old white female, 3 L with a pulse ox of 97-98% comfortable in no apparent distress. HEAD: Normocephalic/atraumatic. EYES: Normal reaction of pupils, equal size. Conjunctiva pink, sclera white. NOSE: Clear with pink turbinates. THROAT: No erythema or exudates. NECK: No masses, no JVD, no thyroid enlargement, no adenopathy. CHEST: No chest wall deformity. Symmetrical expansion. LUNGS: Equal air entry with diminished breath sounds bilaterally, and scattered rhonchi patient does have congested loose nonproductive cough CVS: Regular rate and rhythm, normal S1 and S2, no gallops, no murmurs, no rubs ABDOMEN: Soft, nontender. No hepatosplenomegaly, normal bowel sounds, no guarding or rigidity. EXTREMITIES: No clubbing, no edema, no cyanosis, 2+ pulses and upper and lower extremities. MUSCULOSKELETAL: Muscle strength and tone normal. SPINE: No scoliosis or deformity SKIN: No rashes CENTRAL NERVOUS SYSTEM: Alert and oriented -3. No focal deficits, tone is normal in all 4 extremities. PSYCHIATRIC: Alert and oriented -3. Appropriate affect. Intact judgment and insight. - Labs CBC & Chem 7: 11/04/20 07:39 11/04/20 07:39 Labs: Abnormal Lab Results - Last 24 Hours (Table) 11/04/20 11/05/20 11/05/20 Range/Units 21:17 07:27 11:57 POC Glucose (mg/dL) 204 H 135 H 227 H (75-99) mg/dL 11/05/20 Range/Units 16:51 POC Glucose (mg/dL) 112 H (75-99) mg/dL Microbiology - Last 24 Hours (Table) 11/03/20 04:30 Blood Culture - Preliminary Blood No Growth after 48 hours 11/03/20 04:30 Urine Culture - Preliminary Urine,Voided Group D Enterococcus Assessment and Plan Plan: Assessment: 1 acute COPD exacerbation. Patient has had multiple hospital admissions for the same. The patient had a recent hospitalization for COVID-19 infection. Although, the review of the CAT scan did not show typical pneumonitis related to cope with. She has been infected with MRSA based on his sputum analysis from July 2019. Her current chest x-ray showing a hematocele in the right upper lobe/bolus in addition to some chronic scarring in the right upper lobe. There is diffuse emphysematous change bilaterally. 2 COPD with chronic hypoxic respiratory failure a she has been on oxygen for many years. Based on our previous evaluation, she had an FEV1 of less than 50% of predicted and she carries more than [id number] smoking history. 3 bilateral pulmonary embolism currently on anticoagulation with Xarelto. 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 7 Poor overall functional performance based on the above-mentioned multiple comorbidities 8 history of seizure disorder 9 history of MRSA in the sputum 10 chronic anxiety 11 pulmonary hypertension probably related to chronic advanced lung disease 12 acute urinary tract infection urine culture positive for group D enterococcus, final culture is pending Plan: Continue current medical treatment Awaiting final urine culture Clinically patient is stable no fever or chills Current antibiotic coverage is with azithromycin and Zosyn Decrease Solu-Medrol to 40 mg every 8 hours I performed a history & physical examination of the patient and discussed their management with my nurse practitioner, Leni Zarco. I reviewed the nurse practitioner's note and agree with the documented findings and plan of care. Lung sounds are positive for diffuse rhonchi throughout the lung atkins. The findings and the impression was discussed with the patient. I attest to the documentation by the nurse practitioner. Time with Patient: Less than 30
[2020-11-05] MEDS: ASCORBIC ACID 500 MG TAB PO SCH (17:57)
[2020-11-05 20:56] LABS: Glucose,Whole Blood 188 mg/dL (75-99)
[2020-11-05] MEDS: ACETAMINOPHEN TAB 500 MG TAB PO PRN (21:07)
--- NOTE | 2020-11-05 22:13 | P.PN ---
Subjective This is a pleasant 80 years old female with past medical history of severe COPD, bilateral pulmonary emboli related to recent infection of coronavirus, chronic anxiety, pulmonary hypertension history of seizure, GERD, hypertension. Patient is poor historian. She was sent from [facility] for dyspnea and hypoxia. Also with increased confusion. She was recently discharged from this hospital on 10/22 for Covid infection and pneumonia in both lungs and pulmonary emboli related to Covid infection, she was discharged on Xarelto Patient denies any abdominal complaints, she is cachectic, she was mildly hypotensive on admission 94/63 on admission, tachycardic with heart rate 102, afebrile. Labs reviewed. Patient has chronic leukocytosis, on discharge last time it was 19.8, today her WBC is 17.6 K. INR is 1.2. BMP is unremarkable with creatinine 0.3 and sodium 134. Lactate dehydrogenase is elevated today at 691, increased C-reactive protein at 16.7 chest x-ray: Bilateral pneumonia with slightly worse than old exam, emphysema EKG: Sinus tachycardia at [address]-T changes. In the emergency room patient was started on Solu-Medrol 1 and Zithromax. Continue with prednisone 10 mg 11/04/2020 Patient is more awake today but still wheezing and still with expiratory phase prolongation and she still have some dyspnea on talking. She has weak congested cough. Hemodynamically stable. Obesity trending down to 15 K. Her oxygen saturation actually improved down to 3 L/m which is her baseline at [facility] she uses 3-4 L/m This x-ray showing persistent right upper lobe infiltrate which is a slightly better Distal on Zithromax, Zosyn, salmeterol and normal saline at 75 mL/h 11/05/2020 Patient pneumonia is improving, she is less dyspneic, her blood pressure is a stable, her oxygen saturation is improved down to 3 L/m which is her baseline of 3-4 L minute at home No labs from today Urine culture is growing enterococcus and final result is pending Procedure well he is improving and she is less wheezing and her sister slower to 40 mg today by pulmonary team We will keep fluid at normal sinus 75 mL per hour because was borderline elevated here this morning. Continue Zithromax and Zosyn Repeat chest x-ray and labs tomorrow Objective - Vital Signs Vital signs: Vital Signs Temp 97.7 F 11/05/20 10:00 Pulse 105 H 11/05/20 10:00 Resp 16 11/05/20 10:00 BP 131/72 11/05/20 10:00 Pulse Ox 98 11/05/20 10:00 Intake & Output 11/04/20 11/05/20 11/05/20 18:59 06:59 18:59 Intake Total 900 236 Balance 900 236 Weight 38.555 kg Intake: Intake, IV Titration 900 Amount Sodium Chloride 0.9% 1, 900 000 ml @ 75 mls/hr IV . [id number] [facility] Rx#:[id number] Oral 236 Other: Voiding Method Bedpan Bedpan Bedpan # Voids 2 - Exam GENERAL: The patient is alert and oriented x3, not in any acute distress. Well developed, well nourished. HEENT: Pupils are round and equally reacting to light. EOMI. No scleral icterus. No conjunctival pallor. Normocephalic, atraumatic. No pharyngeal erythema. No thyromegaly. CARDIOVASCULAR: S1 and S2 present. No murmurs, rubs, or gallops. -PULMONARY: Chest is clear to auscultation, bilateral crackles. Acute kidney ABDOMEN: Soft, nontender, nondistended, normoactive bowel sounds. No palpable organomegaly. MUSCULOSKELETAL: No joint swelling or deformity. EXTREMITIES: No cyanosis, clubbing, or pedal edema. NEUROLOGICAL: Gross neurological examination did not reveal any focal deficits. SKIN: No rashes. No petechiae - Labs CBC & Chem 7: 11/04/20 07:39 11/04/20 07:39 Labs: Abnormal Lab Results - Last 24 Hours (Table) 11/04/20 11/04/20 11/05/20 Range/Units 07:39 21:17 07:27 Chloride 110 H (96-109) mmol/L Creatinine 0.4 L (0.6-1.5) mg/dL BUN/Creatinine Ratio 55.00 H (12.00-20.00) Ratio Glucose 134 H (70-110) mg/dL POC Glucose (mg/dL) 204 H 135 H (75-99) mg/dL 11/05/20 Range/Units 11:57 Chloride (96-109) mmol/L Creatinine (0.6-1.5) mg/dL BUN/Creatinine Ratio (12.00-20.00) Ratio Glucose (70-110) mg/dL POC Glucose (mg/dL) 227 H (75-99) mg/dL Microbiology - Last 24 Hours (Table) 11/03/20 04:30 Blood Culture - Preliminary Blood No Growth after 48 hours 11/03/20 04:30 Urine Culture - Preliminary Urine,Voided Group D Enterococcus Assessment and Plan Assessment: Bilateral pneumonia, related to Covid infection and possible bacterial superinfection Possible sepsis secondary to above Recent history of bilateral Covid pneumonia Chronic respiratory failure Acute COPD exacerbation Metabolic encephalopathy on the top of dementia Chronic anxiety History of pulmonary hypertension History of seizure History of GERD Hypertension Possible senile dementia Plan: This is a pleasant 80 years old female who presents with COPD, recurrent pneumonia. Zosyn Continue with Solu-Medrol Continue with Xarelto Labs and medication were reviewed.. Continue same treatment. Continue with symptomatic treatment. Resume home medication. Monitor lytes and vitals. DVT and GI prophylaxis. Further recommendations depends on the clinical course of the patient DVT prophylaxis: Xarelto GI Prophylaxis: Ppi Prognosis is guarded
[2020-11-05] MEDS: methylPREDNISolone SOD SUCCI 40 MG/ML 1 ML VIAL IV SCH (23:47)
[2020-11-06] MEDS: ACETAMINOPHEN TAB 500 MG TAB PO PRN (03:50)
[2020-11-06] MEDS: PIPERACILLIN-TAZOBACTAM 3.375 GM in SODIUM CHLORIDE 0.9% 100 ML IVPB SCH ×3 (05:00→21:10)
[2020-11-06 07:08] LABS: Glucose,Whole Blood 131 mg/dL (75-99)
--- NOTE | 2020-11-06 07:44 | XR ---
EXAMINATION TYPE: XR chest 1V DATE OF EXAM: 11/06/2020 COMPARISON: Chest x-ray 11/04/2020, CT 10/18/2020 HISTORY: Shortness of breath TECHNIQUE: Single frontal view of the chest is obtained. FINDINGS: Patient is rotated. There is likely underlying interstitial lung disease, emphysema, scarr ing. Patchy basilar density persists greater on the left. Cardiac mediastinal silhouette is stable. A carlitos is dense. No evident pneumothorax. IMPRESSION: Rotated exam. Emphysema, left lower lobe atelectasis and associated effusion versus pneu monia
[2020-11-06] MEDS: LOSARTAN 25 MG TAB PO SCH ×2 (07:55→10:38)
[2020-11-06] MEDS: AZITHROMYCIN 500 MG in SODIUM CHLORIDE 0.9% 250 ML IVPB SCH (07:55)
[2020-11-06] MEDS: LIDOCAINE 5% PATCH TOPICAL SCH (07:55)
[2020-11-06] MEDS: PANTOPRAZOLE 40 MG TABLET PO SCH (07:55)
[2020-11-06] MEDS: methylPREDNISolone SOD SUCCI 40 MG/ML 1 ML VIAL IV SCH (07:55)
[2020-11-06] MEDS: INSULIN ASPART (NovoLOG) 100 UNIT/ML VIAL SQ SCH ×4 (07:56→22:02)
[2020-11-06] MEDS: levETIRAcetam ORAL SOLN 500 MG/5 ML CUP PO SCH ×2 (07:56→21:10)
[2020-11-06] MEDS: RIVAROXABAN 15 MG TAB PO SCH ×2 (07:57→17:11)
[2020-11-06] MEDS: LORATADINE 10 MG TAB PO SCH ×2 (07:57→17:11)
[2020-11-06] MEDS: TIOTROPIUM 2.5 MCG INHALER INHALATION SCH (08:01)
[2020-11-06] MEDS: ALBUTEROL HFA INHALER INHALATION SCH ×4 (08:01→19:23)
[2020-11-06] MEDS: SYMBICORT 160-4.5 MCG INHALER INHALATION SCH ×2 (08:01→19:23)
[2020-11-06 08:25] LABS: African American GFR (CKD) >90 (>60 ml/min/1.73 sqM); Anion Gap 7 mmol/L; Blood Urea Nitrogen 25 mg/dL (7-17); C Reactive Protein 3.4 mg/dL (<1.0); Calcium 9.5 mg/dL (8.4-10.2); Carbon Dioxide 25 mmol/L (22-30); Chloride 107 mmol/L (98-107); Glucose 107 mg/dL (74-99); LDH 430 U/L (313-618); Non-African American GFR(CKD) >90 (>60 ml/min/1.73 sqM); Potassium 3.7 mmol/L (3.5-5.1); Sodium 139 mmol/L (137-145)
[2020-11-06 08:45] LABS: Basophils % (A) 0 %; Eosinophils % (A) 0 %; HCT 32.8 % (34.0-46.0); HGB 10.5 gm/dL (11.4-16.0); Hypochromasia Slight; Lymphocytes # (A) 0.7 k/uL (1.0-4.8); Lymphocytes % (A) 5 %; MCH 29.4 pg (25.0-35.0); MCV 91.9 fL (80.0-100.0); Mean Platelet Volume 8.5; Monocytes # (A) 0.4 k/uL (0-1.0); Monocytes % (A) 3 %; Neutrophils # (A) 12.7 k/uL (1.3-7.7); Neutrophils % (A) 91 %; Platelet Count 379 k/uL (150-450); RBC 3.57 m/uL (3.80-5.40); RDW 14.4 % (11.5-15.5); WBC 13.9 k/uL (3.8-10.6)
[2020-11-06 11:27] LABS: Glucose,Whole Blood 135 mg/dL (75-99)
--- NOTE | 2020-11-06 13:29 | P.PN ---
Subjective Progress Note Date: 11/06/20 This is a 80-year-old here patient is coming in for shortness of breath. The patient was in the hospital and she was seen in consultation back in 10/19/2020 and she was diagnosed having bilateral COVID-19 related pneumonia and acute pulmonary embolism and hypoxic respiratory failure. She is also known to have advanced COPD and she has moderate protein calorie malnutrition. Other medical problems of hypertension and acid reflux and she has chronic medical debility. The patient was treated on an inpatient basis with steroids, she was given multivitamin and Remdesivir and she was discharged on prednisone burst taper and Xarelto. She was also having oxygen saturation she was given O2 at a time of discharge. She was discharged to [facility]. Her CODE STATUS is full. The patient came back to the emergency department yesterday because of worsening shortness of breath. The white cell count was at 17.6 with a hemoglobin of 11.7. The chest x-ray showed emphysema and chronic fibrotic changes especially in the right upper lobe. There are also some tiny bilateral pleural effusions. Comparing to the earlier chest x-ray from 10/21/2020, the film is underpenetrated. No significant abnormalities seen in comparison. There is also thoracic kyphoscoliosis to the left. The current electrodes are normal. BUN is 23 and a creatinine of 0.3. The proBNP level is at 141. CRP is at 16.7. Troponin was less than 0.01. LDH level was 691. UA was consistent with an infection as the patient had bacteria and increased white cell counts. Coagulation profile was within normal limits. Reviewed the CAT scan of the chest from June 2020. The patient has extensive incidences emphysematous balwinder nge with an upper lobe predominance. There is a large bolus also occupying the right upper lobe and adjacent scarring and fibrosis. Not appreciate any groundglass changes that could typically accompany COVID-19 related pneumonia. Nevertheless, there was extensive emphysematous changes bilaterally with centrilobular changes. There was also evidence of pulmonary artery hypertension and small effusions. As for the irregular opacity in the posterior margin of the right upper lobe, this was felt to be probably a scar although malignancy could not be excluded. Measuring 1.5 x 0.9 cm in size. This was at the posterior margin of the pneumatocele/bolus. In addition there was a chronic T12 compression fracture deformity of the thoracic spine. At this point in time the patient off IV tigecycline by nasal cannula. The patient is also on IV Zosyn, Zithromax, IV fluids with normal sed rate of 136 an hour and albuterol nebulized treatments every 4 hours only on a when necessary basis. Noted the patient was taking 10 mg of prednisone as maintenance. She was also using Symbicort at home 2 puffs twice a day and DuoNeb nebulized treatments around the clock 4 times a day. On today's evaluation on 11/04/2020 patient seen in follow-up on medical surgical floor, she is awake and alert, oriented 3, she states she is feeling breathing better today, does have a congested cough, not able to bring up much phlegm. No complaints of chest discomfort, no fever or chills, she remains on 3 L of oxygen pulse ox is 95%, this is usually what the patient wears at home on a regular basis 3 L of oxygen around the clock. Vital signs have been stable, she remains on a combination of azithromycin and Zosyn for antibiotic coverage, urinalysis showed infected urine, urine culture is pending, overnight she has had no acute events, she remains on IV steroids, antibiotics and breathing treatments. On today's evaluation on 11/05/2020 patient seen in follow-up on general medical surgical floor. She is sitting up in the recliner, appears to be in no acute distress. Breathing comfortably, she is on 3 L of oxygen pulse ox of 99%, she's had no fever or chills, blood pressure is been stable. Follow-up chest x-ray yesterday showed a right upper lobe infiltrate with some slight improvement. Patient remains on nebulized bronchodilators, azithromycin, Zosyn, she is on oral anticoagulation in the form of Xarelto, she also remains on antibiotics with azithromycin and Zosyn. Her urine culture showed group D enterococcus 11/06/2020, this debilitated patient is being seen for a follow-up. No new complaints. She has enterococcus group D in her urine and the patient is currently on IV Zosyn. She is also on Zithromax. Extremely poor performance and functional status. Extremities cachectic. Recent COVID-19 related pneumonia/infection from which the patient has recovered. She is still on bronchodilators. She is afebrile. Oral intake remains quite low and the patient is not meeting her nutritional requirements. No dyspnea at rest. No mental status change. Blood work was noted. White cell count of 13.9. Normal renal function. Normal electrolytes. LDH level is down to 4:30. Creatinine is at 0.4. Objective - Vital Signs Vital signs: Vital Signs Temp 97.7 F 11/06/20 10:00 Pulse 73 11/06/20 10:00 Resp 16 11/06/20 10:00 BP 158/72 11/06/20 10:00 Pulse Ox 97 11/06/20 10:00 Intake & Output 11/05/20 11/06/20 11/06/20 18:59 06:59 18:59 Intake Total 768 118 Balance 768 118 Intake: Oral 768 118 Other: Voiding Method Bedpan Bedpan Bedpan # Voids 2 1 1 # Bowel Movements 0 1 - Exam GENERAL EXAM: Alert, very pleasant, frail-looking 80-year-old white female, 3 L with a pulse ox of 97-98% comfortable in no apparent distress. HEAD: Normocephalic/atraumatic. EYES: Normal reaction of pupils, equal size. Conjunctiva pink, sclera white. NOSE: Clear with pink turbinates. THROAT: No erythema or exudates. NECK: No masses, no JVD, no thyroid enlargement, no adenopathy. CHEST: No chest wall deformity. Symmetrical expansion. LUNGS: Equal air entry with diminished breath sounds bilaterally, and scattered rhonchi patient does have congested loose nonproductive cough CVS: Regular rate and rhythm, normal S1 and S2, no gallops, no murmurs, no rubs ABDOMEN: Soft, nontender. No hepatosplenomegaly, normal bowel sounds, no guarding or rigidity. EXTREMITIES: No clubbing, no edema, no cyanosis, 2+ pulses and upper and lower extremities. MUSCULOSKELETAL: Muscle strength and tone normal. SPINE: No scoliosis or deformity SKIN: No rashes CENTRAL NERVOUS SYSTEM: Alert and oriented -3. No focal deficits, tone is normal in all 4 extremities. PSYCHIATRIC: Alert and oriented -3. Appropriate affect. Intact judgment and insight. - Labs CBC & Chem 7: 11/06/20 07:46 11/06/20 07:46 Labs: Abnormal Lab Results - Last 24 Hours (Table) 11/05/20 11/05/20 11/06/20 Range/Units 16:51 20:55 07:06 WBC (3.8-10.6) k/uL RBC (3.80-5.40) m/uL Hgb (11.4-16.0) gm/dL Hct (34.0-46.0) % Neutrophils # (1.3-7.7) k/uL Lymphocytes # (1.0-4.8) k/uL BUN (7-17) mg/dL Creatinine (0.52-1.04) mg/dL Glucose (74-99) mg/dL POC Glucose (mg/dL) 112 H 188 H 131 H (75-99) mg/dL C-Reactive Protein (<1.0) mg/dL 11/06/20 11/06/20 11/06/20 Range/Units 07:46 07:46 11:26 WBC 13.9 H (3.8-10.6) k/uL RBC 3.57 L (3.80-5.40) m/uL Hgb 10.5 L (11.4-16.0) gm/dL Hct 32.8 L (34.0-46.0) % Neutrophils # 12.7 H (1.3-7.7) k/uL Lymphocytes # 0.7 L (1.0-4.8) k/uL BUN 25 H (7-17) mg/dL Creatinine 0.40 L (0.52-1.04) mg/dL Glucose 107 H (74-99) mg/dL POC Glucose (mg/dL) 135 H (75-99) mg/dL C-Reactive Protein 3.4 H (<1.0) mg/dL Microbiology - Last 24 Hours (Table) 11/03/20 04:30 Blood Culture - Preliminary Blood No Growth after 72 hours Assessment and Plan Plan: 1 acute COPD exacerbation. Patient has had multiple hospital admissions for the same. The patient had a recent hospitalization for COVID-19 infection. Although, the review of the CAT scan did not show typical pneumonitis related to cope with. She has been infected with MRSA based on his sputum analysis from July 2019. Her current chest x-ray showing a hematocele in the right upper lobe/bolus in addition to some chronic scarring in the right upper lobe. There is diffuse emphysematous change bilaterally. No clear indication of any supe rinfection at this point in time. 2 COPD with chronic hypoxic respiratory failure a she has been on oxygen for many years. Based on our previous evaluation, she had an FEV1 of less than 50% of predicted and she carries more than [id number] smoking history. 3 bilateral pulmonary embolism currently on anticoagulation with Xarelto. 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 7 Poor overall functional performance based on the above-mentioned multiple comorbidities 8 history of seizure disorder 9 history of MRSA in the sputum 10 chronic anxiety 11 pulmonary hypertension probably related to chronic advanced lung disease 12 enterococcal UTI Plan With the patient on DuoNeb nebulized treatment [id number] Continue Zithromax Continue IV Zosyn Continue Xarelto for anticoagulants regarding her recent pulmonary embolism Resume all medications Extremely debilitated, cachectic and malnourished. Carries a very poor prognosis. She had a senior living resident. The patient will be offered oxygen and the fluid be titrated to maintain a saturation above 90%. Her COPD is end- stage. She has senile debility along with debility due to a advanced and end- stage COPD. Prognosis extremely poor as mentioned.
--- NOTE | 2020-11-06 16:32 | P.PN ---
Subjective This is a pleasant 80 years old female with past medical history of severe COPD, bilateral pulmonary emboli related to recent infection of coronavirus, chronic anxiety, pulmonary hypertension history of seizure, GERD, hypertension. Patient is poor historian. She was sent from [facility] for dyspnea and hypoxia. Also with increased confusion. She was recently discharged from this hospital on 10/22 for Covid infection and pneumonia in both lungs and pulmonary emboli related to Covid infection, she was discharged on Xarelto Patient denies any abdominal complaints, she is cachectic, she was mildly hypotensive on admission 94/63 on admission, tachycardic with heart rate 102, afebrile. Labs reviewed. Patient has chronic leukocytosis, on discharge last time it was 19.8, today her WBC is 17.6 K. INR is 1.2. BMP is unremarkable with creatinine 0.3 and sodium 134. Lactate dehydrogenase is elevated today at 691, increased C-reactive protein at 16.7 chest x-ray: Bilateral pneumonia with slightly worse than old exam, emphysema EKG: Sinus tachycardia at [address]-T changes. In the emergency room patient was started on Solu-Medrol 1 and Zithromax. Continue with prednisone 10 mg 11/04/2020 Patient is more awake today but still wheezing and still with expiratory phase prolongation and she still have some dyspnea on talking. She has weak congested cough. Hemodynamically stable. Obesity trending down to 15 K. Her oxygen saturation actually improved down to 3 L/m which is her baseline at [facility] she uses 3-4 L/m This x-ray showing persistent right upper lobe infiltrate which is a slightly better Distal on Zithromax, Zosyn, salmeterol and normal saline at 75 mL/h 11/05/2020 Patient pneumonia is improving, she is less dyspneic, her blood pressure is a stable, her oxygen saturation is improved down to 3 L/m which is her baseline of 3-4 L minute at home No labs from today Urine culture is growing enterococcus and final result is pending Procedure well he is improving and she is less wheezing and her sister slower to 40 mg today by pulmonary team We will keep fluid at normal sinus 75 mL per hour because was borderline elevated here this morning. Continue Zithromax and Zosyn Repeat chest x-ray and labs tomorrow 11/06/2020 Although patient breathing improving every day however she still dyspneic especially when talking, very debilitated and it looks like baseline is dyspnea. She has advanced/end-stage COPD as per pulmonary evaluation Although her saturation is improving and she is currently on 3 L oxygen via nasal cannula saturating 99%, she is breathing quite Liatris but once she started talking she got really dyspneic. LDH is normal today and C-reactive protein significantly improved down to 3.4. She is kept on normal saline 75 mL/h, Solu-Medrol 40 mg and Zithromax and Zosyn But her prognosis is really poor on both on the short and long-term Objective - Vital Signs Vital signs: Vital Signs Temp 97.7 F 11/06/20 14:00 Pulse 63 11/06/20 14:00 Resp 16 11/06/20 14:00 BP 145/67 11/06/20 14:00 Pulse Ox 99 11/06/20 14:00 Intake & Output 11/05/20 11/06/20 11/06/20 18:59 06:59 18:59 Intake Total 768 236 Balance 768 236 Intake: Oral 768 236 Other: Voiding Method Bedpan Bedpan Bedpan # Voids 2 1 1 # Bowel Movements 0 1 - Exam GENERAL: The patient is alert and oriented x3, not in any acute distress. Well developed, well nourished. HEENT: Pupils are round and equally reacting to light. EOMI. No scleral icterus. No conjunctival pallor. Normocephalic, atraumatic. No pharyngeal erythema. No thyromegaly. CARDIOVASCULAR: S1 and S2 present. No murmurs, rubs, or gallops. -PULMONARY: Chest is clear to auscultation, bilateral crackles. Acute kidney ABDOMEN: Soft, nontender, nondistended, normoactive bowel sounds. No palpable organomegaly. MUSCULOSKELETAL: No joint swelling or deformity. EXTREMITIES: No cyanosis, clubbing, or pedal edema. NEUROLOGICAL: Gross neurological examination did not reveal any focal deficits. SKIN: No rashes. No petechiae - Labs CBC & Chem 7: 11/06/20 07:46 11/06/20 07:46 Labs: Abnormal Lab Results - Last 24 Hours (Table) 11/05/20 11/05/20 11/06/20 Range/Units 16:51 20:55 07:06 WBC (3.8-10.6) k/uL RBC (3.80-5.40) m/uL Hgb (11.4-16.0) gm/dL Hct (34.0-46.0) % Neutrophils # (1.3-7.7) k/uL Lymphocytes # (1.0-4.8) k/uL BUN (7-17) mg/dL Creatinine (0.52-1.04) mg/dL Glucose (74-99) mg/dL POC Glucose (mg/dL) 112 H 188 H 131 H (75-99) mg/dL C-Reactive Protein (<1.0) mg/dL 11/06/20 11/06/20 11/06/20 Range/Units 07:46 07:46 11:26 WBC 13.9 H (3.8-10.6) k/uL RBC 3.57 L (3.80-5.40) m/uL Hgb 10.5 L (11.4-16.0) gm/dL Hct 32.8 L (34.0-46.0) % Neutrophils # 12.7 H (1.3-7.7) k/uL Lymphocytes # 0.7 L (1.0-4.8) k/uL BUN 25 H (7-17) mg/dL Creatinine 0.40 L (0.52-1.04) mg/dL Glucose 107 H (74-99) mg/dL POC Glucose (mg/dL) 135 H (75-99) mg/dL C-Reactive Protein 3.4 H (<1.0) mg/dL Microbiology - Last 24 Hours (Table) 11/03/20 04:30 Blood Culture - Preliminary Blood No Growth after 72 hours Assessment and Plan Assessment: Bilateral pneumonia, related to Covid infection and possible bacterial superinfection Possible sepsis secondary to above Recent history of bilateral Covid pneumonia Chronic respiratory failure Acute COPD exacerbation Metabolic encephalopathy on the top of dementia Chronic anxiety History of pulmonary hypertension History of seizure History of GERD Hypertension Possible senile dementia Plan: This is a pleasant 80 years old female who presents with COPD, recurrent pneumonia. Zosyn Continue with Solu-Medrol Continue with Xarelto Labs and medication were reviewed.. Continue same treatment. Continue with symptomatic treatment. Resume home medication. Monitor lytes and vitals. DVT and GI prophylaxis. Further recommendations depends on the clinical course of the patient DVT prophylaxis: Xarelto GI Prophylaxis: Ppi Prognosis is guarded
[2020-11-06 16:52] LABS: Glucose,Whole Blood 101 mg/dL (75-99)
[2020-11-06] MEDS: CHOLECALCIFEROL 25 MCG (1000 IU) TABLET PO SCH (17:11)
[2020-11-06] MEDS: ASCORBIC ACID 500 MG TAB PO SCH (17:11)
[2020-11-06 21:00] LABS: Glucose,Whole Blood 157 mg/dL (75-99)
[2020-11-06] MEDS: SODIUM CHLORIDE 0.9% 1,000 ML IV SCH (22:03)
[2020-11-07] MEDS: SODIUM CHLORIDE 0.9% 1,000 ML IV SCH ×2 (02:13→22:08)
[2020-11-07] MEDS: PIPERACILLIN-TAZOBACTAM 3.375 GM in SODIUM CHLORIDE 0.9% 100 ML IVPB SCH ×3 (05:28→21:40)
[2020-11-07 07:11] LABS: Glucose,Whole Blood 79 mg/dL (75-99)
[2020-11-07] MEDS: INSULIN ASPART (NovoLOG) 100 UNIT/ML VIAL SQ SCH ×4 (07:22→20:32)
[2020-11-07] MEDS: LOSARTAN 25 MG TAB PO SCH ×2 (08:13→08:14)
[2020-11-07] MEDS: levETIRAcetam ORAL SOLN 500 MG/5 ML CUP PO SCH ×2 (08:13→19:39)
[2020-11-07] MEDS: LORATADINE 10 MG TAB PO SCH ×2 (08:13→17:18)
[2020-11-07] MEDS: PANTOPRAZOLE 40 MG TABLET PO SCH (08:13)
[2020-11-07] MEDS: RIVAROXABAN 15 MG TAB PO SCH ×2 (08:15→17:18)
[2020-11-07] MEDS: AZITHROMYCIN 500 MG in SODIUM CHLORIDE 0.9% 250 ML IVPB SCH (08:15)
[2020-11-07] MEDS: ALBUTEROL HFA INHALER INHALATION SCH ×4 (08:16→19:02)
[2020-11-07] MEDS: SYMBICORT 160-4.5 MCG INHALER INHALATION SCH ×2 (08:17→19:02)
[2020-11-07] MEDS: TIOTROPIUM 2.5 MCG INHALER INHALATION SCH (08:17)
[2020-11-07] MEDS: LIDOCAINE 5% PATCH TOPICAL SCH (08:26)
--- NOTE | 2020-11-07 10:59 | P.PN ---
Subjective Progress Note Date: 11/07/20 This is a 80-year-old here patient is coming in for shortness of breath. The patient was in the hospital and she was seen in consultation back in 10/19/2020 and she was diagnosed having bilateral COVID-19 related pneumonia and acute pulmonary embolism and hypoxic respiratory failure. She is also known to have advanced COPD and she has moderate protein calorie malnutrition. Other medical problems of hypertension and acid reflux and she has chronic medical debility. The patient was treated on an inpatient basis with steroids, she was given multivitamin and Remdesivir and she was discharged on prednisone burst taper and Xarelto. She was also having oxygen saturation she was given O2 at a time of discharge. She was discharged to [facility]. Her CODE STATUS is full. The patient came back to the emergency department yesterday because of worsening shortness of breath. The white cell count was at 17.6 with a hemoglobin of 11.7. The chest x-ray showed emphysema and chronic fibrotic changes especially in the right upper lobe. There are also some tiny bilateral pleural effusions. Comparing to the earlier chest x-ray from 10/21/2020, the film is underpenetrated. No significant abnormalities seen in comparison. There is also thoracic kyphoscoliosis to the left. The current electrodes are normal. BUN is 23 and a creatinine of 0.3. The proBNP level is at 141. CRP is at 16.7. Troponin was less than 0.01. LDH level was 691. UA was consistent with an infection as the patient had bacteria and increased white cell counts. Coagulation profile was within normal limits. Reviewed the CAT scan of the chest from June 2020. The patient has extensive incidences emphysematous mcdonald ge with an upper lobe predominance. There is a large bolus also occupying the right upper lobe and adjacent scarring and fibrosis. Not appreciate any groundglass changes that could typically accompany COVID-19 related pneumonia. Nevertheless, there was extensive emphysematous changes bilaterally with centrilobular changes. There was also evidence of pulmonary artery hypertension and small effusions. As for the irregular opacity in the posterior margin of the right upper lobe, this was felt to be probably a scar although malignancy could not be excluded. Measuring 1.5 x 0.9 cm in size. This was at the posterior margin of the pneumatocele/bolus. In addition there was a chronic T12 compression fracture deformity of the thoracic spine. At this point in time the patient off IV tigecycline by nasal cannula. The patient is also on IV Zosyn, Zithromax, IV fluids with normal sed rate of 136 an hour and albuterol nebulized treatments every 4 hours only on a when necessary basis. Noted the patient was taking 10 mg of prednisone as maintenance. She was also using Symbicort at home 2 puffs twice a day and DuoNeb nebulized treatments around the clock 4 times a day. On today's evaluation on 11/04/2020 patient seen in follow-up on medical surgical floor, she is awake and alert, oriented 3, she states she is feeling breathing better today, does have a congested cough, not able to bring up much phlegm. No complaints of chest discomfort, no fever or chills, she remains on 3 L of oxygen pulse ox is 95%, this is usually what the patient wears at home on a regular basis 3 L of oxygen around the clock. Vital signs have been stable, she remains on a combination of azithromycin and Zosyn for antibiotic coverage, urinalysis showed infected urine, urine culture is pending, overnight she has had no acute events, she remains on IV steroids, antibiotics and breathing treatments. On today's evaluation on 11/05/2020 patient seen in follow-up on general medical surgical floor. She is sitting up in the recliner, appears to be in no acute distress. Breathing comfortably, she is on 3 L of oxygen pulse ox of 99%, she's had no fever or chills, blood pressure is been stable. Follow-up chest x-ray yesterday showed a right upper lobe infiltrate with some slight improvement. Patient remains on nebulized bronchodilators, azithromycin, Zosyn, she is on oral anticoagulation in the form of Xarelto, she also remains on antibiotics with azithromycin and Zosyn. Her urine culture showed group D enterococcus 11/06/2020, this debilitated patient is being seen for a follow-up. No new complaints. She has enterococcus group D in her urine and the patient is currently on IV Zosyn. She is also on Zithromax. Extremely poor performance and functional status. Extremities cachectic. Recent COVID-19 related pneumonia/infection from which the patient has recovered. She is still on bronchodilators. She is afebrile. Oral intake remains quite low and the patient is not meeting her nutritional requirements. No dyspnea at rest. No mental status change. Blood work was noted. White cell count of 13.9. Normal renal function. Normal electrolytes. LDH level is down to 4:30. Creatinine is at 0.4. 11/07/2020, the patient is complaining some dryness in the nose. She is on o xygen at 3 L per minute nasal cannula. She is on bronchodilators. She is on systemic steroids. Extremely poor performance and functional status secondary to above-mentioned comorbidities. She is on IV Zosyn regarding the enterococcal urinary tract infection. She has enterococcus in the urine. She remains very much emaciated and has a very poor performance and functional status. She remains on a combination of Zosyn and Zithromax for now. Objective - Vital Signs Vital signs: Vital Signs Temp 98.4 F 11/07/20 10:00 Pulse 89 11/07/20 10:00 Resp 18 11/07/20 10:00 BP 131/70 11/07/20 10:00 Pulse Ox 98 11/07/20 10:00 Intake & Output 11/06/20 11/07/20 11/07/20 18:59 06:59 18:59 Intake Total 822 240 Output Total 3 Balance 819 240 Intake: Intake, IV Titration 350 Amount Azithromycin 500 mg In 250 Sodium Chloride 0.9% 250 ml @ 250 mls/hr IVPB DAILY RUBIN Rx#:[id number] Piperacillin-Tazobactam 3 100 .375 gm In Sodium Chloride 0.9% 100 ml @ 25 mls/hr IVPB Q8H RUBIN Rx#: [id number] Oral 472 240 Output: Urine 3 Other: Voiding Method Bedpan Bedpan Bedpan # Voids 1 1 2 # Bowel Movements 1 2 - Exam GENERAL EXAM: Alert, very pleasant, frail-looking 80-year-old white female, 3 L with a pulse ox of 97-98% comfortable in no apparent distress. HEAD: Normocephalic/atraumatic. EYES: Normal reaction of pupils, equal size. Conjunctiva pink, sclera white. NOSE: Clear with pink turbinates. THROAT: No erythema or exudates. NECK: No masses, no JVD, no thyroid enlargement, no adenopathy. CHEST: No chest wall deformity. Symmetrical expansion. LUNGS: Equal air entry with diminished breath sounds bilaterally, and scattered rhonchi patient does have congested loose nonproductive cough CVS: Regular rate and rhythm, normal S1 and S2, no gallops, no murmurs, no rubs ABDOMEN: Soft, nontender. No hepatosplenomegaly, normal bowel sounds, no guarding or rigidity. EXTREMITIES: No clubbing, no edema, no cyanosis, 2+ pulses and upper and lower extremities. MUSCULOSKELETAL: Muscle strength and tone normal. SPINE: No scoliosis or deformity SKIN: No rashes CENTRAL NERVOUS SYSTEM: Alert and oriented -3. No focal deficits, tone is normal in all 4 extremities. PSYCHIATRIC: Alert and oriented -3. Appropriate affect. Intact judgment and insight. - Labs CBC & Chem 7: 11/06/20 07:46 11/06/20 07:46 Labs: Abnormal Lab Results - Last 24 Hours (Table) 11/06/20 11/06/20 11/06/20 Range/Units 11:26 16:51 20:57 POC Glucose (mg/dL) 135 H 101 H 157 H (75-99) mg/dL Microbiology - Last 24 Hours (Table) 11/03/20 04:30 Blood Culture - Preliminary Blood No Growth after 96 hours 11/03/20 04:30 Urine Culture - Final Urine,Voided Enterococcus faecalis Assessment and Plan Plan: 1 acute COPD exacerbation. Patient has had multiple hospital admissions for the same. The patient had a recent hospitalization for COVID-19 infection. Although, the review of the CAT scan did not show typical pneumonitis related to cope with. She has been infected with MRSA based on his sputum analysis from July 2019. Her current chest x-ray showing a hematocele in the right upper lobe/bolus in addition to some chronic scarring in the right upper lobe. There is diffuse emphysematous change bilaterally. No clear indication of any superinfection at this point in time. 2 COPD with chronic hypoxic respiratory failure a she has been on oxygen for many years. Based on our previous evaluation, she had an FEV1 of less than 50% of predicted and she carries more than [id number] smoking history. 3 bilateral pulmonary embolism currently on anticoagulation with Xarelto. 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 Carries a very poor prognosis. She had a longterm resident. The patient will be offered oxygen and the fluid be titrated to maintain a saturation above 90%. Her COPD is end-stage. She has senile debility along with debility due to a advanced and end-stage COPD. Prognosis extremely poor as mentioned.
--- NOTE | 2020-11-07 11:13 | P.PN ---
Subjective This is a pleasant 80 years old female with past medical history of severe COPD, bilateral pulmonary emboli related to recent infection of coronavirus, chronic anxiety, pulmonary hypertension history of seizure, GERD, hypertension. Patient is poor historian. She was sent from [facility] for dyspnea and hypoxia. Also with increased confusion. She was recently discharged from this hospital on 10/22 for Covid infection and pneumonia in both lungs and pulmonary emboli related to Covid infection, she was discharged on Xarelto Patient denies any abdominal complaints, she is cachectic, she was mildly hypotensive on admission 94/63 on admission, tachycardic with heart rate 102, afebrile. Labs reviewed. Patient has chronic leukocytosis, on discharge last time it was 19.8, today her WBC is 17.6 K. INR is 1.2. BMP is unremarkable with creatinine 0.3 and sodium 134. Lactate dehydrogenase is elevated today at 691, increased C-reactive protein at 16.7 chest x-ray: Bilateral pneumonia with slightly worse than old exam, emphysema EKG: Sinus tachycardia at [address]-T changes. In the emergency room patient was started on Solu-Medrol 1 and Zithromax. Continue with prednisone 10 mg 11/04/2020 Patient is more awake today but still wheezing and still with expiratory phase prolongation and she still have some dyspnea on talking. She has weak congested cough. Hemodynamically stable. Obesity trending down to 15 K. Her oxygen saturation actually improved down to 3 L/m which is her baseline at [facility] she uses 3-4 L/m This x-ray showing persistent right upper lobe infiltrate which is a slightly better Distal on Zithromax, Zosyn, salmeterol and normal saline at 75 mL/h 11/05/2020 Patient pneumonia is improving, she is less dyspneic, her blood pressure is a stable, her oxygen saturation is improved down to 3 L/m which is her baseline of 3-4 L minute at home No labs from today Urine culture is growing enterococcus and final result is pending Procedure well he is improving and she is less wheezing and her sister slower to 40 mg today by pulmonary team We will keep fluid at normal sinus 75 mL per hour because was borderline elevated here this morning. Continue Zithromax and Zosyn Repeat chest x-ray and labs tomorrow 11/06/2020 Although patient breathing improving every day however she still dyspneic especially when talking, very debilitated and it looks like baseline is dyspnea. She has advanced/end-stage COPD as per pulmonary evaluation Although her saturation is improving and she is currently on 3 L oxygen via nasal cannula saturating 99%, she is breathing quite Liatris but once she started talking she got really dyspneic. LDH is normal today and C-reactive protein significantly improved down to 3.4. She is kept on normal saline 75 mL/h, Solu-Medrol 40 mg and Zithromax and Zosyn But her prognosis is really poor on both on the short and long-term 11/07/2020 Patient showing only slight and slow progression and improvement in her respiratory status, if she distended but do not think she is breathing quietly months once she started SHE got to the short of breath although she is saturating high 90s on 3 L oxygen via nasal cannula which is close are similar to her baseline. It looks like she has advanced and end stage COPD and she is kept on Solu-Medrol 40 mg and also covered with antibiotics of this Zithromax and IV Zosyn. As well as normal sinus 75 mL/h I explained to the patient her prognosis which is not that great and she verbalized understanding and acceptance. [facility] Also he is asking for her pain medication because of her chronic shoulder pain at night Objective - Vital Signs Vital signs: Vital Signs Temp 98.4 F 11/07/20 10:00 Pulse 89 11/07/20 10:00 Resp 18 11/07/20 10:00 BP 131/70 11/07/20 10:00 Pulse Ox 98 11/07/20 10:00 Intake & Output 11/06/20 11/07/20 11/07/20 18:59 06:59 18:59 Intake Total 822 240 Output Total 3 Balance 819 240 Intake: Intake, IV Titration 350 Amount Azithromycin 500 mg In 250 Sodium Chloride 0.9% 250 ml @ 250 mls/hr IVPB DAILY RUBIN Rx#:[id number] Piperacillin-Tazobactam 3 100 .375 gm In Sodium Chloride 0.9% 100 ml @ 25 mls/hr IVPB Q8H RUBIN Rx#: [id number] Oral 472 240 Output: Urine 3 Other: Voiding Method Bedpan Bedpan Bedpan # Voids 1 1 2 # Bowel Movements 1 2 - Exam GENERAL: The patient is alert and oriented x3, not in any acute distress. Well developed, well nourished. HEENT: Pupils are round and equally reacting to light. EOMI. No scleral icterus. No conjunctival pallor. Normocephalic, atraumatic. No pharyngeal erythema. No thyromegaly. CARDIOVASCULAR: S1 and S2 present. No murmurs, rubs, or gallops. -PULMONARY: Chest is clear to auscultation, bilateral crackles. Acute kidney ABDOMEN: Soft, nontender, nondistended, normoactive bowel sounds. No palpable organomegaly. MUSCULOSKELETAL: No joint swelling or deformity. EXTREMITIES: No cyanosis, clubbing, or pedal edema. NEUROLOGICAL: Gross neurological examination did not reveal any focal deficits. SKIN: No rashes. No petechiae - Labs CBC & Chem 7: 11/06/20 07:46 11/06/20 07:46 Labs: Abnormal Lab Results - Last 24 Hours (Table) 11/06/20 11/06/20 11/06/20 Range/Units 11:26 16:51 20:57 POC Glucose (mg/dL) 135 H 101 H 157 H (75-99) mg/dL Microbiology - Last 24 Hours (Table) 11/03/20 04:30 Blood Culture - Preliminary Blood No Growth after 96 hours 11/03/20 04:30 Urine Culture - Final Urine,Voided Enterococcus faecalis Assessment and Plan Assessment: Bilateral pneumonia, related to Covid infection and possible bacterial superinfection Possible sepsis secondary to above Recent history of bilateral Covid pneumonia Chronic respiratory failure Acute COPD exacerbation Metabolic encephalopathy on the top of dementia Chronic anxiety History of pulmonary hypertension History of seizure History of GERD Hypertension Possible senile dementia Plan: This is a pleasant 80 years old female who presents with COPD, recurrent pneumonia. Zosyn Continue with Solu-Medrol Continue with Xarelto Labs and medication were reviewed.. Continue same treatment. Continue with symptomatic treatment. Resume home medication. Monitor lytes and vitals. DVT and GI prophylaxis. Further recommendations depends on the clinical course of the patient DVT prophylaxis: Xarelto GI Prophylaxis: Ppi Prognosis is guarded
[2020-11-07 11:37] LABS: Glucose,Whole Blood 100 mg/dL (75-99)
[2020-11-07 16:58] LABS: Glucose,Whole Blood 91 mg/dL (75-99)
[2020-11-07] MEDS: CHOLECALCIFEROL 25 MCG (1000 IU) TABLET PO SCH (17:18)
[2020-11-07] MEDS: ASCORBIC ACID 500 MG TAB PO SCH (17:18)
[2020-11-07] MEDS: ALPRAZolam 0.25 MG TAB PO PRN (19:39)
[2020-11-07] MEDS: ACETAMINOPHEN TAB 500 MG TAB PO PRN (19:47)
[2020-11-07 20:29] LABS: Glucose,Whole Blood 110 mg/dL (75-99)
[2020-11-07] MEDS: MELATONIN 3 MG TABLET PO PRN (21:41)
[2020-11-08] MEDS: SODIUM CHLORIDE 0.9% 1,000 ML IV SCH ×3 (05:10→19:37)
[2020-11-08] MEDS: PIPERACILLIN-TAZOBACTAM 3.375 GM in SODIUM CHLORIDE 0.9% 100 ML IVPB SCH ×3 (05:13→19:34)
[2020-11-08 06:55] LABS: Glucose,Whole Blood 94 mg/dL (75-99)
[2020-11-08] MEDS: LIDOCAINE 5% PATCH TOPICAL SCH (08:27)
[2020-11-08] MEDS: ALPRAZolam 0.25 MG TAB PO PRN ×2 (08:27→19:34)
[2020-11-08] MEDS: INSULIN ASPART (NovoLOG) 100 UNIT/ML VIAL SQ SCH ×4 (08:27→20:57)
[2020-11-08] MEDS: levETIRAcetam ORAL SOLN 500 MG/5 ML CUP PO SCH ×2 (08:27→19:34)
[2020-11-08] MEDS: LORATADINE 10 MG TAB PO SCH ×2 (08:27→16:31)
[2020-11-08] MEDS: PANTOPRAZOLE 40 MG TABLET PO SCH (08:28)
[2020-11-08] MEDS: SYMBICORT 160-4.5 MCG INHALER INHALATION SCH ×2 (08:48→19:56)
[2020-11-08] MEDS: ALBUTEROL HFA INHALER INHALATION SCH ×4 (08:48→19:56)
[2020-11-08] MEDS: TIOTROPIUM 2.5 MCG INHALER INHALATION SCH (08:48)
[2020-11-08] MEDS: RIVAROXABAN 15 MG TAB PO SCH ×2 (09:18→16:35)
[2020-11-08] MEDS: ACETAMINOPHEN TAB 500 MG TAB PO PRN ×2 (10:55→19:33)
[2020-11-08 11:46] LABS: Glucose,Whole Blood 120 mg/dL (75-99)
--- NOTE | 2020-11-08 14:24 | P.PN ---
Subjective Progress Note Date: 11/08/20 Principal diagnosis: COPD exacerbation. This is a 80-year-old here patient is coming in for shortness of breath. The patient was in the hospital and she was seen in consultation back in 10/19/2020 and she was diagnosed having bilateral COVID-19 related pneumonia and acute pulm onary embolism and hypoxic respiratory failure. She is also known to have advanced COPD and she has moderate protein calorie malnutrition. Other medical problems of hypertension and acid reflux and she has chronic medical debility. The patient was treated on an inpatient basis with steroids, she was given multivitamin and Remdesivir and she was discharged on prednisone burst taper and Xarelto. She was also having oxygen saturation she was given O2 at a time of discharge. She was discharged to [facility]. Her CODE STATUS is full. The patient came back to the emergency department yesterday because of worsening shortness of breath. The white cell count was at 17.6 with a hemoglobin of 11.7. The chest x-ray showed emphysema and chronic fibrotic changes especially in the right upper lobe. There are also some tiny bilateral pleural effusions. Comparing to the earlier chest x-ray from 10/21/2020, the film is underpenetrated. No significant abnormalities seen in comparison. There is also thoracic kyphoscoliosis to the left. The current electrodes are normal. BUN is 23 and a creatinine of 0.3. The proBNP level is at 141. CRP is at 16.7. Troponin was less than 0.01. LDH level was 691. UA was consistent with an infection as the patient had bacteria and increased white cell counts. Coagulation profile was within normal limits. Reviewed the CAT scan of the chest from June 2020. The patient has extensive incidences emphysematous change with an upper lobe predominance. There is a large bolus also occupying the right upper lobe and adjacent scarring and fibrosis. Not appreciate any groundglass changes that could typically accompany COVID-19 related pneumonia. Nevertheless, there was extensive emphysematous changes bilaterally with centrilobular changes. There was also evidence of pulmonary artery hypertension and small effusions. As for the irregular opacity in the posterior margin of the right upper lobe, this was felt to be probably a scar although malignancy could not be excluded. Measuring 1.5 x 0.9 cm in size. This was at the posterior margin of the pneumatocele/bolus. In addition there was a chronic T12 compression fracture deformity of the thoracic spine. At this point in time the patient off IV tigecycline by nasal cannula. The patient is also on IV Zosyn, Zithromax, IV fluids with normal sed rate of 136 an hour and albuterol nebulized treatments every 4 hours only on a when necessary basis. Noted the patient was taking 10 mg of prednisone as maintenance. She was also using Symbicort at home 2 puffs twice a day and DuoNeb nebulized treatments around the clock 4 times a day. On today's evaluation on 11/04/2020 patient seen in follow-up on medical surgical floor, she is awake and alert, oriented 3, she states she is feeling breathing better today, does have a congested cough, not able to bring up much phlegm. No complaints of chest discomfort, no fever or chills, she remains on 3 L of oxygen pulse ox is 95%, this is usually what the patient wears at home on a regular basis 3 L of oxygen around the clock. Vital signs have been stable, she remains on a combination of azithromycin and Zosyn for antibiotic coverage, urinalysis showed infected urine, urine culture is pending, overnight she has had no acute events, she remains on IV steroids, antibiotics and breathing treatments. On today's evaluation on 11/05/2020 patient seen in follow-up on general medical surgical floor. She is sitting up in the recliner, appears to be in no acute distress. Breathing comfortably, she is on 3 L of oxygen pulse ox of 99%, she's had no fever or chills, blood pressure is been stable. Follow-up chest x-ray yesterday showed a right upper lobe infiltrate with some slight improvement. Patient remains on nebulized bronchodilators, azithromycin, Zosyn, she is on oral anticoagulation in the form of Xarelto, she also remains on antibiotics with azithromycin and Zosyn. Her urine culture showed group D enterococcus 11/06/2020, this debilitated patient is being seen for a follow-up. No new complaints. She has enterococcus group D in her urine and the patient is currently on IV Zosyn. She is also on Zithromax. Extremely poor performance and functional status. Extremities cachectic. Recent COVID-19 related pneumo yovana/infection from which the patient has recovered. She is still on bronchodilators. She is afebrile. Oral intake remains quite low and the patient is not meeting her nutritional requirements. No dyspnea at rest. No mental status change. Blood work was noted. White cell count of 13.9. Normal renal function. Normal electrolytes. LDH level is down to 4:30. Creatinine is at 0.4. 11/07/2020, the patient is complaining some dryness in the nose. She is on oxygen at 3 L per minute nasal cannula. She is on bronchodilators. She is on systemic steroids. Extremely poor performance and functional status secondary to above-mentioned comorbidities. She is on IV Zosyn regarding the enterococcal urinary tract infection. She has enterococcus in the urine. She remains very much emaciated and has a very poor performance and functional status. She remains on a combination of Zosyn and Zithromax for now. Progress note dated 11/08/2020. 80-year-old female who was admitted with a COPD exacerbation. She has severe COPD. In addition, she has chronic hypoxemic respiratory failure, bilateral pulmonary embolism, COVID 19 infection back in October 2020, T12 compression fracture, anorexia/cachexia syndrome of chronic illness, seizure disorder, chronic anxiety, and pulmonary hypertension. She is also being treated for enterococcal UTI. Currently she is on 2 L with saturations of 98%. Heart rates of 100. Blood pressure 130/71 and she is afebrile. No new laboratory data today. Objective - Vital Signs Vital signs: Vital Signs Temp 98.5 F 11/08/20 09:31 Pulse 112 H 11/08/20 09:31 Resp 18 11/08/20 09:31 BP 130/71 11/08/20 09:31 Pulse Ox 98 11/08/20 09:31 Intake & Output 11/07/20 11/08/20 11/08/20 18:59 06:59 18:59 Intake Total 1130 Balance 1130 Weight 38.555 kg Intake: Intake, IV Titration 350 Amount Azithromycin 500 mg In 250 Sodium Chloride 0.9% 250 ml @ 250 mls/hr IVPB DAILY RUBIN Rx#:[id number] Piperacillin-Tazobactam 3 100 .375 gm In Sodium Chloride 0.9% 100 ml @ 25 mls/hr IVPB Q8H RUBIN Rx#: [id number] Oral 780 Other: Voiding Method Bedpan Bedpan # Voids 3 1 # Bowel Movements 3 - Exam No acute distress, a bit confused, in no respiratory distress. There is no audible wheezing, use of accessory muscles, or conversational dyspnea. HEENT examination is grossly unremarkable. Neck supple. Full range of motion. No adenopathy thyromegaly or neck vein distention. Cardiovascular examination reveals regular rhythm rate. S1-S2 normal. No S3 or S4. No discernible murmur noted. Heart sounds are distant. Heart rate 100 bpm. Lungs reveal severely diminished breath sounds throughout. Mild scattered rhonchi are noted. No wheezes or crackles. Breath sounds are equal bilaterally. Abdomen soft bowel sounds are heard. No masses or tenderness. Extremities are intact. No cyanosis clubbing or edema. Skin is without rash or lesion. Neurologic examination is brief but nonfocal. - Labs CBC & Chem 7: 11/06/20 07:46 11/06/20 07:46 Labs: Abnormal Lab Results - Last 24 Hours (Table) 11/07/20 11/08/20 Range/Units 20:26 11:45 POC Glucose (mg/dL) 110 H 120 H (75-99) mg/dL Microbiology - Last 24 Hours (Table) 11/03/20 04:30 Blood Culture - Preliminary Blood No Growth after 120 hours Assessment and Plan Assessment: Acute COPD exacerbation, somewhat improved. Right upper lobe pneumatocele, likely secondary to prior staph infection. Chronic hypoxemic respiratory failure. Severe COPD, with an FEV1 that's less than 50% of predicted. Previous history of 24-wmmh-mczm history of tobacco use. Bilateral pulmonary embolism, currently on factor X a inhibitor. COVID 19 infection, October 2020. T12 compression fracture. Anorexia/cachexia syndrome secondary to advanced COPD. History of seizure disorder. Chronic anxiety. History of pulmonary hypertension. Enterococcal urinary tract infection. Plan: Plan dated 11/08/2020. Currently, the patient remains on albuterol sulfate, Symbicort, Spiriva, and antibiotics. Additional recommendations and suggestions are forthcoming. Discharge planning underway. The patient is pretty much at baseline in my opinion. No additional recommendations are made at this time. We will continue to follow make recommendations where appropriate. Time with Patient: Less than 30
[2020-11-08] MEDS: CHOLECALCIFEROL 25 MCG (1000 IU) TABLET PO SCH (16:30)
[2020-11-08] MEDS: HYDROcodone/APAP 5-325MG 1 EACH TAB PO PRN (16:30)
[2020-11-08] MEDS: ASCORBIC ACID 500 MG TAB PO SCH (16:31)
[2020-11-08 17:02] LABS: Glucose,Whole Blood 98 mg/dL (75-99)
--- NOTE | 2020-11-08 19:10 | P.PN ---
Progress Note - Text Progress Note Date: 11/08/20 Chief Complaint: Shortness of breath History of presenting complaint: This is a 80-year-old patient,from [facility]. followed by Dr. Granado. By the EMS report patient had been noticed to be increasingly short of breath for the day. stopped smoking 2 years ago. 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 Has been nonambulatory. Recently in the hospital from October 16 through October 22. Diagnosed with bilateral pulmonary embolism started on xarelto. Bilateral: COVID pneumonia. Not felt to have bacterial pneumonia. COPD exacerbation. Protein calorie malnutrition. Admitted this time with acute COPD exacerbation and acute on chronic hypoxic respiratory failure. Questionable pneumonia. The was started on IV Zosyn. 11/08/2020: Laying in bed. Some shortness of breath at rest and with minimal activity and especially with speaking. On 2 L of nasal cannula. Eating some. Tired. Having pain in the left hip on the stroke side. I spoke to the patient about her poor pulmonary status. Massimo for a family meeting late in the even ing. Review of systems: Was done for constitutional, cardiovascular, GI, pulmonary. relevant finding as above Active Medications Acetaminophen (Acetaminophen Tab 500 Mg Tab) 500 mg PO Q6HR PRN PRN Reason: Fever and/ or Pain Last Admin: 11/08/20 10:55 Dose: 500 mg Documented by: Hydrocodone Bitart/Acetaminophen (Hydrocodone/Apap 5-325mg 1 Each Tab) 1 each PO Q6HR PRN PRN Reason: Pain Last Admin: 11/08/20 16:30 Dose: 1 each Documented by: Albuterol Sulfate (Albuterol Hfa Inhaler) 2 puff INHALATION RT-QID [facility] Last Admin: 11/08/20 16:29 Dose: Not Given Documented by: Albuterol Sulfate (Albuterol Hfa Inhaler) 2 puff INHALATION RT-Q4H PRN PRN Reason: Shortness Of Breath Or Wheezing Alprazolam (Alprazolam 0.25 Mg Tab) 0.25 mg PO BID PRN PRN Reason: ANXIETY, UNTIL 11/04/20 Last Admin: 11/08/20 08:27 Dose: 0.25 mg Documented by: Ascorbic Acid (Ascorbic Acid 500 Mg Tab) 1,000 mg PO DAILY@1700 RUBIN Last Admin: 11/08/20 16:31 Dose: 1,000 mg Documented by: Bisacodyl (Bisacodyl 10 Mg Supp) 10 mg RECTAL DAILY PRN PRN Reason: Constipation Budesonide/Formoterol Fumarate (Symbicort 160-4.5 Mcg Inhaler) 2 puff INHALATION RT-BID [facility] Last Admin: 11/08/20 08:48 Dose: 2 puff Documented by: Cholecalciferol (Cholecalciferol 25 Mcg (1000 Iu) Tablet) 100 mcg PO DAILY@1700 [facility] Last Admin: 11/08/20 16:30 Dose: 100 mcg Documented by: Sodium Chloride (Saline 0.9%) 1,000 mls @ 75 mls/hr IV .[id number] [facility] Last Admin: 11/08/20 17:21 Dose: Not Given Documented by: Piperacillin Sod/Tazobactam (Sod 3.375 gm/ Sodium Chloride) 100 mls @ 25 mls/hr IVPB Q8H [facility] Last Admin: 11/08/20 13:38 Dose: 25 mls/hr Documented by: Insulin Aspart (Insulin Aspart (Novolog) 100 Unit/Ml Vial) 0 unit SQ ACHS [facility]; Protocol Last Admin: 11/08/20 17:32 Dose: Not Given Documented by: Levetiracetam (Levetiracetam Oral Soln 500 Mg/5 Ml Cup) 500 mg PO BID@0800,2100 [facility] Last Admin: 11/08/20 08:27 Dose: 500 mg Documented by: Lidocaine (Lidocaine 5% Patch) 1 patch TOPICAL DAILY@0800 [facility]; Protocol Last Admin: 11/08/20 08:27 Dose: 1 patch Documented by: Loratadine (Loratadine 10 Mg Tab) 5 mg PO BID@0800,1700 [facility] Last Admin: 11/08/20 16:31 Dose: 5 mg Documented by: Losartan Potassium (Losartan 25 Mg Tab) 25 mg PO DAILY@0800 [facility] Last Admin: 11/07/20 08:14 Dose: 25 mg Documented by: Magnesium Hydroxide (Magnesium Hydroxide 2,400 Mg/10 Ml Cup) 2,400 mg PO DAILY PRN PRN Reason: Constipation Melatonin (Melatonin 3 Mg Tablet) 3 mg PO HS PRN PRN Reason: Insomnia Last Admin: 11/07/20 21:41 Dose: 3 mg Documented by: Miscellaneous Information (Pneumonia Protocol Utilized 1 Each Misc) 1 each PO ONCE PRN PRN Reason: Per Protocol Pantoprazole Sodium (Pantoprazole 40 Mg Tablet) 40 mg PO DAILY@0800 [facility] Last Admin: 11/08/20 08:28 Dose: 40 mg Documented by: Rivaroxaban (Rivaroxaban 15 Mg Tab) 15 mg PO BID@0800,1700 [facility]; Protocol Last Admin: 11/08/20 16:35 Dose: 15 mg Documented by: Sodium Chloride (Sodium Chloride 0.65% Nasal [place] 44 Ml Btl) 1 spray NASAL Q2H PRN PRN Reason: Dry Nasal Passages Tiotropium Rowdy (Tiotropium 2.5 Mcg Inhaler) 2 puff INHALATION RT-DAILY [facility] Last Admin: 11/08/20 08:48 Dose: 2 puff Documented by: Past medical history to include: COPD, stroke with left-sided weakness, home oxygen 3 L, Social history: Patient smoking from the age of 16 up to 2 years ago. One pack a day. No alcohol. Currently at [facility]. Family history: Mother from a ruptured brain aneurysm. Coronary artery disease Physical examination: VITAL SIGNS: 98.5, 112, 20, 130/71, 98% on 2 L GENERAL: Reclining in bed, awake, very thin built with muscle wasting , tired gets easily short of breath EYES: Pupils equal. Conjunctiva pale. HEENT: External appearance of nose and ears normal, oral cavity grossly normal. Hard of hearing NECK: JVD not raised; masses not palpable. HEART: First and second heart sounds are normal; no edema. LUNGS: Respiratory rate increased; diminished breath sounds ABDOMEN: Soft, nontender, liver spleen not palpable, no masses palpable. PSYCH: Patient is able to answer simple questions MUSCULAR skeletal: Diffuse wasting of muscles, muscle muscle mass, prominent bones, osteoarthritis NEURO: Left-sided weakness INVESTIGATIONS, reviewed in the clinical context: WBC 13.9 hemoglobin 10.5 platelets 379 potassium 3.7 BUN 25 creatinine 0.40 Chest x-ray film personally reviewed by me-hyperinflation. Tubular heart. Possible bulla Assessment and plan: -Acute exacerbation of advanced prednisone dependent COPD in a previous smoker Ventolin HFA, Symbicort 160/4.5. Spiriva -Possible pneumonia IV Zosyn 3.375 g every 8 -Recent COVID 19 pneumonia. Treated with IV Remdesivir in his steroids -Subacute bilateral pulmonary embolism *Xarelto -Questionable lung mass and new pneumatocele Follow pulmonary -Acute on chronic hypoxic respiratory failure from COPD exacerbation: Better Currently on 2 L of nasal cannula -Moderate protein calorie malnutrition from decreased oral intake Food supplement -Left hemiparesis from prior stroke Patient non-ambulatory -Chronic medical debility -Essential hypertension Cozaar 25 mg daily -GERD Protonix 40 mg daily -Increasing muscular skeletal pain. Primary osteoarthritis Baxter 5/500 one tablet every 6 when necessary - Prognosis guarded. Very limited pulmonary function. Discussed with Dr. Hauser from pulmonary. Prognosis guarded. Continue current treatment. We will add prednisone 40 mg. Advanced care planning: Meeting was held at bedside with the patient, her daughter and son and her hus band. Patient is able to take the decisions but her is the POA. Patient is very poor pulmonary status was discussed including of poor functional status. Patient has not been ambulatory since the middle of this year. Due to the left-sided weakness from stroke. From pulmonary status nothing more can really been offered. Patient is short of breath at rest. A preliminary discussion was had about hospice. Patient and family understand that the patient is to return. Hospice will be appropriate. Rehab will be tried of the potential somewhat limited. Patient is a no code. Other questions were answered. Total time spent for ACP was 20 minutes
[2020-11-08] MEDS: MELATONIN 3 MG TABLET PO PRN (19:33)
[2020-11-08] MEDS: predniSONE 20 MG TAB PO SCH (19:33)
[2020-11-08 20:38] LABS: Glucose,Whole Blood 171 mg/dL (75-99)
[2020-11-09] MEDS: HYDROcodone/APAP 5-325MG 1 EACH TAB PO PRN ×2 (02:56→11:55)
[2020-11-09] MEDS: PIPERACILLIN-TAZOBACTAM 3.375 GM in SODIUM CHLORIDE 0.9% 100 ML IVPB SCH (06:13)
[2020-11-09 06:45] LABS: Glucose,Whole Blood 131 mg/dL (75-99)
[2020-11-09 07:38] VITALS: RESP 18
[2020-11-09] MEDS: INSULIN ASPART (NovoLOG) 100 UNIT/ML VIAL SQ SCH ×2 (08:13→11:25)
[2020-11-09] MEDS: PANTOPRAZOLE 40 MG TABLET PO SCH (08:14)
[2020-11-09] MEDS: levETIRAcetam ORAL SOLN 500 MG/5 ML CUP PO SCH (08:14)
[2020-11-09] MEDS: RIVAROXABAN 15 MG TAB PO SCH (08:14)
[2020-11-09] MEDS: LIDOCAINE 5% PATCH TOPICAL SCH (08:14)
[2020-11-09] MEDS: LOSARTAN 25 MG TAB PO SCH (08:14)
[2020-11-09] MEDS: predniSONE 20 MG TAB PO SCH (08:14)
[2020-11-09] MEDS: LORATADINE 10 MG TAB PO SCH (08:14)
[2020-11-09] MEDS ORDERED: LEVOFLOXACIN 500 MG TAB PO SCH (09:00)
[2020-11-09] MEDS: ALBUTEROL HFA INHALER INHALATION SCH ×3 (09:41→16:55)
[2020-11-09] MEDS: TIOTROPIUM 2.5 MCG INHALER INHALATION SCH (09:41)
[2020-11-09] MEDS: SYMBICORT 160-4.5 MCG INHALER INHALATION SCH (09:41)
[2020-11-09 11:23] LABS: Glucose,Whole Blood 110 mg/dL (75-99)
--- NOTE | 2020-11-09 12:15 | P.PN ---
Subjective Progress Note Date: 11/09/20 The patient is seen today 11/09/2020 in follow-up on the regular medical floor. She is currently sitting up in bed. Awake and alert in no acute distress. He is maintaining O2 saturations in the upper 90s to 100% on 2 L/m per nasal cannula. She's afebrile. Hemodynamically stable. Urine culture was positive for Enterococcus faecalis. Glucose 110. Remains on Symbicort, Spiriva, albuterol and prednisone. Antibiotics in the form of Levaquin. Anticoagulated with Xarelto. Objective - Vital Signs Vital signs: Vital Signs Temp 98 F 11/09/20 07:07 Pulse 72 11/09/20 07:07 Resp 18 11/09/20 07:07 BP 122/63 11/09/20 07:07 Pulse Ox 100 11/09/20 07:07 Intake & Output 11/08/20 11/09/20 11/09/20 18:59 06:59 18:59 Intake Total 600 Output Total 250 Balance -250 600 Weight 38.555 kg Intake: Intake, IV Titration 600 Amount Sodium Chloride 0.9% 1, 600 000 ml @ 75 mls/hr IV . [id number] RUBIN Rx#:[id number] Output: Urine 250 Other: # Voids 5 - Exam GENERAL EXAM: Alert, very frail, cachectic 80-year-old female patient on 2 L nasal cannula, fairly, comfortable in no apparent distress. HEAD: Normocephalic. EYES: Normal reaction of pupils, equal size. NOSE: Clear with pink turbinates. THROAT: No erythema or exudates. NECK: No masses, no JVD. CHEST: No chest wall deformity. LUNGS: Equal air entry with no crackles, wheeze, rhonchi or dullness. Diminished. CVS: S1 and S2 normal with no audible murmur, regular rhythm. ABDOMEN: No hepatosplenomegaly, normal bowel sounds, no guarding or rigidity. SPINE: No scoliosis or deformity SKIN: No rashes CENTRAL NERVOUS SYSTEM: No focal deficits, tone is normal in all 4 extremities. EXTREMITIES: There is no peripheral edema. No clubbing, no cyanosis. Pe ripheral pulses are intact. - Labs CBC & Chem 7: 11/06/20 07:46 11/06/20 07:46 Labs: Abnormal Lab Results - Last 24 Hours (Table) 11/08/20 11/09/20 11/09/20 Range/Units 20:35 06:41 11:21 POC Glucose (mg/dL) 171 H 131 H 110 H (75-99) mg/dL Microbiology - Last 24 Hours (Table) 11/03/20 04:30 Blood Culture - Final Blood No Growth after 144 hours Assessment and Plan Assessment: 1 acute COPD exacerbation. Patient has had multiple hospital admissions for the same. The patient had a recent hospitalization for COVID-19 infection. A lthough, the review of the CAT scan did not show typical pneumonitis related to cope with. She has been infected with MRSA based on his sputum analysis from July 2019. Her current chest x-ray showing a hematocele in the right upper lobe/bolus in addition to some chronic scarring in the right upper lobe. There is diffuse emphysematous change bilaterally. No clear indication of any superinfection at this point in time. 2 COPD with chronic hypoxic respiratory failure a she has been on oxygen for many years. Based on our previous evaluation, she had an FEV1 of less than 50% of predicted and she carries more than [id number] smoking history. 3 bilateral pulmonary embolism currently on anticoagulation with Xarelto. 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 7 poor overall functional performance based on the above-mentioned multiple comorbidities 8 history of seizure disorder 9 history of MRSA in the sputum 10 chronic anxiety 11 pulmonary hypertension probably related to chronic advanced lung disease 12 enterococcal UTI Plan: The patient was seen and evaluated by Dr. Hauser Continue with the current treatment plan Overall prognosis is quite poor DO NOT RESUSCITATE/DO NOT INTUBATE CODE STATUS Cleared for discharge to [facility] I, the cosigning physician, performed a history & physical examination of the pa tient. Lungs sounds are clear but diminished. Maintaining good O2 saturations in the 90s on 2 L/m per nasal cannula. I discussed the assessment and plan of care with my nurse practitioner, Darlene Underwood. I attest to the above note as dictated by her.
--- NOTE | 2020-11-09 14:11 | P.DS ---
Providers Date of admission: 11/03/20 05:44 Chief Complaint: Shortness of breath History of presenting complaint: This is a 80-year-old patient,from [facility]. followed by Dr. Granado. By the EMS report patient had been noticed to be increasingly short of breath for the day. stopped smoking 2 years ago. 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 Has been nonambulatory. Recently in the hospital from October 16 through October 22. Diagnosed with bilateral pulmonary embolism started on xarelto. Bilateral: COVID pneumonia. Not felt to have bacterial pneumonia. COPD exacerbation. Protein calorie malnutrition. Admitted this time with acute COPD exacerbation and acute on chronic hypoxic respiratory failure. Questionable pneumonia. The was started on IV Zosyn. 11/08/2020: Laying in bed. Some shortness of breath at rest and with minimal activity and especially with speaking. On 2 L of nasal cannula. Eating some. Tired. Having pain in the left hip on the stroke side. I spoke to the patient about her poor pulmonary status. family meeting was done. That agreed with hospice down the road if things don't improve. Patient was involved in the discussion. 11/09/2020: Sitting about a chair. Family visiting. Eating some. Care was discussed. Questions answered. Complete course of Levaquin.communicated with discharge planners Discussion and discharge planning more than 35 minutes consultation: Dr. Hauser partners from pulmonary Past medical history to include: COPD, stroke with left-sided weakness, home oxygen 3 L, Social history: Patient smoking from the age of 16 up to 2 years ago. One pack a day. No alcohol. Currently at [facility]. Family history: Mother from a ruptured brain aneurysm. Coronary artery disease Physical examination: VITAL SIGNS: 90, 72, 18, 122/63, 100% on 2 L GENERAL: sitting up in a chair, eating lunch, awake, very thin built with muscle wasting , tired gets easily short of breath EYES: Pupils equal. Conjunctiva pale. HEENT: External appearance of nose and ears normal, oral cavity grossly normal. Hard of hearing NECK: JVD not raised; masses not palpable. HEART: First and second heart sounds are normal; no edema. LUNGS: Respiratory rate increased; diminished breath sounds ABDOMEN: Soft, nontender, liver spleen not palpable, no masses palpable. PSYCH: Patient is able to answer simple questions MUSCULAR skeletal: Diffuse wasting of muscles, muscle muscle mass, prominent bones, osteoarthritis NEURO: Left-sided weakness INVESTIGATIONS, reviewed in the clinical context: Pro-calcitonin 0.11 WBC 13.9 hemoglobin 10.5 platelets 379 potassium 3.7 BUN 25 creatinine 0.40 Chest x-ray film personally reviewed by me-hyperinflation. Tubular heart. Possible bulla Assessment and plan: -Acute exacerbation of advanced prednisone dependent COPD in a previous smoker Ventolin HFA, Symbicort 160/4.5. Spiriva -Possible pneumonia IV Zosyn 3.375 g every 8. Changed to Levaquin -Acute UTI with cystitis from Enterococcus faecalis Complete course of Levaquin -Recent COVID 19 pneumonia. Treated with IV Remdesivir in his steroids -Subacute bilateral pulmonary embolism *Xarelto -Questionable lung mass and new pneumatocele Follow pulmonary -Acute on chronic hypoxic respiratory failure from COPD exacerbation: Better Currently on 2 L of nasal cannula -Moderate protein calorie malnutrition from decreased oral intake Food supplement -Left hemiparesis from prior stroke Patient non-ambulatory -Chronic medical debility -Essential hypertension Cozaar 25 mg daily -GERD Protonix 40 mg daily -muscular skeletal pain. Primary osteoarthritis Rhame 5/500 one tablet every 6 when necessary -DO NOT RESUSCITATE Disposition: [facility]/[place] Expected date of discharge: 11/09/20 Attending physician: Abdulkadir Rodriguez Consults: 11/03/20 05:44 Consult Physician Routine Consulting Provider: Treva Granados Consult Reason/Comments: pna Do you want consulting provider notified?: Yes Primary care physician: Jabari Granado Patient Condition at Discharge: Fair Plan - Discharge Summary Discharge Rx Participant: Yes New Discharge Prescriptions: New Levofloxacin [Levaquin] 500 mg PO Q24H #3 tab Rivaroxaban [Xarelto] 20 mg PO DAILY #1 tab Melatonin 3 mg PO HS PRN tablet PRN Reason: Insomnia Continue Budesonide-Formot 160-4.5 Mcg [Symbicort 160-4.5 Mcg Inhaler] 2 puff INHALATION RT-BID@0800,1700 Sodium Chloride [Saline Nasal Noble] 1 spray EA NOSTRIL Q2H PRN PRN Reason: Congestion Magnesium Hydroxide [Milk of Magnesia Concentrate] 7,200 mg PO DAILY PRN PRN Reason: Constipation Ipratropium-Albuterol Nebulize [Duoneb 0.5 mg-3 mg/3 ml Soln] 3 ml INHALATION RT-Q6H PRN PRN Reason: COVID Na Phos,M-B/Na Phos,Di-Ba [Fleet Adult] 133 ml RECTAL DAILY PRN PRN Reason: Constipation bisacodyL [Dulcolax] 10 mg RECTAL DAILY PRN PRN Reason: Constipation predniSONE 10 mg PO DAILY@0800 Acetaminophen Tab [Tylenol] 500 mg PO Q6HR PRN tab PRN Reason: Fever And/ Or Pain Loratadine [Claritin] 5 mg PO BID@0800,1700 ALPRAZolam [Xanax] 0.25 mg PO BID PRN #6 tab PRN Reason: ANXIETY, UNTIL 11/04/20 Lactose-Reduced Food [Ensure Plus] 120 ml PO TID@0800,1200,1700 Ipratropium-Albuterol Nebulize [Duoneb 0.5 mg-3 mg/3 ml Soln] 3 ml INHALATION RT-QID levETIRAcetam ORAL SOLN [Keppra Oral Soln] 500 mg PO BID@0800,2100 Pantoprazole [Protonix] 40 mg PO DAILY@0800 Losartan [Cozaar] 25 mg PO DAILY@0800 Cholecalciferol [Vitamin D3 (25 Mcg = 1000 Iu)] 100 mcg PO DAILY@1700 Ascorbic Acid [Vitamin C] 1,000 mg PO DAILY@1700 Menthol/Zinc Oxide [Calmoseptine Ointment] 1 applic TOPICAL BID Changed Lidocaine 5% Patch [Lidoderm 5% Patch] 1 patch TOPICAL DAILY@0800 #3 patch HYDROcodone/APAP 5-325MG [Rhame 5-325] 1 tab PO Q4H PRN #18 tab PRN Reason: Pain Discontinued fentaNYL 25MCG/HR PATCH [Duragesic 25MCG/HR] 1 patch TRANSDERM Q72H #1 patch Rivaroxaban [Xarelto] 15 mg PO BID@0800,1700 Zinc Sulfate [Orazinc] 220 mg PO DAILY@1700 Discharge Medication List Budesonide-Formot 160-4.5 Mcg [Symbicort 160-4.5 Mcg Inhaler] 2 puff INHALATION RT-BID@0800,1700 06/28/19 [History] Ipratropium-Albuterol Nebulize [Duoneb 0.5 mg-3 mg/3 ml Soln] 3 ml INHALATION RT-Q6H PRN 10/16/20 [History] Ipratropium-Albuterol Nebulize [Duoneb 0.5 mg-3 mg/3 ml Soln] 3 ml INHALATION RT-QID 10/16/20 [History] Lactose-Reduced Food [Ensure Plus] 120 ml PO TID@0800,1200,1700 10/16/20 [History] Losartan [Cozaar] 25 mg PO DAILY@0810/16/20 [History] Magnesium Hydroxide [Milk of Magnesia Concentrate] 7,200 mg PO DAILY PRN 10/16/20 [History] Na Phos,M-B/Na Phos,Di-Ba [Fleet Adult] 133 ml RECTAL DAILY PRN 10/16/20 [History] Pantoprazole [Protonix] 40 mg PO DAILY@0810/16/20 [History] Sodium Chloride [Saline Nasal [place]] 1 spray EA NOSTRIL Q2H PRN 10/16/20 [History] bisacodyL [Dulcolax] 10 mg RECTAL DAILY PRN 10/16/20 [History] levETIRAcetam ORAL SOLN [Keppra Oral Soln] 500 mg PO BID@0800,2100 10/16/20 [History] predniSONE 10 mg PO DAILY@0810/16/20 [History] Acetaminophen Tab [Tylenol] 500 mg PO Q6HR PRN tab 10/22/20 [Rx] Ascorbic Acid [Vitamin C] 1,000 mg PO DAILY@17011/03/20 [History] Cholecalciferol [Vitamin D3 (25 Mcg = 1000 Iu)] 100 mcg PO DAILY@169911/03/20 [History] Loratadine [Claritin] 5 mg PO BID@0800,1700 11/03/20 [History] Menthol/Zinc Oxide [Calmoseptine Ointment] 1 applic TOPICAL BID 11/03/20 [History] ALPRAZolam [Xanax] 0.25 mg PO BID PRN #6 tab 11/09/20 [Rx] HYDROcodone/APAP 5-325MG [Rhame 5-325] 1 tab PO Q4H PRN #18 tab 11/09/20 [Rx] Levofloxacin [Levaquin] 500 mg PO Q24H #3 tab 11/09/20 [Rx] Lidocaine 5% Patch [Lidoderm 5% Patch] 1 patch TOPICAL DAILY@0800 #3 patch 11/09/20 [Rx] Melatonin 3 mg PO HS PRN tablet 11/09/20 [Rx] Rivaroxaban [Xarelto] 20 mg PO DAILY #1 tab 11/09/20 [Rx] Follow up Appointment(s)/Referral(s): Jabari Granado DO [Primary Care Provider] - 1-2 days Dustin Corrales, [NON-STAFF] - As Needed
[2020-11-09 15:43] VITALS: BP 132/70; PULSE 99; TEMP 98.1
--- NOTE | 2020-11-10 15:32 | CDI ---
Documentation Clarification Form Date: 11/10/2020 03:21:10 PM From: Christophe Machado Phone: Admit Date: 11/03/2020 05:44:00 AM Patient Name: Chelsea Bland Visit Number: [id number] Discharge Date: 11/09/2020 05:25:00 PM ATTENTION: The Clinical Documentation Specialists (CDI) and [facility] Coding Staff appreciate your assistance in clarifying documentation. Please respond to the clarification below the line at the bottom and electronically sign. The CDI & [facility] Coding staff will review the response and follow-up if needed. Please note: Queries are made part of the Legal Health Record. If you have any questions, please contact the author of this message via ITS. Dr. Abdulkadir Rodriguez Possible or questionable pneumonia is documented in the discharge summary. Since it is questionable we need to know if it was ruled out. History/Risk Factors: Hx of COVID with COVID PNA, COPD exacerbation Clinical Indicators: X-ray: 11/03-bilateral PNA Treatment: Antibiotics IV Zosyn Please indicate which of the below is correct: [ ] Pneumonia ruled in POA [ ] Pneumonia ruled in not POA [ ] Pneumonia ruled out [ ] Other, please specify [ ] Unable to determine Pneumonia ruled in, POA MTDD
== END 2020-11-09 17:25 | DRG 190 ==
LOC: EC 04:12 → 4SSUR 05:44
PROVIDERS: ADMIT Hospitalist; ATTEND Hospitalist
DX: J43.9 Emphysema, unspecified (principal); J96.21 Acute and chronic respiratory failure with hypoxia; J18.9 Pneumonia, unspecified organism; G93.41 Metabolic encephalopathy; E44.0 Moderate protein-calorie malnutrition; M48.54XA Collapsed vertebra, not elsewhere classified, thoracic region, initial encounter for fracture; Z68.1 Body mass index [BMI] 19.9 or less, adult; I69.354 Hemiplegia and hemiparesis following cerebral infarction affecting left non-dominant side; R64 Cachexia; Z86.16 Personal history of COVID-19; Z87.01 Personal history of pneumonia (recurrent); Z86.711 Personal history of pulmonary embolism; M41.9 Scoliosis, unspecified; Z79.51 Long term (current) use of inhaled steroids; Z87.891 Personal history of nicotine dependence; Z86.14 Personal history of Methicillin resistant Staphylococcus aureus infection; Z82.49 Family history of ischemic heart disease and other diseases of the circulatory system; Z83.3 Family history of diabetes mellitus; Z80.52 Family history of malignant neoplasm of bladder; F41.9 Anxiety disorder, unspecified; I27.21 Secondary pulmonary arterial hypertension; K21.9 Gastro-esophageal reflux disease without esophagitis; F03.90 Unspecified dementia, unspecified severity, without behavioral disturbance, psychotic disturbance, mood disturbance, and anxiety; G40.909 Epilepsy, unspecified, not intractable, without status epilepticus; I10 Essential (primary) hypertension; Z79.01 Long term (current) use of anticoagulants; B95.2 Enterococcus as the cause of diseases classified elsewhere; M25.552 Pain in left hip; Z79.52 Long term (current) use of systemic steroids; N30.90 Cystitis, unspecified without hematuria; J98.4 Other disorders of lung; Z66 Do not resuscitate; G89.29 Other chronic pain; M19.91 Primary osteoarthritis, unspecified site; Z79.899 Other long term (current) drug therapy; Z86.19 Personal history of other infectious and parasitic diseases
CPT/HCPCS: 36415; 71045; 80048; 80053; 81001; 82550; 83605; 83615; 83690; 83735; 83880; 84100; 84145; 84484; 85025; 85610; 85730; 86140; 87040; 87077; 87086; 87186; 93005; 94640; 94668; 94760; 96374; 99285

== ENCOUNTER 2020-11-14 06:49 | Inpatient (IN) | payer MEDICARE, BC ==
[2020-11-14] MEDS ORDERED: SODIUM CHLORIDE 0.9% 1,000 ML IV STA (06:56)
[2020-11-14] MEDS ORDERED: ACETAMINOPHEN TAB 500 MG TAB PO STA (06:57)
[2020-11-14] MEDS ORDERED: MORPHINE SULFATE 2 MG/ML SYRINGE IVP ONE (07:37)
--- NOTE | 2020-11-14 07:37 | ED ---
General Adult HPI - General Chief complaint: Fever Stated complaint: Fever Time Seen by Provider: 11/14/20 07:00 Source: patient, EMS Mode of arrival: EMS - History of Present Illness Initial comments: Patient is a 80-year-old female with history of COPD, pneumonia, CVA, presenting to the emergency department from [facility] for fever, and acute onset of respiratory distress. She is normally on 2 L of home O2, she is requiring 5 L at this time to maintain O2 stat. Patient was recently admitted last month on 2 separate occasions for covid pneumonia, hypoxia. She is currently on Levaquin. According to staff at [facility], she was doing well yesterday, and then today developed a fever 102 and respirations distress. They did give breathing treatments at [facility] as well as in the EMS prior to arrival. She denies any chest pain, no abdominal pain, no nausea or vomiting. She is not given any Tylenol yet at this time. She denies any dysuria. She has no further complaint s at this time. Upon arrival to the ER, her temperature 102.7, pulse is 139, 90% on 5 L, blood pressure is 152/90. - Related Data Home Medications Medication Instructions Recorded Confirmed Budesonide-Formot 160-4.5 Mcg 2 puff INHALATION RT-BID@0800,1700 06/28/19 11/14/20 [Symbicort 160-4.5 Mcg Inhaler] Ipratropium-Albuterol Nebulize 3 ml INHALATION RT-Q6H PRN 10/16/20 11/14/20 [Duoneb 0.5 mg-3 mg/3 ml Soln] Ipratropium-Albuterol Nebulize 3 ml INHALATION RT-QID 10/16/20 11/14/20 [Duoneb 0.5 mg-3 mg/3 ml Soln] Lactose-Reduced Food [Ensure Plus] 120 ml PO TID@0800,1200,1700 10/16/20 11/14/20 Losartan [Cozaar] 25 mg PO DAILY@0800 10/16/20 11/14/20 Magnesium Hydroxide [Milk of 7,200 mg PO DAILY PRN 10/16/20 11/14/20 Magnesia Concentrate] Na Phos,M-B/Na Phos,Di-Ba [Fleet 133 ml RECTAL DAILY PRN 10/16/20 11/14/20 Adult] Pantoprazole [Protonix] 40 mg PO DAILY@0600 10/16/20 11/14/20 Sodium Chloride [Saline Nasal 1 spray EA NOSTRIL Q2H PRN 10/16/20 11/14/20 [place]] bisacodyL [Dulcolax] 10 mg RECTAL DAILY PRN 10/16/20 11/14/20 levETIRAcetam ORAL SOLN [Keppra 500 mg PO BID@0800,2100 10/16/20 11/14/20 Oral Soln] predniSONE 10 mg PO DAILY@0800 10/16/20 11/14/20 Ascorbic Acid [Vitamin C] 1,000 mg PO DAILY@1700 11/03/20 11/14/20 Cholecalciferol [Vitamin D3 (25 100 mcg PO DAILY@0 11/03/20 11/14/20 Mcg = 1000 Iu)] Loratadine [Claritin] 5 mg PO DAILY@0800 11/03/20 11/14/20 Menthol/Zinc Oxide [Calmoseptine 1 applic TOPICAL BID 11/03/20 11/14/20 Ointment] ALPRAZolam [Xanax] 0.25 mg PO BID PRN 11/14/20 11/14/20 HYDROcodone/APAP 5-325MG [[place] 1 tab PO DAILY PRN 11/14/20 11/14/20 5-325] HYDROcodone/APAP 5-325MG [[place] 1 tab PO Q6H 11/14/20 11/14/20 5-325] Rivaroxaban [Xarelto] 20 mg PO DAILY@1700 11/14/20 11/14/20 Previous Rx's Medication Instructions Recorded Acetaminophen Tab [Tylenol] 500 mg PO Q6HR PRN tab 10/22/20 Lidocaine 5% Patch [Lidoderm 5% 1 patch TOPICAL DAILY@0800 #3 patch 11/09/20 Patch] Melatonin 3 mg PO HS PRN tablet 11/09/20 Allergies Allergy/AdvReac Type Severity Reaction Status Date / Time aspirin AdvReac excessive Verified 11/14/20 07:55 brusing Review of Systems ROS Statement: Those systems with pertinent positive or pertinent negative responses have been documented in the HPI. ROS Other: All systems not noted in ROS Statement are negative. 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 History of Any Multi-Drug Resistant Organisms: MRSA Date of last positivie culture/infection: 07/24/19 MDRO Source:: MRSA SPUTUM Past Surgical History: Appendectomy, Tonsillectomy Additional Past Surgical History / Comment(s): Bilateral cataracts Past Anesthesia/Blood Transfusion Reactions: No Reported Reaction Past Psychological History: Anxiety Smoking Status: Former smoker Past Alcohol Use History: None Reported Past Drug Use History: None Reported - Past Family History Mother Family Medical History: Myocardial Infarction ([place]) Additional Family Medical History / Comment(s): Mother from a ruptur ed brain aneurysm, history of a heart attack Father Family Medical History: Diabetes Mellitus Additional Family Medical History / Comment(s): "heart problems" Father from bladder cancer , General Exam - General Exam Comments Initial Comments: GENERAL: Patient is nontoxic and in moderate distress. HEAD: Atraumatic, normocephalic. EYES: Pupils equal round and reactive to light, extraocular movements intact, sclera anicteric, conjunctiva are normal. Eyelids were unremarkable. ENT: TMs normal, nares patent, oropharynx clear without exudates. Dry mucous membranes. NECK: Normal range of motion, supple without lymphadenopathy or JVD. LUNGS: Mildy labored respirations., decreased sounds bilaterally, No wheezes rales or rhonchi. HEART: Tachycardic rate and rhythm without murmurs, rubs or gallops. ABDOMEN: Soft, nontender, normoactive bowel sounds. No guarding, no rebound. No masses appreciated. : Deferred MUSCULOSKELETAL: Normal extremities with adequate strength and normal range of motion, no pitting or edema. No clubbing or cyanosis. NEUROLOGICAL: Patient is alert and oriented x 3. Motor and sensory are also intact. Cranial nerves II through XII grossly intact. Symmetrical smile. Normal speech, normal gait. PSYCH: Normal mood, normal affect. SKIN: Warm, Dry, normal turgor, no rashes or lesions noted. Course Vital Signs 11/14/20 11/14/20 06:51 08:32 Temperature 102.7 F H 99.0 F Pulse Rate 139 H 101 H Respiratory 20 16 Rate Blood Pressure 152/90 116/70 O2 Sat by Pulse 90 L 98 Oximetry - Reevaluation(s) Reevaluation #1: 11/14/20 08:04 Labs show a 32,000 white count, chest x-ray returned showing right upper lobe pneumonia. This is likely the source of infection. Antibiotics including vancomycin and Zosyn were ordered, blood cultures are pending. Patient was also given 1.5 L fluid bolus. EKG Findings - EKG Comments: EKG Findings:: Sinus tach, possible left atrial enlargement, left axis deviation, nonspecific ST-T wave abnormality is, no signs of acute ST segment elevation. Symmetric previous on 11/03/2020. Ventricular rate 130, NM interval 118, QTC 298. Medical Decision Making - Medical Decision Making Patient is a 80-year-old female with history of COPD, normally on 2 L, presenting from [facility] for fever, tachycardia and respiratory distress that started this morning. Patient was discharged 6 days ago for similar scenario. Arrived febrile 102.7, tachycardia at 139, 90% on 5 L. Labs show a white count of 32.8, hemoglobin stable at 10.1, lactic acid is 2.1, sodium slightly low at 133, troponin is normal, BNP is 1600, rapid Covid is negative. Chest x-ray shows new right upper lobe pneumonia. EKG shows sinus tach. Patient was given a total of 1.5 L bolus, Tylenol upon arrival. Her heart rate did improve to 100, currently sating 98% on 5 L. Patient was started on Vanco and Zosyn. Patient will be admitted for sepsis, pneumonia, respiratory distress. Patient accepted by Dr. Escalante. Case discussed with Dr. Beltran. - Lab Data Result diagrams: 11/14/20 07:10 11/14/20 07:10 Lab Results 11/14/20 11/14/20 11/14/20 Range/Units 07:10 07:10 07:10 WBC 32.8 H (3.8-10.6) k/uL RBC 3.47 L (3.80-5.40) m/uL Hgb 10.1 L (11.4-16.0) gm/dL Hct 30.6 L (34.0-46.0) % MCV 88.1 (80.0-100.0) fL MCH 29.1 (25.0-35.0) pg MCHC 33.1 (31.0-37.0) g/dL RDW 15.8 H (11.5-15.5) % Plt Count 643 H (150-450) k/uL MPV 7.4 Neutrophils % (Manual) 84 % Band Neuts % (Manual) 1 % Lymphocytes % (Manual) 4 % Monocytes % (Manual) 6 % Eosinophils % (Manual) 5 % Metamyelocytes % 1 % Myelocytes % 1 % Neutrophils # (Manual) 27.80 H (1.3-7.7) k/uL Lymphocytes # (Manual) 1.31 (1.0-4.8) k/uL Monocytes # (Manual) 1.97 H (0-1.0) k/uL Eosinophils # (Manual) 1.64 H (0-0.7) k/uL Metamyelocytes # (Man) 0.33 H (0) k/uL Myelocytes # (Manual) 0.33 H (0) k/uL Nucleated RBCs 0 (0-0) /100 WBC Manual Slide Review Performed RBC Morphology Normal PT 11.4 (9.0-12.0) sec INR 1.1 (<1.2) APTT 23.0 (22.0-30.0) sec Sodium 133 L (137-145) mmol/L Potassium 4.5 (3.5-5.1) mmol/L Chloride 95 L (98-107) mmol/L Carbon Dioxide 31 H (22-30) mmol/L Anion Gap 7 mmol/L BUN 13 (7-17) mg/dL Creatinine 0.30 L (0.52-1.04) mg/dL Est GFR (CKD-EPI)AfAm >90 (>60 ml/min/1.73 sqM) Est GFR (CKD-EPI)NonAf >90 (>60 ml/min/1.73 sqM) Glucose 93 (74-99) mg/dL Plasma Lactic Acid Andres (0.7-2.0) mmol/L Calcium 9.6 (8.4-10.2) mg/dL Magnesium 1.5 L (1.6-2.3) mg/dL Total Bilirubin 1.1 (0.2-1.3) mg/dL AST 39 H (14-36) U/L ALT 72 H (4-34) U/L Alkaline Phosphatase 272 H (38-126) U/L Creatine Kinase <20 L (30-135) U/L Troponin I (0.000-0.034) ng/mL NT-Pro-B Natriuret Pep pg/mL Total Protein 6.0 L (6.3-8.2) g/dL Albumin 2.6 L (3.5-5.0) g/dL Coronavirus (PCR) (Not Detectd) 11/14/20 11/14/20 11/14/20 Range/Units 07:10 07:10 07:10 WBC (3.8-10.6) k/uL RBC (3.80-5.40) m/uL Hgb (11.4-16.0) gm/dL Hct (34.0-46.0) % MCV (80.0-100.0) fL MCH (25.0-35.0) pg MCHC (31.0-37.0) g/dL RDW (11.5-15.5) % Plt Count (150-450) k/uL MPV Neutrophils % (Manual) % Band Neuts % (Manual) % Lymphocytes % (Manual) % Monocytes % (Manual) % Eosinophils % (Manual) % Metamyelocytes % % Myelocytes % % Neutrophils # (Manual) (1.3-7.7) k/uL Lymphocytes # (Manual) (1.0-4.8) k/uL Monocytes # (Manual) (0-1.0) k/uL Eosinophils # (Manual) (0-0.7) k/uL Metamyelocytes # (Man) (0) k/uL Myelocytes # (Manual) (0) k/uL Nucleated RBCs (0-0) /100 WBC Manual Slide Review RBC Morphology PT (9.0-12.0) sec INR (<1.2) APTT (22.0-30.0) sec Sodium (137-145) mmol/L Potassium (3.5-5.1) mmol/L Chloride (98-107) mmol/L Carbon Dioxide (22-30) mmol/L Anion Gap mmol/L BUN (7-17) mg/dL Creatinine (0.52-1.04) mg/dL Est GFR (CKD-EPI)AfAm (>60 ml/min/1.73 sqM) Est GFR (CKD-EPI)NonAf (>60 ml/min/1.73 sqM) Glucose (74-99) mg/dL Plasma Lactic Acid Andres 2.1 H* (0.7-2.0) mmol/L Calcium (8.4-10.2) mg/dL Magnesium (1.6-2.3) mg/dL Total Bilirubin (0.2-1.3) mg/dL AST (14-36) U/L ALT (4-34) U/L Alkaline Phosphatase (38-126) U/L Creatine Kinase (30-135) U/L Troponin I <0.012 (0.000-0.034) ng/mL NT-Pro-B Natriuret Pep 1610 pg/mL Total Protein (6.3-8.2) g/dL Albumin (3.5-5.0) g/dL Coronavirus (PCR) (Not Detectd) 11/14/20 Range/Units 07:10 WBC (3.8-10.6) k/uL RBC (3.80-5.40) m/uL Hgb (11.4-16.0) gm/dL Hct (34.0-46.0) % MCV (80.0-100.0) fL MCH (25.0-35.0) pg MCHC (31.0-37.0) g/dL RDW (11.5-15.5) % Plt Count (150-450) k/uL MPV Neutrophils % (Manual) % Band Neuts % (Manual) % Lymphocytes % (Manual) % Monocytes % (Manual) % Eosinophils % (Manual) % Metamyelocytes % % Myelocytes % % Neutrophils # (Manual) (1.3-7.7) k/uL Lymphocytes # (Manual) (1.0-4.8) k/uL Monocytes # (Manual) (0-1.0) k/uL Eosinophils # (Manual) (0-0.7) k/uL Metamyelocytes # (Man) (0) k/uL Myelocytes # (Manual) (0) k/uL Nucleated RBCs (0-0) /100 WBC Manual Slide Review RBC Morphology PT (9.0-12.0) sec INR (<1.2) APTT (22.0-30.0) sec Sodium (137-145) mmol/L Potassium (3.5-5.1) mmol/L Chloride (98-107) mmol/L Carbon Dioxide (22-30) mmol/L Anion Gap mmol/L BUN (7-17) mg/dL Creatinine (0.52-1.04) mg/dL Est GFR (CKD-EPI)AfAm (>60 ml/min/1.73 sqM) Est GFR (CKD-EPI)NonAf (>60 ml/min/1.73 sqM) Glucose (74-99) mg/dL Plasma Lactic Acid Andres (0.7-2.0) mmol/L Calcium (8.4-10.2) mg/dL Magnesium (1.6-2.3) mg/dL Total Bilirubin (0.2-1.3) mg/dL AST (14-36) U/L ALT (4-34) U/L Alkaline Phosphatase (38-126) U/L Creatine Kinase (30-135) U/L Troponin I (0.000-0.034) ng/mL NT-Pro-B Natriuret Pep pg/mL Total Protein (6.3-8.2) g/dL Albumin (3.5-5.0) g/dL Coronavirus (PCR) Not Detected (Not Detectd) Disposition Clinical Impression: Sepsis, Pneumonia, Hypoxemia Disposition: ADMITTED IP TO THIS HOSP Condition: Fair Referrals: Jabari Granado DO [Primary Care Provider] - 1-2 days Decision Date: 11/14/20 Decision Time: 08:32
[2020-11-14 07:46] LABS: HCT 30.6 % (34.0-46.0); HGB 10.1 gm/dL (11.4-16.0); MCH 29.1 pg (25.0-35.0); MCHC 33.1 g/dL (31.0-37.0); MCV 88.1 fL (80.0-100.0); Mean Platelet Volume 7.4; Platelet Count 643 k/uL (150-450); RBC 3.47 m/uL (3.80-5.40); RDW 15.8 % (11.5-15.5); WBC 32.8 k/uL (3.8-10.6)
[2020-11-14 07:52] LABS: INR 1.1 (<1.2); Prothrombin Time 11.4 sec (9.0-12.0)
[2020-11-14] MEDS ORDERED: PIPERACILLIN-TAZOBACTAM 3.375 GM in SODIUM CHLORIDE 0.9% 100 ML IVPB STA (07:54)
[2020-11-14] MEDS ORDERED: VANCOMYCIN IV PER PHARMACY 1 EACH MISC MISCELLANE PRN (07:54)
[2020-11-14 07:55] LABS: ALT 72 U/L (4-34); AST 39 U/L (14-36); African American GFR (CKD) >90 (>60 ml/min/1.73 sqM); Albumin 2.6 g/dL (3.5-5.0); Alkaline Phosphatase 272 U/L (38-126); Anion Gap 7 mmol/L; Blood Urea Nitrogen 13 mg/dL (7-17); Calcium 9.6 mg/dL (8.4-10.2); Carbon Dioxide 31 mmol/L (22-30); Chloride 95 mmol/L (98-107); Creatine Kinase <20 U/L (30-135); Glucose 93 mg/dL (74-99); Magnesium 1.5 mg/dL (1.6-2.3); Non-African American GFR(CKD) >90 (>60 ml/min/1.73 sqM); Potassium 4.5 mmol/L (3.5-5.1); Sodium 133 mmol/L (137-145); Total Bilirubin 1.1 mg/dL (0.2-1.3)
[2020-11-14] MEDS ORDERED: VANCOMYCIN 1,250 MG in SODIUM CHLORIDE 0.9% 250 ML IVPB STA (08:01)
--- NOTE | 2020-11-14 08:01 | XR ---
EXAMINATION TYPE: XR chest 2V DATE OF EXAM: 11/14/2020 COMPARISON: Chest radiograph November 06, 2020. Chest CT October 18, 2020 HISTORY: Difficulty breathing TECHNIQUE: Frontal and lateral views of the chest are obtained. FINDINGS: Cardiomediastinal silhouette and pulmonary vasculature are within normal limits. Emphysematous lungs. There is new patchy airspace opacity upper lobe. Blunting of the costophrenic an gles. Exaggeration of thoracic kyphosis. IMPRESSION: Emphysematous lungs with new, right upper lobe pneumonia in the appropriate clinical set ting. Small left and tiny right effusions.
[2020-11-14] MEDS ORDERED: SODIUM CHLORIDE 0.9% 500 ML 500 ML IV STA (08:07)
[2020-11-14 08:15] LABS: Band Neutrophils % 1 %; Eosinophils # (M) 1.64 k/uL (0-0.7); Lymphocytes # (M) 1.31 k/uL (1.0-4.8); Metamyelocytes # (M) 0.33 k/uL (0); Metamyelocytes % 1 %; Monocytes # (M) 1.97 k/uL (0-1.0); Myelocytes # (M) 0.33 k/uL (0); Myelocytes % 1 %; Neutrophils % (M) 84 %; Nucleated Red Blood Cells 0 /100 WBC (0-0); Total Cells Counted 200
[2020-11-14] MEDS ORDERED: ALBUTEROL NEBULIZED 2.5 MG/3 ML INHALATION PRN (08:24)
[2020-11-14] MEDS ORDERED: PNEUMONIA PROTOCOL UTILIZED 1 EACH MISC PO PRN (08:24)
[2020-11-14] MEDS ORDERED: AZITHROMYCIN 500 MG in SODIUM CHLORIDE 0.9% 250 ML IVPB SCH ×2 (09:00→16:00)
[2020-11-14] MEDS ORDERED: MELATONIN 3 MG TABLET PO PRN (15:07)
[2020-11-14] MEDS ORDERED: MAGNESIUM HYDROXIDE 2,400 MG/10 ML CUP PO PRN (15:07)
[2020-11-14] MEDS ORDERED: IPRATROPIUM-ALBUTEROL 3 ML NEB INHALATION PRN (15:07)
[2020-11-14] MEDS ORDERED: bisacodyL 10 MG SUPP RECTAL PRN (15:07)
[2020-11-14] MEDS ORDERED: HYDROcodone/APAP 5-325MG 1 EACH TAB PO PRN (15:07)
[2020-11-14] MEDS: SODIUM CHLORIDE 0.9% 1,000 ML IV SCH ×3 (15:28→23:16)
[2020-11-14] MEDS: HYDROcodone/APAP 5-325MG 1 EACH TAB PO SCH ×2 (15:29→23:14)
[2020-11-14 16:43] LABS: Appearance,Urine Clear (Clear); Bilirubin,Urine Negative (Negative); Blood,Urine Negative (Negative); Color,Urine Yellow; Glucose,Urine (UA) Negative (Negative); Ketones,Urine Negative (Negative); Leukocyte Esterase,Urine Negative (Negative); Nitrite,Urine Negative (Negative); Protein,Urine Trace (Negative); Specific Gravity,Urine 1.018 (1.001-1.035); Urobilinogen,Urine <2.0 mg/dL (<2.0)
[2020-11-14] MEDS: PIPERACILLIN-TAZOBACTAM 3.375 GM in SODIUM CHLORIDE 0.9% 100 ML IVPB SCH ×2 (16:55→23:34)
[2020-11-14] MEDS: CHOLECALCIFEROL 25 MCG (1000 IU) TABLET PO SCH (16:55)
[2020-11-14] MEDS: ASCORBIC ACID 500 MG TAB PO SCH (16:55)
[2020-11-14] MEDS: RIVAROXABAN 20 MG TAB PO SCH (16:59)
[2020-11-14] MEDS ORDERED: NON FORMULARY DRUG (Lactose-Reduced Food [Ensure Plus] 237 ML Liquid) PO SCH (17:00)
[2020-11-14] MEDS: IPRATROPIUM-ALBUTEROL 3 ML NEB INHALATION SCH ×2 (17:02→19:51)
--- NOTE | 2020-11-14 18:26 | P.HPIM ---
History of Present Illness H&P Date: 11/14/20 Chief Complaint: Fever 80-year-old female with history of COPD, pneumonia, CVA, presenting to the emergency department from [facility] for fever, and acute onset of respiratory d istress. She is normally on 2 L of home O2, she is requiring 5 L at this time to maintain O2 stat. Patient was recently admitted last month on 2 separate occasions for covid pneumonia, hypoxia. She is currently on Levaquin. According to staff at [facility], she was doing well yesterday, and then today developed a fever 102 and respirations distress. They did give breathing treatments at [facility] as well as in the EMS prior to arrival. She denies any chest pain, no abdominal pain, no nausea or vomiting. She is not given any Tylenol yet at this time. She denies any dysuria. She has no further complaints at this time. Upon arrival to the ER, her temperature 102.7, pulse is 139, 90% on 5 L, blood pressure is 152/90. EKG shows sinus tachycardia with nonspecific ST and T wave changes Lab review shows a WBC of 32.8, hemoglobin 10.1, lactic acid of 2.1, sodium 133, troponin is normal, BNP of 1600, rapid Covid is negative Chest x-ray shows right upper lobe pneumonia Review of Systems REVIEW OF SYSTEMS: CONSTITUTIONAL: No fever, no malaise, no fatigue. HEENT: No recent visual problems or hearing problems. Denied any sore throat. CARDIOVASCULAR: No chest pain, orthopnea, PND, no palpitations, no syncope. PULMONARY: No shortness of breath, no cough, no hemoptysis. GASTROINTESTINAL: No diarrhea, no nausea, no vomiting, no abdominal pain. NEUROLOGICAL: No headaches, no weakness, no numbness. HEMATOLOGICAL: Denies any bleeding or petechiae. GENITOURINARY: Denies any burning micturition, frequency, or urgency. MUSCULOSKELETAL/RHEUMATOLOGICAL: Denies any joint pain, swelling, or any muscle pain. ENDOCRINE: Denies any polyuria or polydipsia. The rest of the 14-point review of systems is negative. Past Medical History Past Medical History: COPD, CVA/TIA, Pneumonia, Respiratory Disorder Additional Past Medical History / Comment(s): cataracts(sx done), "bruises easily-thin fragile skin", lower dental bridge, CVA September, Covid 10/2020 History of Any Multi-Drug Resistant Organisms: MRSA Date of last positivie culture/infection: 07/24/19 MDRO Source:: MRSA SPUTUM Past Surgical History: Appendectomy, Tonsillectomy Additional Past Surgical History / Comment(s): Bilateral cataracts Past Anesthesia/Blood Transfusion Reactions: No Reported Reaction Past Psychological History: Anxiety Smoking Status: Former smoker Past Alcohol Use History: None Reported Additional Past Alcohol Use History / Comment(s): started smoking age 16 smoked 1 ppd Past Drug Use History: None Reported - Past Family History Mother Family Medical History: Myocardial Infarction ([place]) Additional Family Medical History / Comment(s): Mother from a ruptured brain aneurysm, history of a heart attack Father Family Medical History: Diabetes Mellitus Additional Family Medical History / Comment(s): "heart problems" Father from bladder cancer , Medications and Allergies Home Medications Medication Instructions Recorded Confirmed Type Budesonide-Formot 160-4.5 Mcg 2 puff INHALATION RT-BID@0800,1700 06/28/19 11/14/20 History [Symbicort 160-4.5 Mcg Inhaler] Ipratropium-Albuterol Nebulize 3 ml INHALATION RT-Q6H PRN 10/16/20 11/14/20 History [Duoneb 0.5 mg-3 mg/3 ml Soln] Ipratropium-Albuterol Nebulize 3 ml INHALATION RT-QID 10/16/20 11/14/20 History [Duoneb 0.5 mg-3 mg/3 ml Soln] Lactose-Reduced Food [Ensure Plus] 120 ml PO TID@0800,1200,1700 10/16/20 11/14/20 History Losartan [Cozaar] 25 mg PO DAILY@0800 10/16/20 11/14/20 History Magnesium Hydroxide [Milk of 7,200 mg PO DAILY PRN 10/16/20 11/14/20 History Magnesia Concentrate] Na Phos,M-B/Na Phos,Di-Ba [Fleet 133 ml RECTAL DAILY PRN 10/16/20 11/14/20 History Adult] Pantoprazole [Protonix] 40 mg PO DAILY@0600 10/16/20 11/14/20 History Sodium Chloride [Saline Nasal 1 spray EA NOSTRIL Q2H PRN 10/16/20 11/14/20 History [place]] bisacodyL [Dulcolax] 10 mg RECTAL DAILY PRN 10/16/20 11/14/20 History levETIRAcetam ORAL SOLN [Keppra 500 mg PO BID@0800,2100 10/16/20 11/14/20 History Oral Soln] predniSONE 10 mg PO DAILY@0800 10/16/20 11/14/20 History Acetaminophen Tab [Tylenol] 500 mg PO Q6HR PRN tab 10/22/20 11/14/20 Rx Ascorbic Acid [Vitamin C] 1,000 mg PO DAILY@1700 11/03/20 11/14/20 History Cholecalciferol [Vitamin D3 (25 100 mcg PO DAILY@1700 11/03/20 11/14/20 History Mcg = 1000 Iu)] Loratadine [Claritin] 5 mg PO DAILY@0800 11/03/20 11/14/20 History Menthol/Zinc Oxide [Calmoseptine 1 applic TOPICAL BID 11/03/20 11/14/20 History Ointment] Lidocaine 5% Patch [Lidoderm 5% 1 patch TOPICAL DAILY@0800 #3 patch 11/09/20 11/14/20 Rx Patch] Melatonin 3 mg PO HS PRN tablet 11/09/20 11/14/20 Rx ALPRAZolam [Xanax] 0.25 mg PO BID PRN 11/14/20 11/14/20 History HYDROcodone/APAP 5-325MG [[place] 1 tab PO DAILY PRN 11/14/20 11/14/20 History 5-325] HYDROcodone/APAP 5-325MG [[place] 1 tab PO Q6H 11/14/20 11/14/20 History 5-325] Rivaroxaban [Xarelto] 20 mg PO DAILY@1700 11/14/20 11/14/20 History Allergies Allergy/AdvReac Type Severity Reaction Status Date / Time aspirin AdvReac excessive Verified 11/14/20 07:55 brusing Physical Exam Vitals: Vital Signs Temp Pulse Pulse Resp BP BP Pulse Ox 11/14/20 10:00 98.4 F 94 16 124/65 98 11/14/20 08:32 99.0 F 101 H 16 116/70 98 11/14/20 06:51 102.7 F H 139 H 20 152/90 90 L Intake and Output 11/13/20 11/14/20 11/14/20 22:59 06:59 14:59 Other: Weight 48.081 kg 48.081 kg - Constitutional General appearance: Present: average body habitus, cooperative, no acute distress - EENT Eyes: Present: anicteric sclerae, EOMI, PERRLA, normal appearance ENT: Present: hearing grossly normal, normal oropharynx Ears: bilateral: normal - Neck Neck: Present: normal ROM. Absent: lymphadenopathy, rigidity, thyromegaly Carotids: negative: bruit present Thyroid: bilateral: normal size, negative: enlarged, nodule - Respiratory Respiratory: bilateral: CTA, negative: rales, rhonchi, wheezing - Cardiovascular Rhythm: regular Heart sounds: normal: S1, S2 Abnormal Heart Sounds: Absent: systolic murmur, diastolic murmur - Gastrointestinal General gastrointestinal: Present: normal bowel sounds, soft. Absent: distended, organomegaly, tenderness - Genitourinary Genitourinary Comment(s): deferred - Integumentary Integumentary: Present: normal turgor. Absent: jaundiced, rash, ulcer - Neurologic Neurologic: Present: CNII-XII intact. Absent: focal deficits - Musculoskeletal Musculoskeletal: Present: gait normal, strength equal bilaterally - Psychiatric Psychiatric: Present: A&O x's 3, appropriate affect, intact judgment & insight Results CBC & Chem 7: 11/14/20 07:10 11/14/20 07:10 Labs: Abnormal Lab Results - Last 24 Hours (Table) 11/14/20 11/14/20 11/14/20 Range/Units 07:10 07:10 07:10 WBC 32.8 H (3.8-10.6) k/uL RBC 3.47 L (3.80-5.40) m/uL Hgb 10.1 L (11.4-16.0) gm/dL Hct 30.6 L (34.0-46.0) % RDW 15.8 H (11.5-15.5) % Plt Count 643 H (150-450) k/uL Neutrophils # (Manual) 27.80 H (1.3-7.7) k/uL Monocytes # (Manual) 1.97 H (0-1.0) k/uL Eosinophils # (Manual) 1.64 H (0-0.7) k/uL Metamyelocytes # (Man) 0.33 H (0) k/uL Myelocytes # (Manual) 0.33 H (0) k/uL Sodium 133 L (137-145) mmol/L Chloride 95 L (98-107) mmol/L Carbon Dioxide 31 H (22-30) mmol/L Creatinine 0.30 L (0.52-1.04) mg/dL Plasma Lactic Acid Andres 2.1 H* (0.7-2.0) mmol/L Magnesium 1.5 L (1.6-2.3) mg/dL AST 39 H (14-36) U/L ALT 72 H (4-34) U/L Alkaline Phosphatase 272 H (38-126) U/L Creatine Kinase <20 L (30-135) U/L Total Protein 6.0 L (6.3-8.2) g/dL Albumin 2.6 L (3.5-5.0) g/dL 11/14/20 Range/Units 10:28 WBC (3.8-10.6) k/uL RBC (3.80-5.40) m/uL Hgb (11.4-16.0) gm/dL Hct (34.0-46.0) % RDW (11.5-15.5) % Plt Count (150-450) k/uL Neutrophils # (Manual) (1.3-7.7) k/uL Monocytes # (Manual) (0-1.0) k/uL Eosinophils # (Manual) (0-0.7) k/uL Metamyelocytes # (Man) (0) k/uL Myelocytes # (Manual) (0) k/uL Sodium (137-145) mmol/L Chloride (98-107) mmol/L Carbon Dioxide (22-30) mmol/L Creatinine (0.52-1.04) mg/dL Plasma Lactic Acid Andres 0.6 L (0.7-2.0) mmol/L Magnesium (1.6-2.3) mg/dL AST (14-36) U/L ALT (4-34) U/L Alkaline Phosphatase (38-126) U/L Creatine Kinase (30-135) U/L Total Protein (6.3-8.2) g/dL Albumin (3.5-5.0) g/dL Thrombosis Risk Factor Assmnt - Choose All That Apply Any of the Below Risk Factors Present?: Yes Each Factor Represents 1 point: Abnormal pulmonary function (COPD), Medical pt on bed rest Other Risk Factors: Yes Each Risk Factor Represents 3 Points: Age 75 years or older Other congenital or acquired thrombophilia - If yes, enter type in comment: No Thrombosis Risk Factor Assessment Total Risk Factor Score: 5 Thrombosis Risk Factor Assessment Level: High Risk Assessment and Plan Assessment: 1. Right upper lobe pneumonia; HCAP; patient has been placed on IV Zosyn and vancomycin; blood culture and sputum culture ordered and pending; we will monitor CBC, CRP and pro-calcitonin; ID consulted and recommendations are pending 2. Sepsis; secondary to 1; as evidenced by elevated white blood count, lactic acid level, tachycardia and hypoxia 3. Acute exacerbation COPD; continue with home inhaler therapy; we will add DuoNeb nebulizer treatments; and IV Solu-Medrol 4. Hypertension; continue home dose of losartan 25 mg daily 5. Seizure disorder; Keppra 500 mg twice a day 6. History of CVA; patient remains on anticoagulation with Xarelto DVT prophylaxis; SCDs/systemic anticoagulation CODE STATUS; full code
[2020-11-14] MEDS: SYMBICORT 160-4.5 MCG INHALER INHALATION SCH (19:51)
[2020-11-14] MEDS ORDERED: VANCOMYCIN 750 MG in SODIUM CHLORIDE 0.9% 250 ML IVPB SCH (23:00)
[2020-11-14] MEDS ORDERED: Magnesium Replacement Protocol 1 EACH MISC MISCELLANE PRN (23:02)
[2020-11-14] MEDS: levETIRAcetam ORAL SOLN 500 MG/5 ML CUP PO SCH (23:34)
--- NOTE | 2020-11-14 23:45 | P.CONS ---
History of Present Illness - Reason for Consult Consult date: 11/14/20 pneumonia Requesting physician: Vinicius Cantu - Chief Complaint fever and shortness of breath x 1 day - History of Present Illness History of present illness : Patient is a 80-year female with a past medical he significant for COPD pneumonia CVA patient was brought into the ER at [facility] this morning from the nurse for evaluation of fever and acute onset of respiratory distress patient was recently admitted to this facility and was treated for Covid pneumonia patient did have fever 122.1 height acute respiratory distress she was given breathing treatment and subsequently was brought to the hospital on arrival to the ER the patient did have fever to 102.7 F patient did have white count of 32.80 creatinine was normal lactic acid was elevated liver enzymes are mildly elevated urine was negative rao PCR was negative, patient did have a chest x-ray emphysematous lungs review: Right upper lobe pneumonia patient is currently being treated with Zithromax and Zosyn infectious disease was consulted for further management of antibiotic therapy, when asked specifically the patient patient patient not sure what brought her to the hospital he is complaining of a congested cough which is moderate intensity and is bringing up some sputum patient denies having any nausea no vomiting no choking on the food no abdominal pain or diarrhea Review of system: CONSTITUTIONAL: Positive for weakness along with the fever. EYES: No complaint. ENT: No complaint. RESPIRATORY: As per history of present illness CARDIOVASCULAR: No complaint. GENITOURINARY: No complaint. GASTROINTESTINAL: No complaint. MUSCULOSKELETAL: No complaint. INTEGUMENTARY: No complaint. PSYCHOLOGIC: No complaint. ENDOCRINE: No complaint. NEUROLOGIC: As per history of present illness Past medical history : Reviewed, documented below Past surgical history : Reviewed, documented below Social history: Reviewed, documented below Medications: Reviewed, as documented below EXAMINATION: Vital sigans= Reviewed and documented below GENERAL DESCRIPTION: Elderly female lying in bed, no distress. No tachypnea or accessory muscle of respiration use. HEENT: Shows Pallor , no scleral icterus. Oral mucous membrane is dry. NECK: Trachea central, no thyromegaly. LUNGS: Unlabored breathing. Decreased breath sound at the base. No wheeze or crackle. HEART: S1, S2, regular rate and rhythm. ABDOMEN: Soft, no tenderness , guarding or rigidity EXTREMITIES: No edema of feet. SKIN: No rash, no masses palpable. NEUROLOGICAL: The patient is awake, alert, oriented x2, mood and affect normal. LABS AND RADIOLOGY: Reviewed results see below Assessment : Patient presented to hospital with sepsis in this patient who did have a fever elevated white count with new right upper lobe infiltrate likely secondary to pneumonia likely aspiration etiology and will need to cover for the resistant gram-negative likely pathogen in this patient with recent admission to hospital for wound in a long-term resident Plan: 1-Zosyn 3.375 g every 8hr to continue 2-discontinue Zithromax and vancomycin to decrease risk of nephrotoxicity 3-aspiration precaution We will follow on clinical condition and cultures to further adjust medication if needed Thank you for this consultation we will follow the patient along with you Past Medical History Past Medical History: COPD, CVA/TIA, Pneumonia, Respiratory Disorder Additional Past Medical History / Comment(s): cataracts(sx done), "bruises easily-thin fragile skin", lower dental bridge, CVA September, Covid 10/2020 History of Any Multi-Drug Resistant Organisms: MRSA Year Discovered:: 07/24/19 MDRO Source:: MRSA SPUTUM Past Surgical History: Appendectomy, Tonsillectomy Additional Past Surgical History / Comment(s): Bilateral cataracts Past Anesthesia/Blood Transfusion Reactions: No Reported Reaction Past Psychological History: Anxiety Smoking Status: Former smoker Past Alcohol Use History: None Reported Additional Past Alcohol Use History / Comment(s): started smoking age 16 smoked 1 ppd Past Drug Use History: None Reported - Past Family History Mother Family Medical History: Myocardial Infarction ([place]) Additional Family Medical History / Comment(s): Mother from a ruptured brain aneurysm, history of a heart attack Father Family Medical History: Diabetes Mellitus Additional Family Medical History / Comment(s): "heart problems" Father from bladder cancer , Medications and Allergies Home Medications Medication Instructions Recorded Confirmed Type Budesonide-Formot 160-4.5 Mcg 2 puff INHALATION RT-BID@0800,1700 06/28/19 11/14/20 History [Symbicort 160-4.5 Mcg Inhaler] Ipratropium-Albuterol Nebulize 3 ml INHALATION RT-Q6H PRN 10/16/20 11/14/20 Hist ory [Duoneb 0.5 mg-3 mg/3 ml Soln] Ipratropium-Albuterol Nebulize 3 ml INHALATION RT-QID 10/16/20 11/14/20 History [Duoneb 0.5 mg-3 mg/3 ml Soln] Lactose-Reduced Food [Ensure Plus] 120 ml PO TID@0800,1200,1700 10/16/20 11/14/20 History Losartan [Cozaar] 25 mg PO DAILY@0800 10/16/20 11/14/20 History Magnesium Hydroxide [Milk of 7,200 mg PO DAILY PRN 10/16/20 11/14/20 History Magnesia Concentrate] Na Phos,M-B/Na Phos,Di-Ba [Fleet 133 ml RECTAL DAILY PRN 10/16/20 11/14/20 H istory Adult] Pantoprazole [Protonix] 40 mg PO DAILY@0600 10/16/20 11/14/20 History Sodium Chloride [Saline Nasal 1 spray EA NOSTRIL Q2H PRN 10/16/20 11/14/20 History [place]] bisacodyL [Dulcolax] 10 mg RECTAL DAILY PRN 10/16/20 11/14/20 History levETIRAcetam ORAL SOLN [Keppra 500 mg PO BID@0800,2100 10/16/20 11/14/20 History Oral Soln] predniSONE 10 mg PO DAILY@0800 10/16/20 11/14/20 History Acetaminophen Tab [Tylenol] 500 mg PO Q6HR PRN tab 10/22/20 11/14/20 Rx Ascorbic Acid [Vitamin C] 1,000 mg PO DAILY@1700 11/03/20 11/14/20 History Cholecalciferol [Vitamin D3 (25 100 mcg PO DAILY@1700 11/03/20 11/14/20 History Mcg = 1000 Iu)] Loratadine [Claritin] 5 mg PO DAILY@0800 11/03/20 11/14/20 History Menthol/Zinc Oxide [Calmoseptine 1 applic TOPICAL BID 11/03/20 11/14/20 History Ointment] Lidocaine 5% Patch [Lidoderm 5% 1 patch TOPICAL DAILY@0800 #3 patch 11/09/20 11/14/20 Rx Patch] Melatonin 3 mg PO HS PRN tablet 11/09/20 11/14/20 Rx ALPRAZolam [Xanax] 0.25 mg PO BID PRN 11/14/20 11/14/20 History HYDROcodone/APAP 5-325MG [[place] 1 tab PO DAILY PRN 11/14/20 11/14/20 History 5-325] HYDROcodone/APAP 5-325MG [[place] 1 tab PO Q6H 11/14/20 11/14/20 History 5-325] Rivaroxaban [Xarelto] 20 mg PO DAILY@1700 11/14/20 11/14/20 History Allergies Allergy/AdvReac Type Severity Reaction Status Date / Time aspirin AdvReac excessive Verified 11/14/20 07:55 brusing Physical Exam Vitals: Vital Signs Temp Pulse Pulse Resp BP BP Pulse Ox 11/14/20 17:54 97.9 F 86 18 110/62 94 L 11/14/20 17:15 76 11/14/20 17:02 76 11/14/20 14:00 98.0 F 85 16 129/69 97 11/14/20 10:00 98.4 F 94 16 124/65 98 11/14/20 08:32 99.0 F 101 H 16 116/70 98 11/14/20 06:51 102.7 F H 139 H 20 152/90 90 L Intake and Output 11/14/20 11/14/20 11/14/20 06:59 14:59 22:59 Output Total 1050 Balance -1050 Output: Urine 1050 Straight 400 Other: Voiding Method Bedpan Diaper # Voids 2 3 # Bowel Movements 4 5 Weight 48.081 kg 48.081 kg Results CBC & Chem 7: 11/14/20 07:10 11/14/20 07:10 Labs: Abnormal Lab Results - Last 24 Hours (Table) 11/14/20 11/14/20 11/14/20 Range/Units 07:10 07:10 07:10 WBC 32.8 H (3.8-10.6) k/uL RBC 3.47 L (3.80-5.40) m/uL Hgb 10.1 L (11.4-16.0) gm/dL Hct 30.6 L (34.0-46.0) % RDW 15.8 H (11.5-15.5) % Plt Count 643 H (150-450) k/uL Neutrophils # (Manual) 27.80 H (1.3-7.7) k/uL Monocytes # (Manual) 1.97 H (0-1.0) k/uL Eosinophils # (Manual) 1.64 H (0-0.7) k/uL Metamyelocytes # (Man) 0.33 H (0) k/uL Myelocytes # (Manual) 0.33 H (0) k/uL Sodium 133 L (137-145) mmol/L Chloride 95 L (98-107) mmol/L Carbon Dioxide 31 H (22-30) mmol/L Creatinine 0.30 L (0.52-1.04) mg/dL Plasma Lactic Acid Andres 2.1 H* (0.7-2.0) mmol/L Magnesium 1.5 L (1.6-2.3) mg/dL AST 39 H (14-36) U/L ALT 72 H (4-34) U/L Alkaline Phosphatase 272 H (38-126) U/L Creatine Kinase <20 L (30-135) U/L Total Protein 6.0 L (6.3-8.2) g/dL Albumin 2.6 L (3.5-5.0) g/dL Urine Protein (Negative) 11/14/20 11/14/20 Range/Units 07:10 10:28 WBC (3.8-10.6) k/uL RBC (3.80-5.40) m/uL Hgb (11.4-16.0) gm/dL Hct (34.0-46.0) % RDW (11.5-15.5) % Plt Count (150-450) k/uL Neutrophils # (Manual) (1.3-7.7) k/uL Monocytes # (Manual) (0-1.0) k/uL Eosinophils # (Manual) (0-0.7) k/uL Metamyelocytes # (Man) (0) k/uL Myelocytes # (Manual) (0) k/uL Sodium (137-145) mmol/L Chloride (98-107) mmol/L Carbon Dioxide (22-30) mmol/L Creatinine (0.52-1.04) mg/dL Plasma Lactic Acid Andres 0.6 L (0.7-2.0) mmol/L Magnesium (1.6-2.3) mg/dL AST (14-36) U/L ALT (4-34) U/L Alkaline Phosphatase (38-126) U/L Creatine Kinase (30-135) U/L Total Protein (6.3-8.2) g/dL Albumin (3.5-5.0) g/dL Urine Protein Trace H (Negative)
[2020-11-15] MEDS: MAGNESIUM SULFATE-D5W PMX 1 GM in DEXTROSE/WATER 1 100ML.BAG IVPB SCH ×2 (01:34→02:39)
[2020-11-15] MEDS: HYDROcodone/APAP 5-325MG 1 EACH TAB PO SCH ×4 (04:35→21:58)
[2020-11-15] MEDS: PANTOPRAZOLE 40 MG TABLET PO SCH (05:49)
--- NOTE | 2020-11-15 07:34 | XR ---
EXAMINATION TYPE: XR chest 2V DATE OF EXAM: 11/15/2020 COMPARISON: 11/14/2020 INDICATION: Pneumonia TECHNIQUE: Frontal and lateral views of the chest are obtained. FINDINGS: The heart size is normal. The pulmonary vasculature is prominent. Diffuse increased lung markings are present. Small effusions are present. There is increased AP diame ter compatible with COPD.. IMPRESSION: 1. Diffuse increase lung markings with small bilateral pleural effusions superimposed on COPD. Karel nued follow-up is recommended
[2020-11-15] MEDS: SYMBICORT 160-4.5 MCG INHALER INHALATION SCH ×2 (08:01→19:44)
[2020-11-15] MEDS: IPRATROPIUM-ALBUTEROL 3 ML NEB INHALATION SCH ×4 (08:01→19:44)
[2020-11-15] MEDS: LORATADINE 10 MG TAB PO SCH (08:17)
[2020-11-15] MEDS: levETIRAcetam ORAL SOLN 500 MG/5 ML CUP PO SCH ×2 (08:18→21:57)
[2020-11-15] MEDS: LIDOCAINE 5% PATCH TOPICAL SCH (08:18)
[2020-11-15] MEDS: predniSONE 10 MG TAB PO SCH (08:18)
[2020-11-15] MEDS: LOSARTAN 25 MG TAB PO SCH (08:18)
[2020-11-15] MEDS: SODIUM CHLORIDE 0.9% 1,000 ML IV SCH ×2 (09:23→16:55)
[2020-11-15] MEDS: PIPERACILLIN-TAZOBACTAM 3.375 GM in SODIUM CHLORIDE 0.9% 100 ML IVPB SCH ×2 (09:23→16:56)
[2020-11-15 12:21] VITALS: BMI 17.6
[2020-11-15] MEDS: CHOLECALCIFEROL 25 MCG (1000 IU) TABLET PO SCH (16:47)
[2020-11-15] MEDS: ASCORBIC ACID 500 MG TAB PO SCH (16:47)
[2020-11-15] MEDS: RIVAROXABAN 20 MG TAB PO SCH (16:48)
--- NOTE | 2020-11-15 19:25 | P.PN ---
Subjective 80-year-old female with history of COPD, pneumonia, CVA, presenting to the emergency department from [facility] for fever, and acute onset of respiratory distress. She is normally on 2 L of home O2, she is requiring 5 L at this time to maintain O2 stat. Patient was recently admitted last month on 2 separate occasions for covid pneumonia, hypoxia. She is currently on Levaquin. According to staff at [facility], she was doing well yesterday, and then today developed a fever 102 and respirations distress. They did give breathing treatments at [facility] as well as in the EMS prior to arrival. She denies any chest pain, no abdominal pain, no nausea or vomiting. She is not given any Tylenol yet at this time. She denies any dysuria. She has no further complaints at this time. Upon arrival to the ER, her temperature 102.7, pulse is 139, 90% on 5 L, blood pressure is 152/90. EKG shows sinus tachycardia with nonspecific ST and T wave changes Lab review shows a WBC of 32.8, hemoglobin 10.1, lactic acid of 2.1, sodium 133, troponin is normal, BNP of 1600, rapid Covid is negative Chest x-ray shows right upper lobe pneumonia Subjective: This is a pleasant 59 Kish[place] old male who presents with respiratory symptoms He presents with sepsis with fever at 102.7 and leukocytosis of 32, with tachycardia and tachypnea. She remains on 4 L/m of oxygen with saturation of 95% Chest x-ray showing diffuse increased lung markings with small bilateral pleural effusions superimposed on COPD. Initial chest x-ray showing right lung pneumonia Sputum culture showing the presumptive staph. Patient is currently with Zosyn This will be discussed with infectious disease team who are on the case. He remains on normal saline at 130 milliliters per hour Objective - Vital Signs Vital signs: Vital Signs Temp 97.5 F L 11/15/20 10:29 Pulse 80 11/15/20 11:22 Resp 18 11/15/20 11:22 BP 116/65 11/15/20 10:29 Pulse Ox 95 11/15/20 10:29 Intake & Output 11/14/20 11/15/20 11/15/20 18:59 06:59 18:59 Output Total 1050 Balance -1050 Weight 48.081 kg 48.081 kg Output: Urine 1050 Straight 400 Other: Voiding Method Bedpan Bedpan Diaper Diaper # Voids 3 1 # Bowel Movements 5 - Exam GENERAL: The patient is alert and oriented x3, not in any acute distress. Well developed, well nourished. HEENT: Pupils are round and equally reacting to light. EOMI. No scleral icterus. No conjunctival pallor. Normocephalic, atraumatic. No pharyngeal erythema. No thyromegaly. CARDIOVASCULAR: S1 and S2 present. No murmurs, rubs, or gallops. -PULMONARY: Chest is clear to auscultation, no wheezing. diffuse bilateral crepitation ABDOMEN: Soft, nontender, nondistended, normoactive bowel sounds. No palpable organomegaly. MUSCULOSKELETAL: No joint swelling or deformity. EXTREMITIES: No cyanosis, clubbing, or pedal edema. NEUROLOGICAL: Gross neurological examination did not reveal any focal deficits. SKIN: No rashes. no petechiae. - Labs CBC & Chem 7: 11/14/20 07:10 11/14/20 07:10 Labs: Abnormal Lab Results - Last 24 Hours (Table) 11/14/20 Range/Units 07:10 Urine Protein Trace H (Negative) Microbiology - Last 24 Hours (Table) 11/14/20 09:16 Blood Culture - Preliminary Blood No Growth after 24 hours 11/14/20 23:15 Sputum Culture - Preliminary Sputum 11/14/20 16:33 Gram Stain - Preliminary Sputum Sputum Culture - Preliminary Assessment and Plan Assessment: Assessment and Plan 1. Right upper lobe pneumonia; and diffuse pneumonia. Sputum culture is growing presumptive staph. Currently he is on IV Zosyn and case was discussed with infectious disease team who are on the case 2. Sepsis; secondary to 1; as evidenced by elevated white blood count, lactic acid level, tachycardia and hypoxia. Continue with IV fluid 3. Acute exacerbation COPD; continue with home inhaler therapy; we will add Du oNeb nebulizer treatments 4. Hypertension; continue home dose of losartan 25 mg daily 5. Seizure disorder; Keppra 500 mg twice a day 6. History of CVA; patient remains on anticoagulation with Xarelto DVT prophylaxis; SCDs/systemic anticoagulation CODE STATUS; full code
--- NOTE | 2020-11-15 21:24 | PN ---
PROGRESS NOTE DATE OF SERVICE: 11/15/2020 REASON FOR FOLLOWUP: Pneumonia. INTERVAL HISTORY: The patient is afebrile. Patient is breathing slightly comfortably. Denies having any chest pain. She did have a cough, not bringing up any sputum. No nausea, no vomiting. No abdominal pain. No diarrhea. PHYSICAL EXAMINATION: Blood pressure 115/55, pulse of 80. Temperature 97.5. She is 95% on 4 L nasal cannula. General description is an elderly female lying in bed in no distress. Respiratory system: Unlabored breathing, decreased breath sounds in the bases. No wheeze. Heart S1, S2. Regular rate and rhythm. Abdomen: Soft, no tenderness. LABS: Hemoglobin is 10.1, hematocrit 32.8. BUN of 13, creatinine 0.30. Sputum showing Staph aureus. DIAGNOSTIC IMPRESSION AND PLAN: Patient with nosocomial pneumonia concern for gram-negative, however sputum showing a Staph aureus. We will add Zyvox to cover for possible MRSA, adjusting antibiotic further based on culture report. Continue supportive care. MMODL / IJN: [id number] /
[2020-11-15] MEDS: ALPRAZolam 0.25 MG TAB PO PRN (21:57)
[2020-11-15] MEDS: LINEZOLID 600 MG TAB PO SCH (21:57)
[2020-11-15] MEDS: HYDROcodone/APAP 7.5-325MG 1 EACH TAB PO PRN (21:57)
[2020-11-16] MEDS: SODIUM CHLORIDE 0.9% 1,000 ML IV SCH ×3 (00:49→17:11)
[2020-11-16] MEDS: PIPERACILLIN-TAZOBACTAM 3.375 GM in SODIUM CHLORIDE 0.9% 100 ML IVPB SCH ×3 (00:49→16:05)
[2020-11-16] MEDS: HYDROcodone/APAP 5-325MG 1 EACH TAB PO SCH (05:13)
[2020-11-16] MEDS: PANTOPRAZOLE 40 MG TABLET PO SCH (05:23)
[2020-11-16] MEDS: LORATADINE 10 MG TAB PO SCH (08:22)
[2020-11-16] MEDS: LOSARTAN 25 MG TAB PO SCH (08:23)
[2020-11-16] MEDS: predniSONE 10 MG TAB PO SCH (08:23)
[2020-11-16] MEDS: LINEZOLID 600 MG TAB PO SCH ×2 (08:23→21:55)
[2020-11-16] MEDS: LIDOCAINE 5% PATCH TOPICAL SCH (08:23)
[2020-11-16] MEDS: levETIRAcetam ORAL SOLN 500 MG/5 ML CUP PO SCH ×2 (08:26→21:55)
[2020-11-16] MEDS: HYDROcodone/APAP 7.5-325MG 1 EACH TAB PO PRN (08:34)
[2020-11-16] MEDS: IPRATROPIUM-ALBUTEROL 3 ML NEB INHALATION SCH ×4 (08:59→20:52)
[2020-11-16] MEDS: SYMBICORT 160-4.5 MCG INHALER INHALATION SCH ×2 (08:59→20:52)
[2020-11-16 11:09] LABS: Basophils # (A) 0.05 X 10*3/uL (0.00-0.10); Basophils % (A) 0.2 %; Eosinophils # (A) 0.15 X 10*3/uL (0.04-0.35); Eosinophils % (A) 0.7 %; HCT 27.9 % (37.2-46.3); HGB 8.5 g/dL (12.0-15.0); Lymphocytes % (A) 5.3 %; MCH 27.7 pg (27.0-32.0); MCHC 30.5 g/dL (32.0-37.0); MCV 90.9 fL (80.0-97.0); Mean Platelet Volume 10.1 fL (9.5-12.2); Monocytes # (A) 1.08 X 10*3/uL (0.20-1.00); Monocytes % (A) 4.7 %; Neutrophils # (A) 19.44 X 10*3/uL (1.80-7.70); Neutrophils % (A) 85.3 %; Platelet Count 388 X 10*3/uL (140-440); RBC 3.07 X 10*6/uL (4.10-5.20); RDW 16.6 % (11.5-14.5); WBC 22.79 X 10*3/uL (4.50-10.00)
[2020-11-16 12:35] LABS: African American GFR (CKD) 126.2 (60.0-200.0); Albumin 2.6 g/dL (3.80-4.90); Albumin/Globulin Ratio 1.04 (1.60-3.17); Anion Gap 8.8 mmol/L (4.00-12.00); BUN/Creat Ratio 56.67 Ratio (12.00-20.00); Bilirubin, Conjugated 0.2 mg/dL (0.20-0.40); Bilirubin,Unconjugated 0.2 mg/dL; Calcium 8.4 mg/dL (8.7-10.3); Carbon Dioxide 25.2 mmol/L (21.6-31.8); Globulin 2.5 g/dL (1.6-3.3); Magnesium 1.7 mg/dL (1.5-2.4); Non-African American GFR(CKD) 108.9 (60.0-200.0); Potassium 4.2 mmol/L (3.5-5.5); Total Bilirubin 0.4 mg/dL (0.2-1.2); Total Protein 5.1 g/dL (6.2-8.2)
[2020-11-16] MEDS: ALPRAZolam 0.25 MG TAB PO PRN (12:51)
[2020-11-16] MEDS: ASCORBIC ACID 500 MG TAB PO SCH (17:12)
[2020-11-16] MEDS: RIVAROXABAN 20 MG TAB PO SCH (17:12)
[2020-11-16] MEDS: CHOLECALCIFEROL 25 MCG (1000 IU) TABLET PO SCH (17:13)
--- NOTE | 2020-11-16 18:51 | P.CNPUL ---
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 Following hospitalization patient was discharged to [facility] at [facility] on 11/09/2020 in stable condition to complete on oral course of Levaquin. Patient was brought back to the hospital per EMS on November for evaluation of acute onset of respiratory distress. She normally wears 2 L of oxygen on a regular basis, she was requiring 5 L the time of admission to maintain O2 saturations within stable limits. There is also a reported fever at the [facility] with a temp of 10 2F. Patient received breathing treatments at the [facility] and EMS on the way to the hospital, she denies any chest pain, denies any hemoptysis, no dysuria. She was also febrile in the emergency department. Chest x-ray shows emphysematous lungs with new right upper lobe patchy airspace opacity. And there is small left and tiny right pleural effusions. She was tested for COVID-19 was found to be negative. Her sputum culture showed MRSA. Blood culture has shown no growth. Her white blood cell count on admission was 32.8, hemoglobin was 10.1, platelet count was 643, sodium was 133, potassium is 4.5, chloride is 95, CO2 31, BUN is 13, creatinine 0.3, plasma lactic acid was 2.1, AST was 39, ALT was 72, alkaline phosphatase was 272, CK was less than 20, proBNP was 1610, urinalysis showed trace protein, but no clear evidence of infection. Patient has a loose congested cough, her fever pattern has improved since admission. She is currently on Zyvox for antibiotic coverage, ID service is following, she is on breathing treatments, and maintenance dose of oral prednisone 10 mg daily. Review of Systems All systems: negative Constitutional: Denies chills, Denies fever Eyes: denies blurred vision, denies pain Ears, nose, mouth and throat: Denies headache, Denies sore throat Cardiovascular: Denies chest pain, Denies shortness of breath Respiratory: Reports dyspnea, Denies cough Gastrointestinal: Denies abdominal pain, Denies diarrhea, Denies nausea, Denies vomiting Genitourinary: Denies dysuria, Denies hematuria Musculoskeletal: Denies myalgias Integumentary: Denies pruritus, Denies rash Neurological: Denies numbness, Denies weakness Psychiatric: Denies anxiety, Denies depression Endocrine: Denies fatigue, Denies weight change Past Medical History Past Medical History: COPD, CVA/TIA, Pneumonia, Respiratory Disorder Additional Past Medical History / Comment(s): cataracts(sx done), "bruises easily-thin fragile skin", lower dental bridge, CVA September, Covid 10/2020 History of Any Multi-Drug Resistant Organisms: MRSA Date of last positivie culture/infection: 07/24/19 MDRO Source:: MRSA SPUTUM Past Surgical History: Appendectomy, Tonsillectomy Additional Past Surgical History / Comment(s): Bilateral cataracts Past Anesthesia/Blood Transfusion Reactions: No Reported Reaction Past Psychological History: Anxiety Smoking Status: Former smoker Past Alcohol Use History: None Reported Additional Past Alcohol Use History / Comment(s): started smoking age 16 smoked 1 ppd Past Drug Use History: None Reported - Past Family History Mother Family Medical History: Myocardial Infarction (MS) Additional Family Medical History / Comment(s): Mother from a ruptured brain aneurysm, history of a heart attack Father Family Medical History: Diabetes Mellitus Additional Family Medical History / Comment(s): "heart problems" Father from bladder cancer , Medications and Allergies Home Medications Medication Instructions Recorded Confirmed Type Budesonide-Formot 160-4.5 Mcg 2 puff INHALATION RT-BID@0800,1700 06/28/19 11/14/20 History [Symbicort 160-4.5 Mcg Inhaler] Ipratropium-Albuterol Nebulize 3 ml INHALATION RT-Q6H PRN 10/16/20 11/14/20 History [Duoneb 0.5 mg-3 mg/3 ml Soln] Ipratropium-Albuterol Nebulize 3 ml INHALATION RT-QID 10/16/20 11/14/20 History [Duoneb 0.5 mg-3 mg/3 ml Soln] Lactose-Reduced Food [Ensure Plus] 120 ml PO TID@0800,1200,1700 10/16/2011/14 History Losartan [Cozaar] 25 mg PO DAILY@0800 10/16/20 11/14/20 History Magnesium Hydroxide [Milk of 7,200 mg PO DAILY PRN 10/16/20 11/14/20 History Magnesia Concentrate] Na Phos,M-B/Na Phos,Di-Ba [Fleet 133 ml RECTAL DAILY PRN 10/16/20 11/14/20 History Adult] Pantoprazole [Protonix] 40 mg PO DAILY@0600 10/16/20 11/14/20 History Sodium Chloride [Saline Nasal 1 spray EA NOSTRIL Q2H PRN 10/16/20 11/14/20 History [place]] bisacodyL [Dulcolax] 10 mg RECTAL DAILY PRN 10/16/20 11/14/20 History levETIRAcetam ORAL SOLN [Keppra 500 mg PO BID@0800,2100 10/16/20 11/14/20 Hi story Oral Soln] predniSONE 10 mg PO DAILY@0800 10/16/20 11/14/20 History Acetaminophen Tab [Tylenol] 500 mg PO Q6HR PRN tab 10/22/20 11/14/20 Rx Ascorbic Acid [Vitamin C] 1,000 mg PO DAILY@1700 11/03/20 11/14/20 History Cholecalciferol [Vitamin D3 (25 100 mcg PO DAILY@1700 11/03/20 11/14/20 History Mcg = 1000 Iu)] Loratadine [Claritin] 5 mg PO DAILY@0800 11/03/20 11/14/20 History Menthol/Zinc Oxide [Calmoseptine 1 applic TOPICAL BID 11/03/20 11/14/20 History Ointment] Lidocaine 5% Patch [Lidoderm 5% 1 patch TOPICAL DAILY@0800 #3 patch 11/09/20 11/14/20 Rx Patch] Melatonin 3 mg PO HS PRN tablet 11/09/20 11/14/20 Rx ALPRAZolam [Xanax] 0.25 mg PO BID PRN 11/14/20 11/14/20 History HYDROcodone/APAP 5-325MG [Watson 1 tab PO DAILY PRN 11/14/20 11/14/20 History 5-325] HYDROcodone/APAP 5-325MG [Watson 1 tab PO Q6H 11/14/20 11/14/20 History 5-325] Rivaroxaban [Xarelto] 20 mg PO DAILY@1700 11/14/20 11/14/20 History Allergies Allergy/AdvReac Type Severity Reaction Status Date / Time aspirin AdvReac excessive Verified 11/14/20 07:55 brusing Physical Exam Vitals: Vital Signs Temp Pulse Pulse Resp BP Pulse Ox 11/16/20 18:06 107 H 11/16/20 17:59 99 11/16/20 17:57 102 H 11/16/20 14:00 98.5 F 101 H 16 149/84 98 11/16/20 10:56 22 11/16/20 10:55 99.5 F 105 H 22 130/64 98 11/16/20 09:13 88 18 11/16/20 09:00 88 96 11/16/20 07:21 98.4 F 91 20 127/72 97 11/16/20 02:29 97.9 F 93 20 145/73 96 11/15/20 20:27 102 H 19 11/15/20 19:57 100 11/15/20 19:44 100 100 11/15/20 18:40 98.1 F 102 H 19 137/70 98 Intake and Output 11/16/20 11/16/20 11/16/20 06:59 14:59 22:59 Other: Voiding Method External Catheter # Voids 1 1 # Bowel Movements 0 GENERAL EXAM: Alert, very pleasant, cachectic looking 80-year-old white female, on 4 L of oxygen and pulse ox of 99%, comfortable in no apparent distress. HEAD: Normocephalic/atraumatic. EYES: Normal reaction of pupils, equal size. Conjunctiva pink, sclera white. NOSE: Clear with pink turbinates. THROAT: No erythema or exudates. NECK: No masses, no JVD, no thyroid enlargement, no adenopathy. CHEST: No chest wall deformity. Symmetrical expansion. LUNGS: Equal air entry with diminished breath sounds, frequent cough, loose cough CVS: Regular rate and rhythm, normal S1 and S2, no gallops, no murmurs, no rubs ABDOMEN: Soft, nontender. No hepatosplenomegaly, normal bowel sounds, no guarding or rigidity. EXTREMITIES: No clubbing, no edema, no cyanosis, 2+ pulses and upper and lower extremities. MUSCULOSKELETAL: Muscle strength and tone normal. SPINE: No scoliosis or deformity SKIN: No rashes CENTRAL NERVOUS SYSTEM: Alert and oriented -3. No focal deficits, tone is normal in all 4 extremities. PSYCHIATRIC: Alert and oriented -3. Appropriate affect. Intact judgment and insight. Results - Laboratory Findings CBC and BMP: 11/16/20 07:29 11/16/20 07:29 PT/INR, D-dimer PT 11.4 sec (9.0-12.0) 11/14/20 07:10 INR 1.1 (<1.2) 11/14/20 07:10 Abnormal lab findings: Abnormal Labs 11/14/20 11/14/20 11/14/20 07:10 07:10 07:10 WBC 32.8 H RBC 3.47 L Hgb 10.1 L Hct 30.6 L MCHC RDW 15.8 H Plt Count 643 H Immature Gran # Neutrophils # Neutrophils # (Manual) 27.80 H Monocytes # Monocytes # (Manual) 1.97 H Eosinophils # (Manual) 1.64 H Metamyelocytes # (Man) 0.33 H Myelocytes # (Manual) 0.33 H Sodium 133 L Chloride 95 L Carbon Dioxide 31 H Creatinine 0.30 L BUN/Creatinine Ratio Plasma Lactic Acid Andres 2.1 H* Calcium Magnesium 1.5 L AST 39 H ALT 72 H Alkaline Phosphatase 272 H Creatine Kinase <20 L Total Protein 6.0 L Albumin 2.6 L Albumin/Globulin Ratio Urine Protein 11/14/20 11/14/20 11/16/20 07:10 10:28 07:29 WBC 22.79 H RBC 3.07 L Hgb 8.5 L Hct 27.9 L MCHC 30.5 L RDW 16.6 H Plt Count Immature Gran # 0.87 H Neutrophils # 19.44 H Neutrophils # (Manual) Monocytes # 1.08 H Monocytes # (Manual) Eosinophils # (Manual) Metamyelocytes # (Man) Myelocytes # (Manual) Sodium Chloride Carbon Dioxide Creatinine BUN/Creatinine Ratio Plasma Lactic Acid Andres 0.6 L Calcium Magnesium AST ALT Alkaline Phosphatase Creatine Kinase Total Protein Albumin Albumin/Globulin Ratio Urine Protein Trace H 11/16/20 07:29 WBC RBC Hgb Hct MCHC RDW Plt Count Immature Gran # Neutrophils # Neutrophils # (Manual) Monocytes # Monocytes # (Manual) Eosinophils # (Manual) Metamyelocytes # (Man) Myelocytes # (Manual) Sodium Chloride Carbon Dioxide Creatinine 0.3 L BUN/Creatinine Ratio 56.67 H Plasma Lactic Acid Andres Calcium 8.4 L Magnesium AST ALT 51 H Alkaline Phosphatase 185 H Creatine Kinase Total Protein 5.1 L Albumin 2.60 L Albumin/Globulin Ratio 1.04 L Urine Protein - Diagnostic Findings Chest x-ray: report reviewed, image reviewed Additional studies: EKG reviewed Assessment and Plan Plan: Assessment: #1. Acute on chronic hypoxic respiratory failure related to acute MRSA related pneumonia, possibly healthcare acquired. Patient is currently on Zyvox. COVID- 19 PCR was negative, chest x-ray showed new right upper lobe patchy airspace opacity with a background of emphysematous lungs. And small left and tiny right pleural effusions #2. Recent hospitalization for acute exacerbation of COPD, and urinary tract infection related to enterococcus facaelis, discharge to [facility] on oral 11/09/2020 #3. Previous history of MRSA pneumonia #4. Recent COVID-19 infection in October 2020 #5. Advanced COPD on home oxygen usually on 2 L, with baseline FEV1 of less than 50% of predicted #6. Chronic scarring in the right upper lobe #7. [id number] smoking history, currently in remission #8. Compression fracture of T12 spine with evidence of thoracolumbar kyphoscoliosis #9. Severe cachexia and anorexia syndrome related to advanced COPD #10. History of seizure disorder #11. Chronic anxiety #12. History of pulmonary hypertension likely related to chronic advanced lung disease #13. Poor overall functional performance Plan: Continue antibiotics per ID service recommendations Continue maintenance dose prednisone Breathing treatments Weaning FiO2 Continue when necessary has improved Obtain follow-up labs including CBC and BMP and LFTs We'll continue to follow I performed a history & physical examination of the patient and discussed their management with my nurse practitioner, Leni Zarco. I reviewed the nurse practitioner's note and agree with the documented findings and plan of care. Lung sounds are positive for diminished breath sounds throughout the lung atkins. The findings and the impression was discussed with the patient. I attest to the documentation by the nurse practitioner. Time with Patient: Greater than 30
--- NOTE | 2020-11-16 19:07 | PN ---
PROGRESS NOTE DATE OF SERVICE: 11/16/2020 REASON FOR FOLLOWUP: MRSA pneumonia. INTERVAL HISTORY: The patient is afebrile. The patient is breathing slightly comfortably. The patient denies having any chest pain. She did have a cough, unable to bring up any sputum. No vomiting. No abdominal pain or diarrhea. PHYSICAL EXAMINATION: Blood pressure 149/84, pulse of 101, temperature 98.5. She is 98% on 4 L nasal cannula. GENERAL DESCRIPTION: General description is an elderly female lying in bed in no distress. RESPIRATORY SYSTEM: Unlabored breathing. Decreased intensity of breath sounds. No wheeze. HEART: S1, S2. Regular rate and rhythm. ABDOMEN: Soft. No tenderness. LABS: Sputum is showing MRSA. White count is down to 22,000. DIAGNOSTIC IMPRESSION AND PLAN: Patient admitted to hospital with pneumonia, concern for aspiration. However, sputum is now showing MRSA. Antibiotic to continue in the form of Zyvox. Discontinue Zosyn and monitor clinical course closely. Continue supportive care. MMODL / IJN: [id number] /
--- NOTE | 2020-11-16 20:10 | P.PN ---
Progress Note - Text Progress Note Date: 11/16/20 Chief Complaint: Shortness of breath History of presenting complaint: This is a 80-year-old patient,from [facility]. followed by Dr. Granado. stopped smoking 2 years ago. 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 Has been nonambulatory. in the hospital from October 16 - October 22. Diagnosed with bilateral pulmonary embolism started on xarelto. Bilateral: COVID pneumonia. Not felt to have bacterial pneumonia. COPD exacerbation. Protein calorie malnutrition. Admitted from November 03 through November 09: with acute COPD exacerbation and acute on chronic hypoxic respiratory failure. Questionable pneumonia. With a family meeting was held. Patient was made DO NOT RESUSCITATE. And discussion also about hospice. Now presented with fever of 102, shortness of breath, respiratory distress. Chest x-ray did confirm pneumonia 11/16/2020: Patient . Slight cough. No sputum. Sputum positive for MRSA. Changed to Zyvox yesterday. Zosyn discontinued. Short of breath. Eating some. Review of systems: Was done for constitutional, cardiovascular, GI, pulmonary. relevant finding as above Active Medications Hydrocodone Bitart/Acetaminophen (Hydrocodone/Apap 7.5-325mg 1 Each Tab) 1 each PO Q6HR PRN PRN Reason: Pain Last Admin: 11/16/20 08:34 Dose: 1 each Documented by: Albuterol/Ipratropium (Ipratropium-Albuterol 3 Ml Neb) 3 ml INHALATION RT-Q6H PRN PRN Reason: SHORTNESS OF BREATH Albuterol/Ipratropium (Ipratropium-Albuterol 3 Ml Neb) 3 ml INHALATION RT-QID [facility] Last Admin: 11/16/20 17:55 Dose: 3 ml Documented by: Alprazolam (Alprazolam 0.25 Mg Tab) 0.25 mg PO BID PRN PRN Reason: Anxiety Last Admin: 11/16/20 12:51 Dose: 0.25 mg Documented by: Ascorbic Acid (Ascorbic Acid 500 Mg Tab) 1,000 mg PO DAILY@1700 [facility] Last Admin: 11/16/20 17:12 Dose: 1,000 mg Documented by: Bisacodyl (Bisacodyl 10 Mg Supp) 10 mg RECTAL DAILY PRN PRN Reason: Constipation Budesonide/Formoterol Fumarate (Symbicort 160-4.5 Mcg Inhaler) 2 puff INHALATION RT-BID [facility] Last Admin: 11/16/20 08:59 Dose: 2 puff Documented by: Cholecalciferol (Cholecalciferol 25 Mcg (1000 Iu) Tablet) 100 mcg PO DAILY@1700 [facility] Last Admin: 11/16/20 17:13 Dose: 100 mcg Documented by: Sodium Chloride (Saline 0.9%) 1,000 mls @ 130 mls/hr IV .Q7H42M [facility] Last Admin: 11/16/20 17:11 Dose: 130 mls/hr Documented by: Levetiracetam (Levetiracetam Oral Soln 500 Mg/5 Ml Cup) 500 mg PO BID@0800,2100 [facility] Last Admin: 11/16/20 08:26 Dose: 500 mg Documented by: Lidocaine (Lidocaine 5% Patch) 1 patch TOPICAL DAILY@0800 [facility]; Protocol Last Admin: 11/16/20 08:23 Dose: 1 patch Documented by: Linezolid (Linezolid 600 Mg Tab) 600 mg PO Q12HR [facility] Last Admin: 11/16/20 08:23 Dose: 600 mg Documented by: Loratadine (Loratadine 10 Mg Tab) 5 mg PO DAILY@0800 [facility] Last Admin: 11/16/20 08:22 Dose: 5 mg Documented by: Losartan Potassium (Losartan 25 Mg Tab) 25 mg PO DAILY@0800 [facility] Last Admin: 11/16/20 08:23 Dose: 25 mg Documented by: Magnesium Hydroxide (Magnesium Hydroxide 2,400 Mg/10 Ml Cup) 2,400 mg PO DAILY PRN PRN Reason: Constipation Melatonin (Melatonin 5 Mg Tablet) 5 mg PO HS [facility] Miscellaneous Information (Pneumonia Protocol Utilized 1 Each Misc) 1 each PO ONCE PRN PRN Reason: Per Protocol Miscellaneous Information (Magnesium Replacement Protocol 1 Each Mis) 1 each MISCELLANE DAILY PRN; Protocol PRN Reason: Per Protocol Pantoprazole Sodium (Pantoprazole 40 Mg Tablet) 40 mg PO DAILY@0600 [facility] Last Admin: 11/16/20 05:23 Dose: 40 mg Documented by: Prednisone (Prednisone 10 Mg Tab) 10 mg PO DAILY@0800 [facility] Last Admin: 11/16/20 08:23 Dose: 10 mg Documented by: Rivaroxaban (Rivaroxaban 20 Mg Tab) 20 mg PO DAILY@1700 [facility]; Protocol Last Admin: 11/16/20 17:12 Dose: 20 mg Documented by: Past medical history to include: COPD, stroke with left-sided weakness, home oxygen 3 L, Social history: Patient smoking from the age of 16 up to 2 years ago. One pack a day. No alcohol. Currently at [facility]. Family history: Mother from a ruptured brain aneurysm. Coronary artery disease Physical examination: VITAL SIGNS: Afebrile, 91, 20, 127/ 72, 97% on 4 L GENERAL: Reclining In bed, eating lunch very thin built with muscle wasting , tired and short of breath EYES: Pupils equal. Conjunctiva pale. HEENT: External appearance of nose and ears normal, oral cavity grossly normal. Hard of hearing NECK: JVD not raised; masses not palpable. HEART: First and second heart sounds are normal; no edema. LUNGS: Respiratory rate increased; diminished breath sounds ABDOMEN: Soft, nontender, liver spleen not palpable, no masses palpable. PSYCH: Able to answer simple questions MUSCULAR skeletal: Diffuse wasting of muscles, muscle muscle mass, prominent bones, osteoarthritis NEURO: Left-sided weakness INVESTIGATIONS, reviewed in the clinical context: WBC 22.7 hemoglobin 8.5 platelets 388 potassium 4.2 creatinine 0.3 albumin 2.6 Chest x-ray: Diffuse increased lung markings Sputum culture: MRSA Assessment and plan: -Pneumonia secondary to MRSA IV Zosyn discontinued. Zyvox 600 mg twice a day -Acute exacerbation of advanced prednisone dependent COPD in a previous smoker: Slow to respond DuoNeb 4 times a day, Symbicort 160/4.52 puffs twice a day, increase prednisone to 40 mg -Subacute bilateral pulmonary embolism Continue Xarelto -Questionable lung mass and new pneumatocele Follow pulmonary -Acute on chronic hypoxic respiratory failure from COPD exacerbation: Slow to respond Currently on 4 L of nasal cannula -Moderate protein calorie malnutrition from decreased oral intake Nutritional supplement -Left hemiparesis from prior stroke Patient non-ambulatory -Chronic medical debility -Essential hypertension Cozaar 25 mg daily -GERD Protonix 40 mg daily -muscular skeletal pain. Primary osteoarthritis [place] 5/500 one tablet every 6 when necessary -DO NOT RESUSCITATE Care was discussed with the patient. Continue with Zyvox. Bronchodilators. Increase prednisone to 40 mg. Prognosis guarded. Consult pulmonary. Discussed with patient.
[2020-11-16] MEDS: HYDROcodone/APAP 7.5-325MG 1 EACH TAB PO SCH (21:55)
[2020-11-16] MEDS: MELATONIN 5 MG TABLET PO SCH (21:56)
[2020-11-16] MEDS: LACTATED RINGERS 1,000 ML IV SCH (21:56)
[2020-11-16] MEDS: predniSONE 20 MG TAB PO SCH (22:37)
[2020-11-17] MEDS: HYDROcodone/APAP 7.5-325MG 1 EACH TAB PO SCH ×6 (00:11→23:29)
[2020-11-17] MEDS: PANTOPRAZOLE 40 MG TABLET PO SCH (06:03)
[2020-11-17] MEDS: LORATADINE 10 MG TAB PO SCH (07:55)
[2020-11-17] MEDS: LOSARTAN 25 MG TAB PO SCH (07:56)
[2020-11-17] MEDS: levETIRAcetam ORAL SOLN 500 MG/5 ML CUP PO SCH ×2 (07:56→20:30)
[2020-11-17] MEDS: LIDOCAINE 5% PATCH TOPICAL SCH (07:57)
[2020-11-17] MEDS: SYMBICORT 160-4.5 MCG INHALER INHALATION SCH ×2 (09:02→21:06)
[2020-11-17] MEDS: IPRATROPIUM-ALBUTEROL 3 ML NEB INHALATION SCH ×4 (09:02→21:06)
[2020-11-17] MEDS: LINEZOLID 600 MG TAB PO SCH ×2 (10:52→20:31)
[2020-11-17] MEDS: predniSONE 20 MG TAB PO SCH ×2 (10:52→10:53)
[2020-11-17] MEDS: LACTATED RINGERS 1,000 ML IV SCH (11:01)
[2020-11-17] MEDS: ASCORBIC ACID 500 MG TAB PO SCH (17:44)
[2020-11-17] MEDS: CHOLECALCIFEROL 25 MCG (1000 IU) TABLET PO SCH (17:45)
[2020-11-17] MEDS: RIVAROXABAN 20 MG TAB PO SCH (17:45)
--- NOTE | 2020-11-17 17:54 | P.PN ---
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 Following hospitalization patient was discharged to [facility] at [facility] on 11/09/2020 in stable condition to complete on oral course of Levaquin. Patient was brought back to the hospital per EMS on November for evaluation of acute onset of respi ratory distress. She normally wears 2 L of oxygen on a regular basis, she was requiring 5 L the time of admission to maintain O2 saturations within stable limits. There is also a reported fever at the [facility] with a temp of 10 2F. Patient received breathing treatments at the [facility] and EMS on the way to the hospital, she denies any chest pain, denies any hemoptysis, no dysuria. She was also febrile in the emergency department. Chest x-ray shows emphysematous lungs with new right upper lobe patchy airspace opacity. And there is small left and tiny right pleural effusions. She was tested for COVID-19 was found to be negative. Her sputum culture showed MRSA. Blood culture has shown no growth. Her white blood cell count on admission was 32.8, hemoglobin was 10.1, platelet count was 643, sodium was 133, potassium is 4.5, chloride is 95, CO2 31, BUN is 13, creatinine 0.3, plasma lactic acid was 2.1, AST was 39, ALT was 72, alkaline phosphatase was 272, CK was less than 20, proBNP was 1610, urinalysis showed trace protein, but no clear evidence of infection. Patient has a loose congest ed cough, her fever pattern has improved since admission. She is currently on Zyvox for antibiotic coverage, ID service is following, she is on breathing treatments, and maintenance dose of oral prednisone 10 mg daily. On 11/17/2020 patient seen in follow-up on medical surgical floor, she is breat kalyan easier today, she is on 4 L of oxygen pulse ox of 92%, she's been afebrile overnight, blood pressure has been stable. Patient continues on nebulized bronchodilators, she is on oral prednisone. Patient is currently on oral Zyvox 600 mg every 12 hours. This had no fever or chills overnight. Sputum culture was positive for MRSA. Her sputum sample is also growing presumptive staph aureus and Cinthia albicans. Her white count is improving since admission, it was down to 22.7 on the yesterday's labs. Electrolytes and renal profile were within normal limits. no acute events overnight, no hemoptysis, no chest discomfort. Lung sounds are extremely diminished, without significant rhonchi or wheezing. Objective - Vital Signs Vital signs: Vital Signs Temp 97.5 F L 11/17/20 14:00 Pulse 104 H 11/17/20 17:11 Resp 17 11/17/20 14:00 BP 126/70 11/17/20 14:00 Pulse Ox 92 L 11/17/20 14:00 Intake & Output 11/16/20 11/17/20 11/17/20 18:59 06:59 18:59 Intake Total 540 100 Balance 540 100 Intake: Oral 540 100 Other: Voiding Method External Catheter External Catheter # Voids 2 - Exam GENERAL EXAM: Alert, very pleasant, cachectic looking 80-year-old white female, on 4 L of oxygen and pulse ox of 99%, comfortable in no apparent distress. HEAD: Normocephalic/atraumatic. EYES: Normal reaction of pupils, equal size. Conjunctiva pink, sclera white. NOSE: Clear with pink turbinates. THROAT: No erythema or exudates. NECK: No masses, no JVD, no thyroid enlargement, no adenopathy. CHEST: No chest wall deformity. Symmetrical expansion. LUNGS: Equal air entry with diminished breath sounds, frequent cough, loose cough CVS: Regular rate and rhythm, normal S1 and S2, no gallops, no murmurs, no rubs ABDOMEN: Soft, nontender. No hepatosplenomegaly, normal bowel sounds, no guarding or rigidity. EXTREMITIES: No clubbing, no edema, no cyanosis, 2+ pulses and upper and lower extremities. MUSCULOSKELETAL: Muscle strength and tone normal. SPINE: No scoliosis or deformity SKIN: No rashes CENTRAL NERVOUS SYSTEM: Alert and oriented -3. No focal deficits, tone is normal in all 4 extremities. PSYCHIATRIC: Alert and oriented -3. Appropriate affect. Intact judgment and insight. - Labs CBC & Chem 7: 11/16/20 07:29 11/16/20 07:29 Labs: Microbiology - Last 24 Hours (Table) 11/14/20 09:16 Blood Culture - Preliminary Blood No Growth after 72 hours 11/14/20 23:15 Gram Stain - Preliminary Sputum Sputum Culture - Preliminary Presumptive Staph aureus Cinthia albicans 11/14/20 16:33 Gram Stain - Final Sputum Sputum Culture - Final Methicillin resist S. aureus Assessment and Plan Plan: Assessment: #1. Acute on chronic hypoxic respiratory failure related to acute MRSA related pneumonia, possibly healthcare acquired. Patient is currently on Zyvox. COVID- 19 PCR was negative, chest x-ray showed new right upper lobe patchy airspace opacity with a background of emphysematous lungs. And small left and tiny right pleural effusions #2. Recent hospitalization for acute exacerbation of COPD, and urinary tract infection related to enterococcus facaelis, discharge to [facility] on oral 11/09/2020 #3. Previous history of MRSA pneumonia #4. Recent COVID-19 infection in October 2020 #5. Advanced COPD on home oxygen usually on 2 L, with baseline FEV1 of less than 50% of predicted #6. Chronic scarring in the right upper lobe #7. [id number] smoking history, currently in remission #8. Compression fracture of T12 spine with evidence of thoracolumbar kyphoscoliosis #9. Severe cachexia and anorexia syndrome related to advanced COPD #10. History of seizure disorder #11. Chronic anxiety #12. History of pulmonary hypertension likely related to chronic advanced lung disease #13. Poor overall functional performance Plan: No fever or chills, vital signs have been stable Breathing slightly improved Continue with Zyvox for evidence of MRSA in the sputum Continue oral prednisone, Continue nebulized bronchodilators Follow up labs tomorrow I performed a history & physical examination of the patient and discussed their management with my nurse practitioner, Leni Zarco. I reviewed the nurse practitioner's note and agree with the documented findings and plan of care. Lung sounds are positive for diminished breath sounds throughout the lung atkins. The findings and the impression was discussed with the patient. I attest to the documentation by the nurse practitioner. Time with Patient: Less than 30
--- NOTE | 2020-11-17 18:31 | PN ---
PROGRESS NOTE DATE OF SERVICE: 11/17/2020. NINE FOLLOW UP IS: MRSA pneumonia. INTERVAL HISTORY: Patient is afebrile. The patient is breathing comfortably. The patient is more concerned about her pain medication. Denies any chest pain. She did have a cough, bringing up some sputum. No vomiting. No abdominal pain or diarrhea. PHYSICAL EXAMINATION: Blood pressure 126/70 with a pulse of 94, temperature 97.5. She is 92% on 4 L nasal cannula. General description is an elderly female lying in bed in no distress. Respiratory system: Unlabored breathing, decreased breath sounds in the base. No wheeze. Heart S1, S2. Regular rate and rhythm. Abdomen soft, no tenderness. Extremities: No edema of the feet. LABS: No new labs have been obtained today. DIAGNOSTIC IMPRESSION/PLAN: Patient with MRSA pneumonia to continue with Zyvox. We will repeat the blood work tomorrow. Plan will be for total of 2 week course of therapy and continue supportive care. MMODL / IJN: [id number] /
[2020-11-17] MEDS: MELATONIN 5 MG TABLET PO SCH (20:31)
--- NOTE | 2020-11-17 20:37 | P.PN ---
Progress Note - Text Progress Note Date: 11/17/20 Chief Complaint: Shortness of breath History of presenting complaint: This is a 80-year-old patient,from [facility]. followed by Dr. Granado. stopped smoking 2 years ago. 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 Has been nonambulatory. in the hospital from October 16 - October 22. Diagnosed with bilateral pulmonary embolism started on xarelto. Bilateral: COVID pneumonia. Not felt to have bacterial pneumonia. COPD exacerbation. Protein calorie malnutrition. Admitted from November 03 through November 09: with acute COPD exacerbation and acute on chronic hypoxic respiratory failure. Questionable pneumonia. With a family meeting was held. Patient was made DO NOT RESUSCITATE. And discussion also about hospice. Now presented with fever of 102, shortness of breath, respiratory distress. Chest x-ray did confirm pneumonia 11/16/2020: Tired. Slight cough. No sputum. Sputum positive for MRSA. Changed to Zyvox yesterday. Zosyn discontinued. Short of breath. Eating some. 11/17/2020: Reclining in bed. Some cough. Easily short winded. Eating some. Daughter and niece visiting. Pain better control in the left side. I asked for a pillow under the heel. Prognosis guarded. Discussion was reminded about the last admission when no CODE STATUS was initiated and our talk about hospice Review of systems: Was done for constitutional, cardiovascular, GI, pulmonary. relevant finding as above Active Medications Hydrocodone Bitart/Acetaminophen (Hydrocodone/Apap 7.5-325mg 1 Each Tab) 1 each PO Q6HR [facility] Last Admin: 11/17/20 17:44 Dose: 1 each Documented by: Albuterol/Ipratropium (Ipratropium-Albuterol 3 Ml Neb) 3 ml INHALATION RT-Q6H PRN PRN Reason: SHORTNESS OF BREATH Albuterol/Ipratropium (Ipratropium-Albuterol 3 Ml Neb) 3 ml INHALATION RT-QID [facility] Last Admin: 11/17/20 17:01 Dose: 3 ml Documented by: Alprazolam (Alprazolam 0.25 Mg Tab) 0.25 mg PO BID PRN PRN Reason: Anxiety Last Admin: 11/16/20 12:51 Dose: 0.25 mg Documented by: Ascorbic Acid (Ascorbic Acid 500 Mg Tab) 1,000 mg PO DAILY@1700 [facility] Last Admin: 11/17/20 17:44 Dose: 1,000 mg Documented by: Bisacodyl (Bisacodyl 10 Mg Supp) 10 mg RECTAL DAILY PRN PRN Reason: Constipation Budesonide/Formoterol Fumarate (Symbicort 160-4.5 Mcg Inhaler) 2 puff INHALATION RT-BID [facility] Last Admin: 11/17/20 09:02 Dose: 2 puff Documented by: Cholecalciferol (Cholecalciferol 25 Mcg (1000 Iu) Tablet) 100 mcg PO DAILY@1700 [facility] Last Admin: 11/17/20 17:45 Dose: 100 mcg Documented by: Lactated Ringer's (Lactated Ringers) 1,000 mls @ 75 mls/hr IV .[id number] [facility] Last Admin: 11/17/20 11:01 Dose: 75 mls/hr Documented by: Levetiracetam (Levetiracetam Oral Soln 500 Mg/5 Ml Cup) 500 mg PO BID@0800,2100 [facility] Last Admin: 11/17/20 20:30 Dose: 500 mg Documented by: Lidocaine (Lidocaine 5% Patch) 1 patch TOPICAL DAILY@0800 [facility]; Protocol Last Admin: 11/17/20 07:57 Dose: 1 patch Documented by: Linezolid (Linezolid 600 Mg Tab) 600 mg PO Q12HR [facility] Last Admin: 11/17/20 20:31 Dose: 600 mg Documented by: Losartan Potassium (Losartan 25 Mg Tab) 25 mg PO DAILY@0800 [facility] Last Admin: 11/17/20 07:56 Dose: 25 mg Documented by: Magnesium Hydroxide (Magnesium Hydroxide 2,400 Mg/10 Ml Cup) 2,400 mg PO DAILY PRN PRN Reason: Constipation Melatonin (Melatonin 5 Mg Tablet) 5 mg PO HS [facility] Last Admin: 11/17/20 20:31 Dose: 5 mg Documented by: Miscellaneous Information (Pneumonia Protocol Utilized 1 Each Misc) 1 each PO ONCE PRN PRN Reason: Per Protocol Miscellaneous Information (Magnesium Replacement Protocol 1 Each Misc) 1 each MISCELLANE DAILY PRN; Protocol PRN Reason: Per Protocol Pantoprazole Sodium (Pantoprazole 40 Mg Tablet) 40 mg PO DAILY@0600 [facility] Last Admin: 11/17/20 06:03 Dose: 40 mg Documented by: Prednisone (Prednisone 20 Mg Tab) 40 mg PO DAILY [facility] Last Admin: 11/17/20 10:53 Dose: 40 mg Documented by: Rivaroxaban (Rivaroxaban 20 Mg Tab) 20 mg PO DAILY@1700 [facility]; Protocol Last Admin: 11/17/20 17:45 Dose: 20 mg Documented by: Past medical history to include: COPD, stroke with left-sided weakness, home oxygen 3 L, Social history: Patient smoking from the age of 16 up to 2 years ago. One pack a day. No alcohol. Currently at [facility]. Family history: Mother from a ruptured brain aneurysm. Coronary artery disease Physical examination: VITAL SIGNS: 97.5, 94, 17, 126/70, 92% on 4 L GENERAL: Reclining In bed, eating lunch , short of breath very thin built with muscle wasting , tired and short of breath EYES: Pupils equal. Conjunctiva pale. HEENT: External appearance of nose and ears normal, oral cavity grossly normal. Hard of hearing NECK: JVD not raised; masses not palpable. HEART: First and second heart sounds are normal; no edema. LUNGS: Respiratory rate increased; diminished breath sounds ABDOMEN: Soft, nontender, liver spleen not palpable, no masses palpable. PSYCH: Answering questions awake MUSCULAR skeletal: Diffuse wasting of muscles, muscle muscle mass, prominent bones, osteoarthritis NEURO: Left-sided weakness INVESTIGATIONS, reviewed in the clinical context: WBC 22.7 hemoglobin 8.5 platelets 388 potassium 4.2 creatinine 0.3 albumin 2.6 Chest x-ray: Diffuse increased lung markings Sputum culture: MRSA Assessment and plan: -Pneumonia secondary to MRSA IV Zosyn discontinued. Zyvox 600 mg twice a day -Acute exacerbation of advanced prednisone dependent COPD in a previous smoker: Slow to respond DuoNeb 4 times a day, Symbicort 160/4.52 puffs twice a day, increase prednisone to 40 mg -Subacute bilateral pulmonary embolism Continue Xarelto -Questionable lung mass and new pneumatocele Follow pulmonary -Acute on chronic hypoxic respiratory failure from COPD exacerbation: Slow to respond Currently on 4 L of nasal cannula -Moderate protein calorie malnutrition from decreased oral intake Nutritional supplement -Left hemiparesis from prior stroke Patient non-ambulatory -Acute on Chronic medical debility -Essential hypertension Cozaar 25 mg daily -GERD Protonix 40 mg daily -muscular skeletal pain. Primary osteoarthritis [place] 5/500 one tablet every 6 when necessary -DO NOT RESUSCITATE Care discussed with the patient's family at the bedside. Prognosis guarded. On oral Zyvox. On oral prednisone. Plan to discharge in next 24-48 hours.
[2020-11-17 21:20] VITALS: RESP 18
[2020-11-18] MEDS: PANTOPRAZOLE 40 MG TABLET PO SCH (06:24)
[2020-11-18] MEDS: HYDROcodone/APAP 7.5-325MG 1 EACH TAB PO SCH ×2 (06:24→12:00)
[2020-11-18] MEDS: IPRATROPIUM-ALBUTEROL 3 ML NEB INHALATION SCH ×2 (08:35→12:08)
[2020-11-18] MEDS: SYMBICORT 160-4.5 MCG INHALER INHALATION SCH (08:35)
[2020-11-18] MEDS: levETIRAcetam ORAL SOLN 500 MG/5 ML CUP PO SCH (08:57)
[2020-11-18] MEDS: LOSARTAN 25 MG TAB PO SCH (08:57)
[2020-11-18] MEDS: LIDOCAINE 5% PATCH TOPICAL SCH (08:58)
[2020-11-18] MEDS: LINEZOLID 600 MG TAB PO SCH (08:58)
[2020-11-18 09:17] LABS: HCT 24.8 % (37.2-46.3); HGB 7.7 g/dL (12.0-15.0); MCH 28.3 pg (27.0-32.0); MCV 91.2 fL (80.0-97.0); Mean Platelet Volume 10.5 fL (9.5-12.2); Platelet Count 352 X 10*3/uL (140-440); RBC 2.72 X 10*6/uL (4.10-5.20); RDW 16.8 % (11.5-14.5); WBC 29.92 X 10*3/uL (4.50-10.00)
[2020-11-18 10:07] LABS: African American GFR (CKD) 126.2 (60.0-200.0); Anion Gap 8.2 mmol/L (4.00-12.00); BUN/Creat Ratio 63.33 Ratio (12.00-20.00); C Reactive Protein 10.6 mg/dL (0.0-0.8); Calcium 8.4 mg/dL (8.7-10.3); Carbon Dioxide 26.8 mmol/L (21.6-31.8); Non-African American GFR(CKD) 108.9 (60.0-200.0); Potassium 4.8 mmol/L (3.5-5.5)
[2020-11-18 11:58] LABS: Basophils # (A) 0.03 X 10*3/uL (0.00-0.10); Basophils % (A) 0.1 %; Eosinophils # (A) 0.04 X 10*3/uL (0.04-0.35); Eosinophils % (A) 0.1 %; Lymphocytes % (A) 5.3 %; Monocytes # (A) 1.02 X 10*3/uL (0.20-1.00); Monocytes % (A) 3.4 %; Neutrophils # (A) 25.82 X 10*3/uL (1.80-7.70); Neutrophils % (A) 86.4 %
--- NOTE | 2020-11-18 12:48 | P.PN ---
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 Following hospitalization patient was discharged to [facility] at [facility] on 11/09/2020 in stable condition to complete on oral course of Levaquin. Patient was brought back to the hospital per EMS on November for evaluation of acute onset of respi ratory distress. She normally wears 2 L of oxygen on a regular basis, she was requiring 5 L the time of admission to maintain O2 saturations within stable limits. There is also a reported fever at the [facility] with a temp of 10 2F. Patient received breathing treatments at the [facility] and EMS on the way to the hospital, she denies any chest pain, denies any hemoptysis, no dysuria. She was also febrile in the emergency department. Chest x-ray shows emphysematous lungs with new right upper lobe patchy airspace opacity. And there is small left and tiny right pleural effusions. She was tested for COVID-19 was found to be negative. Her sputum culture showed MRSA. Blood culture has shown no growth. Her white blood cell count on admission was 32.8, hemoglobin was 10.1, platelet count was 643, sodium was 133, potassium is 4.5, chloride is 95, CO2 31, BUN is 13, creatinine 0.3, plasma lactic acid was 2.1, AST was 39, ALT was 72, alkaline phosphatase was 272, CK was less than 20, proBNP was 1610, urinalysis showed trace protein, but no clear evidence of infection. Patient has a loose congest ed cough, her fever pattern has improved since admission. She is currently on Zyvox for antibiotic coverage, ID service is following, she is on breathing treatments, and maintenance dose of oral prednisone 10 mg daily. On 11/17/2020 patient seen in follow-up on medical surgical floor, she is breat kalyan easier today, she is on 4 L of oxygen pulse ox of 92%, she's been afebrile overnight, blood pressure has been stable. Patient continues on nebulized bronchodilators, she is on oral prednisone. Patient is currently on oral Zyvox 600 mg every 12 hours. This had no fever or chills overnight. Sputum culture was positive for MRSA. Her sputum sample is also growing presumptive staph aureus and Cinthia albicans. Her white count is improving since admission, it was down to 22.7 on the yesterday's labs. Electrolytes and renal profile were within normal limits. no acute events overnight, no hemoptysis, no chest discomfort. Lung sounds are extremely diminished, without significant rhonchi or wheezing. On today's evaluation on 11/18/2020 patient seen in follow-up on medical surgical floor, she is less congested and wheezy on today's exam, breathing easier, vital signs have been stable, she is currently on Lovenox and pulse ox of 97%, no fever or chills, her serum culture was positive for MRSA and Cinthia albicans, patient is currently on Zyvox for antibiotic coverage, she has been transitioned to oral prednisone, she is on nebulized bronchodilators Objective - Vital Signs Vital signs: Vital Signs Temp 97.2 F L 11/18/20 08:00 Pulse 95 11/18/20 08:51 Resp 18 11/18/20 09:55 BP 140/71 11/18/20 08:00 Pulse Ox 97 11/18/20 08:36 Intake & Output 11/17/20 11/18/20 11/18/20 18:59 06:59 18:59 Intake Total 600 Balance 600 Intake: Oral 600 Other: Voiding Method External Catheter External Catheter # Voids 2 2 # Bowel Movements 1 1 - Exam GENERAL EXAM: Alert, very pleasant, cachectic looking 80-year-old white female, on 4 L of oxygen and pulse ox of 99%, comfortable in no apparent distress. HEAD: Normocephalic/atraumatic. EYES: Normal reaction of pupils, equal size. Conjunctiva pink, sclera white. NOSE: Clear with pink turbinates. THROAT: No erythema or exudates. NECK: No masses, no JVD, no thyroid enlargement, no adenopathy. CHEST: No chest wall deformity. Symmetrical expansion. LUNGS: Equal air entry with diminished breath sounds, frequent cough, loose cough CVS: Regular rate and rhythm, normal S1 and S2, no gallops, no murmurs, no rubs ABDOMEN: Soft, nontender. No hepatosplenomegaly, normal bowel sounds, no guarding or rigidity. EXTREMITIES: No clubbing, no edema, no cyanosis, 2+ pulses and upper and lower extremities. MUSCULOSKELETAL: Muscle strength and tone normal. SPINE: No scoliosis or deformity SKIN: No rashes CENTRAL NERVOUS SYSTEM: Alert and oriented -3. No focal deficits, tone is normal in all 4 extremities. PSYCHIATRIC: Alert and oriented -3. Appropriate affect. Intact judgment and insight. - Labs CBC & Chem 7: 11/18/20 06:06 11/18/20 06:06 Labs: Abnormal Lab Results - Last 24 Hours (Table) 11/18/20 11/18/20 Range/Units 06:06 06:06 WBC 29.92 H (4.50-10.00) X 10*3/uL RBC 2.72 L (4.10-5.20) X 10*6/uL Hgb 7.7 L (12.0-15.0) g/dL Hct 24.8 L (37.2-46.3) % MCHC 31.0 L (32.0-37.0) g/dL RDW 16.8 H (11.5-14.5) % Immature Gran # 1.41 H (0.00-0.04) X 10*3/uL Neutrophils # 25.82 H (1.80-7.70) X 10*3/uL Monocytes # 1.02 H (0.20-1.00) X 10*3/uL Creatinine 0.3 L (0.6-1.5) mg/dL BUN/Creatinine Ratio 63.33 H (12.00-20.00) Ratio Calcium 8.4 L (8.7-10.3) mg/dL C-Reactive Protein 10.6 H (0.0-0.8) mg/dL Microbiology - Last 24 Hours (Table) 11/14/20 09:16 Blood Culture - Preliminary Blood No Growth after 96 hours 11/14/20 23:15 Gram Stain - Final Sputum Sputum Culture - Final Methicillin resist S. aureus Cinthia albicans Assessment and Plan Plan: Assessment: #1. Acute on chronic hypoxic respiratory failure related to acute MRSA related pneumonia, possibly healthcare acquired. Patient is currently on Zyvox. COVID-19 PCR was negative, chest x-ray showed new right upper lobe patchy airspace opacity with a background of emphysematous lungs. And small left and tiny right pleural effusions #2. Recent hospitalization for acute exacerbation of COPD, and urinary tract infection related to enterococcus facaelis, discharge to [facility] on oral 11/09/2020 #3. Previous history of MRSA pneumonia #4. Recent COVID-19 infection in October 2020 #5. Advanced COPD on home oxygen usually on 2 L, with baseline FEV1 of less than 50% of predicted #6. Chronic scarring in the right upper lobe #7. [id number] smoking history, currently in remission #8. Compression fracture of T12 spine with evidence of thoracolumbar k yphoscoliosis #9. Severe cachexia and anorexia syndrome related to advanced COPD #10. History of seizure disorder #11. Chronic anxiety #12. History of pulmonary hypertension likely related to chronic advanced lung disease #13. Poor overall functional performance Plan: Improving breathing, vital signs have been stable No fever or chills, Patient is on Zyvox for evidence of MRSA in the sputum She is on oral prednisone, and nebulized bronchodilators No acute events overnight, and discharge is pending for discharge to ECF today I performed a history & physical examination of the patient and discussed their management with my nurse practitioner, Leni Zarco. I reviewed the nurse practitioner's note and agree with the documented findings and plan of care. Lung sounds are positive for diminished breath sounds throughout the lung atkins. The findings and the impression was discussed with the patient. I attest to the documentation by the nurse practitioner. Time with Patient: Less than 30
--- NOTE | 2020-11-18 14:43 | P.DS ---
Providers Date of admission: 11/14/20 08:25 Expected date of discharge: 11/18/20 Attending physician: Abdulkadir Rodriguez Consults: 11/14/20 09:08 Consult Physician Stat Consulting Provider: Driss Cornelius Consult Reason/Comments: Sepsis, pneumonia, failed outpatient treatment Do you want consulting provider notified?: Yes 11/16/20 12:44 Consult Physician Routine Consulting Provider: Treva Granados Consult Reason/Comments: copd Do you want consulting provider notified?: Yes [facility] care [facility] Course: Chief Complaint: Shortness of breath History of presenting complaint: This is a 80-year-old patient,from [facility]. followed by Dr. Granado. stopped smoking 2 years ago. 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 Has been nonambulatory. in the hospital from October 16 - October 22. Diagnosed with bilateral pulmonary embolism started on xarelto. Bilateral: COVID pneumonia. Not felt to have bacterial pneumonia. COPD exacerbation. Protein calorie malnutrition. Admitted from November 03 through November 09: with acute COPD exacerbation and acute on chronic hypoxic respiratory failure. Questionable pneumonia. With a family meeting was held. Patient was made DO NOT RESUSCITATE. And discussion also about hospice. Now presented with fever of 102, shortness of breath, respiratory distress. [facility] x-ray did confirm pneumonia 11/16/2020: Tired. Slight cough. No sputum. Sputum positive for MRSA. Changed to Zyvox yesterday. Zosyn discontinued. Short of breath. Eating some. 11/17/2020: Reclining in bed. Some cough. Easily short winded. Eating some. Daughter and niece visiting. Pain better control in the left side. I asked for a pillow under the heel. Prognosis guarded. Discussion was reminded about the last admission when no CODE STATUS was initiated and our talk about hospice 11/18/2020: Reclining in bed. Some cough. Eating anywhere from 25-50%. Does easily get short of breath. Discussed with the patient. Prognosis guarded. I'll go with pulmonary to be discharged. go to the [facility]. Discussion and discharge planning more than 35 minutes Consultation: Dr. Granados partners from pulmonary Dr. Cornelius from ID Past medical history to include: COPD, stroke with left-sided weakness, home oxygen 3 L, Social history: Patient smoking from the age of 16 up to 2 years ago. One pack a day. No alcohol. Currently at [facility]. Family history: Mother from a ruptured brain aneurysm. Coronary artery disease Physical examination: VITAL SIGNS: 97.2, 71, 18, 140/71, 100% on room air GENERAL: Reclining In bed, tired, awake very thin built with muscle wasting , tired and short of breath EYES: Pupils equal. Conjunctiva pale. HEENT: External appearance of nose and ears normal, oral cavity grossly normal. Hard of hearing NECK: JVD not raised; masses not palpable. HEART: First and second heart sounds are normal; no edema. LUNGS: Respiratory rate increased; diminished breath sounds ABDOMEN: Soft, nontender, liver spleen not palpable, no masses palpable. PSYCH: Answering questions awake MUSCULAR skeletal: Diffuse wasting of muscles, muscle muscle mass, prominent bones, osteoarthritis NEURO: Left-sided weakness INVESTIGATIONS, reviewed in the clinical context: November 18: Hemoglobin 7.7 potassium 4.8 creatinine 0.3 WBC 22.7 hemoglobin 8.5 platelets 388 potassium 4.2 creatinine 0.3 albumin 2.6 Chest x-ray: Diffuse increased lung markings Sputum culture: MRSA Assessment and plan: -Pneumonia secondary to MRSA IV Zosyn discontinued. Zyvox 600 mg twice a day-7 more days -Acute exacerbation of advanced prednisone dependent COPD in a previous smoker: Bed to DuoNeb 4 times a day, Symbicort 160/4.52 puffs twice a day, oral prednisone -Subacute bilateral pulmonary embolism Continue Xarelto -Questionable lung mass and new pneumatocele Follow pulmonary -Acute on chronic hypoxic respiratory failure from COPD exacerbation: Slow to respond Currently on 4 L of nasal cannula -Moderate protein calorie malnutrition from decreased oral intake Nutritional supplement -Left hemiparesis from prior stroke Patient non-ambulatory -Acute on Chronic medical debility -Essential hypertension Cozaar 25 mg daily -GERD Protonix 40 mg daily -muscular skeletal pain. Primary osteoarthritis [place] 5/500 one tablet every 6 when necessary -DO NOT RESUSCITATE Disposition: [facility] Plan - Discharge Summary New Discharge Prescriptions: New Linezolid [Zyvox] 600 mg PO Q12HR #14 tab Continue Budesonide-Formot 160-4.5 Mcg [Symbicort 160-4.5 Mcg Inhaler] 2 puff INHALATION RT-BID@0800,1700 Sodium Chloride [Saline Nasal [place]] 1 spray EA NOSTRIL Q2H PRN PRN Reason: Congestion Magnesium Hydroxide [Milk of Magnesia Concentrate] 7,200 mg PO DAILY PRN PRN Reason: Constipation Ipratropium-Albuterol Nebulize [Duoneb 0.5 mg-3 mg/3 ml Soln] 3 ml INHALATION RT-Q6H PRN PRN Reason: COVID Na Phos,M-B/Na Phos,Di-Ba [Fleet Adult] 133 ml RECTAL DAILY PRN PRN Reason: Constipation bisacodyL [Dulcolax] 10 mg RECTAL DAILY PRN PRN Reason: Constipation predniSONE 10 mg PO DAILY@0800 Acetaminophen Tab [Tylenol] 500 mg PO Q6HR PRN tab PRN Reason: Fever And/ Or Pain Lactose-Reduced Food [Ensure Plus] 120 ml PO TID@0800,1200,1700 Ipratropium-Albuterol Nebulize [Duoneb 0.5 mg-3 mg/3 ml Soln] 3 ml INHALATION RT-QID levETIRAcetam ORAL SOLN [Keppra Oral Soln] 500 mg PO BID@0800,2100 Pantoprazole [Protonix] 40 mg PO DAILY@0600 Losartan [Cozaar] 25 mg PO DAILY@0800 Cholecalciferol [Vitamin D3 (25 Mcg = 1000 Iu)] 100 mcg PO DAILY@1700 Ascorbic Acid [Vitamin C] 1,000 mg PO DAILY@1700 Menthol/Zinc Oxide [Calmoseptine Ointment] 1 applic TOPICAL BID Melatonin 3 mg PO HS PRN tablet PRN Reason: Insomnia Rivaroxaban [Xarelto] 20 mg PO DAILY@1700 Lidocaine 5% Patch [Lidoderm 5% Patch] 1 patch TOPICAL DAILY@0800 #3 patch ALPRAZolam [Xanax] 0.25 mg PO BID PRN #6 tab PRN Reason: Anxiety Changed HYDROcodone/APAP 5-325MG [[place] 5-325] 1 tab PO Q6H #12 tab Discontinued Loratadine [Claritin] 5 mg PO DAILY@0800 HYDROcodone/APAP 5-325MG [[place] 5-325] 1 tab PO DAILY PRN PRN Reason: Pain Discharge Medication List Budesonide-Formot 160-4.5 Mcg [Symbicort 160-4.5 Mcg Inhaler] 2 puff INHALATION RT-BID@0800,1700 06/28/19 [History] Ipratropium-Albuterol Nebulize [Duoneb 0.5 mg-3 mg/3 ml Soln] 3 ml INHALATION RT-Q6H PRN 10/16/20 [History] Ipratropium-Albuterol Nebulize [Duoneb 0.5 mg-3 mg/3 ml Soln] 3 ml INHALATION RT-QID 10/16/20 [History] Lactose-Reduced Food [Ensure Plus] 120 ml PO TID@0800,1200,1700 10/16/20 [History] Losartan [Cozaar] 25 mg PO DAILY@0810/16/20 [History] Magnesium Hydroxide [Milk of Magnesia Concentrate] 7,200 mg PO DAILY PRN 10/16/20 [History] Na Phos,M-B/Na Phos,Di-Ba [Fleet Adult] 133 ml RECTAL DAILY PRN 10/16/20 [History] Pantoprazole [Protonix] 40 mg PO DAILY@0610/16/20 [History] Sodium Chloride [Saline Nasal [place]] 1 spray EA NOSTRIL Q2H PRN 10/16/20 [Histor y] bisacodyL [Dulcolax] 10 mg RECTAL DAILY PRN 10/16/20 [History] levETIRAcetam ORAL SOLN [Keppra Oral Soln] 500 mg PO BID@0800,2100 10/16/20 [History] predniSONE 10 mg PO DAILY@0800 10/16/20 [History] Acetaminophen Tab [Tylenol] 500 mg PO Q6HR PRN tab 10/22/20 [Rx] Ascorbic Acid [Vitamin C] 1,000 mg PO DAILY@17011/03/20 [History] Cholecalciferol [Vitamin D3 (25 Mcg = 1000 Iu)] 100 mcg PO DAILY@169911/03/20 [History] Menthol/Zinc Oxide [Calmoseptine Ointment] 1 applic TOPICAL BID 11/03/20 [History] Melatonin 3 mg PO HS PRN tablet 11/09/20 [Rx] Rivaroxaban [Xarelto] 20 mg PO DAILY@1700 11/14/20 [History] ALPRAZolam [Xanax] 0.25 mg PO BID PRN #6 tab 11/18/20 [Rx] HYDROcodone/APAP 5-325MG [[place] 5-325] 1 tab PO Q6H #12 tab 11/18/20 [Rx] Lidocaine 5% Patch [Lidoderm 5% Patch] 1 patch TOPICAL DAILY@0800 #3 patch 11/18/20 [Rx] Linezolid [Zyvox] 600 mg PO Q12HR #14 tab 11/18/20 [Rx] Follow up Appointment(s)/Referral(s): Jabari Granado DO [Primary Care Provider] - 1-2 days Dustin Corrales, [NON-STAFF] - As Needed
[2020-11-18 15:40] VITALS: BP 155/79; PULSE 87; TEMP 99.4
--- NOTE | 2020-11-18 17:25 | PN ---
PROGRESS NOTE DATE OF SERVICE: 11/18/2020 REASON FOR FOLLOWUP: MRSA pneumonia. INTERVAL HISTORY: Patient is afebrile. The patient is breathing comfortably. Denies having any chest pain, shortness of breath. Patient did have a cough with greenish sputum. No vomiting. No abdominal pain or diarrhea. PHYSICAL EXAMINATION: Blood pressure 155/79 with a pulse of 80, temperature 98.4. She is 97% on 4 L nasal cannula. General description is an elderly female up in the bed in no distress. Respiratory system: Unlabored breathing, decreased intensity in breath sounds. No wheeze. Heart S1, S2. Regular rate and rhythm. Abdomen soft. No tenderness. LABS: Hemoglobin 7.8, white count 9.92, creatinine . DIAGNOSTIC IMPRESSION AND PLAN: Patient admitted to the hospital with pneumonia. Sputum has been MRSA. Patient to continue with Zyvox for another 7 to 10 days, finish course of therapy with close outpatient followup. MMODL / IJN: [id number] /
== END 2020-11-18 16:09 | DRG 871 ==
LOC: EC 06:49 → 4SSUR 08:25
PROVIDERS: ADMIT Hospitalist; ATTEND Hospitalist
DX: A41.02 Sepsis due to Methicillin resistant Staphylococcus aureus (principal); J15.212 Pneumonia due to Methicillin resistant Staphylococcus aureus; J69.0 Pneumonitis due to inhalation of food and vomit; J96.21 Acute and chronic respiratory failure with hypoxia; R64 Cachexia; E44.0 Moderate protein-calorie malnutrition; I69.354 Hemiplegia and hemiparesis following cerebral infarction affecting left non-dominant side; M48.54XA Collapsed vertebra, not elsewhere classified, thoracic region, initial encounter for fracture; I27.23 Pulmonary hypertension due to lung diseases and hypoxia; Z99.81 Dependence on supplemental oxygen; J43.9 Emphysema, unspecified; G40.909 Epilepsy, unspecified, not intractable, without status epilepticus; Z66 Do not resuscitate; Z20.822 Contact with and (suspected) exposure to COVID-19; I10 Essential (primary) hypertension; J98.4 Other disorders of lung; K21.9 Gastro-esophageal reflux disease without esophagitis; M19.91 Primary osteoarthritis, unspecified site; M62.50 Muscle wasting and atrophy, not elsewhere classified, unspecified site; F41.9 Anxiety disorder, unspecified; H91.90 Unspecified hearing loss, unspecified ear; Z79.51 Long term (current) use of inhaled steroids; Z79.52 Long term (current) use of systemic steroids; Z79.01 Long term (current) use of anticoagulants; Z79.891 Long term (current) use of opiate analgesic; Z79.899 Other long term (current) drug therapy; Z86.16 Personal history of COVID-19; Z86.14 Personal history of Methicillin resistant Staphylococcus aureus infection; Z98.42 Cataract extraction status, left eye; Z98.41 Cataract extraction status, right eye; Z90.89 Acquired absence of other organs; Z90.49 Acquired absence of other specified parts of digestive tract; Z87.891 Personal history of nicotine dependence; Z87.01 Personal history of pneumonia (recurrent); Z86.711 Personal history of pulmonary embolism; Z87.440 Personal history of urinary (tract) infections; Z98.890 Other specified postprocedural states; Z88.6 Allergy status to analgesic agent; Z82.49 Family history of ischemic heart disease and other diseases of the circulatory system; Z83.3 Family history of diabetes mellitus; Z80.52 Family history of malignant neoplasm of bladder; Y95 Nosocomial condition
CPT/HCPCS: 36415; 71046; 80048; 80053; 80076; 81003; 82550; 83605; 83735; 83880; 84484; 85025; 85610; 85730; 86140; 87040; 87070; 87077; 87186; 87205; 87635; 93005; 94640; 94760; 96361; 96374; 99285

== ENCOUNTER 2020-11-28 14:38 | Observation (INO) | payer MEDICARE, BC ==
--- NOTE | 2020-11-28 15:46 | ED ---
Recheck HPI - General Chief Complaint: Recheck/Abnormal Lab/Rx Stated Complaint: Abd Labs Time Seen by Provider: 11/28/20 15:21 Source: patient, EMS Mode of arrival: EMS - History of Present Illness Initial Comments: Patient is a 80-year-old female with history of COPD, normally on 3 L of home O2, anemia, CVA, presenting to the emergency department via EMS from [facility] for low hemoglobin. Patient has no specific complaints today. She denies any chest pain or more shortness of breath than usual. She denies any dizziness or lightheadedness, no abdominal pain, no nausea or vomiting. She states she is unsure why she is here. Patient's hemoglobin was checked yesterday and it was reported at 6.7. She denies any blood in her stools that she is aware of for she states she does wear a diaper and is unsure. She denies any dysuria or hematuria. She has no further complaints at this time. Upon arrival to the ER, her vitals are stable. - Related Data Home Medications Medication Instructions Recorded Confirmed Budesonide-Formot 160-4.5 Mcg 2 puff INHALATION RT-BID@0800,1700 06/28/19 11/28/20 [Symbicort 160-4.5 Mcg Inhaler] Ipratropium-Albuterol Nebulize 3 ml INHALATION RT-QID 10/16/20 11/28/20 [Duoneb 0.5 mg-3 mg/3 ml Soln] Ipratropium-Albuterol Nebulize 3 ml INHALATION RT-QID PRN 10/16/20 11/28/20 [Duoneb 0.5 mg-3 mg/3 ml Soln] Lactose-Reduced Food [Ensure Plus] 120 ml PO TID@0800,1200,1700 10/16/20 1 Losartan [Cozaar] 25 mg PO DAILY@0800 10/16/20 11/28/20 Magnesium Hydroxide [Milk of 7,200 mg PO DAILY PRN 10/16/20 11/28/20 Magnesia Concentrate] Na Phos,M-B/Na Phos,Di-Ba [Fleet 133 ml RECTAL DAILY PRN 10/16/20 11/28/20 Adult] Pantoprazole [Protonix] 40 mg PO DAILY@0600 10/16/20 11/28/20 Sodium Chloride [Saline Nasal 1 spray EA NOSTRIL Q2H PRN 10/16/20 11/28/20 [place]] bisacodyL [Dulcolax] 10 mg RECTAL DAILY PRN 10/16/20 11/28/20 levETIRAcetam ORAL SOLN [Keppra 500 mg PO BID@0800,2100 10/16/20 11/28/20 Oral Soln] predniSONE 10 mg PO DAILY@0800 10/16/20 11/28/20 Cholecalciferol [Vitamin D3 (25 100 mcg PO DAILY@1700 11/03/20 11/28/20 Mcg = 1000 Iu)] Menthol/Zinc Oxide [Calmoseptine 1 applic TOPICAL BID 11/03/20 11/28/20 Ointment] Rivaroxaban [Xarelto] 20 mg PO DAILY@1700 11/14/20 11/28/20 Ascorbic Acid [Vitamin C] 500 mg PO DAILY@1700 11/28/20 11/28/20 Lidocaine 5% Patch [Lidoderm 5% 1 patch TRANSDERM DAILY@0811/28/20 11/28/20 Patch] Previous Rx's Medication Instructions Recorded Acetaminophen Tab [Tylenol] 500 mg PO Q6HR PRN tab 10/22/20 Melatonin 3 mg PO HS PRN tablet 11/09/20 ALPRAZolam [Xanax] 0.25 mg PO BID PRN #6 tab 11/18/20 HYDROcodone/APAP 5-325MG [[place] 1 tab PO Q6H #12 tab 11/18/20 5-325] Allergies Allergy/AdvReac Type Severity Reaction Status Date / Time aspirin AdvReac excessive Verified 11/28/20 15:58 brusing Review of Systems ROS Statement: Those systems with pertinent positive or pertinent negative responses have been documented in the HPI. ROS Other: All systems not noted in ROS Statement are negative. Past Medical History Past Medical History: COPD, CVA/TIA, Pneumonia, Respiratory Disorder Additional Past Medical History / Comment(s): cataracts(sx done), "bruises easily-thin fragile skin", lower dental bridge, CVA September, Covid 10/2020 History of Any Multi-Drug Resistant Organisms: MRSA Date of last positivie culture/infection: 11/14/20 MDRO Source:: MRSA SPUTUM Past Surgical History: Appendectomy, Tonsillectomy Additional Past Surgical History / Comment(s): Bilateral cataracts Past Anesthesia/Blood Transfusion Reactions: No Reported Reaction Past Psychological History: Anxiety Smoking Status: Former smoker Past Alcohol Use History: None Reported Past Drug Use History: None Reported - Past Family History Mother Family Medical History: Myocardial Infarction ([place]) Additional Family Medical History / Comment(s): Mother from a ruptured brain aneurysm, history of a heart attack Father Family Medical History: Diabetes Mellitus Additional Family Medical History / Comment(s): "heart problems" Father from bladder cancer , General Exam - General Exam Comments Initial Comments: GENERAL: Patient is well-developed and well-nourished. Patient is nontoxic and in no acute distress. HEAD: Atraumatic, normocephalic. EYES: Pupils equal round and reactive to light, extraocular movements intact, sclera anicteric, conjunctiva are normal. Eyelids were unremarkable. ENT: TMs normal, nares patent, oropharynx clear without exudates. Moist mucous membranes. NECK: Normal range of motion, supple without lymphadenopathy or JVD. LUNGS: Unlabored respirations. Breath sounds clear to auscultation bilaterally and equal. No wheezes rales or rhonchi. HEART: Regular rate and rhythm without murmurs, rubs or gallops. ABDOMEN: Soft, nontender, normoactive bowel sounds. No guarding, no rebound. No masses appreciated. : Deferred MUSCULOSKELETAL: Normal extremities with adequate strength and normal range of motion, no pitting or edema. No clubbing or cyanosis. NEUROLOGICAL: Patient is alert and oriented x 3. Motor and sensory are also intact. Cranial nerves II through XII grossly intact. Symmetrical smile. Normal speech. PSYCH: Normal mood, normal affect. SKIN: Warm, Dry, normal turgor, no rashes or lesions noted. Course Vital Signs 11/28/20 15:21 Temperature 98.0 F Pulse Rate 111 H Respiratory 16 Rate Blood Pressure 116/63 O2 Sat by Pulse 98 Oximetry Medical Decision Making - Medical Decision Making Patient is a 80-year-old female with history of COPD, on home O2 at 3 L, CVA, anemia, presenting from [facility] for low hemoglobin. Hemoglobin was checked yesterday was found to be at 6.7. She has no complaints today, her vitals are stable. Labs today show a hemoglobin of 7.0, rest of labs are stable, stool occult is negative, rapid Covid is negative. Patient did arrive slightly tachycardia at 112, we will order 1 unit of blood and admit the patient to obse rvation. Will recheck her hemoglobin the morning. Dr. Rodriguez is accepting. Case discussed with Dr. Fields. - Lab Data Result diagrams: 11/28/20 15:57 11/28/20 15:57 Lab Results 11/28/20 11/28/20 11/28/20 Range/Units 15:57 15:57 15:57 WBC 17.8 H (3.8-10.6) k/uL RBC 2.52 L (3.80-5.40) m/uL Hgb 7.0 L D (11.4-16.0) gm/dL Hct 21.8 L (34.0-46.0) % MCV 86.5 (80.0-100.0) fL MCH 27.9 (25.0-35.0) pg MCHC 32.3 (31.0-37.0) g/dL RDW 16.3 H (11.5-15.5) % Plt Count 553 H (150-450) k/uL MPV 6.8 Neutrophils % 90 % Lymphocytes % 4 % Monocytes % 3 % Eosinophils % 1 % Basophils % 0 % Neutrophils # 16.1 H (1.3-7.7) k/uL Lymphocytes # 0.7 L (1.0-4.8) k/uL Monocytes # 0.6 (0-1.0) k/uL Eosinophils # 0.1 (0-0.7) k/uL Basophils # 0.1 (0-0.2) k/uL Anisocytosis Slight PT 11.5 (9.0-12.0) sec INR 1.1 (<1.2) APTT 21.4 L (22.0-30.0) sec Sodium (137-145) mmol/L Potassium (3.5-5.1) mmol/L Chloride (98-107) mmol/L Carbon Dioxide (22-30) mmol/L Anion Gap mmol/L BUN (7-17) mg/dL Creatinine (0.52-1.04) mg/dL Est GFR (CKD-EPI)AfAm (>60 ml/min/1.73 sqM) Est GFR (CKD-EPI)NonAf (>60 ml/min/1.73 sqM) Glucose (74-99) mg/dL Calcium (8.4-10.2) mg/dL Total Bilirubin (0.2-1.3) mg/dL AST (14-36) U/L ALT (4-34) U/L Alkaline Phosphatase (38-126) U/L Total Protein (6.3-8.2) g/dL Albumin (3.5-5.0) g/dL Stool Occult Blood Negative (Negative) Coronavirus (PCR) (Not Detectd) Blood Type Blood Type Confirm Blood Type Recheck Bld Type Recheck Status Antibody Screen Crossmatch Spec Expiration Date 11/28/20 11/28/20 11/28/20 Range/Units 15:57 16:00 16:07 WBC (3.8-10.6) k/uL RBC (3.80-5.40) m/uL Hgb (11.4-16.0) gm/dL Hct (34.0-46.0) % MCV (80.0-100.0) fL MCH (25.0-35.0) pg MCHC (31.0-37.0) g/dL RDW (11.5-15.5) % Plt Count (150-450) k/uL MPV Neutrophils % % Lymphocytes % % Monocytes % % Eosinophils % % Basophils % % Neutrophils # (1.3-7.7) k/uL Lymphocytes # (1.0-4.8) k/uL Monocytes # (0-1.0) k/uL Eosinophils # (0-0.7) k/uL Basophils # (0-0.2) k/uL Anisocytosis PT (9.0-12.0) sec INR (<1.2) APTT (22.0-30.0) sec Sodium 136 L (137-145) mmol/L Potassium 4.2 (3.5-5.1) mmol/L Chloride 101 (98-107) mmol/L Carbon Dioxide 29 (22-30) mmol/L Anion Gap 6 mmol/L BUN 18 H (7-17) mg/dL Creatinine 0.36 L (0.52-1.04) mg/dL Est GFR (CKD-EPI)AfAm >90 (>60 ml/min/1.73 sqM) Est GFR (CKD-EPI)NonAf >90 (>60 ml/min/1.73 sqM) Glucose 119 H (74-99) mg/dL Calcium 9.2 (8.4-10.2) mg/dL Total Bilirubin 0.3 (0.2-1.3) mg/dL AST 18 (14-36) U/L ALT 13 (4-34) U/L Alkaline Phosphatase 85 (38-126) U/L Total Protein 5.7 L (6.3-8.2) g/dL Albumin 2.6 L (3.5-5.0) g/dL Stool Occult Blood (Negative) Coronavirus (PCR) (Not Detectd) Blood Type A Positive Blood Type Confirm A Positive Blood Type Recheck No Previous Record Bld Type Recheck Status CABO Indicated Antibody Screen NEGATIVE Crossmatch See Detail Spec Expiration Date 12/01/2020 - 230611/28/20 Range/Units 16:57 WBC (3.8-10.6) k/uL RBC (3.80-5.40) m/uL Hgb (11.4-16.0) gm/dL Hct (34.0-46.0) % MCV (80.0-100.0) fL MCH (25.0-35.0) pg MCHC (31.0-37.0) g/dL RDW (11.5-15.5) % Plt Count (150-450) k/uL MPV Neutrophils % % Lymphocytes % % Monocytes % % Eosinophils % % Basophils % % Neutrophils # (1.3-7.7) k/uL Lymphocytes # (1.0-4.8) k/uL Monocytes # (0-1.0) k/uL Eosinophils # (0-0.7) k/uL Basophils # (0-0.2) k/uL Anisocytosis PT (9.0-12.0) sec INR (<1.2) APTT (22.0-30.0) sec Sodium (137-145) mmol/L Potassium (3.5-5.1) mmol/L Chloride (98-107) mmol/L Carbon Dioxide (22-30) mmol/L Anion Gap mmol/L BUN (7-17) mg/dL Creatinine (0.52-1.04) mg/dL Est GFR (CKD-EPI)AfAm (>60 ml/min/1.73 sqM) Est GFR (CKD-EPI)NonAf (>60 ml/min/1.73 sqM) Glucose (74-99) mg/dL Calcium (8.4-10.2) mg/dL Total Bilirubin (0.2-1.3) mg/dL AST (14-36) U/L ALT (4-34) U/L Alkaline Phosphatase (38-126) U/L Total Protein (6.3-8.2) g/dL Albumin (3.5-5.0) g/dL Stool Occult Blood (Negative) Coronavirus (PCR) Not Detected (Not Detectd) Blood Type Blood Type Confirm Blood Type Recheck Bld Type Recheck Status Antibody Screen Crossmatch Spec Expiration Date Disposition Clinical Impression: Anemia Disposition: ADMITTED IP TO THIS [facility] Condition: Stable Referrals: Jabari Granado DO [Primary Care Provider] - 1-2 days Decision Date: 11/28/20 Decision Time: 17:39
[2020-11-28 16:27] LABS: Anisocytosis Slight; Basophils # (A) 0.1 k/uL (0-0.2); Basophils % (A) 0 %; Eosinophils # (A) 0.1 k/uL (0-0.7); Eosinophils % (A) 1 %; HCT 21.8 % (34.0-46.0); Lymphocytes # (A) 0.7 k/uL (1.0-4.8); Lymphocytes % (A) 4 %; MCH 27.9 pg (25.0-35.0); MCHC 32.3 g/dL (31.0-37.0); MCV 86.5 fL (80.0-100.0); Mean Platelet Volume 6.8; Monocytes # (A) 0.6 k/uL (0-1.0); Monocytes % (A) 3 %; Neutrophils # (A) 16.1 k/uL (1.3-7.7); Neutrophils % (A) 90 %; Platelet Count 553 k/uL (150-450); RBC 2.52 m/uL (3.80-5.40); RDW 16.3 % (11.5-15.5); WBC 17.8 k/uL (3.8-10.6)
[2020-11-28 16:39] LABS: ALT 13 U/L (4-34); AST 18 U/L (14-36); African American GFR (CKD) >90 (>60 ml/min/1.73 sqM); Albumin 2.6 g/dL (3.5-5.0); Alkaline Phosphatase 85 U/L (38-126); Anion Gap 6 mmol/L; Blood Urea Nitrogen 18 mg/dL (7-17); Calcium 9.2 mg/dL (8.4-10.2); Carbon Dioxide 29 mmol/L (22-30); Chloride 101 mmol/L (98-107); Glucose 119 mg/dL (74-99); Non-African American GFR(CKD) >90 (>60 ml/min/1.73 sqM); Potassium 4.2 mmol/L (3.5-5.1); Sodium 136 mmol/L (137-145); Total Bilirubin 0.3 mg/dL (0.2-1.3); Total Protein 5.7 g/dL (6.3-8.2)
[2020-11-28 16:58] LABS: INR 1.1 (<1.2); Prothrombin Time 11.5 sec (9.0-12.0)
[2020-11-28 17:00] LABS: Partial Thromboplastin Time 21.4 sec (22.0-30.0)
[2020-11-28] MEDS ORDERED: ONDANSETRON 4 MG/2 ML VIAL IVP PRN (17:37)
[2020-11-28] MEDS ORDERED: ACETAMINOPHEN TAB 325 MG TAB PO PRN (17:37)
[2020-11-28] MEDS ORDERED: NALOXONE 0.4 MG/ML 1 ML VIAL IV PRN (17:37)
[2020-11-28] MEDS ORDERED: HYDROcodone/APAP 7.5-325MG 1 EACH TAB PO PRN (18:34)
[2020-11-28] MEDS ORDERED: MELATONIN 5 MG TABLET PO SCH (21:00)
[2020-11-28] MEDS ORDERED: ACETAMINOPHEN TAB 500 MG TAB PO PRN (23:05)
[2020-11-28] MEDS ORDERED: MAGNESIUM HYDROXIDE 2,400 MG/10 ML CUP PO PRN (23:05)
[2020-11-28] MEDS ORDERED: bisacodyL 10 MG SUPP RECTAL PRN (23:05)
[2020-11-28] MEDS ORDERED: MELATONIN 3 MG TABLET PO PRN (23:05)
[2020-11-28] MEDS ORDERED: IPRATROPIUM-ALBUTEROL 3 ML NEB INHALATION PRN (23:05)
[2020-11-28] MEDS ORDERED: NA PHOS,M-B/NA PHOS,DI-BA 133 ML ENEMA RECTAL PRN (23:05)
[2020-11-28] MEDS ORDERED: ALPRAZolam 0.25 MG TAB PO PRN (23:05)
[2020-11-28] MEDS: HYDROcodone/APAP 5-325MG 1 EACH TAB PO SCH (23:35)
[2020-11-29] MEDS ORDERED: SODIUM CHLORIDE 0.65% NASAL SPRAY 44 ML BTL INTRANASAL PRN (02:00)
[2020-11-29 02:25] VITALS: TEMP 98
[2020-11-29] MEDS: HYDROcodone/APAP 5-325MG 1 EACH TAB PO SCH ×2 (05:31→13:01)
[2020-11-29] MEDS ORDERED: PANTOPRAZOLE 40 MG TABLET PO SCH (06:00)
[2020-11-29 07:08] VITALS: BP 151/72; RESP 16
[2020-11-29] MEDS ORDERED: LIDOCAINE 5% PATCH TOPICAL SCH (08:00)
[2020-11-29] MEDS ORDERED: LOSARTAN 25 MG TAB PO SCH (08:00)
[2020-11-29] MEDS ORDERED: SYMBICORT 160-4.5 MCG INHALER INHALATION SCH (08:00)
[2020-11-29] MEDS ORDERED: levETIRAcetam ORAL SOLN 500 MG/5 ML CUP PO SCH (08:00)
[2020-11-29] MEDS ORDERED: NON FORMULARY DRUG (Lactose-Reduced Food [Ensure Plus] 237 ML Liquid) PO SCH (08:00)
[2020-11-29] MEDS ORDERED: predniSONE 10 MG TAB PO SCH (08:00)
[2020-11-29] MEDS: IPRATROPIUM-ALBUTEROL 3 ML NEB INHALATION SCH ×2 (08:01→12:11)
[2020-11-29] MEDS ORDERED: MENTHOL-ZINC OXIDE OINT 113 GM TUBE TOPICAL SCH (09:00)
[2020-11-29 12:41] VITALS: PULSE 80
[2020-11-29 13:20] LABS: Anisocytosis Slight; Hypochromasia Slight; MCH 26.9 pg (25.0-35.0); MCHC 31.4 g/dL (31.0-37.0); MCV 85.8 fL (80.0-100.0); Mean Platelet Volume 6.9; Platelet Count 485 k/uL (150-450); RBC 3.73 m/uL (3.80-5.40); RDW 18.4 % (11.5-15.5); WBC 17.4 k/uL (3.8-10.6)
[2020-11-29 13:51] VITALS: BMI 14.6
--- NOTE | 2020-11-29 13:53 | P.HPIM ---
History of Present Illness H&P Date: 11/29/20 Chief Complaint: Low hemoglobin History of presenting complaint: This is a pleasant 80-year-old patient,from [facility]. followed by Dr. Granado. stopped smoking 2 years ago. 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 Has been nonambulatory. Bilateral pulmonary embolism in October 2020 on xarelto, bilateral COVID pneumonia. DO NOT RESUSCITATE Patient was sent in from the [facility] with a hemoglobin of 6.7. A bit tired. Denies any black stools. Does not like the food at [facility]. Decreased oral intake. Just a and rundown. Baseline shortness of breath. No fever no chills. Patient's and daughter the bedside. Patient was given 1 unit of blood. Review of systems: GEN.: Tired EYES: None HEENT: Decreased hearing NECK: None RESPIRATORY: Baseline shortness of breath CARDIOVASCULAR: None GASTROINTESTINAL: None GENITOURINARY: None MUSCULOSKELETAL: Chronic joint pains LYMPHATICS: None HEMATOLOGICAL: None PSYCHIATRY: A bit forgetful and anxious NEUROLOGICAL: None Past medical history to include: COPD, stroke with left-sided weakness, home oxygen 3 L, bilateral pulmonary embolism, protein calorie malnutrition Social history: Patient smoking from the age of 16 up to 2019. One pack a day. No alcohol. Currently at [facility]. Family history: Mother from a ruptured brain aneurysm. Coronary artery disease Physical examination: VITAL SIGNS: 98, 11, 16, 116/63, 98% on 3 L upon presentation GENERAL: Reclining In chair, tired, awake very thin built with muscle wasting , tired and short of breath EYES: Pupils equal. Conjunctiva pale. HEENT: External appearance of nose and ears normal, oral cavity grossly normal. Hard of hearing NECK: JVD not raised; masses not palpable. HEART: First and second heart sounds are normal; no edema. LUNGS: Respiratory rate increased; diminished breath sounds ABDOMEN: Soft, nontender, liver spleen not palpable, no masses palpable. PSYCH: Answering simple questions, awake, anxious MUSCULAR skeletal: Diffuse wasting of muscles, muscle muscle mass, prominent bones, osteoarthritis NEURO: Left-sided weakness INVESTIGATIONS, reviewed in the clinical context: November 29: Hemoglobin 10 White count 17.8 hemoglobin 7 platelets 553 potassium 4.2 BUN 18 creatinine 0.36 albumin 2.6 Assessment and plan: -Acute on chronic exacerbation of anemia of chronic disease. Symptomatic. Tired Transfuse 1 unit of blood -Chronic advanced prednisone dependent COPD in a previous smoker: DuoNeb 4 times a day, Symbicort 160/4.52 puffs twice a day, prednisone 10 mg daily -Subacute bilateral pulmonary embolism Continue Xarelto -Questionable lung mass and new pneumatocele Follow pulmonary -chronic hypoxic respiratory failure from COPD exacerbation: 3 L nasal cannula -Moderate protein calorie malnutrition from decreased oral intake Nutritional supplement -Left hemiparesis from prior stroke Patient non-ambulatory -Chronic medical debility -Essential hypertension Cozaar 25 mg daily -GERD Protonix 40 mg daily -muscular skeletal pain. Primary osteoarthritis [place] 5/500 one tablet every 6 when necessary -DO NOT RESUSCITATE Care was discussed with the and daughter the bedside. They do understand overall prognosis is guarded. There is no evidence of outward bleeding. Stool occult was negative. Patient has received 1 unit of blood. Home medications resumed Past Medical History Past Medical History: COPD, CVA/TIA, Pneumonia, Respiratory Disorder Additional Past Medical History / Comment(s): cataracts(sx done), "bruises easily-thin fragile skin", lower dental bridge, CVA September, Covid 10/2020 History of Any Multi-Drug Resistant Organisms: MRSA Date of last positivie culture/infection: 11/14/20 MDRO Source:: MRSA SPUTUM Past Surgical History: Appendectomy, Tonsillectomy Additional Past Surgical History / Comment(s): Bilateral cataracts Past Anesthesia/Blood Transfusion Reactions: No Reported Reaction Past Psychological History: Anxiety Smoking Status: Former smoker Past Alcohol Use History: None Reported Additional Past Alcohol Use History / Comment(s): started smoking age 16 smoked 1 ppd, states stopped in 2018 Past Drug Use History: None Reported - Past Family History Mother Family Medical History: Myocardial Infarction ([place]) Additional Family Medical History / Comment(s): Mother from a ruptured brain aneurysm, history of a heart attack Father Family Medical History: Diabetes Mellitus Additional Family Medical History / Comment(s): "heart problems" Father from bladder cancer , Medications and Allergies Home Medications Medication Instructions Recorded Confirmed Type Budesonide-Formot 160-4.5 Mcg 2 puff INHALATION RT-BID@0800,1700 06/28/19 11/28/20 History [Symbicort 160-4.5 Mcg Inhaler] Ipratropium-Albuterol Nebulize 3 ml INHALATION RT-QID 10/16/20 11/28/20 History [Duoneb 0.5 mg-3 mg/3 ml Soln] Ipratropium-Albuterol Nebulize 3 ml INHALATION RT-QID PRN 10/16/20 11/28/20 History [Duoneb 0.5 mg-3 mg/3 ml Soln] Lactose-Reduced Food [Ensure Plus] 120 ml PO TID@0800,1200,1700 10/16/20 11/28/20 History Losartan [Cozaar] 25 mg PO DAILY@0800 10/16/20 11/28/20 History Magnesium Hydroxide [Milk of 7,200 mg PO DAILY PRN 10/16/20 11/28/20 History Magnesia Concentrate] Na Phos,M-B/Na Phos,Di-Ba [Fleet 133 ml RECTAL DAILY PRN 10/16/20 11/28/20 History Adult] Pantoprazole [Protonix] 40 mg PO DAILY@0600 10/16/20 11/28/20 History Sodium Chloride [Saline Nasal 1 spray EA NOSTRIL Q2H PRN 10/16/20 11/28/20 History [place]] bisacodyL [Dulcolax] 10 mg RECTAL DAILY PRN 10/16/20 11/28/20 History levETIRAcetam ORAL SOLN [Keppra 500 mg PO BID@0800,2100 10/16/20 11/28/20 History Oral Soln] predniSONE 10 mg PO DAILY@0800 10/16/20 11/28/20 History Acetaminophen Tab [Tylenol] 500 mg PO Q6HR PRN tab 10/22/20 11/28/20 Rx Cholecalciferol [Vitamin D3 (25 100 mcg PO DAILY@1700 11/03/20 11/28/20 History Mcg = 1000 Iu)] Menthol/Zinc Oxide [Calmoseptine 1 applic TOPICAL BID 11/03/20 11/28/20 History Ointment] Melatonin 3 mg PO HS PRN tablet 11/09/20 11/28/20 Rx Rivaroxaban [Xarelto] 20 mg PO DAILY@1700 11/14/20 11/28/20 History ALPRAZolam [Xanax] 0.25 mg PO BID PRN #6 tab 11/18/20 11/28/20 Rx HYDROcodone/APAP 5-325MG [[place] 1 tab PO Q6H #12 tab 11/18/20 11/28/20 Rx 5-325] Ascorbic Acid [Vitamin C] 500 mg PO DAILY@1700 11/28/20 11/28/20 History Lidocaine 5% Patch [Lidoderm 5% 1 patch TRANSDERM DAILY@0800 11/28/20 11/28/20 History Patch] Allergies Allergy/AdvReac Type Severity Reaction Status Date / Time aspirin AdvReac excessive Verified 11/28/20 15:58 brusing Physical Exam Vitals: Vital Signs Temp Pulse Pulse Resp BP BP Pulse Ox 11/29/20 08:19 77 11/29/20 08:04 76 11/29/20 08:00 76 16 11/29/20 07:00 98 F 76 16 151/72 100 11/29/20 02:00 98 F 69 18 147/74 100 11/28/20 22:06 97.6 F 80 12 160/77 99 11/28/20 21:56 97.6 F 82 12 181/93 99 11/28/20 21:00 12 11/28/20 20:00 97.9 F 90 18 173/94 11/28/20 19:00 97.8 F 92 16 167/73 99 11/28/20 18:45 97.9 F 90 16 154/84 99 11/28/20 18:35 98 F 92 18 161/80 99 11/28/20 18:30 98.0 F 90 17 167/81 99 11/28/20 18:24 97.8 F 89 17 150/78 99 11/28/20 18:20 97.9 F 98 18 159/80 99 11/28/20 15:21 98.0 F 111 H 16 116/63 98 Intake and Output 11/28/20 11/29/20 11/29/20 22:59 06:59 14:59 Intake Total 310 120 Balance 310 120 Intake: Oral 120 Blood Product 310 Rc As-1 Unit 310 [id number] Other: Voiding Method External Catheter External Catheter External Catheter # Voids 1 0 # Bowel Movements 1 1 Weight 36.287 kg Results CBC & Chem 7: 11/29/20 12:34 11/28/20 15:57 Labs: Abnormal Lab Results - Last 24 Hours (Table) 11/28/20 11/28/20 11/28/20 Range/Units 15:57 15:57 15:57 WBC 17.8 H (3.8-10.6) k/uL RBC 2.52 L (3.80-5.40) m/uL Hgb 7.0 L D (11.4-16.0) gm/dL Hct 21.8 L (34.0-46.0) % RDW 16.3 H (11.5-15.5) % Plt Count 553 H (150-450) k/uL Neutrophils # 16.1 H (1.3-7.7) k/uL Lymphocytes # 0.7 L (1.0-4.8) k/uL APTT 21.4 L (22.0-30.0) sec Sodium 136 L (137-145) mmol/L BUN 18 H (7-17) mg/dL Creatinine 0.36 L (0.52-1.04) mg/dL Glucose 119 H (74-99) mg/dL Total Protein 5.7 L (6.3-8.2) g/dL Albumin 2.6 L (3.5-5.0) g/dL Crossmatch 11/28/20 Range/Units 16:07 WBC (3.8-10.6) k/uL RBC (3.80-5.40) m/uL Hgb (11.4-16.0) gm/dL Hct (34.0-46.0) % RDW (11.5-15.5) % Plt Count (150-450) k/uL Neutrophils # (1.3-7.7) k/uL Lymphocytes # (1.0-4.8) k/uL APTT (22.0-30.0) sec Sodium (137-145) mmol/L BUN (7-17) mg/dL Creatinine (0.52-1.04) mg/dL Glucose (74-99) mg/dL Total Protein (6.3-8.2) g/dL Albumin (3.5-5.0) g/dL Crossmatch See Detail Thrombosis Risk Factor Assmnt - Choose All That Apply Any of the Below Risk Factors Present?: Yes Each Factor Represents 1 point: Abnormal pulmonary function (COPD) Thrombosis Risk Factor Assessment Total Risk Factor Score: 1 Thrombosis Risk Factor Assessment Level: Low Risk
--- NOTE | 2020-11-29 14:18 | P.DS ---
Providers Date of admission: 11/28/20 17:37 Expected date of discharge: 11/29/20 Attending physician: Abdulkadir Rodriguez Primary care physician: Jabari Granado [facility] Course: Chief Complaint: Low hemoglobin History of presenting complaint: This is a pleasant 80-year-old patient,from [facility]. followed by Dr. Granado. stopped smoking 2 years ago. 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 Has been nonambulatory. Bilateral pulmonary embolism in October 2020 on xarelto, bilateral COVID pneumonia. DO NOT RESUSCITATE Patient was sent in from the [facility] with a hemoglobin of 6.7. A bit tired. Denies any black stools. Does not like the food at [facility]. Decreased oral intake. Just a and rundown. Baseline shortness of breath. No fever no chills. Patient's and daughter the bedside. Patient was given 1 unit of blood. November 29: Hemoglobin 10. Patient stable. Care was discussed with the patient and the daughter. [place] to be acute on chronic anemia. Guaiac stool negative. No need for further workup. Return to the [facility]. Past medical history to include: COPD, stroke with left-sided weakness, home oxygen 3 L, bilateral pulmonary embolism, protein calorie malnutrition Social history: Patient smoking from the age of 16 up to 2019. One pack a day. No alcohol. Currently at [facility]. Family history: Mother from a ruptured brain aneurysm. Coronary artery disease Physical examination: VITAL SIGNS: 98, 92, 18, 1 61 x 80, 99% on 3 L GENERAL: Reclining In chair, tired, awake very thin built with muscle wasting , tired and short of breath EYES: Pupils equal. Conjunctiva pale. HEENT: External appearance of nose and ears normal, oral cavity grossly normal. Hard of hearing NECK: JVD not raised; masses not palpable. HEART: First and second heart sounds are normal; no edema. LUNGS: Respiratory rate increased; diminished breath sounds ABDOMEN: Soft, nontender, liver spleen not palpable, no masses palpable. PSYCH: Answering simple questions, awake, anxious MUSCULAR skeletal: Diffuse wasting of muscles, muscle muscle mass, prominent bones, osteoarthritis NEURO: Left-sided weakness INVESTIGATIONS, reviewed in the clinical context: November 29: Hemoglobin 10 White count 17.8 hemoglobin 7 platelets 553 potassium 4.2 BUN 18 creatinine 0.36 albumin 2.6 Assessment and plan: -Acute on chronic exacerbation of anemia of chronic disease. Symptomatic. Tired Received 1 unit PRBC. Repeat hemoglobin 10 -Chronic advanced prednisone dependent COPD in a previous smoker: DuoNeb 4 times a day, Symbicort 160/4.52 puffs twice a day, prednisone 10 mg daily -Subacute bilateral pulmonary embolism Continue Xarelto -Questionable lung mass and new pneumatocele Follow pulmonary -chronic hypoxic respiratory failure from COPD exacerbation: 3 L nasal cannula -Moderate protein calorie malnutrition from decreased oral intake Nutritional supplement -Left hemiparesis from prior stroke Patient non-ambulatory -Chronic medical debility -Essential hypertension Cozaar 25 mg daily -GERD Protonix 40 mg daily -muscular skeletal pain. Primary osteoarthritis [place] 5/500 one tablet every 6 when necessary -DO NOT RESUSCITATE Disposition: [facility]CF/[facility] Plan - Discharge Summary New Discharge Prescriptions: Continue Budesonide-Formot 160-4.5 Mcg [Symbicort 160-4.5 Mcg Inhaler] 2 puff INHALATION RT-BID@0800,1700 Sodium Chloride [Saline Nasal [place]] 1 spray EA NOSTRIL Q2H PRN PRN Reason: Congestion Magnesium Hydroxide [Milk of Magnesia Concentrate] 7,200 mg PO DAILY PRN PRN Reason: Constipation Ipratropium-Albuterol Nebulize [Duoneb 0.5 mg-3 mg/3 ml Soln] 3 ml INHALATION RT-QID PRN PRN Reason: COPD Na Phos,M-B/Na Phos,Di-Ba [Fleet Adult] 133 ml RECTAL DAILY PRN PRN Reason: Constipation bisacodyL [Dulcolax] 10 mg RECTAL DAILY PRN PRN Reason: Constipation predniSONE 10 mg PO DAILY@0800 Acetaminophen Tab [Tylenol] 500 mg PO Q6HR PRN tab PRN Reason: Fever And/ Or Pain HYDROcodone/APAP 5-325MG [[place] 5-325] 1 tab PO Q6H #12 tab Lactose-Reduced Food [Ensure Plus] 120 ml PO TID@0800,1200,1700 Ipratropium-Albuterol Nebulize [Duoneb 0.5 mg-3 mg/3 ml Soln] 3 ml INHALATION RT-QID levETIRAcetam ORAL SOLN [Keppra Oral Soln] 500 mg PO BID@0800,2100 Pantoprazole [Protonix] 40 mg PO DAILY@0600 Losartan [Cozaar] 25 mg PO DAILY@0800 Cholecalciferol [Vitamin D3 (25 Mcg = 1000 Iu)] 100 mcg PO DAILY@1700 Menthol/Zinc Oxide [Calmoseptine Ointment] 1 applic TOPICAL BID Melatonin 3 mg PO HS PRN tablet PRN Reason: Insomnia Rivaroxaban [Xarelto] 20 mg PO DAILY@1700 ALPRAZolam [Xanax] 0.25 mg PO BID PRN #6 tab PRN Reason: Anxiety Lidocaine 5% Patch [Lidoderm 5% Patch] 1 patch TRANSDERM DAILY@0800 Ascorbic Acid [Vitamin C] 500 mg PO DAILY@1700 Discharge Medication List Budesonide-Formot 160-4.5 Mcg [Symbicort 160-4.5 Mcg Inhaler] 2 puff INHALATION RT-BID@0800,1700 06/28/19 [History] Ipratropium-Albuterol Nebulize [Duoneb 0.5 mg-3 mg/3 ml Soln] 3 ml INHALATION RT-QID 10/16/20 [History] Ipratropium-Albuterol Nebulize [Duoneb 0.5 mg-3 mg/3 ml Soln] 3 ml INHALATION RT-QID PRN 10/16/20 [History] Lactose-Reduced Food [Ensure Plus] 120 ml PO TID@0800,1200,1700 10/16/20 [History] Losartan [Cozaar] 25 mg PO DAILY@0800 10/16/20 [History] Magnesium Hydroxide [Milk of Magnesia Concentrate] 7,200 mg PO DAILY PRN 10/16/20 [History] Na Phos,M-B/Na Phos,Di-Ba [Fleet Adult] 133 ml RECTAL DAILY PRN 10/16/20 [History] Pantoprazole [Protonix] 40 mg PO DAILY@0600 10/16/20 [History] Sodium Chloride [Saline Nasal [place]] 1 spray EA NOSTRIL Q2H PRN 10/16/20 [History] bisacodyL [Dulcolax] 10 mg RECTAL DAILY PRN 10/16/20 [History] levETIRAcetam ORAL SOLN [Keppra Oral Soln] 500 mg PO BID@0800,2100 10/16/20 [History] predniSONE 10 mg PO DAILY@0810/16/20 [History] Acetaminophen Tab [Tylenol] 500 mg PO Q6HR PRN tab 10/22/20 [Rx] Cholecalciferol [Vitamin D3 (25 Mcg = 1000 Iu)] 100 mcg PO DAILY@169911/03/20 [History] Menthol/Zinc Oxide [Calmoseptine Ointment] 1 applic TOPICAL BID 11/03/20 [History] Melatonin 3 mg PO HS PRN tablet 11/09/20 [Rx] Rivaroxaban [Xarelto] 20 mg PO DAILY@169911/14/20 [History] ALPRAZolam [Xanax] 0.25 mg PO BID PRN #6 tab 11/18/20 [Rx] HYDROcodone/APAP 5-325MG [[place] 5-325] 1 tab PO Q6H #12 tab 11/18/20 [Rx] Ascorbic Acid [Vitamin C] 500 mg PO DAILY@169911/28/20 [History] Lidocaine 5% Patch [Lidoderm 5% Patch] 1 patch TRANSDERM DAILY@79911/28/20 [History] Follow up Appointment(s)/Referral(s): Jabari Granado DO [Primary Care Provider] - 1-2 days Activity/Diet/Wound Care/Special Instructions: chopped diet Discharge Disposition: HOME SELF-CARE
[2020-11-29] MEDS ORDERED: ASCORBIC ACID 500 MG TAB PO SCH (17:00)
[2020-11-29] MEDS ORDERED: RIVAROXABAN 20 MG TAB PO SCH (17:00)
[2020-11-29] MEDS ORDERED: CHOLECALCIFEROL 25 MCG (1000 IU) TABLET PO SCH (17:00)
== END 2020-11-29 13:43 | disposition home or self-care (01) ==
LOC: EC 14:38 → 6NMEDSUR 17:37 → 2SICU 17:58 → 6NMEDSUR 17:59
PROVIDERS: ADMIT Hospitalist; ATTEND Hospitalist
DX: D63.8 Anemia in other chronic diseases classified elsewhere (principal); I69.354 Hemiplegia and hemiparesis following cerebral infarction affecting left non-dominant side; Z86.711 Personal history of pulmonary embolism; J44.1 Chronic obstructive pulmonary disease with (acute) exacerbation; R09.02 Hypoxemia; J12.82 Pneumonia due to coronavirus disease 2019; M62.50 Muscle wasting and atrophy, not elsewhere classified, unspecified site; Z99.81 Dependence on supplemental oxygen; F55.3 Abuse of steroids or hormones; M19.91 Primary osteoarthritis, unspecified site; Z87.891 Personal history of nicotine dependence; Z82.49 Family history of ischemic heart disease and other diseases of the circulatory system; I10 Essential (primary) hypertension; K21.9 Gastro-esophageal reflux disease without esophagitis; E44.0 Moderate protein-calorie malnutrition; Z68.1 Body mass index [BMI] 19.9 or less, adult; Z79.01 Long term (current) use of anticoagulants; Z79.52 Long term (current) use of systemic steroids; Z79.51 Long term (current) use of inhaled steroids
CPT/HCPCS: 36430; 99285; 36415; 94640 ×2; 97162; 86900; 86901; 80053; 85025; 85027; 85610; 85730; 86850; 86920; 82272; 87635; G0378 ×2; P9016; J7512

== ENCOUNTER 2021-04-02 20:47 | Inpatient (IN) | payer MEDICARE, OTHER ==
[2021-04-02] MEDS ORDERED: SODIUM CHLORIDE 0.9% 1,000 ML IV STA (21:08)
[2021-04-02] MEDS ORDERED: ACETAMINOPHEN TAB 325 MG TAB PO STA (21:08)
[2021-04-02] MEDS ORDERED: PIPERACILLIN-TAZOBACTAM 3.375 GM in SODIUM CHLORIDE 0.9% 100 ML IVPB STA (21:17)
[2021-04-02] MEDS ORDERED: PNEUMONIA PROTOCOL UTILIZED 1 EACH MISC PO PRN (21:17)
[2021-04-02] MEDS ORDERED: AZITHROMYCIN 500 MG in SODIUM CHLORIDE 0.9% 250 ML IVPB STA (21:17)
--- NOTE | 2021-04-02 21:20 | ED ---
Fever HPI - General Chief Complaint: Fever Stated Complaint: Fever Time Seen by Provider: 04/02/21 21:07 Source: patient, EMS, RN notes reviewed Mode of arrival: EMS - History of Present Illness Initial Comments: This is a pleasant 80-year-old female with a history of COPD. Patient currently residing at a [facility] secondary to having a CVA. Patient sent in after having increasing shortness of breath for the last week. Patient states she's also had productive cough. Patient was found be febrile today with decreased responsiveness and fatigue. Patient sent for evaluation. Patient is not currently on antibiotics. He has not had the COVID-19 booster. Patient had C OVID-19 back in November 2020. She also had associated bilateral pneumonia. Patient given adequate history. She is denying any chest pain. No difficulties with urination or bowels. No abdominal pain. No nausea or vomiting. Patient is complaining of generalized weakness. No significant headache. No neck stiffness. No skin rashes or lesions. - Related Data Home Medications Medication Instructions Recorded Confirmed Budesonide-Formot 160-4.5 Mcg 2 puff INHALATION RT-BID@0800,1700 06/28/19 04/02/21 [Symbicort 160-4.5 Mcg Inhaler] Ipratropium-Albuterol Nebulize 3 ml INHALATION RT-QID 10/16/20 04/02/21 [Duoneb 0.5 mg-3 mg/3 ml Soln] Ipratropium-Albuterol Nebulize 3 ml INHALATION RT-QID PRN 10/16/20 04/02/21 [Duoneb 0.5 mg-3 mg/3 ml Soln] Lactose-Reduced Food [Ensure Plus] 120 ml PO BID@0800,1700 10/16/20 04/02/21 Losartan [Cozaar] 25 mg PO DAILY@0800 10/16/20 04/02/21 Magnesium Hydroxide [Milk of 7,200 mg PO DAILY PRN 10/16/20 04/02/21 Magnesia Concentrate] Na Phos,M-B/Na Phos,Di-Ba [Fleet 133 ml RECTAL DAILY PRN 10/16/20 04/02/21 Adult] Pantoprazole [Protonix] 40 mg PO DAILY@0600 10/16/20 04/02/21 Sodium Chloride [Saline Nasal 1 spray EA NOSTRIL Q2H PRN 10/16/20 04/02/21 [place]] bisacodyL [Dulcolax] 10 mg RECTAL DAILY PRN 10/16/20 04/02/21 levETIRAcetam ORAL SOLN [Keppra 500 mg PO BID@0800,209910/16/20 04/02/21 Oral Soln] predniSONE 10 mg PO DAILY@0810/16/20 04/02/21 Cholecalciferol [Vitamin D3 (25 100 mcg PO DAILY@169911/03/20 04/02/21 Mcg = 1000 Iu)] Rivaroxaban [Xarelto] 20 mg PO DAILY@169911/14/20 04/02/21 Ascorbic Acid [Vitamin C] 500 mg PO DAILY@169911/28/20 04/02/21 Lidocaine 5% Patch [Lidoderm 5% 1 patch TRANSDERM DAILY@79911/28/20 04/02/21 Patch] ALPRAZolam [Xanax] 0.25 mg PO Q8H PRN 04/02/21 04/02/21 Albuterol Sulfate [Albuterol 2 puff PO RT-Q6H PRN 04/02/21 04/02/21 Sulfate Hfa] Dronabinol [Marinol] 2.5 mg PO DAILY@79904/02/21 04/02/21 Ferrous Sulfate [Feosol] 325 mg PO DAILY@169904/02/21 04/02/21 Fluticasone Nasal [place] [Flonase 2 spray EA NOSTRIL HS@209904/02/21 04/02/21 Nasal [place]] guaiFENesin [Mucinex] 600 mg PO BID@0800,209904/02/21 04/02/21 guaiFENesin [guaiFENesin Oral 200 mg PO Q4H PRN 04/02/21 04/02/21 Solution] Previous Rx's Medication Instructions Recorded Acetaminophen Tab [Tylenol] 500 mg PO Q6HR PRN tab 10/22/20 Melatonin 3 mg PO HS PRN tablet 11/09/20 HYDROcodone/APAP 5-325MG [[place] 1 tab PO Q6H #12 tab 11/18/20 5-325] Allergies Allergy/AdvReac Type Severity Reaction Status Date / Time aspirin AdvReac excessive Verified 04/02/21 23:01 brusing Review of Systems ROS Statement: Those systems with pertinent positive or pertinent negative responses have been documented in the HPI. ROS Other: All systems not noted in ROS Statement are negative. Past Medical History Past Medical History: COPD, CVA/TIA, Pneumonia, Respiratory Disorder Additional Past Medical History / Comment(s): cataracts(sx done), "bruises easily-thin fragile skin", lower dental bridge, CVA September, Covid 10/2020 History of Any Multi-Drug Resistant Organisms: MRSA Date of last positivie culture/infection: 11/14/20 MDRO Source:: MRSA SPUTUM Past Surgical History: Appendectomy, Tonsillectomy Additional Past Surgical History / Comment(s): Bilateral cataracts Past Anesthesia/Blood Transfusion Reactions: No Reported Reaction Past Psychological History: Anxiety Smoking Status: Former smoker Past Alcohol Use History: None Reported Past Drug Use History: None Reported - Past Family History Mother Family Medical History: Myocardial Infarction ([place]) Additional Family Medical History / Comment(s): Mother from a ruptured brain aneurysm, history of a heart attack Father Family Medical History: Diabetes Mellitus Additional Family Medical History / Comment(s): "heart problems" Father pas sed away from bladder cancer , General Exam - General Exam Comments Initial Comments: Thin appearing 80-year-old female in mild distress. Patient appears to be ill but not overtly toxic. Patient is tachycardic. However the blood pressure is actually a bit elevated. Patient found to be febrile. Capillary refill is 3-4 seconds. Moist mucous membranes General appearance: alert, in no apparent distress Head exam: Present: atraumatic, normocephalic, normal inspection Eye exam: Present: normal appearance, PERRL, EOMI. Absent: scleral icterus, conjunctival injection, periorbital swelling ENT exam: Present: normal exam, normal oropharynx, mucous membranes moist. Absent: mucous membranes dry Neck exam: Present: normal inspection. Absent: tenderness, meningismus, lymphadenopathy Respiratory exam: Present: respiratory distress, wheezes, rales, rhonchi, other (On nasal oxygen chronically). Absent: normal lung sounds bilaterally, stridor Cardiovascular Exam: Present: normal rhythm, tachycardia, normal heart sounds. Absent: systolic murmur, diastolic murmur, rubs, gallop, clicks GI/Abdominal exam: Present: soft, normal bowel sounds. Absent: distended, tenderness, guarding, rebound, rigid Extremities exam: Present: normal inspection, full ROM, normal capillary refill. Absent: tenderness, pedal edema, joint swelling, calf tenderness Back exam: Present: normal inspection Neurological exam: Present: alert, oriented X3, CN II-XII intact Psychiatric exam: Present: normal affect, normal mood Skin exam: Present: warm, dry, intact, normal color. Absent: rash Course Vital Signs 04/02/21 04/02/21 04/02/21 20:49 22:17 23:21 Temperature 100.7 F H 98.4 F Pulse Rate 110 H 97 84 Respiratory 20 18 18 Rate Blood Pressure 152/85 127/75 115/63 Blood Pressure [Right Arm] O2 Sat by Pulse 95 98 97 Oximetry 04/03/21 04/03/21 00:00 00:36 Temperature 98.3 F Pulse Rate 79 Respiratory 18 18 Rate Blood Pressure 112/65 Blood Pressure 121/66 [Right Arm] O2 Sat by Pulse 100 99 Oximetry - Reevaluation(s) Reevaluation #1: 04/02/21 23:32 Medical record is reviewed Symptoms are improved here in the emergency department Patient is informed of results and questions answered Patient in no distress Patient somewhat improved. Capillary refill less than 2 seconds. Medical Decision Making - Medical Decision Making Patient has respiratory illness based on presentation and clinical evaluation. Will treat for possible pseudomonas pneumonia with Zosyn and azithromycin initially. Blood cultures ordered. Lactic acid ordered. Septic workup started. Patient is actually a bit hypertensive. 1 L normal saline ordered initially. Antipyretics. We'll revaluate, probable admission. - Lab Data Result diagrams: 04/02/21 21:26 04/02/21 21:26 Lab Results 04/02/21 04/02/21 04/02/21 Range/Units 21:26 21:26 21:26 WBC 23.0 H (3.8-10.6) k/uL RBC 4.25 (3.80-5.40) m/uL Hgb 11.6 (11.4-16.0) gm/dL Hct 37.2 (34.0-46.0) % MCV 87.6 (80.0-100.0) fL MCH 27.4 (25.0-35.0) pg MCHC 31.2 (31.0-37.0) g/dL RDW 14.7 (11.5-15.5) % Plt Count 393 (150-450) k/uL MPV 7.7 Neutrophils % 91 % Lymphocytes % 3 % Monocytes % 4 % Eosinophils % 1 % Basophils % 0 % Neutrophils # 21.0 H (1.3-7.7) k/uL Lymphocytes # 0.8 L (1.0-4.8) k/uL Monocytes # 0.9 (0-1.0) k/uL Eosinophils # 0.2 (0-0.7) k/uL Basophils # 0.1 (0-0.2) k/uL Hypochromasia Slight Sodium 138 (137-145) mmol/L Potassium 3.9 (3.5-5.1) mmol/L Chloride 101 (98-107) mmol/L Carbon Dioxide 30 (22-30) mmol/L Anion Gap 7 mmol/L BUN 18 H (7-17) mg/dL Creatinine 0.59 (0.52-1.04) mg/dL Est GFR (CKD-EPI)AfAm >90 (>60 ml/min/1.73 sqM) Est GFR (CKD-EPI)NonAf 88 (>60 ml/min/1.73 sqM) Glucose 119 H (74-99) mg/dL Plasma Lactic Acid Andres 1.0 (0.7-2.0) mmol/L Calcium 9.9 (8.4-10.2) mg/dL Total Bilirubin 0.7 (0.2-1.3) mg/dL AST 15 (14-36) U/L ALT 7 (4-34) U/L Alkaline Phosphatase 62 (38-126) U/L Troponin I (0.000-0.034) ng/mL C-Reactive Protein 13.7 H (<1.0) mg/dL Total Protein 6.9 (6.3-8.2) g/dL Albumin 3.3 L (3.5-5.0) g/dL Coronavirus (PCR) (Not Detectd) Influenza Type A RNA (Not Detectd) Influenza Type B (PCR) (Not Detectd) 04/02/21 04/02/21 04/02/21 Range/Units 21:28 21:37 21:37 WBC (3.8-10.6) k/uL RBC (3.80-5.40) m/uL Hgb (11.4-16.0) gm/dL Hct (34.0-46.0) % MCV (80.0-100.0) fL MCH (25.0-35.0) pg MCHC (31.0-37.0) g/dL RDW (11.5-15.5) % Plt Count (150-450) k/uL MPV Neutrophils % % Lymphocytes % % Monocytes % % Eosinophils % % Basophils % % Neutrophils # (1.3-7.7) k/uL Lymphocytes # (1.0-4.8) k/uL Monocytes # (0-1.0) k/uL Eosinophils # (0-0.7) k/uL Basophils # (0-0.2) k/uL Hypochromasia Sodium (137-145) mmol/L Potassium (3.5-5.1) mmol/L Chloride (98-107) mmol/L Carbon Dioxide (22-30) mmol/L Anion Gap mmol/L BUN (7-17) mg/dL Creatinine (0.52-1.04) mg/dL Est GFR (CKD-EPI)AfAm (>60 ml/min/1.73 sqM) Est GFR (CKD-EPI)NonAf (>60 ml/min/1.73 sqM) Glucose (74-99) mg/dL Plasma Lactic Acid Andres (0.7-2.0) mmol/L Calcium (8.4-10.2) mg/dL Total Bilirubin (0.2-1.3) mg/dL AST (14-36) U/L ALT (4-34) U/L Alkaline Phosphatase (38-126) U/L Troponin I <0.012 (0.000-0.034) ng/mL C-Reactive Protein (<1.0) mg/dL Total Protein (6.3-8.2) g/dL Albumin (3.5-5.0) g/dL Coronavirus (PCR) Not Detected (Not Detectd) Influenza Type A RNA Not Detected (Not Detectd) Influenza Type B (PCR) Not Detected (Not Detectd) Critical Care Time Critical Care Time: Yes (Multiple re-evaluations, reevaluating patient's response to treatment) Total Critical Care Time: 31 Disposition Clinical Impression: Right upper lobe pneumonia, Severe sepsis Disposition: ADMITTED IP TO THIS [facility] Condition: Good Decision to Admit Reason: Admit from EC Decision Time: 23:32
[2021-04-02 22:00] LABS: Basophils # (A) 0.1 k/uL (0-0.2); Basophils % (A) 0 %; Eosinophils # (A) 0.2 k/uL (0-0.7); Eosinophils % (A) 1 %; HCT 37.2 % (34.0-46.0); HGB 11.6 gm/dL (11.4-16.0); Hypochromasia Slight; Lymphocytes # (A) 0.8 k/uL (1.0-4.8); Lymphocytes % (A) 3 %; MCH 27.4 pg (25.0-35.0); MCHC 31.2 g/dL (31.0-37.0); MCV 87.6 fL (80.0-100.0); Mean Platelet Volume 7.7; Monocytes # (A) 0.9 k/uL (0-1.0); Monocytes % (A) 4 %; Neutrophils % (A) 91 %; Platelet Count 393 k/uL (150-450); RBC 4.25 m/uL (3.80-5.40); RDW 14.7 % (11.5-15.5)
--- NOTE | 2021-04-02 22:03 | XR ---
EXAMINATION TYPE: XR chest 1V portable DATE OF EXAM: 04/02/2021 COMPARISON: NONE HISTORY: Fever TECHNIQUE: Single view FINDINGS: There is some coarse infiltrate in the right upper lobe with some mild volume loss. Trachea deviated slightly to the right side. There is some blunting of the costophrenic angles. No heart antonio lure. Thoracic aorta is atheromatous. IMPRESSION: There is pleural reaction and scarring and atelectasis at the lung bases improved compare d to last exam. There is infiltrate right upper lobe with mild volume loss that is increased compared to old exam. No heart failure.
[2021-04-02 22:13] LABS: ALT 7 U/L (4-34); AST 15 U/L (14-36); African American GFR (CKD) >90 (>60 ml/min/1.73 sqM); Albumin 3.3 g/dL (3.5-5.0); Alkaline Phosphatase 62 U/L (38-126); Anion Gap 7 mmol/L; Blood Urea Nitrogen 18 mg/dL (7-17); Calcium 9.9 mg/dL (8.4-10.2); Carbon Dioxide 30 mmol/L (22-30); Chloride 101 mmol/L (98-107); Glucose 119 mg/dL (74-99); Non-African American GFR(CKD) 88 (>60 ml/min/1.73 sqM); Potassium 3.9 mmol/L (3.5-5.1); Sodium 138 mmol/L (137-145); Total Bilirubin 0.7 mg/dL (0.2-1.3); Total Protein 6.9 g/dL (6.3-8.2)
[2021-04-02 22:31] LABS: C Reactive Protein 13.7 mg/dL (<1.0)
[2021-04-03] MEDS: SODIUM CHLORIDE 0.9% 1,000 ML IV SCH ×3 (03:39→13:48)
[2021-04-03] MEDS: PANTOPRAZOLE 40 MG/10 ML VIAL IV SCH ×2 (03:40→08:59)
[2021-04-03] MEDS: PIPERACILLIN-TAZOBACTAM 3.375 GM in SODIUM CHLORIDE 0.9% 100 ML IVPB SCH ×3 (06:20→20:57)
[2021-04-03] MEDS ORDERED: MELATONIN 3 MG TABLET PO PRN (07:20)
[2021-04-03] MEDS ORDERED: ALBUTEROL HFA INHALER INHALATION PRN (07:20)
--- NOTE | 2021-04-03 07:38 | XR ---
EXAMINATION TYPE: XR chest 1V portable DATE OF EXAM: 04/03/2021 COMPARISON: Chest x-ray 04/02/2021, chest CT 10/18/2020 HISTORY: Pneumonia TECHNIQUE: Single frontal view of the chest is obtained. FINDINGS: Airspace disease is again noted in the right upper lobe. Cardiac mediastinal silhouette is stable accounting for rotation. No evident pneumothorax or pleural effusion. Patchy basilar density is again seen. Interstitium appears prominently. There are overlying artifacts. Bones are unchanged. IMPRESSION: Correlate for pneumonia, there is underlying emphysema, follow-up to resolution. Difficu lt to exclude interstitial edema.
[2021-04-03] MEDS ORDERED: NON FORMULARY DRUG (Lactose-Reduced Food [Ensure Plus] 237 ML Liquid) PO SCH (08:00)
[2021-04-03] MEDS ORDERED: predniSONE 10 MG TAB PO SCH (08:00)
[2021-04-03] MEDS: ALPRAZolam 0.25 MG TAB PO PRN (08:32)
[2021-04-03] MEDS: HYDROcodone/APAP 5-325MG 1 EACH TAB PO SCH ×3 (08:32→20:56)
[2021-04-03] MEDS: guaiFENesin 600 MG TABLET.ER PO SCH ×2 (08:33→20:57)
[2021-04-03] MEDS: LOSARTAN 25 MG TAB PO SCH (08:33)
[2021-04-03] MEDS: levETIRAcetam ORAL SOLN 500 MG/5 ML CUP PO SCH ×2 (08:33→20:57)
[2021-04-03] MEDS: LIDOCAINE 5% PATCH TOPICAL SCH (08:50)
[2021-04-03] MEDS ORDERED: SODIUM CHLORIDE 0.65% NASAL SPRAY 44 ML BTL INTRANASAL PRN (11:06)
[2021-04-03] MEDS: SYMBICORT 160-4.5 MCG INHALER INHALATION SCH ×2 (11:21→21:08)
[2021-04-03] MEDS: IPRATROPIUM-ALBUTEROL 3 ML NEB INHALATION SCH ×4 (11:21→21:07)
[2021-04-03] MEDS ORDERED: FLUCONAZOLE 100 MG TAB PO ONE (12:37)
[2021-04-03 12:47] LABS: Basophils # (A) 0.1 k/uL (0-0.2); Basophils % (A) 0 %; Eosinophils # (A) 0.2 k/uL (0-0.7); Eosinophils % (A) 1 %; HCT 33.8 % (34.0-46.0); HGB 10.6 gm/dL (11.4-16.0); Hypochromasia Moderate; Lymphocytes # (A) 0.6 k/uL (1.0-4.8); Lymphocytes % (A) 3 %; MCH 28.1 pg (25.0-35.0); MCHC 31.5 g/dL (31.0-37.0); MCV 89.3 fL (80.0-100.0); Mean Platelet Volume 7.1; Monocytes # (A) 0.6 k/uL (0-1.0); Monocytes % (A) 2 %; Neutrophils % (A) 94 %; Platelet Count 360 k/uL (150-450); RBC 3.78 m/uL (3.80-5.40); RDW 14.7 % (11.5-15.5); WBC 25.6 k/uL (3.8-10.6)
[2021-04-03 13:00] LABS: ALT 7 U/L (4-34); AST 16 U/L (14-36); African American GFR (CKD) >90 (>60 ml/min/1.73 sqM); Albumin 2.7 g/dL (3.5-5.0); Albumin/Globulin Ratio 0.8; Alkaline Phosphatase 55 U/L (38-126); Anion Gap 5 mmol/L; Blood Urea Nitrogen 15 mg/dL (7-17); Calcium 9.2 mg/dL (8.4-10.2); Carbon Dioxide 26 mmol/L (22-30); Chloride 106 mmol/L (98-107); Globulin 3.3 g/dL; Glucose 123 mg/dL (74-99); Non-African American GFR(CKD) >90 (>60 ml/min/1.73 sqM); Potassium 3.9 mmol/L (3.5-5.1); Sodium 137 mmol/L (137-145); Total Bilirubin 1.4 mg/dL (0.2-1.3)
--- NOTE | 2021-04-03 14:27 | P.CNPUL ---
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 patient follows with Dr. Granados in the pulmonary clinic. Patient currently resides in a local [facility] secondary to having a CVA. Patient came into the emergency department brought in by EMS on the 04/02/2021 for evaluation of worsening shortness of breath, cough with purulent phlegm, she was also febrile on presentation with decreased responsiveness and fatigue. Patient was started on antibiotics initially because given a dose of Zithromax in the ER which was later switched to Zosyn. Patient has a area of chronic scarring in the right upper lobe, her chest x-ray in the emergency department showed pleural reaction and scarring and atelectasis in the lung bases, and infiltrate in the right upper lobe with mild volume loss that was increased from prior exam. Patient tested negative for COVID-19, her influenza A and B were also negative. She did have a leukocytosis with white blood cell count of 23, hemoglobin was 11.6, electrolytes are within normal limits, BUN was 18 creatinine 0.59, troponin was negative at less than 0.012, CRP was 13.7, LFTs were within normal limits. She was given some gentle IV hydration in the emergency department, she is getting IV fluids currently infusing at 130 ML per hour, she was started on b reathing treatments, was started on antibiotics, she still coughing up some purulent colored phlegm which will be sent for cultures. But overall she appears to be in no acute distress, much more responsive, and more comfortable. On 5 L of oxygen her pulse ox today is 94%, she had low-grade fevers overnight. Review of Systems All systems: negative Constitutional: Denies chills, Denies fever Eyes: denies blurred vision, denies pain Ears, nose, mouth and throat: Denies headache, Denies sore throat Cardiovascular: Denies chest pain, Denies shortness of breath Respiratory: Reports cough with sputum, Reports dyspnea, Reports home oxygen, Reports respiratory infections, Reports wheezing, Denies cough Gastrointestinal: Denies abdominal pain, Denies diarrhea, Denies nausea, Denies vomiting Genitourinary: Denies dysuria, Denies hematuria Musculoskeletal: Denies myalgias Integumentary: Denies pruritus, Denies rash Neurological: Denies numbness, Denies weakness Psychiatric: Denies anxiety, Denies depression Endocrine: Denies fatigue, Denies weight change Past Medical History Past Medical History: COPD, CVA/TIA, Pneumonia, Respiratory Disorder Additional Past Medical History / Comment(s): cataracts(sx done), "bruises easily-thin fragile skin", lower dental bridge, CVA September, Covid 10/2020 History of Any Multi-Drug Resistant Organisms: MRSA Date of last positivie culture/infection: 11/14/20 MDRO Source:: MRSA SPUTUM Past Surgical History: Appendectomy, Tonsillectomy Additional Past Surgical History / Comment(s): Bilateral cataracts Past Anesthesia/Blood Transfusion Reactions: No Reported Reaction Past Psychological History: Anxiety Smoking Status: Former smoker Past Alcohol Use History: None Reported Past Drug Use History: None Reported - Past Family History Mother Family Medical History: Myocardial Infarction ([place]) Additional Family Medical History / Comment(s): Mother from a ruptured brain aneurysm, history of a heart attack Father Family Medical History: Diabetes Mellitus Additional Family Medical History / Comment(s): "heart problems" Father from bladder cancer , Medications and Allergies Home Medications Medication Instructions Recorded Confirmed Type Budesonide-Formot 160-4.5 Mcg 2 puff INHALATION RT-BID@0800,1700 06/28/19 04/02/21 History [Symbicort 160-4.5 Mcg Inhaler] Ipratropium-Albuterol Nebulize 3 ml INHALATION RT-QID 10/16/20 04/02/21 History [Duoneb 0.5 mg-3 mg/3 ml Soln] Ipratropium-Albuterol Nebulize 3 ml INHALATION RT-QID PRN 10/16/20 04/02/21 History [Duoneb 0.5 mg-3 mg/3 ml Soln] Lactose-Reduced Food [Ensure Plus] 120 ml PO BID@0800,1700 10/16/20 04/02/21 History Losartan [Cozaar] 25 mg PO DAILY@0810/16/20 04/02/21 History Magnesium Hydroxide [Milk of 7,200 mg PO DAILY PRN 10/16/20 04/02/21 History Magnesia Concentrate] Na Phos,M-B/Na Phos,Di-Ba [Fleet 133 ml RECTAL DAILY PRN 10/16/20 04/02/21 History Adult] Pantoprazole [Protonix] 40 mg PO DAILY@0600 10/16/20 04/02/21 History Sodium Chloride [Saline Nasal 1 spray EA NOSTRIL Q2H PRN 10/16/20 04/02/21 History [place]] bisacodyL [Dulcolax] 10 mg RECTAL DAILY PRN 10/16/20 04/02/21 History levETIRAcetam ORAL SOLN [Keppra 500 mg PO BID@0800,2100 10/16/20 04/02/21 H istory Oral Soln] predniSONE 10 mg PO DAILY@0810/16/20 04/02/21 History Acetaminophen Tab [Tylenol] 500 mg PO Q6HR PRN tab 10/22/20 04/02/21 Rx Cholecalciferol [Vitamin D3 (25 100 mcg PO DAILY@169911/03/20 04/02/21 History Mcg = 1000 Iu)] Melatonin 3 mg PO HS PRN tablet 11/09/20 04/02/21 Rx Rivaroxaban [Xarelto] 20 mg PO DAILY@169911/14/20 04/02/21 History HYDROcodone/APAP 5-325MG [[place] 1 tab PO Q6H #12 tab 11/18/20 04/02/21 Rx 5-325] Ascorbic Acid [Vitamin C] 500 mg PO DAILY@169911/28/20 04/02/21 History Lidocaine 5% Patch [Lidoderm 5% 1 patch TRANSDERM DAILY@79911/28/20 04/02/21 History Patch] ALPRAZolam [Xanax] 0.25 mg PO Q8H PRN 04/02/21 04/02/21 History Albuterol Sulfate [Albuterol 2 puff PO RT-Q6H PRN 04/02/21 04/02/21 History Sulfate Hfa] Dronabinol [Marinol] 2.5 mg PO DAILY@0800 04/02/21 04/02/21 History Ferrous Sulfate [Feosol] 325 mg PO DAILY@1700 04/02/21 04/02/21 History Fluticasone Nasal [place] [Flonase 2 spray EA NOSTRIL HS@2100 04/02/21 04/02/21 History Nasal [place]] guaiFENesin [Mucinex] 600 mg PO BID@0800,2100 04/02/21 04/02/21 History guaiFENesin [guaiFENesin Oral 200 mg PO Q4H PRN 04/02/21 04/02/21 History Solution] Allergies Allergy/AdvReac Type Severity Reaction Status Date / Time aspirin AdvReac excessive Verified 04/02/21 23:01 brusing Physical Exam Vitals: Vital Signs Temp Pulse Pulse Resp BP BP Pulse Ox 04/03/21 11:32 80 04/03/21 11:23 80 04/03/21 08:00 99.0 F 112 H 22 171/92 94 L 04/03/21 07:30 112 H 22 04/03/21 04:00 99.0 F 18 139/77 93 L 04/03/21 02:12 97.7 F 18 123/72 100 04/03/21 02:00 16 04/03/21 00:36 79 18 112/65 99 04/03/21 00:00 98.3 F 18 121/66 100 04/02/21 23:21 98.4 F 84 18 115/63 97 04/02/21 22:17 97 18 127/75 98 04/02/21 20:49 100.7 F H 110 H 20 152/85 95 Intake and Output 04/02/21 04/03/21 04/03/21 22:59 06:59 14:59 Output Total 100 200 Balance -100 -200 Output: Urine 100 200 Other: Voiding Method Bedpan Bedpan # Bowel Movements 1 Weight 41.73 kg 47 kg GENERAL EXAM: Alert, very pleasant, very hard of hearing, 80-year-old frail- looking thin built white female, 5 L of oxygen a pulse ox of 94%ortable in no apparent distress. HEAD: Normocephalic/atraumatic. EYES: Normal reaction of pupils, equal size. Conjunctiva pink, sclera white. NOSE: Clear with pink turbinates. THROAT: No erythema or exudates. NECK: No masses, no JVD, no thyroid enlargement, no adenopathy. CHEST: No chest wall deformity. Symmetrical expansion. LUNGS: Equal air entry with diminished breath sounds, with coarse crackles in the right upper lobe CVS: Regular rate and rhythm, normal S1 and S2, no gallops, no murmurs, no rubs ABDOMEN: Soft, nontender. No hepatosplenomegaly, normal bowel sounds, no guarding or rigidity. EXTREMITIES: No clubbing, no edema, no cyanosis, 2+ pulses and upper and lower extremities. MUSCULOSKELETAL: Muscle strength and tone normal. SPINE: No scoliosis or deformity SKIN: No rashes CENTRAL NERVOUS SYSTEM: Alert and oriented -3. No focal deficits, tone is normal in all 4 extremities. PSYCHIATRIC: Alert and oriented -3. Appropriate affect. Intact judgment and insight. Results - Laboratory Findings CBC and BMP: 04/03/21 12:38 04/03/21 12:38 Abnormal lab findings: Abnormal Labs 04/02/21 04/02/21 04/03/21 21:26 21:26 12:38 WBC 23.0 H 25.6 H RBC 3.78 L Hgb 10.6 L Hct 33.8 L Neutrophils # 21.0 H 24.0 H Lymphocytes # 0.8 L 0.6 L BUN 18 H Creatinine Glucose 119 H Total Bilirubin C-Reactive Protein 13.7 H Total Protein Albumin 3.3 L 04/03/21 12:38 WBC RBC Hgb Hct Neutrophils # Lymphocytes # BUN Creatinine 0.51 L Glucose 123 H Total Bilirubin 1.4 H C-Reactive Protein Total Protein 6.0 L Albumin 2.7 L - Diagnostic Findings Chest x-ray: report reviewed, image reviewed Assessment and Plan Plan: Assessment: #1. Acute on chronic hypoxic respiratory failure related to acute pneumonia, possibly healthcare acquired. COVID-19 PCR was negative, influenza A and B were negative, chest x-ray showed scarring and atelectasis at the lung bases, and infiltrate in the right upper lobe with mild volume loss increased from prior exam. Note the patient does have area of chronic scarring in the right upper lobe related to previous history of pneumonia #2. Previous history of MRSA pneumonia #3. History of COVID-19 infection in October 2020 #4. Advanced COPD on home oxygen most recently has been wearing 4 L of oxygen on a regular basis, baseline FEV1 of less than 50% of predicted #5. Chronic scarring in the right upper lobe #7. [id number] smoking history, currently in remission #8. Compression fractures of the thoracolumbar spine with kyphoscoliosis #9. 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 History of seizure disorder #11. Chronic anxiety #12. History of pulmonary hypertension related to chronic advanced lung disease #13. History of CVA #14. Poor overall functional performance Plan: Continue current antibiotic coverage, patient is currently on Zosyn Send a sputum for culture Add Zyvox in view of history of MRSA related pneumonia Continue Mucinex Continue Xarelto continue breathing treatments Recommend addressing code status We will continue supportive treatment I performed a history & physical examination of the patient and discussed their management with my nurse practitioner, Leni Zarco. I reviewed the nurse practitioner's note and agree with the documented findings and plan of care. Lung sounds are positive for coarse crackles throughout the lung atkins. The fi ndings and the impression was discussed with the patient. I attest to the documentation by the nurse practitioner. Time with Patient: Greater than 30
[2021-04-03] MEDS: LINEZOLID 600 MG TAB PO SCH ×2 (15:15→20:56)
--- NOTE | 2021-04-03 15:46 | P.HPIM ---
History of Present Illness H&P Date: 04/03/21 Chief Complaint: Cough History of presenting complaint: This is a pleasant 80-year-old patient,from [facility]. followed by Dr. Granado. . 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 Has been nonambulatory. Bilateral pulmonary embolism in October 2020 on xarelto, DO NOT RESUSCITATE Patient now presents with increasing shortness of breath. Has had a cough she says for about 2 weeks. Bringing up green sputum. Very congested. Decreased appetite. Patient is weak and tired. Not sure if she's had a fever. Tired. Patient is a full assist. No hemoptysis. Review of systems: GEN.: Tired EYES: None HEENT: Decreased hearing NECK: None RESPIRATORY: As above CARDIOVASCULAR: None GASTROINTESTINAL: None GENITOURINARY: None MUSCULOSKELETAL: Chronic joint pains LYMPHATICS: None HEMATOLOGICAL: None PSYCHIATRY: A bit forgetful and anxious NEUROLOGICAL: Full assist Past medical history to include: COPD, stroke with left-sided weakness, home oxygen 3 L, bilateral pulmonary embolism, protein calorie malnutrition. COVID-19 Social history: smoking from the age of 16 up to 2019. One pack a day. No alcohol. at [facility]. Family history: Mother from a ruptured brain aneurysm. Coronary artery disease Physical examination: VITAL SIGNS: 100.7, 110, 20, 152/85, 95% on 5 L GENERAL: BMI 16.7, loss of subcutaneous fat and muscle mass, prominent bones. Congested cough. EYES: Pupils equal. Conjunctiva normal. HEENT: External appearance of nose and ears normal, oral cavity grossly normal. White patches in the pharynx NECK: JVD not raised; masses not palpable. HEART: First and second heart sounds are normal; no edema. LUNGS: Respiratory rate increase; coarse crackles on the right side, prolonged expiration. ABDOMEN: Soft, nontender, liver spleen not palpable, no masses palpable. PSYCH: Alert and oriented x3; mood and affect anxiousl. MUSCULOSKELETAL:No Clubbing/cyanosis;muscles-grossly intact NEUROLOGICAL: Cranial nerves grossly intact; no facial asymmetry, power and sensation grossly intact. LYMPHATICS: No lymph nodes palpable in the axilla and neck INVESTIGATIONS, reviewed in the clinical context: April 03: White count 25.6 hemoglobin 10.6 platelets 3603.9 BUN 15 creatinine 0.5 bun albumin 2.7 Coronavirus [/influenza type A/influenza type B: Not detected EKG tracing personally reviewed by me-normal sinus rhythm, rate 108, some ST segment depression in inferolateral leads Chest x-ray film personally reviewed by me-right upper lobe infiltrate. Advanced emphysema. Some chronic fibrotic findings Assessment and plan: -Right upper lobe pneumonia, suspect gram-negative organism IV Zosyn. Sputum for Gram stain and culture. Mucinex. -Acute hypoxic respiratory failure from pneumonia/COPD exacerbation 5 L nasal cannula -Pharyngeal candidiasis Diflucan -Normocytic anemia of chronic disease. Follow H&H -Chronic advanced prednisone dependent COPD in a previous smoker: DuoNeb 4 times a day, Symbicort 160/4.52 puffs twice a day, IV Solu-Medrol -Chronic bilateral pulmonary embolism Continue Xarelto -chronic hypoxic respiratory failure from COPD exacerbation: 3 L nasal cannula -Severe protein calorie malnutrition from decreased oral intake Nutritional supplement. Consult dietitian -Left hemiparesis from prior stroke Patient non-ambulatory -Chronic medical debility She is a full assist on ambulatory -Essential hypertension Cozaar 25 mg daily -GERD Protonix 40 mg daily -muscular skeletal pain. Primary osteoarthritis [place] 5/500 one tablet every 6 when necessary -DO NOT RESUSCITATE IV Zosyn. IV Solu-Medrol. Resume home medications. Humidify oxygen. Diflucan. Care was discussed with the patient. Pulmonary consulted. Given the complexity and severity of patient's condition expect the patient to be in the hospital at least for 2 overnights Past Medical History Past Medical History: COPD, CVA/TIA, Pneumonia, Respiratory Disorder Additional Past Medical History / Comment(s): cataracts(sx done), "bruises easily-thin fragile skin", lower dental bridge, CVA September, Covid 10/2020 History of Any Multi-Drug Resistant Organisms: MRSA Date of last positivie culture/infection: 11/14/20 MDRO Source:: MRSA SPUTUM Past Surgical History: Appendectomy, Tonsillectomy Additional Past Surgical History / Comment(s): Bilateral cataracts Past Anesthesia/Blood Transfusion Reactions: No Reported Reaction Past Psychological History: Anxiety Smoking Status: Former smoker Past Alcohol Use History: None Reported Past Drug Use History: None Reported - Past Family History Mother Family Medical History: Myocardial Infarction ([place]) Additional Family Medical History / Comment(s): Mother from a ruptured brain aneurysm, history of a heart attack Father Family Medical History: Diabetes Mellitus Additional Family Medical History / Comment(s): "heart problems" Father from bladder cancer , Medications and Allergies Home Medications Medication Instructions Recorded Confirmed Type Budesonide-Formot 160-4.5 Mcg 2 puff INHALATION RT-BID@0800,1700 06/28/19 04/02/21 History [Symbicort 160-4.5 Mcg Inhaler] Ipratropium-Albuterol Nebulize 3 ml INHALATION RT-QID 10/16/20 04/02/21 History [Duoneb 0.5 mg-3 mg/3 ml Soln] Ipratropium-Albuterol Nebulize 3 ml INHALATION RT-QID PRN 10/16/20 04/02/21 History [Duoneb 0.5 mg-3 mg/3 ml Soln] Lactose-Reduced Food [Ensure Plus] 120 ml PO BID@0800,1700 10/16/20 04/02/21 History Losartan [Cozaar] 25 mg PO DAILY@0800 10/16/20 04/02/21 History Magnesium Hydroxide [Milk of 7,200 mg PO DAILY PRN 10/16/20 04/02/21 History Magnesia Concentrate] Na Phos,M-B/Na Phos,Di-Ba [Fleet 133 ml RECTAL DAILY PRN 10/16/20 04/02/21 History Adult] Pantoprazole [Protonix] 40 mg PO DAILY@0600 10/16/20 04/02/21 History Sodium Chloride [Saline Nasal 1 spray EA NOSTRIL Q2H PRN 10/16/20 04/02/21 H istory [place]] bisacodyL [Dulcolax] 10 mg RECTAL DAILY PRN 10/16/20 04/02/21 History levETIRAcetam ORAL SOLN [Keppra 500 mg PO BID@0800,2100 10/16/20 04/02/21 History Oral Soln] predniSONE 10 mg PO DAILY@0800 10/16/20 04/02/21 History Acetaminophen Tab [Tylenol] 500 mg PO Q6HR PRN tab 10/22/20 04/02/21 Rx Cholecalciferol [Vitamin D3 (25 100 mcg PO DAILY@1700 11/03/20 01/22/22 History Mcg = 1000 Iu)] Melatonin 3 mg PO HS PRN tablet 11/09/20 04/02/21 Rx Rivaroxaban [Xarelto] 20 mg PO DAILY@169911/14/20 04/02/21 History HYDROcodone/APAP 5-325MG [[place] 1 tab PO Q6H #12 tab 11/18/20 04/02/21 Rx 5-325] Ascorbic Acid [Vitamin C] 500 mg PO DAILY@169911/28/20 04/02/21 History Lidocaine 5% Patch [Lidoderm 5% 1 patch TRANSDERM DAILY@0811/28/20 04/02/21 History Patch] ALPRAZolam [Xanax] 0.25 mg PO Q8H PRN 04/02/21 04/02/21 History Albuterol Sulfate [Albuterol 2 puff PO RT-Q6H PRN 04/02/21 04/02/21 History Sulfate Hfa] Dronabinol [Marinol] 2.5 mg PO DAILY@0804/02/21 04/02/21 History Ferrous Sulfate [Feosol] 325 mg PO DAILY@169904/02/21 04/02/21 History Fluticasone Nasal [place] [Flonase 2 spray EA NOSTRIL HS@209904/02/21 04/02/21 History Nasal [place]] guaiFENesin [Mucinex] 600 mg PO BID@0800,2100 04/02/21 04/02/21 History guaiFENesin [guaiFENesin Oral 200 mg PO Q4H PRN 04/02/21 04/02/21 History Solution] Allergies Allergy/AdvReac Type Severity Reaction Status Date / Time aspirin AdvReac excessive Verified 04/02/21 23:01 brusing Physical Exam Vitals: Vital Signs Temp Pulse Pulse Resp BP BP Pulse Ox 04/03/21 08:00 99.0 F 112 H 22 171/92 94 L 04/03/21 04:00 99.0 F 18 139/77 93 L 04/03/21 02:12 97.7 F 18 123/72 100 04/03/21 02:00 16 04/03/21 00:36 79 18 112/65 99 04/03/21 00:00 98.3 F 18 121/66 100 04/02/21 23:21 98.4 F 84 18 115/63 97 04/02/21 22:17 97 18 127/75 98 04/02/21 20:49 100.7 F H 110 H 20 152/85 95 Intake and Output 04/02/21 04/03/21 04/03/21 22:59 06:59 14:59 Output Total 100 Balance -100 Output: Urine 100 Other: Voiding Method Bedpan Weight 41.73 kg 47 kg Results CBC & Chem 7: 04/03/21 12:38 04/03/21 12:38 Labs: Abnormal Lab Results - Last 24 Hours (Table) 04/02/21 04/02/21 Range/Units 21:26 21:26 WBC 23.0 H (3.8-10.6) k/uL Neutrophils # 21.0 H (1.3-7.7) k/uL Lymphocytes # 0.8 L (1.0-4.8) k/uL BUN 18 H (7-17) mg/dL Glucose 119 H (74-99) mg/dL C-Reactive Protein 13.7 H (<1.0) mg/dL Albumin 3.3 L (3.5-5.0) g/dL
[2021-04-03] MEDS: ASCORBIC ACID 500 MG TAB PO SCH (17:04)
[2021-04-03] MEDS: CHOLECALCIFEROL 25 MCG (1000 IU) TABLET PO SCH (17:04)
[2021-04-03] MEDS: FERROUS SULFATE 325 MG TAB PO SCH (17:04)
[2021-04-03] MEDS: methylPREDNISolone SOD SUCCI 40 MG/ML 1 ML VIAL IV SCH (17:18)
[2021-04-03] MEDS: RIVAROXABAN 20 MG TAB PO SCH (17:21)
[2021-04-03] MEDS: FLUTICASONE 50MCG/SPRAY NASAL 16GM EA NOSTRIL SCH (20:58)
--- NOTE | 2021-04-03 22:44 | P.CONS ---
History of Present Illness - Reason for Consult Consult date: 04/03/21 pneumonia Requesting physician: Abdulkadir Rodriguez - Chief Complaint shortness of breath and cough x days - History of Present Illness History of Present Illness : Patient is 80-year-old female with a past medical history significant for COPD on home O2 history of COVID-19 pneumonia in [facility] 2020 history of seizure disorder and bilateral PE patient presenting to the ER yesterday for evaluation of worsening shortness of breath and cough in this patient symptom has been going on for few days before presentation to the hospital the patient denies having any pleuritic chest pain cough has been moderate intensity and denies any hemoptysis on arrival to the ER the patient did have a fever of 100.7 degrees formulae patient did have white count of 23,000 which is up to 25,000 today creatinine has been normal limits of the normal CRP was mildly elevated, and influenza PCR were negative patient did have a chest x-ray pleural reaction and scarring atelectasis at the lung bases into the right upper lobe with mild volume loss patient was started on Rocephin and Zithromax that subsequently has been switched over to Zosyn infectious disease was consulted for further management of antibiotic therapy Review of system: CONSTITUTIONAL: Positive for weakness fever. EYES: No complaint. ENT: No complaint. RESPIRATORY: As per history of present illness CARDIOVASCULAR: No complaint. GENITOURINARY: No complaint. GASTROINTESTINAL: No complaint. MUSCULOSKELETAL: No complaint. INTEGUMENTARY : No complaint. PSYCHOLOGIC: No complaint. ENDOCRINE: No complaint. NEUROLOGIC: No complaint. Past medical history : Reviewed, documented below Past surgical history : Reviewed, documented below Social history: Reviewed, documented below Medications: Reviewed, as documented below EXAMINATION: Vital sigans= Reviewed and documented below GENERAL DESCRIPTION: Elderly female lying in bed, no distress. No tachypnea or accessory muscle of respiration use. HEENT: Shows Pallor , no scleral icterus. Oral mucous membrane is dry. NECK: Trachea central, no thyromegaly. LUNGS: Unlabored breathing. Coarse breath sounds bilaterally. No wheeze or crackle. HEART: S1, S2, regular rate and rhythm. ABDOMEN: Soft, no tenderness , guarding or rigidity EXTREMITIES: No edema feet SKIN: No rash, no masses palpable. NEUROLOGICAL: The patient is awake, alert, oriented x3, mood and affect normal. LABS AND RADIOLOGY: Reviewed results see below Assessment : Patient presented to hospital with increasing shortness of breath and cough in this patient did have a fever on presentation to the hospital with right upper lobe infiltrate and some volume loss patient did have underlying COPD and concern for possible resistant gram-negative pneumonia rather than community-acquired pneumonia Plan: 1-obtain sputum for gram stain and culture 2-continue with Zosyn 3.375 g every 8 hours 3-gentle IV fluid We will follow on clinical condition and cultures to further adjust medication if needed Thank you for this consultation we will follow the patient along with you Past Medical History Past Medical History: COPD, CVA/TIA, Pneumonia, Respiratory Disorder Additional Past Medical History / Comment(s): cataracts(sx done), "bruises easily-thin fragile skin", lower dental bridge, CVA September, Covid 10/2020 History of Any Multi-Drug Resistant Organisms: MRSA Year Discovered:: 11/14/20 MDRO Source:: MRSA SPUTUM Past Surgical History: Appendectomy, Tonsillectomy Additional Past Surgical History / Comment(s): Bilateral cataracts Past Anesthesia/Blood Transfusion Reactions: No Reported Reaction Past Psychological History: Anxiety Smoking Status: Former smoker Past Alcohol Use History: None Reported Past Drug Use History: None Reported - Past Family History Mother Family Medical History: Myocardial Infarction ([place]) Additional Family Medical History / Comment(s): Mother from a ruptured brain aneurysm, history of a heart attack Father Family Medical History: Diabetes Mellitus Additional Family Medical History / Comment(s): "heart problems" Father from bladder cancer , Medications and Allergies Home Medications Medication Instructions Recorded Confirmed Type Budesonide-Formot 160-4.5 Mcg 2 puff INHALATION RT-BID@0800,1700 06/28/19 0 04/02/21 History [Symbicort 160-4.5 Mcg Inhaler] Ipratropium-Albuterol Nebulize 3 ml INHALATION RT-QID 10/16/20 04/02/21 History [Duoneb 0.5 mg-3 mg/3 ml Soln] Ipratropium-Albuterol Nebulize 3 ml INHALATION RT-QID PRN 10/16/20 04/02/21 History [Duoneb 0.5 mg-3 mg/3 ml Soln] Lactose-Reduced Food [Ensure Plus] 120 ml PO BID@0800,1700 10/16/20 04/02/21 History Losartan [Cozaar] 25 mg PO DAILY@0800 10/16/20 04/02/21 History Magnesium Hydroxide [Milk of 7,200 mg PO DAILY PRN 10/16/20 04/02/21 History Magnesia Concentrate] Na Phos,M-B/Na Phos,Di-Ba [Fleet 133 ml RECTAL DAILY PRN 10/16/20 04/02/21 History Adult] Pantoprazole [Protonix] 40 mg PO DAILY@0600 10/16/20 04/02/21 History Sodium Chloride [Saline Nasal 1 spray EA NOSTRIL Q2H PRN 10/16/20 04/02/21 Hi story [place]] bisacodyL [Dulcolax] 10 mg RECTAL DAILY PRN 10/16/20 04/02/21 History levETIRAcetam ORAL SOLN [Keppra 500 mg PO BID@0800,2100 10/16/20 04/02/21 History Oral Soln] predniSONE 10 mg PO DAILY@0800 10/16/20 04/02/21 History Acetaminophen Tab [Tylenol] 500 mg PO Q6HR PRN tab 10/22/20 04/02/21 Rx Cholecalciferol [Vitamin D3 (25 100 mcg PO DAILY@169911/03/20 04/02/21 History Mcg = 1000 Iu)] Melatonin 3 mg PO HS PRN tablet 11/09/20 04/02/21 Rx Rivaroxaban [Xarelto] 20 mg PO DAILY@1700 11/14/20 04/02/21 History HYDROcodone/APAP 5-325MG [[place] 1 tab PO Q6H #12 tab 11/18/20 04/02/21 Rx 5-325] Ascorbic Acid [Vitamin C] 500 mg PO DAILY@1700 11/28/20 04/02/21 History Lidocaine 5% Patch [Lidoderm 5% 1 patch TRANSDERM DAILY@79911/28/20 04/02/21 History Patch] ALPRAZolam [Xanax] 0.25 mg PO Q8H PRN 04/02/21 04/02/21 History Albuterol Sulfate [Albuterol 2 puff PO RT-Q6H PRN 04/02/21 04/02/21 History Sulfate Hfa] Dronabinol [Marinol] 2.5 mg PO DAILY@0800 04/02/21 04/02/21 History Ferrous Sulfate [Feosol] 325 mg PO DAILY@1700 04/02/21 04/02/21 History Fluticasone Nasal [place] [Flonase 2 spray EA NOSTRIL HS@2100 04/02/21 04/02/21 History Nasal [place]] guaiFENesin [Mucinex] 600 mg PO BID@0800,2100 04/02/21 04/02/21 History guaiFENesin [guaiFENesin Oral 200 mg PO Q4H PRN 04/02/21 04/02/21 History Solution] Allergies Allergy/AdvReac Type Severity Reaction Status Date / Time aspirin AdvReac excessive Verified 04/02/21 23:01 brusing Physical Exam Vitals: Vital Signs Temp Pulse Pulse Resp BP BP Pulse Ox 04/03/21 11:32 80 04/03/21 11:23 80 04/03/21 08:00 99.0 F 112 H 22 171/92 94 L 04/03/21 07:30 112 H 22 04/03/21 04:00 99.0 F 18 139/77 93 L 04/03/21 02:12 97.7 F 18 123/72 100 04/03/21 02:00 16 04/03/21 00:36 79 18 112/65 99 04/03/21 00:00 98.3 F 18 121/66 100 04/02/21 23:21 98.4 F 84 18 115/63 97 04/02/21 22:17 97 18 127/75 98 04/02/21 20:49 100.7 F H 110 H 20 152/85 95 Intake and Output 04/02/21 04/03/21 04/03/21 22:59 06:59 14:59 Output Total 100 200 Balance -100 -200 Output: Urine 100 200 Other: Voiding Method Bedpan Bedpan # Bowel Movements 1 Weight 41.73 kg 47 kg Results CBC & Chem 7: 04/03/21 12:38 04/03/21 12:38 Labs: Abnormal Lab Results - Last 24 Hours (Table) 04/02/21 04/02/21 04/03/21 Range/Units 21:26 21:26 12:38 WBC 23.0 H 25.6 H (3.8-10.6) k/uL RBC 3.78 L (3.80-5.40) m/uL Hgb 10.6 L (11.4-16.0) gm/dL Hct 33.8 L (34.0-46.0) % Neutrophils # 21.0 H 24.0 H (1.3-7.7) k/uL Lymphocytes # 0.8 L 0.6 L (1.0-4.8) k/uL BUN 18 H (7-17) mg/dL Creatinine (0.52-1.04) mg/dL Glucose 119 H (74-99) mg/dL Total Bilirubin (0.2-1.3) mg/dL C-Reactive Protein 13.7 H (<1.0) mg/dL Total Protein (6.3-8.2) g/dL Albumin 3.3 L (3.5-5.0) g/dL 04/03/21 Range/Units 12:38 WBC (3.8-10.6) k/uL RBC (3.80-5.40) m/uL Hgb (11.4-16.0) gm/dL Hct (34.0-46.0) % Neutrophils # (1.3-7.7) k/uL Lymphocytes # (1.0-4.8) k/uL BUN (7-17) mg/dL Creatinine 0.51 L (0.52-1.04) mg/dL Glucose 123 H (74-99) mg/dL Total Bilirubin 1.4 H (0.2-1.3) mg/dL C-Reactive Protein (<1.0) mg/dL Total Protein 6.0 L (6.3-8.2) g/dL Albumin 2.7 L (3.5-5.0) g/dL
[2021-04-04] MEDS: methylPREDNISolone SOD SUCCI 40 MG/ML 1 ML VIAL IV SCH ×4 (00:07→23:41)
[2021-04-04] MEDS: SODIUM CHLORIDE 0.9% 1,000 ML IV SCH ×4 (00:07→23:27)
[2021-04-04] MEDS: HYDROcodone/APAP 5-325MG 1 EACH TAB PO SCH ×4 (01:58→20:39)
[2021-04-04] MEDS: PIPERACILLIN-TAZOBACTAM 3.375 GM in SODIUM CHLORIDE 0.9% 100 ML IVPB SCH ×3 (05:21→22:37)
[2021-04-04] MEDS: PANTOPRAZOLE 40 MG TABLET PO SCH (08:06)
[2021-04-04] MEDS: FLUCONAZOLE 100 MG TAB PO SCH (08:06)
[2021-04-04] MEDS: LINEZOLID 600 MG TAB PO SCH ×2 (08:07→20:39)
[2021-04-04] MEDS: levETIRAcetam ORAL SOLN 500 MG/5 ML CUP PO SCH ×2 (08:07→20:38)
[2021-04-04] MEDS: guaiFENesin 600 MG TABLET.ER PO SCH ×2 (08:07→20:39)
[2021-04-04] MEDS: LOSARTAN 25 MG TAB PO SCH (08:07)
[2021-04-04] MEDS: ALPRAZolam 0.25 MG TAB PO PRN (08:22)
[2021-04-04] MEDS: IPRATROPIUM-ALBUTEROL 3 ML NEB INHALATION SCH ×4 (08:27→19:38)
[2021-04-04] MEDS: SYMBICORT 160-4.5 MCG INHALER INHALATION SCH ×2 (08:28→19:38)
[2021-04-04 13:00] VITALS: BMI 17.4
[2021-04-04] MEDS: LIDOCAINE 5% PATCH TOPICAL SCH (15:47)
--- NOTE | 2021-04-04 17:32 | P.PN ---
Subjective Progress Note Date: 04/04/21 Principal diagnosis: Pneumonia. 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 patient follows with Dr. Granados in the pulmonary clinic. Patient marilyn dorantes resides in a local longterm secondary to having a CVA. Patient came into the emergency department brought in by EMS on the 04/02/2021 for evaluation of worsening shortness of breath, cough with purulent phlegm, she was also febrile on presentation with decreased responsiveness and fatigue. Patient was started on antibiotics initially because given a dose of Zithromax in the ER which was later switched to Zosyn. Patient has a area of chronic scarring in the right upper lobe, her chest x-ray in the emergency department showed pleural reaction and scarring and atelectasis in the lung bases, and infiltrate in the right upper lobe with mild volume loss that was increased from prior exam. Patient tested negative for COVID-19, her influenza A and B were also negative. She did have a leukocytosis with white blood cell count of 23, hemoglobin was 11.6, electrolytes are within normal limits, BUN was 18 creatinine 0.59, troponin was negative at less than 0.012, CRP was 13.7, LFTs were within normal limits. She was given some gentle IV hydration in the emergency department, she is getting IV fluids currently infusing at 130 ML per hour, she was started on breathing treatments, was started on antibiotics, she still coughing up some purulent colored phlegm which will be sent for cultures. But overall she appears to be in no acute distress, much more responsive, and more comfortable. On 5 L of oxygen her pulse ox today is 94%, she had low-grade fevers overnight. Progress note dated 04/04/2021. This is a 80-year-old female with a known history of COPD and chronic hypoxemic respiratory failure, and an FEV1 that is 50% of predicted, was admitted with a diagnosis of pneumonia. The patient follows with my partner in the pulmonary clinic. She was seen in consultation yesterday. She is feeling better today. She is a DO NOT RESUSCITATE patient. She states that she feels the 100% better. She is on 3 L nasal cannula, which is what she uses at home, and saline at 50 m L an hour. Her chest x-ray showed right upper lobe infiltrate. The patient has very mild conversational dyspnea. No use of accessory muscles. No audible wheezing. No new laboratory data today. Chest x-ray is reviewed. Objective - Vital Signs Vital signs: Vital Signs Temp 97.5 F L 04/04/21 14:00 Pulse 78 04/04/21 15:38 Resp 16 04/04/21 14:00 BP 113/57 04/04/21 14:00 Pulse Ox 98 04/04/21 14:00 Intake & Output 04/03/21 04/04/21 04/04/21 18:59 06:59 18:59 Intake Total 900 Output Total 600 100 Balance -600 800 Weight 49 kg 49 kg Intake: Intake, IV Titration 800 Amount Piperacillin-Tazobactam 3 200 .375 gm In Sodium Chloride 0.9% 100 ml @ 25 mls/hr IVPB Q8H [facility] Rx#: [id number] Sodium Chloride 0.9% 1, 600 000 ml @ 130 mls/hr IV . Q7H42M [facility] Rx#:[id number] Oral 100 Output: Urine 600 100 Other: Voiding Method Bedpan # Voids 2 # Bowel Movements 1 - Exam No acute distress, oriented 3. Currently on 3 L nasal cannula. Mild conversational dyspnea. No use of accessory muscles. HEENT examination is grossly unremarkable. Neck supple. Full range of motion. No adenopathy thyromegaly or neck vein distention. Cardiovascular examination reveals regular rhythm rate. S1-S2 normal. No S3 or S4. No discernible murmur noted. Heart sounds are distant. Heart rate 78 bpm. Lungs reveal scattered bilateral rhonchi. No wheezes or crackles. Breath sounds equal bilaterally. There is prolongation on forced maneuver. Mild expiratory wheezes on forced maneuver. Abdomen soft bowel sounds are heard. No masses or tenderness. Extremities are intact. No cyanosis clubbing or edema. Skin is without rash or lesion. Neurologic examination is brief but nonfocal. - Labs CBC & Chem 7: 04/03/21 12:38 04/03/21 12:38 Labs: Microbiology - Last 24 Hours (Table) 04/02/21 22:00 Blood Culture - Preliminary Blood No Growth after 24 hours 04/02/21 20:59 Blood Culture - Preliminary Blood No Growth after 24 hours 04/03/21 12:48 Gram Stain - Preliminary Sputum Sputum Culture - Preliminary Assessment and Plan Assessment: Acute on chronic hypoxemic respiratory failure secondary to right upper lobe pneumonia. Severe COPD, with an FEV1 that's 50% of predicted. Prior history of methicillin-resistant staph aureus pneumonia. Prior history of coronavirus infection, October 2020. Chronic hypoxemic respiratory failure, currently on home O2 at 3 L to 4 L/m. Chronic scarring, right upper lobe. Prior history of [id number] tobacco use. Compression fractures, thoracic and lumbar spine. Severe anorexia/cachexia syndrome. History of seizure disorder. History of chronic anxiety. Secondary pulmonary hypertension. History of CVA. Plan: Plan dated 04/04/2021. The patient was seen by infectious diseases, and prescribed Zosyn. The patient is also on updrafts, and Symbicort. Additional recommendations and suggestions are forthcoming. Prognosis is guarded. The patient was also placed on Zyvox. Current microbiology is negative. The patient is a DO NOT RESUSCITATE patient. Overall prognosis remains poor. We will continue to follow make recommendations where appropriate. Time with Patient: Less than 30
[2021-04-04] MEDS: RIVAROXABAN 20 MG TAB PO SCH (17:37)
[2021-04-04] MEDS: CHOLECALCIFEROL 25 MCG (1000 IU) TABLET PO SCH (17:37)
[2021-04-04] MEDS: FERROUS SULFATE 325 MG TAB PO SCH (17:37)
[2021-04-04] MEDS: ASCORBIC ACID 500 MG TAB PO SCH (17:37)
--- NOTE | 2021-04-04 18:56 | P.PN ---
Progress Note - Text Progress Note Date: 04/04/21 Chief Complaint: Cough History of presenting complaint: This is a pleasant 80-year-old patient,from [facility]. followed by Dr. Granado. . 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 Has been nonambulatory. Bilateral pulmonary embolism in October 2020 on xarelto, DO NOT RESUSCITATE Patient now presents with increasing shortness of breath. Has had a cough she says for about 2 weeks. Bringing up green sputum. Very congested. Decreased appetite. Patient is weak and tired. Not sure if she's had a fever. Tired. Patient is a full assist. No hemoptysis. Admitted with right upper lobe pneumonia, started on IV Zosyn. Acute hypoxic respiratory failure on 5 LCannula. Pharyngeal candidiasis. Started on Diflucan April 04: Short of breath but a bit better. Less congested cough. Eating a bit better. Propped up in bed. 3 L nasal cannula. Tired. Review of systems: Was done for constitutional, cardiovascular, GI, pulmonary. relevant finding as above Active Medications Hydrocodone Bitart/Acetaminophen (Hydrocodone/Apap 5-325mg 1 Each Tab) 1 each PO Q6H [facility] Last Admin: 04/04/21 15:43 Dose: Not Given Documented by: Albuterol Sulfate (Albuterol Hfa Inhaler) 2 puff INHALATION RT-Q6H PRN PRN Reason: Shortness Of Breath Albuterol/Ipratropium (Ipratropium-Albuterol 3 Ml Neb) 3 ml INHALATION RT-QID [facility] Last Admin: 04/04/21 15:30 Dose: 3 ml Documented by: Alprazolam (Alprazolam 0.25 Mg Tab) 0.25 mg PO Q8H PRN PRN Reason: Anxiety/Restlessness Last Admin: 04/04/21 08:22 Dose: 0.25 mg Documented by: Ascorbic Acid (Ascorbic Acid 500 Mg Tab) 500 mg PO DAILY@1700 [facility] Last Admin: 04/04/21 17:37 Dose: 500 mg Documented by: Budesonide/Formoterol Fumarate (Symbicort 160-4.5 Mcg Inhaler) 2 puff INHALATION RT-BID@0800,1700 [facility] Last Admin: 04/04/21 08:28 Dose: 2 puff Documented by: Cholecalciferol (Cholecalciferol 25 Mcg (1000 Iu) Tablet) 100 mcg PO DAILY@1700 [facility] Last Admin: 04/04/21 17:37 Dose: 100 mcg Documented by: Dronabinol (Dronabinol 2.5 Mg Cap) 2.5 mg PO DAILY@0800 [facility] Last Admin: 04/04/21 08:07 Dose: 2.5 mg Documented by: Ferrous Sulfate (Ferrous Sulfate 325 Mg Tab) 325 mg PO DAILY@1700 [facility] Last Admin: 04/04/21 17:37 Dose: 325 mg Documented by: Fluconazole (Fluconazole 100 Mg Tab) 100 mg PO DAILY [facility] Last Admin: 04/04/21 08:06 Dose: 100 mg Documented by: Fluticasone Propionate (Fluticasone 50mcg/[place] Nasal 16gm) 2 spray EA NOSTRIL HS@2099 [facility] Last Admin: 04/03/21 20:58 Dose: 2 spray Documented by: Guaifenesin (Guaifenesin 600 Mg Tablet.Er) 600 mg PO BID@08,2099 [facility] Last Admin: 04/04/21 08:07 Dose: 600 mg Documented by: Sodium Chloride (Saline 0.9%) 1,000 mls @ 130 mls/hr IV .Q7H42M [facility] Last Admin: 04/04/21 05:50 Dose: Not Given Documented by: Piperacillin Sod/Tazobactam (Sod 3.375 gm/ Sodium Chloride) 100 mls @ 25 mls/hr IVPB Q8H [facility] Last Admin: 04/04/21 15:42 Dose: 25 mls/hr Documented by: Levetiracetam (Levetiracetam Oral Soln 500 Mg/5 Ml Cup) 500 mg PO BID@0800,2100 [facility] Last Admin: 04/04/21 08:07 Dose: 500 mg Documented by: Lidocaine (Lidocaine 5% Patch) 1 patch TOPICAL DAILY@08 [facility]; Protocol Last Admin: 04/04/21 15:47 Dose: Not Given Documented by: Linezolid (Linezolid 600 Mg Tab) 600 mg PO Q12HR [facility] Last Admin: 04/04/21 08:07 Dose: 600 mg Documented by: Losartan Potassium (Losartan 25 Mg Tab) 25 mg PO DAILY@0800 [facility] Last Admin: 04/04/21 08:07 Dose: 25 mg Documented by: Melatonin (Melatonin 3 Mg Tablet) 3 mg PO HS PRN PRN Reason: Insomnia Methylprednisolone Sodium Succinate (Methylprednisolone Sod Succi 40 Mg/Ml 1 Ml Vial) 40 mg IV Q8HR [facility] Last Admin: 04/04/21 15:42 Dose: 40 mg Documented by: Miscellaneous Information (Pneumonia Protocol Utilized 1 Each [facility]) 1 each PO ONCE PRN PRN Reason: Per Protocol Pantoprazole Sodium (Pantoprazole 40 Mg Tablet) 40 mg PO AC-BRKFST [facility] Last Admin: 04/04/21 08:06 Dose: 40 mg Documented by: Rivaroxaban (Rivaroxaban 20 Mg Tab) 20 mg PO DAILY@1700 [facility]; Protocol Last Admin: 04/04/21 17:37 Dose: 20 mg Documented by: Sodium Chloride (Sodium Chloride 0.65% Nasal [place] 44 Ml Btl) 1 spray INTRANASAL Q2H PRN PRN Reason: Congestion Past medical history to include: COPD, stroke with left-sided weakness, home oxygen 3 L, bilateral pulmonary embolism, protein calorie malnutrition. COVID-19 Social history: smoking from the age of 16 up to 2019. One pack a day. No alcohol. at [facility]. Family history: Mother from a ruptured brain aneurysm. Coronary artery disease Physical examination: VITAL SIGNS: 97.5, 95, 16, 113/57, 98% on 3 L GENERAL: loss of subcutaneous fat and muscle mass, prominent bones. Sitting up in bed. Short of breath. Lives tired appearing. EYES: Pupils equal. Conjunctiva normal. HEENT: External appearance of nose and ears normal, oral cavity grossly normal. White patches in the pharynx NECK: JVD not raised; masses not palpable. HEART: First and second heart sounds are normal; no edema. LUNGS: Respiratory rate increase; decrease coarse crackles on the right side, prolonged expiration. ABDOMEN: Soft, nontender, liver spleen not palpable, no masses palpable. PSYCH: Alert and oriented x3; mood and affect anxiousl. MUSCULOSKELETAL:No Clubbing/cyanosis;muscles-grossly intact INVESTIGATIONS, reviewed in the clinical context: April 05: White count 25.6 hemoglobin 10.6 potassium 3.9 creatinine 0.51 April 03: White count 25.6 hemoglobin 10.6 platelets 3603.9 BUN 15 creatinine 0.5 bun albumin 2.7 Coronavirus [/influenza type A/influenza type B: Not detected EKG tracing personally reviewed by me-normal sinus rhythm, rate 108, some ST segment depression in inferolateral leads Chest x-ray film personally reviewed by me-right upper lobe infiltrate. Advanced emphysema. Some chronic fibrotic findings Assessment and plan: -Right upper lobe pneumonia, suspect gram-negative organism: Slow to respond IV Zosyn. Sputum for Gram stain and culture. Mucinex. -Acute hypoxic respiratory failure from pneumonia/COPD exacerbation 3 L nasal cannula -Pharyngeal candidiasis Diflucan -Normocytic anemia of chronic disease. Follow [facility] -Chronic advanced prednisone dependent COPD in a previous smoker: DuoNeb 4 times a day, Symbicort 160/4.52 puffs twice a day, IV Solu-Medrol -Chronic bilateral pulmonary embolism Continue Xarelto -chronic hypoxic respiratory failure from COPD exacerbation: 3 L nasal cannula -Severe protein calorie malnutrition from decreased oral intake Nutritional supplement. Consult dietitian -Left hemiparesis from prior stroke Patient non-ambulatory -Chronic medical debility She is a full assist non- ambulatory -Essential hypertension Cozaar 25 mg daily -GERD Protonix 40 mg daily -muscular skeletal pain. Primary osteoarthritis [place] 5/500 one tablet every 6 when necessary -DO NOT RESUSCITATE IV Zosyn. IV Solu-Medrol. Humidify oxygen. Diflucan. Care was discussed with the patient. Continue other medications.
--- NOTE | 2021-04-04 19:54 | CDI ---
Documentation Clarification Form Date: 04/04/2021 07:24:39 PM From: Vilma Arias RN CCDS Admit Date: 04/02/2021 11:36:00 PM Patient Name: Chelsea Bland Visit Number: [id number] Discharge Date: ATTENTION: The Clinical Documentation Specialists (CDI) and [facility] Coding Staff appreciate your assistance in clarifying documentation. Please respond to the clarification below the line at the bottom and electronically sign. The CDI & [facility] Coding staff will review the response and follow-up if needed. Please note: Queries are made part of the Legal Health Record. If you have any questions, please contact the author of this message via ITS. Dr. Abdulkadir Rodriguez The patient presented with the following clinical indicators. Tachycardia of 110, WBC of 23.0 on admission. Additional clarification regarding the etiology/cause of the clinical indicators is requested. ED assessment: based on presentation and clinical evaluation. Will treat for possible pseudomonas pneumonia. Right upper lobe pneumonia, severe sepsis 04/06 ID Progress note: The patient presented to hospital with sepsis in this patient did have a fever and elevated white count is concerning for pneumonia for pneumonia question of aspiration, gram-negative patient sputum has been usual respiratory delvis and blood cultures had been negative. History/Risk Factors: COPD, Pneumonia, CVA, Covid-19 11/2020 Clinical Indicators: 80-year-old female sent in after having increasing shortness of breath for the last week with productive cough and was febrile, decreased responsiveness and fatigue. 04/02 Vital signs 152/85 110 20 100.7 04/02 WBC 23.0, 04/02 Lactic acid: 1.0 Coronavirus not detected; Influenza Type A and type B not detected Blood cultures: Vitals signs: Treatment: Tylenol 650 MG PO Once (04/02) Zosyn 3.375 GM Q 8 HRS 04/02 Azithromycin 500 MG IVPB Once 04/02 Blood cultures: Pending 04/02 Sputum Gram Stain- Pending .9NS 1000 MLS Bolus (04/02 In your professional opinion, please clarify if these findings signify one of the following conditions: [ ] Sepsis POA [ ] Sepsis and severe sepsis ruled out [ ] Other, please specify [ ] Unable to determine SIRS Criteria: 2 or more of the following may indicate SIRS -Temperature < 96.8F (36C) or > 101.0F (38.3C) -Heart Rate > 90 bpm -Respiratory Rate > 20 breaths/min or PaCO2 < 32 mmHg -White Blood Cell Count > 12,000 or < 4,000 cells/mm3 or > 10% bands (Template Last Reviewed: April 2020) Sepsis, POA MTDD
[2021-04-04] MEDS: FLUTICASONE 50MCG/SPRAY NASAL 16GM EA NOSTRIL SCH (20:40)
--- NOTE | 2021-04-04 22:23 | P.PN ---
Subjective Progress Note Date: 04/04/21 Principal diagnosis: Pneumonia Patient is a 80-year-old female, presented to the hospital with increasing shortness of breath and cough and this patient has been diagnosed with a pneumonia consult for possible gram-negative. On today's evaluation that is 04/04/2021, the patient denies having any fever or any chills, the patient is breathing slightly comfortably, patient denies having any chest pain no worsening cough or sputum production no abdominal pain or diarrhea Objective - Vital Signs Vital signs: Vital Signs Temp 97.6 F 04/04/21 19:15 Pulse 76 04/04/21 19:50 Resp 18 04/04/21 19:15 BP 123/78 04/04/21 19:15 Pulse Ox 98 04/04/21 21:00 Intake & Output 04/04/21 04/04/21 04/05/21 06:59 18:59 06:59 Intake Total 900 200 Output Total 100 Balance 800 200 Weight 49 kg 49 kg Intake: Intake, IV Titration 800 100 Amount Piperacillin-Tazobactam 3 200 100 .375 gm In Sodium Chloride 0.9% 100 ml @ 25 mls/hr IVPB Q8H [facility] Rx#: [id number] Sodium Chloride 0.9% 1, 600 000 ml @ 130 mls/hr IV . Q7H42M [facility] Rx#:[id number] Oral 100 100 Output: Urine 100 Other: Voiding Method External Catheter # Voids 2 - Exam GENERAL DESCRIPTION:[ Patient is awake and alert in no distress] HEENT: [Oral mucosa is dry and no pharyngeal erythema] RESPIRATORY SYSTEM: [Unlabored breathing Decreased breath sounds at the Base] CARDIA VASCULAR SYSTEM: [S1-S2 regular rate and rhythm no murmur] GI: [Abdominal soft there's no tenderness no organomegaly] EXTREMITIES: [No edema feet] - Labs CBC & Chem 7: 04/03/21 12:38 04/03/21 12:38 Labs: Microbiology - Last 24 Hours (Table) 04/02/21 22:00 Blood Culture - Preliminary Blood No Growth after 24 hours 04/02/21 20:59 Blood Culture - Preliminary Blood No Growth after 24 hours 04/03/21 12:48 Gram Stain - Preliminary Sputum Sputum Culture - Preliminary Assessment and Plan (1) Right upper lobe pneumonia Current Visit: Yes Status: Acute Code(s): J18.9 - PNEUMONIA, UNSPECIFIED ORGANISM SNOMED Code(s): 678697119 Plan: 1patient presented to hospital with sepsis in this patient did have a fever and elevated white count is concerning for pneumonia question of aspiration/gram- negative patient is currently covered with the Zosyn to continue while waiting for the sputum cultures to finalize Time with Patient: Less than 30
[2021-04-05] MEDS: SODIUM CHLORIDE 0.9% 1,000 ML IV SCH ×3 (03:11→21:16)
[2021-04-05] MEDS: HYDROcodone/APAP 5-325MG 1 EACH TAB PO SCH ×4 (03:18→20:00)
[2021-04-05] MEDS: PIPERACILLIN-TAZOBACTAM 3.375 GM in SODIUM CHLORIDE 0.9% 100 ML IVPB SCH ×3 (05:19→22:27)
[2021-04-05] MEDS: LOSARTAN 25 MG TAB PO SCH (07:57)
[2021-04-05] MEDS: guaiFENesin 600 MG TABLET.ER PO SCH ×2 (07:57→20:00)
[2021-04-05] MEDS: FLUCONAZOLE 100 MG TAB PO SCH (07:57)
[2021-04-05] MEDS: PANTOPRAZOLE 40 MG TABLET PO SCH (07:57)
[2021-04-05] MEDS: LINEZOLID 600 MG TAB PO SCH ×2 (07:58→20:00)
[2021-04-05] MEDS: levETIRAcetam ORAL SOLN 500 MG/5 ML CUP PO SCH ×2 (07:59→20:00)
[2021-04-05] MEDS: methylPREDNISolone SOD SUCCI 40 MG/ML 1 ML VIAL IV SCH ×3 (08:00→23:40)
[2021-04-05] MEDS: LIDOCAINE 5% PATCH TOPICAL SCH (08:00)
[2021-04-05] MEDS: IPRATROPIUM-ALBUTEROL 3 ML NEB INHALATION SCH ×4 (09:30→19:56)
[2021-04-05] MEDS: SYMBICORT 160-4.5 MCG INHALER INHALATION SCH (09:30)
[2021-04-05] MEDS: ALPRAZolam 0.25 MG TAB PO PRN (10:02)
--- NOTE | 2021-04-05 13:02 | XR ---
EXAMINATION TYPE: XR chest 1V portable DATE OF EXAM: 04/05/2021 HISTORY: Shortness of breath. COMPARISON: 04/03/2021 TECHNIQUE: Single view of the chest is submitted. FINDINGS: Underlying emphysematous changes persist. Patchy infiltrate right upper lobe as well as increased den sity left medial lung base may reflect underlying pneumonia. The heart is stable. Hilar and mediastinal structures are within normal limits. Degenerative changes are seen of the dorsal spine. IMPRESSION: 1. Stable chest.
--- NOTE | 2021-04-05 13:22 | P.PN ---
Subjective Progress Note Date: 04/05/21 This is a 80-year-old white female patient with known history of COPD on home oxygen at 4 L, baseline FEV1 of less than 50% of predicted, history of COVID-19 pneumonia in October 2020, previous episodes of pneumonia, including MRSA pneumonia, severe anorexia/cachexia syndrome related to advanced COPD, history of seizure disorder, history of bilateral PEs on chronic anticoagulation in the form of Xarelto, chronic anxiety, pulmonary hypertension related to advanced COPD. patient follows with Dr. Granados in the pulmonary clinic. Patient currently resides in a local custodial secondary to having a CVA. Patient came into the emergency department brought in by EMS on the 04/02/2021 for evaluation of worsening shortness of breath, cough with purulent phlegm, she was also febrile on presentation with decreased responsiveness and fatigue. Patient was started on antibiotics initially because given a dose of Zithromax in the ER which was later switched to Zosyn. Patient has a area of chronic scarring in the right upper lobe, her chest x-ray in the emergency department showed pleural reaction and scarring and atelectasis in the lung bases, and infiltrate in the right upper lobe with mild volume loss that was increased from prior exam. Patient tested negative for COVID-19, her influenza A and B were also negative. She did have a leukocytosis with white blood cell count of 23, hemoglobin was 11.6, electrolytes are within normal limits, BUN was 18 creatinine 0.59, troponin was negative at less than 0.012, CRP was 13.7, LFTs were within normal limits. She was given some gentle IV hydration in the emergency department, she is getting IV fluids currently infusing at 130 ML per hour, she was started on breathing treatments, was started on antibiotics, she still coughing up some purulent colored phlegm which will be sent for cultures. But overall she appears to be in no acute distress, much more responsive, and more comfortable. On 5 L of oxygen her pulse ox today is 94%, she had low-grade fevers overnight. Progress note dated 04/04/2021. This is a 80-year-old female with a known history of COPD and chronic hypoxemic respiratory failure, and an FEV1 that is 50% of predicted, was admitted with a diagnosis of pneumonia. The patient follows with my partner in the pulmonary clinic. She was seen in consultation yesterday. She is feeling better today. She is a DO NOT RESUSCITATE patient. She states that she feels the 100% better. She is on 3 L nasal cannula, which is what she uses at home, and saline at 50 mL an hour. Her chest x-ray showed right upper lobe infiltrate. The patient has very mild conversational dyspnea. No use of accessory muscles. No audible wheezing. No new laboratory data today. Chest x-ray is reviewed. The patient is seen today 04/05/2021 in follow-up on the regular medical floor. She is currently sitting up in bed. Talking on the phone. No worsening shortness of breath, cough or congestion. Maintaining O2 saturations in the 90s on 4 L/m per nasal cannula. She remains afebrile. Hemodynamically stable. Follow-up chest x-ray reveals underlying emphysema. Patchy infiltrate in the right upper lobe remains. Blood cultures revealed no growth. Sputum culture revealed no growth. She is continued on Symbicort, DuoNeb inhalations, IV Solu- Medrol. Remains on antibiotics in the form of Zosyn and Zyvox. Anticoagulated with Xarelto. Objective - Vital Signs Vital signs: Vital Signs Temp 98 F 04/05/21 07:17 Pulse 85 04/05/21 12:09 Resp 22 04/05/21 09:43 BP 158/76 04/05/21 07:17 Pulse Ox 97 04/05/21 07:17 Intake & Output 04/04/21 04/05/21 04/05/21 18:59 06:59 18:59 Intake Total 540 236 Output Total 250 Balance 290 236 Weight 49 kg Intake: Intake, IV Titration 200 Amount Piperacillin-Tazobactam 3 200 .375 gm In Sodium Chloride 0.9% 100 ml @ 25 mls/hr IVPB Q8H [facility] Rx#: [id number] Oral 340 236 Output: Urine 250 Other: Voiding Method External Catheter External Catheter - Exam GENERAL EXAM: Alert, frail, pleasant 80-year-old female, on 4 L/m per nasal cannula, comfortable in no apparent distress. HEAD: Normocephalic. EYES: Normal reaction of pupils, equal size. NOSE: Clear with pink turbinates. THROAT: No erythema or exudates. NECK: No masses, no JVD. CHEST: No chest wall deformity. LUNGS: Equal air entry with bilateral scattered rhonchi. CVS: S1 and S2 normal with no audible murmur, regular rhythm. ABDOMEN: No hepatosplenomegaly, normal bowel sounds, no guarding or rigidity. SPINE: No scoliosis or deformity SKIN: No rashes CENTRAL NERVOUS SYSTEM: No focal deficits, tone is normal in all 4 extremities. EXTREMITIES: There is no peripheral edema. No clubbing, no cyanosis. Perip heral pulses are intact. - Labs CBC & Chem 7: 04/03/21 12:38 04/03/21 12:38 Labs: Microbiology - Last 24 Hours (Table) 04/03/21 12:48 Gram Stain - Final Sputum Sputum Culture - Final 04/02/21 22:00 Blood Culture - Preliminary Blood No Growth after 48 hours 04/02/21 20:59 Blood Culture - Preliminary Blood No Growth after 48 hours Assessment and Plan Assessment: 1 Acute on chronic hypoxemic respiratory failure secondary to right upper lobe pneumonia. 2 Severe COPD, with an FEV1 that's 50% of predicted. 3 Prior history of methicillin-resistant staph aureus pneumonia. 4 Prior history of coronavirus infection, October 2020. 5 Chronic hypoxemic respiratory failure, currently on home O2 at 3 L to 4 L/m. 6 Chronic scarring, right upper lobe. 7 Prior history of [id number] tobacco use. 8 Compression fractures, thoracic and lumbar spine. 9 Severe anorexia/cachexia syndrome. 10 History of seizure disorder. 11 History of chronic anxiety. 12 Secondary pulmonary hypertension. 13 History of CVA. Plan: The patient was seen and evaluated Chest x-ray reviewed Continue Zosyn and Zyvox Continue bronchodilators, IV Solu-Medrol Titrate the FiO2 as tolerated DO NOT RESUSCITATE/DO NOT INTUBATE CODE STATUS We will continue to follow I, the cosigning physician, performed a history & physical examination of the patient. Lungs sounds with bilateral scattered rhonchi. Maintaining good O2 saturations in the 90s on 4 L/m per nasal cannula. I discussed the assessment and plan of care with my nurse practitioner, Darlene Underwood. I attest to the above note as dictated by her.
--- NOTE | 2021-04-05 13:58 | P.PN ---
Progress Note - Text Progress Note Date: 04/05/21 Chief Complaint: Cough History of presenting complaint: This is a pleasant 80-year-old patient,from [facility]. followed by Dr. Granado. . 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 Has been nonambulatory. Bilateral pulmonary embolism in October 2020 on xarelto, DO NOT RESUSCITATE Patient now presents with increasing shortness of breath. Has had a cough she says for about 2 weeks. Bringing up green sputum. Very congested. Decreased appetite. Patient is weak and tired. Not sure if she's had a fever. Tired. Patient is a full assist. No hemoptysis. Admitted with right upper lobe pneumonia, started on IV Zosyn. Acute hypoxic respiratory failure on 5 LCannula. Pharyngeal candidiasis. Started on Diflucan April 04: Short of breath but a bit better. Less congested cough. Eating a bit better. Propped up in bed. 3 L nasal cannula. Tired. April 05: Short of breath. Tired. Decreased appetite. 4 L nasal cannula. Review of systems: Was done for constitutional, cardiovascular, GI, pulmonary. relevant finding as above Active Medications Hydrocodone Bitart/Acetaminophen (Hydrocodone/Apap 5-325mg 1 Each Tab) 1 each PO Q6H [facility] Last Admin: 04/05/21 08:07 Dose: 1 each Documented by: Albuterol Sulfate (Albuterol Hfa Inhaler) 2 puff INHALATION RT-Q6H PRN PRN Reason: Shortness Of Breath Albuterol/Ipratropium (Ipratropium-Albuterol 3 Ml Neb) 3 ml INHALATION RT-QID [facility] Last Admin: 04/05/21 11:57 Dose: 3 ml Documented by: Alprazolam (Alprazolam 0.25 Mg Tab) 0.25 mg PO Q8H PRN PRN Reason: Anxiety/Restlessness Last Admin: 04/05/21 10:02 Dose: 0.25 mg Documented by: Ascorbic Acid (Ascorbic Acid 500 Mg Tab) 500 mg PO DAILY@1700 [facility] Last Admin: 04/04/21 17:37 Dose: 500 mg Documented by: Budesonide/Formoterol Fumarate (Symbicort 160-4.5 Mcg Inhaler) 2 puff INHALATION RT-BID@0800,1700 [facility] Last Admin: 04/05/21 09:30 Dose: 2 puff Documented by: Cholecalciferol (Cholecalciferol 25 Mcg (1000 Iu) Tablet) 100 mcg PO DAILY@1700 [facility] Last Admin: 04/04/21 17:37 Dose: 100 mcg Documented by: Dronabinol (Dronabinol 2.5 Mg Cap) 2.5 mg PO DAILY@0800 [facility] Last Admin: 04/05/21 08:50 Dose: 2.5 mg Documented by: Ferrous Sulfate (Ferrous Sulfate 325 Mg Tab) 325 mg PO DAILY@1700 [facility] Last Admin: 04/04/21 17:37 Dose: 325 mg Documented by: Fluconazole (Fluconazole 100 Mg Tab) 100 mg PO DAILY [facility] Last Admin: 04/05/21 07:57 Dose: 100 mg Documented by: Fluticasone Propionate (Fluticasone 50mcg/[place] Nasal 16gm) 2 spray EA NOSTRIL HS@2099 [facility] Last Admin: 04/04/21 20:40 Dose: 2 spray Documented by: Guaifenesin (Guaifenesin 600 Mg Tablet.Er) 600 mg PO BID@0800,2100 [facility] Last Admin: 04/05/21 07:57 Dose: 600 mg Documented by: Sodium Chloride (Saline 0.9%) 1,000 mls @ 130 mls/hr IV .Q7H42M [facility] Last Admin: 04/05/21 03:11 Dose: Not Given Documented by: Piperacillin Sod/Tazobactam (Sod 3.375 gm/ Sodium Chloride) 100 mls @ 25 mls/hr IVPB Q8H [facility] Last Admin: 04/05/21 05:19 Dose: 25 mls/hr Documented by: Levetiracetam (Levetiracetam Oral Soln 500 Mg/5 Ml Cup) 500 mg PO BID@0800,2100 [facility] Last Admin: 04/05/21 07:59 Dose: 500 mg Documented by: Lidocaine (Lidocaine 5% Patch) 1 patch TOPICAL DAILY@0800 [facility]; Protocol Last Admin: 04/05/21 08:00 Dose: 1 patch Documented by: Linezolid (Linezolid 600 Mg Tab) 600 mg PO Q12HR [facility] Last Admin: 04/05/21 07:58 Dose: 600 mg Documented by: Losartan Potassium (Losartan 25 Mg Tab) 25 mg PO DAILY@0800 [facility] Last Admin: 04/05/21 07:57 Dose: 25 mg Documented by: Melatonin (Melatonin 3 Mg Tablet) 3 mg PO HS PRN PRN Reason: Insomnia Methylprednisolone Sodium Succinate (Methylprednisolone Sod Succi 40 Mg/Ml 1 Ml Vial) 40 mg IV Q8HR [facility] Last Admin: 04/05/21 08:00 Dose: 40 mg Documented by: Miscellaneous Information (Pneumonia Protocol Utilized 1 Each [facility]) 1 each PO ONCE PRN PRN Reason: Per Protocol Pantoprazole Sodium (Pantoprazole 40 Mg Tablet) 40 mg PO AC-BRKFST [facility] Last Admin: 04/05/21 07:57 Dose: 40 mg Documented by: Rivaroxaban (Rivaroxaban 20 Mg Tab) 20 mg PO DAILY@1700 [facility]; Protocol Last Admin: 04/04/21 17:37 Dose: 20 mg Documented by: Sodium Chloride (Sodium Chloride 0.65% Nasal [place] 44 Ml Btl) 1 spray INTRANASAL Q2H PRN PRN Reason: Congestion Past medical history to include: COPD, stroke with left-sided weakness, home oxygen 3 L, bilateral pulmonary embolism, protein calorie malnutrition. COVID-19 Social history: smoking from the age of 16 up to 2019. One pack a day. No alcohol. at [facility]. Family history: Mother from a ruptured brain aneurysm. Coronary artery disease Physical examination: VITAL SIGNS: 98.2, 72, 16, 1 37 x 79, 97% on 4 L GENERAL: loss of subcutaneous fat and muscle mass, prominent bones. reclining in bed. Short of breath. Tired EYES: Pupils equal. Conjunctiva normal. HEENT: External appearance of nose and ears normal, oral cavity grossly normal. White patches in the pharynx NECK: JVD not raised; masses not palpable. HEART: First and second heart sounds are normal; no edema. LUNGS: Respiratory rate increase; decrease coarse crackles on the right side, prolonged expiration. ABDOMEN: Soft, nontender, liver spleen not palpable, no masses palpable. PSYCH: Alert and oriented x3; mood and affect anxious. MUSCULOSKELETAL:No Clubbing/cyanosis;muscles-grossly intact INVESTIGATIONS, reviewed in the clinical context: April 04: White count 25.6 hemoglobin 10.6 potassium 3.9 creatinine 0.51 April 03: White count 25.6 hemoglobin 10.6 platelets 3603.9 BUN 15 creatinine 0.5 bun albumin 2.7 Coronavirus [/influenza type A/influenza type B: Not detected EKG tracing personally reviewed by me-normal sinus rhythm, rate 108, some ST segment depression in inferolateral leads Chest x-ray film personally reviewed by me-right upper lobe infiltrate. Advanced emphysema. Some chronic fibrotic findings Assessment and plan: -Right upper lobe pneumonia, suspect gram-negative organism: Slow to respond IV Zosyn. Sputum for Gram stain and culture: Unremarkable. Mucinex. -Acute hypoxic respiratory failure from pneumonia/COPD exacerbation: Worsening 4 L nasal cannula -Pharyngeal candidiasis Diflucan -Normocytic anemia of chronic disease. Follow H&H -Chronic advanced prednisone dependent COPD in a previous smoker: DuoNeb 4 times a day, stop Symbicort ., IV Solu-Medrol. Add Perforomist and Pulmicort -Chronic bilateral pulmonary embolism Continue Xarelto -chronic hypoxic respiratory failure from COPD exacerbation: 3 L nasal cannula -Severe protein calorie malnutrition from decreased oral intake Nutritional supplement. Consult dietitian -Left hemiparesis from prior stroke Patient non-ambulatory -Chronic medical debility She is a full assist non- ambulatory -Essential hypertension Cozaar 25 mg daily -GERD Protonix 40 mg daily -muscular skeletal pain. Primary osteoarthritis [place] 5/500 one tablet every 6 when necessary -DO NOT RESUSCITATE IV Zosyn. IV Solu-Medrol. Diflucan. DC Symbicort. Add nebulized Perforomist and Pulmicort. Discussed with patient.
[2021-04-05] MEDS: CHOLECALCIFEROL 25 MCG (1000 IU) TABLET PO SCH (17:45)
[2021-04-05] MEDS: FERROUS SULFATE 325 MG TAB PO SCH (17:45)
[2021-04-05] MEDS: ASCORBIC ACID 500 MG TAB PO SCH (17:46)
[2021-04-05] MEDS: RIVAROXABAN 20 MG TAB PO SCH (17:46)
[2021-04-05] MEDS: BUDESONIDE 1 MG/2 ML NEBU INHALATION SCH (19:56)
[2021-04-05] MEDS: FORMOTEROL FUMARATE 20 MCG/2 ML NEBU INHALATION SCH (19:56)
[2021-04-05] MEDS: FLUTICASONE 50MCG/SPRAY NASAL 16GM EA NOSTRIL SCH (20:01)
--- NOTE | 2021-04-05 22:11 | P.PN ---
Subjective Progress Note Date: 04/05/21 Principal diagnosis: Pneumonia Patient is a 80-year-old female, presented to the hospital with increasing shortness of breath and cough and this patient has been diagnosed with a pneumonia consult for possible gram-negative. On today's evaluation that is 04/05/2021, the patient remains to be afebrile, the patient was complaining of more shortness of breath this morning, patient denies having any chest pain no worsening cough or sputum production no abdominal pain or diarrhea Objective - Vital Signs Vital signs: Vital Signs Temp 97.6 F 04/05/21 19:20 Pulse 80 04/05/21 20:23 Resp 17 04/05/21 19:20 BP 137/81 04/05/21 19:20 Pulse Ox 100 04/05/21 19:20 Intake & Output 04/05/21 04/05/21 04/06/21 06:59 18:59 06:59 Intake Total 540 708 Output Total 250 400 Balance 290 308 Intake: Intake, IV Titration 200 Amount Piperacillin-Tazobactam 3 200 .375 gm In Sodium Chloride 0.9% 100 ml @ 25 mls/hr IVPB Q8H [facility] Rx#: [id number] Oral 340 708 Output: Urine 250 400 Other: Voiding Method External Catheter External Catheter External Catheter # Bowel Movements 1 - Exam GENERAL DESCRIPTION:[ Patient is awake and alert in no distress] HEENT: [Oral mucosa is dry and no pharyngeal erythema] RESPIRATORY SYSTEM: [Unlabored breathing Decreased breath sounds at the Base] CARDIA VASCULAR SYSTEM: [S1-S2 regular rate and rhythm no murmur] GI: [Abdominal soft there's no tenderness no organomegaly] EXTREMITIES: [No edema feet] - Labs CBC & Chem 7: 04/03/21 12:38 04/03/21 12:38 Labs: Microbiology - Last 24 Hours (Table) 04/03/21 12:48 Gram Stain - Final Sputum Sputum Culture - Final 04/02/21 22:00 Blood Culture - Preliminary Blood No Growth after 48 hours 04/02/21 20:59 Blood Culture - Preliminary Blood No Growth after 48 hours Assessment and Plan (1) Right upper lobe pneumonia Current Visit: Yes Status: Acute Code(s): J18.9 - PNEUMONIA, UNSPECIFIED ORGANISM SNOMED Code(s): 695008361 Plan: 1patient presented to hospital with sepsis in this patient did have a fever and elevated white count is concerning for pneumonia question of aspiration/gram- negative patient sputum has been usual respiratory delvis and blood culture had been negative, patient to continue w with the, will transition to oral antibiotics on discharge 2-leukocytosis more likely steroid effect as no evidence of any worsening infection Time with Patient: Less than 30
[2021-04-06] MEDS: SODIUM CHLORIDE 0.9% 1,000 ML IV SCH ×3 (03:39→22:51)
[2021-04-06] MEDS: HYDROcodone/APAP 5-325MG 1 EACH TAB PO SCH ×4 (03:39→22:51)
[2021-04-06] MEDS: PIPERACILLIN-TAZOBACTAM 3.375 GM in SODIUM CHLORIDE 0.9% 100 ML IVPB SCH ×3 (05:09→22:50)
[2021-04-06] MEDS: ALPRAZolam 0.25 MG TAB PO PRN (06:00)
[2021-04-06] MEDS: BUDESONIDE 1 MG/2 ML NEBU INHALATION SCH ×2 (07:28→21:10)
[2021-04-06] MEDS: IPRATROPIUM-ALBUTEROL 3 ML NEB INHALATION SCH ×4 (07:28→21:09)
[2021-04-06] MEDS: guaiFENesin 600 MG TABLET.ER PO SCH ×2 (07:33→22:52)
[2021-04-06] MEDS: LIDOCAINE 5% PATCH TOPICAL SCH (07:33)
[2021-04-06] MEDS: LOSARTAN 25 MG TAB PO SCH (07:33)
[2021-04-06] MEDS: PANTOPRAZOLE 40 MG TABLET PO SCH (07:33)
[2021-04-06] MEDS: FLUCONAZOLE 100 MG TAB PO SCH (07:33)
[2021-04-06] MEDS: methylPREDNISolone SOD SUCCI 40 MG/ML 1 ML VIAL IV SCH ×2 (07:33→22:53)
[2021-04-06] MEDS: LINEZOLID 600 MG TAB PO SCH ×2 (07:34→22:52)
[2021-04-06] MEDS: levETIRAcetam ORAL SOLN 500 MG/5 ML CUP PO SCH ×2 (07:34→22:52)
[2021-04-06] MEDS: FORMOTEROL FUMARATE 20 MCG/2 ML NEBU INHALATION SCH ×2 (07:40→21:09)
--- NOTE | 2021-04-06 11:51 | P.PN ---
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 patient follows with Dr. Granados in the pulmonary clinic. Patient currently resides in a local assisted secondary to having a CVA. Patient came into the emergency department brought in by EMS on the 04/02/2021 for evaluation of worsening shortness of breath, cough with purulent phlegm, she was also febrile on presentation with decreased responsiveness and fatigue. Patient was started on antibiotics initially because given a dose of Zithromax in the ER which was later switched to Zosyn. Patient has a area of chronic scarring in the right upper lobe, her chest x-ray in the emergency department showed pleural reaction and scarring and atelectasis in the lung bases, and infiltrate in the right upper lobe with mild volume loss that was increased from prior exam. Patient tested negative for COVID-19, her influenza A and B were also negative. She did have a leukocytosis with white blood cell count of 23, hemoglobin was 11.6, electrolytes are within normal limits, BUN was 18 creatinine 0.59, troponin was negative at less than 0.012, CRP was 13.7, LFTs were within normal limits. She was given some gentle IV hydration in the emergency department, she is getting IV fluids currently infusing at 130 ML per hour, she was started on breathing treatments, was started on antibiotics, she still coughing up some purulent colored phlegm which will be sent for cultures. But overall she appears to be in no acute distress, much more responsive, and more comfortable. On 5 L of oxygen her pulse ox today is 94%, she had low-grade fevers overnight. Progress note dated 04/04/2021. This is a 80-year-old female with a known history of COPD and chronic hypoxemic respiratory failure, and an FEV1 that is 50% of predicted, was admitted with a diagnosis of pneumonia. The patient follows with my partner in the pulmonary clinic. She was seen in consultation yesterday. She is feeling better today. She is a DO NOT RESUSCITATE patient. She states that she feels the 100% better. She is on 3 L nasal cannula, which is what she uses at home, and saline at 50 mL an hour. Her chest x-ray showed right upper lobe infiltrate. The patient has very mild conversational dyspnea. No use of accessory muscles. No audible wheezing. No new laboratory data today. Chest x-ray is reviewed. The patient is seen today 04/05/2021 in follow-up on the regular medical floor. She is currently sitting up in bed. Talking on the phone. No worsening shortness of breath, cough or congestion. Maintaining O2 saturations in the 90s on 4 L/m per nasal cannula. She remains afebrile. Hemodynamically stable. Follow-up chest x-ray reveals underlying emphysema. Patchy infiltrate in the right upper lobe remains. Blood cultures revealed no growth. Sputum culture revealed no growth. She is continued on Symbicort, DuoNeb inhalations, IV Solu- Medrol. Remains on antibiotics in the form of Zosyn and Zyvox. Anticoagulated with Xarelto. The patient is seen today 04/06/2021 in follow-up on the regular medical floor. She is currently resting comfortably in bed. Awake and alert in no acute distress. Maintaining O2 saturations in the 90s on 4 L/m per nasal cannula. She is continued on bronchodilators, IV Solu-Medrol, antibiotics in the form of Zosyn and Zyvox. She is also on Diflucan. Anticoagulated with Xarelto. Blood and sputum cultures revealed no growth. Chest x-ray remains stable with underlying emphysematous changes and patchy infiltrate of the right upper lobe as well as left medial lung. Some chronicity. Objective - Vital Signs Vital signs: Vital Signs Temp 97.8 F 04/06/21 07:53 Pulse 72 04/06/21 11:34 Resp 20 04/06/21 11:34 BP 179/79 04/06/21 07:53 Pulse Ox 98 04/06/21 07:53 Intake & Output 04/05/21 04/06/21 04/06/21 18:59 06:59 18:59 Intake Total 708 236 Output Total 400 300 Balance 308 -300 236 Intake: Oral 708 236 Output: Urine 400 300 Other: Voiding Method External Catheter External Catheter # Bowel Movements 1 0 - Exam GENERAL EXAM: Alert, frail, pleasant 80-year-old female, on 4 L/m per nasal cannula, comfortable in no apparent distress. HEAD: Normocephalic. EYES: Normal reaction of pupils, equal size. NOSE: Clear with pink turbinates. THROAT: No erythema or exudates. NECK: No masses, no JVD. CHEST: No chest wall deformity. LUNGS: Equal air entry with bilateral scattered rhonchi. CVS: S1 and S2 normal with no audible murmur, regular rhythm. ABDOMEN: No hepatosplenomegaly, normal bowel sounds, no guarding or rigidity. SPINE: No scoliosis or deformity SKIN: No rashes CENTRAL NERVOUS SYSTEM: No focal deficits, tone is normal in all 4 extremities. EXTREMITIES: There is no peripheral edema. No clubbing, no cyanosis. Peripheral pulses are intact. - Labs CBC & Chem 7: 04/03/21 12:38 04/03/21 12:38 Labs: Microbiology - Last 24 Hours (Table) 04/02/21 22:00 Blood Culture - Preliminary Blood No Growth after 72 hours 04/02/21 20:59 Blood Culture - Preliminary Blood No Growth after 72 hours 04/03/21 12:48 Gram Stain - Final Sputum Sputum Culture - Final Assessment and Plan Assessment: 1 Acute on chronic hypoxemic respiratory failure secondary to right upper lobe pneumonia some limited left midlung infiltrate. Currently on 4 L nasal cannula. 2 Severe COPD, with an FEV1 that's 50% of predicted. 3 Prior history of methicillin-resistant staph aureus pneumonia. 4 Prior history of coronavirus infection, October 2020. 5 Chronic hypoxemic respiratory failure, currently on home O2 at 3 L to 4 L/m. 6 Chronic scarring, right upper lobe. 7 Prior history of [id number] tobacco use. 8 Compression fractures, thoracic and lumbar spine. 9 Severe anorexia/cachexia syndrome. 10 History of seizure disorder. 11 History of chronic anxiety. 12 Secondary pulmonary hypertension. 13 History of CVA. Plan: The patient was seen and evaluated Currently stable and on 4 L nasal cannula Continue Zosyn and Zyvox Continue bronchodilators, wean IV Solu-Medrol Titrate the FiO2 as tolerated Plan is to transfer back to [facility] upon discharge We will continue to follow I, the cosigning physician, performed a history & physical examination of the p atient. Lungs sounds with bilateral scattered rhonchi. Maintaining good O2 saturations in the 90s on 4 L/m per nasal cannula. I discussed the assessment and plan of care with my nurse practitioner, Darlene Underwood. I attest to the above note as dictated by her.
[2021-04-06] MEDS: CHOLECALCIFEROL 25 MCG (1000 IU) TABLET PO SCH (15:58)
[2021-04-06] MEDS: FERROUS SULFATE 325 MG TAB PO SCH (15:59)
[2021-04-06] MEDS: ASCORBIC ACID 500 MG TAB PO SCH (15:59)
[2021-04-06] MEDS: RIVAROXABAN 20 MG TAB PO SCH (16:00)
--- NOTE | 2021-04-06 16:53 | P.PN ---
Progress Note - Text Progress Note Date: 04/06/21 Chief Complaint: Cough History of presenting complaint: This is a pleasant 80-year-old patient,from [facility]. followed by Dr. Granado. . 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 Has been nonambulatory. Bilateral pulmonary embolism in October 2020 on xarelto, DO NOT RESUSCITATE Patient now presents with increasing shortness of breath. Has had a cough she says for about 2 weeks. Bringing up green sputum. Very congested. Decreased appetite. Patient is weak and tired. Not sure if she's had a fever. Tired. Patient is a full assist. No hemoptysis. Admitted with right upper lobe pneumonia, started on IV Zosyn. Acute hypoxic respiratory failure on 5 LCannula. Pharyngeal candidiasis. Started on Diflucan April 04: Short of breath but a bit better. Less congested cough. Eating a bit better. Propped up in bed. 3 L nasal cannula. Tired. April 05: Short of breath. Tired. Decreased appetite. 4 L nasal cannula. April 06: Reclining in chair. Eating a bit better today. Cough is sputum. Tired. Shortness of breath. Review of systems: Was done for constitutional, cardiovascular, GI, pulmonary. relevant finding as above Active Medications Hydrocodone Bitart/Acetaminophen (Hydrocodone/Apap 5-325mg 1 Each Tab) 1 each PO Q6H [facility] Last Admin: 04/06/21 15:58 Dose: 1 each Documented by: Albuterol Sulfate (Albuterol Hfa Inhaler) 2 puff INHALATION RT-Q6H PRN PRN Reason: Shortness Of Breath Albuterol/Ipratropium (Ipratropium-Albuterol 3 Ml Neb) 3 ml INHALATION RT-QID [facility] Last Admin: 04/06/21 11:34 Dose: 3 ml Documented by: Alprazolam (Alprazolam 0.25 Mg Tab) 0.25 mg PO Q8H PRN PRN Reason: Anxiety/Restlessness Last Admin: 04/06/21 06:00 Dose: 0.25 mg Documented by: Ascorbic Acid (Ascorbic Acid 500 Mg Tab) 500 mg PO DAILY@1700 [facility] Last Admin: 04/06/21 15:59 Dose: 500 mg Documented by: Budesonide (Budesonide 1 Mg/2 Ml Nebu) 1 mg INHALATION RT-BID [facility] Last Admin: 04/06/21 07:28 Dose: 1 mg Documented by: Cholecalciferol (Cholecalciferol 25 Mcg (1000 Iu) Tablet) 100 mcg PO DAILY@1700 [facility] Last Admin: 04/06/21 15:58 Dose: 100 mcg Documented by: Dronabinol (Dronabinol 2.5 Mg Cap) 2.5 mg PO DAILY@0800 [facility] Last Admin: 04/06/21 07:33 Dose: 2.5 mg Documented by: Ferrous Sulfate (Ferrous Sulfate 325 Mg Tab) 325 mg PO DAILY@1700 [facility] Last Admin: 04/06/21 15:59 Dose: 325 mg Documented by: Fluconazole (Fluconazole 100 Mg Tab) 100 mg PO DAILY [facility] Last Admin: 04/06/21 07:33 Dose: 100 mg Documented by: Fluticasone Propionate (Fluticasone 50mcg/[place] Nasal 16gm) 2 spray EA NOSTRIL HS@2100 [facility] Last Admin: 04/05/21 20:01 Dose: 2 spray Documented by: Formoterol Fumarate (Formoterol Fumarate 20 Mcg/2 Ml Nebu) 20 mcg INHALATION RT-BID [facility] Last Admin: 04/06/21 07:40 Dose: 20 mcg Documented by: Guaifenesin (Guaifenesin 600 Mg Tablet.Er) 600 mg PO BID@0800,2100 [facility] Last Admin: 04/06/21 07:33 Dose: 600 mg Documented by: Sodium Chloride (Saline 0.9%) 1,000 mls @ 130 mls/hr IV .Q7H42M [facility] Last Admin: 04/06/21 15:27 Dose: Not Given Documented by: Piperacillin Sod/Tazobactam (Sod 3.375 gm/ Sodium Chloride) 100 mls @ 25 mls/hr IVPB Q8H [facility] Last Admin: 04/06/21 15:59 Dose: 25 mls/hr Documented by: Levetiracetam (Levetiracetam Oral Soln 500 Mg/5 Ml Cup) 500 mg PO BID@0800,2100 [facility] Last Admin: 04/06/21 07:34 Dose: 500 mg Documented by: Lidocaine (Lidocaine 5% Patch) 1 patch TOPICAL DAILY@0800 [facility]; Protocol Last Admin: 04/06/21 07:33 Dose: 1 patch Documented by: Linezolid (Linezolid 600 Mg Tab) 600 mg PO Q12HR [facility] Last Admin: 04/06/21 07:34 Dose: 600 mg Documented by: Losartan Potassium (Losartan 25 Mg Tab) 25 mg PO DAILY@0800 [facility] Last Admin: 04/06/21 07:33 Dose: 25 mg Documented by: Melatonin (Melatonin 3 Mg Tablet) 3 mg PO HS PRN PRN Reason: Insomnia Methylprednisolone Sodium Succinate (Methylprednisolone Sod Succi 40 Mg/Ml 1 Ml Vial) 40 mg IV Q12HR [facility] Miscellaneous Information (Pneumonia Protocol Utilized 1 Each Misc) 1 each PO ONCE PRN PRN Reason: Per Protocol Pantoprazole Sodium (Pantoprazole 40 Mg Tablet) 40 mg PO AC-BRKFST [facility] Last Admin: 04/06/21 07:33 Dose: 40 mg Documented by: Rivaroxaban (Rivaroxaban 20 Mg Tab) 20 mg PO DAILY@1700 [facility]; Protocol Last Admin: 04/06/21 16:00 Dose: 20 mg Documented by: Sodium Chloride (Sodium Chloride 0.65% Nasal [place] 44 Ml Btl) 1 spray INTRANASAL Q2H PRN PRN Reason: Congestion Past medical history to include: COPD, stroke with left-sided weakness, home oxygen 3 L, bilateral pulmonary embolism, protein calorie malnutrition. COVID-19 Social history: smoking from the age of 16 up to 2019. One pack a day. No alcohol. at [facility]. Family history: Mother from a ruptured brain aneurysm. Coronary artery disease Physical examination: VITAL SIGNS: 97.6, 67, 16, 1:30 was 74, 100% on 4 L GENERAL: loss of subcutaneous fat and muscle mass, prominent bones. reclining in chair. Short of breath. Tired EYES: Pupils equal. Conjunctiva normal. HEENT: External appearance of nose and ears normal, oral cavity grossly normal. White patches in the pharynx NECK: JVD not raised; masses not palpable. HEART: First and second heart sounds are normal; no edema. LUNGS: Respiratory rate increase; decrease breath sounds, prolonged expiration. ABDOMEN: Soft, nontender, liver spleen not palpable, no masses palpable. PSYCH: Alert and oriented x3; mood and affect anxious. MUSCULOSKELETAL:No Clubbing/cyanosis;muscles-grossly intact INVESTIGATIONS, reviewed in the clinical context: April 04: White count 25.6 hemoglobin 10.6 potassium 3.9 creatinine 0.51 April 03: White count 25.6 hemoglobin 10.6 platelets 3603.9 BUN 15 creatinine 0.5 bun albumin 2.7 Coronavirus [/influenza type A/influenza type B: Not detected EKG tracing personally reviewed by me-normal sinus rhythm, rate 108, some ST segment depression in inferolateral leads Chest x-ray film personally reviewed by me-right upper lobe infiltrate. Advanced emphysema. Some chronic fibrotic findings Assessment and plan: -Right upper lobe pneumonia, suspect gram-negative organism: Slow to respond IV Zosyn. Sputum for Gram stain and culture: Unremarkable. Mucinex. -Acute hypoxic respiratory failure from pneumonia/COPD exacerbation: Slow to respond 4 L nasal cannula -Pharyngeal candidiasis Diflucan -Normocytic anemia of chronic disease. Follow H&H -Chronic advanced prednisone dependent COPD in a previous smoker: DuoNeb 4 times a day, stop Symbicort ., IV Solu-Medrol. Add Perforomist and Pulmicort -Chronic bilateral pulmonary embolism Continue Xarelto -chronic hypoxic respiratory failure from COPD exacerbation: 3 L nasal cannula -Severe protein calorie malnutrition from decreased oral intake Nutritional supplement. Consult dietitian -Left hemiparesis from prior stroke Patient non-ambulatory -Chronic medical debility She is a full assist non- ambulatory -Essential hypertension Cozaar 25 mg daily -GERD Protonix 40 mg daily -muscular skeletal pain. Primary osteoarthritis [place] 5/500 one tablet every 6 when necessary -DO NOT RESUSCITATE IV Zosyn. IV Solu-Medrol. Diflucan. nebulized Perforomist and Pulmicort. Discussed with patient. Prognosis guarded
[2021-04-06] MEDS: FLUTICASONE 50MCG/SPRAY NASAL 16GM EA NOSTRIL SCH (22:52)
[2021-04-07] MEDS: PIPERACILLIN-TAZOBACTAM 3.375 GM in SODIUM CHLORIDE 0.9% 100 ML IVPB SCH ×3 (05:29→21:24)
[2021-04-07] MEDS: SODIUM CHLORIDE 0.9% 1,000 ML IV SCH ×3 (05:30→21:23)
[2021-04-07] MEDS: HYDROcodone/APAP 5-325MG 1 EACH TAB PO SCH ×4 (05:30→22:50)
[2021-04-07 05:42] LABS: Basophils % (A) 0 %; Eosinophils % (A) 0 %; HGB 10.7 gm/dL (11.4-16.0); Hypochromasia Marked; Lymphocytes # (A) 0.5 k/uL (1.0-4.8); Lymphocytes % (A) 4 %; MCH 27.5 pg (25.0-35.0); MCHC 30.5 g/dL (31.0-37.0); MCV 90.3 fL (80.0-100.0); Mean Platelet Volume 8.1; Monocytes # (A) 0.3 k/uL (0-1.0); Monocytes % (A) 2 %; Neutrophils # (A) 13.1 k/uL (1.3-7.7); Neutrophils % (A) 93 %; Platelet Count 429 k/uL (150-450); RBC 3.88 m/uL (3.80-5.40); RDW 14.9 % (11.5-15.5); WBC 14.1 k/uL (3.8-10.6)
[2021-04-07 05:52] LABS: African American GFR (CKD) >90 (>60 ml/min/1.73 sqM); Anion Gap 6 mmol/L; Blood Urea Nitrogen 28 mg/dL (7-17); Calcium 10.1 mg/dL (8.4-10.2); Carbon Dioxide 29 mmol/L (22-30); Chloride 105 mmol/L (98-107); Glucose 130 mg/dL (74-99); Non-African American GFR(CKD) 87 (>60 ml/min/1.73 sqM); Potassium 4.7 mmol/L (3.5-5.1); Sodium 140 mmol/L (137-145)
[2021-04-07] MEDS: LIDOCAINE 5% PATCH TOPICAL SCH (08:43)
[2021-04-07] MEDS: methylPREDNISolone SOD SUCCI 40 MG/ML 1 ML VIAL IV SCH ×2 (08:43→21:23)
[2021-04-07] MEDS: FLUCONAZOLE 100 MG TAB PO SCH (08:47)
[2021-04-07] MEDS: LINEZOLID 600 MG TAB PO SCH ×2 (08:47→21:23)
[2021-04-07] MEDS: PANTOPRAZOLE 40 MG TABLET PO SCH (08:48)
[2021-04-07] MEDS: guaiFENesin 600 MG TABLET.ER PO SCH ×2 (08:48→21:23)
[2021-04-07] MEDS: levETIRAcetam ORAL SOLN 500 MG/5 ML CUP PO SCH ×2 (08:48→21:23)
[2021-04-07] MEDS: LOSARTAN 25 MG TAB PO SCH (08:48)
[2021-04-07] MEDS: IPRATROPIUM-ALBUTEROL 3 ML NEB INHALATION SCH ×4 (09:15→21:54)
[2021-04-07] MEDS: FORMOTEROL FUMARATE 20 MCG/2 ML NEBU INHALATION SCH ×2 (09:15→21:54)
[2021-04-07] MEDS: BUDESONIDE 1 MG/2 ML NEBU INHALATION SCH ×2 (09:15→21:54)
--- NOTE | 2021-04-07 14:09 | P.PN ---
Subjective Progress Note Date: 04/07/21 Principal diagnosis: Pneumonia. 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 patient follows with Dr. Granados in the pulmonary clinic. Patient marilyn dorantes resides in a local senior living secondary to having a CVA. Patient came into the emergency department brought in by EMS on the 04/02/2021 for evaluation of worsening shortness of breath, cough with purulent phlegm, she was also febrile on presentation with decreased responsiveness and fatigue. Patient was started on antibiotics initially because given a dose of Zithromax in the ER which was later switched to Zosyn. Patient has a area of chronic scarring in the right upper lobe, her chest x-ray in the emergency department showed pleural reaction and scarring and atelectasis in the lung bases, and infiltrate in the right upper lobe with mild volume loss that was increased from prior exam. Patient tested negative for COVID-19, her influenza A and B were also negative. She did have a leukocytosis with white blood cell count of 23, hemoglobin was 11.6, electrolytes are within normal limits, BUN was 18 creatinine 0.59, troponin was negative at less than 0.012, CRP was 13.7, LFTs were within normal limits. She was given some gentle IV hydration in the emergency department, she is getting IV fluids currently infusing at 130 ML per hour, she was started on breathing treatments, was started on antibiotics, she still coughing up some purulent colored phlegm which will be sent for cultures. But overall she appears to be in no acute distress, much more responsive, and more comfortable. On 5 L of oxygen her pulse ox today is 94%, she had low-grade fevers overnight. Progress note dated 04/04/2021. This is a 80-year-old female with a known history of COPD and chronic hypoxemic respiratory failure, and an FEV1 that is 50% of predicted, was admitted with a diagnosis of pneumonia. The patient follows with my partner in the pulmonary clinic. She was seen in consultation yesterday. She is feeling better today. She is a DO NOT RESUSCITATE patient. She states that she feels the 100% better. She is on 3 L nasal cannula, which is what she uses at home, and saline at 50 m L an hour. Her chest x-ray showed right upper lobe infiltrate. The patient has very mild conversational dyspnea. No use of accessory muscles. No audible wheezing. No new laboratory data today. Chest x-ray is reviewed. Progress note dated 04/07/2021. This is a 80-year-old female again seen in room 462. She has a known history of COPD and chronic hypoxemic respiratory failure. FEV1 is 50% predicted. She was admitted with a diagnosis of pneumonia. She follows with one of my partners in the pulmonary clinic. Currently she is on 4 L nasal cannula, and saline at 20 mL an hour. Current laboratory data includes a white count 14.1, hemoglobin 10.7, hematocrit 35, and platelet count 429,000. Sodium, potassium, chloride, CO2, and anion gap are all normal. The patient's BUN was 28 with a creatinine of 0.6. Microbiologic studies were negative. The chest x-ray from April 05 is reviewed. The patient is on Zosyn, and Zyvox, as per infectious diseases. Objective - Vital Signs Vital signs: Vital Signs Temp 97.6 F 04/07/21 01:04 Pulse 96 04/07/21 13:32 Resp 16 04/07/21 01:04 BP 135/67 04/07/21 01:04 Pulse Ox 94 L 04/07/21 09:16 Intake & Output 04/06/21 04/07/21 04/07/21 18:59 06:59 18:59 Intake Total 768 Output Total 300 250 Balance 468 -250 Weight 49 kg Intake: Oral 768 Output: Urine 300 250 Other: Voiding Method External Catheter External Catheter # Bowel Movements 1 - Exam No acute distress, oriented 3. Currently on 3 L nasal cannula. Mild conversational dyspnea. No use of accessory muscles. HEENT examination is grossly unremarkable. Neck supple. Full range of motion. No adenopathy thyromegaly or neck vein distention. Cardiovascular examination reveals regular rhythm rate. S1-S2 normal. No S3 or S4. No discernible murmur noted. Heart sounds are distant. Heart rate 96 bpm. Lungs reveal scattered bilateral rhonchi. No wheezes or crackles. Breath sounds equal bilaterally. There is prolongation on forced maneuver. Mild expiratory wheezes on forced maneuver. Abdomen soft bowel sounds are heard. No masses or tenderness. Extremities are intact. No cyanosis clubbing or edema. Skin is without rash or lesion. Neurologic examination is brief but nonfocal. - Labs CBC & Chem 7: 04/07/21 05:19 04/07/21 05:19 Labs: Abnormal Lab Results - Last 24 Hours (Table) 04/07/21 04/07/21 Range/Units 05:19 05:19 WBC 14.1 H (3.8-10.6) k/uL Hgb 10.7 L (11.4-16.0) gm/dL MCHC 30.5 L (31.0-37.0) g/dL Neutrophils # 13.1 H (1.3-7.7) k/uL Lymphocytes # 0.5 L (1.0-4.8) k/uL BUN 28 H (7-17) mg/dL Glucose 130 H (74-99) mg/dL Microbiology - Last 24 Hours (Table) 04/02/21 22:00 Blood Culture - Preliminary Blood No Growth after 96 hours 04/02/21 20:59 Blood Culture - Preliminary Blood No Growth after 96 hours Assessment and Plan Assessment: Acute on chronic hypoxemic respiratory failure secondary to right upper lobe pn eumonia. Severe COPD, with an FEV1 that's 50% of predicted. Prior history of methicillin-resistant staph aureus pneumonia. Prior history of coronavirus infection, October 2020. Chronic hypoxemic respiratory failure, currently on home O2 at 3 L to 4 L/m. Chronic scarring, right upper lobe. Prior history of [id number] tobacco use. Compression fractures, thoracic and lumbar spine. Severe anorexia/cachexia syndrome. History of seizure disorder. History of chronic anxiety. Secondary pulmonary hypertension. History of CVA. Plan: Plan dated 04/04/2021. The patient was seen by infectious diseases, and prescribed Zosyn. The patient is also on updrafts, and Symbicort. Additional recommendations and suggestions are forthcoming. Prognosis is guarded. The patient was also placed on Zyvox. Current microbiology is negative. The patient is a DO NOT RESUSCITATE patient. Overall prognosis remains poor. We will continue to follow make recommendations where appropriate. Plan dated 04/07/2021. The patient is currently on Zosyn and Zyvox. The patient's on appropriate bronchodilator treatment. The patient is a DO NOT RESUSCITATE patient. We will go ahead and order a pro-calcitonin level. The patient is being followed by infectious disease physician. Additional recommendations and suggestions are forthcoming. Prognosis is guarded. Time with Patient: Less than 30
[2021-04-07] MEDS: CHOLECALCIFEROL 25 MCG (1000 IU) TABLET PO SCH (17:34)
[2021-04-07] MEDS: RIVAROXABAN 20 MG TAB PO SCH (17:35)
[2021-04-07] MEDS: FERROUS SULFATE 325 MG TAB PO SCH (17:35)
[2021-04-07] MEDS: ASCORBIC ACID 500 MG TAB PO SCH (17:35)
--- NOTE | 2021-04-07 19:49 | P.PN ---
Progress Note - Text Progress Note Date: 04/07/21 Chief Complaint: Cough History of presenting complaint: This is a pleasant 80-year-old patient,from [facility]. followed by Dr. Granado. . 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 Has been nonambulatory. Bilateral pulmonary embolism in October 2020 on xarelto, DO NOT RESUSCITATE Patient now presents with increasing shortness of breath. Has had a cough she says for about 2 weeks. Bringing up green sputum. Very congested. Decreased appetite. Patient is weak and tired. Not sure if she's had a fever. Tired. Patient is a full assist. No hemoptysis. Admitted with right upper lobe pneumonia, started on IV Zosyn. Acute hypoxic respiratory failure on 5 LCannula. Pharyngeal candidiasis. Started on Diflucan April 04: Short of breath but a bit better. Less congested cough. Eating a bit better. Propped up in bed. 3 L nasal cannula. Tired. April 05: Short of breath. Tired. Decreased appetite. 4 L nasal cannula. April 06: Reclining in chair. Eating a bit better today. Cough is sputum. Tired. Shortness of breath. March 2016: In bed. Eating fair. Congested cough is sputum. Short of breath. Review of systems: Was done for constitutional, cardiovascular, GI, pulmonary. relevant finding as above Active Medications Hydrocodone Bitart/Acetaminophen (Hydrocodone/Apap 5-325mg 1 Each Tab) 1 each PO Q6H [facility] Last Admin: 04/07/21 17:35 Dose: 1 each Documented by: Albuterol Sulfate (Albuterol Hfa Inhaler) 2 puff INHALATION RT-Q6H PRN PRN Reason: Shortness Of Breath Albuterol/Ipratropium (Ipratropium-Albuterol 3 Ml Neb) 3 ml INHALATION RT-QID [facility] Last Admin: 04/07/21 16:10 Dose: 3 ml Documented by: Alprazolam (Alprazolam 0.25 Mg Tab) 0.25 mg PO Q8H PRN PRN Reason: Anxiety/Restlessness Last Admin: 04/06/21 06:00 Dose: 0.25 mg Documented by: Ascorbic Acid (Ascorbic Acid 500 Mg Tab) 500 mg PO DAILY@1700 [facility] Last Admin: 04/07/21 17:35 Dose: 500 mg Documented by: Budesonide (Budesonide 1 Mg/2 Ml Nebu) 1 mg INHALATION RT-BID [facility] Last Admin: 04/07/21 09:15 Dose: 1 mg Documented by: Cholecalciferol (Cholecalciferol 25 Mcg (1000 Iu) Tablet) 100 mcg PO DAILY@1700 [facility] Last Admin: 04/07/21 17:34 Dose: 100 mcg Documented by: Dronabinol (Dronabinol 2.5 Mg Cap) 2.5 mg PO DAILY@0800 [facility] Last Admin: 04/07/21 08:47 Dose: 2.5 mg Documented by: Ferrous Sulfate (Ferrous Sulfate 325 Mg Tab) 325 mg PO DAILY@1700 [facility] Last Admin: 04/07/21 17:35 Dose: 325 mg Documented by: Fluconazole (Fluconazole 100 Mg Tab) 100 mg PO DAILY [facility] Last Admin: 04/07/21 08:47 Dose: 100 mg Documented by: Fluticasone Propionate (Fluticasone 50mcg/[place] Nasal 16gm) 2 spray EA NOSTRIL HS@2100 [facility] Last Admin: 04/06/21 22:52 Dose: 2 spray Documented by: Formoterol Fumarate (Formoterol Fumarate 20 Mcg/2 Ml Nebu) 20 mcg INHALATION RT-BID [facility] Last Admin: 04/07/21 09:15 Dose: 20 mcg Documented by: Guaifenesin (Guaifenesin 600 Mg Tablet.Er) 600 mg PO BID@0800,2100 [facility] Last Admin: 04/07/21 08:48 Dose: 600 mg Documented by: Sodium Chloride (Saline 0.9%) 1,000 mls @ 130 mls/hr IV .Q7H42M [facility] Last Admin: 04/07/21 14:20 Dose: Not Given Documented by: Piperacillin Sod/Tazobactam (Sod 3.375 gm/ Sodium Chloride) 100 mls @ 25 mls/hr IVPB Q8H [facility] Last Admin: 04/07/21 14:19 Dose: 25 mls/hr Documented by: Levetiracetam (Levetiracetam Oral Soln 500 Mg/5 Ml Cup) 500 mg PO BID@0800,2100 [facility] Last Admin: 04/07/21 08:48 Dose: 500 mg Documented by: Lidocaine (Lidocaine 5% Patch) 1 patch TOPICAL DAILY@0800 [facility]; Protocol Last Admin: 04/07/21 08:43 Dose: 1 patch Documented by: Linezolid (Linezolid 600 Mg Tab) 600 mg PO Q12HR [facility] Last Admin: 04/07/21 08:47 Dose: 600 mg Documented by: Loratadine/Pseudoephedrine Sulfate (Loratadine-Pseudoeph 5-120 Mg 1 Each Tab.Er.12h) 1 each PO Q12HR [facility] Losartan Potassium (Losartan 25 Mg Tab) 25 mg PO DAILY@0800 [facility] Last Admin: 04/07/21 08:48 Dose: 25 mg Documented by: Melatonin (Melatonin 3 Mg Tablet) 3 mg PO HS PRN PRN Reason: Insomnia Methylprednisolone Sodium Succinate (Methylprednisolone Sod Succi 40 Mg/Ml 1 Ml Vial) 40 mg IV Q12HR [facility] Last Admin: 04/07/21 08:43 Dose: 40 mg Documented by: Miscellaneous Information (Pneumonia Protocol Utilized 1 Each Misc) 1 each PO ONCE PRN PRN Reason: Per Protocol Pantoprazole Sodium (Pantoprazole 40 Mg Tablet) 40 mg PO AC-BRKFST [facility] Last Admin: 04/07/21 08:48 Dose: 40 mg Documented by: Rivaroxaban (Rivaroxaban 20 Mg Tab) 20 mg PO DAILY@1700 [facility]; Protocol Last Admin: 04/07/21 17:35 Dose: 20 mg Documented by: Sodium Chloride (Sodium Chloride 0.65% Nasal [place] 44 Ml Btl) 1 spray INTRANASAL Q2H PRN PRN Reason: Congestion Past medical history to include: COPD, stroke with left-sided weakness, home oxygen 3 L, bilateral pulmonary embolism, protein calorie malnutrition. COVID-19 Social history: smoking from the age of 16 up to 2019. One pack a day. No alcohol. at [facility]. Family history: Mother from a ruptured brain aneurysm. Coronary artery disease Physical examination: VITAL SIGNS: 98.1, 78, 16, 1 10 x 65, 96% on 3 L GENERAL: [ loss of subcutaneous fat and muscle mass, prominent bones. ] reclining in chair. Short of breath. Tired EYES: Pupils equal. Conjunctiva normal. HEENT: External appearance of nose and ears normal, oral cavity grossly normal. White patches in the pharynx NECK: JVD not raised; masses not palpable. HEART: First and second heart sounds are normal; no edema. LUNGS: Respiratory rate increase; decrease breath sounds, prolonged expiration. ABDOMEN: Soft, nontender, liver spleen not palpable, no masses palpable. PSYCH: Alert and oriented x3; mood and affect anxious. MUSCULOSKELETAL:No Clubbing/cyanosis;muscles-grossly intact INVESTIGATIONS, reviewed in the clinical context: April 07: White count 14.1 hemoglobin 10.7 potassium 4.7 creatinine 0.6 April 04: White count 25.6 hemoglobin 10.6 potassium 3.9 creatinine 0.51 April 03: White count 25.6 hemoglobin 10.6 platelets 3603.9 BUN 15 creatinine 0.5 bun albumin 2.7 Coronavirus [/influenza type A/influenza type B: Not detected EKG tracing personally reviewed by me-normal sinus rhythm, rate 108, some ST segment depression in inferolateral leads Chest x-ray film personally reviewed by me-right upper lobe infiltrate. Advanced emphysema. Some chronic fibrotic findings Assessment and plan: -Right upper lobe pneumonia, suspect gram-negative organism: Slow to respond IV Zosyn. Zyvox Sputum for Gram stain and culture: Unremarkable. Mucinex. -Acute hypoxic respiratory failure from pneumonia/COPD exacerbation: 3 L nasal cannula -Pharyngeal candidiasis Diflucan -Normocytic anemia of chronic disease. Follow H&H -Chronic advanced prednisone dependent COPD in a previous smoker: Slow to respond DuoNeb 4 times a day, stop Symbicort ., IV Solu-Medrol. Perforomist and Pulmicort -Chronic bilateral pulmonary embolism Xarelto -chronic hypoxic respiratory failure from COPD exacerbation: 3 L nasal cannula -Severe protein calorie malnutrition from decreased oral intake Nutritional supplement. Consult dietitian -Left hemiparesis from prior stroke Patient non-ambulatory -Chronic medical debility She is a full assist non- ambulatory -Essential hypertension Cozaar 25 mg daily -GERD Protonix 40 mg daily -muscular skeletal pain. Primary osteoarthritis [place] 5/500 one tablet every 6 when necessary -DO NOT RESUSCITATE IV Zosyn. IV Solu-Medrol. Diflucan. nebulized Perforomist and Pulmicort. Continue current treatment plan. Discussed with patient. We will check nasal swab for MRSA
[2021-04-07] MEDS: LORATADINE-PSEUDOEPH 5-120 MG 1 EACH TAB.ER.12H PO SCH (21:23)
--- NOTE | 2021-04-07 22:24 | P.PN ---
Subjective Progress Note Date: 04/06/21 Principal diagnosis: Pneumonia Patient is a 80-year-old female, presented to the hospital with increasing shortness of breath and cough and this patient has been diagnosed with a pneumonia consult for possible gram-negative. On today's evaluation that is 04/06/2021, the patient is afebrile, the patient is breathing comfortably this morning, patient denies having any chest pain no worsening cough or sputum production no abdominal pain or diarrhea has been reported by the nursing staff Objective - Vital Signs Vital signs: Vital Signs Temp 97.8 F 04/06/21 07:53 Pulse 77 04/06/21 11:47 Resp 20 04/06/21 11:47 BP 179/79 04/06/21 07:53 Pulse Ox 98 04/06/21 07:53 Intake & Output 04/05/21 04/06/21 04/06/21 18:59 06:59 18:59 Intake Total 708 236 Output Total 400 300 Balance 308 -300 236 Intake: Oral 708 236 Output: Urine 400 300 Other: Voiding Method External Catheter External Catheter # Bowel Movements 1 0 - Exam GENERAL DESCRIPTION:[ Patient is awake and alert in no distress] HEENT: [Oral mucosa is dry and no pharyngeal erythema] RESPIRATORY SYSTEM: [Unlabored breathing Decreased breath sounds at the Base] CARDIA VASCULAR SYSTEM: [S1-S2 regular rate and rhythm no murmur] GI: [Abdominal soft there's no tenderness no organomegaly] EXTREMITIES: [No edema feet] - Labs CBC & Chem 7: 04/07/21 05:19 04/07/21 05:19 Labs: Microbiology - Last 24 Hours (Table) 04/02/21 22:00 Blood Culture - Preliminary Blood No Growth after 72 hours 04/02/21 20:59 Blood Culture - Preliminary Blood No Growth after 72 hours 04/03/21 12:48 Gram Stain - Final Sputum Sputum Culture - Final Assessment and Plan (1) Right upper lobe pneumonia Current Visit: Yes Status: Acute Code(s): J18.9 - PNEUMONIA, UNSPECIFIED ORGANISM SNOMED Code(s): 739540563 Plan: 1patient presented to hospital with sepsis in this patient did have a fever and elevated white count is concerning for pneumonia question of aspiration/gram- negative patient sputum has been usual respiratory delvis and blood culture had been negative, patient to continue Zosyn and will transition to oral antibiotics on discharge 2-leukocytosis more likely steroid effect as no evidence of any worsening infection Time with Patient: Less than 30
--- NOTE | 2021-04-07 22:25 | P.PN ---
Subjective Progress Note Date: 04/07/21 Principal diagnosis: Pneumonia Patient is a 80-year-old female, presented to the hospital with increasing shortness of breath and cough and this patient has been diagnosed with a pneumonia consult for possible gram-negative. On today's evaluation that is 04/07/2021, the patient continues to be afebrile, the patient is breathing comfortably, patient denies having any chest pain, the patient cough is decreased intensity and is not bringing up any sputum production no abdominal pain or diarrhea has been reported by the nursing staff Objective - Vital Signs Vital signs: Vital Signs Temp 97.6 F 04/07/21 01:04 Pulse 96 04/07/21 13:32 Resp 16 04/07/21 01:04 BP 135/67 04/07/21 01:04 Pulse Ox 94 L 04/07/21 09:16 Intake & Output 04/06/21 04/07/21 04/07/21 18:59 06:59 18:59 Intake Total 768 296 Output Total 300 250 Balance 468 -250 296 Weight 49 kg Intake: Oral 768 296 Output: Urine 300 250 Other: Voiding Method External Catheter External Catheter # Bowel Movements 1 - Exam GENERAL DESCRIPTION:[ Patient is awake and alert in no distress] HEENT: [Oral mucosa is dry and no pharyngeal erythema] RESPIRATORY SYSTEM: [Unlabored breathing Decreased breath sounds at the Base] CARDIA VASCULAR SYSTEM: [S1-S2 regular rate and rhythm no murmur] GI: [Abdominal soft there's no tenderness no organomegaly] EXTREMITIES: [No edema feet] - Labs CBC & Chem 7: 04/07/21 05:19 04/07/21 05:19 Labs: Abnormal Lab Results - Last 24 Hours (Table) 04/07/21 04/07/21 Range/Units 05:19 05:19 WBC 14.1 H (3.8-10.6) k/uL Hgb 10.7 L (11.4-16.0) gm/dL MCHC 30.5 L (31.0-37.0) g/dL Neutrophils # 13.1 H (1.3-7.7) k/uL Lymphocytes # 0.5 L (1.0-4.8) k/uL BUN 28 H (7-17) mg/dL Glucose 130 H (74-99) mg/dL Microbiology - Last 24 Hours (Table) 04/02/21 22:00 Blood Culture - Preliminary Blood No Growth after 96 hours 04/02/21 20:59 Blood Culture - Preliminary Blood No Growth after 96 hours Assessment and Plan (1) Right upper lobe pneumonia Current Visit: Yes Status: Acute Code(s): J18.9 - PNEUMONIA, UNSPECIFIED ORGANISM SNOMED Code(s): 135421022 Plan: 1patient presented to hospital with sepsis in this patient did have a fever and elevated white count is concerning for pneumonia question of aspiration/gram- negative patient sputum has been usual respiratory delvis and blood culture had been negative, patient to continue Zosyn while inpatient and will transition to oral antibiotics on discharge 2-leukocytosis more likely steroid effect as no evidence of any worsening infe ction in the white count is showing a downward trend down to 14,000 today Time with Patient: Less than 30
[2021-04-08] MEDS: FLUTICASONE 50MCG/SPRAY NASAL 16GM EA NOSTRIL SCH ×2 (00:44→22:41)
[2021-04-08] MEDS: SODIUM CHLORIDE 0.9% 1,000 ML IV SCH ×2 (00:44→16:51)
[2021-04-08] MEDS: ALPRAZolam 0.25 MG TAB PO PRN (03:09)
[2021-04-08] MEDS: HYDROcodone/APAP 5-325MG 1 EACH TAB PO SCH ×4 (05:29→22:39)
[2021-04-08] MEDS: PIPERACILLIN-TAZOBACTAM 3.375 GM in SODIUM CHLORIDE 0.9% 100 ML IVPB SCH ×3 (05:30→22:40)
[2021-04-08] MEDS: PANTOPRAZOLE 40 MG TABLET PO SCH (07:21)
[2021-04-08] MEDS: IPRATROPIUM-ALBUTEROL 3 ML NEB INHALATION SCH ×4 (08:39→20:14)
[2021-04-08] MEDS: BUDESONIDE 1 MG/2 ML NEBU INHALATION SCH ×2 (08:39→20:14)
[2021-04-08] MEDS: FORMOTEROL FUMARATE 20 MCG/2 ML NEBU INHALATION SCH ×2 (08:39→20:14)
[2021-04-08] MEDS: levETIRAcetam ORAL SOLN 500 MG/5 ML CUP PO SCH ×2 (08:57→22:40)
[2021-04-08] MEDS: LOSARTAN 25 MG TAB PO SCH (08:57)
[2021-04-08] MEDS: LINEZOLID 600 MG TAB PO SCH (08:57)
[2021-04-08] MEDS: LORATADINE-PSEUDOEPH 5-120 MG 1 EACH TAB.ER.12H PO SCH ×2 (08:57→22:39)
[2021-04-08] MEDS: FLUCONAZOLE 100 MG TAB PO SCH (08:57)
[2021-04-08] MEDS: guaiFENesin 600 MG TABLET.ER PO SCH ×2 (08:57→22:39)
[2021-04-08] MEDS: methylPREDNISolone SOD SUCCI 40 MG/ML 1 ML VIAL IV SCH (08:58)
[2021-04-08] MEDS: LIDOCAINE 5% PATCH TOPICAL SCH (08:58)
--- NOTE | 2021-04-08 09:08 | XR ---
EXAMINATION TYPE: XR chest 1V portable DATE OF EXAM: 04/08/2021 Comparison: 04/05/2021 Clinical History: 80-year-old female Follow-up pneumonia Findings: The patient obliqued toward the left rotator towards the right. Heart normal size. Hyperinflation and interstitial density persists. Patchy left basilar opacity is unchanged. There may be slight improvi ng aeration of the right base. Patchy irregular opacities throughout the right upper lobe are unchang ed. Impression: Limited portable and rotated exam. Continued patchy left basilar infiltrate. Continued irregular and patchy opacities throughout the right upper lobe. Improvement in aeration of the right base.
--- NOTE | 2021-04-08 12:15 | P.PN ---
Subjective This is a pleasant 80-year-old patient,from [facility]. followed by Dr. Granado. . 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 Has been n onambulatory. Bilateral pulmonary embolism in October 2020 on xarelto, DO NOT RESUSCITATE Patient now presents with increasing shortness of breath. Has had a cough she says for about 2 weeks. Bringing up green sputum. Very congested. Decreased appetite. Patient is weak and tired. Not sure if she's had a fever. Tired. Patient is a full assist. No hemoptysis. Admitted with right upper lobe pneumonia, started on IV Zosyn. Acute hypoxic respiratory failure on LCannula. Pharyngeal candidiasis. Started on Diflucan April 04: Short of breath but a bit better. Less congested cough. Eating a bit better. Propped up in bed. 3 L nasal cannula. Tired. April 05: Short of breath. Tired. Decreased appetite. 4 L nasal cannula. April 06: Reclining in chair. Eating a bit better today. Cough is sputum. Tired. Shortness of breath. March 2016: In bed. Eating fair. Congested cough is sputum. Short of breath. 04/08/2011 This is a pleasant 80 years old female with multiple medical problems including severe COPD presents with acute exacerbation of her COPD on the top of that she has bilateral pneumonia of the right upper lobe and the left lower lobe and she's been covered with multiple antibiotics including Diflucan, Zyvox orally and Zosyn. Her pro-calcitonin checked on admission was normal at 0.09 and yesterday 0.06. Leukocytosis is trending down to 14.1 Patient still have some shortness of breath and expiratory wheezing on examination. Norvasc was added today for better blood pressure controlled She continue also on Solu-Medrol 40 mg twice daily, home dose of Xarelto for her history of bilateral pulmonary embolism normal saline at 50 mL per hour Objective - Vital Signs Vital signs: Vital Signs Temp 97.9 F 04/08/21 08:00 Pulse 92 04/08/21 09:01 Resp 18 04/08/21 08:55 BP 120/67 04/08/21 08:55 Pulse Ox 99 04/08/21 08:00 Intake & Output 04/07/21 04/08/21 04/08/21 18:59 06:59 18:59 Intake Total 296 296 Output Total 450 Balance 296 -450 296 Intake: Oral 296 296 Output: Urine 450 Other: Voiding Method External Catheter # Bowel Movements 1 - Exam -GENERAL: The patient is alert and oriented x3, not in any acute distress. Cachectic HEENT: Pupils are round and equally reacting to light. EOMI. No scleral icterus. No conjunctival pallor. Normocephalic, atraumatic. No pharyngeal erythema. No thyromegaly. CARDIOVASCULAR: S1 and S2 present. No murmurs, rubs, or gallops. -PULMONARY: Chest is clear to auscultation. Expiratory wheezing ABDOMEN: Soft, nontender, nondistended, normoactive bowel sounds. No palpable organomegaly. MUSCULOSKELETAL: No joint swelling or deformity. EXTREMITIES: No cyanosis, clubbing, or pedal edema. NEUROLOGICAL: Gross neurological examination did not reveal any focal deficits. SKIN: No rashes. no petechiae. - Labs CBC & Chem 7: 04/07/21 05:19 04/07/21 05:19 Labs: Microbiology - Last 24 Hours (Table) 04/02/21 22:00 Blood Culture - Preliminary Blood No Growth after 120 hours 04/02/21 20:59 Blood Culture - Preliminary Blood No Growth after 120 hours Assessment and Plan Assessment: -Right upper lobe pneumonia, suspect gram-negative organism: Slow to respond IV Zosyn. Zyvox Sputum for Gram stain and culture: Unremarkable. Mucinex. -Acute hypoxic respiratory failure from pneumonia/COPD exacerbation: 3 L nasal cannula -Pharyngeal candidiasis Diflucan -Normocytic anemia of chronic disease. Follow H&H -Chronic advanced prednisone dependent COPD in a previous smoker: Slow to respond DuoNeb 4 times a day, stop Symbicort ., IV Solu-Medrol. Perforomist and Pulmicort -Chronic bilateral pulmonary embolism Xarelto -chronic hypoxic respiratory failure from COPD exacerbation: 3 L nasal cannula -Severe protein calorie malnutrition from decreased oral intake Nutritional supplement. Consult dietitian -Left hemiparesis from prior stroke Patient non-ambulatory -Chronic medical debility She is a full assist non- ambulatory -Essential hypertension Cozaar 25 mg daily -GERD Protonix 40 mg daily -muscular skeletal pain. Primary osteoarthritis Crestone 5/500 one tablet every 6 when necessary -DO NOT RESUSCITATE
[2021-04-08] MEDS: amLODIPine 2.5 MG TAB PO SCH (13:00)
--- NOTE | 2021-04-08 15:24 | P.PN ---
Subjective Progress Note Date: 04/08/21 Principal diagnosis: Pneumonia Patient is a 80-year-old female, presented to the hospital with increasing shortness of breath and cough and this patient has been diagnosed with a pneumonia consult for possible gram-negative. On today's evaluation that is 04/08/2021, the patient is afebrile, the patient is breathing comfortably on room air today, patient denies having any chest pain, the patient cough has decreased intensity and is not bringing up any sputum production no abdominal pain or diarrhea has been reported by the nursing staff Objective - Vital Signs Vital signs: Vital Signs Temp 97.9 F 04/08/21 08:00 Pulse 95 04/08/21 12:47 Resp 18 04/08/21 08:55 BP 120/67 04/08/21 08:55 Pulse Ox 99 04/08/21 08:00 Intake & Output 04/07/21 04/08/21 04/08/21 18:59 06:59 18:59 Intake Total 296 592 Output Total 450 Balance 296 -450 592 Intake: Oral 296 592 Output: Urine 450 Other: Voiding Method External Catheter # Bowel Movements 1 - Exam GENERAL DESCRIPTION:[ Patient is awake and alert in no distress] HEENT: [Oral mucosa is dry and no pharyngeal erythema] RESPIRATORY SYSTEM: [Unlabored breathing Decreased breath sounds at the Base] CARDIA VASCULAR SYSTEM: [S1-S2 regular rate and rhythm no murmur] GI: [Abdominal soft there's no tenderness no organomegaly] EXTREMITIES: [No edema feet] - Labs CBC & Chem 7: 04/07/21 05:19 04/07/21 05:19 Labs: Microbiology - Last 24 Hours (Table) 04/02/21 22:00 Blood Culture - Preliminary Blood No Growth after 120 hours 04/02/21 20:59 Blood Culture - Preliminary Blood No Growth after 120 hours Assessment and Plan (1) Right upper lobe pneumonia Current Visit: Yes Status: Acute Code(s): J18.9 - PNEUMONIA, UNSPECIFIED ORGANISM SNOMED Code(s): 077589426 Plan: 1patient presented to hospital with sepsis in this patient did have a fever and elevated white count is concerning for pneumonia question of aspiration/gram- negative patient sputum has been usual respiratory delvis and blood culture had been negative, patient currently on Zosyn will finish therapy with oral antibiotics on discharge 2-leukocytosis more likely steroid effect as no evidence of any worsening infection in the white count was showing a downward trend,no CBC was done today Time with Patient: Less than 30
--- NOTE | 2021-04-08 15:25 | P.PN ---
Subjective Progress Note Date: 04/08/21 Principal diagnosis: Pneumonia. 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 patient follows with Dr. Granados in the pulmonary clinic. Patient marilyn dorantes resides in a local assisted secondary to having a CVA. Patient came into the emergency department brought in by EMS on the 04/02/2021 for evaluation of worsening shortness of breath, cough with purulent phlegm, she was also febrile on presentation with decreased responsiveness and fatigue. Patient was started on antibiotics initially because given a dose of Zithromax in the ER which was later switched to Zosyn. Patient has a area of chronic scarring in the right upper lobe, her chest x-ray in the emergency department showed pleural reaction and scarring and atelectasis in the lung bases, and infiltrate in the right upper lobe with mild volume loss that was increased from prior exam. Patient tested negative for COVID-19, her influenza A and B were also negative. She did have a leukocytosis with white blood cell count of 23, hemoglobin was 11.6, electrolytes are within normal limits, BUN was 18 creatinine 0.59, troponin was negative at less than 0.012, CRP was 13.7, LFTs were within normal limits. She was given some gentle IV hydration in the emergency department, she is getting IV fluids currently infusing at 130 ML per hour, she was started on breathing treatments, was started on antibiotics, she still coughing up some purulent colored phlegm which will be sent for cultures. But overall she appears to be in no acute distress, much more responsive, and more comfortable. On 5 L of oxygen her pulse ox today is 94%, she had low-grade fevers overnight. Progress note dated 04/04/2021. This is a 80-year-old female with a known history of COPD and chronic hypoxemic respiratory failure, and an FEV1 that is 50% of predicted, was admitted with a diagnosis of pneumonia. The patient follows with my partner in the pulmonary clinic. She was seen in consultation yesterday. She is feeling better today. She is a DO NOT RESUSCITATE patient. She states that she feels the 100% better. She is on 3 L nasal cannula, which is what she uses at home, and saline at 50 m L an hour. Her chest x-ray showed right upper lobe infiltrate. The patient has very mild conversational dyspnea. No use of accessory muscles. No audible wheezing. No new laboratory data today. Chest x-ray is reviewed. Progress note dated 04/07/2021. This is a 80-year-old female again seen in room 462. She has a known history of COPD and chronic hypoxemic respiratory failure. FEV1 is 50% predicted. She was admitted with a diagnosis of pneumonia. She follows with one of my partners in the pulmonary clinic. Currently she is on 4 L nasal cannula, and saline at 20 mL an hour. Current laboratory data includes a white count 14.1, hemoglobin 10.7, hematocrit 35, and platelet count 429,000. Sodium, potassium, chloride, CO2, and anion gap are all normal. The patient's BUN was 28 with a creatinine of 0.6. Microbiologic studies were negative. The chest x-ray from April 05 is reviewed. The patient is on Zosyn, and Zyvox, as per infectious diseases. Progress note dated 04/08/2021. 80-year-old female seen again in room 462. The patient's doing reasonably well. She does have quite severe COPD. FEV1 is 50% of predicted. She was admitted with a diagnosis of COPD and chronic hypoxemic respiratory failure. She also had pneumonia on chest x-ray. She remains on 3 L nasal cannula. She's not receiving any IV fluids. No new labs today other than a pro-calcitonin level of 0.06. Microbiology is negative. Objective - Vital Signs Vital signs: Vital Signs Temp 98.2 F 04/08/21 14:00 Pulse 109 H 04/08/21 14:00 Resp 18 04/08/21 14:00 BP 136/78 04/08/21 14:00 Pulse Ox 98 04/08/21 14:00 Intake & Output 04/07/21 04/08/21 04/08/21 18:59 06:59 18:59 Intake Total 296 592 Output Total 450 Balance 296 -450 592 Weight 49 kg Intake: Oral 296 592 Output: Urine 450 Other: Voiding Method External Catheter # Bowel Movements 1 - Exam No acute distress, oriented 3. Currently on 3 L nasal cannula. No use of accessory muscles. HEENT examination is grossly unremarkable. Neck supple. Full range of motion. No adenopathy thyromegaly or neck vein distention. Cardiovascular examination reveals regular rhythm rate. S1-S2 normal. No S3 or S4. No discernible murmur noted. Heart sounds are distant. Heart rate 93 bpm. Lungs reveal scattered bilateral rhonchi. No wheezes or crackles. Breath sounds equal bilaterally. There is prolongation on forced maneuver. Mild ex piratory wheezes on forced maneuver. Abdomen soft bowel sounds are heard. No masses or tenderness. Extremities are intact. No cyanosis clubbing or edema. Skin is without rash or lesion. Neurologic examination is brief but nonfocal. - Labs CBC & Chem 7: 04/07/21 05:19 04/07/21 05:19 Labs: Microbiology - Last 24 Hours (Table) 04/02/21 22:00 Blood Culture - Preliminary Blood No Growth after 120 hours 04/02/21 20:59 Blood Culture - Preliminary Blood No Growth after 120 hours Assessment and Plan Assessment: Acute on chronic hypoxemic respiratory failure secondary to right upper lobe pneumonia. Severe COPD, with an FEV1 that's 50% of predicted. Prior history of methicillin-resistant staph aureus pneumonia. Prior history of coronavirus infection, October 2020. Chronic hypoxemic respiratory failure, currently on home O2 at 3 L to 4 L/m. Chronic scarring, right upper lobe. Prior history of [id number] tobacco use. Compression fractures, thoracic and lumbar spine. Severe anorexia/cachexia syndrome. History of seizure disorder. History of chronic anxiety. Secondary pulmonary hypertension. History of CVA. Plan: Plan dated 04/04/2021. The patient was seen by infectious diseases, and prescribed Zosyn. The patient is also on updrafts, and Symbicort. Additional recommendations and suggestions are forthcoming. Prognosis is guarded. The patient was also placed on Zyvox. Current microbiology is negative. The patient is a DO NOT RESUSCITATE patient. Overall prognosis remains poor. We will continue to follow make recommendations where appropriate. Plan dated 04/07/2021. The patient is currently on Zosyn and Zyvox. The patient's on appropriate bronchodilator treatment. The patient is a DO NOT RESUSCITATE patient. We will go ahead and order a pro-calcitonin level. The patient is being followed by infectious disease physician. Additional recommendations and suggestions are forthcoming. Prognosis is guarded. Plan dated 04/08/2021. The patient is a DO NOT RESUSCITATE patient. The patient remains on antibiotics in the form of Zosyn. I am going to stop the Zyvox. Also, the patients Solu- Medrol will be converted to prednisone. The patient's currently on 3 L. We'll continue to follow. Prognosis is guarded. Chest x-ray is improved. The patient is not really manifesting much in the way of respiratory distress or difficulty. Time with Patient: Less than 30
[2021-04-08] MEDS: ASCORBIC ACID 500 MG TAB PO SCH (17:53)
[2021-04-08] MEDS: FERROUS SULFATE 325 MG TAB PO SCH (17:53)
[2021-04-08] MEDS: RIVAROXABAN 20 MG TAB PO SCH (17:53)
[2021-04-08] MEDS: CHOLECALCIFEROL 25 MCG (1000 IU) TABLET PO SCH (17:53)
[2021-04-09 03:23] LABS: Basophils % (A) 0 %; Eosinophils % (A) 0 %; HCT 37.4 % (34.0-46.0); HGB 11.5 gm/dL (11.4-16.0); Hypochromasia Slight; Lymphocytes # (A) 1.2 k/uL (1.0-4.8); Lymphocytes % (A) 6 %; MCHC 30.7 g/dL (31.0-37.0); Mean Platelet Volume 7.1; Monocytes # (A) 1.1 k/uL (0-1.0); Monocytes % (A) 5 %; Neutrophils # (A) 18.5 k/uL (1.3-7.7); Neutrophils % (A) 88 %; Platelet Count 383 k/uL (150-450); RBC 4.26 m/uL (3.80-5.40); RDW 14.4 % (11.5-15.5)
[2021-04-09 03:39] LABS: African American GFR (CKD) >90 (>60 ml/min/1.73 sqM); Anion Gap 2 mmol/L; Blood Urea Nitrogen 21 mg/dL (7-17); Calcium 9.4 mg/dL (8.4-10.2); Carbon Dioxide 34 mmol/L (22-30); Chloride 97 mmol/L (98-107); Glucose 107 mg/dL (74-99); Magnesium 1.7 mg/dL (1.6-2.3); Non-African American GFR(CKD) 87 (>60 ml/min/1.73 sqM); Potassium 4.5 mmol/L (3.5-5.1); Sodium 133 mmol/L (137-145)
[2021-04-09] MEDS: PIPERACILLIN-TAZOBACTAM 3.375 GM in SODIUM CHLORIDE 0.9% 100 ML IVPB SCH ×2 (05:20→15:41)
[2021-04-09] MEDS: HYDROcodone/APAP 5-325MG 1 EACH TAB PO SCH ×4 (05:20→22:27)
[2021-04-09] MEDS: BUDESONIDE 1 MG/2 ML NEBU INHALATION SCH ×2 (08:10→20:12)
[2021-04-09] MEDS: IPRATROPIUM-ALBUTEROL 3 ML NEB INHALATION SCH ×4 (08:11→20:12)
[2021-04-09] MEDS: FORMOTEROL FUMARATE 20 MCG/2 ML NEBU INHALATION SCH ×2 (08:11→20:12)
[2021-04-09] MEDS: LIDOCAINE 5% PATCH TOPICAL SCH (09:07)
[2021-04-09] MEDS: levETIRAcetam ORAL SOLN 500 MG/5 ML CUP PO SCH ×2 (09:08→21:19)
[2021-04-09] MEDS: PANTOPRAZOLE 40 MG TABLET PO SCH (09:09)
[2021-04-09] MEDS: predniSONE 10 MG TAB PO SCH (09:09)
[2021-04-09] MEDS: amLODIPine 2.5 MG TAB PO SCH (09:09)
[2021-04-09] MEDS: LORATADINE-PSEUDOEPH 5-120 MG 1 EACH TAB.ER.12H PO SCH ×2 (09:10→21:19)
[2021-04-09] MEDS: FLUCONAZOLE 100 MG TAB PO SCH (09:10)
[2021-04-09] MEDS: LOSARTAN 25 MG TAB PO SCH (09:10)
[2021-04-09] MEDS: guaiFENesin 600 MG TABLET.ER PO SCH ×2 (09:10→21:19)
--- NOTE | 2021-04-09 11:05 | P.CRDCN ---
History of Present Illness Consult date: 04/09/21 History of present illness: History of Presenting Illness: Patient is a very pleasant 80-year-old female with a past medical history of CVA with left-sided residual deficits, hypertension, advanced COPD with pulmonary hypertension home oxygen dependent on 4 L, seizure disorder, and bilateral PEs on chronic anticoagulation with Xarelto. patient is currently admitted with acute on chronic hypoxic respiratory failure secondary to right upper lobe pneumonia with severe COPD. We have been consulted for concerns regarding abnorm al EKG. Initial EKG revealed sinus tachycardia at 108 bpm with PACs on 04/02/21 and repeat EKG on 04/08/21 reviewed revealing sinus rhythm with PACs, no T-wave or ST abnormalities showing no signs of acute ischemia. Labs reviewed revealing significant leukocytosis with WBC count of 21.0 with left shift, hyponatremia with sodium of 133, non-anion gap metabolic acidosis with chloride 97, bicarb 34, and anion gap of 2, prerenal azotemia with BUN of 21, and hypomagnesemia with magnesium of 1.7. Chest x-ray revealed patchy left basilar infiltrate with continued irregular and patchy opacities throughout the right upper lobe. Patient seen and fully evaluated at the bedside. Patient denies having any cardiac complaints or concerns including headache, lightheadedness, dizziness, chest pain, palpitations, or experiencing any numbness/tingling/weakness in her extremities. Review of systems: Pertinent positives and negatives as discussed in HPI, a complete review of systems was performed and all other systems are negative. Physical exam: Vital signs reviewed and stable. General: Nontoxic, chronically ill, thin and frail Derm: Skin warm and dry, normal coloration for ethnicity. Head: Atraumatic, normocephalic and symmetric. Eyes: EOMs intact, no lid lag, and anicteric sclera Mouth: no lip lesions, mucus membranes moist Cardiovascular: regular rate and rhythm with normal S1S2, no murmur, positive p osterior tibial pulses bilaterally, and cap refill < 2 seconds. Lungs: Respirations even, regular, and unlabored on 3 L O2 via nasal cannula. Lungs tight with diffuse rhonchi and bilateral soft expiratory wheezes. No crackles noted and no accessory muscle usage. Abdominal: soft, nontender to palpation, no guarding, no appreciable organomegaly Ext: ROM intact. No gross muscle atrophy, no edema, no contractures Neuro: Speech clear, face symmetrical and CN II-XII grossly intact with no noted focal neuro deficits Psych: Alert and oriented to person, place, time, and situation. Appropriate and pleasant affect. Assessment and Plan of Care: Acute on chronic hypoxic respiratory failure secondary to right upper lobe pneumonia with severe COPD Hypertension on daily medication regimen with losartanAnd amlodipine Seizure disorder on antiepileptic medication Keppra History of bilateral PEs on chronic anticoagulation with Xarelto Leukocytosis Hyponatremia Non-anion gap metabolic acidosis Hypomagnesemia -EKG reviewed revealing sinus rhythm with PACs, no T-wave or ST abnormalities showing no signs of acute ischemia. -Recommend patient continue daily medication regimen with losartan and amlodipine along with continued anticoagulation with Xarelto secondary to history of PEs. -Continue treatment of right upper lobe pneumonia with acute on chronic hypoxic respiratory failure by primary admitting medicine team along with pulmonology, patient currently on antibiotics with Zosyn -From a cardiac standpoint, EKGs showing no signs of acute ischemia and no further cardiac workup recommended at this time. -Cardiology will sign off at this time, however please do not hesitate to contact with any further questions or concerns. We will evaluate further only on an as needed basis if contacted. Thank you for allowing us to participate in the care of this pleasant patient. Do not hesitate to contact us with questions. Past Medical History Past Medical History: COPD, CVA/TIA, Pneumonia, Respiratory Disorder Additional Past Medical History / Comment(s): cataracts(sx done), "bruises easily-thin fragile skin", lower dental bridge, CVA September, Covid 10/2020 History of Any Multi-Drug Resistant Organisms: MRSA Date of last positivie culture/infection: 11/14/20 MDRO Source:: MRSA SPUTUM Past Surgical History: Appendectomy, Tonsillectomy Additional Past Surgical History / Comment(s): Bilateral cataracts Past Anesthesia/Blood Transfusion Reactions: No Reported Reaction Past Psychological History: Anxiety Smoking Status: Former smoker Past Alcohol Use History: None Reported Past Drug Use History: None Reported - Past Family History Mother Family Medical History: Myocardial Infarction ([place]) Additional Family Medical History / Comment(s): Mother from a ruptured brain aneurysm, history of a heart attack Father Family Medical History: Diabetes Mellitus Additional Family Medical History / Comment(s): "heart problems" Father from bladder cancer , Medications and Allergies Home Medications Medication Instructions Recorded Confirmed Type Budesonide-Formot 160-4.5 Mcg 2 puff INHALATION RT-BID@0800,1700 06/28/19 04/02/21 History [Symbicort 160-4.5 Mcg Inhaler] Ipratropium-Albuterol Nebulize 3 ml INHALATION RT-QID 10/16/20 04/02/21 History [Duoneb 0.5 mg-3 mg/3 ml Soln] Ipratropium-Albuterol Nebulize 3 ml INHALATION RT-QID PRN 10/16/20 04/02/21 History [Duoneb 0.5 mg-3 mg/3 ml Soln] Lactose-Reduced Food [Ensure Plus] 120 ml PO BID@0800,1700 10/16/20 04/02/21 History Losartan [Cozaar] 25 mg PO DAILY@0800 10/16/20 04/02/21 History Magnesium Hydroxide [Milk of 7,200 mg PO DAILY PRN 10/16/20 04/02/21 History Magnesia Concentrate] Na Phos,M-B/Na Phos,Di-Ba [Fleet 133 ml RECTAL DAILY PRN 10/16/20 04/02/21 History Adult] Pantoprazole [Protonix] 40 mg PO DAILY@0600 10/16/20 04/02/21 History Sodium Chloride [Saline Nasal 1 spray EA NOSTRIL Q2H PRN 10/16/20 04/02/21 History [place]] bisacodyL [Dulcolax] 10 mg RECTAL DAILY PRN 10/16/20 04/02/21 History levETIRAcetam ORAL SOLN [Keppra 500 mg PO BID@0800,2100 10/16/20 04/02/21 History Oral Soln] predniSONE 10 mg PO DAILY@0800 10/16/20 04/02/21 History Acetaminophen Tab [Tylenol] 500 mg PO Q6HR PRN tab 10/22/20 04/02/21 Rx Cholecalciferol [Vitamin D3 (25 100 mcg PO DAILY@17011/03/20 04/02/21 History Mcg = 1000 Iu)] Melatonin 3 mg PO HS PRN tablet 11/09/20 04/02/21 Rx Rivaroxaban [Xarelto] 20 mg PO DAILY@17011/14/2004/02/22 History HYDROcodone/APAP 5-325MG [[place] 1 tab PO Q6H #12 tab 11/18/20 04/02/21 Rx 5-325] Ascorbic Acid [Vitamin C] 500 mg PO DAILY@169911/28/20 04/02/21 History Lidocaine 5% Patch [Lidoderm 5% 1 patch TRANSDERM DAILY@0811/28/20 04/02/21 History Patch] ALPRAZolam [Xanax] 0.25 mg PO Q8H PRN 04/02/21 04/02/21 History Albuterol Sulfate [Albuterol 2 puff PO RT-Q6H PRN 04/02/21 04/02/21 History Sulfate Hfa] Dronabinol [Marinol] 2.5 mg PO DAILY@0804/02/21 04/02/21 History Ferrous Sulfate [Feosol] 325 mg PO DAILY@169904/02/21 04/02/21 History Fluticasone Nasal [place] [Flonase 2 spray EA NOSTRIL HS@209904/02/21 04/02/21 History Nasal [place]] guaiFENesin [Mucinex] 600 mg PO BID@0800,209904/02/21 04/02/21 History guaiFENesin [guaiFENesin Oral 200 mg PO Q4H PRN 04/02/21 04/02/21 History Solution] Allergies Allergy/AdvReac Type Severity Reaction Status Date / Time aspirin AdvReac excessive Verified 04/02/21 23:01 brusing Physical Exam Vitals: Vital Signs Temp Pulse Pulse Resp BP Pulse Ox 04/09/21 08:00 98.1 F 89 16 127/73 98 04/09/21 02:12 98.0 F 64 177/82 99 04/08/21 20:30 88 04/08/21 20:24 88 04/08/21 20:21 84 04/08/21 20:14 80 04/08/21 20:00 98.8 F 80 18 138/74 99 04/08/21 16:27 90 04/08/21 16:18 88 04/08/21 14:00 98.2 F 109 H 18 136/78 98 04/08/21 12:47 95 04/08/21 12:36 92 Intake and Output 04/08/21 04/09/21 04/09/21 22:59 06:59 14:59 Intake Total 1100 Output Total 900 900 Balance -900 200 Intake: Intake, IV Titration 800 Amount Piperacillin-Tazobactam 3 200 .375 gm In Sodium Chloride 0.9% 100 ml @ 25 mls/hr IVPB Q8H [facility] Rx#: [id number] Sodium Chloride 0.9% 1, 600 000 ml @ 50 mls/hr IV . Q20H [facility] Rx#:[id number] Oral 300 Output: Urine 900 900 Other: Voiding Method External Catheter Results 04/09/21 02:19 04/09/21 02:19 CBC 04/09/21 Range/Units 02:19 WBC 21.0 H (3.8-10.6) k/uL RBC 4.26 (3.80-5.40) m/uL Hgb 11.5 (11.4-16.0) gm/dL Hct 37.4 (34.0-46.0) % Plt Count 383 (150-450) k/uL Comprehensive Metabolic Panel 04/09/21 Range/Units 02:19 Sodium 133 L (137-145) mmol/L Potassium 4.5 (3.5-5.1) mmol/L Chloride 97 L (98-107) mmol/L Carbon Dioxide 34 H (22-30) mmol/L BUN 21 H (7-17) mg/dL Creatinine 0.61 (0.52-1.04) mg/dL Glucose 107 H (74-99) mg/dL Calcium 9.4 (8.4-10.2) mg/dL Current Medications Generic Name Dose Route Start Last Admin Trade Name Freq PRN Reason Stop Dose Admin Hydrocodone Bitart/Acetaminophen 1 each 04/07/21 05:00 04/09/21 05:20 Hydrocodone/Apap 5-325mg 1 Each Tab PO 1 each Q6H RUBIN Administration Albuterol Sulfate 2 puff 04/03/21 07:20 Albuterol Hfa Inhaler INHALATION RT-Q6H PRN Shortness Of Breath Albuterol/Ipratropium 3 ml 04/03/21 08:00 04/09/21 08:11 Ipratropium-Albuterol 3 Ml Neb INHALATION Not Given RT-QID [facility] Alprazolam 0.25 mg 04/03/21 07:20 04/08/21 03:09 Alprazolam 0.25 Mg Tab PO 0.25 mg Q8H PRN Administration Anxiety/Restlessness Amlodipine Besylate 2.5 mg 04/08/21 12:15 04/09/21 09:09 Amlodipine 2.5 Mg Tab PO 2.5 mg DAILY [facility]IN Administration Ascorbic Acid 500 mg 04/03/21 17:00 04/08/21 17:53 Ascorbic Acid 500 Mg Tab PO 500 mg DAILY@1700 R[facility]IN Administration Budesonide 1 mg 04/05/21 20:00 04/09/21 08:10 Budesonide 1 Mg/2 Ml Nebu INHALATION Not Given RT-BID [facility] Cholecalciferol 100 mcg 04/03/21 17:00 04/08/21 17:53 Cholecalciferol 25 Mcg (1000 Iu) Tablet PO 100 mcg DAILY@1700 R[facility]IN Administration Dronabinol 2.5 mg 04/03/21 08:00 04/09/21 09:09 Dronabinol 2.5 Mg Cap PO 2.5 mg DAILY@0800 [facility] Administration Ferrous Sulfate 325 mg 04/03/21 17:00 04/08/21 17:53 Ferrous Sulfate 325 Mg Tab PO 325 mg DAILY@1700 [facility] Administration Fluconazole 100 mg 04/04/21 09:00 04/09/21 09:10 Fluconazole 100 Mg Tab PO 100 mg DAILY [facility] Administration Fluticasone Propionate 2 spray 04/03/21 21:00 04/08/21 22:41 Fluticasone 50mcg/[place] Nasal 16gm EA NOSTRIL 2 spray HS@2100 [facility] Administration Formoterol Fumarate 20 mcg 04/05/21 20:00 04/09/21 08:11 Formoterol Fumarate 20 Mcg/2 Ml Nebu INHALATION Not Given RT-BID [facility] Guaifenesin 600 mg 04/03/21 08:00 04/09/21 09:10 Guaifenesin 600 Mg Tablet.Er PO 600 mg BID@0800,2100 R[facility] Administration Piperacillin Sod/Tazobactam 100 mls @ 25 mls/hr 04/03/21 06:00 04/09/21 05:20 Sod 3.375 gm/ Sodium Chloride IVPB 25 mls/hr Q8H [facility] Administration Sodium Chloride 1,000 mls @ 50 mls/hr 04/07/21 20:00 04/08/21 16:51 Saline 0.9% IV Not Given .Q20H [facility] Levetiracetam 500 mg 04/03/21 08:00 04/09/21 09:08 Levetiracetam Oral Soln 500 Mg/5 Ml Cup PO 500 mg BID@0800,2100 [facility] Administration Lidocaine 1 patch 04/03/21 08:00 04/09/21 09:07 Lidocaine 5% Patch TOPICAL 1 patch DAILY@0800 [facility] Administration Protocol Loratadine/Pseudoephedrine Sulfate 1 each 04/07/21 21:00 04/09/21 09:10 Loratadine-Pseudoeph 5-120 Mg 1 Each Tab.Er.12h PO 1 each Q12HR [facility]IN Administration Losartan Potassium 25 mg 04/03/21 08:00 04/09/21 09:10 Losartan 25 Mg Tab PO 25 mg DAILY@0800 [facility] Administration Melatonin 3 mg 04/03/21 07:20 Melatonin 3 Mg Tablet PO HS PRN Insomnia Miscellaneous Information 1 each 04/02/21 21:17 Pneumonia Protocol Utilized 1 Each Misc PO ONCE PRN Per Protocol Pantoprazole Sodium 40 mg 04/04/21 07:30 04/09/21 09:09 Pantoprazole 40 Mg Tablet PO 40 mg [id number] [facility]IN Administration Prednisone 30 mg 04/09/21 09:00 04/09/21 09:09 Prednisone 10 Mg Tab PO 30 mg DAILY RUBIN Administration Rivaroxaban 20 mg 04/03/21 17:00 04/08/21 17:53 Rivaroxaban 20 Mg Tab PO 20 mg DAILY@1700 [facility] Administration Protocol Sodium Chloride 1 spray 04/03/21 11:06 Sodium Chloride 0.65% Nasal [place] 44 Ml Btl INTRANASAL Q2H PRN Congestion Intake and Output 04/08/21 04/09/21 04/09/21 22:59 06:59 14:59 Intake Total 1100 Output Total 900 900 Balance -900 200 Intake: Intake, IV Titration 800 Amount Piperacillin-Tazobactam 3 200 .375 gm In Sodium Chloride 0.9% 100 ml @ 25 mls/hr IVPB Q8H [facility] Rx#: [id number] Sodium Chloride 0.9% 1, 600 000 ml @ 50 mls/hr IV . Q20H [facility] Rx#:[id number] Oral 300 Output: Urine 900 900 Other: Voiding Method External Catheter 04/09/21 02:19 04/09/21 02:19
[2021-04-09] MEDS: SODIUM CHLORIDE 0.9% 1,000 ML IV SCH (12:38)
[2021-04-09] MEDS: MAGNESIUM SULFATE-D5W PMX 1 GM in DEXTROSE/WATER 1 100ML.BAG IVPB SCH ×2 (15:40→17:01)
--- NOTE | 2021-04-09 15:52 | P.PN ---
Subjective This is a pleasant 80-year-old patient,from [facility]. followed by Dr. Granado. . 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 Has been n onambulatory. Bilateral pulmonary embolism in October 2020 on xarelto, DO NOT RESUSCITATE Patient now presents with increasing shortness of breath. Has had a cough she says for about 2 weeks. Bringing up green sputum. Very congested. Decreased appetite. Patient is weak and tired. Not sure if she's had a fever. Tired. Patient is a full assist. No hemoptysis. Admitted with right upper lobe pneumonia, started on IV Zosyn. Acute hypoxic respiratory failure on LCannula. Pharyngeal candidiasis. Started on Diflucan April 04: Short of breath but a bit better. Less congested cough. Eating a bit better. Propped up in bed. 3 L nasal cannula. Tired. April 05: Short of breath. Tired. Decreased appetite. 4 L nasal cannula. April 06: Reclining in chair. Eating a bit better today. Cough is sputum. Tired. Shortness of breath. March 2016: In bed. Eating fair. Congested cough is sputum. Short of breath. 04/08/2021 This is a pleasant 80 years old female with multiple medical problems including severe COPD presents with acute exacerbation of her COPD on the top of that she has bilateral pneumonia of the right upper lobe and the left lower lobe and she's been covered with multiple antibiotics including Diflucan, Zyvox orally and Zosyn. Her pro-calcitonin checked on admission was normal at 0.09 and yesterday 0.06. Leukocytosis is trending down to 14.1 Patient still have some shortness of breath and expiratory wheezing on examination. Norvasc was added today for better blood pressure controlled She continue also on Solu-Medrol 40 mg twice daily, home dose of Xarelto for her history of bilateral pulmonary embolism normal saline at 50 mL per hour 04/09/2021 Patient still short of breath while she is a staying in bed most of the time. She does not have much tachypnea at rest but once she starts talking she did get more short of breath. Blood pressure is 114/76 after starting her on Norvasc 2.5 mg. She has some leukocytosis secondary to steroid effect. She is continued on prednisone 30 mg daily. Antibiotics were adjusted to Zosyn and Diflucan only. Also she is on Xarelto on normal saline at 50 mL per hour. Objective - Vital Signs Vital signs: Vital Signs Temp 98.1 F 04/09/21 08:00 Pulse 104 H 04/09/21 12:18 Resp 16 04/09/21 08:00 BP 127/73 04/09/21 08:00 Pulse Ox 96 04/09/21 12:11 Intake & Output 04/08/21 04/09/21 04/09/21 18:59 06:59 18:59 Intake Total 592 1100 Output Total 900 900 Balance -308 200 Weight 49 kg Intake: Intake, IV Titration 800 Amount Piperacillin-Tazobactam 3 200 .375 gm In Sodium Chloride 0.9% 100 ml @ 25 mls/hr IVPB Q8H [facility] Rx#: [id number] Sodium Chloride 0.9% 1, 600 000 ml @ 50 mls/hr IV . Q20H [facility] Rx#:[id number] Oral 592 300 Output: Urine 900 900 Other: Voiding Method External Catheter External Catheter # Bowel Movements 2 - Exam -GENERAL: The patient is alert and oriented x3, not in any acute distress. Cachectic HEENT: Pupils are round and equally reacting to light. EOMI. No scleral icterus. No conjunctival pallor. Normocephalic, atraumatic. No pharyngeal erythema. No thyromegaly. CARDIOVASCULAR: S1 and S2 present. No murmurs, rubs, or gallops. -PULMONARY: Chest is clear to auscultation. Expiratory wheezing ABDOMEN: Soft, nontender, nondistended, normoactive bowel sounds. No palpable organomegaly. MUSCULOSKELETAL: No joint swelling or deformity. EXTREMITIES: No cyanosis, clubbing, or pedal edema. NEUROLOGICAL: Gross neurological examination did not reveal any focal deficits. SKIN: No rashes. no petechiae. - Labs CBC & Chem 7: 04/09/21 02:19 04/09/21 02:19 Labs: Abnormal Lab Results - Last 24 Hours (Table) 04/09/21 04/09/21 Range/Units 02:19 02:19 WBC 21.0 H (3.8-10.6) k/uL MCHC 30.7 L (31.0-37.0) g/dL Neutrophils # 18.5 H (1.3-7.7) k/uL Monocytes # 1.1 H (0-1.0) k/uL Sodium 133 L (137-145) mmol/L Chloride 97 L (98-107) mmol/L Carbon Dioxide 34 H (22-30) mmol/L BUN 21 H (7-17) mg/dL Glucose 107 H (74-99) mg/dL Microbiology - Last 24 Hours (Table) 04/02/21 22:00 Blood Culture - Final Blood No Growth after 144 hours 04/02/21 20:59 Blood Culture - Final Blood No Growth after 144 hours 04/08/21 11:37 Nasal Screen MRSA/MSSA - Preliminary Nasopharyngeal Swab Assessment and Plan Assessment: -Right upper lobe pneumonia, suspect gram-negative organism: Slow to respond IV Zosyn. Zyvox Sputum for Gram stain and culture: Unremarkable. Mucinex. -Acute hypoxic respiratory failure from pneumonia/COPD exacerbation: 3 L nasal cannula -Pharyngeal candidiasis Diflucan -Normocytic anemia of chronic disease. Follow H&H -Chronic advanced prednisone dependent COPD in a previous smoker: Slow to respond DuoNeb 4 times a day, stop Symbicort ., IV Solu-Medrol. Perforomist and Pulmicort -Chronic bilateral pulmonary embolism Xarelto -chronic hypoxic respiratory failure from COPD exacerbation: 3 L nasal cannula -Severe protein calorie malnutrition from decreased oral intake Nutritional supplement. Consult dietitian -Left hemiparesis from prior stroke Patient non-ambulatory -Chronic medical debility She is a full assist non- ambulatory -Essential hypertension Cozaar 25 mg daily -GERD Protonix 40 mg daily -muscular skeletal pain. Primary osteoarthritis [place] 5/500 one tablet every 6 when necessary -DO NOT RESUSCITATE
--- NOTE | 2021-04-09 16:35 | P.PN ---
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 patient follows with Dr. Granados in the pulmonary clinic. Patient currently resides in a local shelter secondary to having a CVA. Patient came into the emergency department brought in by EMS on the 04/02/2021 for evaluation of worsening shortness of breath, cough with purulent phlegm, she was also febrile on presentation with decreased responsiveness and fatigue. Patient was started on antibiotics initially because given a dose of Zithromax in the ER which was later switched to Zosyn. Patient has a area of chronic scarring in the right upper lobe, her chest x-ray in the emergency department showed pleural reaction and scarring and atelectasis in the lung bases, and infiltrate in the right upper lobe with mild volume loss that was increased from prior exam. Patient tested negative for COVID-19, her influenza A and B were also negative. She did have a leukocytosis with white blood cell count of 23, hemoglobin was 11.6, electrolytes are within normal limits, BUN was 18 creatinine 0.59, troponin was negative at less than 0.012, CRP was 13.7, LFTs were within normal limits. She was given some gentle IV hydration in the emergency department, she is getting IV fluids currently infusing at 130 ML per hour, she was started on breathing treatments, was started on antibiotics, she still coughing up some purulent colored phlegm which will be sent for cultures. But overall she appears to be in no acute distress, much more responsive, and more comfortable. On 5 L of oxygen her pulse ox today is 94%, she had low-grade fevers overnight. Progress note dated 04/04/2021. This is a 80-year-old female with a known history of COPD and chronic hypoxemic respiratory failure, and an FEV1 that is 50% of predicted, was admitted with a diagnosis of pneumonia. The patient follows with my partner in the pulmonary clinic. She was seen in consultation yesterday. She is feeling better today. She is a DO NOT RESUSCITATE patient. She states that she feels the 100% better. She is on 3 L nasal cannula, which is what she uses at home, and saline at 50 mL an hour. Her chest x-ray showed right upper lobe infiltrate. The patient has very mild conversational dyspnea. No use of accessory muscles. No audible wheezing. No new laboratory data today. Chest x-ray is reviewed. The patient is seen today 04/05/2021 in follow-up on the regular medical floor. She is currently sitting up in bed. Talking on the phone. No worsening shortness of breath, cough or congestion. Maintaining O2 saturations in the 90s on 4 L/m per nasal cannula. She remains afebrile. Hemodynamically stable. Follow-up chest x-ray reveals underlying emphysema. Patchy infiltrate in the right upper lobe remains. Blood cultures revealed no growth. Sputum culture revealed no growth. She is continued on Symbicort, DuoNeb inhalations, IV Solu- Medrol. Remains on antibiotics in the form of Zosyn and Zyvox. Anticoagulated with Xarelto. The patient is seen today 04/06/2021 in follow-up on the regular medical floor. She is currently resting comfortably in bed. Awake and alert in no acute distress. Maintaining O2 saturations in the 90s on 4 L/m per nasal cannula. She is continued on bronchodilators, IV Solu-Medrol, antibiotics in the form of Zosyn and Zyvox. She is also on Diflucan. Anticoagulated with Xarelto. Blood and sputum cultures revealed no growth. Chest x-ray remains stable with underlying emphysematous changes and patchy infiltrate of the right upper lobe as well as left medial lung. Some chronicity. The patient is seen today 04/09/2021 in follow-up on the regular medical floor. She is awake and alert in no acute distress. Feeling back to her baseline as far as her breathing is concerned. Continues to maintain O2 saturations in the 90s on 3 L/m per nasal cannula. Normal saline at 50 MLS per hour. He remains on antibiotics in the form of Zosyn. Continued on DuoNeb inhalations, Pulmicort and Perforomist inhalations, prednisone. Anticoagulated with Xarelto. Sputum culture revealed no growth. Blood cultures reveal no growth. White count 21.0. Hemoglobin 11.5. Sodium 133. Potassium 4.5. Creatinine 0.61. Pro-calcitonin 0.06. Objective - Vital Signs Vital signs: Vital Signs Temp 98.0 F 04/09/21 14:00 Pulse 98 04/09/21 14:00 Resp 18 04/09/21 14:00 BP 114/76 04/09/21 14:00 Pulse Ox 98 04/09/21 14:00 Intake & Output 04/08/21 04/09/21 04/09/21 18:59 06:59 18:59 Intake Total 592 1100 Output Total 900 900 Balance -308 200 Weight 49 kg Intake: Intake, IV Titration 800 Amount Piperacillin-Tazobactam 3 200 .375 gm In Sodium Chloride 0.9% 100 ml @ 25 mls/hr IVPB Q8H RUBIN Rx#: [id number] Sodium Chloride 0.9% 1, 600 000 ml @ 50 mls/hr IV . Q20H RUBIN Rx#:[id number] Oral 592 300 Output: Urine 900 900 Other: Voiding Method External Catheter External Catheter # Bowel Movements 2 - Exam GENERAL EXAM: Alert, frail, pleasant 80-year-old female, on 4 L/m per nasal cannula, comfortable in no apparent distress. HEAD: Normocephalic. EYES: Normal reaction of pupils, equal size. NOSE: Clear with pink turbinates. THROAT: No erythema or exudates. NECK: No masses, no JVD. CHEST: No chest wall deformity. LUNGS: Equal air entry with bilateral scattered rhonchi. CVS: S1 and S2 normal with no audible murmur, regular rhythm. ABDOMEN: No hepatosplenomegaly, normal bowel sounds, no guarding or rigidity. SPINE: No scoliosis or deformity SKIN: No rashes CENTRAL NERVOUS SYSTEM: No focal deficits, tone is normal in all 4 extremities. EXTREMITIES: There is no peripheral edema. No clubbing, no cyanosis. Peripheral pulses are intact. - Labs CBC & Chem 7: 04/09/21 02:19 04/09/21 02:19 Labs: Abnormal Lab Results - Last 24 Hours (Table) 04/09/21 04/09/21 Range/Units 02:19 02:19 WBC 21.0 H (3.8-10.6) k/uL MCHC 30.7 L (31.0-37.0) g/dL Neutrophils # 18.5 H (1.3-7.7) k/uL Monocytes # 1.1 H (0-1.0) k/uL Sodium 133 L (137-145) mmol/L Chloride 97 L (98-107) mmol/L Carbon Dioxide 34 H (22-30) mmol/L BUN 21 H (7-17) mg/dL Glucose 107 H (74-99) mg/dL Microbiology - Last 24 Hours (Table) 04/02/21 22:00 Blood Culture - Final Blood No Growth after 144 hours 04/02/21 20:59 Blood Culture - Final Blood No Growth after 144 hours 04/08/21 11:37 Nasal Screen MRSA/MSSA - Preliminary Nasopharyngeal Swab Assessment and Plan Assessment: 1 Acute on chronic hypoxemic respiratory failure secondary to right upper lobe pneumonia some limited left midlung infiltrate. Currently on 4 L nasal cannula. 2 Severe COPD, with an FEV1 that's 50% of predicted. 3 Prior history of methicillin-resistant staph aureus pneumonia. 4 Prior history of coronavirus infection, October 2020. 5 Chronic hypoxemic respiratory failure, currently on home O2 at 3 L to 4 L/m. 6 Chronic scarring, right upper lobe. 7 Prior history of [id number] tobacco use. 8 Compression fractures, thoracic and lumbar spine. 9 Severe anorexia/cachexia syndrome. 10 History of seizure disorder. 11 History of chronic anxiety. 12 Secondary pulmonary hypertension. 13 History of CVA. Plan: The patient was seen and evaluated Currently stable and on 4 L nasal cannula Discontinue Zosyn, initiate Augmentin Continue bronchodilators, and insulin Titrate the FiO2 as tolerated Plan is to transfer back to [facility] upon discharge I, the cosigning physician, performed a history & physical examination of the patient. Lungs sounds with bilateral scattered rhonchi. Maintaining good O2 saturations in the 90s on 4 L/m per nasal cannula. I discussed the assessment and plan of care with my nurse practitioner, Darlene Underwood. I attest to the above note as dictated by her.
[2021-04-09] MEDS: CHOLECALCIFEROL 25 MCG (1000 IU) TABLET PO SCH (17:02)
[2021-04-09] MEDS: ASCORBIC ACID 500 MG TAB PO SCH (17:02)
[2021-04-09] MEDS: RIVAROXABAN 20 MG TAB PO SCH (17:02)
[2021-04-09] MEDS: FERROUS SULFATE 325 MG TAB PO SCH (17:02)
[2021-04-09] MEDS: AMOXIC-POT CLAV 875-125MG 1 EACH TAB PO SCH (21:18)
[2021-04-09] MEDS: FLUTICASONE 50MCG/SPRAY NASAL 16GM EA NOSTRIL SCH (21:20)
[2021-04-10] MEDS: HYDROcodone/APAP 5-325MG 1 EACH TAB PO SCH ×4 (05:46→22:05)
[2021-04-10] MEDS: IPRATROPIUM-ALBUTEROL 3 ML NEB INHALATION SCH ×4 (08:08→20:17)
[2021-04-10] MEDS: FORMOTEROL FUMARATE 20 MCG/2 ML NEBU INHALATION SCH ×2 (08:08→20:18)
[2021-04-10] MEDS: BUDESONIDE 1 MG/2 ML NEBU INHALATION SCH ×2 (08:12→20:17)
[2021-04-10] MEDS: AMOXIC-POT CLAV 875-125MG 1 EACH TAB PO SCH ×2 (09:25→22:05)
[2021-04-10] MEDS: amLODIPine 2.5 MG TAB PO SCH (09:25)
[2021-04-10] MEDS: LOSARTAN 25 MG TAB PO SCH (09:26)
[2021-04-10] MEDS: PANTOPRAZOLE 40 MG TABLET PO SCH (09:26)
[2021-04-10] MEDS: FLUCONAZOLE 100 MG TAB PO SCH (09:26)
[2021-04-10] MEDS: predniSONE 10 MG TAB PO SCH (09:26)
[2021-04-10] MEDS: guaiFENesin 600 MG TABLET.ER PO SCH ×2 (09:27→22:05)
[2021-04-10] MEDS: LORATADINE-PSEUDOEPH 5-120 MG 1 EACH TAB.ER.12H PO SCH ×2 (09:27→22:05)
[2021-04-10] MEDS: LIDOCAINE 5% PATCH TOPICAL SCH (09:28)
[2021-04-10] MEDS: levETIRAcetam ORAL SOLN 500 MG/5 ML CUP PO SCH ×2 (09:28→22:05)
[2021-04-10] MEDS: SODIUM CHLORIDE 0.9% 1,000 ML IV SCH (09:29)
--- NOTE | 2021-04-10 14:36 | P.PN ---
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 patient follows with Dr. Granados in the pulmonary clinic. Patient currently resides in a local long-term secondary to having a CVA. Patient came into the emergency department brought in by EMS on the 04/02/2021 for evaluation of worsening shortness of breath, cough with purulent phlegm, she was also febrile on presentation with decreased responsiveness and fatigue. Patient was started on antibiotics initially because given a dose of Zithromax in the ER which was later switched to Zosyn. Patient has a area of chronic scarring in the right upper lobe, her chest x-ray in the emergency department showed pleural reaction and scarring and atelectasis in the lung bases, and infiltrate in the right upper lobe with mild volume loss that was increased from prior exam. Patient tested negative for COVID-19, her influenza A and B were also negative. She did have a leukocytosis with white blood cell count of 23, hemoglobin was 11.6, electrolytes are within normal limits, BUN was 18 creatinine 0.59, troponin was negative at less than 0.012, CRP was 13.7, LFTs were within normal limits. She was given some gentle IV hydration in the emergency department, she is getting IV fluids currently infusing at 130 ML per hour, she was started on breathing treatments, was started on antibiotics, she still coughing up some purulent colored phlegm which will be sent for cultures. But overall she appears to be in no acute distress, much more responsive, and more comfortable. On 5 L of oxygen her pulse ox today is 94%, she had low-grade fevers overnight. Progress note dated 04/04/2021. This is a 80-year-old female with a known history of COPD and chronic hypoxemic respiratory failure, and an FEV1 that is 50% of predicted, was admitted with a diagnosis of pneumonia. The patient follows with my partner in the pulmonary clinic. She was seen in consultation yesterday. She is feeling better today. She is a DO NOT RESUSCITATE patient. She states that she feels the 100% better. She is on 3 L nasal cannula, which is what she uses at home, and saline at 50 mL an hour. Her chest x-ray showed right upper lobe infiltrate. The patient has very mild conversational dyspnea. No use of accessory muscles. No audible wheezing. No new laboratory data today. Chest x-ray is reviewed. The patient is seen today 04/05/2021 in follow-up on the regular medical floor. She is currently sitting up in bed. Talking on the phone. No worsening shortness of breath, cough or congestion. Maintaining O2 saturations in the 90s on 4 L/m per nasal cannula. She remains afebrile. Hemodynamically stable. Follow-up chest x-ray reveals underlying emphysema. Patchy infiltrate in the right upper lobe remains. Blood cultures revealed no growth. Sputum culture revealed no growth. She is continued on Symbicort, DuoNeb inhalations, IV Solu- Medrol. Remains on antibiotics in the form of Zosyn and Zyvox. Anticoagulated with Xarelto. The patient is seen today 04/06/2021 in follow-up on the regular medical floor. She is currently resting comfortably in bed. Awake and alert in no acute distress. Maintaining O2 saturations in the 90s on 4 L/m per nasal cannula. She is continued on bronchodilators, IV Solu-Medrol, antibiotics in the form of Zosyn and Zyvox. She is also on Diflucan. Anticoagulated with Xarelto. Blood and sputum cultures revealed no growth. Chest x-ray remains stable with underlying emphysematous changes and patchy infiltrate of the right upper lobe as well as left medial lung. Some chronicity. The patient is seen today 04/09/2021 in follow-up on the regular medical floor. She is awake and alert in no acute distress. Feeling back to her baseline as far as her breathing is concerned. Continues to maintain O2 saturations in the 90s on 3 L/m per nasal cannula. Normal saline at 50 MLS per hour. He remains on antibiotics in the form of Zosyn. Continued on DuoNeb inhalations, Pulmicort and Perforomist inhalations, prednisone. Anticoagulated with Xarelto. Sputum culture revealed no growth. Blood cultures reveal no growth. White count 21.0. Hemoglobin 11.5. Sodium 133. Potassium 4.5. Creatinine 0.61. Pro-calcitonin 0.06. The patient is seen today 04/10/2021 in follow-up on the regular medical floor. Resting comfortably in bed. Awake and alert in no acute distress. HEENT O2 saturations in the 90s on 3 L/m per nasal cannula. She has normal saline running at 50 MLS per hour. Her appetite is improved. He is feeling stronger. Denies any worsening shortness of breath. She is now on Augmentin. Continued on bronchodilators. Anticoagulated with Xarelto. Objective - Vital Signs Vital signs: Vital Signs Temp 98.0 F 04/10/21 07:46 Pulse 110 H 04/10/21 13:03 Resp 20 04/10/21 08:18 BP 134/77 04/10/21 07:46 Pulse Ox 100 04/10/21 07:46 Intake & Output 04/09/21 04/10/21 04/10/21 18:59 06:59 18:59 Intake Total 900 Output Total 800 300 Balance 100 -300 Intake: Oral 900 Output: Urine 800 300 Other: Voiding Method External Catheter External Catheter # Bowel Movements 2 - Exam GENERAL EXAM: Alert, frail, pleasant 80-year-old female, on 3 L/m per nasal cannula, comfortable in no apparent distress. HEAD: Normocephalic. EYES: Normal reaction of pupils, equal size. NOSE: Clear with pink turbinates. THROAT: No erythema or exudates. NECK: No masses, no JVD. CHEST: No chest wall deformity. LUNGS: Equal air entry with bilateral scattered rhonchi. CVS: S1 and S2 normal with no audible murmur, regular rhythm. ABDOMEN: No hepatosplenomegaly, normal bowel sounds, no guarding or rigidity. SPINE: No scoliosis or deformity SKIN: No rashes CENTRAL NERVOUS SYSTEM: No focal deficits, tone is normal in all 4 extremities. EXTREMITIES: There is no peripheral edema. No clubbing, no cyanosis. Peripheral pulses are intact. - Labs CBC & Chem 7: 04/09/21 02:19 04/09/21 02:19 Labs: Microbiology - Last 24 Hours (Table) 04/08/21 11:37 Nasal Screen MRSA/MSSA - Final Nasopharyngeal Swab Assessment and Plan Assessment: 1 Acute on chronic hypoxemic respiratory failure secondary to right upper lobe pneumonia some limited left midlung infiltrate. Currently on 3 L nasal cannula. 2 Severe COPD, with an FEV1 that's 50% of predicted. 3 Prior history of methicillin-resistant staph aureus pneumonia. 4 Prior history of coronavirus infection, October 2020. 5 Chronic hypoxemic respiratory failure, currently on home O2 at 3 L to 4 L/m. 6 Chronic scarring, right upper lobe. 7 Prior history of [id number] tobacco use. 8 Compression fractures, thoracic and lumbar spine. 9 Severe anorexia/cachexia syndrome. 10 History of seizure disorder. 11 History of chronic anxiety. 12 Secondary pulmonary hypertension. 13 History of CVA. Plan: The patient was seen and evaluated Currently stable and on 3 L nasal cannula Continue Augmentin, bronchodilators, and Xarelto Titrate the FiO2 as tolerated Plan is to transfer back to [facility] upon discharge I, the cosigning physician, performed a history & physical examination of the patient. Lungs sounds with bilateral scattered rhonchi. Maintaining good O2 saturations in the 90s on 3 L/m per nasal cannula. I discussed the assessment and plan of care with my nurse practitioner, Darlene Underwood. I attest to the above note as dictated by her.
--- NOTE | 2021-04-10 17:00 | P.PN ---
Subjective Progress Note Date: 04/09/21 Principal diagnosis: Pneumonia Patient is a 80-year-old female, presented to the hospital with increasing shortness of breath and cough and this patient has been diagnosed with a pneumonia consult for possible gram-negative. On today's evaluation that is 04/09/2021, the patient remains to be afebrile, the patient is breathing comfortably on 3 L nasal cannula, patient denies chest pain, the patient cough has decreased intensity and is not bringing up any sputum , the patient denies abdominal pain or diarrhea has been reported by the nursing staff Objective - Vital Signs Vital signs: Vital Signs Temp 97.8 F 04/09/21 19:34 Pulse 98 04/09/21 20:32 Resp 18 04/09/21 19:37 BP 118/61 04/09/21 19:34 Pulse Ox 99 04/09/21 19:34 Intake & Output 04/09/21 04/09/21 04/10/21 06:59 18:59 06:59 Intake Total 1100 900 Output Total 900 800 Balance 200 100 Intake: Intake, IV Titration 800 Amount Piperacillin-Tazobactam 3 200 .375 gm In Sodium Chloride 0.9% 100 ml @ 25 mls/hr IVPB Q8H RUBIN Rx#: [id number] Sodium Chloride 0.9% 1, 600 000 ml @ 50 mls/hr IV . Q20H RUBIN Rx#:[id number] Oral 300 900 Output: Urine 900 800 Other: Voiding Method External Catheter External Catheter External Catheter # Bowel Movements 2 - Exam GENERAL DESCRIPTION:[ Patient is awake and alert in no distress] HEENT: [Oral mucosa is dry and no pharyngeal erythema] RESPIRATORY SYSTEM: [Unlabored breathing Decreased breath sounds at the Base] CARDIA VASCULAR SYSTEM: [S1-S2 regular rate and rhythm no murmur] GI: [Abdominal soft there's no tenderness no organomegaly] EXTREMITIES: [No edema feet] - Labs CBC & Chem 7: 04/09/21 02:19 04/09/21 02:19 Labs: Abnormal Lab Results - Last 24 Hours (Table) 04/09/21 04/09/21 Range/Units 02:19 02:19 WBC 21.0 H (3.8-10.6) k/uL MCHC 30.7 L (31.0-37.0) g/dL Neutrophils # 18.5 H (1.3-7.7) k/uL Monocytes # 1.1 H (0-1.0) k/uL Sodium 133 L (137-145) mmol/L Chloride 97 L (98-107) mmol/L Carbon Dioxide 34 H (22-30) mmol/L BUN 21 H (7-17) mg/dL Glucose 107 H (74-99) mg/dL Microbiology - Last 24 Hours (Table) 04/08/21 11:37 Nasal Screen MRSA/MSSA - Final Nasopharyngeal Swab 04/02/21 22:00 Blood Culture - Final Blood No Growth after 144 hours 04/02/21 20:59 Blood Culture - Final Blood No Growth after 144 hours Assessment and Plan (1) Right upper lobe pneumonia Current Visit: Yes Status: Acute Code(s): J18.9 - PNEUMONIA, UNSPECIFIED ORGANISM SNOMED Code(s): 902973008 Plan: 1patient presented to hospital with sepsis in this patient did have a fever and elevated white count is concerning for pneumonia question of aspiration/gram- negative patient sputum has been usual respiratory delvis and blood culture had been negative, patient has been switched over to oral Augmentin to continue for a short course Time with Patient: Less than 30
--- NOTE | 2021-04-10 17:01 | P.PN ---
Subjective Progress Note Date: 04/10/21 Principal diagnosis: Pneumonia Patient is a 80-year-old female, presented to the hospital with increasing shortness of breath and cough and this patient has been diagnosed with a pneumonia consult for possible gram-negative. On today's evaluation that is 04/10/2021, the patient denies any fever or chills, the patient is breathing comfortably on 3 L nasal cannula, patient denies chest pain, the patient cough has decreased intensity and mostly dry in nature , the patient denies abdominal pain or diarrhea has been reported by the nursing staff Objective - Vital Signs Vital signs: Vital Signs Temp 98.3 F 04/10/21 14:00 Pulse 107 H 04/10/21 14:00 Resp 18 04/10/21 14:00 BP 128/73 04/10/21 14:00 Pulse Ox 92 L 04/10/21 14:00 Intake & Output 04/09/21 04/10/21 04/10/21 18:59 06:59 18:59 Intake Total 900 Output Total 800 300 Balance 100 -300 Intake: Oral 900 Output: Urine 800 300 Other: Voiding Method External Catheter External Catheter # Bowel Movements 2 - Exam GENERAL DESCRIPTION:[ Patient is awake and alert in no distress] HEENT: [Oral mucosa is dry and no pharyngeal erythema] RESPIRATORY SYSTEM: [Unlabored breathing Decreased breath sounds at the Base] CARDIA VASCULAR SYSTEM: [S1-S2 regular rate and rhythm no murmur] GI: [Abdominal soft there's no tenderness no organomegaly] EXTREMITIES: [No edema feet] - Labs CBC & Chem 7: 04/09/21 02:19 04/09/21 02:19 Labs: Microbiology - Last 24 Hours (Table) 04/08/21 11:37 Nasal Screen MRSA/MSSA - Final Nasopharyngeal Swab Assessment and Plan (1) Right upper lobe pneumonia Current Visit: Yes Status: Acute Code(s): J18.9 - PNEUMONIA, UNSPECIFIED ORGANISM SNOMED Code(s): 869220435 Plan: 1patient presented to hospital with sepsis in this patient did have a fever and elevated white count is concerning for pneumonia question of aspiration/gram- negative patient sputum has been usual respiratory delvis and blood culture had been negative, patient has been switched over to oral Augmentin to continue for a short course 2-patient with leukocytosis which could be steroid effect versus oropharyngeal candidiasis, will add nystatin swish and swallow and monitor white count closely Time with Patient: Less than 30
[2021-04-10] MEDS: ALPRAZolam 0.25 MG TAB PO PRN (17:22)
[2021-04-10] MEDS: CHOLECALCIFEROL 25 MCG (1000 IU) TABLET PO SCH (17:22)
[2021-04-10] MEDS: FERROUS SULFATE 325 MG TAB PO SCH (17:22)
[2021-04-10] MEDS: ASCORBIC ACID 500 MG TAB PO SCH (17:23)
[2021-04-10] MEDS: RIVAROXABAN 20 MG TAB PO SCH (17:23)
--- NOTE | 2021-04-10 17:39 | P.PN ---
Subjective This is a pleasant 80-year-old patient,from [facility]. followed by Dr. Granado. . 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 Has been n onambulatory. Bilateral pulmonary embolism in October 2020 on xarelto, DO NOT RESUSCITATE Patient now presents with increasing shortness of breath. Has had a cough she says for about 2 weeks. Bringing up green sputum. Very congested. Decreased appetite. Patient is weak and tired. Not sure if she's had a fever. Tired. Patient is a full assist. No hemoptysis. Admitted with right upper lobe pneumonia, started on IV Zosyn. Acute hypoxic respiratory failure on LCannula. Pharyngeal candidiasis. Started on Diflucan April 04: Short of breath but a bit better. Less congested cough. Eating a bit better. Propped up in bed. 3 L nasal cannula. Tired. April 05: Short of breath. Tired. Decreased appetite. 4 L nasal cannula. April 06: Reclining in chair. Eating a bit better today. Cough is sputum. Tired. Shortness of breath. March 2016: In bed. Eating fair. Congested cough is sputum. Short of breath. 04/08/2021 This is a pleasant 80 years old female with multiple medical problems including severe COPD presents with acute exacerbation of her COPD on the top of that she has bilateral pneumonia of the right upper lobe and the left lower lobe and she's been covered with multiple antibiotics including Diflucan, Zyvox orally and Zosyn. Her pro-calcitonin checked on admission was normal at 0.09 and yesterday 0.06. Leukocytosis is trending down to 14.1 Patient still have some shortness of breath and expiratory wheezing on examination. Norvasc was added today for better blood pressure controlled She continue also on Solu-Medrol 40 mg twice daily, home dose of Xarelto for her history of bilateral pulmonary embolism normal saline at 50 mL per hour 04/09/2021 Patient still short of breath while she is a staying in bed most of the time. She does not have much tachypnea at rest but once she starts talking she did get more short of breath. Blood pressure is 114/76 after starting her on Norvasc 2.5 mg. She has some leukocytosis secondary to steroid effect. She is continued on prednisone 30 mg daily. Antibiotics were adjusted to Zosyn and Diflucan only. Also she is on Xarelto on normal saline at 50 mL per hour. 04/10/2021 Patient presents with right upper lobe pneumonia and she's been treated with IV antibiotics Zosyn as well as antifungal Diflucan and on the top of her severe acute COPD exacerbation and today she was doing much better her breathing was significantly quiet compared to one week ago. She still on a 3 L/m of oxygen. But she says most of the time in her bed and she got exertional dyspnea that she tried to move. However she still improving gradually and slowly with pulmonary and infectious disease teams on the case. She is currently kept on Augmentin, Diflucan, nystatin, prednisone 30 mg as well as her home dose of Xarelto on review of her history of bilateral PE. Physical therapist recommended rehab versus ECF placement. She isn't from [facility] Objective - Vital Signs Vital signs: Vital Signs Temp 98.0 F 04/10/21 07:46 Pulse 80 04/10/21 08:18 Resp 20 04/10/21 08:18 BP 134/77 04/10/21 07:46 Pulse Ox 100 04/10/21 07:46 Intake & Output 04/09/21 04/10/21 04/10/21 18:59 06:59 18:59 Intake Total 900 Output Total 800 300 Balance 100 -300 Intake: Oral 900 Output: Urine 800 300 Other: Voiding Method External Catheter External Catheter # Bowel Movements 2 - Exam -GENERAL: The patient is alert and oriented x3, not in any acute distress. Cachectic HEENT: Pupils are round and equally reacting to light. EOMI. No scleral icterus. No conjunctival pallor. Normocephalic, atraumatic. No pharyngeal erythema. No thyromegaly. CARDIOVASCULAR: S1 and S2 present. No murmurs, rubs, or gallops. -PULMONARY: Chest is clear to auscultation. Expiratory wheezing ABDOMEN: Soft, nontender, nondistended, normoactive bowel sounds. No palpable organomegaly. MUSCULOSKELETAL: No joint swelling or deformity. EXTREMITIES: No cyanosis, clubbing, or pedal edema. NEUROLOGICAL: Gross neurological examination did not reveal any focal deficits. SKIN: No rashes. no petechiae. - Labs CBC & Chem 7: 04/09/21 02:19 04/09/21 02:19 Labs: Microbiology - Last 24 Hours (Table) 04/08/21 11:37 Nasal Screen MRSA/MSSA - Final Nasopharyngeal Swab Assessment and Plan Assessment: -Right upper lobe pneumonia, suspect gram-negative organism: Slow to respond Continue with Augmentin. Zyvox was discontinued. -Acute hypoxic respiratory failure from pneumonia/COPD exacerbation: 3 L nasal cannula Continue with the prednisone -Pharyngeal candidiasis Diflucan. Also add nystatin -Normocytic anemia of chronic disease. Follow H&H -Chronic advanced prednisone dependent COPD in a previous smoker: Slow to respond DuoNeb 4 times a day, stop Symbicort ., IV Solu-Medrol. Perforomist and Pulmicort -Chronic bilateral pulmonary embolism Xarelto -chronic hypoxic respiratory failure from COPD exacerbation: 3 L nasal cannula -Severe protein calorie malnutrition from decreased oral intake Nutritional supplement. Consult dietitian -Left hemiparesis from prior stroke Patient non-ambulatory -Chronic medical debility She is a full assist non- ambulatory -Essential hypertension Cozaar 25 mg daily -GERD Protonix 40 mg daily -muscular skeletal pain. Primary osteoarthritis [place] 5/500 one tablet every 6 when necessary -DO NOT RESUSCITATE
[2021-04-10] MEDS: NYSTATIN 100,000 UNIT/ML SUSP 500,000 UNIT/5 ML CUP PO SCH ×2 (19:49→22:06)
[2021-04-10] MEDS: FLUTICASONE 50MCG/SPRAY NASAL 16GM EA NOSTRIL SCH (22:06)
[2021-04-11] MEDS: SODIUM CHLORIDE 0.9% 1,000 ML IV SCH (04:53)
[2021-04-11] MEDS: HYDROcodone/APAP 5-325MG 1 EACH TAB PO SCH (05:42)
[2021-04-11] MEDS: FORMOTEROL FUMARATE 20 MCG/2 ML NEBU INHALATION SCH (08:57)
[2021-04-11] MEDS: BUDESONIDE 1 MG/2 ML NEBU INHALATION SCH (08:57)
[2021-04-11] MEDS: IPRATROPIUM-ALBUTEROL 3 ML NEB INHALATION SCH ×3 (08:57→16:42)
[2021-04-11 09:45] VITALS: TEMP 98.5
[2021-04-11] MEDS: LIDOCAINE 5% PATCH TOPICAL SCH (10:04)
[2021-04-11] MEDS: LOSARTAN 25 MG TAB PO SCH (10:05)
[2021-04-11] MEDS: FLUCONAZOLE 100 MG TAB PO SCH (10:05)
[2021-04-11] MEDS: amLODIPine 2.5 MG TAB PO SCH (10:05)
[2021-04-11] MEDS: predniSONE 10 MG TAB PO SCH (10:05)
[2021-04-11] MEDS: PANTOPRAZOLE 40 MG TABLET PO SCH (10:05)
[2021-04-11] MEDS: guaiFENesin 600 MG TABLET.ER PO SCH (10:05)
[2021-04-11] MEDS: AMOXIC-POT CLAV 875-125MG 1 EACH TAB PO SCH (10:06)
[2021-04-11] MEDS: levETIRAcetam ORAL SOLN 500 MG/5 ML CUP PO SCH (10:06)
[2021-04-11] MEDS: NYSTATIN 100,000 UNIT/ML SUSP 500,000 UNIT/5 ML CUP PO SCH (10:07)
[2021-04-11] MEDS: LORATADINE-PSEUDOEPH 5-120 MG 1 EACH TAB.ER.12H PO SCH (10:07)
[2021-04-11 14:24] VITALS: BP 146/81; RESP 18
--- NOTE | 2021-04-11 14:27 | P.PN ---
Subjective Progress Note Date: 04/11/21 Principal diagnosis: Acute right upper lobe pneumonia, acute exacerbation of COPD This is a very pleasant 73-year-old male patient who follows with the [facility] for his primary care needs. He has a history of gout, hyperlipidemia, chronic tobacco dependence of greater than 40 years. Approximately the first part of January 2021 the patient developed facial swelling and edema of the right neck and upper extremity. There was some concern regarding possible ALLERGIES and he had been referred to ear nose and throat physician who was treating him with steroids, Pepcid, Zyrtec without much improvement. The patient's edema continued and a CAT scan of the neck and chest were performed yesterday and the patient was found to have asymmetry with increased soft tissue in the region of the left tubal and palatine tonsils warrants direct visualization to exclude mucosal lesion/mass recommended. Right supraclavicular lymphadenopathy measuring up to 2.1 cm extending to the left of the cricoid cartilage. Metastatic disease is considered. The chest revealed conglomerate mediastinal and right hilar lymphadenopathy with bhupendra masses measuring up to nearly 10 cm. There is mass effect with significant narrowing and near occlusion of the SVC. Additional extrinsic compression mildly narrow in the right main pulmonary artery, significant narrowing of the right upper lobe and middle lobe arterial branches and probably direct invasion into and narrowing of the right interlobar segment of the right pulmonary artery. Probable occlusion of the right superior pulmonary vein. There is a spiculated anterior right upper lobe mass measuring 3.2 cm. Reticular changes in the right upper lobe likely due to venous congestion. Patchy change anterior right midlung probably postobstructive pneumonia. Small right pleural effusion. In the upper abdomen a suspicious 1.3 cm soft tissue deposit just above the left adrenal gland and a 1.5 cm soft tissue nodule anterior to the spleen. The patient was referred to the emergency room today based on these findings. White count 13.1. Hemoglobin 11.9. Platelets 558. INR 1.7. Sodium 1:30. Potassium 4.5. BUN 17. Creatinine 0.65. Glucose 109. AST 24. ALT 16. Lipase 385. BNP 168. Troponin 0.012. He is seen today in consultation in the emergency department. He is currently resting on the stretcher. Awake and alert in no acute distress. Maintaining O2 saturations up to 99% on room air. He's afebrile. Slightly hypertensive. He does have noted right-sided facial right neck, right upper extremity edema. There is some engorged blood vessels on the chest. The patient has had some weight loss but his appetite remains good. No hemoptysis. No significant cough or congestion. The patient is seen today 04/09/2021 in follow-up on the selective care unit. He is currently sitting up in bed. Awake and alert in no acute distress. He is maintaining O2 saturations in the 90s on room air. No worsening right-sided facial edema. No difficulty in swallowing. No difficulty in breathing. X-ray continues to revealed right apical lung mass and abnormal right hilum and right paratracheal region. There is an ill-defined 2.9 cm mass in the right lung apex. MRI of the brain revealed no pathologic enhancement throughout the brain parenchyma. No evidence of metastatic disease. White count 10.2. Hemoglobin 11.1. Platelets 552. Sodium 130. Potassium 4.6. Creatinine 0.65. Glucose 125. He is continued on Decadron 6 mg IVP every 6 hours. Heparin for DVT prophylaxis. The patient is seen today 04/10/2021 follow-up on the selective care unit. He is awake and alert in no acute distress. He is maintaining good O2 saturations in the 90s on room air. No IV fluids. Sodium 129. Potassium 4.5. Chloride 95. Bicarb 28. BUN 20. Creatinine 0.73. Glucose 168. Calcium 9.4. He remains on Decadron 6 mg IVP every 6 hours. Heparin for DVT prophylaxis. On 04/11/2021 patient seen in follow-up on medical surgical floor. She still sounding congested, she states that she is not able to bring up much phlegm. Does not appear to be in any acute distress. Currently on 3 L of oxygen pulse ox is 96%, she's been afebrile overnight, vital signs have been stable, overall general condition is frail, but appears to be in no acute distress although she is been slow to improve. Her last chest x-ray from 03/31/2021 continued patchy left basilar infiltrate, and irregular patchy opacities throughout the right upper lobe with improvement in aeration of the right base. Patient's IV antibiotics have been converted to Augmentin, patient had completed a course of Zyvox. Blood and sputum cultures have shown no growth. No new labs today. The vital signs have been stable. Objective - Vital Signs Vital signs: Vital Signs Temp 98.5 F 04/11/21 08:16 Pulse 100 04/11/21 12:35 Resp 16 04/11/21 11:23 BP 147/59 04/11/21 08:16 Pulse Ox 96 04/11/21 08:16 Intake & Output 04/10/21 04/11/21 04/11/21 18:59 06:59 18:59 Intake Total 480 Output Total 250 Balance -250 480 Intake: Oral 480 Output: Urine 250 Other: Voiding Method External Catheter External Catheter External Catheter # Voids 2 # Bowel Movements 2 - Exam GENERAL EXAM: Alert, very pleasant, 80-year-old frail looking white female, she is on 3 L of oxygen pulse ox is 96% comfortable in no apparent distress. HEAD: Normocephalic/atraumatic. EYES: Normal reaction of pupils, equal size. Conjunctiva pink, sclera white. NOSE: Clear with pink turbinates. THROAT: No erythema or exudates. NECK: No masses, no JVD, no thyroid enlargement, no adenopathy. CHEST: No chest wall deformity. Symmetrical expansion. LUNGS: Equal air entry with crackles, right upper lobe, right lower lobe, and left lower lobe CVS: Regular rate and rhythm, normal S1 and S2, no gallops, no murmurs, no rubs ABDOMEN: Soft, nontender. No hepatosplenomegaly, normal bowel sounds, no guardi ng or rigidity. EXTREMITIES: No clubbing, no edema, no cyanosis, 2+ pulses and upper and lower extremities. MUSCULOSKELETAL: Muscle strength and tone normal. SPINE: No scoliosis or deformity SKIN: No rashes CENTRAL NERVOUS SYSTEM: Alert and oriented -3. No focal deficits, tone is normal in all 4 extremities. PSYCHIATRIC: Alert and oriented -3. Appropriate affect. Intact judgment and insight. - Labs CBC & Chem 7: 04/09/21 02:19 04/09/21 02:19 Assessment and Plan Plan: Assessment: #1. Acute on chronic hypoxic respiratory failure related to acute pneumonia, possibly healthcare acquired. COVID-19 PCR was negative, influenza A and B were negative, chest x-ray showed scarring and atelectasis at the lung bases, and infiltrate in the right upper lobe with mild volume loss increased from prior exam. Note the patient does have area of chronic scarring in the right upper lobe related to previous history of pneumonia. Blood and sputum cultures have shown no growth #2. Previous history of MRSA pneumonia #3. History of COVID-19 infection in October 2020 #4. Advanced COPD on home oxygen most recently has been wearing 4 L of oxygen on a regular basis, baseline FEV1 of less than 50% of predicted #5. Chronic scarring in the right upper lobe #7. 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 Compression fractures of the thoracolumbar spine with kyphoscoliosis #9. 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 History of seizure disorder #11. Chronic anxiety #12. History of pulmonary hypertension related to chronic advanced lung disease #13. History of CVA #14. Poor overall functional performance Plan: Continue current medical treatment Continue antibiotics per ID service recommendations Currently on Augmentin, Zyvox has been completed Microbiology has been negative including blood and sputum Increase activity as tolerated Discharge planning is in progress for possible discharge to [facility] Obtain follow-up chest x-ray tomorrow I performed a history & physical examination of the patient and discussed their management with my nurse practitioner, Leni Zarco. I reviewed the nurse practitioner's note and agree with the documented findings and plan of care. Lung sounds are positive for coarse crackles throughout the lung atkins. The f indings and the impression was discussed with the patient. I attest to the documentation by the nurse practitioner. Time with Patient: Less than 30
--- NOTE | 2021-04-11 14:28 | P.DS ---
Providers Date of admission: 04/02/21 23:36 Expected date of discharge: 04/11/21 Attending physician: Abdulkadir Rodriguez Consults: 04/02/21 23:38 Consult Physician Routine Consulting Provider: Nora Linda Consult Reason/Comments: Sepsis, pneumonia Do you want consulting provider notified?: Yes Consult Physician Routine Consulting Provider: Driss Cornelius Consult Reason/Comments: Sepsis, pneumonia Do you want consulting provider notified?: Yes 04/09/21 02:03 Consult Physician Routine Consulting Provider: Emil Echavarria Consult Reason/Comments: abnormal ECG Do you want consulting provider notified?: Yes, Notify in am Primary care physician: [facility] Course: Chief Complaint: Cough History of presenting complaint: This is a pleasant 80-year-old patient,from [facility]. followed by Dr. Granado. . 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 Has been nonambulatory. Bilateral pulmonary embolism in October 2020 on xarelto, DO NOT RESUSCITATE Patient now presents with increasing shortness of breath. Has had a cough she says for about 2 weeks. Bringing up green sputum. Very congested. Decreased appetite. Patient is weak and tired. Not sure if she's had a fever. Tired. Patient is a full assist. No hemoptysis. Admitted with right upper lobe pneumonia, started on IV Zosyn. Acute hypoxic respiratory failure on 5 LCannula. Pharyngeal candidiasis. Started on Diflucan some improvement. Patient is very frail. Has advanced COPD. Eating some. April 11: Gets tired easily. Eating some. Spoke to patient daughter Isabel Cristobal. Did explain to her patient's overall guarded prognosis. She in the family of elevated. Patient being changed over to oral antibiotic and completed a course of Augmentin and Diflucan. Will return to the [facility]. Discussion and discharge planning more than 35 minutes Consultation: Dr. Hauser and partners from pulmonary Dr. Cornelius from [facility] Past medical history to include: COPD, stroke with left-sided weakness, home oxygen 3 L, bilateral pulmonary embolism, protein calorie malnutrition. COVID-19 Social history: smoking from the age of 16 up to 2019. One pack a day. No alcohol. at [facility]. Family history: Mother from a ruptured brain aneurysm. Coronary artery disease Physical examination: VITAL SIGNS: 98.5, 111, 18, 146-81, 98% on 3 L GENERAL: [ loss of subcutaneous fat and muscle mass, prominent bones. ] reclining in chair. Short of breath. Tired EYES: Pupils equal. Conjunctiva normal. HEENT: External appearance of nose and ears normal, oral cavity grossly normal. White patches in the pharynx NECK: JVD not raised; masses not palpable. HEART: First and second heart sounds are normal; no edema. LUNGS: Respiratory rate increase; decrease breath sounds, prolonged expiration. ABDOMEN: Soft, nontender, liver spleen not palpable, no masses palpable. PSYCH: Alert and oriented x3; mood and affect anxious. MUSCULOSKELETAL:No Clubbing/cyanosis;muscles-grossly intact INVESTIGATIONS, reviewed in the clinical context: April 09: White count 21 hemoglobin 11.5 potassium 4.5 creatinine 0.61 albumin 2.7 Coronavirus [/influenza type A/influenza type B: Not detected EKG tracing personally reviewed by me-normal sinus rhythm, rate 108, some ST segment depression in inferolateral leads Chest x-ray film personally reviewed by me-right upper lobe infiltrate. Advanced emphysema. Some chronic fibrotic findings Assessment and plan: -Right upper lobe pneumonia, suspect gram-negative organism: IV Zosyn. Patient to be completed course of Augmentin -Acute hypoxic respiratory failure from pneumonia/COPD exacerbation: 3 L nasal cannula -Pharyngeal candidiasis Diflucan: 7 more days -Normocytic anemia of chronic disease. Follow H&H -Chronic advanced prednisone dependent COPD in a previous smoker: Slow to respond DuoNeb 4 times a day, stop Symbicort ., IV Avcc-Gxxtam-[id number] to prednisone. Perforomist and Pulmicort -Chronic bilateral pulmonary embolism Xarelto -chronic hypoxic respiratory failure from COPD exacerbation: 3 L nasal cannula -Severe protein calorie malnutrition from decreased oral intake Nutritional supplement. Consult dietitian -Left hemiparesis from prior stroke Patient non-ambulatory -Chronic medical debility She is a full assist non- ambulatory -Essential hypertension Cozaar 25 mg daily -GERD Protonix 40 mg daily -muscular skeletal pain. Primary osteoarthritis [place] 5/500 one tablet every 6 when necessary -DO NOT RESUSCITATE Disposition: ECF/[place] Plan - Discharge Summary Discharge Rx Participant: No New Discharge Prescriptions: New Fluconazole [Diflucan] 100 mg PO DAILY #7 tab Amoxic-Pot Clav 875-125Mg [Augmentin 875-125] 1 each PO Q12HR #10 tab Loratadine-Pseudoeph 5-120 mg [Claritin-D 12 Hour] 1 each PO Q12HR tablet amLODIPine [Norvasc] 2.5 mg PO DAILY tab Budesonide [Pulmicort] 1 mg INHALATION RT-BID ml Continue Sodium Chloride [Saline Nasal [place]] 1 spray EA NOSTRIL Q2H PRN PRN Reason: Congestion Magnesium Hydroxide [Milk of Magnesia Concentrate] 7,200 mg PO DAILY PRN PRN Reason: Constipation Na Phos,M-B/Na Phos,Di-Ba [Fleet Adult] 133 ml RECTAL DAILY PRN PRN Reason: Constipation bisacodyL [Dulcolax] 10 mg RECTAL DAILY PRN PRN Reason: Constipation predniSONE 10 mg PO DAILY@0800 Acetaminophen Tab [Tylenol] 500 mg PO Q6HR PRN tab PRN Reason: Fever And/ Or Pain Albuterol Sulfate [Albuterol Sulfate Hfa] 2 puff PO RT-Q6H PRN PRN Reason: Shortness Of Breath guaiFENesin [Mucinex] 600 mg PO BID@0800,2100 Lidocaine 5% Patch [Lidoderm 5% Patch] 1 patch TRANSDERM DAILY@0800 #3 patch Dronabinol [Marinol] 2.5 mg PO DAILY@0800 #3 cap HYDROcodone/APAP 5-325MG [[place] 5-325] 1 tab PO Q6H #12 tab Lactose-Reduced Food [Ensure Plus] 120 ml PO BID@0800,1700 levETIRAcetam ORAL SOLN [Keppra Oral Soln] 500 mg PO BID@0800,2100 Pantoprazole [Protonix] 40 mg PO DAILY@0600 Losartan [Cozaar] 25 mg PO DAILY@0800 Cholecalciferol [Vitamin D3 (25 Mcg = 1000 Iu)] 100 mcg PO DAILY@1700 Melatonin 3 mg PO HS PRN tablet PRN Reason: Insomnia Rivaroxaban [Xarelto] 20 mg PO DAILY@1700 Ascorbic Acid [Vitamin C] 500 mg PO DAILY@1700 Ferrous Sulfate [Iron (65 MG Elemental)] 325 mg PO DAILY@1700 Fluticasone Nasal [place] [Flonase Nasal [place]] 2 spray EA NOSTRIL HS@2100 Changed ALPRAZolam [Xanax] 0.25 mg PO Q8H PRN #9 tab PRN Reason: Anxiety/Restlessness Ipratropium-Albuterol Nebulize [Duoneb 0.5 mg-3 mg/3 ml Soln] 3 ml INHALATION QID #0 Ipratropium-Albuterol Nebulize [Duoneb 0.5 mg-3 mg/3 ml Soln] 3 ml INHALATION Q3H PRN #0 PRN Reason: COPD Discontinued Budesonide-Formot 160-4.5 Mcg [Symbicort 160-4.5 Mcg Inhaler] 2 puff INHALATION RT-BID@0800,1700 guaiFENesin [guaiFENesin Oral Solution] 200 mg PO Q4H PRN PRN Reason: Cough Discharge Medication List Lactose-Reduced Food [Ensure Plus] 120 ml PO BID@0800,1700 10/16/20 [History] Losartan [Cozaar] 25 mg PO DAILY@0810/16/20 [History] Magnesium Hydroxide [Milk of Magnesia Concentrate] 7,200 mg PO DAILY PRN 10/16/20 [History] Na Phos,M-B/Na Phos,Di-Ba [Fleet Adult] 133 ml RECTAL DAILY PRN 10/16/20 [History] Pantoprazole [Protonix] 40 mg PO DAILY@0610/16/20 [History] Sodium Chloride [Saline Nasal [place]] 1 spray EA NOSTRIL Q2H PRN 10/16/20 [History] bisacodyL [Dulcolax] 10 mg RECTAL DAILY PRN 10/16/20 [History] levETIRAcetam ORAL SOLN [Keppra Oral Soln] 500 mg PO BID@0800,2100 10/16/20 [History] predniSONE 10 mg PO DAILY@0800 10/16/20 [History] Acetaminophen Tab [Tylenol] 500 mg PO Q6HR PRN tab 10/22/20 [Rx] Cholecalciferol [Vitamin D3 (25 Mcg = 1000 Iu)] 100 mcg PO DAILY@169911/03/20 [History] Melatonin 3 mg PO HS PRN tablet 11/09/20 [Rx] Rivaroxaban [Xarelto] 20 mg PO DAILY@169911/14/20 [History] Ascorbic Acid [Vitamin C] 500 mg PO DAILY@169911/28/20 [History] Albuterol Sulfate [Albuterol Sulfate Hfa] 2 puff PO RT-Q6H PRN 04/02/21 [History] Ferrous Sulfate [Iron (65 MG Elemental)] 325 mg PO DAILY@17004/02/21 [History] Fluticasone Nasal [place] [Flonase Nasal [place]] 2 spray EA NOSTRIL HS@209904/02/21 [History] guaiFENesin [Mucinex] 600 mg PO BID@0800,209904/02/21 [History] ALPRAZolam [Xanax] 0.25 mg PO Q8H PRN #9 tab 04/11/21 [Rx] Amoxic-Pot Clav 875-125Mg [Augmentin 875-125] 1 each PO Q12HR #10 tab 04/11/21 [Rx] Budesonide [Pulmicort] 1 mg INHALATION RT-BID ml 04/11/21 [Rx] Dronabinol [Marinol] 2.5 mg PO DAILY@0800 #3 cap 04/11/21 [Rx] Fluconazole [Diflucan] 100 mg PO DAILY #7 tab 04/11/21 [Rx] HYDROcodone/APAP 5-325MG [[place] 5-325] 1 tab PO Q6H #12 tab 04/11/21 [Rx] Ipratropium-Albuterol Nebulize [Duoneb 0.5 mg-3 mg/3 ml Soln] 3 ml INHALATION Q3H PRN #0 04/11/21 [Rx] Ipratropium-Albuterol Nebulize [Duoneb 0.5 mg-3 mg/3 ml Soln] 3 ml INHALATION QID #0 04/11/21 [Rx] Lidocaine 5% Patch [Lidoderm 5% Patch] 1 patch TRANSDERM DAILY@0800 #3 patch 04/11/21 [Rx] Loratadine-Pseudoeph 5-120 mg [Claritin-D 12 Hour] 1 each PO Q12HR tablet 04/11/21 [Rx] amLODIPine [Norvasc] 2.5 mg PO DAILY tab 04/11/21 [Rx] Follow up Appointment(s)/Referral(s): Jabari Granado DO [Primary Care Provider] - 1-2 Days Basha,Catracho, DO [Doctor of Osteopathic Medicine] - 1 Week
[2021-04-11] MEDS: ALPRAZolam 0.25 MG TAB PO PRN (16:10)
[2021-04-11 16:55] VITALS: PULSE 100
== END 2021-04-11 17:02 | DRG 871 ==
LOC: EC 20:47 → 3SCARD 23:36 → 4SSUR 23:59
PROVIDERS: ADMIT Hospitalist; ATTEND Hospitalist
DX: A41.9 Sepsis, unspecified organism (principal); J15.6 Pneumonia due to other Gram-negative bacteria; E43 Unspecified severe protein-calorie malnutrition; J96.21 Acute and chronic respiratory failure with hypoxia; B37.89 Other sites of candidiasis; Z68.1 Body mass index [BMI] 19.9 or less, adult; E87.1 Hypo-osmolality and hyponatremia; E87.2 Acidosis; I27.82 Chronic pulmonary embolism; I69.354 Hemiplegia and hemiparesis following cerebral infarction affecting left non-dominant side; I82.210 Acute embolism and thrombosis of superior vena cava; J98.11 Atelectasis; M48.56XA Collapsed vertebra, not elsewhere classified, lumbar region, initial encounter for fracture; M48.54XA Collapsed vertebra, not elsewhere classified, thoracic region, initial encounter for fracture; D63.8 Anemia in other chronic diseases classified elsewhere; E78.5 Hyperlipidemia, unspecified; E83.42 Hypomagnesemia; Z20.822 Contact with and (suspected) exposure to COVID-19; F41.9 Anxiety disorder, unspecified; G40.909 Epilepsy, unspecified, not intractable, without status epilepticus; I10 Essential (primary) hypertension; I27.29 Other secondary pulmonary hypertension; J43.9 Emphysema, unspecified; K21.9 Gastro-esophageal reflux disease without esophagitis; M19.91 Primary osteoarthritis, unspecified site; M41.9 Scoliosis, unspecified; R65.20 Severe sepsis without septic shock; T38.0X5A Adverse effect of glucocorticoids and synthetic analogues, initial encounter; Z66 Do not resuscitate; Z79.01 Long term (current) use of anticoagulants; Z79.51 Long term (current) use of inhaled steroids; Z79.52 Long term (current) use of systemic steroids; Z79.899 Other long term (current) drug therapy; Z80.52 Family history of malignant neoplasm of bladder; Z82.49 Family history of ischemic heart disease and other diseases of the circulatory system; Z83.3 Family history of diabetes mellitus; Z86.14 Personal history of Methicillin resistant Staphylococcus aureus infection; Z86.16 Personal history of COVID-19; Z87.01 Personal history of pneumonia (recurrent); Z87.891 Personal history of nicotine dependence; Z99.81 Dependence on supplemental oxygen
CPT/HCPCS: 36415; 71045; 80048; 80053; 83605; 83735; 84145; 84484; 85025; 86140; 87040; 87070; 87205; 87502; 87635; 93005; 94640; 94760; 96365; 96367; 99291